=== PATIENT | female | born 1985 | race American Indian/Alaskan Native ===

== ENCOUNTER 2024-03-18 08:36 | Emergency (ER) | payer MEDICAID, SELFPAY ==
[2024-03-18 08:48] VITALS: BP 131/89; PULSE 81; RESP 16; TEMP 36.5; O2SAT 99; BMI 31.1
[2024-03-18 08:57] LABS: Appearance Urine Slightly Cloudy (Clear); Bilirubin Urine Negative (Negative); Blood Urine 1+ (Negative); Color Urine Yellow (Yellow); Glucose Urine Negative (Negative); Ketones Urine Negative (Negative); Leukocyte Esterase Urine Trace (Negative); Nitrite Urine Negative (Negative); Protein Urine Negative (Negative); Specific Gravity Urine 1.015 (1.000-1.030); Urobilinogen Urine 0.2 (0.2-1.0)
[2024-03-18 09:06] LABS: Bacteria Urine Few; RBC Urine 0-2 (0-2); Squamous Epithelial Cell Urine Few (None-Few); WBC Urine 0-2 (0-5)
--- NOTE | 2024-03-18 09:21 | ED.GENADULT ---
HPI - General Adult General Chief complaint: Urogenital Problems, Female Stated complaint: UTI symptoms, chills, abdominal and back pain Time Seen by Provider: 03/18/24 08:48 History of Present Illness HPI narrative: Patient is a 38-year-old female that has had dysuria and frequency the last few days. She has been drinking a lot a water. She has had urinary frequency inability to completely void, mild dysuria. No blood in her urine. She has had a history UTIs remotely but nothing recently. She feels she does have UTIs this seems similar in the past. She had a rash from amoxicillin during mono when she was 14, has not had any other penicillin at allergy symptoms. No shortness of breath, no fever, no rigors. Does feel occasionally chilled. She does not have a temp does not have a temperature now Related Data Home Medications ?Medication ?Instructions ?Recorded ?Confirmed clonazepam 0.5 mg tablet 0.5 mg PO HS PRN 03/18/24 03/18/24 dexmethylphenidate 15 mg 15 mg PO DAILY 03/18/24 03/18/24 capsule,extended release [id number] (Focalin XR) fluoxetine 20 mg capsule 60 mg PO DAILY 03/18/24 03/18/24 lorazepam 0.5 mg tablet (Ativan) 0.5 mg PO BID-TID PRN 03/18/24 03/18/24 Previous Rx's ?Medication ?Instructions ?Recorded phenazopyridine 200 mg tablet 200 mg PO Q8H PRN pain 6 doses #7 03/18/24 (Pyridium) tabs sulfamethoxazole 800 1 tab PO BID #14 tabs 03/18/24 mg-trimethoprim 160 mg tablet (Bactrim DS) Allergies Allergy/AdvReac Type Severity Reaction Status Date / Time Penicillins Allergy Severe Hives Verified 03/18/24 08:48 Review of Systems Status of ROS: Reports: 6 or more systems reviewed and unremarkable except as noted in History and below PFSH PFSH Social History Smoking Status: Never smoker Do you use any of these nicotine containing products: None Second hand tobacco smoke exposure: No How often do you have a drink containing alcohol: never AUDIT-C Alcohol total score: 0 Non-prescribed substance use: denies use Non-prescribed substance use details: 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 Exam Narrative: Exam Narrative: Objective: Patient's vital signs are within normal limits She is alert orient x3 no distress She has mild left-sided greater than right CVA tenderness, mild suprapubic tenderness to palpation. Neurologic nonfocal Alert orient x3, no cyanosis, good peripheral perfusion noted Const: Vital Signs, click to edit/add: Vital Signs - 24 hr 03/18/24 08:48 Temperature 97.7 F Pulse Rate [Pulse Oximeter] 81 Respiratory Rate 16 Blood Pressure [Ri t Upper Arm] 131/89 Pulse Oximetry 99 Oxygen Delivery Me thod Room Air Course Vital Signs Vital signs: Initial Vital Signs Temperature 97.7 F 03/18/24 08:48 Temperature Source Temporal Artery Scan 03/18/24 08:48 Pulse Rate 81 03/18/24 08:48 Pulse Rhythm Regular 03/18/24 08:48 Respiratory Rate 16 03/18/24 08:48 Blood Pressure 131/89 03/18/24 08:48 Blood Pressure Mean 103 03/18/24 08:48 Blood Pressure Position Sitting 03/18/24 08:48 Pulse Oximetry 99 03/18/24 08:48 Oxygen Delivery Method Room Air 03/18/24 08:48 Vital Signs Temperature 97.7 F 03/18/24 08:48 Pulse Rate 81 03/18/24 08:48 Respiratory Rate 16 03/18/24 08:48 Blood Pressure 131/89 03/18/24 08:48 Pulse Oximetry 99 03/18/24 08:48 Oxygen Delivery Method Room Air 03/18/24 08:48 Temperature 97.7 F 03/18/24 08:48 Pulse Rate 81 03/18/24 08:48 Respiratory Rate 16 03/18/24 08:48 Blood Pressure 131/89 03/18/24 08:48 Pulse Oximetry 99 03/18/24 08:48 Oxygen Delivery Method Room Air 03/18/24 08:48 Medications Administered Medications: Discontinued Medications Generic Name Dose Route Start Last Admin Trade Name Freq PRN Reason Stop Dose Admin Ceftriaxone Sodium 500 mg 03/18/24 09:14 03/18/24 09:26 Ceftriaxone 500 Mg Vial IM 03/18/24 09:15 500 mg ONCE ONE Administration Lidocaine HCl 1 ml 03/18/24 09:14 03/18/24 09:27 Lidocaine 1% 5 Ml (Pf) 5 Ml Vial IM 1 ml DIRECTED PRN Administration Pain Phenazopyridine HCl 200 mg 03/18/24 09:17 03/18/24 09:27 Phenazopyridine Hcl 200 Mg Tablet PO 03/18/24 09:18 200 mg ONCE ONE Administration Medical Decision Making MDM Narrative Medical decision making narrative: 38-year-old female with dysuria for inability for completely void frequency. Likely UTI. She has had a history UTI in the past. She has been drinking a large amount of water. She has a slightly cloudy urine, 1+ blood trace leukocyte esterase, not much for cells in the back urine but she does have bacteria. Culture will be obtained. I think at this point given the patient's symptoms of urinary frequency dysuria mild left greater than right flank discomfort , as well as suprapubic discomfort. Would make sense to do treatment for a UTI. Await urine culture. Will give her Rocephin 500 mg IM, give her Bactrim DS 1 p.o. b.i.d. x7 days, Pyridium for home use t.i.d. p.r.n. skin structure this will turn your urine orange. Return if not improving over the next 12-24 hours, sooner problems concerns worsening. Would recommend she recheck with regular doctor next 3-4 days, she was comfortable this plan will follow up as directed Lab Data Labs: Lab Results 03/18/24 Range/Units 08:45 Urine Color Yellow (Yellow) Urine Appearance Slightly Cloudy A (Clear) Urine pH 7.0 (5.0-8.5) Ur Specific [place] 1.015 (1.000-1.030) Urine Protein Negative (Negative) Urine Glucose (UA) Negative (Negative) Urine Ketones Negative (Negative) Urine Blood 1+ A (Negative) Urine Nitrite Negative (Negative) Urine Bilirubin Negative (Negative) Urine Urobilinogen 0.2 (0.2-1.0) Ur Leukocyte Esterase Trace A (Negative) Urine RBC 0-2 (0-2) Urine WBC 0-2 (0-5) Ur Squamous Epith Cells Few (None-Few) Urine Bacteria Few A (None) Discharge Plan Discharge Clinical Impression: Urinary tract infection, Dysuria Patient Disposition: Home, Self-Care Condition: Stable Additional Instructions: Antibiotics and pyridium at home as prescribed, light activity, adequate fluid intake. Recheck with regular doctor in 2-3 days, return to ED sooner problems concerns worsening. Activity Level: Light activity Discharge Diet: Regular Prescriptions: New sulfamethoxazole-trimethoprim [Bactrim DS] 800-160 mg tablet 1 tab PO BID Qty: 14 0RF phenazopyridine [Pyridium] 200 mg tablet 200 mg PO Q8H PRN (Reason: pain) Qty: 7 0RF No Action dexmethylphenidate [Focalin XR] 15 mg capsule,ER biphasic 50-50 15 mg PO DAILY fluoxetine 20 mg capsule 60 mg PO DAILY lorazepam [Ativan] 0.5 mg tablet 0.5 mg PO BID-TID PRN clonazepam 0.5 mg tablet 0.5 mg PO HS PRN Follow Up/Referrals: Provider,Not a Local [Primary Care Provider] - Stand Alone Forms: [employer] Info Instructions
[2024-03-18] MEDS: cefTRIAXone 500 MG VIAL IM (09:26)
[2024-03-18] MEDS: PHENAZOPYRIDINE HCL 200 MG TABLET PO (09:27)
[2024-03-18] MEDS: LIDOCAINE 1% 5 ml (pf) 5 ML VIAL 1 ML IM (09:27)
== END 2024-03-18 09:35 | disposition home or self-care (01) ==
PROVIDERS: Emergency Provider Family Medicine
DX: N39.0 Urinary tract infection, site not specified (principal)
CPT/HCPCS: 81001; 87086; 96372; 99283; 99284; A9270; J0696

== ENCOUNTER 2024-04-04 17:47 | Day surgery (SDC) | payer MEDICAID, SELFPAY ==
[2024-04-04 18:10] VITALS: BP 158/65; PULSE 99; RESP 24; TEMP 36.8; O2SAT 100; BMI 30.2
--- NOTE | 2024-04-04 18:25 | CRLHL7_ITS ---
For Patients: As a result of the Century Cures Act, medical imaging exams and procedure reports are released immediately into your electronic medical record. You may view this report before your referring provider. If you have questions, please contact your health care provider. INDICATION: RUQ pain COMPARISON: None. TECHNIQUE: Ultrasound abdomen limited. Real time yu scale imaging and color Doppler analysis was performed of the abdomen. FINDINGS: Liver: The liver is normal in size and echogenicity. No focal liver lesions identified. Gallbladder: Nonmobile gallstone in the gallbladder neck measuring approximately 1.5 centimeters in greatest dimension. Trace pericholecystic fluid and some regions of gallbladder wall thickening measuring up to 0.6 centimeters. Sonographic Ledesma`s sign is positive. Bile ducts: The common bile duct measures 4 mm in diameter. Pancreas: Not well visualized. Right kidney: The right kidney measures 10.1 cm in length. No hydronephrosis, calculus, or mass. Vascular: Normal caliber abdominal aorta. The IVC appears patent. IMPRESSION: Cholelithiasis with sonographic findings concerning for acute cholecystitis. Recommend consultation with surgery. Dictated by Mango Freed MD @ 04/04/2024 8:44:25 PM (Electronically Signed)
--- NOTE | 2024-04-04 18:30 | ED.GENADULT ---
HPI - General Adult General Date Seen: 04/04/24 Chief complaint: Abdominal Pain Stated complaint: Right lower abd pain, shaky, light headed Time Seen by Provider: 04/04/24 18:04 Source: patient, RN notes reviewed and old records reviewed Mode of arrival: ambulatory Limitations: no limitations History of Present Illness HPI narrative: Patient is a 38-year-old woman here for evaluation of right upper quadrant pain which started about 4 hours ago. It radiates to her back particularly when she lays down. She notes she has had this kind of pain before but it has always resolved within 1/2 hours so and has not been this severe. She feels shaky and nauseated. She has not had any vomiting. Denies constipation or diarrhea, black or bloody stools. No fevers. She was seen here a few weeks ago for some urinary symptoms, possible UTI although her UA and culture were negative. She completed her antibiotics, says that symptoms improved a little bit but she still feels like she has had some aching in her kidneys. She has not had dysuria or hematuria, denies history of kidney stones. She has a history of appendectomy denies other abdominal surgeries. She has been sober from alcohol for 2 years, does not drink or use any substances. She does vape. She is allergic to penicillin. Related Data Home Medications ?Medication ?Instructions ?Recorded ?Confirmed clonazepam 0.5 mg tablet 0.5 mg PO HS PRN 03/18/24 04/04/24 dexmethylphenidate 15 mg 15 mg PO DAILY 03/18/24 04/04/24 capsule,extended release [id number] (Focalin XR) fluoxetine 20 mg capsule 60 mg PO DAILY 03/18/24 04/04/24 lorazepam 0.5 mg tablet (Ativan) 0.5 mg PO BID-TID PRN 03/18/24 03/18/24 Previous Rx's ?Medication ?Instructions ?Recorded phenazopyridine 200 mg tablet 200 mg PO Q8H PRN pain 6 doses #7 03/18/24 (Pyridium) tabs sulfamethoxazole 800 1 tab PO BID #14 tabs 03/18/24 mg-trimethoprim 160 mg tablet (Bactrim DS) Allergies Allergy/AdvReac Type Severity Reaction Status Date / Time Penicillins Allergy Severe Hives Verified 04/04/24 18:09 Review of Systems Status of ROS: Reports: 10 or more systems reviewed and unremarkable except as noted in History and below [facility] Social History Smoking Status: Never smoker Do you use any of these nicotine containing products: None Second hand tobacco smoke exposure: No How often do you have a drink containing alcohol: never AUDIT-C Alcohol total score: 0 Non-prescribed substance use: denies use Non-prescribed substance use details: 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 Exam Narrative: Exam Narrative: Vital signs as noted above. In general, an alert, nontoxic woman, she standing in the room holding her right upper quadrant. Head: Normocephalic, atraumatic. Eyes: Pupils are equal reactive. Extraocular movements are full. Conjunctivae are normal. ENT: Mucous membranes are moist. Throat is normal. Neck: Supple without lymphadenopathy. Heart: Regular rate and rhythm. No murmur or rub. Lungs: Clear bilaterally. No increased work of breathing, crackles or wheezes. Abdomen: Soft and nondistended. She has diffuse tenderness but definitely greatest in the right upper quadrant with a positive Ledesma sign. Extremities: Well perfused. No edema. No calf tenderness. Pulses intact. Neurologic: Patient is alert and oriented to person and place. Speech is fluent. Face is symmetric. Moves all extremities equally. Affect: Normal. Skin: Warm and dry. Well perfused. Const: Vital Signs, click to edit/add: Vital Signs - 24 hr 04/04/24 18:10 04/04/24 19:30 04/04/24 20:10 Temperature 98.3 F Pulse Rate 97 Pulse Rate [Pulse Oximeter] 99 93 Respiratory Rate 24 12 16 Blood Pressure [Ri ght Upper Arm] 158/65 H 139/95 H Pulse Oximetry 100 100 100 Oxygen Delivery Me thod Room Air Room Air Documenting provider has reviewed patient's vital signs: yes Course Course ED Course: I did look with a bedside ultrasound, looks as if she may have a small stone in the neck of the gallbladder to me with some associated pericholecystic fluid. Kidney on that side look normal without hydronephrosis. I think therefore her reasonable starting point is to do a formal right upper quadrant ultrasound to evaluate for biliary colic, cholecystitis, choledocholithiasis. Labs including CBC, metabolic panel, liver function tests, lipase are pending at this time. Will give her 4 mg of morphine, 15 mg Toradol and 4 mg of Zofran IV for symptomatic relief here. Labs are all reassuring, CBC, metabolic panel, LFTs, lipase CRP are all normal, UA is negative, test is also negative. She did require a couple doses of morphine to get her pain reasonably controlled, is feeling fairly anxious and requested something for that so I just gave her a mg of Ativan. Preliminary report on her ultrasound is of a stone in the gallbladder neck which is immobile, pericholecystic fluid and positive sonographic Ledesma's. Final radiology read link below. Case discussed with Dr. Tripathi, general surgery. Plan will be for cholecystectomy tomorrow morning. She is penicillin allergic, recommended antibiotic by Dr. Tripathi was Levaquin so this is been given IV. Note that no hospital beds were available, so patient will stay in the ER overnight for pain control and general surgery consultation in the morning. Vital Signs Vital signs: Initial Vital Signs Temperature 98.3 F 04/04/24 18:10 Temperature Source Temporal Artery Scan 04/04/24 18:10 Pulse Rate 99 04/04/24 18:10 Respiratory Rate 24 04/04/24 18:10 Blood Pressure 158/65 H 04/04/24 18:10 Blood Pressure Mean 96 04/04/24 18:10 Blood Pressure Position Sitting 04/04/24 18:10 Pulse Oximetry 100 04/04/24 18:10 Oxygen Delivery Method Room Air 04/04/24 18:10 Vital Signs Temperature 98.3 F 04/04/24 18:10 Pulse Rate 99 04/04/24 18:10 Respiratory Rate 24 04/04/24 18:10 Blood Pressure 158/65 H 04/04/24 18:10 Pulse Oximetry 100 04/04/24 18:10 Oxygen Delivery Method Room Air 04/04/24 18:10 Temperature 98.3 F 04/04/24 18:10 Pulse Rate 93 04/04/24 20:10 Respiratory Rate 16 04/04/24 20:10 Blood Pressure 139/95 H 04/04/24 20:10 Pulse Oximetry 100 04/04/24 20:10 Oxygen Delivery Method Room Air 04/04/24 20:10 Medications Administered Medications: Generic Name Dose Route Start Last Admin Trade Name Freq PRN Reason Stop Dose Admin Levofloxacin/Dextrose 500 mg in 100 mls @ 100 mls/hr 04/04/24 19:56 04/04/24 20:08 Levofloxacin 500 Mg/100 Ml D5w IVPB 04/04/24 20:55 100 mls/hr ONCE ONE Administration Lorazepam 1 mg 04/04/24 20:14 04/04/24 20:25 Lorazepam 1 Mg Tablet PO 04/04/24 20:15 1 mg ONCE ONE Administration Discontinued Medications Generic Name Dose Route Start Last Admin Trade Name Jovi PRN Reason Stop Dose Admin Ketorolac Tromethamine 15 mg 04/04/24 18:22 04/04/24 18:46 Ketorolac 15 Mg/Ml Inj IVP 04/04/24 18:23 15 mg ONCE ONE Administration Morphine Sulfate 4 mg 04/04/24 18:22 04/04/24 18:45 Morphine 4 Mg/Ml Inj IVP 04/04/24 18:23 4 mg ONCE ONE Administration Morphine Sulfate 4 mg 04/04/24 19:06 04/04/24 19:32 Morphine 4 Mg/Ml Inj IVP 04/04/24 19:07 4 mg ONCE ONE Administration Ondansetron HCl 4 mg 04/04/24 18:22 04/04/24 18:45 Ondansetron 2 Mg/Ml Inj IVP 04/04/24 18:23 4 mg ONCE ONE Administration Medical Decision Making Lab Data Labs: Lab Results 04/04/24 04/04/24 Range/Units 18:42 20:00 WBC 7.88 (4.50-11.00) K/uL RBC 4.42 (4.00-5.20) m/uL Hgb 12.8 (12.0-16.0) gm/dL Hct 38.7 (33.0-51.0) % MCV 88 (80-100) fL MCH 29 (26-34) pg MCHC 33 (32-36) gm/dL RDW Coeff of Vahe 12.0 (11.5-15.5) % Plt Count 360 (140-440) K/uL Neut % (Auto) 56.2 (42.0-72.0) % Lymph % (Auto) 35.7 (20-44) % [place] % (Auto) 5.8 (0.0-11.0) % Eos % (Auto) 1.6 (0.0-7.0) % Baso % (Auto) 0.3 (0.0-3.0) % Neut # (Auto) 4.43 (1.7-7.0) K/uL Lymph # (Auto) 2.81 (0.90-2.90) K/uL [place] # (Auto) 0.50 (0.00-0.90) K/UL Eos # (Auto) 0.13 (0.00-0.50) K/uL Baso # (Auto) 0.02 (0.00-0.30) K/uL Abs Immat Gran (auto) 0.03 (0.00-0.30) K/uL Imm/Tot Granulo (auto) 0.4 % Sodium 138 (135-149) mmol/L Potassium 3.8 (3.6-5.1) mmol/L Chloride 104 (96-114) mmol/L Carbon Dioxide 25 (20-32) mmol/L Anion Gap 9 (7-15) mEq/L BUN 17 (5-24) mg/dL Creatinine 0.6 (0.5-1.5) mg/dL Estimated Creat Clear 101.53 Estimated GFR 118 ml/min Glucose 99 (60-115) mg/dL Lactate 1.2 (0.5-1.9) mmol/L Calcium 9.6 (8.4-10.6) mg/dL Total Bilirubin 0.2 (0.1-1.5) mg/dL Direct Bilirubin 0.1 (0.0-0.5) mg/dL AST 22 (12-35) U/L ALT 21 (4-35) U/L Alkaline Phosphatase 83 (40-150) U/L C-Reactive Protein < 0.5 L (0.5-1.0) mg/dL Total Protein 7.9 (6.0-8.3) g/dL Albumin 4.8 (3.3-5.0) g/dL Lipase 103 (23-300) U/L Urine Color Yellow (Yellow) Urine Appearance Slightly Cloudy A (Clear) Urine pH 7.0 (5.0-8.5) Ur Specific [place] 1.020 (1.000-1.030) Urine Protein Negative (Negative) Urine Glucose (UA) Negative (Negative) Urine Ketones Negative (Negative) Urine Blood Negative (Negative) Urine Nitrite Negative (Negative) Urine Bilirubin Negative (Negative) Urine Urobilinogen 0.2 (0.2-1.0) Ur Leukocyte Esterase Negative (Negative) Urine RBC 0-2 (0-2) Urine WBC 0-2 (0-5) Ur Squamous Epith Cells Moderate A (None-Few) Urine Bacteria Few A (None) Urine HCG, Qual Negative (Negative) Imaging Data US - abdomen: Radiologist's impression: Patient: BARB AKERS Facility: [facility] . Site : 1985 Study: US-Abdomen/Pelvis LIMITED RUQ-04/04/2024 7:55:39 PM Ordering Physician: Zack Gilbert Final Report: INDICATION: RUQ pain COMPARISON: None. TECHNIQUE: Ultrasound abdomen limited. Real time yu scale imaging and color Doppler analysis was performed of the abdomen. FINDINGS: Liver: The liver is normal in size and echogenicity. No focal liver lesions identified. Gallbladder: Nonmobile gallstone in the gallbladder neck measuring approximately 1.5 centimeters in greatest dimension. Trace pericholecystic fluid and some regions of gallbladder wall thickening measuring up to 0.6 centimeters. Sonographic Ledesma`s sign is positive. Bile ducts: The common bile duct measures 4 mm in diameter. Pancreas: Not well visualized. Right kidney: The right kidney measures 10.1 cm in length. No hydronephrosis, calculus, or mass. Vascular: Normal caliber abdominal aorta. The IVC appears patent. IMPRESSION: Cholelithiasis with sonographic findings concerning for acute cholecystitis. Recommend consultation with surgery. Discharge Plan Discharge Clinical Impression: Acute cholecystitis Patient Disposition: XFER to OR Condition: Stable Follow Up/Referrals: Provider,Not a Local [Primary Care Provider] -
--- OUTSIDE RECORDS SUMMARY | 2024-04-04 18:42 | XMS_ITS | Encounter Summary ---
Author Organization [place] Address [facility] [place] [address] Care Team Providers Care Plant Attendant Name Role Phone Shannan Malcolm CNP Unavailable [phone] Shannan Malcolm CNP Primary Care Provider [phone] Mattie Tellez APRN RIVER TESTER Unavailable [phone] Encounter Details Date Type Department Care Team (Late st Contact Info) Description 03/25/2024 [facility] [place] [facility] [address] [address] [place] [address] Mattie Tellez APRN RIVER TESTER [address] [facility] [address] [place], [place] [id number] Social History Tobacco Use Types Packs/Day Years Used Date Smoking Tobacco: Former Cigarettes 0 12/2018 - 12/2022 Smokeless Tobacco: Never Comments: 12/10/2022 patient using nicotine patch and lozenges and on the path to quitting smoking. 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 Clonazepam script sent today: clonazePAM (KLONOPIN) 0.5 MG tablet 15 tablet 0 03/25/2024 -- No Sig - Route: Take 0.5 tablets (0.25 mg) by mouth 2 times daily as needed for anxiety. 15 tablets for 30 days. No early refills. - Oral Per 03/14/2024 encounter, patient is changing from lorazepam to clonazepam and this appears to be the first fill of clonazepam. Patient may have been at a different dose of clonazepam in the past. RN acknowledged patients message and asked clarifying questions regarding dosing . Routing to provider to review. Mariann Maloney RN on 03/25/2024 at 1:18 PM documented in this encounter Plan of Treatment Upcoming Encounters Date Type Department Care Team (Late st Contact Info) Description 04/06/2024 7:30 AM CDT Virtual Visit [facility] [address] [place] [address] [address] [place] [address] Lexi Farnsworth, ATHLETICS TEACHER [address] [place], [place] [id number] 04/06/2024 8:00 AM CDT Virtual Visit [facility] [address] [place] [id number] Mattie Tellez APRN RIVER TESTER [address] [place], [place] [phone] documented as of this encounter Visit Diagnoses Not on filedocumented in this encounter Additional Health Concerns Assessment Noted Time PHQ-9 Depression Total Score: 9 03/02/20 24 8:53 AM CDT documented as of this encounter Care Teams Plant Attendant Relationship Specialty Start Date End Date Shannan Malcolm, [place] [address] [place], [place] [id number] PCP - General Nurse Practitioner - Family 07/09/22 Shannan Malcolm CNP [address] [place] [id number] Assigned PCP 04/07/22 Mattie Tellez APRN CNP [address] [place] [id number] Assigned Behavioral Health Provider 09/22/22 documented as of this encounter
--- OUTSIDE RECORDS SUMMARY | 2024-04-04 18:42 | XMS_ITS | Encounter Summary ---
Author Organization [facility] Address [address] [place] [address]. [place] [address] Care Team Providers Care Pot Washer Name Role Phone Shannan Malcolm WINE SPECIALIST Unavailable [phone] Shannan Malcolm CNP Primary Care Provider [phone] Mattie Tellez APRN WINE SPECIALIST Unavailable [phone] Encounter Details Date Type Department Care Team ([facility] Contact Info) Description 02/26/2024 [facility] [place] [id number] [address] [address] Angie Hernández Social History Tobacco Use Types Packs/Day Years Used Date Smoking Tobacco: Former Cigarettes 0 12/2018 - 12/2022 Smokeless Tobacco: Never Comments: 12/10/2022 patient using nicotine patch and lozenges and on the path to quitting smoking. 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 Gender Identity Female 02/08/2022 7:17 AM CDT Sexual Orientation Choose not to disclose 2021 7:17 AM CDT documented as of this encounter Plan of Treatment Upcoming Encounters Date Type Department Care Team (Late st Contact Info) Description 04/06/2024 7:30 AM CDT Virtual Visit [facility] [address] [place] [address] Lexi Farnsworth, [facility] [address] [place] [address] 04/06/2024 8:00 AM CDT Virtual Visit [facility] [address] [place] [phone] Mattie Tellez APRN WINE SPECIALIST [address] [place], [place] [address] documented as of this encounter Visit Diagnoses Not on filedocumented in this encounter Additional Health Concerns Assessment Noted Time PHQ-9 Depression Total Score: 6 01/01/20 24 10:48 AM CDT documented as of this encounter Care Teams Pot Washer Relationship Specialty Start Date End Date Shannan Malcolm CNP [address] [place] [address] PCP - General Nurse Practitioner - Family 07/09/22 Shannan Malcolm CNP [address] [place] [address] Assigned PCP 04/07/22 Mattie Tellez APRN WINE SPECIALIST [address] [place] [address] Assigned Behavioral Health Provider 09/22/22 documented as of this encounter
--- OUTSIDE RECORDS SUMMARY | 2024-04-04 18:42 | XMS_ITS | Encounter Summary ---
Author Organization [facility] Address [address] [place] [address] Care Team Providers Care Registered Land Surveyor Name Role Phone Shannan Malcolm CNP Unavailable [phone] Shannan Malcolm CNP Primary Care Provider [phone] Mattie Tellez APRN SLAB LIFTING ENGINEER Unavailable [phone] Reason for Visit * Reason Onset Date Comments Refill Request 03/29/2024 Encounter Details Date Type Department Care Team (Late st Contact Info) Description 03/29/2024 MyC Refill [address] [address] Shannan Malcolm, SLAB LIFTING ENGINEER [address] [place], [place] [id number] Refill Request Social History Tobacco Use Types Packs/Day Years [...] on file 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 Confirm patient is taking this medication. Document findings and route refill encounter to provider for approval or denial. Heidy Salas RN, BSN PHN documented in this encounter Plan of Treatment Upcoming Encounters Date Type Department Care Team (Late st Contact Info) Description 04/06/2024 7:30 AM CDT Virtual Visit [facility] [address] [place] [address] [address] [place] [address] Lexi Farnsworth, [facility] [address] [facility] [address] [place], [place] [id number] 04/06/2024 8:00 AM CDT Virtual Visit [facility] [address] [place] [address] [address] [place] [phone] Mattie Tellez APRN SLAB LIFTING ENGINEER [address] [place], [place] [address] documented as of this encounter Visit Diagnoses Diagnosis Generalized anxiety disorder with panic attacks documented in this encounter Additional Health Concerns Assessment Noted Time PHQ-9 Depression Total Score: 9 03/02/20 24 8:53 AM CDT documented as of this encounter Care Teams Registered Land Surveyor Relationship Specialty Start Date End Date Shannan Malcolm CNP [address] [place] [id number] PCP - General Nurse Practitioner - Family 07/09/22 Shannan Malcolm CNP [address] [place], [place] [id number] Assigned PCP 04/07/22 Mattie Tellez APRN SLAB LIFTING ENGINEER [address] [place] [address] Assigned Behavioral Health Provider 09/22/22 documented as of this encounter
--- OUTSIDE RECORDS SUMMARY | 2024-04-04 18:42 | XMS_ITS | Encounter Summary ---
Author Organization [facility] Address [address] [place] [address] Care Team Providers Care Glass Selector Name Role Phone Shannan Malcolm CNP Unavailable [phone] Shannan Malcolm CNP Primary Care Provider [phone] Mattie Tellez APRN DIRECT RESPONSE CONSULTANT Unavailable Reason for Visit * Reason Onset Date Comments Refill Request 03/16/2024 Encounter Details Date Type Department Care Team (Late st Contact Info) Description 03/16/2024 MyC Refill [facility] [address] [place] [address] Mattie Tellez, [place] DIRECT RESPONSE CONSULTANT [address] [place] [address] Refill Request Social History Tobacco Use Types [...] on file 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 Date of Last Office Visit: 02/23/24 Date of Next Office Visit: 04/06/24 No shows since last visit: No More than one patient-initiated cancellation (with reschedule) since last seen in clinic? No []Medication refilled per ???Medication Refill in Automatic Vulcanizing Lead Operator?? policy. [x]Medication unable to be refilled by RN due to criteria not met as indicated below: []Eligibility: has not had a provider visit within last 6 months []Supervision: no future appointment; < 7 days before next appointment []Compliance: no shows; cancellations; lapse in therapy []Verification: order discrepancy; may need modification... [] > 30-day supply request []Advanced refill request: > 7 days before refill date [x]Controlled medication []Medication not included in policy []Review: new med; med adjusted <= 30 days; safety alert; requires lab monitoring... []Scope of Practice: refill request processed by TERRY/LEVI []Other: Medication(s) requested: - dexmethylphenidate (FOCALIN XR) 10 MG 24 hr capsule Date last ordered: 02/17/24 Qty: 30 Refills: 0 Appropriate for refill? Provider to review. - dexmethylphenidate (FOCALIN XR) 5 MG 24 hr capsule Date last ordered: 02/17/24 Qty: 30 Refills: 0 Appropriate for refill? Provider to review. (Note fyi Focalin 5 mg afternoon dose was refilled on 03/09/24) Any Controlled Substance(s)? YES Requested medication(s) verified as identical to current order? Yes Any lapse in adherence to medication(s) greater than 5 days? Unknown Additional action taken? none. Last visit treatment plan: Treatment Plan: START hydroxyzine 10 mg (1/2-1 tablet) up to twice a day for insomnia, anxiety. Script sent for #30. CONTINUE clonidine 0.1 mg at bedtime, with 0.1 mg during day as needed for anxiety. Monitor blood pressure. CONTINUE lorazepam 0.5 mg up to twice a day as needed for severe anxiety. Script sent for #60 for 30 days to be filled after 02/25/24. No early refills. CONTINUE fluoxetine 60 mg (40 mg + 20 mg) every day. Scripts sent for #90. CONTINUE Focalin XR 15 mg (10 mg + 5 mg) every day. No script needed. CONTINUE focalin 5 mg every day in the afternoon. No script needed. Continue all other medications per primary care provider. Referral placed for DBT. [facility] will call you to coordinate your care as prescribed by your provider. If you don't hear from a customer account representative within 2 business days, please call [phone]. Safety plan reviewed. To the Emergency Department as needed or call after hours crisis line at [phone] or [phone]. [place] Crisis Text Line. Text [place] to 297507 or Suicide LifeLine Chat: suicidepreventionlifeline.org/chat Schedule an appointment with la and Behavioral Health Stem Teacher in 4 weeks or sooner as needed. Call [facility] at [phone] to schedule. Follow up with primary care provider as planned or for acute medical concerns. Call the psychiatric nurse line with medication questions or concerns at [phone]. MyChart may be used to communicate with your provider, but this is not intended to be used for emergencies. Any medication(s) require lab monitoring? No unless UDS needed documented in this encounter Plan of Treatment Upcoming Encounters Date Type Department Care Team (Late st Contact Info) Description 04/06/2024 7:30 AM CDT Virtual Visit [facility] [address] [place] [address] [address] [place] [phone] Lexi Farnsworth, WAREHOUSER [address] [place] [address] 04/06/2024 8:00 AM CDT Virtual Visit [facility] [address] [place] [address] [address] [place] [address] Mattie Tellez APRN DIRECT RESPONSE CONSULTANT [address] [place] [address] documented as of this encounter Visit Diagnoses Diagnosis Attention deficit hyperactivity disorder (ADHD), unspecified ADHD type documented in this encounter Additional Health Concerns Assessment Noted Time PHQ-9 Depression Total Score: 9 03/02/20 24 8:53 AM CDT documented as of this encounter Care Teams Glass Selector Relationship Specialty Start Date End Date Shannna Malcolm CNP [address] [place] [id number] PCP - General Nurse Practitioner - Family 07/09/22 Shannan Malcoml CNP [address] [place] [id number] Assigned PCP 04/07/22 Mattie Tellez APRN DIRECT RESPONSE CONSULTANT [address] [place] [address] Assigned Behavioral Health Provider 09/22/22 documented as of this encounter
--- OUTSIDE RECORDS SUMMARY | 2024-04-04 18:42 | XMS_ITS | Referral Summary ---
Author Organization [facility] Address [address] [place] [address] Care Team Providers Care Tiedown Operator Name Role Phone Shannan Malcolm CNP Unavailable [phone] Shannan Malcolm CNP Primary Care Provider [phone] Mattie Tellez APRN, CNP Unavailable [phone] Encounters Date Type Department Care Team Description 03/29/2024 MyC Refill [facility] & Addiction [facility] [address] [phone] Mattie Tellez APRN CNP Refill Request 03/29/2024 MyC Refill [address] [phone] Shannan Malcolm CNP Refill Request 03/25/2024 MyC Medical Advice [facility] Mental Health & Addiction [facility] [address] [phone] Mattie Tellez APRN CNP 03/17/2024 Orders Only [facility] Mental [facility] & Addiction [facility] [address] [phone] Mattie Tellez APRN CNP Generalized anxiety disorder with panic attacks (Primary Dx) 03/16/2024 MyC Refill [facility] Mental [facility] & Addiction [facility] [address] [phone] Mattie Tellez APRN CNP Refill Request 03/14/2024 MyC Medical Advice [facility] & Addiction [facility] [address] [place] [phone] Mattie Tellez APRN CNP Medication Request (Change anti-anxiety me... 03/09/2024 MyC Refill [facility] & [facility] [address] [place] [address] [address] [place] [phone] Mattie Tellez APRN CNP Refill Request (Focalin 5 mg) 03/02/2024 1:00 PM CDT Virtual Visit [address] [place] [phone] Shannan Malcolm CNP Infection due to 2019 novel coronavirus (Primary Dx); Mild intermittent asthma without complication 03/02/[address] [place] [phone] Shannan Malcolm CNP 02/26/2024 MyC Medical Advice [facility] & Addiction [place] [phone] [phone] Betty [facility] 02/24/[address] [phone] Shannan Malcolm CNP Refill Request (Prozac 40) 02/24/2024 MyC Refill [facility] [address] [place] [phone] Mattie Tellez APRN CNP Refill Request 02/24/2024 10:30 AM CDT Virtual Visit [facility] [address] [place] [address] [address] [place] [phone] Mattie Tellez APRN CNP Generalized anxiety disorder with panic attacks (Primary Dx); PTSD (post-traumatic stress disorder); Attention deficit hyperactivity disorder (ADHD), predominantly inattentive type; Alcohol use disorder in remission; MDD (major depressive disorder), recurrent episode, mild (H) 02/17/2024 MyC Refill [facility] [address] [place] [address] [address] [place] [phone] Mattie Tellez APRN CNP Refill Request (dexmethylphenidate (FOCALI... 02/17/2024 MyC Refill [facility] [address] [place] [address] [address] [place] [phone] Mattie Tellez APRN CNP Refill Request (dexmethylphenidate (FOCALI... 01/27/2024 8:00 AM CDT Virtual Visit [facility] [address] [place] [address] [address] [place] [phone] Mattie Tellez APRN CNP Generalized anxiety disorder with panic attacks (Primary Dx); PTSD (post-traumatic stress disorder); Alcohol use disorder in remission; MDD (major depressive disorder), recurrent episode, mild (H); Attention deficit hyperactivity disorder (ADHD), predominantly inattentive type 01/23/2024 MyC Refill [facility] [address] [place] [address] [address] [place] [phone] Mattie Tellez APRN CNP Refill Request (lorazepam (ATIVAN) 0.5 MG ... 01/17/2024 MyC Medical Advice [facility] [address] [place] [address] [address] [place] [phone] Mattie Tellez APRN CNP 01/10/2024 Orders Only [facility] [address] [place] [address] [address] [place] [phone] Mattie Tellez APRN CNP CATHY (generalized anxiety disorder) 01/10/2024 MyC Medical Advice [facility] [address] [place] [address] [address] [place] [address] Mattie Tellez, BIOMEDICAL EQUIPMENT SPECIALIST MOVER Medication not working (Diazepam ) from Last 3 Months Allergies Active Allergy Reactions Criticality Noted Date Comments Penicillins 09/04/2005 Rash Medications * This document contains information received from the source organization and may not represent a complete record from that organization. levonorgestrel (MIRENA) 20 MCG/24HR IUDIndications:pl aced 2010 1 each by Intrauterine route once Active cloNIDine (CATAPRES) 0.1 MG tabletIndications :PTSD (post-traumatic stress disorder) Take 1 tablet (0.1 mg) by mouth at bedtime. May also take 1 tablet (0.1 mg) daily as needed (anxiety). 60 tablet 02/24/20 24 Active FLUoxetine (PROZAC) 20 MG capsuleIndication s:Generalized anxiety disorder with panic attacks,PTSD (post-traumatic stress disorder) Take 1 capsule (20 mg) by mouth daily. With fluoxetine 40 mg for total daily dose of 60 mg. 90 capsule 02/24/20 24 Active FLUoxetine (PROZAC) 40 MG capsuleIndication s:Generalized anxiety disorder with panic attacks Take 1 capsule (40 mg) by mouth daily. With fluoxetine 20 mg for total daily dose of 60 mg. 90 capsule 02/24/20 24 Active LORazepam (ATIVAN) 0.5 MG tabletIndications :Generalized anxiety disorder with panic attacks Take 1 tablet (0.5 mg) by mouth 2 times daily as needed (panic). to last 30 days. 60 tablet 02/25/20 24 Active mirtazapine (REMERON) 7.5 MG tabletIndications :Generalized anxiety disorder with panic attacks Take 1 tablet (7.5 mg) by mouth at bedtime. 03/02/20 24 Active albuterol (PROVENTIL) (2.5 MG/3ML) 0.083% neb solutionIndicatio ns:Mild intermittent asthma without complication Take 1 vial (2.5 mg) by nebulization every 6 hours as needed for shortness of breath, wheezing or cough. 90 mL 03/02/20 24 Active dexmethylphenidat e (FOCALIN) 5 MG tabletIndications :Attention deficit hyperactivity disorder (ADHD), predominantly inattentive type Take 1 tablet (5 mg) by mouth daily. as needed in the afternoon for ADHD. 30 tablet 03/09/20 24 Active dexmethylphenidat e (FOCALIN XR) 10 MG 24 hr capsuleIndication s:Attention deficit hyperactivity disorder (ADHD), unspecified ADHD type Take 1 capsule (10 mg) by mouth every morning. With Focalin XR 5 mg for total dose of 15 mg. 30 capsule 03/17/20 24 Active dexmethylphenidat e (FOCALIN XR) 5 MG 24 hr capsuleIndication s:Attention deficit hyperactivity disorder (ADHD), unspecified ADHD type Take 1 capsule (5 mg) by mouth every morning. With Focalin XR 10 mg for total dose of 15 mg. 30 capsule 03/17/20 24 Active clonazePAM (KLONOPIN) 0.5 MG tabletIndications :Generalized anxiety disorder with panic attacks Take 0.5 tablets (0.25 mg) by mouth 2 times daily as needed for anxiety. 15 tablets for 30 days. No early refills. 15 tablet 03/25/20 24 Active hydrOXYzine HCl (ATARAX) 10 MG tabletIndications :Generalized anxiety disorder with panic attacks Take 1/2 - 1 tablet (5-10 mg) by mouth up to 2 times daily as needed for anxiety or other (insomnia). Monitor for drowsiness. 30 tablet 03/30/20 24 Active dexmethylphenidat e (FOCALIN) 5 MG tabletIndications :Attention deficit hyperactivity disorder (ADHD), predominantly inattentive type Take 1 tablet (5 mg) by mouth daily as needed in the afternoon for ADHD. 30 tablet 02/07/20 24 024 Discontin ued(Reord er (No AVS)) dexmethylphenidat e (FOCALIN XR) 10 MG 24 hr capsuleIndication s:Attention deficit hyperactivity disorder (ADHD), unspecified ADHD type Take 1 capsule (10 mg) by mouth every morning. With Focalin XR 5 mg for total dose of 15 mg. 30 capsule 02/17/20 24 024 Discontin ued(Reord er (No AVS)) dexmethylphenidat e (FOCALIN XR) 5 MG 24 hr capsuleIndication s:Attention deficit hyperactivity disorder (ADHD), unspecified ADHD type Take 1 capsule (5 mg) by mouth every morning. With Focalin XR 10 mg for total dose of 15 mg. 30 capsule 02/17/20 24 024 Discontin ued(Reord er (No AVS)) hydrOXYzine HCl (ATARAX) 10 MG tabletIndications :Generalized anxiety disorder with panic attacks Take 1/2 - 1 tablet (5-10 mg) by mouth up to 2 times daily as needed for anxiety or other (insomnia). Monitor for drowsiness. 30 tablet 02/24/20 24 024 Discontin ued(Reord er (No AVS)) Active Problems Problem Noted Date Diagnosed Date MDD (major depressive disorder), recurrent episo de, mild 01/27/2024 PTSD (post-traumatic stress disorder) 09/27/2022 Attention deficit hyperactiv ity disorder (ADHD), predominantly inattentive type 09/27/2022 Generalized anxiety disorder with panic attacks 05/28/2022 Alcohol use disorder in remission 11/13/2021 Alcohol withdrawal seizure with complication 11/2021 Elevated blood pressure read ing without diagnosis of hypertension 09/03/2017 Controlled substance agreement signed 01/20/2014 Overview (01/20/2014): Patient is followed by Azra Shine NP, PEDIATRIC PSYCHIATRIST for ongoing prescription of a controlled medicine. Medicine: Klonopin 0.5mg Maximum use per month: 3o tablets/month. Expected duration: undetermined. Medication agreement on file: YES - signed: 11/2013. Clinic visit recommended: every 4 months IUD (intrauterine device) in place 03/20/2012 Overview (03/20/2012): Placed 12/2011 ASCUS with positive high risk HPV cervical 02/26 Overview (10/28/2017): 02/26/11: ASCUS, + HPV 59. Plan colp. 05/02/11: Lost to pap tracking. 06/29/11: Pap - NIL PLAN: repap six months, in reminders 03/21: NIL pap. Plan pap in 1 yr. 06/02/13: Lost to pap tracking 10/09/16: NIL pap, Neg HR HPV result. Plan cotest in 1 year per provider. 10/14/17: NIL pap, Neg HR HPV result. Plan cotest in 3 years per provider. Normal delivery 01/05/2011 CARDIOVASCULAR SCREENING; LDL GOAL LESS THAN 160 04/09/2010 Seizure disorder 10/26/2009 POD (perioral dermatitis) 12/17/2008 Mild intermittent asthma 09/04/2005 Overview (09/04/2005): exercise related Allergic state Overview (03/10/2015): Problem list name updated by automated process. Provider to review Resolved Problems Problem Noted Date Diagnosed Date Resolved Date MDD (major depressive disord er), recurrent episode, moderate 05/28/2022 01/27/2024 Inattention 05/28/2022 10/18/2023 Mixed anxiety depressive disorder 11/23/2021 09/27/2023 Hypertension 05/26/2015 10/09/2016 Major Depressive Disorder, S marcia Episode, Moderate - Neena Deactivated 12/17/2008 Anxiety 10/18/2023 Immunizations Name Administration Dates Next Due Flu, Unspecified 08/01/2023 Influenza (IIV3) PF 03/20/2012,04/09/2011,2009 Influenza Vaccine >6 months,quad, PF 07/22/2023 MMR 02/01/1999 Pneumococcal 23 valent 07/16/2009 TD,PF 7+ (Tenivac) 01/08/1998 TDAP Vaccine (Adacel) 05/31/2017 TDAP Vaccine (Boostrix) 06/29/2011 Social History Tobacco Use Types Packs/Day Years Used Date Smoking Tobacco: Former Cigarettes 0 12/2018 - 12/2022 Smokeless Tobacco: Never Tobacco Cessation:Counseling Given: Not Answered Comments: 12/10/2022 patient using nicotine patch and [...] on file 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 Gender Identity Female 02/08/2022 7:17 AM CDT Sexual Orientation Choose not to disclose 2021 7:17 AM CDT Last Filed Vital Signs Vital Sign Reading Time Taken Comments Blood Pressure 102/68 11/17/2021 7:53 AM CDT Pulse 73 11/17/2021 7:53 AM CDT Temperature 36.3 ??C (97.3 ??F) 11/17/2021 7:53 AM CD T Respiratory Rate 15 11/17/2021 7:53 AM CDT Oxygen Saturation 98% 11/17/2021 7:53 AM CDT Inhaled Oxygen Concentration - - Weight 77.6 kg (171 lb) 02/24/2024 10:16 AM CDT None taken Height 157.5 cm (5' 2) 01/27/2024 7:56 AM CDT Body Mass Index 31.28 01/27/2024 7:56 AM CDT Plan of Treatment Upcoming Encounters Date Type Department Care Team (Late st Contact Info) Description 04/06/2024 7:30 AM CDT Virtual Visit [facility] [address] [place] [address] [address] [place] [address] Lexi Farnsworth, INSURANCE AGENCY MANAGER [address] [place], [place] [phone] 04/06/2024 8:00 AM CDT Virtual Visit [facility] [address] [address] [place] [phone] Mattie Tellez, BIOMEDICAL EQUIPMENT SPECIALIST MOVER [address] [place], [place] [phone] Procedures Procedure Name Priority Date/Time Associated Diagnosis Comments COMPREHENSIVE METABOLIC PANEL Routine 02/16/2022 10:35 AM CDT Alcohol dependence in remission (H) HIV ANTIGEN ANTIBODY COMBO Routine 10/14/2017 10:05 AM CDT Screening for human immunodeficiency virus ALBUMIN RANDOM URINE QUANTITATIVE Routine 10/14/2017 10:04 AM CDT Elevated blood pressure reading without diagnosis of hypertension HPV HIGH RISK TYPES DNA CERVICAL Routine 10/14/2017 9:54 AM CDT Screening for malignant neoplasm of cervix ASCUS with positive high risk HPV cervical PAP IMAGED THIN LAYER SCREEN Routine 10/14/2017 9:40 AM CDT Screening for malignant neoplasm of cervix ASCUS with positive high risk HPV cervical ASTHMA ACTION PLAN Routine 10/09/2016 10 :01 AM CDT from Last 3 Months or Most Recently Relevant to Health Maintenance Results * (ABNORMAL) Comprehensive metabolic panel (BMP + Alb, Alk Phos, ALT, AST, Total. Bili, TP) (02/16/2022 10:35 AM CDT) Sodium 140 133 - 144 mmol/L 02/17/2022 10:51 AM CDT [facility] Potassium 4.0 3.4 - 5.3 mmol/L 02/17/2022 10:51 AM CDT [facility] Chloride 110(H) 94 - 109 mmol/L 02/17/2022 10:51 AM CDT [facility] Carbon Dioxide (CO2) 22 20 - 32 mmol/L 02/17/2022 10:51 AM CDT [facility] Anion Gap 8 3 - 14 mmol/L 02/17/2022 10:51 AM CDT [facility] Urea Nitrogen 14 7 - 30 mg/dL 02/17/2022 10:51 AM CDT [facility] Creatinine 0.69 0.52 - 1.04 mg/dL 02/17/2022 10:51 AM CDT [facility] Calcium 9.4 8.5 - 10.1 mg/dL 02/17/2022 10:51 AM CDT [facility] Glucose 79 70 - 99 mg/dL 02/17/2022 10:51 AM CDT [facility] Alkaline Phosphatase 77 40 - 150 U/L 02/17/2022 10:51 AM CDT [facility] AST 21 0 - 45 U/L 02/17/2022 10:51 AM CDT [facility] ALT 34 0 - 50 U/L 02/17/2022 10:51 AM CDT [facility] Protein Total 7.7 6.8 - 8.8 g/dL 02/17/2022 10:51 AM CDT [facility] Albumin 4.1 3.4 - 5.0 g/dL 02/17/2022 10:51 AM CDT [facility] Bilirubin Total 0.2 0.2 - 1.3 mg/dL 02/17/2022 10:51 AM CDT [facility] GFR Estimate >90 >60 mL/min/1.7 3m2 02/17/2022 10:51 AM CDT [facility] Comment:Effective May 112020 eGFRcr in adults is calculated using the 2020 CKD-EPI creatinine equation which includes age and gender (Octavio et al., [place], DOI: 10.1056/ZUKKgw3722581) Blood BLOOD SPECIMEN / Unknown Venipuncture / Unknown 02/16/2022 10:35 AM CDT 02/16/2022 10:35 AM CDT us Shannan Malcolm CNP LAB - BLOOD ORDERABLES Fi nal Result [facility] [address] Lab (no room number, 1st floor of clinic) [place] [address] [phone] * HIV Antigen Antibody Combo (10/14/2017 10:05 AM CDT) HIV Antigen Antibody Combo Nonreactive NR^Nonrea ctive 10/15/2017 11:16 AM CDT [facility] Comment:HIV-1 p24 Ag & HIV-1 /HIV-2 Ab Not Detected Blood specimen (specimen) 10/14/2017 10:05 AM CDT 10/14/2017 10:06 AM CDT us Noreen Buitrago PA-C LAB - BLOOD ORDERABLES Fi nal Result [facility] [address] [place] [address] * Albumin Random Urine Quantitative with Creat Ratio (10/14/2017 10:04 AM CDT) Creatinine Urine 34 mg/dL 10/14/2017 6:08 PM CDT [facility] Albumin Urine mg/L <5 mg/L 10/14/2017 6:13 PM CDT [facility] Albumin Urine mg/g Cr Unable to calculate due to low value 0 - 25 mg/g Cr 10/14/2017 6:13 PM CDT [facility] Urine specimen (specimen) 10/14/2017 10:04 AM CDT 10/14/2017 10:05 AM CDT us Noreen Buitrago PA-C LAB - URINE ORDERABLES Fi nal Result [facility] [address] [place] [address], [facility] [phone] * HPV High Risk Types DNA Cervical (10/14/2017 9:54 AM CDT) HPV Source SurePath 10/14/2017 9:41 AM CDT [facility] HPV 16 DNA Negative NEG^Nega tive 10/18/2017 10:59 AM CDT [facility] HPV 18 DNA Negative NEG^Nega tive 10/18/2017 10:59 AM CDT [facility] Other HR HPV Negative NEG^Nega tive 10/18/2017 10:59 AM CDT [facility] Final Diagnosis This patient's sample is negative for HPV DNA. 10/18/2017 10:59 AM CDT [facility] Comment: This test was developed and its performance characteristics determined by the [facility], Molecular Diagnostics Laboratory. It has not been cleared or approved by the FDA. The laboratory is regulated under CLIA as qualified to perform high-complexity testing. This test is used for clinical purposes. It should not be regarded as investigational or for research. (Note) METHODOLOGY: ??The Gregory sandra 4800 system uses automated extraction, simultaneous amplification of HPV (L1 region) and beta-globin, ?? followed by ??real time detection of fluorescent labeled HPV and beta globin using specific oligonucleotide probes . The test specifically identifies types HPV 16 DNA and HPV 18 DNA while concurrently detecting the rest of the high risk types (31, 33, 35, 39, 45, 51, 52, 56, 58, 59, 66 or 68). COMMENTS: ??This test is not intended for use as a screening device for women under age 30 with normal cervical cytology. ??Results should be correlated with cytologic and histologic findings. Close clinical followup is recommended. Specimen Description Cervical Cells 10/17/2017 9:12 AM CDT [facility] Comment:[id number] Cervical Cells 10/14/2017 9: 54 AM CDT 10/14/2017 10:07 AM CDT us Noreen Buitrago PA-C LAB - BLOOD ORDERABLES Fi nal Result [facility] [address] [place] [address] [address] * Pap imaged thin layer screen with HPV - recommended age 30 - 65 years (select HPV order below) (10/14/2017 9:40 AM CDT) PAP SAL Doherty Report Patient Name: SKYLAR AKERS MR#: [id number] Specimen #: [id number] Collected: 10/14/2017 Received: 10/14/2017 Reported: 10/16/2017 10:22 Ordering Phy(s): NOREEN BUITRAGO For improved result formatting, select 'View Enhanced Report Format' under Linked Documents section. SPECIMEN/STAIN PROCESS: Pap imaged thin layer prep screening (Surepath, FocalPoint with guided screening) ? Pap-Cyto x 1, HPV ordered x 1 SOURCE: Cervical, endocervical Pap imaged thin layer prep screening (Surepath, FocalPoint with guided screening) SPECIMEN ADEQUACY: Satisfactory for evaluation. -Transformation zone component present. CYTOLOGIC INTERPRETATION: Negative for intraepithelial lesion or malignancy Electronically signed out by: RONAK Garcia (ASCP) Processed and screened at [facility], [facility] CLINICAL HISTORY: Currently not having periods, Intra-Uterine Device, Previous normal pap Date of Last Pap: 10/09/2016, Papanicolaou Test Limitations: ??Cervical cytology is a screening test with limited sensitivity; regular screening is critical for cancer prevention; Pap tests are primarily effective for the diagnosis/preventi on of squamous cell carcinoma, not adenocarcinomas or other cancers. TESTING LAB LOCATION: [facility] [address] [place], [place] ??[address] COLLECTION SITE: Client: ??[facility] Location: [facility] (R) [facility] Cytologic material (specimen) 10/14/2017 9:40 AM CDT 10/14/2017 3:39 PM CDT Noreen Buitrago PA-C LAB - OPTIME CLINICAL SPE CIMEN Final Result [facility] from Last 3 Months or Most Recently Relevant to Health Maintenance [facility] [employer] Advance Directives For more information, please contact: [phone] * Full Code (Latest Code Status on File) Date Activated Date Inactivated Comments 11/14/2021 3:00 AM 11/17/2021 3:53 PM All basic and advanced life-sustaining interventions are performed as appropriate Question Answer Comments Code status determined by: Discussion with patie nt/ legal decision maker Care Teams Tiedown Operator Relationship Specialty Start Date End Date Shannan Malcolm CNP [address] [place] [address] PCP - General Nurse Practitioner - Family 07/09/22 Shannan Malcolm CNP [address] [place] [address] Assigned PCP 04/07/22 Mattie Tellez APRN CNP [address] [place] [address] Assigned Behavioral Health Provider 09/22/22
--- OUTSIDE RECORDS SUMMARY | 2024-04-04 18:42 | XMS_ITS | Encounter Summary ---
Author Organization Divide Address [facility] [place] [address] Care Team Providers Care Freight Unloader Name Role Phone Shannan Malcolm CNP Unavailable [phone] Shannan Malcolm CNP Primary Care Provider [phone] Mattie Tellez APRN OIL FIELD EQUIPMENT MECHANIC Unavailable [phone] Encounter Details Date Type Department Care Team (Late st Contact Info) Description 03/17/2024 Orders Only [facility] [address] [place] [address] Mattie Tellez APRN OIL FIELD EQUIPMENT MECHANIC [address] [facility] [place], [place] [address] Generalized anxiety disorder with panic attacks (Primary Dx) Social History Tobacco Use Types Packs/Day Years [...] on file 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 Gender Identity Female 02/08/2022 7:17 AM CDT Sexual Orientation Choose not to disclose 2021 7:17 AM CDT documented as of this encounter Plan of Treatment Upcoming Encounters Date Type Department Care Team (Late st Contact Info) Description 04/06/2024 7:30 AM CDT Virtual Visit [facility] [address] [place] [address] Javad Lexi, [facility] [address] [place], [place] [phone] 04/06/2024 8:00 AM CDT Virtual Visit [facility] [address] [place] [phone] Mattie Tellez APRN OIL FIELD EQUIPMENT MECHANIC [address] [place], [place] [phone] documented as of this encounter Visit Diagnoses Diagnosis Generalized anxiety disorder with panic attacks- Primary documented in this encounter Additional Health Concerns Assessment Noted Time PHQ-9 Depression Total Score: 9 03/02/20 24 8:53 AM CDT documented as of this encounter Care Teams Freight Unloader Relationship Specialty Start Date End Date Shannan Malcolm CNP [address] [place] [address] PCP - General Nurse Practitioner - Family 07/09/22 Shannan Malcolm CNP [address] [place] [address] Assigned PCP 04/07/22 Mattie Tellez APRN OIL FIELD EQUIPMENT MECHANIC [address] [place], [place] [phone] Assigned Behavioral Health Provider 09/22/22 documented as of this encounter
--- OUTSIDE RECORDS SUMMARY | 2024-04-04 18:42 | XMS_ITS | Encounter Summary ---
Author Organization [facility] Address [address] [place] [address] Care Team Providers Care Supervisor Post Wave Name Role Phone Shannan Malcolm CNP Unavailable [phone] Shannan Malcolm CNP Primary Care Provider [phone] Mattie Tellez APRN [employer] MEMBER Unavailable [phone] Reason for Visit * Reason Onset Date Comments Refill Request 02/24/2024 Encounter Details Date Type Department Care Team (Late st Contact Info) Description 02/24/2024 MyC Refill [facility] [address] [place] [address] Mattie Tellez, [place] [employer]AC[employer] MEMBER [address] [place] [address] Refill Request Social History Tobacco [...] on file 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 Yolanda Ahn RN on 02/24/2024 at 11:18 AM documented in this encounter Plan of Treatment Upcoming Encounters Date Type Department Care Team (Late st Contact Info) Description 04/06/2024 7:30 AM CDT Virtual Visit [facility] [address] [place] [address] [address] [place] [address] Lexi Farnsworth, COMPUTER APPLICATIONS INSTRUCTOR [address] [place], [place] [id number] 04/06/2024 8:00 AM CDT Virtual Visit [facility] [address] [place] [id number] Mattie Tellez APRN [employer]BER [address] [place], [place] [address] documented as of this encounter Visit Diagnoses Diagnosis PTSD (post-traumatic stress disorder) Posttraumatic stress disorder Generalized anxiety disorder with panic attacks MDD (major depressive disorder), recurrent episode, moderate (H) Major depressive disorder, recurrent episode, moderate documented in this encounter Additional Health Concerns Assessment Noted Time PHQ-9 Depression Total Score: 6 01/01/20 24 10:48 AM CDT documented as of this encounter Care Teams Supervisor Post Wave Relationship Specialty Start Date End Date Shannan Malcolm CNP [address] [place] [address] PCP - General Nurse Practitioner - Family 07/09/22 Shannan Malcolm CNP [address] [place], [place] [id number] Assigned PCP 04/07/22 Mattie Tellez APRN CNP [address] [place], [place] [phone] Assigned Behavioral Health Provider 09/22/22 documented as of this encounter
--- OUTSIDE RECORDS SUMMARY | 2024-04-04 18:42 | XMS_ITS | Encounter Summary ---
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 interview. Not formally assessed. No amnesia. Attention Span and Concentration: grossly intact to interview. Required mild redirection , repeatedquestions Fund of Knowledge: appropriate Gait and Station: unremarkable via video Suicide Risk Assessment: Today Skylar Santillan reports no suicidal ideation. There are notable risk factors for self-harm, including anxiety and family history. However, risk is mitigated by commitment to family, sobriety, absence of past attempts, history of seeking help when needed, future oriented, no access to firearms or weapons, and denies suicidal intent or plan. Therefore, based on all available evidence including the factors cited above, Skylar Santillan does not appear to be at imminent risk for self-harm, does not meet criteria for a 72-hr hold, and therefore remains appropriate for ongoing outpatient level of care. A thorough assessment of risk factors related to suicide and self-harm have been reviewed and are noted above. The patient convincingly denies suicidality on several occasions. Localcommunity safety resources printed and reviewed for patient to use if needed. There was no deceit detected, and the patient presented in a manner that was believable. Recommended that patient call 911 or go to the local ED should there be a change in any of these risk factors. 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 Major Depressive Disorder, Recurrent Episode, Mild 300.02 (F41.1) Generalized Anxiety Disorder with panic attacks F10.91 Alcohol use disorder in remission F43.10 PTSD Medical comorbidities include: Patient Active Problem List Diagnosis Date Noted CARDIOVASCULAR SCREENING; LDL GOAL LESS THAN 160 04/09/2010 Priority: High Mild intermittent asthma 09/04/2005 Priority: High exercise related MDD (major depressive disorder), recurrent episode, mild (H24) 01/27/2024 Priority: Medium PTSD (post-traumatic stress disorder) 09/27/2022 Priority: Medium Attention deficit hyperactivity disorder (ADHD), predominantly inattentive type 09/27/2022 Priority: Medium Generalized anxiety disorder with panic attacks 05/28/2022 Priority: Medium Alcohol use disorder in remission 11/13/2021 Priority: Medium Alcohol withdrawal seizure with complication (H) 11/13/2021 Priority: Medium Elevated blood pressure reading without diagnosis of hypertension 09/03/2017 Priority: Medium Controlled substance agreement signed 01/20/2014 Priority: Medium Patient is followed by Azra Shine NP, ADULT CARE PROVIDER for ongoing prescription of a controlled medicine. Medicine: Klonopin 0.5mg Maximum use per month: 3o tablets/month. Expected duration: undetermined. Medication agreement on file: YES - signed: 11/2013. Clinic visit recommended: every 4 months IUD (intrauterine device) in place 03/20/2012 Priority: Medium Placed 12/2011 ASCUS with positive high risk HPV cervical 02/26/2011 Priority: Medium 02/26/11: ASCUS, + HPV 59. Plan colp. [...] 3 years per provider. Normal delivery 01/05/2011 Priority: Medium Seizure disorder (H) 10/26/2009 Priority: Medium POD (perioral dermatitis) 12/17/2008 Priority: Medium Allergic state Priority: Medium Problem list name updated by automated process. Provider to review Psychosocial & Contextual Factors: Parent/Child Relationship Difficulties and Legal Difficulties DIFFERENTIAL DIAGNOSIS: R/O bipolar affect disorder, personality disorder Medical comorbidities impacting or contributing to clinical picture: ?seizure disorder Known issue that I take into account for their medical decisions, no current exacerbations or new concerns Impression: Skylar Santillan is a 38 year old or White, female who presents for return visit with Collaborative Care Psychiatry Service ([facility]) for medication management. At last appointment 1 month ago , discontinued mirtazapine due to side effects, and started clonidine 0.1 mg at bedtime, with 0.1 during day for anxiety, and continued lorazepam 0.5 mg up to twice a day, fluoxetine 60 mg, focalin XR 15 mg / IR 5 mg in afternoon . Patient reports mild improvement in anxiety, some sleep with clonidine. Is struggling with some side effects , including drowsiness. Overall thinks improvement is worth continuing at this time. Her anxiety does remain high and she does again admit to using more lorazepam at least a few days a week as she has beenout since 02/23/24 (3 days early). She is aware of controlled substance policy and need to take medication as prescribed. She does note higher anxiety over the last 2 days, denies other symptoms of withdrawal. She feels the benzodiazapine is a double edged sword as it is very helpful for her anxiety, but when she is out of it her anxiety is very high and does not like having to rely on a substance. She maintains sobriety from alcohol. Depression is low and stable. Denies any SI/SIB/HI, psychosis, seamus. Has not been able to find therapist, is also considering DBT. We will plan to continue clonidine for now and monitor for side effects before any increase (could go up at bedtime for sleep support, transition to ER if better tolerated). Will send small amount of hydroxyzine to retrial for additional insomnia (versus current mirtazapine as needed). Continue all other medications. Follow-up with this provider + Behavioral Health Embosser Apprentice in 1 month. Additionally sending referral for DBT. Patient agreeable to plan. Medication side effects and alternatives were reviewed. Health promotion activities recommended andreviewed today. All questions addressed. Education and counseling completed regarding risks and benefits of medications and psychotherapy options. Recommend therapy for additional support. Treatment Plan: START hydroxyzine 10 mg (1/2-1 [...] primary care provider. Referral placed for DBT. [facility] will call you to coordinate your care as prescribed by your provider. If you don't hear from a pharmaceutical specialty representative within 2 business days, please call [phone]. Safety plan reviewed. To the Emergency Department as needed or call after hours crisis line at [phone] or [phone]. [place] Crisis Text Line. Text [place] to 235802 or Suicide LifeLine Chat: suicidepreventionSpaceCurveline.org/chat Schedule an appointment with co and Behavioral Health Embosser Apprentice in 4 weeks or sooner as needed. Call [facility] at [phone] to schedule. Follow up with primary care provider as planned or for acute medical concerns. Call the psychiatric nurse line with medication questions or concerns at [phone]. BelieversFundhart may be used to communicate with your provider, but this is not intended to be used for emergencies. Patient Education: Medication side effects and alternatives reviewed. Health promotion activities recommended and reviewed today. All questions addressed. Education and counseling completed regarding risks and benefitsof medications and psychotherapy options. Consent provided by patient/guardian Call the psychiatric nurse line with medication questions or concerns at [phone]. BelieversFundhart may be used to communicate with your provider, but this is not intended to be used for emergencies. STIMULANT THERAPY: Side effects discussed including but not limited to cardiac (including HTN, tachycardia, sudden ), motor/tic, appetite/growth, mood lability and sleep disruption. This is a controlled substance with risk for abuse, need to keep in a safe keep place and cannot replace lost scripts BENZODIAZEPINE: discussion on how benzos work and the need to use them short term due to potential of anxiety getting. This is a controlled substance with risk for abuse, need to keep in a safe keep place and cannot replace lost scripts. Medlineilluminate Solutions.gov is information for patients. It is run by the National Library of Medicine and it contains information about all disorders, diseases and all medications. I have reviewed the class of benzodiazepine. Discussed importance of treating generalized anxiety as part of treatment plan as well as the risk of long-term benzodiazepine treatment. Recommendation for only occasional intermittent use when symptoms surge and sudden relief is needed. I have cautioned on risk for overuse and/or addiction, change in alertness, or ability to perform usual task. I have cautioned on use with other controlled substances / and/or alcohol. The patient is advised that I will not prescribe residential/high dose benzodiazepine due to risk in addition to any UDS positive for alcohol, illegal drugs or other substances that are not prescribed by me. Patient has been educated that benzodiazepines causes both psychological and physiologic tolerance, which can lead to issuesof abuse and addiction. I have cautioned patient that benzodiazepines have significant side effectssuch as sedation, amnesia, memory and/or psychomotor impairment, and cognition dulling; which can interfere with the patient's daily functioning. Patient consents and verbalized understanding. Common side effects of stimulant were discussed, including insomnia, stomach upset, jitters and other activation issues, appetite loss, weight loss, psychosis especially from abuse, worsening of anxiety, precipitation of seamus, irreversible tics. Discussed the risk of abuse and dependence, and BBW for cardiovascular risks, increased blood pressure. Community Resources: National Suicide Prevention Lifeline: 775.161.9425 (TTY: 986.204.5036). Call anytime for help. (www.suicidepreventionlifeline.org) National [place] on Mental Illness (www.jason.org): 186.266.2272 or 152-603-9915. Mental Health Association (www.mentalhealth.org): 672.844.1808 or 392-708-8920. [place] Crisis Text Line: Text [place] to 801569 Suicide LifeLine Chat: suicidepreAlimera Sciencesline.org/chat Administrative Billing: Level of Medical Decision Making: - At least 1 chronic problem that is not stable - Engaged in prescription drug management during visit (discussed any medication benefits, side effects, alternatives, etc.) Patient Status: [facility] MD/DO/ADULT CARE PROVIDER/PA providers offer care a specialty service for Primary Care Providers in the [facility] that seek to optimize psychotropic medications for unstable patients. Once medications havebeen optimized, our providers discharge the patient back to the referring Primary Care Provider forongoing medication management. This type of system allows our providers to serve a high volume of patients. Patient will continue to be seen for ongoing consultation and stabilization. Signed: Mattie Tellez, MSN, STATE ATTORNEY, PMHNP- Collaborative Care Psychiatry Service ([facility]) [facility] Chart documentation done in part with Echolocation Voice Recognition software. Although reviewed after completion, some word and grammatical errors may remain. documented in this encounter Nursing Notes * ALBANRICARDOGLORIA - 02/24/2024 10:30 AM CDT Is the patient currently in the state of [place]? YES Current patient location: [address] [place] [address] Visit mode:VIDEO If the visit is dropped, the patient can be reconnected by: VIDEO VISIT: Text to cell phone: Telephone Information: Will anyone else be joining the visit? No (If patient encounters technical issues they should call [phone]) How would you like to obtain your AVS? MyChart Are changes needed to the allergy or medication list? No Are refills needed on medications prescribed by this physician? YES Rooming Documentation: Questionnaire(s) completed. Reason for visit: RECHECK JARROD Setward documented in this encounter Plan of Treatment Upcoming Encounters Date Type Department Care Team (Late st Contact Info) Description 04/06/2024 7:30 AM CDT Virtual Visit [facility] [address] [place] [address] [address] [place] [address] Lexi Farnsworth, [facility] [address] [facility] [address] [place] [address] 04/06/2024 8:00 AM CDT Virtual Visit [facility] & [facility] [address] [facility] [address] [place] [phone] Mattie Tellez APRN EQUIPMENT VALIDATION SPECIALIST [address] [place], [place] [address] Scheduled Referrals Name Type Priority Associated Diagnoses Orde r Schedule Adult Mental Health Data Analyst Referral Referral Routine: Next available opening Generalized anxiety disorder with panic attacks PTSD (post-traumatic stress disorder) Attention deficit hyperactivity disorder (ADHD), predominantly inattentive type Alcohol use disorder in remission Expected: 02/24/2024 (Approximate), Expires: 02/23/2025 documented as of this encounter Visit Diagnoses Diagnosis Generalized anxiety disorder with panic attacks- Primary PTSD (post-traumatic stress disorder) Posttraumatic stress disorder Attention deficit hyperactivity disorder (ADHD), predominantly inattentive type Alcohol use disorder in remission MDD (major depressive disorder), recurrent episode, mild (H) Major depressive disorder, recurrent episode, mild documented in this encounter Additional Health Concerns Assessment Noted Time PHQ-9 Depression Total Score: 6 01/01/20 24 10:48 AM CDT documented as of this encounter Care Teams Press Tender Star Signal Relationship Specialty Start Date End Date Shannan Malcolm CNP [address] [place] [id number] PCP - General Nurse Practitioner - Family 07/09/22 Shannan Malcolm CNP [address] [place] [address] [id number] Assigned PCP 04/07/22 Mattie Tellez APRN CNP [address] [place] [id number] Assigned Behavioral Health Provider 09/22/22 documented as of this encounter
--- OUTSIDE RECORDS SUMMARY | 2024-04-04 18:42 | XMS_ITS | Encounter Summary ---
Author Organization [facility] Address [address] [place] [address] Care Team Providers Care Mailroom Associate Name Role Phone Shannan Malcolm CNP Unavailable [phone] Shannan Malcolm CNP Primary Care Provider [phone] Mattie Tellez APRN SHIPPING COORDINATOR Unavailable [phone] Reason for Visit * Reason Onset Date Comments Refill Request 03/09/2024 Focalin 5 mg Encounter Details Date Type Department Care Team (Late st Contact Info) Description 03/09/2024 MyC Refill [facility] [address] [place] [address] [address] [place] [address] Mattie Tellez APRN SHIPPING COORDINATOR [address] [place] [address] Refill Request (Focalin 5 mg) Social History Tobacco Use Types Packs/Day Years [...] on file Legal Sex Female 3:13 AM EVENT SERVICES MANAGER Gender Identity Female 02/08/2022 7:17 AM CDT Sexual Orientation Choose not to disclose 2021 7:17 AM CDT documented as of this encounter Miscellaneous Notes * Telephone Encounter - Yolanda Ahn RN - 03/09/2024 11:36 AM CDT Date of Last Office Visit: 02/24/24 Date of Next Office Visit: 04/06/24 No shows since last visit: No More than one patient-initiated cancellation (with reschedule) since last seen in clinic? No []Medication refilled per ???Medication Refill in Hand Wrapper Operator?? policy. [x]Medication unable to be refilled [...] by TERRY/LEVI []Other: Medication(s) requested: - dexmethylphenidate (FOCALIN) 5 MG tablet Date last ordered: 02/07/24 Qty: 30 Refills: 0 Appropriate for refill? Yes Any Controlled Substance(s)? Yes [place] E[employer]ICIAN checked? Yes was last sold on 02/07/24 for quantity of 30. Other controlled substance on [place] AIR[place] ELECTRICIAN?: Yes If yes, are any new medications? No Requested medication(s) verified as identical to current order? Yes Any lapse in adherence to medication(s) greater than 5 days? No Additional action taken? cued up medication/order(s). Last visit treatment plan: START hydroxyzine 10 mg (1/2-1 tablet) up [...] day in the afternoon. No script needed. Follow-up with this provider + Behavioral Health Medication Reconciliation Technician in 1 month. Additionally sending referral for DBT. Patient agreeable to plan. Any medication(s) require lab monitoring? No documented in this encounter Plan of Treatment Upcoming Encounters Date Type Department Care Team (Late st Contact Info) Description 04/06/2024 7:30 AM CDT Virtual Visit [facility] [address] [place] [address] [address] [place] [address] Lexi Farnsworth, [facility] [address] [facility] [address] [place], [place] [phone] 04/06/2024 8:00 AM CDT Virtual Visit [facility] [address] [place] [phone] Mattie Tellez APRN [facility] [address] [place], [place] [phone] documented as of this encounter Visit Diagnoses Diagnosis Attention deficit hyperactivity disorder (ADHD), predominantly inattentive type documented in this encounter Additional Health Concerns Assessment Noted Time PHQ-9 Depression Total Score: 9 03/02/20 24 8:53 AM CDT documented as of this encounter Care Teams Mailroom Associate Relationship Specialty Start Date End Date Shannan Malcolm CNP [address] [place] [id number] PCP - General Nurse Practitioner - Family 07/09/22 Shannan Malcolm CNP [address] [place] [address] Assigned PCP 04/07/22 Mattie Tellez APRN SHIPPING COORDINATOR [address] [place] [address] Assigned Behavioral Health Provider 09/22/22 documented as of this encounter
--- OUTSIDE RECORDS SUMMARY | 2024-04-04 18:42 | XMS_ITS | Clinical Summary ---
Author Organization [facility] Address [address] [place] [address] Care Team Providers Care Solder Technician Name Role Phone Shannan Malcolm CNP Unavailable [phone] Shannan Malcolm CNP Primary Care Provider [phone] Mattie Tellez APRN VETERINARY TECHNOLOGIST Unavailable [phone] Allergies Active Allergy Reactions Criticality Noted Date Comments Penicillins 09/04/2005 Rash Medications * This document contains information received from the source organization and may not represent a complete record from that organization. levonorgestrel (MIRENA) 20 MCG/24HR IUDIndications:pl aced 2011 1 each by Intrauterine route once Active [...] Overview (01/20/2014): Patient is followed by Azra Shine, REYNALDO, ENGRAVER JEWELRY for ongoing prescription of a controlled medicine. [...] Moderate - Neena Deactivated 12/17/2008 Anxiety 10/18/2023 Encounters Date Type Department Care Team Description 03/29/2024 Ghada Aggarwal [facility] Health & [facility] [address] [place] [phone] Mattie Tellez APRN VETERINARY TECHNOLOGIST Refill Request 03/29/2024 Ghada Aggarwal [address] [place] [phone] Shannan Malcolm CNP Refill Request 03/25/2024 MyC Medical Advice [facility] [address] [place] [phone] Mattie Tellez APRN CNP 03/17/[address] [facility] [address] [place] [phone] Mattie Tellez APRN CNP Generalized anxiety disorder with panic attacks (Primary Dx) 03/16/[address] [facility] [address] [place] [phone] Mattie Tellez APRN VETERINARY TECHNOLOGIST Refill Request 03/14/[address] [facility] [address] [place] [phone] Mattie Tellez, ROSEMARIE VETERINARY TECHNOLOGIST Medication Request (Change anti-anxiety me... 03/09/2024 MyC Refill [facility] [address] [place] [phone] Mattie Tellez APRN VETERINARY TECHNOLOGIST Refill Request (Focalin 5 mg) 03/02/2024 1:00 PM CDT Virtual Visit [address] [place] [phone] Shannan Malcolm, GROVER Infection due to 2019 novel coronavirus (Primary Dx); Mild intermittent asthma without complication 03/02/[address] [place] [phone] Shannan Malcolm CNP 02/26/2024 MyC Medical Advice [facility] [address] [phone] Angie Hernández 02/24/2024 10:30 AM CDT Virtual Visit [facility] [address] [place] [address] [address] [place] [phone] Mattie Tellez APRN CNP Generalized anxiety disorder with panic attacks (Primary Dx); PTSD (post-traumatic stress disorder); Attention deficit hyperactivity disorder (ADHD), predominantly inattentive type; Alcohol use disorder in remission; MDD (major depressive disorder), recurrent episode, mild (H) 02/24/[address] [phone] Shannan Malcolm, VETERINARY TECHNOLOGIST Refill Request (Prozac 40) 02/24/2024 MyC Refill [facility] [address] [phone] Mattie Tellez APRN VETERINARY TECHNOLOGIST Refill Request 02/17/2024 MyC Refill [facility] [address] [place] [phone] Mattie Tellez APRN VETERINARY TECHNOLOGIST Refill Request (dexmethylphenidate (FOCALI... 02/17/2024 MyC Refill [facility] [address] [phone] Mattie Tellez APRN VETERINARY TECHNOLOGIST Refill Request (dexmethylphenidate (FOCALI... 01/27/2024 8:00 AM CDT Virtual Visit [facility] [address] [place] [phone] Mattie Tellez APRN CNP Generalized anxiety disorder with panic attacks (Primary Dx); PTSD (post-traumatic stress disorder); Alcohol use disorder in remission; MDD (major depressive disorder), recurrent episode, mild (H); Attention deficit hyperactivity disorder (ADHD), predominantly inattentive type 01/23/2024 MyC Refill [facility] [address] [phone] Mattie Tellez APRN CNP Refill Request (lorazepam (ATIVAN) 0.5 MG ... 01/17/2024 MyC Medical Advice [facility] [address] [place] [phone] Mattie Tellez APRN CNP 01/10/[address] [facility] [address] [place] [phone] Mattie Tellez APRN CNP CATHY (generalized anxiety disorder) 01/10/2024 MyC Medical Advice [facility] [address] [place] [phone] Mattie Tellez APRN CNP Medication not working (Diazepam ) from Last 3 Months Immunizations Name Administration Dates Next Due Flu, Unspecified 08/01/2023 Influenza (IIV3) PF 03/20/2012,04/09/2011,2009 Influenza Vaccine >6 months,quad, PF 07/22/2023 MMR 02/01/1999 Pneumococcal 23 valent 07/16/2009 TD,PF 7+ (Tenivac) 01/08/1998 TDAP Vaccine (Adacel) 05/31/2017 TDAP Vaccine (Boostrix) 06/29/2011 Family History Medical History Relation Comments Obesity Brother Heart Disease Father heart attack - p assed from Unknown/Adopted Father Depression Mother controlled with meds Obesity Mother Gastric Bypass a t 46 Prostate Cancer Paternal Grandfather has moved t o bones Depression Sister controlled with meds Family History Negative No family hx of Relation Status Comments Brother Alive Daughter Alive Father Maternal Grandfather Alive Maternal Grandmother Alive Mother Alive Paternal Grandfather Alive Paternal Grandmother Alive Sister Alive Social History Tobacco Use Types Packs/Day Years [...] on file Legal Sex Female 3:13 AM EDITOR MAP Gender Identity Female 02/08/2022 7:17 AM CDT [...] Description 04/06/2024 7:30 AM CDT Virtual Visit [facility] Mental Health & Addiction [facility] [address] [address] [place] [address] Lexi Farnsworth, [facility] [address] [place], [place] [phone] 04/06/2024 8:00 AM CDT Virtual Visit [facility] Mental Health & Addiction [facility] [address] [address] [place] [phone] Mattie Tellez, MANAGER OF REGULATORY AFFAIRS VETERINARY TECHNOLOGIST [address] [place], [place] [phone] Health Maintenance Due Date Last Done Comments ADVANCE CARE PLANNING 1986 HEPATITIS C SCREENING 2004 HEPATITIS B IMMUNIZATION (1 of 3 - 19+ 3-dose series) 2005 Pneumococcal Vaccine: Pediatrics (0 to 5 Years) and At-Risk Patients (6 to 64 Years) (2 of 2 - PCV) 07/16/2010 07/16/2009 ASTHMA ACTION PLAN 10/09/2017 10/09/2016, 0 10/09/2016, 10/09/2016, Additional history exists MICROALBUMIN 10/14/2018 10/14/2017 BMP 02/16/2023 02/16/2022, 06/0 02/2022, 11/15/2021, Additional history exists ANNUAL REVIEW OF HM ORDERS 06/12/2023 06/12/2022 COVID-19 Vaccine ( season) 2024 07/22/2023, 09/25/2021, 09/04/2021 INFLUENZA VACCINE (#1) 2024 , 07/22/2023, 10/01/2017 (Declined), Additional history exists ASTHMA CONTROL TEST 07/03/2024 01/01/2024, 09/21/2022, 07/16/2022, Additional history exists YEARLY PREVENTIVE VISIT 07/22/2024 07/22/19, 10/14/2017, 10/09/2016, Additional history exists PHQ-9 08/30/2024 03/02/2024, 07/2 09/2023, 12/10/2022, Additional history exists GLUCOSE 02/16/2025 02/16/2022, 06/0 02/2022, 11/15/2021, Additional history exists HPV TEST 07/22/2026 07/22/2023, 05/0 12/2017, 10/09/2016 PAP 07/22/2026 07/22/2023, 05/0 12/2017, 10/09/2016, Additional history exists DTAP/TDAP/TD IMMUNIZATION (4 - Td or Tdap) 05/31/2027 05/31/2017, 06/29/2011, 01/08/1998 RSV VACCINE (1 - 1-dose 75+ series) 2061 DEPRESSION ACTION PLAN Completed 7, 10/09/2016, 11/29/2014, Additional history exists HIV SCREENING Completed 10/14/2017 HPV IMMUNIZATION Aged Out No longer e ligible based on patient's age to complete this topic MENINGITIS IMMUNIZATION Aged Out No l onger eligible based on patient's age to complete this topic RSV MONOCLONAL ANTIBODY Aged Out No l onger eligible based on patient's age to complete this topic Procedures Procedure Name Priority Date/Time Associated Diagnosis [...] includes age and gender (Octavio et al., NEJ, DOI: 10.1056/[id number]) Blood BLOOD SPECIMEN / Unknown Venipuncture / Unknown 02/16/2022 10:35 AM CDT 02/16/2022 10:35 AM CDT us Shannan Malcolm CNP LAB - BLOOD ORDERABLES Fi nal Result OX LABORATORY [facility] [address] Lab (no room number, 1st floor of clinic) [place] [address], [facility] [phone] * HIV Antigen Antibody Combo (10/14/2017 10:05 AM CDT) HIV Antigen Antibody Combo Nonreactive NR^Nonrea ctive 10/15/2017 11:16 AM CDT [facility] Comment:HIV-1 p24 Ag & HIV-1 /HIV-2 Ab Not Detected Blood specimen (specimen) 10/14/2017 10:05 AM CDT 10/14/2017 10:06 AM CDT us Noreen Buitrago PA-C LAB - BLOOD ORDERABLES Fi nal Result Performing Organization Address City/[facility]/ZIP Co de Phone Number [facility] [address] [place] [address] * Albumin Random Urine Quantitative with Creat Ratio (10/14/2017 10:04 AM CDT) Creatinine Urine 34 mg/dL 10/14/2017 6:08 PM CDT [facility] Albumin Urine mg/L <5 mg/L 10/14/2017 6:13 PM CDT [facility] Albumin Urine mg/g Cr Unable to calculate due to low value 0 - 25 mg/g Cr 10/14/2017 6:13 PM CDT [facility] Urine specimen (specimen) 10/14/2017 10:04 AM CDT 10/14/2017 10:05 AM CDT us Noreen Buitrago PA-C LAB - URINE ORDERABLES Fi nal Result Performing Organization Address City/[facility]/ZIP Co de Phone Number [facility] [address] [phone] * HPV High Risk Types DNA Cervical (10/14/2017 9:54 AM CDT) HPV Source [facility] 10/14/2017 9:41 AM CDT [facility] HPV 16 DNA Negative NEG^Nega tive 10/18/2017 10:59 AM CDT [facility] HPV 18 DNA Negative NEG^Nega tive 10/18/2017 10:59 AM CDT [facility] Other HR HPV Negative NEG^Nega tive 10/18/2017 10:59 AM CDT [facility] Final Diagnosis This patient's sample is negative for HPV DNA. 10/18/2017 10:59 AM CDT [facility] Comment: This test was developed and its performance characteristics determined by the [facility], Molecular Diagnostics Laboratory. It has not been [...] Description Cervical Cells 10/17/2017 9:12 AM CDT [facility] Comment:[id number] Cervical Cells 10/14/2017 9: 54 AM CDT 10/14/2017 10:07 AM CDT Noreen Buitrago PA-C LAB - BLOOD ORDERABLES Fi nal Result [id number] [place] [address] * Pap imaged thin layer screen with HPV - recommended age 30 - 65 years (select HPV order below) (10/14/2017 9:40 AM CDT) PAP SAL Doherty Report Patient Name: SKYLAR AKERS MR#: [id number] Specimen #: [id number] Collected: 10/14/2017 Received: 10/14/2017 Reported: 10/16/2017 10:22 [...] RONAK Garcia (ASCP) Processed and screened at [facility], [facility] CLINICAL HISTORY: Currently not having periods, Intra-Uterine Device, Previous normal pap Date of Last Pap: 10/09/2016, Papanicolaou Test Limitations: ??Cervical cytology is a screening test with limited sensitivity; regular screening is critical for cancer prevention; Pap tests are primarily effective for the diagnosis/preventi on of squamous cell carcinoma, not adenocarcinomas or other cancers. TESTING LAB LOCATION: [address] ??[phone] COLLECTION SITE: Client: ??[facility] Location: [facility] (R) COPATH Cytologic material (specimen) 10/14/2017 9:40 AM CDT 10/14/2017 3:39 PM CDT Noreen Buitrago PA-C LAB - OPTIME CLINICAL SPE GENO Final Result COPATH from Last 3 Months or Most Recently Relevant to Health Maintenance Insurance [employer] Advance Directives For more information, please contact: [phone] * Full Code (Latest Code Status on File) Date Activated Date Inactivated Comments 11/14/2021 3:00 AM 11/17/2021 3:53 PM All basic and advanced life-sustaining interventions are performed as appropriate Question Answer Comments Code status determined by: Discussion with patie nt/ legal decision maker Care Teams Solder Technician Relationship Specialty Start Date End Date Shannan Malcolm CNP [address] [place] [address] PCP - General Nurse Practitioner - Family 07/09/22 Shannan Malcolm CNP [address] [place] [address] Assigned PCP 04/07/22 Mattie Tellez APRN VETERINARY TECHNOLOGIST [address] [place] [address] Assigned Behavioral Health Provider 09/22/22
--- OUTSIDE RECORDS SUMMARY | 2024-04-04 18:42 | XMS_ITS | Encounter Summary ---
Author Organization [facility] Address [address] [place] [address] Care Team Providers Care Underground Truck Operator Name Role Phone Shannan Malcolm BREAKFAST MANAGER Unavailable [phone] Shannan Malcolm CNP Primary Care Provider Mattie Tellez APRN BREAKFAST MANAGER Unavailable [phone] Reason for Visit * Reason Comments Covid Concern Encounter Details Date Type Department Care Team (Late st Contact Info) Description 03/02/2024 1:00 PM CDT Virtual Visit [address] [phone] Shannan Malcolm, BREAKFAST MANAGER [address] [place] [id number] Infection due to 2019 novel coronavirus (Primary Dx); Mild intermittent asthma without complication Social History Tobacco Use Types Packs/Day Years [...] on file Legal Sex Female 3:13 AM MARINE SERVICE MANAGER Gender Identity Female 02/08/2022 7:17 AM CDT Sexual Orientation Choose not to disclose 2021 7:17 AM CDT documented as of this encounter Progress Notes * Shannan Malcolm, BREAKFAST MANAGER - 03/02/2024 1:00 PM CDT Melisa is a 38 year old who is being evaluated via a billable video visit. How would you like to obtain your AVS? MyChart If the video visit is dropped, the invitation should be resent by: Text to cell phone: [phone] Will anyone else be joining your video visit? No Mom and daughter would like to do together with a link texted to mom's phone. Assessment & Plan Infection due to 2019 novel coronavirus Mild intermittent asthma without complication - albuterol (PROVENTIL) (2.5 MG/3ML) 0.083% neb solution Dispense: 90 mL; Refill: 0 BMI Estimated body mass index is 31.28 kg/m?? as calculated from the following: Height as of 01/27/24: 1.575 m (5' 2). Weight as of 02/24/24: 77.6 kg (171 lb). Subjective Melisa is a 38 year old, presenting for the following health issues: Covid Concern 03/02/2024 10:24 AM Additional Questions Roomed by Lorraine Video Start Time: 11 am History of Present Illness Reason for visit: Covid Symptom onset: 1-3 days ago Symptoms include: Running nose servere headache extreme triedness sore throat Symptom intensity: Severe Symptom progression: Worsening Had these symptoms before: Yes Has tried/received treatment for these symptoms: No What makes it worse: Standing What makes it better: No She is taking medications regularly. Since talking with nurse she has taken O2 and it was 99% today. She is doing pretty good but is having random chest pain on left side. It lasts about 30-60 seconds when it happens. She has had these pains before with her asthma. She is wheezing as well. She also admitted to vaping. Triage note Has the patient been seen by a primary care provider at an [facility] or [facility] within the past two years? Yes. Have you been in close proximity to/do you have a known exposure to a person with a confirmed case of influenza? No. General treatment eligibility: Date of positive COVID test (PCR or at home)? 02/28/2024 Are you or have you been hospitalized for this COVID-19 infection? No. Have you received monoclonal antibodies or antiviral treatment for COVID-19 since this positive test? No. Do you have any of the following conditions that place you at risk of being very sick from COVID-19? - Chronic lung diseases such as asthma, bronchiectasis, COPD, interstitial lung disease, pulmonary embolism, pulmonary hypertension - Mental health disorders including mood disorders, depression, schizophrenia spectrum disorders - Current or former smoker - Substance use disorder including alcohol abuse, alcohol dependency, chemical dependency Yes, patient has at least one high risk condition as noted above. Current COVID symptoms: - fever or chills - cough - shortness of breath or difficulty breathing - fatigue - muscle or body aches - headache - sore throat - nausea or vomiting - diarrhea Yes. Patient has at least one symptom as selected. Declined paxlovid at this time. Minor asthma symptoms otherwise just fatigue, flu like symptoms. Constitutional, HEENT, cardiovascular, pulmonary, GI, , musculoskeletal, neuro, skin, endocrine and psych systems are negative, except as otherwise noted. Objective Vitals - Patient Reported SpO2 (Patient Reported): 99 Pulse (Patient Reported): 97 Vitals: No vitals were obtained today due to virtual visit. Physical Exam GENERAL: alert and no distress EYES: Eyes grossly normal to inspection. No discharge or erythema, or obvious scleral/conjunctival abnormalities. RESP: No audible wheeze, cough, or visible cyanosis. SKIN: Visible skin clear. No significant rash, abnormal pigmentation or lesions. NEURO: Cranial nerves grossly intact. Mentation and speech appropriate for age. PSYCH: Appropriate affect, tone, and pace of words Video-Visit Details Type of service: Video Visit Video End Time: 1110 Originating Location (pt. Location): Home Distant Location (provider location): On-site Platform used for Video Visit: Akua Signed Electronically by: Shannan Malcolm CNP documented in this encounter Plan of Treatment Upcoming Encounters Date Type Department Care Team (Late st Contact Info) Description 04/06/2024 7:30 AM CDT Virtual Visit [facility] [address] [place] [phone] Lexi Farnsworth, [facility] [address] [place] [address] 04/06/2024 8:00 AM CDT Virtual Visit [facility] [address] [place] [phone] Mattie Tellez APRN BREAKFAST MANAGER [address] [place], [place] [address] documented as of this encounter Visit Diagnoses Diagnosis Infection due to 2019 novel coronavirus- Primary Mild intermittent asthma without complication Unspecified asthma documented in this encounter Additional Health Concerns Assessment Noted Time PHQ-9 Depression Total Score: 9 03/02/20 24 8:53 AM CDT documented as of this encounter Care Teams Underground Truck Operator Relationship Specialty Start Date End Date Shannan Malcolm CNP [address] [place] [address] PCP - General Nurse Practitioner - Family 07/09/22 Shannan Malcolm CNP [address] [place] [address] Assigned PCP 04/07/22 Mattie Tellez APRN BREAKFAST MANAGER [address] [place] [address] Assigned Behavioral Health Provider 09/22/22 documented as of this encounter
--- OUTSIDE RECORDS SUMMARY | 2024-04-04 18:42 | XMS_ITS | Encounter Summary ---
Author Organization [facility] Address [address] [place] [address] Care Team Providers Care Signal Tower Operator Name Role Phone Shannan Malcolm CNP Unavailable [phone] Shannan Malcolm CNP Primary Care Provider [phone] Mattie Tellez APRN WEBBING SUPERVISOR Unavailable Reason for Visit * Reason Onset Date Comments Refill Request 03/29/2024 Encounter Details Date Type Department Care Team (Late st Contact Info) Description 03/29/2024 MyC Refill [facility] Mental Health & [facility] [address] [place] [address] Mattie Tellez, ROSEMARIE WEBBING SUPERVISOR [address] [place] [address] Refill Request Social History Tobacco [...] on file Legal Sex Female 3:13 AM ENTRY TECH Gender Identity Female 02/08/2022 7:17 AM CDT Sexual Orientation Choose not to disclose 2021 7:17 AM CDT documented as of this encounter Miscellaneous Notes * Telephone Encounter - Nadira Ramos RN - 03/30/2024 10:20 AM CDT Date of Last Office Visit: 02/24/24 Date of Next Office Visit: 04/06/24 No shows since last visit: No More than one patient-initiated cancellation (with reschedule) since last seen in clinic? No [x]Medication refilled per ???Medication Refill in [facility] [facility]?? policy. []Medication unable to be refilled by RN due to criteria not met as indicated below: []Eligibility: has not had a provider visit within last 6 months []Supervision: no future appointment; < 7 days before next appointment []Compliance: no shows; cancellations; lapse in therapy []Verification: order discrepancy; may need modification... [] > 30-day supply request []Advanced refill request: > 7 days before refill date []Controlled medication []Medication not included in policy []Review: new med; med adjusted <= 30 days; safety alert; requires lab monitoring... []Scope of Practice: refill request processed by TERRY/LEVI []Other: Medication(s) requested: - hydrOXYzine HCl (ATARAX) 10 MG tablet Date last ordered: 02/24/24 Qty: 30 Refills: 0 Any Controlled Substance(s)? No Requested medication(s) verified as identical to current order? Yes Any lapse in adherence to medication(s) greater than 5 days? N/A Additional action taken? none. Last visit treatment [...] primary care provider. Referral placed for DBT. [facility] will call you to coordinate your care as prescribed by your provider. If you don't hear from a title insurance sales representative within 2 business days, please call [phone]. Safety plan reviewed. To the Emergency Department as needed or call after hours crisis line at [phone] or [phone]. [place] Crisis Text Line. Text [place] to 933432 or Suicide LifeLine Chat: suicidepreventionOmiseline.org/chat Schedule an appointment with me and Behavioral Health Textile Finisher in 4 weeks Any medication(s) require lab monitoring? No documented in this encounter Plan of Treatment Upcoming Encounters Date Type Department Care Team (Late st Contact Info) Description 04/06/2024 7:30 AM CDT Virtual Visit [facility] [address] [place] [address] [address] [place] [address] Lexi Farnsworth, TOOL LIAISON [address] [place], [place] [address] 04/06/2024 8:00 AM CDT Virtual Visit [facility] & [facility] [address] [place] [phone] Mattie Tellez APRN WEBBING SUPERVISOR [address] [place] [address] documented as of this encounter Visit Diagnoses Diagnosis Generalized anxiety disorder with panic attacks documented in this encounter Additional Health Concerns Assessment Noted Time PHQ-9 Depression Total Score: 9 03/02/20 24 8:53 AM CDT documented as of this encounter Care Teams Signal Tower Operator Relationship Specialty Start Date End Date Shannan Malcolm CNP [address] [place] [address] PCP - General Nurse Practitioner - Family 07/09/22 Shannan Malcolm CNP [address] [place] [address] Assigned PCP 04/07/22 Mattie Tellez APRN CNP [address] [place] [id number] Assigned Behavioral Health Provider 09/22/22 documented as of this encounter
--- OUTSIDE RECORDS SUMMARY | 2024-04-04 18:42 | XMS_ITS | Encounter Summary ---
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 Skylar Santillan 38 year old Current weight? Wt Readings from Last 2 Encounters: 02/24/24 77.6 kg (171 lb) 01/27/24 82.1 kg (181 lb) Has the patient been seen by a primary care provider at an [facility] or [facility] within the past two [...] has at least one symptom as selected. How many days since symptoms started? 5 days or less. Established patient, 12 years or older weighing at least 88.2 lbs, who has symptoms that started in the past 5 days, has not been hospitalized nor received treatment already, and is at risk for being very sick from COVID-19. Treatment eligibility by RN: Are you currently or nursing? No Do you have a clinically significant hypersensitivity to nirmatrelvir or ritonavir, or toxic epidermal necrolysis (TEN) or Webb-Finesse Syndrome? No Do you have a history of hepatitis, any hepatic impairment on the Problem List (such as Child-Ko Class C, cirrhosis, fatty liver disease, alcoholic liver disease), or was the last liver lab (hepatic panel, ALT, AST, ALK Phos, bilirubin) elevated in the past 6 months? No Do you have any history of severe renal impairment (eGFR < 30mL/min)? No Is patient eligible to continue? Yes, patient meets all eligibility requirements for the RN COVID treatment (as denoted by all no responses above). Current Outpatient Medications Medication Sig Dispense Refill cloNIDine (CATAPRES) 0.1 MG tablet Take 1 tablet (0.1 mg) by mouth at bedtime. May also take 1 tablet (0.1 mg) daily as needed (anxiety). 60 tablet 0 dexmethylphenidate (FOCALIN XR) 10 MG [...] dose of 60 mg. 90 capsule 0 hydrOXYzine HCl (ATARAX) 10 MG tablet Take 1/2 - 1 tablet (5-10 mg) by mouth up to 2 times daily asneeded for anxiety or other (insomnia). Monitor for drowsiness. 30 tablet 0 levonorgestrel (MIRENA) 20 MCG/24HR IUD 1 each by Intrauterine route once LORazepam (ATIVAN) 0.5 MG tablet Take 1 tablet (0.5 mg) by mouth 2 times daily as needed (panic). to last 30 days. 60 tablet 0 Medications from List 1 of the standing order (on medications that exclude the use of Paxlovid) that patient is taking: NONE. Is patient taking Freistatt's Wort? No Is patient taking Freistatt's Wort or any meds from List 1? No. Medications from List 2 of the standing order (on meds that provider needs to adjust) that patient is taking: NONE. Is patient on any of the meds from List 2? No. Medications from List 3 of standing order (on meds that a RN needs to adjust) that patient is taking: ativan Is patient on any meds from List 3? Yes. Patient is on at least one med that needs a provider visit and will be scheduled or transferred to a medical office worker at the end of this call. Maria Antonia Vázquez RN documented in this encounter Plan of Treatment Upcoming Encounters Date Type Department Care Team (Late st Contact Info) Description 04/06/2024 7:30 AM CDT Virtual Visit [facility] Mental Health & Addiction [facility] [address] [place] [address] [address] [place] [address] Lexi Farnsworth, ROLLER STAINER [address] [facility] [address] [place], [place] [address] 04/06/2024 8:00 AM CDT Virtual Visit [facility] & Addiction [facility] [address] [place] [address] 400 [place] [phone] Mattie Tellez APRN LARD RENDERER [address] [place], [place] [address]685 documented as of this encounter Visit Diagnoses Diagnosis Generalized anxiety disorder with panic attacks documented in this encounter Additional Health Concerns Assessment Noted Time PHQ-9 Depression Total Score: 9 03/02/20 24 8:53 AM CDT documented as of this encounter Care Teams Counseling Aide Relationship Specialty Start Date End Date Shannan Malcolm CNP [address] [place] [address] PCP - General Nurse Practitioner - Family 07/09/22 Shannan Malcolm CNP [address] [place] [address] [id number] Assigned PCP 04/07/22 Mattie Tellez APRN CNP [address] [place], [place] [address]805 Assigned Behavioral Health Provider 09/22/22 documented as of this encounter
--- OUTSIDE RECORDS SUMMARY | 2024-04-04 18:42 | XMS_ITS | Encounter Summary ---
Author Organization [place] Address [address] [place] [address] Care Team Providers Care Hand Icer Name Role Phone Shannan Malcolm CNP Unavailable [phone] Shannan Malcolm CNP Primary Care Provider [phone] Mattie Tellez APRN [employer] Unavailable [phone] Reason for Visit * Reason Onset Date Comments Refill Request 02/24/2024 Prozac 40 Encounter Details Date Type Department Care Team (Late st Contact Info) Description 02/24/[address] [address] Shannan Malcolm, [employer] [address] [place] [address] Refill Request (Prozac 40) Social History Tobacco Use Types Packs/Day Years [...] on file 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 Gender Identity Female 02/08/2022 7:17 AM CDT Sexual Orientation Choose not to disclose 2021 7:17 AM CDT documented as of this encounter Plan of Treatment Upcoming Encounters Date Type Department Care Team (Late st Contact Info) Description 04/06/2024 7:30 AM CDT Virtual Visit [facility] Mental Health & Addiction [facility] [address] [place] [address] Lexi Farnsworth, [facility] [address] [place] [address] [place] [address] 04/06/2024 8:00 AM CDT Virtual Visit [facility] Health & Addiction [facility] [address] [place] [address] Mattie Tellez APRN [employer] [address] [place], [place] [address] documented as of this encounter Visit Diagnoses Diagnosis Generalized anxiety disorder with panic attacks MDD (major depressive disorder), recurrent episode, moderate (H) Major depressive disorder, recurrent episode, moderate documented in this encounter Additional Health Concerns Assessment Noted Time PHQ-9 Depression Total Score: 6 01/01/20 24 10:48 AM CDT documented as of this encounter Care Teams Hand Icer Relationship Specialty Start Date End Date Shannan Malcolm CNP [address] [place] [address] PCP - General Nurse Practitioner - Family 07/09/22 Shannan Malcolm CNP [address] [place] [address] Assigned PCP 04/07/22 Mattie Tellez APRN [employer] [address] [place] [address] Assigned Behavioral Health Provider 09/22/22 documented as of this encounter
--- OUTSIDE RECORDS SUMMARY | 2024-04-04 18:42 | XMS_ITS | Encounter Summary ---
Author Organization [place] Address [address] [place] [address] Care Team Providers Care Dietary Internship Name Role Phone Shannan Malcolm CNP Unavailable [phone] Shannan Malcolm CNP Primary Care Provider [phone] Mattie Tellez APRN CYBER INTEL PLANNER Unavailable Reason for Visit * Reason Onset Date Comments Medication Request 03/14/2024 Change anti-a nxiety medication Encounter Details Date Type Department Care Team (Late st Contact Info) Description 03/14/2024 [facility] Medical Advice [facility] Mental Health & Addiction [facility] [address] [place] [address] [address] [place] [address] Mattie Tellez APRN CYBER INTEL PLANNER [address] [place] [address] Medication Request (Change anti-anxiety me... 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 Per [place] INVENTORY SPECIALIST, LORazepam (ATIVAN) 0.5 MG tablet was last purchased on 02/25/24. Lauren Esparza RN on 03/16/2024 at 12:11 PM documented in this encounter Plan of Treatment Upcoming Encounters Date Type Department Care Team (Late st Contact Info) Description 04/06/2024 7:30 AM CDT Virtual Visit [facility] Mental Health & Addiction [facility] [address] [place] [address] [address] [place] [address] Lexi Farnsworth, STARS SPECIALIST [address] [place] [place], [place] [address] 04/06/2024 8:00 AM CDT Virtual Visit [facility] Health & Addiction [facility] [address] [address] [place] [address] Mattie Tellez APRN CYBER INTEL PLANNER [address] [place], [place] [address] documented as of this encounter Visit Diagnoses Not on filedocumented in this encounter Additional Health Concerns Assessment Noted Time PHQ-9 Depression Total Score: 9 03/02/20 8:53 AM CDT documented as of this encounter Care Teams Dietary Internship Relationship Specialty Start Date End Date Shannan Malcolm CNP [address] [place] [address] PCP - General Nurse Practitioner - Family 07/09/22 Shannan Malcolm CNP [address] [place], [place] 9503[address] Assigned PCP 04/07/22 Mattie Tellez APRN CNP [address] [place] [address] Assigned Behavioral Health Provider 09/22/22 documented as of this encounter
--- OUTSIDE RECORDS SUMMARY | 2024-04-04 18:43 | XMS_ITS | Encounter Summary ---
Author Organization [place] Address [address] [place] [address] Care Team Providers Care Manager Safe Name Role Phone Shannan Malcolm CNP Unavailable [phone] Shannan Malcolm CNP Primary Care Provider [phone] Mattie Tellez APRN OTR DRIVER Unavailable [phone] Reason for Visit * Reason Onset Date Comments Medication Question 12/26/2023 Encounter Details Date Type Department Care Team (Late st Contact Info) Description 12/26/2023 [facility] Medical Advice [facility] Mental Health & Addiction [facility] [address] [place] [address] Mattie Tellez APRN OTR DRIVER [address] [place] [address] Medication Question Social History Tobacco Use Types Packs/Day Years Used Date Smoking Tobacco: Former Cigarettes 0 12/2018 - 12/2022 Smokeless Tobacco: Never Comments: 12/10/2022 patient using nicotine patch and lozenges and on the path to quitting smoking. 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 Gender Identity Female 02/08/2022 7:17 AM CDT Sexual Orientation Choose not to disclose 2021 7:17 AM CDT documented as of this encounter Plan of Treatment Upcoming Encounters Date Type Department Care Team (Late st Contact Info) Description 04/06/2024 7:30 AM CDT Virtual Visit [facility] Mental Health & Addiction [facility] [address] [place] [address] Lexi Farnsworth, [facility] [address] [place], [place] [address] 04/06/2024 8:00 AM CDT Virtual Visit [facility] Mental Health & Addiction [facility] [address] [place] [phone] Mattie Tellez APRN OTR DRIVER [address] [place], [place] [address] documented as of this encounter Visit Diagnoses Not on filedocumented in this encounter Additional Health Concerns Assessment Noted Time PHQ-9 Depression Total Score: 4 12/11/19 23 7:53 AM CDT documented as of this encounter Care Teams Manager Safe Relationship Specialty Start Date End Date Shannan Malcolm CNP [address] [place] [address] PCP - General Nurse Practitioner - Family 07/09/22 Shannan Malcolm CNP [address] [place] [address] Assigned PCP 04/07/22 Mattie Tellez APRN OTR DRIVER [address] [place] [address] Assigned Behavioral Health Provider 09/22/22 documented as of this encounter
--- OUTSIDE RECORDS SUMMARY | 2024-04-04 18:43 | XMS_ITS | Encounter Summary ---
Author Organization [place] Address [facility] [place] [address] Care Team Providers Care Web Development Director Name Role Phone Shannan Malcolm CNP Unavailable [phone] Shannan Malcolm CNP Primary Care Provider [phone] Mattie Tellez APRN NIGHT ASSISTANT Unavailable [phone] Encounter Details Date Type Department Care Team (Late st Contact Info) Description 10/10/2023 [facility] Medical Advice [facility] Mental Health & Addiction [facility] [address] [address] [place] [address] Mattie Tellez APRN NIGHT ASSISTANT [address] [facility] [place], [place] [address] Social History Tobacco Use Types Packs/Day Years Used Date Smoking Tobacco: Former Cigarettes 0 12/2018 - 12/2022 Smokeless Tobacco: Never Comments: 12/10/2022 patient using nicotine patch and lozenges and on the path to quitting smoking. 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 Gender Identity Female 02/08/2022 7:17 AM CDT Sexual Orientation Choose not to disclose 2021 7:17 AM CDT documented as of this encounter Plan of Treatment Upcoming Encounters Date Type Department Care Team (Late st Contact Info) Description 04/06/2024 7:30 AM CDT Virtual Visit [facility] Mental Health & Addiction [facility] [address] [place] [address] Lexi Farnsworth, SENIOR ENGINEERING ASSOCIATE [address] [place] [address] 04/06/2024 8:00 AM CDT Virtual Visit [facility] Mental Health & Addiction [facility] [address] [place] [address] Mattie Tellez APRN NIGHT ASSISTANT [address] [place] [address] documented as of this encounter Visit Diagnoses Not on filedocumented in this encounter Additional Health Concerns Assessment Noted Time PHQ-9 Depression Total Score: 4 12/11/19 23 7:53 AM CDT documented as of this encounter Care Teams Web Development Director Relationship Specialty Start Date End Date Shannan Malcolm CNP [address] [place] [address] PCP - General Nurse Practitioner - Family 07/09/22 Shannan Malcolm CNP [address] [place] [address] Assigned PCP 04/07/22 Mattie Tellez APRN NIGHT ASSISTANT [address] [place], [place] [address] Assigned Behavioral Health Provider 09/22/22 documented as of this encounter
--- OUTSIDE RECORDS SUMMARY | 2024-04-04 18:43 | XMS_ITS | Encounter Summary ---
Author Organization [place] Address [facility] [place] [address] Care Team Providers Care Agency Appointments Supervisor Name Role Phone Shannan Malcolm CNP Unavailable [phone] Shannan Malcolm CNP Primary Care Provider [phone] Mattie Tellez APRN TEACHER VOCAL Unavailable [phone] Encounter Details Date Type Department Care Team (Late st Contact Info) Description 09/27/2023 [facility] Medical Advice [facility] Mental Health & Addiction [facility] [address] [address] [place] [address] Mattie Tellez APRN TEACHER VOCAL [address] [facility] [place], [place] [address] Social History Tobacco Use Types Packs/Day Years [...] on file 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 Visit today: STOP guanfacine. STOP lorazepam. CHANGE TO Focalin XR 10 mg every day. Script sent for #30. CONTINUE clonazepam 0.5 mg QAM and 1/2 - 1 tablet as needed in afternoon only for severe anxiety. Script sent for #60 to be filled after 10/08/2023. CONTINUE fluoxetine 40 mg every day. No script needed. CONTINUE mirtazapine 7.5 mg at bedtime. No script needed. Yolanda Ahn RN on 09/27/2023 at 11:20 AM documented in this encounter Plan of Treatment Upcoming Encounters Date Type Department Care Team (Late st Contact Info) Description 04/06/2024 7:30 AM CDT Virtual Visit [facility] Mental Health & Addiction [facility] [address] [place] [address] Lexi Farnsworth, ANDREI [address] [place] [address] 04/06/2024 8:00 AM CDT Virtual Visit [facility] Mental Health & Addiction [facility] [address] [place] [address] 400 [place] [address] Mattie Tellez APRN TEACHER VOCAL [address] [place], [place] [address] documented as of this encounter Visit Diagnoses Not on filedocumented in this encounter Additional Health Concerns Assessment Noted Time PHQ-9 Depression Total Score: 4 12/11/19 23 7:53 AM CDT documented as of this encounter Care Teams Agency Appointments Supervisor Relationship Specialty Start Date End Date Shannan Malcolm CNP [address] [place] [address] 965822 PCP - General Nurse Practitioner - Family 07/09/22 Shannan Malcolm CNP [address] [place] [address] 366572 Assigned PCP 04/07/22 Mattie Tellez APRN TEACHER VOCAL [address] [place] [address] Assigned Behavioral Health Provider 09/22/22 documented as of this encounter
--- OUTSIDE RECORDS SUMMARY | 2024-04-04 18:43 | XMS_ITS | Encounter Summary ---
Author Organization [place] Address [address] [place] [address] Care Team Providers Care Administrative Services Assistant Name Role Phone Shannan Malcolm CNP Unavailable [phone] Shannan Malcolm CNP Primary Care Provider [phone] Mattie Tellez APRN AUTO GLASS INSTALLER Unavailable [phone] Encounter Details Date Type Department Care Team (Late st Contact Info) Description 12/31/[address] [facility] Mental Health & Addiction [facility] [address] [address] [place] [address] Mattie Tellez APRN AUTO GLASS INSTALLER [address] [facility] [address] [place], [place] [address] Social History Tobacco Use Types Packs/Day Years Used Date Smoking Tobacco: Every Day Cigarettes Started: 09/22/2013; Last attempted to quit: 09/22/2017 Smokeless Tobacco: Never Comments:2 cigs socially occ asionally 12/10/2022 patient using nicotine patch and lozenges and on the path to quitting smoking. 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 She is clarifying that it was updated and re-faxed. From note from 12/21/22: Updated and re-faxed as directed. Thank you Mattie Tellez APRN, PMHNP- [facility] Yolanda Ahn RN on 12/31/2022 at 2:55 PM documented in this encounter Plan of Treatment Upcoming Encounters Date Type Department Care Team (Late st Contact Info) Description 04/06/2024 7:30 AM CDT Virtual Visit [facility] Mental Health & Addiction [facility] [address] [place] [address] 400 [place] [address] Lexi Farnsworth, [facility] [address] [place], [place] [address] 04/06/2024 8:00 AM CDT Virtual Visit [facility] & Addiction [facility] [address] [address] [place] [address] Mattie Tellez APRN [facility] [address] [place], [place] [address] documented as of this encounter Visit Diagnoses Not on filedocumented in this encounter Additional Health Concerns Assessment Noted Time PHQ-9 Depression Total Score: 4 12/11/19 7:53 AM CDT documented as of this encounter Care Teams Administrative Services Assistant Relationship Specialty Start Date End Date Shannan Malcolm CNP [address] [place] [address] PCP - General Nurse Practitioner - Family 07/09/22 Shannan Malcolm CNP [address] [place] [address] 238482 Assigned PCP 04/07/22 Mattie Tellez APRN AUTO GLASS INSTALLER [address] [place], [place] [address] Assigned Behavioral Health Provider 09/22/22 documented as of this encounter
--- OUTSIDE RECORDS SUMMARY | 2024-04-04 18:43 | XMS_ITS | Encounter Summary ---
Author Organization [facility] Address Formerly [facility] [place] [address] Care Team Providers Care Stock Hanger Name Role Phone Shannan Malcolm CNP Unavailable [phone] Shannan Malcolm CNP Primary Care Provider [phone] Mattie Tellez APRN CHILDREN'S INSTITUTION ATTENDANT Unavailable [phone] Encounter Details Date Type Department Care Team (Late st Contact Info) Description 01/17/2024 [facility] Medical Advice [facility] Mental Health & Addiction [facility] [address] [address] [place] [address] Mattie Tellez APRN CHILDREN'S INSTITUTION ATTENDANT [address] [facility] [address] [place], [place] [address] Social History Tobacco Use Types Packs/Day Years Used Date Smoking Tobacco: Former Cigarettes 0 12/2018 - 12/2022 Smokeless Tobacco: Never Comments: 12/10/2022 patient using nicotine patch and lozenges and on the path to quitting smoking. 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 She would like to pickle cutter her Focalin XR 5 mg and 10 mg today. It is dated on 01/19/24 so pharmacy won't dispense it. She only has 2 days left. [place] DETECTIVE AND INTELLIGENCE ANALYST last sold 12/20/23 for both. She would like it dated for today if possible. Yolanda Ahn RN on 01/17/2024 at 11:35 AM * Telephone Encounter - Chantel Kilpatrick - 01/17/2024 11:07 AM CDTSummary: rx request needs earlier date for pickle cutter Reason for call: Medication If this is a refill request, has the caller requested the refill from the pharmacy already? Yes Will the patient be using a [facility]? Yes [facility] the [phone] Name of the medication requested: focalin xr 5 and focalyn xr 10 Other request: has two left, today is day 28. Rx refill is dated for the when they are not open. Pt would like to pickle cutter today. Phone number to reach patient: Cell number on file: Telephone Information: Best Time: any Can we leave a detailed message on this number? YES Travel screening: Negative documented in this encounter Plan of Treatment Upcoming Encounters Date Type Department Care Team (Late st Contact Info) Description 04/06/2024 7:30 AM CDT Virtual Visit [facility] Mental Health & Addiction [facility] [address] [place] [address] Lexi Farnsworth, BIOLOGY LABORATORY ASSISTANT [address] [place] [address] 04/06/2024 8:00 AM CDT Virtual Visit [facility] Mental Health & Addiction [facility] [address] [place] [phone] Mattie Tellez APRN CHILDREN'S INSTITUTION ATTENDANT [address] [place] [address] documented as of this encounter Visit Diagnoses Not on filedocumented in this encounter Additional Health Concerns Assessment Noted Time PHQ-9 Depression Total Score: 6 01/01/20 24 10:48 AM CDT documented as of this encounter Care Teams Stock Hanger Relationship Specialty Start Date End Date Shannan Malcolm CNP [address] [place] [address] PCP - General Nurse Practitioner - Family 07/09/22 Shannan Malcolm CNP [address] [place] [address] Assigned PCP 04/07/22 Mattie Tellez APRN CHILDREN'S INSTITUTION ATTENDANT [address] [place] [address] Assigned Behavioral Health Provider 09/22/22 documented as of this encounter
--- OUTSIDE RECORDS SUMMARY | 2024-04-04 18:43 | XMS_ITS | Encounter Summary ---
Author Organization [facility] Address [address] [place] [address] Care Team Providers Care Fixture Repairer Fabricator Name Role Phone Shannan Malcolm CNP Unavailable [phone] Shannan Malcolm CNP Primary Care Provider [phone] Mattie Tellez APRN SPEECH THERAPY ASSISTANT Unavailable [phone] Reason for Visit * Reason Onset Date Comments Refill Request 01/23/2024 lorazepam (ATIVA N) 0.5 MG tablet Encounter Details Date Type Department Care Team (Late st Contact Info) Description 01/23/2024 My[facility] Refill [facility] Mental Health & Addiction [facility] [address] [address] [place] [address] Mattie Tellez, ROSEMARIE SPEECH THERAPY ASSISTANT [address] [place] [address] Refill Request (lorazepam (ATIVAN) 0.5 MG ... Social History Tobacco Use Types Packs/Day Years Used Date Smoking Tobacco: Former Cigarettes 0 12/2018 - 12/2022 Smokeless Tobacco: Never Comments: 12/10/2022 patient using nicotine patch and lozenges and on the path to quitting smoking. 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 Per Oscar the patient picked up #30 on 01/13/2024, the date of 01/10/2024 on the patient's bottle is the order date. Carlene Zavaleta RN on 01/24/2024 at 1:06 PM * Telephone Encounter - Carlene Zavaleta RN - 01/24/2024 8:55 AM CDT Images from the original note were not included. -MyC refill message received - Refills have been requested for the following medications: LORazepam (ATIVAN) 0.5 MG tablet [Mattie Tellez] Patient Comment: Pharmacy is not open on the weekends. Wanted to fill them tomorrow Saturday the Preferred pharmacy: [facility] [place] - [id number] -RN called the patient and she said she only has 3 tablets left of her lorazepam. She said she picked it up on 01/10/2024, but the APPEALS NURSE says sold on 01/13/2024. 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 Date of Last Office Visit: 12/26/2023 Date of Next Office Visit: 01/27/2024 No shows since last visit: No More than one patient-initiated cancellation (with reschedule) since last seen in clinic? No []Medication refilled per ???Medication Refill in Sports Analyst?? policy. [x]Medication unable to be refilled by [...] processed by TERRY/LEVI []Other: Medication(s) requested: - lorazepam (ATIVAN) 0.5 MG tablet Date last ordered: 01/13/2024 Qty: 30 Refills: 0 Take 1 tablet (0.5 mg) by mouth 2 times daily as needed (panic) Appropriate for refill? Provider to review. Any Controlled Substance(s)? Yes [place] APPEALS NURSE checked? Yes Lorazepam 0.5 mg tablet was last sold on 01/13/2024 for quantity of 30. Other controlled substance on [place] APPEALS NURSE?: Yes If yes, are any new medications? No Requested medication(s) verified as identical to current order? Yes Any lapse in adherence to medication(s) greater than 5 days? No Additional action taken? routed encounter to provider for review. Last visit treatment plan: Impression: Skylar Santillan is a 38 year old female who presents for return visit with [facility] for medication management. At last appointment 6 weeks ago, we continued fluoxetine 60 mg, focalin XR 15 mg / IR 5 mg in afternoon, mirtazapine 7.5 mg at bedtime, and clonazepam 0.5 mg QAM and 0.25-0.5 mg as needed in afternoon. Patient again reports taking clonazepam over what was prescribed (TID versus BID) given ongoing high anxiety with ongoing stressors. She adamantlydenies the stimulant worsening anxiety, feels it has been only helpful but maybe increases some when medication is out of her system. She does struggle some with the timing of taking medications and sleep due to changing work schedule. She does note that her mood and depression have been doing verywell, wake up happy. Denies any SI/SIB/HI, psychosis, seamus. She was unable to continue with mostrecent therapist as missed too many appts. [facility] sent some options she is looking into. Consider restart of naltrexone or disulfirim if cravings continue in the future. Benzodiazepines risks reviewed again today, as well as significant issue with patient taking medication not as prescribed.Overall our goal remains to taper off and discontinue the benzodiazepine entirely. Today, patient is open to move to diazepam that may allow for a better taper. She will update in 2 weeks how it is going, follow-up in 4 weeks with this provider. Continue all other medications. Patient agreeable to plan. Medication side effects and alternatives were reviewed. Health promotion activities recommended claudiod today. All questions addressed. Education and counseling completed regarding risks and benefits of medications and psychotherapy options. Recommend therapy for additional support. Treatment Plan: STOP clonazepam 0.5 mg. START diazepam 5 mg in AM and 2.5-5 mg (1/2 -1 tablet) in afternoon as needed for anxiety. Script sent for #28. Contact provider via phone or [facility] in 2 weeks for diazepam refill (or return to clonazepam). CONTINUE fluoxetine 60 mg (40 mg + 20 mg) every day. No script needed. CONTINUE Focalin XR 15 mg (10 mg + 5 mg) every day. Script sent to be filled after 01/19/24. CONTINUE focalin 5 mg every day in the afternoon. Script sent to be filled after 01/07/24. STOP clonazepam 0.5 mg. CONTINUE mirtazapine 7.5 mg at bedtime. No script needed. Continue all other medications per primary care provider. Recommend continuing therapy with new provider as planned. Safety plan reviewed. To the Emergency Department as needed or call after hours crisis line at [phone] or [phone]. [place] Crisis Text Line. Text [place] to [address]6 or Suicide LifeLine Chat: suicidepreventionlifeline.org/chat Schedule an appointment with me in 4 weeks or sooner as needed. Call [facility] [phone] to schedule. Follow up with primary care provider as planned or for acute medical concerns. Call the psychiatric nurse line with medication questions or concerns at [phone]. Cheggin may be used to communicate with your provider, but this is not intended to be used for emergencies. Any medication(s) require lab monitoring? No documented in this encounter Plan of Treatment Upcoming Encounters Date Type Department Care Team (Late st Contact Info) Description 04/06/2024 7:30 AM CDT Virtual Visit [facility] Mental Health & Addiction [facility] [address] [place] [address] Lexi Farnsworth, [facility] [address] [place] [address] 04/06/2024 8:00 AM CDT Virtual Visit [facility] Health & Addiction [facility] [address] [place] [phone] Mattie Tellez APRN SPEECH THERAPY ASSISTANT [address] [place], [place] [address] documented as of this encounter Visit Diagnoses Diagnosis CATHY (generalized anxiety disorder) Generalized anxiety disorder documented in this encounter Additional Health Concerns Assessment Noted Time PHQ-9 Depression Total Score: 6 01/01/20 24 10:48 AM CDT documented as of this encounter Care Teams Fixture Repairer Fabricator Relationship Specialty Start Date End Date Shannan Malcolm CNP [address] [place] [address] PCP - General Nurse Practitioner - Family 07/09/22 Shannan Malcolm CNP [address] [place] [address] Assigned PCP 04/07/22 Mattie Tellez APRN SPEECH THERAPY ASSISTANT [address] [place] [address] Assigned Behavioral Health Provider 09/22/22 documented as of this encounter
--- OUTSIDE RECORDS SUMMARY | 2024-04-04 18:43 | XMS_ITS | Encounter Summary ---
Author Organization [facility] Address [address] [place] [address]. [place] [address] Care Team Providers Care Fresh Foods Technician Name Role Phone Shannan Malcolm CNP Unavailable [phone] Shannan Malcolm CNP Primary Care Provider [phone] Mattie Tellez APRN VAMP CREASER Unavailable [phone] Encounter Details Date Type Department Care Team (Late st Contact Info) Description 02/23/2023 [facility] Medical Advice [facility] Mental Health & Addiction [facility] [address] [address] [place] [address] Mattie Tellez APRN VAMP CREASER [address] [facility] [address] [place] [place], [place] [id number] Social History Tobacco Use Types Packs/Day Years [...] on file 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 Routing to provider for review and recommendation. RN acknowledged receipt of MyC message. Mariann Maloney RN on 02/25/2023 at 9:22 AM documented in this encounter Plan of Treatment Upcoming Encounters Date Type Department Care Team (Late st Contact Info) Description 04/06/2024 7:30 AM CDT Virtual Visit [facility] Mental Health & Addiction [facility] [address] [place] [address] [address] [place] [address] Lexi Farnsworth, [facility] [address] [place], [place] [address] 04/06/2024 8:00 AM CDT Virtual Visit [facility] Mental Health & Addiction [facility] [address] [address] [place] [phone] Mattie Tellez APRN VAMP CREASER [address] [place], [place] [address] documented as of this encounter Visit Diagnoses Not on filedocumented in this encounter Additional Health Concerns Assessment Noted Time PHQ-9 Depression Total Score: 4 12/11/19 23 7:53 AM CDT documented as of this encounter Care Teams Fresh Foods Technician Relationship Specialty Start Date End Date Shannan Malcolm CNP [address] [place] [address] PCP - General Nurse Practitioner - Family 07/09/22 Shannan Malcolm CNP [address] [place] [address] Assigned PCP 04/07/22 Mattie Tellez APRN CNP [address] [place] [address] Assigned Behavioral Health Provider 09/22/22 documented as of this encounter
--- OUTSIDE RECORDS SUMMARY | 2024-04-04 18:43 | XMS_ITS | Encounter Summary ---
Author Organization [facility] Address [address] [place] [address] Care Team Providers Care 8Th Grade Mathematics Teacher Name Role Phone Shannan Malcolm CNP Unavailable [phone] Shannan Malcolm CNP Primary Care Provider [phone] Mattie Tellez APRN STEWARD/STEWARDESS BANQUET Unavailable [phone] Reason for Visit * Reason Onset Date Comments Panel Management 01/01/2024 Encounter Details Date Type Department Care Team (Late st Contact Info) Description 01/01/[address] [address] Shannan Malcolm, STEWARD/STEWARDESS BANQUET [address] [place] [address] Panel Management Social History Tobacco Use Types Packs/Day Years [...] on file 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 [address] [place] [address] Lexi Farnsworth, [facility] [address] [place], [place] [address] 04/06/2024 8:00 AM CDT Virtual Visit [facility] Mental Health & Addiction [facility] [address] [place] [phone] Mattie Tellez APRN STEWARD/STEWARDESS BANQUET [address] [place], [place] [address] documented as of this encounter Visit Diagnoses Not on filedocumented in this encounter Additional Health Concerns Assessment Noted Time PHQ-9 Depression Total Score: 6 01/01/20 24 10:48 AM CDT documented as of this encounter Care Teams 8Th Grade Mathematics Teacher Relationship Specialty Start Date End Date Shannan Malcolm CNP [address] [place] [address] PCP - General Nurse Practitioner - Family 07/09/22 Shannan Malcolm CNP [address] [place] [address] Assigned PCP 04/07/22 Mattie Tellez APRN STEWARD/STEWARDESS BANQUET [address] [place] [address] Assigned Behavioral Health Provider 09/22/22 documented as of this encounter
--- OUTSIDE RECORDS SUMMARY | 2024-04-04 18:43 | XMS_ITS | Encounter Summary ---
Author Organization [facility] Address [address] [place] [address] Care Team Providers Care Internet Marketing Analyst Name Role Phone Shannan Malcolm CNP Unavailable [phone] Shannan Malcolm CNP Primary Care Provider [phone] Mattie Tellez APRN BATCHMAKER Unavailable [phone] Reason for Visit * Reason Onset Date Comments Refill Request 12/31/2022 Encounter Details Date Type Department Care Team (Late st Contact Info) Description 12/31/2022 MyC Refill [facility] Mental Health & Addiction [facility] [address] [place] [address] Mattie Tellez, ROSEMARIE BATCHMAKER [address] [place] [address] Refill Request Social History Tobacco [...] on file 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 Gender Identity Female 02/08/2022 7:17 AM CDT Sexual Orientation Choose not to disclose 2021 7:17 AM CDT documented as of this encounter Plan of Treatment Upcoming Encounters Date Type Department Care Team (Late st Contact Info) Description 04/06/2024 7:30 AM CDT Virtual Visit [facility] Mental Health & Addiction [facility] [address] [place] [address] Lexi Farnsworth, [facility] [address] [place], [place] [address] 04/06/2024 8:00 AM CDT Virtual Visit [facility] Mental Health & Addiction [facility] [address] [place] [phone] Mattie Tellez APRN BATCHMAKER [address] [place], [place] [address] documented as of this encounter Visit Diagnoses Diagnosis CATHY (generalized anxiety disorder) Generalized anxiety disorder documented in this encounter Additional Health Concerns Assessment Noted Time PHQ-9 Depression Total Score: 4 12/11/19 7:53 AM CDT documented as of this encounter Care Teams Internet Marketing Analyst Relationship Specialty Start Date End Date Shannan Malcolm CNP [address] [place] [address] PCP - General Nurse Practitioner - Family 07/09/22 Shannan Malcolm CNP [address] [place] [address] Assigned PCP 04/07/22 Mattie Tellez APRN BATCHMAKER [address] [place] [address] Assigned Behavioral Health Provider 09/22/22 documented as of this encounter
--- OUTSIDE RECORDS SUMMARY | 2024-04-04 18:43 | XMS_ITS | Encounter Summary ---
Author Organization [facility] Address [address] [place] [id number] Care Team Providers Care It Systems Analyst Consultant Name Role Phone Shannan Malcolm CNP Unavailable [phone] Shannan Malcolm CNP Primary Care Provider [phone] Mattie Tellez APRN FEATHER DRYING MACHINE OPERATOR Unavailable [phone] Reason for Visit * Reason Onset Date Comments Refill Request 02/17/2024 dexmethylphenida te (FOCALIN XR) 5 MG 24 hr capsule Encounter Details Date Type Department Care Team (Late st Contact Info) Description 02/17/2024 MyC Refill [facility] [address] [place] [address] Mattie Tellez APRN FEATHER DRYING MACHINE OPERATOR [address] [place] [address] Refill Request (dexmethylphenidate (FOCALI... 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 Date of Last Office Visit: 01/27/2024 Date of Next Office Visit: 02/24/2024 No shows since last visit: No More than one patient-initiated cancellation (with reschedule) since last seen in clinic? No []Medication refilled per ???Medication Refill in Custodial Laborer?? policy. [x]Medication unable to be refilled by [...] []Scope of Practice: refill request processed by [facility] []Other: Medication(s) requested: - dexmethylphenidate (FOCALIN XR) 5 MG 24 hr capsule Date last ordered: 01/19/2024 Qty: 30 Refills: 0 Take 1 capsule (5 mg) by mouth every morning With Focalin XR 10 mg for total dose of 15 mg. - Appropriate for refill? Provider to review. Controlled Substance Any Controlled Substance(s)? Yes [place] SOLAR ENERGY SYSTEMS ENGINEER checked? Yes Dexmethylphenidate ER 5 mg cap was last sold on 01/23/2024 for quantity of 30. Other controlled substance on [place] SOLAR ENERGY SYSTEMS ENGINEER?: Yes Requested medication(s) verified as identical to current order? Yes Any lapse in adherence to medication(s) greater than 5 days? N/A Additional action taken? routed encounter to provider for review. Last visit treatment plan: Impression: Skylar Santillan is a 38 year old or White, female who presents for return visit with [facility] for medication management. At last appointment one month ago, we trialed move to diazepam from clonazepam, and continued fluoxetine 60 mg, focalin XR 15 mg / IR 5 mg in afternoon, mirtazapine 7.5 mg at bedtime. Patient reported not tolerating benzodiazepine change, felt it was significantly worse for heranxiety and requested return to lorazepam which we did. Discussing today, patient is reporting increased tolerance to benzodiazepine medication and has self-increased to lorazepam 1 mg (2x tablets). Again reviewed controlled substance policy that does not allow early refill and need to take medication only as prescribed. She does report ongoing sobriety from alcohol, even with higher stressors recently. She denies significant depression, no SI/SIB/HI, psychosis, seamus. Her sleep is well managedwith mirtazapine but she has had significant increase [...] in 4 weeks or sooner as needed. Medication side effects and alternatives were reviewed. Health promotion activities recommended andreviewed today. All questions addressed. Education and counseling completed regarding risks and benefits of medications and psychotherapy options. Recommend therapy for additional support. Treatment Plan: DISCONTINUE mirtazapine. START clonidine 0.1 mg at bedtime. After 1 week, add 0.1 mg during day as needed for anxiety. Monitor blood pressure. CONTINUE lorazepam 0.5 mg up to twice a day as needed for severe anxiety. Script sent for #60 for 30 days. No early refills. CONTINUE fluoxetine 60 mg (40 mg + 20 mg) every day. No script needed. CONTINUE Focalin XR 15 mg (10 mg + 5 mg) every day. No script needed (filled 01/19 and 01/22 due to shortage) CONTINUE focalin 5 mg every day in the afternoon. Script sent to be filled after 02/07/24. Continue all other medications per primary care provider. Recommend continuing therapy with new provider as planned. Safety plan reviewed. To the Emergency Department as needed or call after hours crisis line at [phone] or [phone]. [place] Crisis Text Line. Text [place] to 009702 or Suicide LifeLine Chat: suicidepreventionC[facility]dz[facility].org/chat Schedule an appointment with me in 4 weeks or sooner as needed. Call [facility] [phone] to schedule. Follow up with primary care provider as planned or for acute medical concerns. Call the psychiatric nurse line with medication questions or concerns at [phone]. MyChart may be used to communicate with your provider, but this is not intended to be used for emergencies. Any medication(s) require lab monitoring? No documented in this encounter Plan of Treatment Upcoming Encounters Date Type Department Care Team (Late st Contact Info) Description 04/06/2024 7:30 AM CDT Virtual Visit [facility] [address] [place] [address] [address] [place] [address] Lexi Farnsworth, MANAGER SHIPPING [address] [place], [place] [id number] 04/06/2024 8:00 AM CDT Virtual Visit [facility] [address] [place] [address] [address] [place] [phone] Mattie Tellez APRN FEATHER DRYING MACHINE OPERATOR [address] [place] [address] documented as of this encounter Visit Diagnoses Diagnosis Attention deficit hyperactivity disorder (ADHD), unspecified ADHD type documented in this encounter Additional Health Concerns Assessment Noted Time PHQ-9 Depression Total Score: 6 0724/20 24 10:48 AM CDT documented as of this encounter Care Teams It Systems Analyst Consultant Relationship Specialty Start Date End Date Shannan Malcolm CNP [address] [place] [id number] PCP - General Nurse Practitioner - Family 07/09/22 Shannan Malcolm CNP [address] [place] [address] Assigned PCP 04/07/22 Mattie Tellez APRN FEATHER DRYING MACHINE OPERATOR [address] [place] [address] Assigned Behavioral Health Provider 09/22/22 documented as of this encounter
--- OUTSIDE RECORDS SUMMARY | 2024-04-04 18:43 | XMS_ITS | Encounter Summary ---
Author Organization [facility] Address [address] [place] [address] Care Team Providers Care Commissary Assistant Name Role Phone Shannan Malcolm CNP Unavailable [phone] Shannan Malcolm CNP Primary Care Provider [phone] Mattie Tellez APRN HAND EDGE BANDER Unavailable [phone] Reason for Visit * Reason Comments RECHECK Encounter Details Date Type Department Care Team (Latest Contact Info) Description 12/26/2023 11:30 AM CDT Virtual Visit [facility] [address] [place] [address] [address] [place] [address] Mattie Tellez, ROSEMARIE HAND EDGE BANDER [address] [place], [place] [id number] Generalized anxiety disorder with panic attacks (Primary Dx); Attention deficit hyperactivity disorder (ADHD), unspecified ADHD type Social History Tobacco Use Types Packs/Day Years [...] on file 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 TREATMENT PLAN: Medications: STOP clonazepam 0.5 mg. START diazepam 5 mg in AM and 2.5-5 mg (1/2 -1 tablet) in afternoon as needed for anxiety. Script sent for #28. Contact provider via phone or Beartooth [employer], INChart in 2 weeks for diazepam refill (or [...] per primary care provider. Consults / Referrals: Recommend continuing therapy with new provider as planned. Follow-up: Schedule an appointment with me in 4 weeks or sooner as needed. Call [facility] [phone] to schedule. Follow up with primary care provider as planned or for acute medical concerns. Call the psychiatric nurse line with medication questions or concerns at [phone]. BTC Trip may be used to communicate with your [...] patientis advised that I will not prescribe supervisor intermediates/high dose benzodiazepine due to risk in addition [...] cardiovascular risks, increased blood pressure. Financial Assistance [phone] [employer] Billing [phone] Central Billing Office, [facility]: [phone] [facility]illing [phone] Medical Records [phone] [facility] Patient Bill of Rights [email or web address] MENTAL HEALTH CRISIS RESOURCES: For a emergency help, please call 911 or go to the nearest Emergency Department. Emergency Walk-In Options: EmPATH Unit @ [facility] ([place]): [phone] - Specialized mental health emergency area designed to be calming [facility] [place] ([place]): [phone] [facility] ([place]): [phone] [place]): [phone] [facility] Crisis Information: [place]: [phone] [place]: [phone] Rich[place] ([place]) - Adult: [phone] Child: [phone] Jeff - Adult: [phone] Child: [phone] [place]: [phone] List of all [facility] resources: https://ca.gov/dhs/mcgpvz-xk-lnayk/adults/health-care/mental-health/resources/cr therese-contacts.jsp National Crisis Information: National Suicide & Crisis Lifeline: Call 988 For online chat options, visit https://suicidepreventionlifeline.org/chat/ Poison Control Center: Poison Control Center: Trans Lifeline: - Hotline for transgender people of all ages The Juan Project: - Hotline for LGBT youth For Non-Emergency Support: Fast Tracker: Mental Health & Substance Use Disorder Resources - https://www.[employer].org/ Again thank you for choosing [facility] and please let us know how [...] someone else's life is in danger. Call 988 anytime to reach the national Suicide and Crisis hotline. Medicine refills To refill your medicine, call your pharmacy. You can also call [facility]'s Behavioral Access at , Saturday to [...] your health care provider. Copyright ?? 2021 [employer]. All rights reserved. Face.com [id number] - 05/31. documented in this encounter Progress Notes * Mattie Tellez APRN CNP - 12/26/2023 11:30 AM CDT Images from the original note [...] Shannan Malcolm CNP Therapist: none currently The [facility] psychiatry providers act as a specialty service for Primary Care Providers in the [facility] who seek to optimize medications for unstable patients. Once medications have been optimized, [facility] providers discharge the patient back to the referring Primary Care Provider for ongoing medication management. This type of system allows [facility] to serve a high volume of patients. Patient Identification: Patient is a 38 year old, in a relationship or White or female who presents for return visit with me. Patient prefers to be called: Melisa. 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 RECORDS AVAILABLE FOR REVIEW: EHR records through [email or web address] . Interim History: I last saw Skylar Santillan for outpatient psychiatry Return Visit six weeks ago on 11/14/23. During that appointment, we continued fluoxetine 60 mg, focalin XR 10 mg / IR 5 mg in afternoon, mirtazapine 7.5 mg at bedtime, and clonazepam 0.5 mg QAM and 0.25-0.5 mg as needed in afternoon. In interim, patient requested increase to focalin XR 15 mg which was granted, no other medication changes made without appointment. Patient reports ADHERING to prescribed medications, however does admit to taking clonazepam 0.5 mg up to TID some days due to high anxiety which she attributes to significant stressors at home due to spouse drinking ETOH again and her efforts to remain sober (white chidiuckling not drinking). Reports the clonazepam calms that need. She feels confident she will continue to abstain, did reach out to [facility] to check back in. Anxiety very high daily, associated with feeling elephant sitting on my chest, can't move and worse when idle, not busy. She adamantly denies the stimulant worsening anxiety, feels it has been only helpful but maybe increases some when medication is out of her system. She does struggle some with the schedule of taking, as she works 2-10PMusually, at times doubles 2PM -6AM, and then has to work that evening. She is sleeping well with mirtazapine still, but schedule is all over. She does note that her mood and depression have been doing very well, wake up happy. Denies any SI/SIB/HI, psychosis, seamus. She was unable to continue with most recent therapist as missed too many appts. [facility] sent some options she is looking into. Initial Impression / MREs: 11/14/23: At last appointment, we increased to fluoxetine 60 mg, continued focalin XR 10 mg, mirtazapine 7.5 mg at bedtime, and clonazepam 0.25-0.5 mg up to twice a day for severe anxiety. In interim, patient requested to restart afternoon focalin IR with return to work and sent focalin 2.5-5 mg to use PRN. She also again requested early fill on clonazepam which was denied after several early refill requests and discussions that medication needs to be taken as prescribed. She does report mild symptoms of benzodiazepine withdrawal over last few days without medication and commits to making medication last for prescription today, and agrees with overall desire to taper and discontinue in the future. Anxiety is elevated recently due to multiple stressors, denies worsening with medication changes. Does think her mood has been better with the fluoxetine increase, denies any SI/SIB/HI, no psychosis, seamus, and ongoing sobriety from alcohol per patient. We will plan to continue current medications. Follow-up in 8 weeks. 10/18/23: At last appointment, we stopped guanfacine (patient taking inconsistently), stopped lorazepam (for only 1 benzodiazepine), and changed to Focalin XR 10 mg, continued fluoxetine 40 mg, mirtazapine 7.5 mg, and clonazepam 0.5 mg up to twice a day as needed for severe anxiety. In interim, patient reported self-increasing to clonazepam 2-3x a day and needed an early refill which has been requested multiple times. Clarified with patient no more early refills will be provided and medication needs to be taken as prescribed, and overall goal to taper off daily use of benzodiazepine which she is in agreement with. She does report a high level of anxiety remains, but has improved mildly overall with fluoxetine as well as Focalin XR (vs IR). Mild increase in depression given high stressors. No SI/SIB/HI, psychosis, seamus. She just celebrated 18 months sober from alcohol. We will initially plan increase to fluoxetine for additional anxiety and depressive symptoms. Could consider addition / change to buspirone for additional anxiety support if not tolerated. Continue all other medications. Continue in therapy. Follow-up with this provider in one month. Patient agreeable to plan. 05/28/23: Skylar Santillan [...] isunsure. She reports concern for ADHD symptoms, anibal r/t her work of difficulty sustaining attention,forgetfulness, [...] Current Outpatient Medications Medication Sig Dispense Refill clonazePAM (KLONOPIN) 0.5 MG tablet Take 1 tablet (0.5 mg) by mouth every morning. May also take 0.5-1 tablets (0.25-0.5 mg) daily as needed for anxiety (high anxiety in afternoon). Total daily dose:1 mg. 60 tablets to last 30 days. 60 tablet 1 dexmethylphenidate (FOCALIN XR) 10 MG 24 hr capsule Take 1 capsule (10 mg) by mouth every morning With Focalin XR 5 mg for total dose of 15 mg. 30 capsule 0 dexmethylphenidate (FOCALIN XR) 10 MG 24 hr capsule Take 1 capsule (10 mg) by mouth daily 30 capsule 0 dexmethylphenidate (FOCALIN XR) 5 [...] IUD 1 each by Intrauterine route once mirtazapine (REMERON) 7.5 MG tablet Take 1 tablet (7.5 mg) by mouth at bedtime 90 tablet 0 No current facility-administered medications for this visit. Side effects: Yes: fluoxetine: sexual desire a little on the low side, can tell it's a little effected but not worth changing The [place] Prescription Monitoring Program has been reviewed and there are no concerns about diversionary activity for controlled substances at this time. 12/20/2023 12/20/2023 3 Dexmethylphenidate Er 5 Mg Cap 30.00 30 Cl Hil [id number] [place] ([id number]) 0/0 Medicaid [place] 12/20/2023 12/20/2023 3 Dexmethylphenidate Er 10 Mg Cp 30.00 30 Cl Hil [id number] [place] ([id number]) 00 Medicaid [place] 12/13/2023 11/14/2023 3 Clonazepam 0.5 Mg Tablet 60.00 30 Cl Hil [id number] [place] ([id number]) 06/10 2.00 LME Medicaid [place] 12/09/2023 12/09/2023 3 Dexmethylphenidate 2.5 Mg Tab 60.00 30 Cl Hil [id number] [place] ([id number]) 00 Medicaid [place] Psychiatric ROS: Skylar Santillan reports mood has been: Feel like mood is better, feel happy. But anxiety hasn't gotten better. Depression has been: appetite change or significant weight loss / gain, sleep changes (insomnia or hypersomnia), worthlessness or excessive guilt, and difficulty concentrating or indecisiveness SI/SIB/HI: denies all Anxiety has been: excessive worry, difficult to control, restlessness / feeling keyed up, difficulty concentrating or mind going blank, irritability, muscle tension, and sleep disturbances (difficulty falling / staying asleep, or restless / unsatisfying) Sleep has been: good with mirtazapine, but schedule is all over due to work Energy has been: no significant issue Appetite has been: ok, during the day not really that hungry, uses protein shakes and then eatingat night after work. Mirtazapine definitely increase my want to eat at night. Seamus sxs: none Psychosis sxs: denies ADHD/ADD sxs: best improvement with Focalin XR and afternoon augment PTSD sxs: exaggerated negative beliefs about self, others, world and negative emotional state, problems concentrating and sleep disturbances, nightmares. GAD2 scores were reviewed today: 2 PHQ-9 scores: 07/25/2022 11:31 AM 09/04/2022 12:29 PM 12/10/2022 7:53 AM PHQ-9 SCORE PHQ-9 Total Score Jeremit 16 (Moderately severe depression) 25 (Severe depression) 4 (Minimal depression) PHQ-9 Total Score 25 4 CATHY-7 scores: 04/04/2023 10:22 AM 05/30/2023 1:39 PM 08/28/2023 9:41 AM CATHY-7 SCORE Total Score 9 (mild anxiety) 9 (mild anxiety) 11 (moderate anxiety) Total Score 9 9 11 Promis-10 ?? [id number] [facility] [employer] Version 1.1 Question 12/26/2023 10:20 AM CDT - Filed by Patient In general, would you say your health is: Good In general, would you say your quality of life is: Very good In general, how would you rate your physical health? Fair In general, how would you rate your mental health, including your mood and your ability to think? Very good In general, how would you rate your satisfaction with your social activities and relationships? Fair In general, please rate how well you carry out your usual social activities and roles. (This includes activities at home, at work and in your community, and responsibilities as a parent, child, spouse, employee, friend, etc.) Very good To what extent are you able to carry out your everyday physical activities such as walking, climbing stairs, carrying groceries, or moving a chair? Completely In the past 7 days How often have you been bothered by emotional problems such as feeling anxious, depressed or irritable? Sometimes How would you rate your fatigue on average? Moderate How would you rate your pain on average? 0 = No Pain to 10 = Worst Imaginable Pain 4 Current stressors include: Parenting Stress, Symptoms and Occupational Difficulties, relationship difficulties, new job Coping mechanisms and supports include: Family, [facility], AA, therapy Vital Signs: There were no vitals taken for this visit. Review of Systems: 10 systems (general, cardiovascular, [...] abnormal muscle mvmts; novisible skin changes / rashes . The remaining systems are all unremarkable. [...] allergies: Allergies Allergen Reactions Pcn [Penicillins] Rash Social History: place: [place], [place] Childhood: No: Parents and Reported as raised by single mother. Father at 58 y/o Siblings: 2 siblings (brother and sister) Highest education level was unknown. Employment Status: employed ful time in [employer] Relationship status: partnered Current Living situation: with partner, daughter. Feels safe at home. Children: one - 11 y/o daughter. Firearms/Weapons Access: No: Patient denies Service: No Support: mother Current Use of Drugs/Alcohol: denies all substance use. Past Use of Drugs/Alcohol: alcohol use disorder, last drink 2 months ago. Reports infrequent other substances while she was intoxicated. Tobacco use: infrequently - a few cigarettes Mental Status Exam: Alertness: alert and oriented Appearance: adequately groomed Behavior/Demeanor: cooperative and pleasant, with good eye contact Speech: normal and regular rate and rhythm Language: intact and no problems Psychomotor: fidgety Mood: anxious and worried Affect: full [...] assessed. No amnesia. Attention Span and Concentration: intact to interview Fund of Knowledge: appropriate Gait and Station: unremarkable Suicide Risk Assessment: Today Skylar Santillan reports [...] patient convincingly denies suicidality on several occasions. [employer]ongo[employer] safety resources printed and reviewed for patient to use if needed. There was no deceit detected, and the patient presented in a manner that was believable. Recommended that patient call 911 or go to the local ED should there be a change in any of these risk factors. 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, predominantly inattentive type 296.32 (F33.1) Major Depressive Disorder, Recurrent Episode, Moderate _ 300.02 (F41.1) Generalized Anxiety Disorder with panic attacks F10.91 Alcohol use disorder in remission Medical comorbidities include: Patient Active Problem List Diagnosis Date Noted CARDIOVASCULAR SCREENING; LDL GOAL LESS THAN 160 04/09/2010 Priority: High Mild intermittent asthma 09/04/2005 Priority: High exercise related PTSD (post-traumatic stress disorder) 09/27/2022 Priority: Medium Attention deficit hyperactivity disorder (ADHD), predominantly inattentive type 09/27/2022 Priority: Medium MDD (major depressive disorder), recurrent episode, moderate (H) 05/28/2022 Priority: Medium Generalized anxiety disorder with panic attacks 05/28/2022 Priority: Medium Alcohol use disorder in remission 11/13/2021 Priority: Medium Alcohol withdrawal seizure with complication (H) 11/13/2021 Priority: Medium Elevated blood pressure reading without diagnosis of hypertension 09/03/2017 Priority: Medium Controlled substance agreement signed 01/20/2014 Priority: Medium Patient is followed by Azra Shine NP, MACHINERY CLEANER for ongoing prescription of a controlled medicine. [...] for #28. Contact provider via phone or [employer], INChart in 2 weeks for diazepam refill (or [...] or call after hours crisis line at [phone] or [phone]. [place] Crisis Text Line. Text [place] to [address]214 or Suicide LifeLine Chat: suicidepreventionlifeline.org/chat Schedule an appointment with me in 4 weeks or sooner as needed. Call [facility] [phone] to schedule. Follow up with primary care provider as planned or for acute medical concerns. Call the psychiatric nurse line with medication questions or concerns at [phone]. BTC Trip may be used to communicate with your provider, but this is not intended to be used for emergencies. Patient Education: Medication side effects and alternatives reviewed. Health promotion activities recommended and reviewed today. All questions addressed. Education and counseling completed regarding risks and benefitsof medications and psychotherapy options. Consent provided by patient/guardian Call the psychiatric nurse line with medication questions or concerns at [phone]. MyChart may be used to communicate with [...] keep place and cannot replace lost scripts. Medlineplus.gov is information for patients. It is run [...] is advised that I will not prescribe supervisor intermediates/high dose benzodiazepine due to risk in addition [...] pressure. Community Resources: National Suicide Prevention Lifeline: 259.425.1151 (TTY: 327.364.5263). Call anytime for help. (www.suicidepreventionlifeline.org) National [place] on Mental Illness (www.jason.org): 270.150.3570 or 469-777-1607. Mental Health Association (www.mentalhealth.org): 189.118.7088 or 377-869-8534. [place] Crisis Text Line: Text [place] to 901398 Suicide LifeLine Chat: suicidepreventionlifeline.org/chat Administrative Billing: Level of Medical Decision Making: - At least 1 chronic problem that is not stable - Engaged in prescription drug management during visit (discussed any medication benefits, side effects, alternatives, etc.) Patient Status: [facility]PS MD/DO/MACHINERY CLEANER/PA providers offer care a specialty service for Primary Care Providers in the [facility] that seek to optimize psychotropic medications for unstable patients. Once medications havebeen optimized, our providers discharge the patient back to the referring Primary Care Provider forongoing medication management. This type of system allows our providers to serve a high volume of patients. Patient will continue to be seen for ongoing consultation and stabilization. Signed: OBED Nguyen, WEB PROJECT MANAGER, PMHNP- Collaborative Care Psychiatry Service ([facility]) [facility] Chart documentation done in part with [employer] Voice Recognition software. Although reviewed after completion, some word and grammatical errors may remain. * Mattie Tellez APRN CNP - 12/26/2023 11:30 AM CDT Virtual Visit Details Type of service: Video Visit Video Start Time: 11:33 AM Video End Time:12:03 PM Originating Location (pt. Location): Home Distant Location (provider location): Off-site Platform used for Video Visit: [facility] documented in this encounter Nursing Notes * Dami Kelley - 12/26/2023 11:30 AM CDT Current patient location: [address] [place] [id number] Is the patient currently in the state of [place]? YES Visit mode:VIDEO If the visit is dropped, the patient can be reconnected by: VIDEO VISIT: Text to cell phone: Telephone Information: Will anyone else be joining the visit? NO (If patient encounters technical issues they should call [phone] :[phone]) How would you like to obtain your AVS? MyChart Are changes needed to the allergy or medication list? No Are refills needed on medications prescribed by this physician? NO Reason for visit: RECHECK Dami Kelley VVMatthew documented in this encounter Plan of Treatment Upcoming Encounters Date Type Department Care Team (Late st Contact Info) Description 04/06/2024 7:30 AM CDT Virtual Visit [facility] [address] [place] [address] [address] [place] [address] Lexi Farnsworth, GYMNASTICS INSTRUCTOR [address] [place], [place] [address] 04/06/2024 8:00 AM CDT Virtual Visit [facility] [address] [place] [address] [address] [place] [phone] Mattie Tellez APRN HAND EDGE BANDER [address] [place], [place] [address] documented as of this encounter Visit Diagnoses Diagnosis Generalized anxiety disorder with panic attacks- Primary Attention deficit hyperactivity disorder (ADHD), unspecified ADHD type documented in this encounter Additional Health Concerns Assessment Noted Time PHQ-9 Depression Total Score: 4 12/11/19 23 7:53 AM CDT documented as of this encounter Care Teams Commissary Assistant Relationship Specialty Start Date End Date Shannan Malcolm CNP [address] [place] [address] [id number] PCP - General Nurse Practitioner - Family 07/09/22 Shannan Malcolm CNP [address] [place] [address] Assigned PCP 04/07/22 Mattie Tellez APRN HAND EDGE BANDER [address] [place], [place] 2[address] Assigned Behavioral Health Provider 09/22/22 documented as of this encounter
--- OUTSIDE RECORDS SUMMARY | 2024-04-04 18:43 | XMS_ITS | Encounter Summary ---
Author Organization [place] Address [facility] [place] [address] Care Team Providers Care Post Tensioning Ironworker Helper Name Role Phone Shannan Malcolm CNP Unavailable [phone] Shannan Malcolm CNP Primary Care Provider [phone] Mattie Tellez APRN YOGA INSTRUCTOR Unavailable [phone] Reason for Visit * Reason Comments RECHECK Encounter Details Date Type Department Care Team (Latest Contact Info) Description 01/27/2024 8:00 AM CDT Virtual Visit [facility] Mental Health & Addiction [facility] [address] [place] [address] [address] [place] [address] Mattie Tellez, ROSEMARIE YOGA INSTRUCTOR [address] [place], [place] [address] Generalized anxiety disorder with panic attacks (Primary Dx); PTSD (post-traumatic stress disorder); Alcohol use disorder in remission; MDD (major depressive disorder), recurrent episode, mild (H); Attention deficit hyperactivity disorder (ADHD), predominantly inattentive type Social History Tobacco Use Types Packs/Day [...] on file 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 Gender Identity Female 02/08/2022 7:17 AM CDT Sexual Orientation Choose not to disclose 2021 7:17 AM CDT documented as of this encounter Last Filed Vital Signs Vital Sign Reading Time Taken Comments Blood Pressure - - Pulse - - Temperature - - Respiratory Rate - - Oxygen Saturation - - Inhaled Oxygen Concentration - - Weight 82.1 kg (181 lb) 01/27/2024 7:56 AM CDT Height 157.5 cm (5' 2) 01/27/2024 7:56 AM CDT Body Mass Index 33.11 01/27/2024 7:56 AM CDT documented in this encounter Patient Instructions * Patient Instructions* Mattie Tellez APRN YOGA INSTRUCTOR - 01/27/2024 8:00 AM CDT For crisis resources, please see the information at the end of this document Thank you for coming to the [facility]. TREATMENT PLAN: Medications: DISCONTINUE mirtazapine. START clonidine 0.1 mg at [...] 4 weeks or sooner as needed. Call [facility] [phone] to schedule. Follow up with primary care provider as planned or for acute medical concerns. Call the psychiatric nurse line with medication questions or concerns at [phone]. MyChart may be used to communicate with [...] patientis advised that I will not prescribe ferry terminal agent/high dose benzodiazepine due to risk in addition [...] cardiovascular risks, increased blood pressure. Financial Assistance [phone] WORKING OUT WORKS Billing [phone] Central Billing Office, ealth: [phone] [place] [facility] [id number] Medical Records [phone] [place] Patient Bill of Rights [email or web address] MENTAL HEALTH CRISIS RESOURCES: For a emergency help, please call 911 or go to the nearest Emergency Department. Emergency Walk-In Options: [facility] [place] [facility] ([place]): [phone] - Specialized mental health emergency area designed to be [facility] ([place]): [phone] [facility] Acute Psychiatry Services ([place]): [phone] [facility]): [phone] [facility] Crisis Information: Karen: [phone] Endy: [phone] Richy HEAD) - Adult: [phone] Child: [phone] Jeff - Adult: [phone] Child: [phone] Miller: [phone] List of all [facility] resources: https://ma.[facility]/dhs/gcgvto-sr-zemhk/adults/health-care/mental-health/resources/cr therese-contacts.jsp National Crisis Information: National Suicide & Crisis Lifeline: Call 588 For online chat options, visit https://suicidepreventionPlaylogicline.org/chat/ Poison Control Center: Poison Control Center: Trans Lifeline: - Hotline for transgender people of all ages The Juan Project: - Hotline for LGBT youth For Non-Emergency Support: Fast Tracker: Mental Health & Substance Use Disorder Resources - https://www.fasttrackermn.org/ Again thank you for choosing [facility] and please let us know how [...] call your pharmacy. You can also call [facility]'s Behavioral Access at , Saturday to Saturday, [...] your health care provider. Copyright ?? 2021 [place] [facility]. All rights reserved. HealthyTweet [id number] - 05/31. documented in this encounter Progress Notes * Mattie Tellez APRN CNP - 01/27/2024 8:00 AM CDT Images from the original note [...] Shannan Malcolm CNP Therapist: none currently The [facility] psychiatry providers act as a specialty service for Primary Care Providers in the [facility] who seek to optimize medications for unstable patients. Once medications have been optimized, [facility] providers discharge the patient back to the referring Primary Care Provider for ongoing medication management. This type of system allows [facility] to serve a high volume of patients. Patient Identification: Patient is a 38 year old, in a relationship or White or female who presents for return visit with wy. Patient prefers to be called: Melisa. 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 RECORDS AVAILABLE FOR REVIEW: EHR records through [employer] . Interim History: I last saw Skylar Santillan for outpatient psychiatry Return Visit 4 weeks ago on 12/26/23. During that appointment, we trialed move to diazepam from clonazepam, and continued fluoxetine 60 mg, focalin XR 15 mg / IR 5 mg in afternoon, mirtazapine 7.5 mg at bedtime. In interim, patient reported issue with diazepam after 2 week trial as felt Is not working out. It???s not helping with the anxiety. I almost feel like it???s making me more anxious. Sent past rx for lorazepam. Patient reported refill needed and again reviewed controlled substance policy that does not allow early refill. She reports today taking 2x lorazepam (for 1 mg dose) at a time to feel effective so was out early (Just n ot doing what it normally does) . Reports 1 day without medication and has had some increase in anxiety but overall feels tolerating ok. She does note improvement in anxiety with her ADHD medication. Anxiety remains high, attributes a lot to high workload and ongoing family stressors with daughter's behavior and partner's ongoing alcohol use. Patient reports ongoing sobriety - today is 657 days without ETOH which she is rightfully proud of. She does at times feel like wanting to stop all the medications together, questions her sobriety if needing benzodiazepine, especially as tolerance has built up. She denies significant depression, no SI/SIB/HI, psychosis, seamus. Her sleep is well managed with mirtazapine but she has had significant increase in appetite and ongoing weight gain which isno longer tolerable. Initial Impression: 12/26/23: At last appointment 6 weeks ago, [...] all other medications. Patient agreeable to plan. 11/14/23: At last appointment, we increased to [...] Current Outpatient Medications Medication Sig Dispense Refill dexmethylphenidate (FOCALIN XR) 10 MG 24 hr [...] mouth 2 times daily as needed (panic) 30tablet 0 mirtazapine (REMERON) 7.5 MG tablet Take 1 tablet (7.5 mg) by mouth at bedtime 90 tablet 0 No current facility-administered medications for this visit. Side effects: Yes: increased appetite and weight gain from clonidine The [place] Prescription Monitoring Program has been reviewed and there are no concerns about diversionary activity for controlled substances at this time. Focalin ER 5 mg (#30 filled 01/23/24) Focalin ER 10 mg (#30 filled 01/20/2024) Lorazepam 0.5 mg #30 filled 01/13/24, per patient filled 01/10/24 ([place] also notes 01/10/24, PDMP and call to pharmacy reported 01/13/24) Focalin 2.5 mg (#60) filled 01/08/24 Psychiatric ROS: Skylar Santillan reports mood has been: Ok, working a lot' Depression has been: appetite change or significant weight loss / gain, sleep changes (insomnia or hypersomnia), fatigue of loss of energy, worthlessness or excessive guilt, and difficulty concentrating or indecisiveness self rates as still good, have life stressors - don't think having a lot of depression/ 10, where 0 is none at all and 10 being severe depression. SI/SIB/HI:denies all Anxiety has been: excessive worry, difficult to control, restlessness / feeling keyed up, easily fatigued, difficulty concentrating or mind going blank, irritability, and sleep disturbances (difficulty falling / staying asleep, or restless / unsatisfying) Sleep has been: good, out out. Energy has been: really groggy when waking up, but is very tired from work as well. Appetite has been: low during day but after mirtazapine does feel very hungry and notes weight gainsince being on med. Seamus sxs: none Psychosis sxs: denies ADHD/ADD sxs: best improvement with Focalin XR and afternoon augment PTSD sxs: exaggerated negative beliefs about self, others, world and negative emotional state, problems concentrating and sleep disturbances, nightmares. PHQ2 (0) and GAD2 (2) scores were reviewed today. PHQ-9 scores: 09/04/2022 12:29 PM 12/10/2022 7:53 AM 01/01/2024 10:47 AM PHQ-9 SCORE PHQ-9 Total Score MyChart 25 (Severe depression) 4 (Minimal depression) PHQ-9 Total Score 25 4 6 CATHY-7 scores: 05/30/2023 1:39 PM 08/28/2023 9:41 AM 01/01/2024 10:47 AM CATHY-7 SCORE Total Score 9 (mild anxiety) 11 (moderate anxiety) Total Score 9 11 13 Current stressors include: Parenting Stress, Symptoms and Occupational Difficulties, relationship difficulties, new job Coping mechanisms and supports include: Family, Club Recovery, AA, therapy Vital Signs: Ht 1.575 m (5' 2) Wt 82.1 kg (181 lb) BMI 33.11 kg/m?? Review of Systems: 10 systems (general, [...] Status Exam: Alertness: alert and oriented Appearance: casually groomed Behavior/Demeanor: cooperative and pleasant, with good [...] Denies auditory hallucinations and visual hallucinations Insight: adequate Judgment: intact Cognition: does appear grossly intact; formal cognitive testing was not done Recent and Remote Memory: Intact to interview. Not formally assessed. No amnesia. Attention Span and Concentration: Intact to interview. Fund of Knowledge: appropriate Gait and Station: [...] Patient is followed by Azra Shine NP, SILK SCREEN FRAME ASSEMBLER for ongoing prescription of a controlled medicine. [...] or call after hours crisis line at [phone] or [phone]. [place] Crisis Text Line. Text [place] to [address] or Suicide LifeLine Chat: suicidepreventionPlaylogicline.org/chat Schedule an appointment with me in 4 weeks or sooner as needed. Call [facility] [phone] to schedule. Follow up with primary care provider as planned or for acute medical concerns. Call the psychiatric nurse line with medication questions or concerns at [phone]. Sift Sciencehart may be used to communicate with your provider, but this is not intended to be used for emergencies. Patient Education: Medication side effects and alternatives reviewed. Health promotion activities recommended and reviewed today. All questions addressed. Education and counseling completed regarding risks and benefitsof medications and psychotherapy options. Consent provided by patient/guardian Call the psychiatric nurse line with medication questions or concerns at [phone]. MyChart may be used to communicate with your provider, but this is not intended to be used for emergencies. SEROTONIN SYNDROME: Discussed risks of Serotonin syndrome (ie, serotonin toxicity) which is a potentially life-threatening condition associated with increased serotonergic activity in the central nervous system (MATERIAL MOVERS). It is seen with therapeutic medication use, inadvertent interactions between drugs, and intentional self-poisoning. Serotonin syndrome may involve a spectrum of clinical findings, which often include mental status changes, autonomic hyperactivity, and neuromuscular abnormalities. STIMULANT THERAPY: Side effects discussed including but [...] keep place and cannot replace lost scripts. Adylitica.gov is information for patients. It is run [...] is advised that I will not prescribe fpc/high dose benzodiazepine due to risk in addition [...] pressure. Community Resources: National Suicide Prevention Lifeline: 290.697.5295 (TTY: 920.450.4462). Call anytime for help. (www.suicidepreventionlifeline.org) National [place] on Mental Illness (www.jason.org): 551.269.4981 or 121-522-8566. Mental Health Association (www.mentalhealth.org): 881.374.9238 or 371-673-5864. [place] Crisis Text Line: Text [place] to [address]72 Suicide LifeLine Chat: suicidepreFootballScoutline.org/chat Administrative Billing: Level of Medical Decision Making: - At least 1 chronic problem that is not stable - Engaged in prescription drug management during visit (discussed any medication benefits, side effects, alternatives, etc.) Patient Status: CCPS MD/DO/SILK SCREEN FRAME ASSEMBLER/PA providers offer care a specialty service for Primary Care Providers in the [facility] that seek to optimize psychotropic medications for unstable patients. Once medications havebeen optimized, our providers discharge the patient back to the referring Primary Care Provider forongoing medication management. This type of system allows our providers to serve a high volume of patients. Patient will continue to be seen for ongoing consultation and stabilization. Signed: Mattie Tellez, MSN, TAIL BOARD MAN, PMHNP- Collaborative Care Psychiatry Service (CCPS) [facility] Chart documentation done in part with [employer] Voice Recognition software. Although reviewed after completion, some word and grammatical errors may remain. * Mattie Tellez APRN CNP - 01/27/2024 8:00 AM CDT Virtual Visit Details Type of service: Video Visit Video Start Time: 8:05 AM Video End Time:8:30 AM Originating Location (pt. Location): Home Distant Location (provider location): On-site Platform used for Video Visit: Akua documented in this encounter Nursing Notes * Leonardo Villegas - 01/27/2024 8:00 AM CDT Current patient location: [address] [place] [address] Is the patient currently in the state of [place]? YES Visit mode:VIDEO If the visit is dropped, the patient can be reconnected by: VIDEO VISIT: Text to cell phone: Telephone Information: Will anyone else be joining the visit? NO (If patient encounters technical issues they should call [phone] :[phone]) How would you like to obtain your AVS? MyChart Are changes needed to the allergy or medication list? No Are refills needed on medications prescribed by this physician? NO Rooming Documentation: Questionnaire(s) completed Reason for visit: DREW Villegas VVF documented in this encounter Plan of Treatment Upcoming Encounters Date Type Department Care Team (Late st Contact Info) Description 04/06/2024 7:30 AM CDT Virtual Visit [facility] Mental Health & Addiction [facility] [address] [place] [address] Lexi Farnsworth, [facility] [address] [place] [id number] 04/06/2024 8:00 AM CDT Virtual Visit [facility] Mental Health & Addiction [facility] [address] [place] [phone] Mattie Tellez APRN YOGA INSTRUCTOR [address] [place] [address] documented as of this encounter Visit Diagnoses Diagnosis Generalized anxiety disorder with panic attacks- Primary PTSD (post-traumatic stress disorder) Posttraumatic stress disorder Alcohol use disorder in remission MDD (major depressive disorder), recurrent episode, mild (H) Major depressive disorder, recurrent episode, mild Attention deficit hyperactivity disorder (ADHD), predominantly inattentive type documented in this encounter Additional Health Concerns Assessment Noted Time PHQ-9 Depression Total Score: 6 01/01/20 24 10:48 AM CDT documented as of this encounter Care Teams Post Tensioning Ironworker Helper Relationship Specialty Start Date End Date Shannan Malcolm CNP [address] [place] [address] PCP - General Nurse Practitioner - Family 07/09/22 Shannan Malcolm CNP [address] [place] [address] Assigned PCP 04/07/22 Mattie Tellez APRN YOGA INSTRUCTOR [address] [place] [address] Assigned Behavioral Health Provider 09/22/22 documented as of this encounter
--- OUTSIDE RECORDS SUMMARY | 2024-04-04 18:43 | XMS_ITS | Encounter Summary ---
Author Organization [place] Address [facility], [id number] [place] [address] Care Team Providers Care Sql Programmer Analyst Name Role Phone Shannan Malcolm CNP Unavailable [phone] Shannan Malcolm CNP Primary Care Provider [phone] Mattie Tellez APRN AIRPORT REPRESENTATIVE Unavailable [phone] Encounter Details Date Type Department Care Team (Late st Contact Info) Description 01/10/2024 Orders Only [facility] Mental Health & Addiction [facility] [address] [place] [address] Mattie Tellez APRN AIRPORT REPRESENTATIVE [address] [facility] [address] [place], [place] [address] CATHY (generalized anxiety disorder) Social History Tobacco Use Types Packs/Day Years [...] on file 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 Gender Identity Female 02/08/2022 7:17 AM CDT Sexual Orientation Choose not to disclose 2021 7:17 AM CDT documented as of this encounter Plan of Treatment Upcoming Encounters Date Type Department Care Team (Late st Contact Info) Description 04/06/2024 7:30 AM CDT Virtual Visit [facility] Mental Health & Addiction [facility] [address] [place] [address] Lexi Farnsworth, [facility] [address] [place], [place] [address] 04/06/2024 8:00 AM CDT Virtual Visit [facility] Mental Health & Addiction [facility] [address] [place] [phone] Mattie Tellez APRN AIRPORT REPRESENTATIVE [address] [place], [place] [address] documented as of this encounter Visit Diagnoses Diagnosis CATHY (generalized anxiety disorder) Generalized anxiety disorder documented in this encounter Additional Health Concerns Assessment Noted Time PHQ-9 Depression Total Score: 6 01/01/20 24 10:48 AM CDT documented as of this encounter Care Teams Sql Programmer Analyst Relationship Specialty Start Date End Date Shannan Malcolm CNP [address] [place] [address] PCP - General Nurse Practitioner - Family 07/09/22 Shannan Malcolm CNP [address] [place] [address] Assigned PCP 04/07/22 Mattie Tellez APRN AIRPORT REPRESENTATIVE [address] [place], [place] [address] Assigned Behavioral Health Provider 09/22/22 documented as of this encounter
--- OUTSIDE RECORDS SUMMARY | 2024-04-04 18:43 | XMS_ITS | Encounter Summary ---
Author Organization [place] Address [address] [place] [address] Care Team Providers Care Glove Sewer Name Role Phone Shannan Malcolm CNP Unavailable [phone] Shannan Malcolm CNP Primary Care Provider [phone] Mattie Tellez APRN MACHINE CLERICAL VERIFIER Unavailable [phone] Reason for Visit * Reason Onset Date Comments SIDE EFFECTS 01/21/2023 Grinding and isaiah nching jaw Encounter Details Date Type Department Care Team (Late st Contact Info) Description 01/21/2023 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 Added to her pharmacy list. Yolanda Ahn RN on 01/23/2023 at 8:50 AM documented in this encounter Plan of Treatment Upcoming Encounters Date Type Department Care Team (Late st Contact Info) Description 04/06/2024 7:30 AM CDT Virtual Visit [facility] Mental Health & Addiction [facility] [address] [place] [address] [address] [place] [address] Lexi Farnsworth, EMERGENCY DEPARTMENT DIRECTOR [address] [place], [place] [address] 04/06/2024 8:00 AM CDT Virtual Visit [facility] Mental Health & Addiction [facility] [address] [address] [place] [phone] Mattie Tellez APRN [facility] [address] [place], [place] [address] documented as of this encounter Visit Diagnoses Not on filedocumented in this encounter Additional Health Concerns Assessment Noted Time PHQ-9 Depression Total Score: 4 12/11/19 23 7:53 AM CDT documented as of this encounter Care Teams Glove Sewer Relationship Specialty Start Date End Date Shannan Malcolm CNP [address] [place] [id number] PCP - General Nurse Practitioner - Family 07/09/22 Shannan Malcolm CNP [address] [place] [id number] Assigned PCP 04/07/22 Mattie Tellez APRN MACHINE CLERICAL VERIFIER [address] [place] [address] Assigned Behavioral Health Provider 09/22/22 documented as of this encounter
--- OUTSIDE RECORDS SUMMARY | 2024-04-04 18:43 | XMS_ITS | Encounter Summary ---
Author Organization [place] Address [address] [place] [address] Care Team Providers Care Test And Research Reactor Operator Name Role Phone Shannan Malcolm CNP Unavailable [phone] Shannan Malcolm CNP Primary Care Provider [phone] Mattie Tellez APRN DIGITAL PHOTOGRAPHER Unavailable [phone] Reason for Visit * Reason Onset Date Comments Refill Request 04/10/2023 Encounter Details Date Type Department Care Team (Late st Contact Info) Description 04/10/2023 MyC Refill [facility] [address] [place] [address] Mattie Tellez, ROSEMARIE DIGITAL PHOTOGRAPHER [address] [place] [address] Refill Request Social History Tobacco [...] Answer Date Recorded PHQ-2 Score 0 12/10/2022 Adolescent Education Answer Date Record ed Getting School Help Needed Not on file 03/01 Comments No Sex and Gender Information Value Date Recorded Sex Assigned at Not on file Legal Sex Female 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 Have a great day! Shannon Aggarwal RN. documented in this encounter Plan of Treatment Upcoming Encounters Date Type Department Care Team (Late st Contact Info) Description 04/06/2024 7:30 AM CDT Virtual Visit [facility] & Addiction [facility] [address] [place] [address] [address] [place] [address] Lexi Farnsworth, DEPARTMENT COORDINATOR [address] [place], [place] [address] 04/06/2024 8:00 AM CDT Virtual Visit [facility] [address] [place] [address] Mattie Tellez APRN [facility] [address] [place], [place] [address] documented as of this encounter Visit Diagnoses Diagnosis CATHY (generalized anxiety disorder) Generalized anxiety disorder documented in this encounter Additional Health Concerns Assessment Noted Time PHQ-9 Depression Total Score: 4 12/11/19 23 7:53 AM CDT documented as of this encounter Care Teams Test And Research Reactor Operator Relationship Specialty Start Date End Date Shannan Malcolm CNP [address] [place] [address] [id number] PCP - General Nurse Practitioner - Family 07/09/22 Shannan Malcolm CNP [address] [place] [address] [id number] Assigned PCP 04/07/22 Mattie Tellez APRN DIGITAL PHOTOGRAPHER [address] [place] [address] Assigned Behavioral Health Provider 09/22/22 documented as of this encounter
--- OUTSIDE RECORDS SUMMARY | 2024-04-04 18:43 | XMS_ITS | Encounter Summary ---
Author Organization [facility] [place] Address [facility] [place] [address] Care Team Providers Care Clinical Research Spec Name Role Phone Shannan Malcolm SMALL BUSINESS CONSULTANT Unavailable [phone] Shannan Malcolm CNP Primary Care Provider [phone] Mattie Tellez APRN SMALL BUSINESS CONSULTANT Unavailable [phone] Encounter Details Date Type Department Care Team ([facility] Contact Info) Description 04/11/2023 Telephone [facility]ake [address] [place] [phone] Generic, Behavioral Intake, Social History Tobacco Use Types Packs/Day Years [...] on file 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 Reviewed documentation from [facility] coordinator. Pharmacy won't cover 2, 10mg capsules of prozac and isrequesting 1, 20mg capsule. Routing to provider to advise. Treatment Plan: START fluoxetine 10 mg every day for 1 week. Week 2: INCREASE to fluoxetine 20 mg (2x 10 mg capsules) every day. Script sent for #60. CONTINUE methylphenidate (Concerta) 36 mg every day. Script sent for #30. START methylphenidate IR 5-10 mg (1/2-1 tablet) as needed in the afternoon for ADHD. Script sent for #30. CONTINUE lorazepam 0.5 mg as needed only for severe anxiety. Script sent for #15. Not to be refilled before 05/03. Continue all other medications per primary care provider. Continue therapy with new provider as planned. Safety plan reviewed. To the Emergency Department as needed or call after hours crisis line at [phone] or [phone]. [place] Crisis Text Line. Text [place] to 533378 or Suicide LifeLine Chat: suicidepreventionlifeline.org/chat Schedule an appointment with me in 3 weeks or sooner as needed. Call [facility] [phone] to schedule. Follow up with primary care provider as planned or for acute medical concerns. Call the psychiatric nurse line with medication questions or concerns at [phone]. StarSightingshart may be used to communicate with your provider, but this is not intended to be used for emergencies. * Telephone Encounter - Marcos Velasco - 04/11/2023 3:15 PM CDT Reason for call: Other Patient called regarding (reason for call): prescription Additional comments: [facility] called regarding an issue with a prescription they received today. The fluoxetine won't be covered for 2 10 MG capsules a day and they ask that a prescription be sent for 1 20 mg capsule. Phone number to reach pharmacy: Other phone number: [phone] Best Time: MARIO Can we leave a detailed message on this number? Not Applicable Travel screening: Not Applicable documented in this encounter Plan of Treatment Upcoming Encounters Date Type Department Care Team (Late st Contact Info) Description 04/06/2024 7:30 AM CDT Virtual Visit [facility] [address] [place] [address] Lexi Farnsworth, [facility] [address] [place] [address] 04/06/2024 8:00 AM CDT Virtual Visit [facility] [address] [place] [phone] Mattie Tellez APRN SMALL BUSINESS CONSULTANT [address] [place], [place] [address] documented as of this encounter Visit Diagnoses Not on filedocumented in this encounter Additional Health Concerns Assessment Noted Time PHQ-9 Depression Total Score: 4 12/11/19 7:53 AM CDT documented as of this encounter Care Teams Clinical Research Spec Relationship Specialty Start Date End Date Shannan Malcolm CNP [address] [place] [address] PCP - General Nurse Practitioner - Family 07/09/22 Shannan Malcolm CNP [address] [place] [address] Assigned PCP 04/07/22 Mattie Tellez APRN SMALL BUSINESS CONSULTANT [address] [place], [place] 4086[address] Assigned Behavioral Health Provider 09/22/22 documented as of this encounter
--- OUTSIDE RECORDS SUMMARY | 2024-04-04 18:43 | XMS_ITS | Encounter Summary ---
Author Organization [place] Address [address] [place] [address] Care Team Providers Care Engine Installer Name Role Phone Shannan Malcolm CNP Unavailable [phone] Shannan Malcolm CNP Primary Care Provider [phone] Mattie Tellez APRN CLUB ROOM ATTENDANT Unavailable [phone] Reason for Visit * Reason Onset Date Comments Medication Request 12/01/2023 Increase dexm ethylphenidate (FOCALIN XR) Encounter Details Date Type Department Care Team (Late st Contact Info) Description 12/01/2023 MyC Medical Advice [facility] Mental Health & [facility] [address] [place] [address] [address] [place] [address] Mattie Tellez APRN CLUB ROOM ATTENDANT [address] [place] [address] Medication Request (Increase dexmethylphen... 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 She is wondering about getting an increase? Last visit: CONTINUE fluoxetine 60 mg (40 mg + 20 mg) every day. Scripts sent for #90. CONTINUE Focalin XR 10 mg every day. Script sent + 1 refill when due. CONTINUE focalin 5 mg every day in the afternoon. Script sent + 1 refill when due. CONTINUE clonazepam 0.5 mg QAM and 1/2 - 1 tablet as needed in afternoon only for severe anxiety. Script sent for #60 + 1 refill. No early refills. Continue to use sparingly. CONTINUE mirtazapine 7.5 mg at bedtime. Script sent for #90. Yolanda Ahn RN on 12/02/2023 at 8:56 AM documented in this encounter Plan of Treatment Upcoming Encounters Date Type Department Care Team (Late st Contact Info) Description 04/06/2024 7:30 AM CDT Virtual Visit [facility] Mental Health & Addiction [facility] [address] [place] [address] [address] [place] [address] Lexi Farnsworth, DIRECTOR TEEN POST [address] [place] [address] 04/06/2024 8:00 AM CDT Virtual Visit [facility] Mental Health & Addiction [facility] [address] [address] [place] [phone] Mattie Tellez APRN CLUB ROOM ATTENDANT [address] [place] [address] documented as of this encounter Visit Diagnoses Not on filedocumented in this encounter Additional Health Concerns Assessment Noted Time PHQ-9 Depression Total Score: 4 12/11/19 23 7:53 AM CDT documented as of this encounter Care Teams Engine Installer Relationship Specialty Start Date End Date Shannan Malcolm CNP [facility] [place] [address] PCP - General Nurse Practitioner - Family 07/09/22 Shannan Malcolm CNP [address] [place] [address] Assigned PCP 04/07/22 Mattie Tellez APRN CNP [address] [place] [address] Assigned Behavioral Health Provider 09/22/22 documented as of this encounter
--- OUTSIDE RECORDS SUMMARY | 2024-04-04 18:43 | XMS_ITS | Encounter Summary ---
Author Organization [facility] Address [address] [place] [address]. [place] [address] Care Team Providers Care Campaign Marketing Specialist Name Role Phone Shannan Malcolm CNP Unavailable [phone] Shannan Malcolm CNP Primary Care Provider [phone] Mattie Tellez APRN ICT SUPPORT AND TEST ENGINEERS Unavailable [phone] Reason for Visit * Reason Onset Date Comments Early refill request 10/10/2023 clonazePAM (KLONOPIN) 0.5 MG tablet Encounter Details Date Type Department Care Team (Late st Contact Info) Description 10/10/2023 [facility] [address] [place] [address] [address] [place] [address] Mattie Tellez, ROSEMARIE ICT SUPPORT AND TEST ENGINEERS [address] [place] [address] Early refill request (clonazePAM (KLONOPIN... 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 Will message patient. 2) Phoned [facility] in [place]. Gave verbal order Ok for early fill per Mattie Tellez CNPPharmacy geological technician verbalized understanding and stated that the prescription could be filled today(10/10/23). ED CASTRO RN on 10/10/2023 at 11:14 AM. * Telephone Encounter - Ed Castro RN - 10/10/2023 9:59 AM CDT The patient has a refill for Clonazepam on file, she would need approval from provider to fill early if pharmacy and insurance also approve early refill. ED CASTRO RN on 10/10/2023 at 10:00 AM * Telephone Encounter - Ed Castro RN - 10/10/2023 9:20 AM CDT Images from the original note were not included. Reviewed patient's LX Enterprisest message. She is requesting an early refill of Clonazepam. ED CASTRO RN on 10/10/2023 at 9:28 AM documented in this encounter Plan of Treatment Upcoming Encounters Date Type Department Care Team (Late st Contact Info) Description 04/06/2024 7:30 AM CDT Virtual Visit [facility] [address] [place] [address] Lexi Farnsworth, [facility] [address] [place] [address] 04/06/2024 8:00 AM CDT Virtual Visit [facility] & [facility] [address] [place] [phone] Mattie Tellez APRN ICT SUPPORT AND TEST ENGINEERS [address] [place] [address] documented as of this encounter Visit Diagnoses Not on filedocumented in this encounter Additional Health Concerns Assessment Noted Time PHQ-9 Depression Total Score: 4 12/11/19 23 7:53 AM CDT documented as of this encounter Care Teams Campaign Marketing Specialist Relationship Specialty Start Date End Date Shannan Malcolm CNP [address] [place] [address] PCP - General Nurse Practitioner - Family 07/09/22 Shannan Malcolm CNP [address] [place] [address] Assigned PCP 04/07/22 Mattie Tellez APRN ICT SUPPORT AND TEST ENGINEERS [address] [place] [address] Assigned Behavioral Health Provider 09/22/22 documented as of this encounter
--- OUTSIDE RECORDS SUMMARY | 2024-04-04 18:43 | XMS_ITS | Encounter Summary ---
Author Organization [facility] Address [address] [place] [address] Care Team Providers Care Communications Maintainer Name Role Phone Shannan Malcolm CNP Unavailable [phone] Shannan Malcolm CNP Primary Care Provider [phone] Mattie Tellez APRN MANAGEMENT LEAD Unavailable [phone] Reason for Visit * Reason Onset Date Comments Medication not working 01/10/2024 Diazepam Encounter Details Date Type Department Care Team (Late st Contact Info) Description 01/10/2024 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 Yes Name of the pharmacy and phone number for the current request: N/A Name of the medication requested: Ativan Other request: Pt is requesting to be switch back to previous medication Can we leave a detailed message on this number? YES Phone number patient can be reached at: Home number on file [phone] (home) Best Time: Anytime Call taken on 01/10/2024 at 2:34 PM by Josafat Rose * Telephone Encounter - Nadira Ramos RN - 01/10/2024 2:33 PM CDT 1) Reviewed patient's [employer] message. She reports that diazepam is not working and wants to go back to Ativan or Clonazepam. Impression: Skylar Santillan is a 38 year [...] for #28. Contact provider via phone or MyChart in 2 weeks for diazepam refill (or [...] 7.5 mg at bedtime. No script needed. documented in this encounter Plan of Treatment Upcoming Encounters Date Type Department Care Team (Late st Contact Info) Description 04/06/2024 7:30 AM CDT Virtual Visit [facility] Mental Health & Addiction [facility] [address] [place] [address] [address] [place] [address] Lexi Farnsworth, VETERINARY SURGERY TECHNOLOGIST [address] [place] [address] 04/06/2024 8:00 AM CDT Virtual Visit [facility] Mental Health & Addiction [facility] [address] [address] [place] [phone] Mattie Tellez, ROSEMARIE MANAGEMENT LEAD [address] [place] [address] documented as of this encounter Visit Diagnoses Not on filedocumented in this encounter Additional Health Concerns Assessment Noted Time PHQ-9 Depression Total Score: 6 01/01/20 24 10:48 AM CDT documented as of this encounter Care Teams Communications Maintainer Relationship Specialty Start Date End Date Shannan Malcolm CNP [address] [place] [address] PCP - General Nurse Practitioner - Family 07/09/22 Shannan Malcolm CNP [address] [place] [address] Assigned PCP 04/07/22 Mattie Tellez APRN CNP [address] [place] [address] Assigned Behavioral Health Provider 09/22/22 documented as of this encounter
--- OUTSIDE RECORDS SUMMARY | 2024-04-04 18:43 | XMS_ITS | Encounter Summary ---
Author Organization [facility] Address [address] [place] [address] Care Team Providers Care Secondary Special Education Teacher Name Role Phone Shannan Malcolm CNP Unavailable [phone] Shannan Malcolm CNP Primary Care Provider [phone] Mattie Tellez APRN WALL WASHER Unavailable [phone] Reason for Visit * Reason Onset Date Comments Medication Request 10/26/2023 an afternoon ADHD medication Encounter Details Date Type Department Care Team (Late st Contact Info) Description 10/26/2023 [facility] Advice [facility] Mental Health & Addiction [facility] [address] [address] [place] [address] Mattie Tellez APRN WALL WASHER [address] [place] [address] Medication Request (an afternoon ADHD medi... 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 Please make sure to keep an eye on anxiety and sleep while restarting medication. Thank you! Mattie Tellez APRN, PMHNP- [facility] RN reviewed order history - Outpatient Medication Detail Disp Refills Start End LORENZO dexmethylphenidate (FOCALIN) 2.5 MG tablet 30 tablet 0 10/28/2023 -- No Sig - Route: Take 1-2 tablets (2.5-5 mg) by mouth daily as needed in the afternoon for ADHD. - Oral Sent to pharmacy as: Dexmethylphenidate HCl 2.5 MG Oral Tablet (FOCALIN) Class: E-Prescribe Earliest Fill Date: 10/28/2023 Order: [id number] E-Prescribing Status: Receipt confirmed by pharmacy (10/28/2023 10:32 AM CDT) Medication Administration Instructions as needed in the afternoon for ADHD. Pharmacy [facility] [place], [place] - [address] [address] RN sent a MyC message to the patient with the above information. Carlene Zavaleta RN on 10/28/2023 at 10:43 AM documented in this encounter Plan of Treatment Upcoming Encounters Date Type Department Care Team (Late st Contact Info) Description 04/06/2024 7:30 AM CDT Virtual Visit [facility] Mental Health & Addiction [facility] [address] [place] [address] Lexi Farnsworth, MEDICAL CENTER MANAGER [address] [place] [address] 04/06/2024 8:00 AM CDT Virtual Visit [facility] Mental Health & Addiction [facility] [address] [place] [phone] Mattie Tellez APRN WALL WASHER [address] [place] [address] documented as of this encounter Visit Diagnoses Not on filedocumented in this encounter Additional Health Concerns Assessment Noted Time PHQ-9 Depression Total Score: 4 12/11/19 23 7:53 AM CDT documented as of this encounter Care Teams Secondary Special Education Teacher Relationship Specialty Start Date End Date Shannan Malcolm CNP [address] [place] [id number] PCP - General Nurse Practitioner - Family 07/09/22 Shannan Malcolm CNP [address] [place] [address] Assigned PCP 04/07/22 Mattie Tellez APRN WALL WASHER [address] [place] [address] Assigned Behavioral Health Provider 09/22/22 documented as of this encounter
--- OUTSIDE RECORDS SUMMARY | 2024-04-04 18:43 | XMS_ITS | Encounter Summary ---
Author Organization [facility] Address [address] [place] [address] Care Team Providers Care Rehabilitation Services Aide Name Role Phone Shannan Malcolm CNP Unavailable [phone] Shannan Malcolm CNP Primary Care Provider [phone] Mattie Tellez APRN INTENSIVE CARE NURSE Unavailable [phone] Reason for Visit * Reason Onset Date Comments Refill Request 03/13/2023 Encounter Details Date Type Department Care Team (Late st Contact Info) Description 03/13/2023 MyC Refill [facility] Mental Health & Addiction [facility] [address] [place] [address] Mattie Tellez, [place] INTENSIVE CARE NURSE [address] [place] [address] Refill Request Social History Tobacco [...] on file 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 Gender Identity Female 02/08/2022 7:17 AM CDT Sexual Orientation Choose not to disclose 2021 7:17 AM CDT documented as of this encounter Miscellaneous Notes * Telephone Encounter - Marcos Grijalva RN - 03/14/2023 8:50 AM CDT Date of Last Office Visit: 03/07/23 Date of Next Office Visit: 04/11/23 No shows since last visit: no Cancellations since last visit: no Medication requested: LORazepam (ATIVAN) 0.5 MG tablet Date last ordered: 03/08/23 Qty: 5 Refills: 0 [place] of [place] SCREEN PRINTER HELPER?: LORazepam (ATIVAN) 0.5 MG tablet Medication last sold date: 03/09/23 Qty filled: 5 Other controlled substance on [place] SCREEN PRINTER HELPER?: yes If yes, is this a new medication?: no If yes, name of medication: na and date filled: na Lapse in medication adherence greater than 5 days?: no If yes, call patient and gather details: na Medication refill request verified as identical to current order?: yes Result of Last DAM, VPA, Li+ Level, CBC, or Carbamazepine Level (at or since last visit): N/A Last visit treatment plan: Treatment Plan: INCREASE TO methylphenidate (Concerta) 36 mg every day. Script sent for #30. CONTINUE venlafaxine 75 mg every day. Script sent for #30. HOLD lorazepam 0.5 mg as needed only for severe anxiety. No script needed. Continue all other medications per primary care provider. Continue therapy with new provider as planned. Safety plan reviewed. To the Emergency Department as needed or call after hours crisis line at [phone] or [phone]. [place] Crisis Text Line. Text [place] to 054357 or Suicide LifeLine Chat: suicidepreventionlifeline.org/chat Schedule an appointment with me in 5 weeks or sooner as needed. Call [facility] [phone] to schedule. Follow up with primary care provider as planned or for acute medical concerns. Call the psychiatric nurse line with medication questions or concerns at [phone]. MyChart may be used to communicate with your provider, but this is not intended to be used for emergencies. []Medication refilled per ???Medication Refill in Sole Tacker?? policy. [x]Medication unable to be refilled by RN due to criteria not met as indicated below: []Eligibility - not seen in the last year []Supervision - no future appointment []Compliance - no shows, cancellations or lapse in therapy []Verification - order discrepancy [x]Controlled medication []Medication not included in policy []90-day supply request []Other documented in this encounter Plan of Treatment Upcoming Encounters Date Type Department Care Team (Late st Contact Info) Description 04/06/2024 7:30 AM CDT Virtual Visit [facility] Mental Health & Addiction [facility] [address] [place] [address] [address] [place] [address] Lexi Farnsworth, [facility] [address] [place], [place] [address] 04/06/2024 8:00 AM CDT Virtual Visit [facility] Mental [facility] & Addiction [facility] [address] [place] [address] [address] [place] [address] Mattie Tellez APRN [facility] [address] [place], [place] [address] documented as of this encounter Visit Diagnoses Diagnosis CATHY (generalized anxiety disorder) Generalized anxiety disorder documented in this encounter Additional Health Concerns Assessment Noted Time PHQ-9 Depression Total Score: 4 12/11/19 23 7:53 AM CDT documented as of this encounter Care Teams Rehabilitation Services Aide Relationship Specialty Start Date End Date Shannan Malcolm CNP [address] [place] [address] [id number] PCP - General Nurse Practitioner - Family 07/09/22 Shannan Malcolm CNP [address] [place] [address] Assigned PCP 04/07/22 Mattie Tellez APRN INTENSIVE CARE NURSE [address] [place] [address] Assigned Behavioral Health Provider 09/22/22 documented as of this encounter
--- OUTSIDE RECORDS SUMMARY | 2024-04-04 18:43 | XMS_ITS | Encounter Summary ---
Author Organization [facility] Address [address] [place] [address] Care Team Providers Care Metal Wire Coating Operator Name Role Phone Shannan Malcolm CNP Unavailable [phone] Shannan Malcolm CNP Primary Care Provider [phone] Mattie Tellez APRN PUMPER HAND Unavailable [phone] Reason for Visit * Reason Onset Date Comments Prior Auth - Medication 02/07/2023 methylph enidate HCL ER, OSM, (CONCERTA) 27 MG CR tablet- [place] APPROVED Encounter Details Date Type Department Care Team (Late st Contact Info) Description 02/07/2023 Telephone [facility] Mental Health & Addiction [facility] [address] [place] [address] Mattie Tellez APRN PUMPER HAND [address] [place] [address] Prior Auth - Medication (methylphenidate HCL ER, OSM, (CONCERTA) 27 MG CR tablet- [place] APPROVED) Social History Tobacco Use Types Packs/Day Years [...] on file 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 Central Prior Authorization Team - Prior Authorization Approval Medication: METHYLPHENIDATE HCL ER 27 MG PO TB24 Authorization Effective Date: 01/13/2023 Authorization Expiration Date: 02/12/2024 Approved Dose/Quantity: 30 Reference #: Insurance Company: [employer] Non-Specialty PA's - Expected CoPay: CoPay Card Available: Financial Assistance Needed: Which Pharmacy is filling the prescription: [facility] [place], [place] - [address] Pharmacy Notified: Yes Patient Notified: Yes pharmacy will notify when ready * Telephone Encounter - Latesha Lopze - 02/12/2023 2:58 PM CDT Images from the original note were not included. Central Prior Authorization Team - PA Initiation Medication: METHYLPHENIDATE HCL ER 27 MG PO TB24 Insurance Company: [employer] Non-Specialty PA's - Pharmacy Filling the Rx: [id number] [place], [place] - [address] Filling Pharmacy Filling Pharmacy Fax: Start Date: 02/12/2023 * Telephone Encounter - Mariann Maloney RN - 02/12/2023 12:31 PM CDT RN checked with pharmacy and the patient used [facility] to flower picker a 30-day supply for $36.09. Will continue with PA for next refill. Mariann Maloney RN on 02/12/2023 at 12:32 PM * Telephone Encounter - Carlene Zavaleta RN - 02/12/2023 12:16 PM CDT Images from the original note were not included. Prior Authorization Retail Medication Request Medication/Dose: methylphenidate HCL ER, OSM, (CONCERTA) 27 MG CR tablet ICD code (if different than what is on RX): Attention deficit hyperactivity disorder (ADHD), unspecified ADHD type [F90.9] Previously Tried and Failed: Rationale: Insurance Name: Insurance ID: Pharmacy Information (if different than what is on RX) Name: Phone: Medication/Dose: methylphenidate HCL ER, OSM, (CONCERTA) 27 MG CR tablet * Telephone Encounter - Natalia Gonzalez MA - 02/07/2023 3:42 PM CDT Images from the original note were not included. Prior Authorization Retail Medication Request Medication/Dose: methylphenidate HCL ER, OSM, (CONCERTA) 27 MG CR tablet documented in this encounter Plan of Treatment Upcoming Encounters Date Type Department Care Team (Late st Contact Info) Description 04/06/2024 7:30 AM CDT Virtual Visit [facility] Mental Health & Addiction [facility] [address] [place] [address] [address] [place] [address] Lexi Farnsworth, [facility] [address] [facility] [address] [place] [address] 04/06/2024 8:00 AM CDT Virtual Visit [facility] Mental Health & Addiction [facility] [address] [facility] [address] [place] [address] Mattie Tellez APRN PUMPER HAND [address] [place] [address] documented as of this encounter Visit Diagnoses Not on filedocumented in this encounter Additional Health Concerns Assessment Noted Time PHQ-9 Depression Total Score: 4 12/11/19 23 7:53 AM CDT documented as of this encounter Care Teams Metal Wire Coating Operator Relationship Specialty Start Date End Date Shannan Malcolm CNP [address] [place] [address] PCP - General Nurse Practitioner - Family 07/09/22 Shannan Malcolm CNP [address] [place] [address] Assigned PCP 04/07/22 Mattie Tellez APRN PUMPER HAND [address] [place] [address] Assigned Behavioral Health Provider 09/22/22 documented as of this encounter
--- OUTSIDE RECORDS SUMMARY | 2024-04-04 18:43 | XMS_ITS | Encounter Summary ---
Author Organization [facility] Address [address] [place] [address]. [place] [address] Care Team Providers Care Planer Chain Offbearer Name Role Phone Shannan Malcolm CNP Unavailable [phone] Shannan Malcolm CNP Primary Care Provider [phone] Mattie Tellez APRN COGNOS ANALYST Unavailable [phone] Reason for Visit * Reason Onset Date Comments See 05/17/23 MyChart Med Advice encounter 023 Encounter Details Date Type Department Care Team (Late st Contact Info) Description 05/22/[address] 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 [address] [place] [address] [address] [place] [address] Lexi Farnsworth, ABNORMAL PSYCHOLOGY TEACHER [address] [place], [place] [address] 04/06/2024 8:00 AM CDT Virtual Visit [facility] Mental Health & Addiction [facility] [address] [place] [address] Mattie Tellez APRN [facility] [address] [place], [place] [address] documented as of this encounter Visit Diagnoses Diagnosis Attention deficit hyperactivity disorder (ADHD), predominantly inattentive type documented in this encounter Additional Health Concerns Assessment Noted Time PHQ-9 Depression Total Score: 4 12/11/19 7:53 AM CDT documented as of this encounter Care Teams Planer Chain Offbearer Relationship Specialty Start Date End Date Shannan Malcolm CNP [address] [place] [address] 685442 PCP - General Nurse Practitioner - Family 07/09/22 Shannan Malcolm CNP [address] [place] [address] 607152 Assigned PCP 04/07/22 Mattie Tellez APRN COGNOS ANALYST [address] [place], [place] [address] Assigned Behavioral Health Provider 09/22/22 documented as of this encounter
--- OUTSIDE RECORDS SUMMARY | 2024-04-04 18:43 | XMS_ITS | Encounter Summary ---
Author Organization [facility] Address [address] [place] [address] Care Team Providers Care Testing Analyst Name Role Phone Shannan Malcolm CNP Unavailable [phone] Shannan Malcolm CNP Primary Care Provider [phone] Mattie Tellez APRN TAKER OFF Unavailable [phone] Reason for Visit * Reason Onset Date Comments Telephone 03/08/2023 Jason Rosales Encounter Details Date Type Department Care Team (Late st Contact Info) Description 03/08/2023 [facility] Medical Advice [facility] Mental Health & Addiction [facility] [address] [place] [address] [address] [place] [address] Mattie Tellez APRN TAKER OFF [address] [place] [address] Telephone (Jason Rosales) Social History Tobacco Use Types Packs/Day Years [...] on file 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 One has patients signature included. RN acknowledged receipt of patients MyC message and let patient know clarification request would besent to the provider for her review up return to the office. Routing to provider high priority. Mariann Maloney RN on 03/11/2023 at 12:53 PM documented in this encounter Plan of Treatment Upcoming Encounters Date Type Department Care Team (Late st Contact Info) Description 04/06/2024 7:30 AM CDT Virtual Visit [facility] Mental Health & Addiction [facility] [address] [place] [address] Lexi Farnsworth, TECHNICAL FELLOW [address] [place], [place] [address] 04/06/2024 8:00 AM CDT Virtual Visit [facility] Mental Health & Addiction [facility] [address] [place] [address] 400 [place] [address] Mattie Tellez APRN TAKER OFF [address] [place] [address] documented as of this encounter Visit Diagnoses Not on filedocumented in this encounter Additional Health Concerns Assessment Noted Time PHQ-9 Depression Total Score: 4 12/11/19 23 7:53 AM CDT documented as of this encounter Care Teams Testing Analyst Relationship Specialty Start Date End Date Shannan Malcolm CNP [address] [place] [address] PCP - General Nurse Practitioner - Family 07/09/22 Shannan Malcolm CNP [address] [place] [address] Assigned PCP 04/07/22 Mattie Tellez APRN CNP [address] [place] [address] [id number] Assigned Behavioral Health Provider 09/22/22 documented as of this encounter
--- OUTSIDE RECORDS SUMMARY | 2024-04-04 18:43 | XMS_ITS | Encounter Summary ---
Author Organization [facility] Address [address] [place] [address] Care Team Providers Care Supervisor Cook Room Name Role Phone Shannan Malcolm CNP Unavailable [phone] Shannan Malcolm CNP Primary Care Provider [phone] Mattie Tellez APRN DATA ENTRY COORDINATOR Unavailable [phone] Reason for Visit * Reason Onset Date Comments Refill Request 02/17/2024 dexmethylphenida te (FOCALIN XR) 10 MG 24 hr capsule Encounter Details Date Type Department Care Team (Late st Contact Info) Description 02/17/2024 MyC Refill [facility] Mental Health & Addiction [facility] [address] [place] [address] Mattie Tellez APRN DATA ENTRY COORDINATOR [address] [place] [address] Refill Request (dexmethylphenidate (FOCALI... 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 Date of Last Office Visit: 01/27/2024 Date of Next Office Visit: 02/24/2024 No shows since last visit: No More than one patient-initiated cancellation (with reschedule) since last seen in clinic? No []Medication refilled per ???Medication Refill in Youth Officer?? policy. [x]Medication unable to be refilled by [...] []Scope of Practice: refill request processed by FLAP CURER/MA []Other: Medication(s) requested: - dexmethylphenidate (FOCALIN XR) 10 MG 24 hr capsule Date last ordered: 01/19/2024 Qty: 30 Refills:0 Take 1 capsule (10 mg) by mouth every morning With Focalin XR 5 mg for total dose of 15 mg. - Appropriate for refill? Provider to review. Controlled Substance Any Controlled Substance(s)? Yes [place] PHYSICAL INTEGRATION PRACTITIONER checked? Yes Dexmethylphenidate ER 10 mg cp was last sold on for quantity of 30. Other controlled substance on [place] PHYSICAL INTEGRATION PRACTITIONER?: Yes Requested medication(s) verified as identical to [...] or call after hours crisis line at [phone] or [phone]. [place] Crisis Text Line. Text [place] to 22[address]99 or Suicide LifeLine Chat: suicidepreventionlifeline.org/chat Schedule an appointment with me in 4 weeks or sooner as needed. Call [facility] [phone] to schedule. Follow up with primary care provider as planned or for acute medical concerns. Call the psychiatric nurse line with medication questions or concerns at [phone]. MyChart may be used to communicate with your provider, but this is not intended to be used for emergencies. Any medication(s) require lab monitoring? No documented in this encounter Plan of Treatment Upcoming Encounters Date Type Department Care Team (Late st Contact Info) Description 04/06/2024 7:30 AM CDT Virtual Visit [facility] Mental Health & Addiction [facility] [address] [place] [address] 400 [place] [address] Lexi Farnsworth, ASSISTANT BUYER [address] [place], [place] [address] 04/06/2024 8:00 AM CDT Virtual Visit [facility] Mental Health & Addiction [facility] [address] [place] [address] Mattie Tellez APRN DATA ENTRY COORDINATOR [address] [place] [address] documented as of this encounter Visit Diagnoses Diagnosis Attention deficit hyperactivity disorder (ADHD), unspecified ADHD type documented in this encounter Additional Health Concerns Assessment Noted Time PHQ-9 Depression Total Score: 6 24/20 24 10:48 AM CDT documented as of this encounter Care Teams Supervisor Cook Room Relationship Specialty Start Date End Date Shannan Malcolm CNP [address] [place] [address] 723462 PCP - General Nurse Practitioner - Family 07/09/22 Shannan Malcolm CNP [address] [place] [address] Assigned PCP 04/07/22 Mattie Tellez APRN CNP [address] [place] [address] Assigned Behavioral Health Provider 09/22/22 documented as of this encounter
--- OUTSIDE RECORDS SUMMARY | 2024-04-04 18:43 | XMS_ITS | Encounter Summary ---
Author Organization [facility] Address [address] [place] [address] Care Team Providers Care Brand Communications Manager Name Role Phone Shannan Malcolm CNP Unavailable [phone] Shannan Malcolm CNP Primary Care Provider [phone] Mattie Tellez APRN DOWEL SETTING MACHINE OPERATOR Unavailable [phone] Encounter Details Date Type Department Care Team (Latest Contact Info) Description 03/14/2023 [facility] [place] Medical Advice [facility] Mental Health & Addiction [facility] [address] [place] [address] Mattie Tellez APRN DOWEL SETTING MACHINE OPERATOR [address] [place], [place] [address] Attention deficit hyperactivity disorder (ADHD), predominantly inattentive [...] on file 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 She would like it sent to the [facility] in [place]. [place] ARMORER TECHNICIAN sold date was 02/12/23. methylphenidate HCL ER, OSM, (CONCERTA) 36 MG CR tablet 30 tablet 0 03/07/2023 No Sig - Route: Take 1 tablet (36 mg) by mouth every morning - Doreen Ahn RN on 03/14/2023 at 11:01 AM * Telephone Encounter - Al Deng - 03/14/2023 10:30 AM CDT Reason for call: Medication If this is a refill request, has the caller requested the refill from the pharmacy already? Yes Will the patient be using a [facility]? [place] of the pharmacy and phone number for the current request: [facility] pharmacy [address] [facility]. [phone]. Name of the medication requested: ADHD medication generic Concerta 36mg. Other request: Pt was able to find a pharmacy that has this medication in stock. Pt also interestedin having all medications go to this pharmacy. Phone number to reach patient: Cell number on file: Telephone Information: Best Time: any Can we leave a detailed message on this number? YES Travel screening: Not Applicable documented in this encounter Plan of Treatment Upcoming Encounters Date Type Department Care Team (Late st Contact Info) Description 04/06/2024 7:30 AM CDT Virtual Visit [facility] Mental Health & Addiction [facility] [address] [place] [address] Lexi Farnsworth, CARD STRIPPER [address] [place] [address] 04/06/2024 8:00 AM CDT Virtual Visit [facility] Mental Health & Addiction [facility] [address] [place] [address] Mattie Tellez APRN DOWEL SETTING MACHINE OPERATOR [address] [place] [address] documented as of this encounter Visit Diagnoses Diagnosis Attention deficit hyperactivity disorder (ADHD), predominantly inattentive type documented in this encounter Additional Health Concerns Assessment Noted Time PHQ-9 Depression Total Score: 4 12/11/19 23 7:53 AM CDT documented as of this encounter Care Teams Brand Communications Manager Relationship Specialty Start Date End Date Shannan Malcolm CNP [address] [place] [address] PCP - General Nurse Practitioner - Family 07/09/22 Shannan Malcolm CNP [address] [place] [address] Assigned PCP 04/07/22 Mattie Tellez APRN DOWEL SETTING MACHINE OPERATOR [address] [place] [address] Assigned Behavioral Health Provider 09/22/22 documented as of this encounter
--- OUTSIDE RECORDS SUMMARY | 2024-04-04 18:43 | XMS_ITS | Encounter Summary ---
Author Organization [facility] Address [address] [place] [address] Care Team Providers Care Chief Guard Name Role Phone Shannan Malcolm CNP Unavailable [phone] Shannan Malcolm CNP Primary Care Provider [phone] Mattie Tellez APRN RUNNER ON Unavailable [phone] Encounter Details Date Type Department Care Team ([facility] st Contact Info) Description 05/27/[address] 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 Patient does have an appt scheduled on 05/31/23 and let her know that she could discuss it with provider at the visit. Otherwise she could try a different pharmacy and let us know and we can send it in. Yolanda Ahn RN on 05/27/2023 at 2:15 PM RUBBER * Telephone Encounter - Jane Jordan DO - 05/27/2023 1:01 PM CST Could RN please inform pt that there is a shortage of all stimulant medication used to treat ADHD. I am not comfortable switching her to something different but I am happy to send the Rx to a different pharmacy if pt would like. RUBBER * Telephone Encounter - Yolanda Ahn RN - 05/27/2023 12:30 PM BED RUBBER Patient has been out of Concerta 36 mg for 2 and 1/2 weeks due to the shortage. She said the pharmacy told her they won't have it until June. She is asking to be switched to a different medication due to the shortage. She would like something similar to the Concerta 36 mg. Last visit by Mattie: CONTINUE fluoxetine 20 mg every day. Script sent for #90. CONTINUE methylphenidate (Concerta) 36 mg every day. Script sent for #30 to be filled after 05/10/23. CONTINUE methylphenidate IR 5-10 mg (1/2-1 tablet) as needed in the afternoon for ADHD. No script needed. CONTINUE lorazepam 0.5 mg as needed only for severe anxiety. Script sent for #30. Discussed possibility of increasing to fluoxetine in future, or additionally may consider reinitiating guanfacine or trial of clonidine at follow-up. Yolanda Ahn RN on 05/27/2023 at 12:32 PM RUBBER * Telephone Encounter - Chantel Kilpatrick - 05/27/2023 11:46 AM CST Reason for call: Medication If this is a refill request, has the caller requested the refill from the pharmacy already? Yes Will the patient be using a [facility]? [place] of the pharmacy and phone number for the current request: [facility] [phone] Name of the medication requested: Concerta Other request: Concerta will not be manufactured until June and wants to see about switching to something similar so it can be filled. Patient has been out for 2.5 weeks. Wants to picket labor union in [place] is possible. Patient has requested a refill from their pharmacies listed and the pharmacies have nothing in their supply to refill it with. Pt understanded there is a national shortage Phone number to reach patient: Home number on file [phone] (home) Best Time: Any Can we leave a detailed message on this number? YES Travel screening: Not Applicable RUBBER documented in this encounter Plan of Treatment Upcoming Encounters Date Type Department Care Team (Late st Contact Info) Description 04/06/2024 7:30 AM CDT Virtual Visit [facility] [address] [place] [address] [address] [place] [address] Lexi Farnsworth, SUPERVISOR GLUING [address] [place] [address] 04/06/2024 8:00 AM CDT Virtual Visit [facility] [address] [address] [place] [phone] Mattie Tellez APRN RUNNER ON [address] [place], [place] [address] documented as of this encounter Visit Diagnoses Not on filedocumented in this encounter Additional Health Concerns Assessment Noted Time PHQ-9 Depression Total Score: 4 12/11/19 23 7:53 AM CDT documented as of this encounter Care Teams Chief Guard Relationship Specialty Start Date End Date Shannan Malcolm CNP [facility] [place] [address] PCP - General Nurse Practitioner - Family 07/09/22 Shannan Malcolm CNP [address] [place] [address] Assigned PCP 04/07/22 Mattie Tellez APRN CNP [address] [place] [address] Assigned Behavioral Health Provider 09/22/22 documented as of this encounter
--- OUTSIDE RECORDS SUMMARY | 2024-04-04 18:43 | XMS_ITS | Encounter Summary ---
Author Organization [place] Address [facility] [place] [address] Care Team Providers Care Television Production Clerk Name Role Phone Shannan Malcolm CNP Unavailable [phone] Shannan Malcolm CNP Primary Care Provider [phone] Mattie Tellez APRN AUTOMATION QA LEAD Unavailable [phone] Encounter Details Date Type Department Care Team (Late st Contact Info) Description 11/13/2023 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 Gender Identity Female 02/08/2022 7:17 AM CDT Sexual Orientation Choose not to disclose 2021 7:17 AM CDT documented as of this encounter Plan of Treatment Upcoming Encounters Date Type Department Care Team (Late st Contact Info) Description 04/06/2024 7:30 AM CDT Virtual Visit [facility] Mental Health & Addiction [facility] [address] [place] [address] Lexi Farnsworth, CUSTOM DESIGNER [address] [place] [phone] 04/06/2024 8:00 AM CDT Virtual Visit [facility] [address] [place] [phone] Mattie Tellez APRN AUTOMATION QA LEAD 500 [place] [address] documented as of this encounter Visit Diagnoses Not on filedocumented in this encounter Additional Health Concerns Assessment Noted Time PHQ-9 Depression Total Score: 4 12/11/19 23 7:53 AM CDT documented as of this encounter Care Teams Television Production Clerk Relationship Specialty Start Date End Date Shannan Malcolm CNP [address] [place] [address] PCP - General Nurse Practitioner - Family 07/09/22 Shannan Malcolm CNP [address] [place] [address] Assigned PCP 04/07/22 Mattie Tellez APRN AUTOMATION QA LEAD 500 [place], [place] [address] Assigned Behavioral Health Provider 09/22/22 documented as of this encounter
--- OUTSIDE RECORDS SUMMARY | 2024-04-04 18:43 | XMS_ITS | Encounter Summary ---
Author Organization [place] Address [facility]0 [place] [address] Care Team Providers Care Ict Systems Test Engineer Name Role Phone Shannan Malcolm CNP Unavailable [phone] Shannan Malcolm CNP Primary Care Provider [phone] Mattie Tellez APRN ASE MASTER MECHANIC Unavailable [phone] Encounter Details Date Type Department Care Team (Late st Contact Info) Description 12/26/2023 Orders Only [facility] Mental Health & Addiction [facility] [address] [place] [address] Mattie Tellez APRN ASE MASTER MECHANIC 500 [place], [place] [address] Social History Tobacco Use Types Packs/Day Years [...] on file Legal Sex Female 3:13 AM RATTLING MACHINE TENDER Gender Identity Female 02/08/2022 7:17 AM CDT Sexual Orientation Choose not to disclose 2021 7:17 AM CDT documented as of this encounter Plan of Treatment Upcoming Encounters Date Type Department Care Team (Late st Contact Info) Description 04/06/2024 7:30 AM CDT Virtual Visit [facility] Mental Health & Addiction [facility] [address] [place] [address] Lexi Farnsworth, MALT SPECIFICATIONS CONTROL ASSISTANT [address] [place] [phone] 04/06/2024 8:00 AM CDT Virtual Visit [facility] Mental Health & Addiction [facility] [address] [place] [phone] Mattie Tellez APRN ASE MASTER MECHANIC 500 [place] [address] documented as of this encounter Visit Diagnoses Not on filedocumented in this encounter Additional Health Concerns Assessment Noted Time PHQ-9 Depression Total Score: 4 12/11/19 7:53 AM CDT documented as of this encounter Care Teams Ict Systems Test Engineer Relationship Specialty Start Date End Date Shannan Malcolm CNP [address] [place] [address] PCP - General Nurse Practitioner - Family 07/09/22 Shannan Malcolm CNP [address] [place] [address] Assigned PCP 04/07/22 Mattie Tellez APRN ASE MASTER MECHANIC 500 [place] [address] Assigned Behavioral Health Provider 09/22/22 documented as of this encounter
--- OUTSIDE RECORDS SUMMARY | 2024-04-04 18:44 | XMS_ITS | Encounter Summary ---
Author Organization [facility] Address [address] [place] [address] Care Team Providers Care Customer Advocate Name Role Phone Anni Nair PA-C Primary Care Provider [phone] Shannan Malcolm GRADALL OPERATOR Unavailable [phone] Nabeel Nolan MD Unavailable [phone] Shannan Malcolm GRADALL OPERATOR Primary Care Provider [phone] Mattie Tellez APRN GRADALL OPERATOR Unavailable [phone] Reason for Visit * Reason Onset Date Comments MyChart Communication 04/23/2022 Encounter Details Date Type Department Care Team (Late st Contact Info) Description 04/23/2022 MyC Medical Advice [address] [phone] Shannan Malcolm, GRADALL OPERATOR [address] [place] [address] MyChart Communication Social History Tobacco Use Types Packs/Day Years Used Date Smoking Tobacco: Former Cigarettes 0 09/22/2013 - 09/22/2017 Smokeless Tobacco: Never Comments:2 cigs socially occ asionally Alcohol Use Standard Drinks/Week Comments Yes 0 (1 standard drink = 0.6 oz pur e alcohol) 0-5 drinks per month PHQ-2 Answer Date Recorded PHQ-2 Total Score (Adult) - Positive if 3 or more points; Administer PHQ-9 if positive 5 04/26/2022 Comments No Sex and Gender Information Value Date Recorded Sex Assigned at Not on file Legal Sex Female 3:13 AM MANAGER E LEARNING Gender Identity Female 02/08/2022 7:17 AM CDT Sexual Orientation Choose not to disclose 2021 7:17 AM CDT COVID-19 Exposure Response Date Recorded In the last 10 days, have yo u been in contact with someone who was confirmed or suspected to have Coronavirus/COVID-19? No / Unsure 03/29/2022 8:13 AM CDT documented as of this encounter Miscellaneous Notes * Telephone Encounter - Maria Antonia Vázquez RN - 04/26/2022 2:32 PM MANAGER E LEARNING Please see my chart message below Please review and advise Thank you Maria Antonia Vázquez RN, BSN [facility] GER E LEARNING documented in this encounter Plan of Treatment Upcoming Encounters Date Type Department Care Team (Late st Contact Info) Description 04/06/2024 7:30 AM CDT Virtual Visit [facility] Mental Health & Addiction [facility] [address] [place] [address] [address] [place] [address] Lexi Farnsworth, ELECTRICAL SYSTEMS DESIGNER [address] [place], [place] [address] 04/06/2024 8:00 AM CDT Virtual Visit [facility] Health & Addiction [facility] [address] [address] [place] [phone] Mattie Tellez, [place] GRADALL OPERATOR [address] [place], [place] [address] documented as of this encounter Visit Diagnoses Not on filedocumented in this encounter Additional Health Concerns Assessment Noted Time PHQ-9 Depression Total Score: 25 022 7:08 AM MANAGER E LEARNING documented as of this encounter Care Teams Customer Advocate Relationship Specialty Start Date End Date Anni Nair PA-C PCP - General Physician Fire Fighting Equipment Specialist 10/01/17 07/08/22 Shannan Malcolm CNP [address] [place] [address] [id number] PCP - General Nurse Practitioner - Family 07/09/22 Shannan Malcolm CNP [address] [place] [address] [id number] Assigned PCP 04/07/22 Nabeel Nolan MD [address] [place] [address] [phone] Assigned Behavioral Health Provider 06/02/22 09/21/22 Mattie Tellez APRN GRADALL OPERATOR [address] [place] [address] [phone] Assigned Behavioral Health Provider 09/22/22 documented as of this encounter
--- OUTSIDE RECORDS SUMMARY | 2024-04-04 18:44 | XMS_ITS | Encounter Summary ---
Author Organization [facility] Address [address] [place] [address] Care Team Providers Care Mud Boss Name Role Phone Shannan Malcolm HARD ROCK MINER BLASTING Unavailable [phone] Nabeel Nolan MD Unavailable [phone] Shannan Malcolm HARD ROCK MINER BLASTING Primary Care Provider Mattie Tellez APRN HARD ROCK MINER BLASTING Unavailable [phone] Reason for Visit * Reason Onset Date Comments Refill Request 09/20/2022 Encounter Details Date Type Department Care Team (Late st Contact Info) Description 09/20/2022 MyC Refill [address] [phone] Shannan Malcolm, HARD ROCK MINER BLASTING [address] [place] [phone] Refill Request Social History Tobacco Use Types Packs/Day Years Used Date Smoking Tobacco: Every Day Cigarettes Started: 09/22/2013; Last attempted to quit: 09/22/2017 Smokeless Tobacco: Never Comments:2 cigs socially occ asionally Alcohol Use Standard Drinks/Week Comments Yes 0 (1 standard drink = 0.6 oz pur e alcohol) 0-5 drinks per month PHQ-2 Answer Date Recorded PHQ-2 Score 2 09/21/2022 Comments No Sex and Gender Information Value Date Recorded Sex Assigned at Not on file Legal Sex Female 3:13 AM ASSOCIATE TECHNICIAN Gender Identity Female 02/08/2022 7:17 AM CDT Sexual Orientation Choose not to disclose 2021 7:17 AM CDT COVID-19 Exposure Response Date Recorded In the last 10 days, have alexx u been in contact with someone who was confirmed or suspected to have Coronavirus/COVID-19? No / Unsure 09/10/2022 3:17 PM CDT documented as of this encounter Plan of Treatment Upcoming Encounters Date Type Department Care Team (Late st Contact Info) Description 04/06/2024 7:30 AM CDT Virtual Visit [facility] Mental Health & Addiction [facility] [address] [address] [place] [address] Lexi Farnsworth, OYSTER UNLOADER [address] [place], [place] [address] 04/06/2024 8:00 AM CDT Virtual Visit [facility] [address] 400 [place] [phone] Mattie Tellez APRN HARD ROCK MINER BLASTING 500 [place], [place] [address] documented as of this encounter Visit Diagnoses Diagnosis Anxiety Anxiety state, unspecified Panic attack Panic disorder without agoraphobia documented in this encounter Additional Health Concerns Assessment Noted Time PHQ-9 Depression Total Score: 25 023 7:10 AM CDT documented as of this encounter Care Teams Mud Boss Relationship Specialty Start Date End Date Shannan Malcolm CNP [address] [place] [address] PCP - General Nurse Practitioner - Family 07/09/22 Shannan Malcolm CNP [address] [place] [address] Assigned PCP 04/07/22 Nabeel Nolan MD [address] [place] [address] 250 [place] [address] Assigned Behavioral Health Provider 06/02/22 09/21/22 Mattie Tellez APRN HARD ROCK MINER BLASTING 500 [place] [address] Assigned Behavioral Health Provider 09/22/22 documented as of this encounter
--- OUTSIDE RECORDS SUMMARY | 2024-04-04 18:44 | XMS_ITS | Encounter Summary ---
Author Organization [facility] Address [address] [place] [address] Care Team Providers Care Environmental Protection Economist Name Role Phone Shannan Malcolm CNP Unavailable [phone] Nabeel Nolan MD Unavailable [phone] Shannan Malcolm POT LINER Primary Care Provider [phone] Mattie Tellez APRN POT LINER Unavailable [phone] Reason for Visit * Reason Comments Medication Refill Encounter Details Date Type Department Care Team (Late st Contact Info) Description 09/15/[address] [phone] Shannan Malcolm, POT LINER [address] [place] [phone] Medication Refill Social History Tobacco Use Types Packs/Day Years Used Date Smoking Tobacco: Every Day Cigarettes Started: 09/22/2013; Last attempted to quit: 09/22/2017 Smokeless Tobacco: Never Comments:2 cigs socially occ asionally Alcohol Use Standard Drinks/Week Comments Yes 0 (1 standard drink = 0.6 oz pur e alcohol) 0-5 drinks per month PHQ-2 Answer Date Recorded PHQ-2 Score 2 09/13/2022 Comments No Sex and Gender Information Value Date Recorded Sex Assigned at Not on file Legal Sex Female 3:13 AM TIMBER MANAGEMENT SPECIALIST Gender Identity Female 02/08/2022 7:17 AM CDT Sexual Orientation Choose not to disclose 2021 7:17 AM CDT COVID-19 Exposure Response Date Recorded In the last 10 days, have yo u been in contact with someone who was confirmed or suspected to have Coronavirus/COVID-19? No / Unsure 09/10/2022 3:17 PM CDT documented as of this encounter Miscellaneous Notes * Telephone Encounter - Shannan Malcolm CNP - 09/17/2022 9:40 AM CDT Already addressed in another encounter-should be getting from psychiatry if continuing. documented in this encounter Plan of Treatment Upcoming Encounters Date Type Department Care Team (Late st Contact Info) Description 04/06/2024 7:30 AM CDT Virtual Visit [facility] Mental Health & Addiction [facility] [address] [place] [address] Lexi Farnsworth, [facility] [address] [place] [address] 04/06/2024 8:00 AM CDT Virtual Visit [facility] Health & Addiction [facility] [address] [place] [phone] Mattie Tellez APRN [facility] [address] [place], [place] [address] documented as of this encounter Visit Diagnoses Diagnosis Anxiety Anxiety state, unspecified Panic attack Panic disorder without agoraphobia documented in this encounter Additional Health Concerns Assessment Noted Time PHQ-9 Depression Total Score: 25 023 7:10 AM CDT documented as of this encounter Care Teams Environmental Protection Economist Relationship Specialty Start Date End Date Shannan Malcolm CNP [address] [place] [address] PCP - General Nurse Practitioner - Family 07/09/22 Shannan Malcolm CNP [address] [place] [address] Assigned PCP 04/07/22 Nabeel Nolan MD [address] [address] Assigned Behavioral Health Provider 06/02/22 09/21/22 Mattie Tellze APRN POT LINER [address] [place] [address] Assigned Behavioral Health Provider 09/22/22 documented as of this encounter
--- OUTSIDE RECORDS SUMMARY | 2024-04-04 18:44 | XMS_ITS | Encounter Summary ---
Author Organization [place] Address [address] [place] [address] Care Team Providers Care Automobile Tester Name Role Phone Shannan Malcolm CNP Unavailable [phone] Nabeel Nolan MD Unavailable [phone] Shannan Malcolm CNP Primary Care Provider [phone] Mattie Tellez APRN RUBBER TUBING BACKER Unavailable [phone] Encounter Details Date Type Department Care Team (Late st Contact Info) Description 08/06/2022 MyC Medical Advice [address] [place] [address] Shannan Malcolm, RUBBER TUBING BACKER [address] [place] [address] Social History Tobacco Use Types Packs/Day Years [...] or more points; Administer PHQ-9 if positive 3 07/16/2022 Comments No Sex and Gender Information Value Date Recorded Sex Assigned at Not on file Legal Sex Female 3:13 AM MAINTENANCE TECH Gender Identity Female 02/08/2022 7:17 AM CDT Sexual Orientation Choose not to disclose 2021 7:17 AM CDT COVID-19 Exposure Response Date Recorded In the last 10 days, have yo u been in contact with someone who was confirmed or suspected to have Coronavirus/COVID-19? Yes 07/16/2022 4:46 PM MAINTENANCE TECH documented as of this encounter Plan of Treatment Upcoming Encounters Date Type Department Care Team (Late st Contact Info) Description 04/06/2024 7:30 AM CDT Virtual Visit [facility] Mental Health & Addiction [facility] [address] [place] [address] [address] [place] [address] Lexi Farnsworth, OPENER TENDER [address] [place], [place] [address] 04/06/2024 8:00 AM CDT Virtual Visit [facility] Mental Health & Addiction [facility] [address] [place] [address] 400 [place] [phone] Mattie Tellez APRN [facility] 500 [place] [address] documented as of this encounter Visit Diagnoses Not on filedocumented in this encounter Additional Health Concerns Assessment Noted Time PHQ-9 Depression Total Score: 16 023 7:10 AM CDT documented as of this encounter Care Teams Automobile Tester Relationship Specialty Start Date End Date Shannan Malcolm CNP [address] [place] [address] PCP - General Nurse Practitioner - Family 07/09/22 Shannan Malcolm CNP [address] [place] [address] Assigned PCP 04/07/22 Nabeel Nolan MD [facility] [address] [place] [address] Assigned Behavioral Health Provider 06/02/22 09/21/22 Mattie Tellez APRN RUBBER TUBING BACKER [address] [place] [address] Assigned Behavioral Health Provider 09/22/22 documented as of this encounter
--- OUTSIDE RECORDS SUMMARY | 2024-04-04 18:44 | XMS_ITS | Encounter Summary ---
Author Organization [place] Address [address] [place] [address] Care Team Providers Care Certified Juvenile Probation Officer Name Role Phone Nabeel Maik MD Primary Care Provider [phone] Noemi Vidal MD Primary Care Provider [phone] Azra Samano APRN AUTO TOP MECHANIC Primary Care Provider Unavailable [facility] Primary Care Provider Anni Nair-C Primary Care Provider [phone] Anni Nair-C Unavailable [phone] Anni Nair-C Unavailable [phone] Lesli Ham PA-C Unavailable + [phone] Arellano DO Unavailable [phone] Anni Nair-C Unavailable [phone] Shannan Malcolm CNP Unavailable [phone] Shannan Malcolm CNP Unavailable [phone] Nabeel Nolan MD Unavailable [phone] Shannan Malcolm CNP Primary Care Provider [phone] Mattie Tellez APRN AUTO TOP MECHANIC Unavailable [phone] Encounter Details Date Type Department Care Team (Late st Contact Info) Description 10/25/[address] [facility] [address] Noemi Vidal MD [facility] [address] [id number] [facility] D/C Social History Tobacco Use Types Packs/Day Years Used Date Smoking Tobacco: Former Cigarettes 0 12/2018 - 12/2022 Smokeless Tobacco: Never Comments: 12/10/2022 patient using nicotine patch and lozenges and on the path to quitting smoking. Alcohol Use Standard Drinks/Week Comments Yes 0 (1 standard drink = 0.6 oz pur e alcohol) 0-5 drinks per month Comments No Sex and Gender Information Value Date Recorded Sex Assigned at Not on file Legal Sex Female 3:13 AM COMPUTING MACHINE OPERATOR Gender Identity Female 02/08/2022 7:17 AM CDT Sexual Orientation Choose not to disclose 2021 7:17 AM CDT documented as of this encounter Plan of Treatment Upcoming Encounters Date Type Department Care Team (Late st Contact Info) Description 04/06/2024 7:30 AM CDT Virtual Visit [facility] [address] [place] [address] 400 [place] [address] Lexi Farnsworth LICSW [address] [facility] 200 [place], [place] [phone] 04/06/2024 8:00 AM CDT Virtual Visit [facility] [address] [address] [place] [phone] Mattie Tellez APRN [facility] [address] [place], [place] [address] documented as of this encounter Visit Diagnoses Not on filedocumented in this encounter Additional Health Concerns Infection Onset Date Last Indicated Resolved Time Rule Out COVID-19 03/09/2022 03/09/2022 03/30/2022 11:39 PM CDT documented as of this encounter Care Teams Certified Juvenile Probation Officer Relationship Specialty Start Date End Date Nabeel Maki MD [address] [place] [address] PCP - General 07/25/01 10/25/09 Noemi Vidal MD [address] [place] [address] PCP - General Family Practice 10/26/09 01/19/14 Azra Samano APRN AUTO TOP MECHANIC [address] [place] [address] PCP - General Nurse Practitioner 01/20/14 11/08/[address] [address] PCP - General 11/09/15 09/30/17 Anni Nair PA-C [address] [place] [address] PCP - General Physician Site Worker 10/01/17 07/08/22 Anni Nair PA-C [address] [place] [place] [address] [id number] PCP - Assigned PCP 12/09/16 08/12/18 Shannan Malcolm, GROVER [address] [place] [address] 118[address] PCP - General Nurse Practitioner - Family 07/09/22 Anni Nair PA-C [address] [place] [place] [address] Assigned PCP 12/09/16 11/29/18 Lesli Ham PA-C [address] [place] [address] Assigned PCP 11/30/18 12/06/18 Rd Arellano DO [address] [place] [address] Assigned PCP 12/07/18 04/23/20 Anni Nair PA-C [address] [place] [address] Assigned PCP 04/24/20 10/15/20 Shannan Malcolm, GROVER [address] [place] [address] Assigned PCP 02/24/22 03/16/22 Shannan Malcolm, GROVER [address] [place] [address] Assigned PCP 04/07/22 Nabeel Nolan MD [facility] [address] Assigned Behavioral Health Provider 06/02/22 09/21/22 Mattie Tellez APRN AUTO TOP MECHANIC [address] [place] [address] Assigned Behavioral Health Provider 09/22/22 documented as of this encounter
--- OUTSIDE RECORDS SUMMARY | 2024-04-04 18:44 | XMS_ITS | Encounter Summary ---
Author Organization [place] Address [address] [place] [address] Care Team Providers Care Hooking Machine Operator Name Role Phone Shannan Malcolm CERTIFIED DRIVER EXAMINER Unavailable [phone] Nabeel Nolan MD Unavailable [phone] Shannan Malcolm CERTIFIED DRIVER EXAMINER Primary Care Provider Mattie Tellez APRN CERTIFIED DRIVER EXAMINER Unavailable [phone] Reason for Visit * Reason Onset Date Comments Refill Request 09/15/2022 Encounter Details Date Type Department Care Team (Late st Contact Info) Description 09/15/2022 MyC Refill [address] [phone] Shannan Malcolm, CERTIFIED DRIVER EXAMINER [address] [place] [address] [phone] Refill Request Social History Tobacco Use Types [...] on file Legal Sex Female 3:13 AM SERVICE DISMANTLER Gender Identity Female 02/08/2022 7:17 AM CDT [...] Encounter - Shannan Malcolm CNP - 09/17/2022 9:41 AM CDT addressed in another encounter. Refused due to seeing psychiatry. If they deem appropriate can continue. Shannan Malcolm CNP * Telephone Encounter - Maria Antonia Vázquez RN - 09/17/2022 9:32 AM CDT Last office visit: No previous visit found Future Office Visit: CSA -- Patient Level: CSA: None found at the patient level. Routing refill request to provider for review/approval because: Drug not on the [facility] refill protocol Maria Antonia Vázquez RN, BSN [facility] Triage documented in this encounter Plan of Treatment Upcoming Encounters Date Type Department Care Team (Late st Contact Info) Description 04/06/2024 7:30 AM CDT Virtual Visit [facility] & Addiction [facility] [address] [place] [address] 400 [place] [address] Lexi Farnsworth, PAINTER APPRENTICE [address] [place] [address] 04/06/2024 8:00 AM CDT Virtual Visit [facility] [address] [place] [phone] Mattie Tellez APRN CERTIFIED DRIVER EXAMINER 500 [place], [place] [address] documented as of this encounter Visit Diagnoses Diagnosis Anxiety Anxiety state, unspecified Panic attack Panic disorder without agoraphobia documented in this encounter Additional Health Concerns Assessment Noted Time PHQ-9 Depression Total Score: 25 023 7:10 AM CDT documented as of this encounter Care Teams Hooking Machine Operator Relationship Specialty Start Date End Date Shannan Malcolm CNP [address] [place], [place] [address]24[address] PCP - General Nurse Practitioner - Family 07/09/22 Shannan Malcolm CNP [address] [place] [address] [id number] Assigned PCP 04/07/22 Nabeel Nolan MD [address] [place] [address] Assigned Behavioral Health Provider 06/02/22 09/21/22 Mattie Tellez APRN CERTIFIED DRIVER EXAMINER 500 [place] [address] Assigned Behavioral Health Provider 09/22/22 documented as of this encounter
--- OUTSIDE RECORDS SUMMARY | 2024-04-04 18:44 | XMS_ITS | Encounter Summary ---
Author Organization [place] Address [address] [place] [address] Care Team Providers Care Senior Contracts Manager Name Role Phone Shannan Malcolm MOVIE PROJECTIONIST Unavailable [phone] Nabeel Nolan MD Unavailable [phone] Shannan Malcolm MOVIE PROJECTIONIST Primary Care Provider Mattie Tellez APRN MOVIE PROJECTIONIST Unavailable [phone] Reason for Visit * Reason Onset Date Comments Refill Request 09/15/2022 Encounter Details Date Type Department Care Team (Late st Contact Info) Description 09/15/2022 MyC Medical Advice [address] [phone] Shannan Malcolm, MOVIE PROJECTIONIST [address] [place] [address] Refill Request Social History Tobacco Use Types [...] on file Legal Sex Female 3:13 AM LACQUER DIPPING MACHINE OPERATOR Gender Identity Female 02/08/2022 7:17 [...] Description 04/06/2024 7:30 AM CDT Virtual Visit [facility] & Addiction [facility] [address] [place] [address] Lexi Farnsworth, HARDWOOD FINISHER [address] [place], [place] [address] 04/06/2024 8:00 AM CDT Virtual Visit [facility] [address] [address] [place] [phone] Mattie Tellez APRN MOVIE PROJECTIONIST 500 [place], [place] [address] documented as of this encounter Visit Diagnoses Not on filedocumented in this encounter Additional Health Concerns Assessment Noted Time PHQ-9 Depression Total Score: 25 023 7:10 AM CDT documented as of this encounter Care Teams Senior Contracts Manager Relationship Specialty Start Date End Date Shannan Malcolm CNP [address] [place] [address] PCP - General Nurse Practitioner - Family 07/09/22 Shannan Malcolm CNP [address] [place] [address] Assigned PCP 04/07/22 Nabeel Nolan MD [address] [facility] [address] [place] [address] Assigned Behavioral Health Provider 06/02/22 09/21/22 Mattie Tellez APRN MOVIE PROJECTIONIST 500 [place], [place] [address] Assigned Behavioral Health Provider 09/22/22 documented as of this encounter
--- OUTSIDE RECORDS SUMMARY | 2024-04-04 18:44 | XMS_ITS | Encounter Summary ---
Author Organization [place] Address [address] [place] [address] Care Team Providers Care Synchro Assembler Name Role Phone Shannan Malcolm CNP Unavailable [phone] Shannan Malcolm CNP Primary Care Provider [phone] Mattie Tellez APRN GLOBAL CLIMATE CHANGE RESEARCHER Unavailable [phone] Reason for Visit * Reason Onset Date Comments Forms 12/21/2022 Encounter Details Date Type Department Care Team (Late st Contact Info) Description 12/21/[address] [facility] & [facility] [address] [place] [address] Mattie Tellez, [place] GLOBAL CLIMATE CHANGE RESEARCHER [address] [place], [place] [address] Forms Social History Tobacco Use Types Packs/Day Years [...] on file Legal Sex Female 3:13 AM READING RECOVERY TEACHER Gender Identity Female 02/08/2022 7:17 AM CDT Sexual Orientation Choose not to disclose 2021 7:17 AM CDT documented as of this encounter Miscellaneous Notes * Telephone Encounter - Keily Yeboah - 12/21/2022 2:08 PM CDT Reason for call: Other Patient called regarding (reason for call): call back and Form Additional comments: [employer] calling to request changes to a form for patient: Question 12: first day of certification needs to be changed to 11/30/2022 from 12/19/2022. Please intial and date next to that question and fax back. Fax is listed at the top of the form. Phone number to reach patient: Other phone number: [employer]#: [phone]* Best Time: andrew Can we leave a detailed message on this number? YES Travel screening: Not Applicable documented in this encounter Plan of Treatment Upcoming Encounters Date Type Department Care Team (Late st Contact Info) Description 04/06/2024 7:30 AM CDT Virtual Visit [facility] [address] [place] [address] 400 [place] [address] Lexi Farnsworth LICSW [address] [facility] 200 [place], [place] [phone] 04/06/2024 8:00 AM CDT Virtual Visit [facility] [address] [address] [place] [address] Mattie Tellez APRN GLOBAL CLIMATE CHANGE RESEARCHER 500 [place], [place] [phone] documented as of this encounter Visit Diagnoses Not on filedocumented in this encounter Additional Health Concerns Assessment Noted Time PHQ-9 Depression Total Score: 4 12/11/19 23 7:53 AM CDT documented as of this encounter Care Teams Synchro Assembler Relationship Specialty Start Date End Date Shannan Malcolm, GROVER [address] [place] [address] PCP - General Nurse Practitioner - Family 07/09/22 Shannan Malcolm CNP [address] [place] [address] [id number] Assigned PCP 04/07/22 Mattie Tellez APRN CNP [address] [place] [address] Assigned Behavioral Health Provider 09/22/22 documented as of this encounter
--- OUTSIDE RECORDS SUMMARY | 2024-04-04 18:44 | XMS_ITS | Clinical Summary ---
Author Organization [facility] Address [place], [place] [address] Care Team Providers Care Double Backer Name Role Phone Brionna Giang MD Primary Care Provider Allergies Active Allergy Reactions Criticality Noted Date Comments Penicillins Hives 07/13/2009 Medications Medication Sig Dispensed Refills Start Date End Date Status methylphenidate HCl (RITALIN) 10 mg tablet Take 10 mg by mouth once daily in the afternoon. 07/01/2023 Active FLUoxetine (PROZAC) 20 mg capsule Take 20 mg by mouth once daily. 07/02/2023 Active guanFACINE (INTUNIV) 1 mg Extended-Release tablet Take 1 mg by mouth at bedtime. 07/02/2023 Active clonazePAM (KLONOPIN) 0.5 mg tablet Take 0.5 mg by mouth once daily if needed for Anxiety. 07/02/2023 Active levonorgestrel (MIRENA) 20 mcg/24 hours (8 yrs) 52 mg intrauterine device (IUD) Inject 1 Each intrauterine. Active albuterol HFA (PRO-AIR; VENTOLIN; PROVENTIL) 90 mcg/actuation inhalerIndications: Mild persistent asthma without complication Inhale 2 Puffs by mouth every 4 hours if needed for Shortness Of Breath or Wheezing. 18 g 1 07/22/2023 Active NebulizerIndication s:Mild persistent asthma without complication Nebulizer, disposable neb kit x 4, reuseable neb kit x 1, mask x 1, filters x 1. Frequency of use: daily; Medication: 99 Length of need: 99 months 1 Each 07/22/2023 07/22/2024 Active benzonatate (TESSALON) 100 mg capsuleIndications: Viral URI with cough Take 1 Capsule (100 mg) by mouth 3 times daily if needed for Cough. 12 Capsule 11/24/2023 Active Symbicort 160-4.5 mcg/actuation (160-4.5 mcg each actuation) inhalerIndications: Mild persistent asthma without complication Inhale 2 Puffs by mouth two times daily. 10.2 g 12 12/02/2023 Active Active Problems Problem Noted Date Diagnosed Date Mild persistent asthma without complication 07/11 Anxiety 07/18/2023 ASCUS with positive high risk HPV cervical 07/11 Overview (07/29/2023): 02/2011 ASCUS/HPV+ 06/2011 NIL 03/2012 NIL 10/2016 NIL/HPV negative 10/2017 NIL/HPV negative 07/2023 NIL/HPV negative. Plan: Pap/HPV due 07/2028. Attention deficit hyperactiv ity disorder (ADHD), predominantly inattentive type 09/27/2022 PTSD (post-traumatic stress disorder) 09/27/2022 Alcohol use disorder in remission 11/13/2021 Major depressive disorder, single episode, moder ate 12/17/2008 Resolved Problems Problem Noted Date Diagnosed Date Resolved Date Allergy 07/18/2023 07/22/2023 Overview (07/18/2023): Problem list name updated by automated process. Provider to review Inattention 05/28/2022 07/22/2023 MDD (major depressive disord er), recurrent episode, moderate 05/28/2022 07/22/2023 CATHY (generalized anxiety disorder) 05/28/2022 07/22/2023 Mixed anxiety depressive disorder 11/23/2021 07/22/2023 Alcohol withdrawal seizure with complication 07/22/2023 Elevated blood pressure read ing without diagnosis of hypertension 09/03/2017 07/22/2023 Controlled substance agreement signed 01/20/2014 07/22/2023 Overview (07/18/2023): Patient is followed by Azra Shine, PEST CONTROL OPERATOR, PEST CONTROL OPERATOR for ongoing prescription of a controlled medicine. Medicine: Klonopin 0.5mg Maximum use per month: 3o tablets/month. Expected duration: undetermined. Medication agreement on file: YES - signed: 11/2013. Clinic visit recommended: every 4 months IUD (intrauterine device) in place 03/20/2012 07/22/2023 Overview (07/18/2023): Placed 12/2011 Post - dates 01/05/2011 07/22/2023 Supervision of normal first 01/05/2011 07/22/2023 Mild intermittent asthma 01/05/201105/2024 Normal delivery 01/05/2011 07/22/2023 Encounter for screening for cardiovascular disorders 04/09/2010 07/22/2023 Seizure disorder 10/26/2009 07/22/2023 Seizure 10/23/2009 07/22/2023 Overview (10/23/2009): Apparently only gets them when she is intoxicated 10/23/2009 she is intoxicated and has had multiple seizures. Major depressive disorder, s marcia episode, moderate 12/17/2008 07/22/2023 POD (perioral dermatitis) 12/17/2008 Mild intermittent asthma 09/04/200505/2024 Overview (07/18/2023): exercise related Immunizations Name Administration Dates Next Due COVID-19 VACCINE SPIKEVAX (M ODERNA 50MCG/0.5ML) 12YO+ PFS 07/22/2023 Influenza Virus, Unspecified 03/20/2012,04/09/20 11,03/17/2010 Influenza, IIV3 (Age 6-35 mos) 04/09/2011 Influenza, IIV3 (Age >=3 years) 03/20/2012,03/17 Influenza, IIV4 07/22/2023,04/09/2011 MMR 02/01/1999 Pneumococcal Poly,23-Valent (Pneumovax) 07/16/19 10 Pneumococcal conj 13-Valent (Prevnar 13) 010 Td (Age >=7 Years) 02/01/1999 Td, Preservative Free (age >= 7 Years) 199 8 Tdap 05/31/2017,06/29/2011,02/01/1999 Family History Medical History Relation Name Comments Addiction problem Brother Anxiety disorder Brother Depression Brother Anxiety disorder Daughter Alcoholism Father Heart Disease Father Hypertension Father Cancer Maternal Grandfather Anxiety disorder Mother Crohn's disease Mother Depression Mother Hypertension Mother Heart Disease Paternal Grandfather Cancer-breast Paternal Grandmother Heart Disease Paternal Grandmother Anxiety disorder Sister Depression Sister Relation Name Status Comments Brother Alive Daughter Alive Father Maternal Grandfather Maternal Grandmother Alive Mother Alive Paternal Grandfather Paternal Grandmother Sister Alive Social History Tobacco Use Types Packs/Day Years Used Date Smoking Tobacco: Former Cigarettes 0.3 19.1 1 06/17/2002 - 2022 Comments:quit may 25, 2009 Alcohol Use Standard Drinks/Week Comments Not Currently 8.3 (1 standard drink = 0.6 oz p ure alcohol) Sober since 04/09/2022 PHQ-2 Answer Date Recorded PHQ-2 TOTAL SCORE 1 07/22/2023 Social Connections Answer Date Recorded Frequency of Communication with Friends and Fami ly Not on file 07/18/2023 Sex and Gender Information Value Date Recorded Sex Assigned at Not on file Gender Identity Not on file Sexual Orientation Not on file Obstetrics History Para Term AB IAB SAB Ectopic Multiple Livin g Live Births 2 1 1 0 1 0 1 0 0 1 2 Date Outcome GA Total Labor Labor/2nd/3rd Weight Sex Type Anes PTL Michaela A1 A5 Name Clin 2008 SAB SPONTA NEOUS Decea sed 2010 Term 41w 0d F Vag Epidur al N Livin g 8 16 November Delivery Location:[facility] Last Filed Vital Signs Vital Sign Reading Time Taken Comments Blood Pressure 113/63 11/24/2023 8:01 AM CDT Pulse 102 11/24/2023 8:01 AM CDT Temperature 36.8 ??C (98.3 ??F) 11/24/2023 6:56 AM CD T Respiratory Rate 18 11/24/2023 6:56 AM CDT Oxygen Saturation 99% 11/24/2023 8:01 AM CDT Inhaled Oxygen Concentration - - Weight 77.1 kg (170 lb) 11/24/2023 6:56 AM CDT Height 157.5 cm (5' 2) 11/24/2023 6:56 AM CDT Body Mass Index 31.09 11/24/2023 6:56 AM CDT Plan of Treatment Health Maintenance Due Date Last Done Comments COVID-19 vaccine series ( season) 2024 07/22/2023, 09/25/2021, 09/04/2021 Influenza for age 9-49 02/09/2024 , 03/20/2012, 03/20/2012, Additional history exists BMI (ht and wt on same day) for age 18+ 07/22/2024 07/22/2023 Depression screening for age 12+ 07/23/2024 07/23/2023, 07/22/2023, 07/22/2023 Tetanus booster 05/31/2027 05/31/2017, 06/11, 02/01/1999, Additional history exists Pap test for age 21-65 07/22/2028 07/22/2023, 2023 Pneumococcal series for age 6-64 Aged Out 07/16/2009, 07/16/2009 No longer eligibl e based on patient's age to complete this topic Tdap Completed 05/31/2017, 06/11, 02/01/1999 HIV for age 15-65 Completed 07/22/2023, (Verified in Care Everywhere or Patient Record) Hepatitis C screening for age 18-79 Completed 07/22/2023 Procedures Procedure Name Priority Date/Time Associated Diagnosis Comments ANTI HIV 1/2 Routine 07/22/2023 11:43 AM FISH FILLETER Screen for STD (sexually transmitted disease) ANTI HCV Routine 07/22/2023 11:43 AM FISH FILLETER Screen for STD (sexually transmitted disease) HPV HIGH RISK Routine 07/22/2023 11:15 AM FISH FILLETER Pap smear for cervical cancer screening from Last 3 Months or Most Recently Relevant to Health Maintenance Results * ANTI HCV (07/22/2023 11:43 AM FISH FILLETER) HEPATITIS C ANTIBODY Non-Reacti ve Non-React ira 07/22/2023 4:39 PM FISH FILLETER [facility] Comment:Please note, per www .CDC.gov: If a patient is known to be at high risk of HCV infection, or is symptomatic, and the physician's suspicion of HCV infection is high, HCV RNA testing is often employed and is of diagnostic value, even after an initial negative anti-HCV test result. Blood BLOOD SPECIMEN / Unknown Venipuncture / Unknown 07/22/2023 11:43 AM FISH FILLETER 07/22/2023 11:43 AM FISH FILLETER Brionna Giang MD SEND OUTS [facility] [address] [place] [address] * ANTI HIV 1/2 (07/22/2023 11:43 AM FISH FILLETER) HIV-1/HIV-2 SCREEN Non-Reacti ve Non-Reacti ve 07/22/2023 4:48 PM FISH FILLETER [facility] Comment:HIV-1 p24 and HIV-1/ HIV-2 Ab Not Detected. Blood BLOOD SPECIMEN / Unknown Venipuncture / Unknown 07/22/2023 11:43 AM FISH FILLETER 07/22/2023 11:43 AM FISH FILLETER Brionna Giang MD SEND OUTS [facility] [address] [place] [address], * HPV HIGH RISK (07/22/2023 11:15 AM FISH FILLETER) TYPE 16 Negative Negative 07/24/2023 5:14 PM FISH FILLETER [facility] TYPE 18 Negative Negative 07/24/2023 5:14 PM FISH FILLETER [facility] OTHER HIGH RISK TYPES Negative Negative 07/24/2023 5:14 PM FISH FILLETER [facility] Other (Cervical) Non-Blood / Unknown 07/22/2023 11:15 AM FISH FILLETER 07/23/2023 9:42 AM FISH FILLETER Narrative [facility] - 07/24/2023 5:14 PM FISH FILLETER HPV types 16, 18, 31, 33, 35, 39, 45, 51, 52, 56, 58, 59, 66 and 68 DNA were undetectable or below the pre-set threshold. Methodology: Gregory Dudley 4800 HPV Test Brionna Giang MD MICROBIOLOGY [facility] [address] [place] [address], from Last 3 Months or Most Recently Relevant to Health Maintenance Advance Directives * Full Code (Latest Code Status on File) Date Activated Date Inactivated Comments 04/17/2013 3:12 AM 04/17/2013 3:22 PM * Full Code Date Activated Date Inactivated Comments 01/05/2011 11:28 PM 01/07/2011 1:31 PM * Full Code Date Activated Date Inactivated Comments 01/05/2011 8:11 AM 01/05/2011 11:28 PM * Full Code Date Activated Date Inactivated Comments 12/21/2010 9:00 PM 12/21/2010 11:20 PM * Full Code Date Activated Date Inactivated Comments 08/21/2010 10:08 PM 08/22/2010 1:01 AM Care Teams Double Backer Relationship Specialty Start [place] [id number] [place] [address] PCP - General Family Practice 07/22/23
--- OUTSIDE RECORDS SUMMARY | 2024-04-04 18:44 | XMS_ITS | Encounter Summary ---
Author Organization [place] Address [address] [place] [address] Care Team Providers Care Printer'S Devil Name Role Phone Anni Nair PA-C Primary Care Provider [phone] Shannan Malcolm UTILITIES EQUIPMENT REPAIRER Unavailable [phone] Nabeel Nolan MD Unavailable [phone] Shannan Malcolm CNP Primary Care Provider [phone] Mattie Tellez APRN UTILITIES EQUIPMENT REPAIRER Unavailable [phone] Encounter Details Date Type Department Care Team (Late st Contact Info) Description 07/05/2022 MyC Medical Advice [facility] [address] [place] [address] Anni Nair PA-C [address] [place] [address] Social History Tobacco Use Types Packs/Day Years Used Date Smoking Tobacco: Former Cigarettes 0 09/22/2013 - 09/22/2017 Smokeless Tobacco: Never Comments:2 cigs socially occ asionally Alcohol Use Standard Drinks/Week Comments Yes 0 (1 standard drink = 0.6 oz pur e alcohol) 0-5 drinks per month PHQ-2 Answer Date Recorded PHQ-2 Score 2 05/31/2022 Comments No Sex and Gender Information Value Date Recorded Sex Assigned at Not on file Legal Sex Female 3:13 AM ANALYSIS MANAGER Gender Identity Female 02/08/2022 7:17 AM CDT Sexual Orientation Choose not to disclose 2021 7:17 AM CDT documented as of this encounter Plan of Treatment Upcoming Encounters Date Type Department Care Team (Late st Contact Info) Description 04/06/2024 7:30 AM CDT Virtual Visit [facility] Mental Health & Addiction [facility] [address] [place] [address] Lexi Farnsworth, REPRODUCTION ARTIST [address] [place], [place] [address] 04/06/2024 8:00 AM CDT Virtual Visit [facility] Mental Health & Addiction [facility] [address] [place] [phone] Mattie Tellez APRN [facility] [address] [place], [place] [address] documented as of this encounter Visit Diagnoses Not on filedocumented in this encounter Additional Health Concerns Assessment Noted Time PHQ-9 Depression Total Score: 16 022 9:07 AM ANALYSIS MANAGER documented as of this encounter Care Teams Printer'S Devil Relationship Specialty Start Date End Date Anni Nair PA-C PCP - General Physician Mental Health Advanced Practice Nurse 10/01/17 07/08/22 Shannan Malcolm CNP [address] [place] [address] 516872 PCP - General Nurse Practitioner - Family 07/09/22 Shannan Malcolm CNP [address] [place] [address] [phone] Assigned PCP 04/07/22 Nabeel Nolan MD [address] [place] [address] 250 [place] [address] Assigned Behavioral Health Provider 06/02/22 09/21/22 Mattie Tellez APRN UTILITIES EQUIPMENT REPAIRER [address] [place] [address] Assigned Behavioral Health Provider 09/22/22 documented as of this encounter
--- OUTSIDE RECORDS SUMMARY | 2024-04-04 18:44 | XMS_ITS | Encounter Summary ---
Author Organization [place] Address [address] [place] [address] Care Team Providers Care Microgrinder Operator Name Role Phone Anni Nair PA-C Primary Care Provider [phone] Shannan Malcolm SHELLFISH MANAGER Unavailable [phone] Nabeel Nolan MD Unavailable [phone] Shannan Malcolm SHELLFISH MANAGER Primary Care Provider [phone] Mattie Tellez APRN SHELLFISH MANAGER Unavailable [phone] Encounter Details Date Type Department Care Team (Late st Contact Info) Description 03/29/2022 MyC Medical Advice [address] [place] [address] Zeynep Del Castillo RN Social History Tobacco Use Types Packs/Day Years [...] or more points; Administer PHQ-9 if positive 1 03/30/2022 Comments No Sex and Gender Information Value Date Recorded Sex Assigned at Not on file Legal Sex Female 3:13 AM TRUCKLOAD CHECKER Gender Identity Female 02/08/2022 7:17 AM CDT Sexual Orientation Choose not to disclose 2021 7:17 AM CDT COVID-19 Exposure Response Date Recorded In the last 10 days, have alexx u been in contact with someone who was confirmed or suspected to have Coronavirus/COVID-19? No / Unsure 03/29/2022 8:13 AM CDT documented as of this encounter Miscellaneous Notes * Telephone Encounter - Maria Antonia Vázquez, RN - 04/02/2022 11:23 AM CDT [place] 03/09/2022 Please see my chart message below Please review and advise Thank you Maria Antonia Vázquez RN, BSN [place] Triage documented in this encounter Plan of Treatment Upcoming Encounters Date Type Department Care Team (Late st Contact Info) Description 04/06/2024 7:30 AM CDT Virtual Visit [facility] Health & Addiction [facility] [address] [place] [address] [address] [place] [address] Lexi Farnsworth, [facility] [address] [facility] [address] [place] [address] 04/06/2024 8:00 AM CDT Virtual Visit [facility] [address] [place] [address] [address] [place] [address] Mattie Tellez, AUTOMOTIVE CUSTOMER EXPERIENCE ADVISOR SHELLFISH MANAGER 500 [place], [place] [address] documented as of this encounter Visit Diagnoses Not on filedocumented in this encounter Additional Health Concerns Infection Onset Date Last Indicated Resolved Time Rule Out COVID-19 03/09/2022 03/09/2022 03/30/2022 11:39 PM CDT Assessment Noted Time PHQ-9 Depression Total Score: 15 022 8:50 AM CDT documented as of this encounter Care Teams Microgrinder Operator Relationship Specialty Start Date End Date Anni Nair PA-C PCP - General Physician Unit Aide Tech 10/01/17 07/08/22 Shannan Malcolm CNP [address] [place] [address] PCP - General Nurse Practitioner - Family 07/09/22 Shannan Malcolm CNP [address] [place] [address] Assigned PCP 04/07/22 Nabeel Nolan MD [address] [place] [address] [phone] Assigned Behavioral Health Provider 06/02/22 09/21/22 Mattie Tellez APRN SHELLFISH MANAGER [address] [place] [address] Assigned Behavioral Health Provider 09/22/22 documented as of this encounter
--- OUTSIDE RECORDS SUMMARY | 2024-04-04 18:44 | XMS_ITS | Encounter Summary ---
Author Organization [place] Address [address] [place] [address] Care Team Providers Care Instructor Tap Dancing Name Role Phone Nabeel Maki MD Primary Care Provider [phone] Noeim Vidal MD Primary Care Provider [phone] Azra Samano APRN EDUCATIONAL FUNDRAISING DIRECTOR Primary Care Provider Unavailable [facility] Primary Care Provider Anni Nair-C Primary Care Provider Anni Nair-C Unavailable [phone] Anni Nair-C Unavailable [phone] Lesli Ham PA-C Unavailable + [phone] Arellano DO Unavailable [phone] Anni Nair-C Unavailable [phone] Shannan Malcolm CNP Unavailable [phone] Shannan Malcolm CNP Unavailable [phone] Nabeel Nolan MD Unavailable [phone] Shannan Malcolm CNP Primary Care Provider [phone] Mattie Tellez APRN EDUCATIONAL FUNDRAISING DIRECTOR Unavailable [phone] Encounter Details Date Type Department Care Team (Late st Contact Info) Description 10/23/[address] [place] [address] Noemi Vidal MD [place] [address] [place] ED/H&P/CONSULT Social History Tobacco Use Types Packs/Day Years [...] on file Legal Sex Female 3:13 AM SKI TOP TRIMMER Gender Identity Female 02/08/2022 7:17 AM CDT Sexual Orientation Choose not to disclose 2021 7:17 AM CDT documented as of this encounter Plan of Treatment Upcoming Encounters Date Type Department Care Team (Late st Contact Info) Description 04/06/2024 7:30 AM CDT Virtual Visit [facility] Mental Health & Addiction [facility] [address] [place] [address] 400 [place] [address] Lexi Farnsworth LICSW [address] [facility] [address] [place], [place] [address] 04/06/2024 8:00 AM CDT Virtual Visit [facility] Mental Health & Addiction [facility] [address] [facility] [address] [place] [address] Mattie Tellez APRN [facility] 500 [place], [place] [address] documented as of this encounter Visit Diagnoses Not on filedocumented in this encounter Additional Health Concerns Infection Onset Date Last Indicated Resolved Time Rule Out COVID-19 03/09/2022 03/09/2022 03/30/2022 11:39 PM CDT documented as of this encounter Care Teams Instructor Tap Dancing Relationship Specialty Start Date End Date Nabeel Maki MD [address] [place] [address] PCP - General 07/25/01 10/25/09 Noemi Vidal MD [address] [place] [address] PCP - General Family Practice 10/26/09 01/19/14 Azra Samano APRN EDUCATIONAL FUNDRAISING DIRECTOR [address] [place] [address] PCP - General Nurse Practitioner 01/20/14 11/08/[address] [address] PCP - General 11/09/15 09/30/17 Anni Nair PA-C [address] [place] [address] PCP - General Physician Access Lead 10/01/17 07/08/22 Anni Nair PA-C [address] [place] [address] [phone] PCP - Assigned PCP 12/09/16 08/12/18 Shannan Malcolm, GROVER [address] [place] [address] PCP - General Nurse Practitioner - Family 07/09/22 Anni Nair PA-C [address] [place] [address] Assigned PCP 12/09/16 11/29/18 Lesli Ham PA-C [address] [place] [address] Assigned PCP 11/30/18 12/06/18 Rd Arellano DO [address] [place] [address] Assigned PCP 12/07/18 04/23/20 Anni Nair PA-C [address] [place] [address] Assigned PCP 04/24/20 10/15/20 Shannan Malcolm, GROVER [address] [place] [address] Assigned PCP 02/24/22 03/16/22 Shannan Malcolm, GROVER [address] [place] [address] Assigned PCP 04/07/[address] [facility] [address] [address] Assigned Behavioral Health Provider 06/02/22 09/21/22 Mattie Tellez APRN EDUCATIONAL FUNDRAISING DIRECTOR [address] [place] [address] Assigned Behavioral Health Provider 09/22/22 documented as of this encounter
--- OUTSIDE RECORDS SUMMARY | 2024-04-04 18:44 | XMS_ITS | Encounter Summary ---
Author Organization [place] Address [address] [place] [address] Care Team Providers Care Community Health Coordinator Name Role Phone Anni Nair PA-C Primary Care Provider [phone] Shannan Malcolm EXECUTIVE SERVICES ADMINISTRATOR Unavailable [phone] Nabeel Nolan MD Unavailable [phone] Shannan Malcolm CNP Primary Care Provider Mattie Tellez APRN EXECUTIVE SERVICES ADMINISTRATOR Unavailable [phone] Encounter Details Date Type Department Care Team (Late st Contact Info) Description 03/30/2022 MyC Medical Advice [address] [place] [address] Shannan Malcolm, EXECUTIVE SERVICES ADMINISTRATOR [address] [place] [address] Social History Tobacco Use Types Packs/Day [...] on file Legal Sex Female 3:13 AM CONCHE LOADER AND UNLOADER Gender Identity Female 02/08/2022 7:17 AM CDT [...] [facility] Mental Health & Addiction [facility] [address] [place] [address] [address] [place] [address] Lexi Farnsworth LICSW [address] [place], [place] [address] 04/06/2024 8:00 AM CDT Virtual Visit [facility] [address] [place] [address] [address] [place] [address] Mattie Tellez, MAIL PROCESSING ASSOCIATE EXECUTIVE SERVICES ADMINISTRATOR 500 [place], [place] [address] documented as of this encounter Visit Diagnoses Not on filedocumented in this encounter Additional Health Concerns Infection Onset Date Last Indicated Resolved Time Rule Out COVID-19 03/09/2022 03/09/2022 03/30/2022 11:39 PM CDT Assessment Noted Time PHQ-9 Depression Total Score: 14 022 10:11 AM CDT documented as of this encounter Care Teams Community Health Coordinator Relationship Specialty Start Date End Date Anni Nair PA-C PCP - General Physician Crisis Worker 10/01/17 07/08/22 Shannan Malcolm, GROVER [address] [place] [address] PCP - General Nurse Practitioner - Family 07/09/22 Shannan Malcolm CNP [address] [place] [address] Assigned PCP 04/07/22 Nabeel Nolan MD [address] [place] [address] [phone] Assigned Behavioral Health Provider 06/02/22 09/21/22 Mattie Tellez APRN EXECUTIVE SERVICES ADMINISTRATOR 500 [place], [place] 46[address] Assigned Behavioral Health Provider 09/22/22 documented as of this encounter
--- OUTSIDE RECORDS SUMMARY | 2024-04-04 18:44 | XMS_ITS | Encounter Summary ---
Author Organization [place] Address [address] [place] [address] Care Team Providers Care Conveyor Belt Installer Name Role Phone Anni Nair PA-C Primary Care Provider [phone] Shannan Malcolm ONION TOPPER Unavailable [phone] Nabeel Nolan MD Unavailable [phone] Shannan Malcolm CNP Primary Care Provider Mattie Tellez APRN ONION TOPPER Unavailable [phone] Encounter Details Date Type Department Care Team (Late st Contact Info) Description 06/12/2022 MyC Medical Advice [address] [place] [address] Shannan Malcolm, ONION TOPPER [address] [place] [address] Social History Tobacco Use Types Packs/Day [...] on file Legal Sex Female 3:13 AM INTERNATIONAL RELATIONS PROFESSOR Gender Identity Female 02/08/2022 7:17 AM CDT Sexual Orientation Choose not to disclose 2021 7:17 AM CDT documented as of this encounter Miscellaneous Notes * Telephone Encounter - Xiomara Jones RN - 06/13/2022 12:44 PM CST FYI to provider. Pt did have a follow up visit Xiomara Siddiqi RN, BSN RNATIONAL RELATIONS PROFESSOR documented in this encounter Plan of Treatment Upcoming Encounters Date Type Department Care Team (Late st Contact Info) Description 04/06/2024 7:30 AM CDT [facility] [address] [place] [address] 400 [place] [address] Lexi Farnsworth LICSW [address] [place], [place] [address] 04/06/2024 8:00 AM CDT Virtual Visit [facility] [address] [place] [address] [address] [place] [address] Mattie Tellez APRN [facility] [address] [place], [place] [phone] documented as of this encounter Visit Diagnoses Not on filedocumented in this encounter Additional Health Concerns Assessment Noted Time PHQ-9 Depression Total Score: 16 05/28/ 022 9:07 AM INTERNATIONAL RELATIONS PROFESSOR documented as of this encounter Care Teams Conveyor Belt Installer Relationship Specialty Start Date End Date Anni Nair PA-C PCP - General Physician Legal Support Analyst 10/01/17 07/08/22 Shannan Malcolm CNP [address] [place] [address] PCP - General Nurse Practitioner - Family 07/09/22 Shannan Malcolm CNP [address] [place] [address] Assigned PCP 04/07/22 Nabeel Nolan MD [facility] [address] [address] Assigned Behavioral Health Provider 06/02/22 09/21/22 Mattie Tellez APRN ONION TOPPER [address] [place] [address] Assigned Behavioral Health Provider 09/22/22 documented as of this encounter
--- OUTSIDE RECORDS SUMMARY | 2024-04-04 18:44 | XMS_ITS | Encounter Summary ---
Author Organization [place] Address [address] [place] [address] Care Team Providers Care Pool Servicer Name Role Phone Anni Nair PA-C Primary Care Provider [phone] Shannan Malcolm BLOOD BANK CREDIT CLERK Unavailable [phone] Nabeel Nolan MD Unavailable [phone] Shannan Malcolm CNP Primary Care Provider Mattie Tellez APRN BLOOD BANK CREDIT CLERK Unavailable [phone] Encounter Details Date Type Department Care Team (Late st Contact Info) Description 03/19/2022 MyC Medical Advice [address] [place] [address] Shannan Malcolm, BLOOD BANK CREDIT CLERK [address] [place] [address] Social History Tobacco Use Types Packs/Day [...] more points; Administer PHQ-9 if positive 1 02/08/2022 Comments No Sex and Gender Information Value Date Recorded Sex Assigned at Not on file Legal Sex Female 3:13 AM SALON SUPERVISOR Gender Identity Female 02/08/2022 7:17 AM CDT Sexual Orientation Choose not to disclose 2021 7:17 AM CDT documented as of this encounter Plan of Treatment Upcoming Encounters Date Type Department Care Team (Late st Contact Info) Description 04/06/2024 7:30 AM CDT Virtual Visit [facility] Mental Health & Addiction [facility] [address] [place] [address] Lexi Farnsworth, [facility] [address] [place] [phone] 04/06/2024 8:00 AM CDT Virtual Visit [facility] Mental Health & Addiction [facility] [address] [place] [address] Mattie Tellez APRN BLOOD BANK CREDIT CLERK 500 [place], [place] [address] documented as of this encounter Visit Diagnoses Not on filedocumented in this encounter Additional Health Concerns Infection Onset Date Last Indicated Resolved Time Rule Out COVID-19 03/09/2022 03/09/2022 03/30/2022 11:39 PM CDT Assessment Noted Time PHQ-9 Depression Total Score: 15 022 8:50 AM CDT documented as of this encounter Care Teams Pool Servicer Relationship Specialty Start Date End Date Anni Nair PA-C PCP - General Physician Motor Vehicle Assembly Supervisor 10/01/17 07/08/22 Shannan Malcolm CNP [address] [place] [address] [id number] PCP - General Nurse Practitioner - Family 07/09/22 Shannan Malcolm CNP [address] [place] [address] [phone] Assigned PCP 04/07/22 Nabeel Nolan MD [address] [place] [address] [phone] Assigned Behavioral Health Provider 06/02/22 09/21/22 Mattie Tellez APRN [facility] 500 [place] [address] Assigned Behavioral Health Provider 09/22/22 documented as of this encounter
--- OUTSIDE RECORDS SUMMARY | 2024-04-04 18:44 | XMS_ITS | Encounter Summary ---
Author Organization [place] Address [address] [place] [address] Care Team Providers Care Transition Manager Name Role Phone Shannan Malcolm CNP Unavailable [phone] Nabeel Nolan MD Unavailable Shannan Malcolm BRANCH EMPLOYMENT COORDINATOR Primary Care Provider [phone] Mattie Tellez APRN BRANCH EMPLOYMENT COORDINATOR Unavailable Reason for Visit * Reason Onset Date Comments MyChart Communication 09/19/2022 Encounter Details Date Type Department Care Team (Late st Contact Info) Description 09/19/2022 MyC Medical Advice [address] [address] Shannan Malcolm, BRANCH EMPLOYMENT COORDINATOR [address] [place] [address] MyChart Communication Social History Tobacco Use [...] on file Legal Sex Female 3:13 AM HELICOPTER SPECIALIST Gender Identity Female 02/08/2022 7:17 AM [...] Encounter - Maria Antonia Vázquez RN - 09/20/2022 10:09 PM CDT Please see my chart message below Please review and advise Thank you Maria Antonia Vázquez RN, BSN Foreman Triage documented in this encounter Plan of Treatment Upcoming Encounters Date Type Department Care Team ([facility] st Contact Info) Description 04/06/2024 7:30 AM CDT Virtual Visit [facility] Mental Health & Addiction [facility] [address] [place] [address] Lexi Farnsworth, [facility] [address] [place], [place] [address] 04/06/2024 8:00 AM CDT Virtual Visit [facility] Mental Health & Addiction [facility] [address] [place] [address] Mattie Tellez APRN BRANCH EMPLOYMENT COORDINATOR 500 [place], [place] [address] documented as of this encounter Visit Diagnoses Not on filedocumented in this encounter Additional Health Concerns Assessment Noted Time PHQ-9 Depression Total Score: 25 023 7:10 AM CDT documented as of this encounter Care Teams Transition Manager Relationship Specialty Start Date End Date Shannan Malcolm CNP [address] [place] [address] PCP - General Nurse Practitioner - Family 07/09/22 Shannan Malcolm, GROVER [address] [place], [place] [address] Assigned PCP 04/07/22 Nabeel Nolan MD [address] [phone] Assigned Behavioral Health Provider 06/02/22 09/21/22 Mattie Tellez APRN BRANCH EMPLOYMENT COORDINATOR 500 [place], [place] [address] Assigned Behavioral Health Provider 09/22/22 documented as of this encounter
--- OUTSIDE RECORDS SUMMARY | 2024-04-04 18:44 | XMS_ITS | Encounter Summary ---
Author Organization [facility] Address [address] [place] [address]. [place] [address] Care Team Providers Care Hydrogen Plant Operations Manager Name Role Phone Shannan Malcolm CNP Unavailable [phone] Shannan Malcolm CNP Primary Care Provider [phone] Mattie Tellez APRN PHARMACY TECHNICIAN INSTRUCTOR Unavailable [phone] Encounter Details Date Type Department Care Team (Late st Contact Info) Description 12/14/2022 MyC Medical Advice [facility] Mental Health & Addiction [facility] [address] [address] [place] [address] Mattie Tellez APRN PHARMACY TECHNICIAN INSTRUCTOR [address] [facility] [place], [place] [address] CATHY (generalized anxiety disorder) Social History Tobacco [...] on file Legal Sex Female 3:13 AM ENDOCRINOLOGY SPECIALIST Gender Identity Female 02/08/2022 7:17 AM CDT Sexual Orientation Choose not to disclose 2021 7:17 AM CDT documented as of this encounter Miscellaneous Notes * Telephone Encounter - Marcos Grijalva RN - 12/14/2022 3:11 PM CDT RN received a Fan TVt message from this patient indicating she has had increased anxiety and had only 2 Ativan left. RN phoned the patient who expressed the followin. Melisa reports that she has been working with Mattie Tellez CNP to manage her mental health symptoms. She has had a increase in anxiety lately. She stated, My anxiety has been really bad lately. Mattie is aware of my issues. My main stressors are that I am going through a job change and continue to try to cope with a history of trauma. 2. The patient reports she has been using coping skills of meditation, pacing, and other holistic exercises. She continues to attend her AA meetings and [facility] 3. The patient reports that Mattie Tellez CNP has been been slowly decreasing her Ativan due to risk for dependence. She has a history of alcohol abuse. Her last prescription was for LORazepam (ATIVAN)0.5 MG tablet Take 1 tablet (0.5 mg) by mouth daily as needed for anxiety # 5 tabs filled 12/10/22. Melisa reports being down to her last 2 tablets. She is hoping to speak to Mattie Tellez CNP about incr easing her prescription amount back to 10 tablets. 4. RN instructed her that Mattie Tellez CNP is out of the office today and will return early next week. The patient is requesting a short bridge of LORazepam (ATIVAN) 0.5 MG tablet through the weekend until she can communicate about this with Mattie Tellez CNP next week. She asked that this note be reviewed by the Provider Pool. The patient is requesting a bridge prescription of 5 tablets. RN instructed the patient that he would forward her request to the Provider Pool as requested and to please wait for their reply. 5. Mattie Orantes last treatment note from 12/10/22 TREATMENT PLAN: Medications: ??? DISCONTINUE propranolol 10 mg. ??? START guanfacine ER 1 mg at bedtime. Script sent for #30. ??? CONTINUE methlyphenidate??27??mg??every day. Script sent??for 1 month. ??? CONTINUE??desvenlafaxine (Pristiq) 50 mg every day. Script sent for #30.? CONTINUE lorazepam 0.5 mg as needed only for severe anxiety. To be used sparingly. Script sent for #5. Continue all other medications per primary care provider.?? documented in this encounter Plan of Treatment Upcoming Encounters Date Type Department Care Team (Late st Contact Info) Description 04/06/2024 7:30 AM CDT Virtual Visit [facility] & [facility] [address] [place] [address] 400 [place] [address] Lexi Farnsworth, [facility] [address] [place], [place] [address] 04/06/2024 8:00 AM CDT Virtual Visit [facility] Health & Addiction [facility] [address] [place] [address] [address] [place] [address] Mattie Tellez APRN PHARMACY TECHNICIAN INSTRUCTOR 500 [place], [place] [address] documented as of this encounter Visit Diagnoses Diagnosis CATHY (generalized anxiety disorder) Generalized anxiety disorder documented in this encounter Additional Health Concerns Assessment Noted Time PHQ-9 Depression Total Score: 4 12/11/19 23 7:53 AM CDT documented as of this encounter Care Teams Hydrogen Plant Operations Manager Relationship Specialty Start Date End Date Shannan aMlcolm CNP [address] [place] [address] PCP - General Nurse Practitioner - Family 07/09/22 Shannan Malcolm CNP [address] [place] [address] Assigned PCP 04/07/22 Mattie Tellez APRN PHARMACY TECHNICIAN INSTRUCTOR 500 [place] [address] Assigned Behavioral Health Provider 09/22/22 documented as of this encounter
--- OUTSIDE RECORDS SUMMARY | 2024-04-04 18:44 | XMS_ITS | Encounter Summary ---
Author Organization [facility] Address [address] [place] [address] Care Team Providers Care Quill Fixer Name Role Phone Anni Nair PA-C Primary Care Provider + [phone] Shannan Malcolm INWEAVER Unavailable [phone] Shannan Malcolm CNP Unavailable [phone] Nabeel Nolan MD Unavailable [phone] Shannan Malcolm CNP Primary Care Provider [phone] Mattie Tellez APRN INWEAVER Unavailable [phone] Reason for Visit * Reason Onset Date Comments MyChart Communication 03/05/2022 Encounter Details Date Type Department Care Team (Late st Contact Info) Description 03/05/2022 MyC Medical Advice [address] [address] Shannan Malcolm, INWEAVER [address] [place] [address] MyChart Communication Social History Tobacco Use [...] on file Legal Sex Female 3:13 AM NUCLEAR OPERATOR Gender Identity Female 02/08/2022 7:17 AM CDT Sexual Orientation Choose not to disclose 2021 7:17 AM CDT COVID-19 Exposure Response Date Recorded In the last 10 days, have yo u been in contact with someone who was confirmed or suspected to have Coronavirus/COVID-19? No / Unsure 02/16/2022 10:29 AM CDT documented as of this encounter Miscellaneous Notes * Telephone Encounter - Shannan Malcolm CNP - 03/12/2022 12:48 PM CDT Form is completed * Telephone Encounter - Maria Antonia Vázquez RN - 03/06/2022 2:37 PM CDT Please see my chart message below Please review and advise Thank you Maria Antonia Vázquez RN, BSN [place] Triage documented in this encounter Plan of Treatment Upcoming Encounters Date Type Department Care Team (Late st Contact Info) Description 04/06/2024 7:30 AM CDT Virtual Visit [facility] Mental Health & Addiction [facility] [address] [place] [address] [address] [place] [address] Lexi Farnsworth, [facility] [address] [place], [place] [address] 04/06/2024 8:00 AM CDT Virtual Visit [facility] Mental Health & Addiction [facility] [address] [place] [address] Mattie Tellez APRN INWEAVER 500 [place], [place] [address] documented as of this encounter Visit Diagnoses Not on filedocumented in this encounter Additional Health Concerns Infection Onset Date Last Indicated Resolved Time Rule Out COVID-19 03/09/2022 03/09/2022 03/30/2022 11:39 PM CDT Assessment Noted Time PHQ-9 Depression Total Score: 15 022 8:50 AM CDT documented as of this encounter Care Teams Quill Fixer Relationship Specialty Start Date End Date Anni Nair PA-C PCP - General Physician Religion Teacher 10/01/17 07/08/22 Shannan Malcolm CNP [address] [place] [address] PCP - General Nurse Practitioner - Family 07/09/22 Shannan Malcolm CNP [address] [place] [address] Assigned PCP 02/24/22 03/16/22 Shannan Malcolm CNP [address] [place] [address] 069632 Assigned PCP 04/07/22 Nabeel Nolan MD [address] [place] [address] [id number] Assigned Behavioral Health Provider 06/02/22 09/21/22 Mattie Tellez APRN INWEAVER [address] [place] [address] 163125 Assigned Behavioral Health Provider 09/22/22 documented as of this encounter
--- OUTSIDE RECORDS SUMMARY | 2024-04-04 18:44 | XMS_ITS | Encounter Summary ---
Author Organization [facility] Address [address] [place] [address] Care Team Providers Care Health Care Sanitary Technician Name Role Phone Anni Nair PA-C Primary Care Provider [phone] Shannan Malcolm METER RECORD CLERK Unavailable [phone] Nabeel Nolan MD Unavailable [phone] Shannan Malcolm CNP Primary Care Provider Mattie Tellez APRN METER RECORD CLERK Unavailable [phone] Encounter Details Date Type Department Care Team (Late st Contact Info) Description 06/14/2022 MyC Medical Advice [address] [place] [address] Shannan Malcolm, METER RECORD CLERK [address] [place] [address] Social History Tobacco Use Types Packs/Day [...] on file Legal Sex Female 3:13 AM FUNCTIONAL TESTER Gender Identity Female 02/08/2022 7:17 AM CDT Sexual Orientation Choose not to disclose 2021 7:17 AM CDT documented as of this encounter Plan of Treatment Upcoming Encounters Date Type Department Care Team (Late st Contact Info) Description 04/06/2024 7:30 AM CDT [facility] [address] [place] [address] Lexi Farnsworth, [facility] [address] [place], [place] [address] 04/06/2024 8:00 AM CDT Virtual Visit [facility] & [facility] [address] [place] [address] Mattie Tellez APRN METER RECORD CLERK 500 [place], [place] [address] documented as of this encounter Visit Diagnoses Not on filedocumented in this encounter Additional Health Concerns Assessment Noted Time PHQ-9 Depression Total Score: 16 022 9:07 AM FUNCTIONAL TESTER documented as of this encounter Care Teams Health Care Sanitary Technician Relationship Specialty Start Date End Date Anni Nair PA-C PCP - General Physician Canal Lock Tender Chief Operator 10/01/17 07/08/22 Shannan Malcolm CNP [address] [place] [address] 806302 PCP - General Nurse Practitioner - Family 07/09/22 Shannan Malcolm CNP [address] [place] [address] 080892 Assigned PCP 04/07/22 Nabeel Nolan MD [facility]5 [facility] 250 [place] [address] Assigned Behavioral Health Provider 06/02/22 09/21/22 Mattie Tellez APRN METER RECORD CLERK 500 [place], [place] [address] Assigned Behavioral Health Provider 09/22/22 documented as of this encounter
--- OUTSIDE RECORDS SUMMARY | 2024-04-04 18:44 | XMS_ITS | Encounter Summary ---
Author Organization [facility] Address [address] [place] [address] Care Team Providers Care Saloonkeeper Name Role Phone Shannan Malcolm CNP Unavailable [phone] Shannan Malcolm CNP Primary Care Provider + [phone] Mattie Tellez APRN BAKING ASSISTANT Unavailable [phone] Reason for Visit * Reason Onset Date Comments Refill Request 10/07/2022 Encounter Details Date Type Department Care Team (Late st Contact Info) Description 10/07/2022 MyC Refill [facility] Mental Health & Addiction [facility] [address] [address] [place] [address] Mattie Tellez, [place]ARIE BAKING ASSISTANT 500 [place] [address] Refill Request Social History Tobacco [...] on file Legal Sex Female 3:13 AM MILK WAGON DRIVER Gender Identity Female 02/08/2022 7:17 AM CDT Sexual Orientation Choose not to disclose 2021 7:17 AM CDT COVID-19 Exposure Response Date Recorded In the last 10 days, have yo u been in contact with someone who was confirmed or suspected to have Coronavirus/COVID-19? No / Unsure 09/10/2022 3:17 PM CDT documented as of this encounter Miscellaneous Notes * Telephone Encounter - Marcos Grijalva, RN - 10/09/2022 2:36 PM CDT Refill request for Ativan 0.5 mg submitted in other encounter. documented in this encounter Plan of Treatment Upcoming Encounters Date Type Department Care Team (Late st Contact Info) Description 04/06/2024 7:30 AM CDT Virtual Visit [facility] & Addiction [facility] [address] [place] [address] 400 [place] [address] Lexi Farnsworth, [facility] [address] [facility] 200 [place], [place] [address] 04/06/2024 8:00 AM CDT Virtual Visit [facility] & Addiction [facility] [address] [place] [address] 400 [place] [address] Mattie Tellez APRN BAKING ASSISTANT 500 [place], [place] [address] documented as of this encounter Visit Diagnoses Diagnosis Anxiety Anxiety state, unspecified Panic attack Panic disorder without agoraphobia documented in this encounter Additional Health Concerns Assessment Noted Time PHQ-9 Depression Total Score: 25 023 7:10 AM CDT documented as of this encounter Care Teams Saloonkeeper Relationship Specialty Start Date End Date Shannan Malcolm CNP [address] [place] [address] PCP - General Nurse Practitioner - Family 07/09/22 Shannan Malcolm CNP [address] [place] [address] Assigned PCP 04/07/22 Mattie Tellez APRN BAKING ASSISTANT 500 [place] [address] Assigned Behavioral Health Provider 09/22/22 documented as of this encounter
--- OUTSIDE RECORDS SUMMARY | 2024-04-04 18:44 | XMS_ITS | Encounter Summary ---
Author Organization [facility] Address [address] [place] [address] Care Team Providers Care Policy And Planning Manager Name Role Phone Shannan Malcolm CNP Unavailable [phone] Nabeel Nolan MD Unavailable Shannan Malcolm STEVEDORING SUPERINTENDENT Primary Care Provider [phone] Mattie Tellez APRN STEVEDORING SUPERINTENDENT Unavailable [phone] Reason for Visit * Reason Onset Date Comments Prior Auth - Medication 09/21/2022 Methylph enidate HCI ER (OSM) 18MG ER Tablets Encounter Details Date Type Department Care Team (Late st Contact Info) Description 09/21/[address] [address] Shannan Malcolm, STEVEDORING SUPERINTENDENT [address] [place] [address] Prior Auth - Medication (Methylphenidate HCI ER (OSM) 18MG ER Tablets) Social History Tobacco Use Types Packs/Day Years [...] on file Legal Sex Female 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 No / Unsure 09/10/2022 3:17 PM CDT documented as of this encounter Miscellaneous Notes * Telephone Encounter - Cindy Kilpatrick RN - 09/27/2022 11:41 AM CDT Routing to provider FYI: Patient states Strattera also not covered and is more expensive than the Methylphenidate so she will stick with the Methylphenidate instead. Billposter advised good RX, patient said she will look and will let us know if she changes her mind re: Strattera but for now is paying OOP for generic Concerta. * Telephone Encounter - Shannan Malcolm CNP - 09/27/2022 10:51 AM CDT Alternative sent. Please notify patient. Can look at Good Rx cost if expense is high. Other medication not covered. Shannan Malcolm CNP * Telephone Encounter - Deysi Martel CMA - 09/27/2022 10:31 AM CDT PA denied do you want to do an appeal. Please advise. Deysi Martel CMA * Telephone Encounter - Noemi Cortes - 09/26/2022 6:32 PM CDT Images from the original note were not included. PRIOR AUTHORIZATION DENIED Medication: Methylphenidate HCI ER (OSM) 18MG ER Tablets Denial Date: 09/26/2022 Denial Rational: Appeal Information: * Telephone Encounter - Neomi Cortes - 09/26/2022 11:52 AM CDT Images from the original note were not included. Central Prior Authorization Team PA Initiation Medication: Methylphenidate HCI ER (OSM) 18MG ER Tablets Insurance Company: [employer] - Pharmacy Filling the Rx: [facility] - [place], [place] - [address] Filling Pharmacy Filling Pharmacy Fax: Start Date: 09/26/2022 * Telephone Encounter - Eldon Frost - 09/24/2022 2:41 PM CDT Prior Authorization Retail Medication Request Medication/Dose: [facility] PA for Methylphenidate HCI ER (OSM) 18MG ER Tablets ICD code (if different than what is on RX): Previously Tried and Failed: Rationale: Insurance Name: Insurance ID: Pharmacy Information (if different than what is on RX) Name: [facility] Phone: [phone] * Telephone Encounter - Abrahan Velez - 09/21/2022 2:22 PM CDT Forms/Letter Request Type of form/letter: [facility] PA for Methylphenidate HCI ER (OSM) 18MG ER Tablets Have you been seen for this request: N/A Do we have the form/letter: Yes: Placed in TC bin (yellow folder) Who is the form from? [facility] PA for Methylphenidate HCI ER (OSM) 18MG ER Tablets (if otherplease explain) Where did/will the form come from? form was faxed in documented in this encounter Plan of Treatment Upcoming Encounters Date Type Department Care Team (Late st Contact Info) Description 04/06/2024 7:30 AM CDT Virtual Visit [facility] Mental Health & Addiction [facility] [address] [place] [address] Javad, Lexi, [facility] [address] [place], [place] [address] 04/06/2024 8:00 AM CDT Virtual Visit [facility] Mental Health & Addiction [facility] [address] [place] [address] Mattie Tellez APRN STEVEDORING SUPERINTENDENT 500 [place], [place] [address] documented as of this encounter Visit Diagnoses Diagnosis Attention deficit hyperactivity disorder (ADHD), predominantly inattentive type- Primary documented in this encounter Additional Health Concerns Assessment Noted Time PHQ-9 Depression Total Score: 25 023 7:10 AM CDT documented as of this encounter Care Teams Policy And Planning Manager Relationship Specialty Start Date End Date Shannan Malcolm CNP [address] [place] [address] PCP - General Nurse Practitioner - Family 07/09/22 Shannan Malcolm CNP [address] [place] [address] Assigned PCP 04/07/22 Nabeel Nolan MD [address] [place] [address] 250 [place], [place] [address] Assigned Behavioral Health Provider 06/02/22 09/21/22 Mattie Tellez APRN STEVEDORING SUPERINTENDENT [address] [place] [address] Assigned Behavioral Health Provider 09/22/22 documented as of this encounter
--- OUTSIDE RECORDS SUMMARY | 2024-04-04 18:44 | XMS_ITS | Encounter Summary ---
Author Organization [facility] Address [address] [place] [address] Care Team Providers Care Sap Basis Administrator Name Role Phone Anni Nair PA-C Primary Care Provider [phone] Shannan Malcolm MANAGER USER EXPERIENCE Unavailable [phone] Nabeel Nolan MD Unavailable [phone] Shannan Malcolm CNP Primary Care Provider [phone] Mattie Tellez APRN MANAGER USER EXPERIENCE Unavailable [phone] Encounter Details Date Type Department Care Team (Late st Contact Info) Description 07/08/2022 MyC Medical Advice [facility] [address] [place] [phone] [place] [address] [place], [place] [phone] Social History Tobacco Use Types Packs/Day Years [...] on file Legal Sex Female 3:13 AM 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 Gender Identity Female 02/08/2022 7:17 AM CDT Sexual Orientation Choose not to disclose 2021 7:17 AM CDT documented as of this encounter Plan of Treatment Upcoming Encounters Date Type Department Care Team (Late st Contact Info) Description 04/06/2024 7:30 AM CDT Virtual Visit [facility] Mental Health & Addiction [facility] [address] [place] [address] Lexi Farnsworth, PROGRAMMING DIRECTOR [address] [place], [place] [id number] 04/06/2024 8:00 AM CDT Virtual Visit [facility] Health & Addiction [facility] [address] [place] [address] Mattie Tellez APRN [facility] 500 [place], [place] [address] documented as of this encounter Visit Diagnoses Not on filedocumented in this encounter Additional Health Concerns Assessment Noted Time PHQ-9 Depression Total Score: 16 022 9:07 AM 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 POSTER documented as of this encounter Care Teams Sap Basis Administrator Relationship Specialty Start Date End Date Anni Nair PA-C PCP - General Physician Drive Shaft And Steering Post Repairer 10/01/17 07/08/22 Shannan Malcolm CNP [address] [place] [address]642 PCP - General Nurse Practitioner - Family 07/09/22 Shannan Malcolm CNP [address] [place] [address] Assigned PCP 04/07/22 Nabeel Nolan MD [facility] [address] [place] [address] Assigned Behavioral Health Provider 06/02/22 09/21/22 Mattie Tellez APRN MANAGER USER EXPERIENCE 500 [place] [address] Assigned Behavioral Health Provider 09/22/22 documented as of this encounter
--- OUTSIDE RECORDS SUMMARY | 2024-04-04 18:44 | XMS_ITS | Encounter Summary ---
Author Organization [facility] Address [address] [place] [address] Care Team Providers Care Sales Route Driver Helper Name Role Phone Shannan Malcolm CNP Unavailable [phone] Nabeel Nolan MD Unavailable [phone] Shannan Malcolm CNP Primary Care Provider + [phone] Mattie Tellez APRN SAMPLE MAKER ORIGINAL Unavailable [phone] Encounter Details Date Type Department Care Team (Late st Contact Info) Description 08/11/2022 Telephone [facility] [address], [address] [place] [address] Fadumo Doe Social History Tobacco Use Types Packs/Day Years [...] on file 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 Yes 07/16/2022 4:46 PM IT PROJECT LEAD documented as of this encounter Miscellaneous Notes * Telephone Encounter - Leo Franco - 08/11/2022 12:34 PM CST Reached out to patient to schedule New Seizure, phone number in chart no longer valid. Unable to leave message. PROJECT LEAD documented in this encounter Plan of Treatment Upcoming Encounters Date Type Department Care Team (Late st Contact Info) Description 04/06/2024 7:30 AM CDT Virtual Visit [facility] Health [facility] [address] [place] [address] 400 [place] [address] Lexi Farnsworth, PUNCH OUT CREW MEMBER [address] [place], [place] [address] 04/06/2024 8:00 AM CDT Virtual Visit [facility] [address] [address] [place] [address] Mattie Tellez APRN SAMPLE MAKER ORIGINAL 500 [place], [place] [address] documented as of this encounter Visit Diagnoses Not on filedocumented in this encounter Additional Health Concerns Assessment Noted Time PHQ-9 Depression Total Score: 16 023 7:10 AM CDT documented as of this encounter Care Teams Sales Route Driver Helper Relationship Specialty Start Date End Date Shannan Malcolm CNP [address] [place] [address] PCP - General Nurse Practitioner - Family 07/09/22 Shannan Malcolm CNP [address] [place] [address] Assigned PCP 04/07/22 Nabeel Nolan MD [facility] [address] Assigned Behavioral Health Provider 06/02/22 09/21/22 Mattie Tellez APRN [facility] 500 [place] [address] Assigned Behavioral Health Provider 09/22/22 documented as of this encounter
--- OUTSIDE RECORDS SUMMARY | 2024-04-04 18:44 | XMS_ITS | Encounter Summary ---
Author Organization [facility] Address [address] [place] [address] Care Team Providers Care Knot Picker Cloth Name Role Phone Azra Samano APRN, CNP Primary Care Provider Unavailable [facility] Primary Care Provider Anni Nair-C Primary Care Provider Anni Nair-C Unavailable [phone] Anni Nair-C Unavailable [phone] Lesli Ham-C Unavailable Rd Arellano DO Unavailable Anni Nair-C Unavailable [phone] Shannan Malcolm CNP Unavailable [phone] Shannan Malcolm CNP Unavailable [phone] Nabeel Nolan MD Unavailable [phone] Shannan Malcolm CNP Primary Care Provider Mattie Tellez APRN PHYSICIAN ASSISTANT SURGERY Unavailable [phone] Reason for Visit * Reason Onset Date Comments Outreach 07/27/2015 [facility] att 1 Encounter Details Date Type Department Care Team (Late st Contact Info) Description 07/27/[address] [address] Azra Samano APRN PHYSICIAN ASSISTANT SURGERY NO INFO AVAILABLE 08/06/2022 Outreach ([facility] att 1) Social History Tobacco Use Types Packs/Day Years Used Date Smoking Tobacco: Every Day Cigarettes Smokeless Tobacco: Never Comments:2 cigs socially occ asionally Alcohol Use Standard Drinks/Week Comments Yes 0 (1 standard drink = 0.6 oz pur e alcohol) rarely Comments No Sex and Gender Information Value Date Recorded Sex Assigned at Not on file Legal Sex Female 3:13 AM SOCK LINER Gender Identity Female 02/08/2022 7:17 AM CDT Sexual Orientation Choose not to disclose 2021 7:17 AM CDT documented as of this encounter Miscellaneous Notes * Telephone Encounter - Michael Benoit - 07/27/2015 5:54 PM CST 07/27/15 Call Regarding Preventive Health Screening Cervical/PAP Attempt 1 Message on male Comments: Outreach Pharmacy Assistant cnt LINER documented in this encounter Plan of Treatment Upcoming Encounters Date Type Department Care Team (Late st Contact Info) Description 04/06/2024 7:30 AM CDT Virtual Visit [facility] Mental Health & Addiction [facility] [address] [place] [address] [address] [place] [address] Lexi Farnsworth, BEER STILL RUNNER COMPOUNDER [address] [facility] [address] [place], [place] [address] 04/06/2024 8:00 AM CDT Virtual Visit [facility] [address] [address] [place] [address] Mattie Tellez APRN PHYSICIAN ASSISTANT SURGERY 500 [place], [place] 24[address]85 documented as of this encounter Visit Diagnoses Not on filedocumented in this encounter Additional Health Concerns Infection Onset Date Last Indicated Resolved Time Rule Out COVID-19 03/09/2022 03/09/2022 03/30/2022 11:39 PM CDT Assessment Noted Time PHQ-9 Depression Total Score: 14 01/12/2 016 8:04 AM SOCK LINER documented as of this encounter Care Teams Knot Picker Cloth Relationship Specialty Start Date End Date Azra Samano APRN PHYSICIAN ASSISTANT SURGERY PCP - General Nurse Practitioner 01/20/14 11/08/[address] [address] PCP - General 11/09/15 09/30/17 Anni Nair PA-C [address] [place] [address] PCP - General Physician Glass Processing Worker 10/01/17 07/08/22 Anni Nair PA-C [address] [place] [address] PCP - Assigned PCP 12/09/16 08/12/18 Shannan Malcolm CNP [address] [place] [address] PCP - General Nurse Practitioner - Family 07/09/22 Anni Nair PA-C [address] [place] [address] Assigned PCP 12/09/16 11/29/18 Lesli Ham PA-C [address] [place] [address] Assigned PCP 11/30/18 12/06/18 Rd Arellano DO [address] [place] [address] Assigned PCP 12/07/18 04/23/20 Anni Nair PA-C [address] [facility] [place] [address] Assigned PCP 04/24/20 10/15/20 Shannan Malcolm, GROVER [address] [place] [address] 805472 Assigned PCP 02/24/22 03/16/22 Shannan Malcolm, GROVER [address] [place] [address] 415142 Assigned PCP 04/07/22 Nabeel Nolan MD [address] [place] [address] [id number] Assigned Behavioral Health Provider 06/02/22 09/21/22 Mattie Tellez APRN PHYSICIAN ASSISTANT SURGERY [address] [place] [address] Assigned Behavioral Health Provider 09/22/22 documented as of this encounter
[2024-04-04] MEDS: ONDANSETRON 2 MG/ML inj 4 MG IVP ×2 (18:45→22:19)
[2024-04-04] MEDS: MORPHINE 4 MG/ML INJ IVP ×2 (18:45→19:32)
[2024-04-04] MEDS: KETOROLAC 15 MG/ML inj IVP (18:46)
[2024-04-04 18:51] LABS: Lactate Sepsis w/Reflex* 1.2 mmol/L (0.5-1.9)
[2024-04-04 18:53] LABS: Basophils Absolute Auto 0.02 K/uL (0.00-0.30); Basophils Percent Auto 0.3 % (0.0-3.0); Eosinophils Absolute Auto 0.13 K/uL (0.00-0.50); Eosinophils Percent Auto 1.6 % (0.0-7.0); Hematocrit 38.7 % (33.0-51.0); Hemoglobin* 12.8 gm/dL (12.0-16.0); Immature Granulocytes Abs Auto 0.03 K/uL (0.00-0.30); Immature Granulocytes Pct Auto 0.4 %; Lymphocytes Absolute Auto 2.81 K/uL (0.90-2.90); Lymphocytes Percent Auto 35.7 % (20-44); Mean Corpuscular HGB Conc 33 gm/dL (32-36); Mean Corpuscular Hemoglobin 29 pg (26-34); Mean Corpuscular Volume 88 fL (80-100); Monocytes Percent Auto 5.8 % (0.0-11.0); Neutrophils Absolute Auto 4.43 K/uL (1.7-7.0); Neutrophils Percent Auto 56.2 % (42.0-72.0); Platelet Count* 360 K/uL (140-440); Red Blood Count 4.42 m/uL (4.00-5.20); Slide Review Reflex No; White Blood Count* 7.88 K/uL (4.50-11.00)
[2024-04-04 19:06] LABS: Albumin* 4.8 g/dL (3.3-5.0); Chloride* 104 mmol/L (96-114); Sodium* 138 mmol/L (135-149)
[2024-04-04 19:07] LABS: Potassium* 3.8 mmol/L (3.6-5.1)
[2024-04-04 19:10] LABS: Alanine Aminotransferase* 21 U/L (4-35); Alkaline Phosphatase* 83 U/L (40-150); Anion Gap 9 mEq/L (7-15); Aspartate Amino Transferase* 22 U/L (12-35); Bilirubin Direct* 0.1 mg/dL (0.0-0.5); Bilirubin Total* 0.2 mg/dL (0.1-1.5); Blood Urea Nitrogen* 17 mg/dL (5-24); Calcium* 9.6 mg/dL (8.4-10.6); Carbon Dioxide* 25 mmol/L (20-32); Creatinine* 0.6 mg/dL (0.5-1.5); Est. Creatinine Clearance* 101.53; Estimated Glomerular Filt Rate 118 ml/min; Glucose* 99 mg/dL (60-115); Lipase* 103 U/L (23-300); Total Protein* 7.9 g/dL (6.0-8.3)
[2024-04-04 19:13] LABS: C Reactive Protein* < 0.5 mg/dL (0.5-1.0)
[2024-04-04 19:30] VITALS: PULSE 97; RESP 12; O2SAT 100
[2024-04-04 20:06] LABS: Appearance Urine Slightly Cloudy (Clear); Bilirubin Urine Negative (Negative); Blood Urine Negative (Negative); Color Urine Yellow (Yellow); Glucose Urine Negative (Negative); Ketones Urine Negative (Negative); Leukocyte Esterase Urine Negative (Negative); Nitrite Urine Negative (Negative); Protein Urine Negative (Negative); Urobilinogen Urine 0.2 (0.2-1.0)
[2024-04-04] MEDS: levoFLOXacin 500 MG/100 ML D5W 500 MG/100 ML PIGGYBACK 100 MG IVPB (20:08)
[2024-04-04 20:09] LABS: Ur HCG Qualitative* Negative (Negative)
[2024-04-04 20:10] VITALS: BP 139/95; PULSE 93; RESP 16; O2SAT 100
[2024-04-04 20:13] LABS: RBC Urine 0-2 (0-2); WBC Urine 0-2 (0-5)
[2024-04-04 20:14] LABS: Bacteria Urine Few; Squamous Epithelial Cell Urine Moderate (None-Few)
[2024-04-04] MEDS: LORazepam 1 MG TABLET PO (20:25)
[2024-04-04] MEDS: HYDROmorphone 0.5 mg/0.5 ml inj 0.2 MG IVP (22:22)
[2024-04-04 22:23] VITALS: BP 132/88; PULSE 82; RESP 15; O2SAT 99
[2024-04-04 23:00] VITALS: BP 132/88; PULSE 82; RESP 14; O2SAT 98
[2024-04-05] VITALS (17 sets, daily range): BP systolic 121–139; BP diastolic 76–113; PULSE 66–97; RESP 12–19; TEMP 36.6–36.7; O2SAT 69–100
[2024-04-05] MEDS: HYDROmorphone 0.5 mg/0.5 ml inj 0.2 MG IVP ×2 (00:34→04:30)
[2024-04-05] MEDS: ONDANSETRON 2 MG/ML inj 4 MG IVP (04:30)
[2024-04-05] MEDS: LORazepam 2 MG/ML inj 0.5 MG IVP ×2 (04:57→13:20)
--- OUTSIDE RECORDS SUMMARY | 2024-04-05 07:30 | XMS_ITS | Referral Summary ---
Author Organization [place] Address [address] [place] [address] Care Team Providers Care Manager Education Name Role Phone Shannan Malcolm CNP Unavailable [phone] Shannan Malcolm CNP Primary Care Provider [phone] Mattie Tellez APRN, CNP Unavailable [phone] Encounters Date Type Department Care Team Description 03/29/2024 MyC Refill [facility] Mental Health & Addiction [facility] [address] [phone] Mattie Tellez APRN CNP Refill Request 03/29/2024 MyC Refill [address] [address] Shannan Malcolm CNP Refill Request 03/25/2024 MyC Medical Advice [facility] Mental Health & Addiction [facility] [address] [phone] Mattie Tellez APRN CNP 03/17/2024 Orders Only [facility] [address] [phone] Mattie Tellez APRN CNP Generalized anxiety disorder with panic attacks (Primary Dx) 03/16/2024 MyC Refill [facility] [address] [phone] Mattie Tellez APRN CNP Refill Request 03/14/2024 MyC Medical Advice [facility] [address] [place] [phone] Mattie Tellez APRN CNP Medication Request (Change anti-anxiety me... 03/09/2024 MyC Refill [facility] [address] [place] [address] [address] [place] [phone] Mattie Tellez APRN CNP Refill Request (Focalin 5 mg) 03/02/2024 1:00 PM CDT Virtual Visit [address] [place] [phone] Shannan Malcolm CNP Infection due to 2019 novel coronavirus (Primary Dx); Mild intermittent asthma without complication 03/02/[address] [place] [address] Shannan Malcolm CNP 02/26/2024 MyC Medical Advice [facility] [place] [phone] [phone] Betty [place] 02/24/[address] [facility] [place] [phone] Shannan Malcolm CNP Refill Request (Prozac 40) 02/24/2024 MyC Refill [facility] [address] [place] [phone] Mattie Tellez APRN CNP Refill Request 02/24/2024 10:30 AM CDT Virtual Visit [facility] [address] [place] [address] [address] [place] [phone] Mattie Tellez APRN CNP Generalized anxiety disorder with panic attacks (Primary Dx); PTSD (post-traumatic stress disorder); Attention deficit hyperactivity disorder (ADHD), predominantly inattentive type; Alcohol use disorder in remission; MDD (major depressive disorder), recurrent episode, mild (H) 02/17/2024 MyC Refill [facility] [address] [place] [address] [address] [place] [phone] Mattie Tellez APRN CNP Refill Request (dexmethylphenidate (FOCALI... 02/17/2024 MyC Refill [facility] [address] [place] [address] [address] [place] [phone] Mattie Tellez APRN CNP Refill Request (dexmethylphenidate (FOCALI... 01/27/2024 8:00 AM CDT Virtual Visit [facility] [address] [place] [address] [address] [place] [phone] Mattie Tellez APRN CNP Generalized anxiety disorder with panic attacks (Primary Dx); PTSD (post-traumatic stress disorder); Alcohol use disorder in remission; MDD (major depressive disorder), recurrent episode, mild (H); Attention deficit hyperactivity disorder (ADHD), predominantly inattentive type 01/23/2024 MyC Refill [facility] [address] [place] [address] [address] [place] [phone] Mattie Tellez APRN CNP Refill Request (lorazepam (ATIVAN) 0.5 MG ... 01/17/2024 MyC Medical Advice [facility] [address] [place] [address] [address] [place] [phone] Mtatie Tellez APRN CNP 01/10/2024 Orders Only [facility] [address] [place] [address] [address] [place] [phone] Mattie Tellez APRN CNP CATHY (generalized anxiety disorder) 01/10/2024 MyC Medical Advice [facility] [address] [place] [address] [address] [place] [address] Mattie Tellez, MUSIC DEPARTMENT CHAIR CIGAR MAKING MACHINE SUPERVISOR Medication not working (Diazepam ) from Last [...] Patient is followed by Azra Shine NP, REMOTE ENCODING CENTER MANAGER for ongoing prescription of a controlled medicine. [...] on file Legal Sex Female 3:13 AM RESEARCH ASSOCIATE MOLECULAR BIOLOGY Gender Identity Female 02/08/2022 7:17 AM CDT [...] Description 04/06/2024 7:30 AM CDT Virtual Visit [facility] [address] [place] [address] [address] [place] [address] Lexi Farnsworth, BUTTONHOLE TACKER [address] [place], [place] [address] 04/06/2024 8:00 AM CDT Virtual Visit [facility] [address] [address] [place] [phone] Mattie Tellez, MUSIC DEPARTMENT CHAIR CIGAR MAKING MACHINE SUPERVISOR [address] [place], [place] [phone] Procedures Procedure Name Priority Date/Time Associated Diagnosis [...] and gender (Octavio et al., [place], DOI: 10.1056/[id number]) Blood BLOOD SPECIMEN / Unknown Venipuncture / Unknown 02/16/2022 10:35 AM CDT 02/16/2022 10:35 AM CDT us Shannan Malcolm CNP LAB - BLOOD ORDERABLES Fi nal Result [facility] [address] Lab (no room number, 1st floor of clinic) [place] [address] [phone] * HIV Antigen Antibody Combo (10/14/2017 10:05 AM CDT) HIV Antigen Antibody Combo Nonreactive NR^Nonrea ctive 10/15/2017 11:[address] [facility] Comment:HIV-1 p24 Ag & HIV-1 /HIV-2 Ab Not Detected Blood specimen (specimen) 10/14/2017 10:05 AM CDT 10/14/2017 10:06 AM CDT us Noreen Buitrago PA-C LAB - BLOOD ORDERABLES Fi nal Result [facility] [address] [place] [address] * Albumin Random Urine Quantitative with Creat Ratio (10/14/2017 10:04 AM CDT) Creatinine Urine 34 mg/dL 10/14/2017 6:08 PM CDT [facility] Albumin Urine mg/L <5 mg/L 10/14/2017 6:13 PM CDT [facility] Albumin Urine mg/g Cr Unable to calculate due to low value 0 - 25 mg/g Cr 10/14/2017 6:13 PM CDT [facility] Urine specimen (specimen) 10/14/2017 10:04 AM CDT 10/14/2017 10:05 AM CDT us Noreen Buitrago PA-C LAB - URINE ORDERABLES Fi nal Result [facility] [address] [place] [address], [facility] [phone] * HPV High Risk Types DNA Cervical (10/14/2017 9:54 AM CDT) HPV Source [facility] 10/14/2017 9:41 AM CDT [facility] HPV 16 DNA Negative NEG^Nega tive 10/18/2017 10:[address] [facility] HPV 18 DNA Negative NEG^Nega tive 10/18/2017 10:[address] [facility] Other HR HPV Negative NEG^Nega tive 10/18/2017 10:[address] [facility] Final Diagnosis This patient's sample is negative for HPV DNA. 10/18/2017 10:[address] [facility] Comment: This test was developed and its performance characteristics determined by the [facility], Molecular Diagnostics Laboratory. It has not been [...] Description Cervical Cells 10/17/2017 9:[address] [facility] Comment:[id number] Cervical Cells 10/14/2017 9: 54 AM CDT 10/14/2017 10:07 AM CDT us Noreen Buitrago PA-C LAB - BLOOD ORDERABLES Fi nal Result [facility] [address] [place] [address] [address] * Pap imaged thin layer screen with HPV - recommended age 30 - 65 years (select HPV order below) (10/14/2017 9:40 AM CDT) PAP SAL oDherty Report Patient Name: SKYLAR AKERS MR#: [id number] Specimen #: [id number] Collected: 10/14/2017 Received: 10/14/2017 Reported: 10/16/2017 10:22 [...] RONAK Garcia (ASCP) Processed and screened at [facility], [facility] CLINICAL HISTORY: Currently not having periods, Intra-Uterine Device, Previous normal pap Date of Last Pap: 10/09/2016, Papanicolaou Test Limitations: ??Cervical cytology is a screening test with limited sensitivity; regular screening is critical for cancer prevention; Pap tests are primarily effective for the diagnosis/preventi on of squamous cell carcinoma, not adenocarcinomas or other cancers. TESTING LAB LOCATION: [facility] [address] [place], [place] ??[address] COLLECTION SITE: Client: ??[facility] Location: RVFP (R) COPATH Cytologic material (specimen) 10/14/2017 9:40 AM CDT 10/14/2017 3:39 PM CDT Noreen Buitrago PA-C LAB - OPTIME CLINICAL SPE CIMEN Final Result COPATH from Last 3 Months or Most Recently Relevant to Health Maintenance Insurance [facility] [employer] Advance Directives For more information, please contact: [phone] * Full Code (Latest Code Status on File) Date Activated Date Inactivated Comments 11/14/2021 3:00 AM 11/17/2021 3:53 PM All basic and advanced life-sustaining interventions are performed as appropriate Question Answer Comments Code status determined by: Discussion with patie nt/ legal decision maker Care Teams Manager Education Relationship Specialty Start Date End Date Shannan Malcolm CNP [address] [place] [address] PCP - General Nurse Practitioner - Family 07/09/22 Shannan Malcolm CNP [address] [place] [address] Assigned PCP 04/07/22 Mattie Tellez APRN CNP [address] [place] [address] Assigned Behavioral Health Provider 09/22/22
--- OUTSIDE RECORDS SUMMARY | 2024-04-05 07:30 | XMS_ITS | Encounter Summary ---
Author Organization [facility] Address [facility] [place] [address] Care Team Providers Care [facility] Clergy Name Role Phone Shannan Malcolm CNP Unavailable [phone] Shannan Malcolm CNP Primary Care Provider [phone] Mattie Tellez APRN INDUSTRIAL X RAY OPERATOR Unavailable [phone] Reason for Visit * Reason Comments RECHECK Encounter Details Date Type Department Care Team (Latest Contact Info) Description 01/27/2024 8:00 AM CDT Virtual Visit [facility] Mental Health & Addiction [facility] [address] [place] [address] [address] [place] [address] Mattie Tellez, [place]AR[place] INDUSTRIAL X RAY OPERATOR [address] [place], [place] [address] Generalized anxiety disorder with panic attacks (Primary [...] on file Legal Sex Female 3:13 AM LIVE OUT NANNY Gender Identity Female 02/08/2022 7:17 AM CDT [...] Instructions * Patient Instructions* Mattie Tellez APRN INDUSTRIAL X RAY OPERATOR - 01/27/2024 8:00 AM CDT For crisis resources, please see the information at the end of this document Thank you for coming to the [facility] MENTAL HEALTH [facility]. TREATMENT PLAN: Medications: DISCONTINUE mirtazapine. START [...] 4 weeks or sooner as needed. Call [facility] [phone] to schedule. Follow up with primary care provider as planned or for acute medical concerns. Call the psychiatric nurse line with medication questions or concerns at [phone]. MyChart may be used to communicate with [...] patientis advised that I will not prescribe intermodal truck driver/high dose benzodiazepine due to risk in addition [...] cardiovascular risks, increased blood pressure. Financial Assistance [phone] [employer] Billing [phone] Central Billing Office, ealth: [phone] [facility] [phone] Medical Records [phone] [facility] Patient Bill of Rights [email or web address] MENTAL HEALTH CRISIS RESOURCES: For a emergency help, please call 911 or go to the nearest Emergency Department. Emergency Walk-In Options: Oz Unit @ [facility] ([place]): [phone] - Specialized mental health emergency area designed to be [facility] ([place]): [phone] [facility] [place] Acute Psychiatry Services ([place]): [phone] [facility]): [phone] [facility] Crisis Information: Karen: [phone] Endy: [phone] Richy HEAD) - Adult: [phone] Child: [phone] Jeff - Adult: [phone] Child: [phone] Miller: [phone] List of all [facility] resources: [email or web address]://hi.[facility]/dhs/haodkj-ig-fivlu/adults/health-care/mental-health/resources/cr therese-contacts.jsp National Crisis Information: National Suicide & Crisis Lifeline: Call 998 For online chat options, visit https://suicidepreventionCallsFreeCallsline.org/chat/ Poison Control Center: Poison Control Center: Trans Lifeline: - Hotline for transgender people of all ages The Juan Project: - Hotline for LGBT youth For Non-Emergency Support: Fast Tracker: Mental Health & Substance Use Disorder Resources - https://www.fasttrackermn.org/ Again thank you for choosing [facility] M[facility]AL [facility] and please let us know how [...] call your pharmacy. You can also call [facility]'s Behavioral Access at , Saturday to [...] your health care provider. Copyright ?? [address] [facility]. All rights reserved. Pickup Services [id number] - 05/31. documented in this encounter Progress [...] Shannan Malcolm CNP Therapist: none currently The [facility] psychiatry providers act as a specialty service for Primary Care Providers in the [facility] who seek to optimize medications for unstable patients. Once medications have been optimized, [facility] providers discharge the patient back to the referring Primary Care Provider for ongoing medication management. This type of system allows [facility] to serve a high volume of patients. Patient Identification: Patient is a 38 year old, in a relationship or White or female who presents for return visit with in. Patient prefers to be called: Melisa. 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 RECORDS AVAILABLE FOR REVIEW: EHR records through [employer] . Interim History: I last saw Skylar [...] appetite and weight gain from clonidine The [place] Prescription Monitoring Program has been reviewed and [...] Patient is followed by Azra Shine NP, DIGITAL EDITOR for ongoing prescription of a controlled medicine. [...] or call after hours crisis line at [phone] or [phone]. [place] Crisis Text Line. Text [place] to 193757 or Suicide LifeLine Chat: suicidepreventionCallsFreeCallsline.org/chat Schedule an appointment with me in 4 weeks or sooner as needed. Call [facility] [phone] to schedule. Follow up with primary care provider as planned or for acute medical concerns. Call the psychiatric nurse line with medication questions or concerns at [phone]. [place] Grouphart may be used to communicate with your provider, but this is not intended to be used for emergencies. Patient Education: Medication side effects and alternatives reviewed. Health promotion activities recommended and reviewed today. All questions addressed. Education and counseling completed regarding risks and benefitsof medications and psychotherapy options. Consent provided by patient/guardian Call the psychiatric nurse line with medication questions or concerns at [phone]. MyChart may be used to communicate with your provider, but this is not intended to be used for emergencies. SEROTONIN SYNDROME: Discussed risks of Serotonin syndrome (ie, serotonin toxicity) which is a potentially life-threatening condition associated with increased serotonergic activity in the central nervous system (MANAGER MATH). It is seen with therapeutic medication use, [...] keep place and cannot replace lost scripts. blogfoster.gov is information for patients. It is run [...] is advised that I will not prescribe mcfp/high dose benzodiazepine due to risk in addition [...] pressure. Community Resources: National Suicide Prevention Lifeline: 960.366.7454 (TTY: 955.229.6172). Call anytime for help. (www.suicidepreventionlifeline.org) National [place] on Mental Illness (www.jason.org): 678.141.2080 or 026-782-3901. Mental Health Association (www.mentalhealth.org): 927.781.3351 or 026-787-0825. [place] Crisis Text Line: Text [place] to 353429 Suicide LifeLine Chat: suicidepreSenior Momentsline.org/chat Administrative Billing: Level of Medical Decision Making: - At least 1 chronic problem that is not stable - Engaged in prescription drug management during visit (discussed any medication benefits, side effects, alternatives, etc.) Patient Status: [facility]PS MD/DO/DIGITAL EDITOR/PA providers offer care a specialty service for Primary Care Providers in the [facility] that seek to optimize psychotropic medications for unstable patients. Once medications havebeen optimized, our providers discharge the patient back to the referring Primary Care Provider forongoing medication management. This type of system allows our providers to serve a high volume of patients. Patient will continue to be seen for ongoing consultation and stabilization. Signed: Mattie Tellez, MSN, PACKAGING MACHINE OPERATOR, PMHNP- Collaborative Care Psychiatry Service ([facility]) [facility] Chart documentation done in part with Matternet Voice Recognition software. Although reviewed after completion, [...] 01/27/2024 8:00 AM CDT Current patient location: [address] [place] [address] Is the patient currently in the state of [place]? YES Visit mode:VIDEO If the visit is dropped, the patient can be reconnected by: VIDEO VISIT: Text to cell phone: Telephone Information: Will anyone else be joining the visit? NO (If patient encounters technical issues they should call [phone] :[id number]) How would you like to obtain your [...] [facility] Mental Health & Addiction [facility] [address] [place] [address] Lexi Farnsworth, [facility] [address] [place] [address] 04/06/2024 8:00 AM CDT Virtual Visit [facility] Mental Health & Addiction [facility] [address] [place] [phone] Mattie Tellez APRN INDUSTRIAL X RAY OPERATOR [address] [place] [address] documented as of this encounter Visit Diagnoses [...] documented as of this encounter Care Teams [facility] Relationship Specialty Start Date End Date Shannan Malcolm CNP [address] [place] [address] PCP - General Nurse Practitioner - Family 07/09/22 Shannan Malcolm CNP [address] [place] [address] Assigned PCP 04/07/22 Mattie Tellez APRN INDUSTRIAL X RAY OPERATOR [address] [place] [address] Assigned Behavioral Health Provider 09/22/22 documented as of this encounter
--- OUTSIDE RECORDS SUMMARY | 2024-04-05 07:30 | XMS_ITS | Encounter Summary ---
Author Organization [facility] Address [address] [place] [address] Care Team Providers Care Scourer Name Role Phone Shannan Malcolm CNP Unavailable [phone] Shannan Malcolm CNP Primary Care Provider [phone] Mattie Tellez APRN CALCULATOR OPERATOR Unavailable [phone] Encounter Details Date Type Department Care Team ([facility] st Contact Info) Description 03/02/[address] [address] Shannan Malcolm, CALCULATOR OPERATOR [address] [place] [address] [id number] Social History Tobacco Use Types Packs/Day Years [...] on file Legal Sex Female 3:13 AM EXHIBITOR SALES Gender Identity Female 02/08/2022 7:17 AM CDT [...] by a primary care provider at an [facility] or [facility] within the past two [...] patient is taking: NONE. Is patient taking [place]'s Wort? No Is patient taking [place]'s Wort or any meds from List 1? [...] will be scheduled or transferred to a transistor tester at the end of this call. Maria Antonia Vázquez RN documented in this encounter Plan of Treatment Upcoming Encounters Date Type Department Care Team (Late st Contact Info) Description 04/06/2024 7:30 AM CDT Virtual Visit [facility] Mental Health & Addiction [facility] [address] [place] [address] 400 [place] [address] Lexi Farnsworth, BED TEACHER [address] [place], [place] [address] 04/06/2024 8:00 AM CDT Virtual Visit [facility] & Addiction [facility] [address] [place] [address] 400 [place] [phone] Mattie Tellez APRN CALCULATOR OPERATOR [address] [place], [place] 59[address] documented as of this encounter Visit Diagnoses Diagnosis Generalized anxiety disorder with panic attacks documented in this encounter Additional Health Concerns Assessment Noted Time PHQ-9 Depression Total Score: 9 03/02/20 24 8:53 AM CDT documented as of this encounter Care Teams Scourer Relationship Specialty Start Date End Date Shannan Malcolm CNP [address] [place] [address] PCP - General Nurse Practitioner - Family 07/09/22 Shannan Malcolm CNP [address] [place] [address] [id number] Assigned PCP 04/07/22 Mattie Tellez APRN CNP [address] [place], [place] [address]8845 Assigned Behavioral Health Provider 09/22/22 documented as of this encounter
--- OUTSIDE RECORDS SUMMARY | 2024-04-05 07:30 | XMS_ITS | Encounter Summary ---
Author Organization [facility] Address [address] [place] [address]. [place] [address] Care Team Providers Care Surgical Supplies Sterilizer Name Role Phone Shannan Malcolm BARREL RIFLER Unavailable [phone] Shannan Malcolm CNP Primary Care Provider [phone] Mattie Tellez APRN BARREL RIFLER Unavailable [phone] Encounter Details Date Type Department Care Team ([facility] Contact Info) Description 02/26/2024 [facility] Mental Health & Addiction [place] [id number] [address] [address] Angie Hernández Social History Tobacco [...] on file Legal Sex Female 3:13 AM CELL STRIPPER FINAL Gender Identity Female 02/08/2022 7:17 AM CDT Sexual Orientation Choose not to disclose 2021 7:17 AM CDT documented as of this encounter Plan of Treatment Upcoming Encounters Date Type Department Care Team (Late st Contact Info) Description 04/06/2024 7:30 AM CDT Virtual Visit [facility] Mental Health & Addiction [facility] [address] [place] [address] Lexi Farnsworth, [facility] [address] [place] [address] 04/06/2024 8:00 AM CDT Virtual Visit [facility] Mental Health & Addiction [facility] [address] [place] [phone] Mattie Tellez APRN BARREL RIFLER [address] [place], [place] [address] documented as of this encounter Visit Diagnoses Not on filedocumented in this encounter Additional Health Concerns Assessment Noted Time PHQ-9 Depression Total Score: 6 01/01/20 24 10:48 AM CDT documented as of this encounter Care Teams Surgical Supplies Sterilizer Relationship Specialty Start Date End Date Shannan Malcolm CNP [address] [place] [address] PCP - General Nurse Practitioner - Family 07/09/22 Shannan Malcolm CNP [address] [place] [address] Assigned PCP 04/07/22 Mattie Tellez APRN BARREL RIFLER [address] [place] [address] Assigned Behavioral Health Provider 09/22/22 documented as of this encounter
--- OUTSIDE RECORDS SUMMARY | 2024-04-05 07:30 | XMS_ITS | Encounter Summary ---
Author Organization [facility] Address [address] [place] [address] Care Team Providers Care Head Of Integrated Media Name Role Phone Shannan Malcolm CNP Unavailable [phone] Shannan Malcolm CNP Primary Care Provider [phone] Mattie Tellez APRN HEDIS SPECIALIST Unavailable Reason for Visit * Reason Onset Date Comments Refill Request 01/23/2024 lorazepam (ATIVA N) 0.5 MG tablet Encounter Details Date Type Department Care Team (Late st Contact Info) Description 01/23/2024 MyC Refill [facility] Mental Health & Addiction [facility] [address] [address] [place] [address] Mattie Tellez, [place] HEDIS SPECIALIST [address] [place] [address] Refill Request (lorazepam (ATIVAN) 0.5 [...] on file Legal Sex Female 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 She said she picked it up on 01/10/2024, but the LOFTSMAN/WOMAN says sold on 01/13/2024. The patient said [...] No []Medication refilled per ???Medication Refill in Care Management Associate?? policy. [x]Medication unable to be refilled by [...] to review. Any Controlled Substance(s)? Yes [place] LOFTSMAN/WOMAN [place]? Yes Lorazepam 0.5 mg tablet was last sold on 01/13/2024 for quantity of 30. Other [place] substance on [place] LOFTSMAN/WOMAN?: Yes If yes, are any new medications? [...] for #28. Contact provider via phone or DataParentingt in 2 weeks for diazepam refill (or [...] or call after hours crisis line at [phone] or [phone]. [place] Crisis Text Line. Text [place] to 405667 or Suicide LifeLine Chat: suicidepreventionlifeline.org/chat Schedule an appointment with me in 4 weeks or sooner as needed. Call [facility] [phone] to schedule. Follow up with primary care provider as planned or for acute medical concerns. Call the psychiatric nurse line with medication questions or concerns at [phone]. [employer] may be used to communicate with your provider, but this is not intended to be used for emergencies. Any medication(s) require lab monitoring? No documented in this encounter Plan of Treatment Upcoming Encounters Date Type Department Care Team (Late st Contact Info) Description 04/06/2024 7:30 AM CDT Virtual Visit [facility] Mental Health & Addiction [facility] [address] [place] [address] Lexi Farnsworth, [facility] [address] [place] [address] 04/06/2024 8:00 AM CDT Virtual Visit [facility] Health & Addiction [facility] [address] [place] [phone] Mattie Tellez APRN HEDIS SPECIALIST [address] [place], [place] [address] documented as of this encounter Visit Diagnoses Diagnosis CATHY (generalized anxiety disorder) Generalized anxiety disorder documented in this encounter Additional Health Concerns Assessment Noted Time PHQ-9 Depression Total Score: 6 01/01/20 24 10:48 AM CDT documented as of this encounter Care Teams Head Of Integrated Media Relationship Specialty Start Date End Date Shannan Malcolm CNP [address] [place] [address] PCP - General Nurse Practitioner - Family 07/09/22 Shannan Malcolm CNP [address] [place] [address] Assigned PCP 04/07/22 Mattie Tellez APRN HEDIS SPECIALIST [address] [place] [address] Assigned Behavioral Health Provider 09/22/22 documented as of this encounter
--- OUTSIDE RECORDS SUMMARY | 2024-04-05 07:30 | XMS_ITS | Encounter Summary ---
Author Organization [facility] Address [address] [place] [address] Care Team Providers Care Water Treatment Plant Mechanic Name Role Phone Shannan Malcolm CNP Unavailable [phone] Shannan Malcolm CNP Primary Care Provider [phone] Mattie Tellez APRN APPOINTMENT SETTER Unavailable [phone] Reason for Visit * Reason Onset Date Comments Refill Request 02/24/2024 Prozac 40 Encounter Details Date Type Department Care Team (Late st Contact Info) Description 02/24/[address] [address] Shannan Malcolm, APPOINTMENT SETTER [address] [place] [address] Refill Request (Prozac 40) 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 OPERATING 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 TECHNICIAN Gender Identity Female 02/08/2022 7:17 AM CDT Sexual Orientation Choose not to disclose 2021 7:17 AM CDT documented as of this encounter Plan of Treatment Upcoming Encounters Date Type Department Care Team (Late st Contact Info) Description 04/06/2024 7:30 AM CDT Virtual Visit [facility] Mental Health & Addiction [facility] [address] [place] [address] Lexi Farnsworth, [facility] [address] [place] [address] 04/06/2024 8:00 AM CDT Virtual Visit [facility] Health & Addiction [facility] [address] [place] [phone] Mattie Tellez APRN APPOINTMENT SETTER [address] [place], [place] [address] documented as of this encounter Visit Diagnoses Diagnosis Generalized anxiety disorder with panic attacks MDD (major depressive disorder), recurrent episode, moderate (H) Major depressive disorder, recurrent episode, moderate documented in this encounter Additional Health Concerns Assessment Noted Time PHQ-9 Depression Total Score: 6 01/01/20 24 10:48 AM CDT documented as of this encounter Care Teams Water Treatment Plant Mechanic Relationship Specialty Start Date End Date Shannan Malcolm CNP [address] [place] [address] PCP - General Nurse Practitioner - Family 07/09/22 Shannan Malcolm CNP [address] [place] [address] Assigned PCP 04/07/22 Mattie Tellez APRN APPOINTMENT SETTER [address] [place] [address] Assigned Behavioral Health Provider 09/22/22 documented as of this encounter
--- OUTSIDE RECORDS SUMMARY | 2024-04-05 07:30 | XMS_ITS | Encounter Summary ---
Author Organization [facility] Address [address] [place] [address] Care Team Providers Care Intermodal Owner Operator Truck Driver Name Role Phone Shannan Malcolm CNP Unavailable [phone] Shannan Malcolm CNP Primary Care Provider [phone] Mattie Tellez APRN INSURANCE LAW SPECIALIST Unavailable [phone] Reason for Visit * Reason Onset Date Comments Refill Request 03/09/2024 Focalin 5 mg Encounter Details Date Type Department Care Team (Late st Contact Info) Description 03/09/2024 MyC Refill [facility] Mental Health & Addiction [facility] [address] [place] [address] [address] [place] [address] Mattie Tellez APRN INSURANCE LAW SPECIALIST [address] [place] [address] Refill Request (Focalin 5 mg) [...] on file Legal Sex Female 3: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 policy. [x]Medication unable to be refilled by [...] refill? Yes Any Controlled Substance(s)? Yes [place] BOWLING BALL WEIGHER AND PACKER checked? Yes was last sold on 02/07/24 for quantity of 30. Other [place] BOWLING BALL WEIGHER AND PACKER?: Yes If yes, are any new medications? [...] Follow-up with this provider + Behavioral Health Modular Home Crew Member in 1 month. Additionally sending referral for DBT. Patient agreeable to plan. Any medication(s) require lab monitoring? No documented in this encounter Plan of Treatment Upcoming Encounters Date Type Department Care Team (Late st Contact Info) Description 04/06/2024 7:30 AM CDT Virtual Visit [facility] Mental Health & Addiction [facility] [address] [place] [address] 400 [place] [address] Lexi Farnsworth, [facility] [address] [facility] [address] [place], [place] [address] 04/06/2024 8:00 AM CDT Virtual Visit [facility] & [facility] [address] [place] [phone] Mattie Tellez APRN [facility] [address] [place], [place] [address] documented as of this encounter Visit Diagnoses Diagnosis Attention deficit hyperactivity disorder (ADHD), predominantly inattentive type documented in this encounter Additional Health Concerns Assessment Noted Time PHQ-9 Depression Total Score: 9 03/02/20 24 8:53 AM CDT documented as of this encounter Care Teams Intermodal Owner Operator Truck Driver Relationship Specialty Start Date End Date Shannan Malcolm CNP [address] [place] [address] PCP - General Nurse Practitioner - Family 07/09/22 Shannan Malcolm CNP [address] [place] [address] Assigned PCP 04/07/22 Mattie Tellez APRN INSURANCE LAW SPECIALIST [address] [place] [address] Assigned Behavioral Health Provider 09/22/22 documented as of this encounter
--- OUTSIDE RECORDS SUMMARY | 2024-04-05 07:30 | XMS_ITS | Encounter Summary ---
Author Organization [facility] Address [address] [place] [address] Care Team Providers Care Railroad Wheels And Axle Inspector Name Role Phone Shannan Malcolm CNP Unavailable [phone] Shannan Malcolm CNP Primary Care Provider [phone] Mattie Tellez APRN CAMP COUNSELOR Unavailable [phone] Reason for Visit * Reason Onset Date Comments Medication Request 03/14/2024 Change anti-a nxiety medication Encounter Details Date Type Department Care Team (Late st Contact Info) Description 03/14/2024 [facility] Medical Advice [facility] Mental Health & Addiction [facility] [address] [place] [address] [address] [place] [address] Mattie Tellez APRN CAMP COUNSELOR [address] [place] [address] Medication Request (Change anti-anxiety me... [...] on file Legal Sex Female 3:13 AM OTR OWNER OPERATOR Gender Identity Female 02/08/2022 7:17 AM CDT Sexual Orientation Choose not to disclose 2021 7:17 AM CDT documented as of this encounter Miscellaneous Notes * Telephone Encounter - Lauren Esparza, RN - 03/16/2024 12:08 PM CDT Images from the original note were not included. Per [place] DANCE INSTRUCTOR, LORazepam (ATIVAN) 0.5 MG tablet was last purchased on 02/25/24. Lauren Esparza RN on 03/16/2024 at 12:11 PM documented in this encounter Plan of Treatment Upcoming Encounters Date Type Department Care Team (Late st Contact Info) Description 04/06/2024 7:30 AM CDT Virtual Visit [facility] Mental Health & Addiction [facility] [address] [place] [address] 400 [place] [address] Lexi Farnsworth, MOBILE EQUIPMENT OPERATOR [address] [place], [place] [address] 04/06/2024 8:00 AM CDT Virtual Visit [facility] Health & Addiction [facility] [address] [address] [place] [address] Mattie Tellez APRN CAMP COUNSELOR [address] [place], [place] [address] documented as of this encounter Visit Diagnoses Not on filedocumented in this encounter Additional Health Concerns Assessment Noted Time PHQ-9 Depression Total Score: 9 03/02/20 8:53 AM CDT documented as of this encounter Care Teams Railroad Wheels And Axle Inspector Relationship Specialty Start Date End Date Shannan Malcolm CNP [address] [place] [address] PCP - General Nurse Practitioner - Family 07/09/22 Shannan Malcolm CNP [address] [place], [place] [address] Assigned PCP 04/07/22 Mattie Tellez APRN CNP [address] [place] [address] Assigned Behavioral Health Provider 09/22/22 documented as of this encounter
--- OUTSIDE RECORDS SUMMARY | 2024-04-05 07:30 | XMS_ITS | Encounter Summary ---
Author Organization [facility] Address [facility] [place] [address] Care Team Providers Care Universal Grinder Set Up Operator Name Role Phone Shannan Malcolm CNP Unavailable [phone] Shannan Malcolm CNP Primary Care Provider [phone] Mattie Tellez APRN, CNP Unavailable [phone] Reason for Referral * Mental Health Outpatient (Routine: Next available opening) - Pending Review Specialty Diagnoses / Procedures Referred By Contac t Referred To Contact Diagnoses Generalized anxiety disorder with panic attacks PTSD (post-traumatic stress disorder) MDD (major depressive disorder), recurrent episode, moderate (H) Attention deficit hyperactivity disorder (ADHD), predominantly inattentive type Alcohol use disorder in remission Mattie Tellez, ROSEMARIE CASE HARDENER [address] [place] [address] Phone: tel: fax: Referral ID Status Reason Start Date Expiration Date V isits Requested Visits Authorized [id number] Pending Review 02/24/2024 02/23/2025 1 1 Question Answer Services: Intensive Programmatic Care Program: DBT Scheduling Instructions: [facility] will call you to coordinate your care as prescribed by your provider. If you don't hear from a insurance healthcare representative within 2 business days, please call [phone]. Only select yes if the patient has [...] plan with any benefit or coverage questions. [facility] will call you to coordinate your care as prescribed by your provider. If you don't hear from a insurance healthcare representative within 2 business days, please call [phone]. 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 TREATMENT [...] Consults / Referrals: Referral placed for DBT. [facility] will call you to coordinate your care as prescribed by your provider. If you don't hear from a insurance healthcare representative within 2 business days, please call [phone]. Follow-up: Schedule an appointment with me and Behavioral Health Strip Mine Supervisor in 4 weeks or sooner as needed. Call [facility] at [phone] to schedule. Follow up with primary care provider as planned or for acute medical concerns. Call the psychiatric nurse line with medication questions or concerns at [phone]. Azimahart may be used to communicate with your [...] patientis advised that I will not prescribe snf/high dose benzodiazepine due to risk in addition [...] cardiovascular risks, increased blood pressure. Financial Assistance [phone] [facility] [phone] Central Billing Office, [facility]: [phone] [facility] [phone] Medical Records [phone] [facility] Patient Bill of Rights [email or web address] MENTAL HEALTH CRISIS RESOURCES: For a emergency help, please call 911 or go to the nearest Emergency Department. Emergency Walk-In Options: EmPATH Unit @ [facility] ([place]): [phone] - Specialized mental health emergency area designed to be calming [facility] ([place]): [phone] [facility] Acute Psychiatry Services ([place]): [phone] [facility]): [phone] County Crisis Information: [place]: [phone] [place]: [phone] Richy ([place]) - Adult: [phone] Child: [phone] Jeff - Adult: [phone] Child: [phone] [place]: [phone] List of all [facility] resources: https://wy.gov/dhs/abkylo-zh-dzpui/adults/health-care/mental-health/resources/cr therese-contacts.jsp National Crisis Information: National Suicide & Crisis Lifeline: Call 988 For online chat options, visit https://suicidepreventionlifeline.org/chat/ Poison Control Center: Poison Control Center: Trans Lifeline: - Hotline for transgender people of all ages The Juan Project: - Hotline for LGBT youth For Non-Emergency Support: Fast Tracker: Mental Health & Substance Use Disorder Resources - https://www.AltheaDxckShopnationn.org/ Again thank you for choosing [facility] and please let us know how [...] someone else's life is in danger. Call 678 anytime to reach the national Suicide and Crisis hotline. Medicine refills To refill your medicine, call your pharmacy. You can also call [facility]'s Behavioral Access at , Saturday [...] your health care provider. Copyright ?? 2021 [facility]. All rights reserved. MYFX [id number] - 05/31. documented in this encounter Progress [...] Shannan Malcolm CNP Therapist: none currently The [facility] psychiatry providers act as a specialty service for Primary Care Providers in the [facility] who seek to optimize medications for unstable patients. Once medications have been optimized, [facility] providers discharge the patient back to the referring Primary Care Provider for ongoing medication management. This type of system allows [facility] to serve a high volume of patients. Patient Identification: Patient is a 38 year old, in a relationship or White or female who presents for return visit with me. Patient prefers to be called: Melisa. 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 RECORDS AVAILABLE FOR REVIEW: EHR records through [employer] . Interim History: I last saw Skylar [...] clonidine: drowsiness, slowed, monitoring for dizziness The [place] Prescription Monitoring Program has been reviewed and there are no concerns about diversionary activity for controlled substances at this time. 02/17/2024 02/17/2024 3 Dexmethylphenidate Er 10 Mg Cp 30.00 30 Cl Hil [id number] [place] ([id number]) 0/0 Medicaid [place] 02/07/2024 01/27/2024 3 Dexmethylphenidate 5 Mg Tab 30.00 30 Cl Hil [id number] [place] ([id number]) [place]/0 [place] 01/27/2024 01/27/2024 3 Lorazepam 0.5 Mg Tablet 60.00 30 Cl Hil [id number] [place] ([id number]) 0/0 1.00 LME Medicaid [place] Psychiatric ROS: [...] Patient is followed by Azra Shine NP, HEALTHCARE ADMINISTRATOR for ongoing prescription of a controlled medicine. [...] Follow-up with this provider + Behavioral Health Strip Mine Supervisor in 1 month. Additionally sending referral for [...] primary care provider. Referral placed for DBT. [facility] will call you to coordinate your care as prescribed by your provider. If you don't hear from a insurance healthcare representative within 2 business days, please call [phone]. Safety plan reviewed. To the Emergency Department as needed or call after hours crisis line at [phone] or [phone]. [place] Crisis Text Line. Text [place] to 834485 or Suicide LifeLine Chat: suicidepreventionTicketmasterline.org/chat Schedule an appointment with wi and Behavioral Health Strip Mine Supervisor in 4 weeks or sooner as needed. Call [facility] at [phone] to schedule. Follow up with primary care provider as planned or for acute medical concerns. Call the psychiatric nurse line with medication questions or concerns at [phone]. Azimahart may be used to communicate with your provider, but this is not intended to be used for emergencies. Patient Education: Medication side effects and alternatives reviewed. Health promotion activities recommended and reviewed today. All questions addressed. Education and counseling completed regarding risks and benefitsof medications and psychotherapy options. Consent provided by patient/guardian Call the psychiatric nurse line with medication questions or concerns at [phone]. Azimahart may be used to communicate with your [...] keep place and cannot replace lost scripts. MedlineNEMO Equipment.gov is information for patients. It is run [...] is advised that I will not prescribe snf/high dose benzodiazepine due to risk in addition [...] pressure. Community Resources: National Suicide Prevention Lifeline: 479.850.4269 (TTY: 510.345.5382). Call anytime for help. (www.suicidepreventionlifeline.org) National [place] on Mental Illness (www.jason.org): 621.186.3981 or 757-264-8572. Mental Health Association (www.mentalhealth.org): 701.446.9919 or 284-560-6208. [place] Crisis Text Line: Text [place] to 376435 Suicide LifeLine Chat: suicidepreThe Key Revolutionline.org/chat Administrative Billing: Level of Medical Decision Making: - At least 1 chronic problem that is not stable - Engaged in prescription drug management during visit (discussed any medication benefits, side effects, alternatives, etc.) Patient Status: CCPS MD/DO/HEALTHCARE ADMINISTRATOR/PA providers offer care a specialty service for Primary Care Providers in the [facility] that seek to optimize psychotropic medications for unstable patients. Once medications havebeen optimized, our providers discharge the patient back to the referring Primary Care Provider forongoing medication management. This type of system allows our providers to serve a high volume of patients. Patient will continue to be seen for ongoing consultation and stabilization. Signed: Mattie Tellez, MSN, TYING MACHINE OPERATOR, PMHNP- Collaborative Care Psychiatry Service (CCPS) [facility] Chart documentation done in part with Carnet [employer] Mode Voice Recognition software. Although reviewed after completion, some word and grammatical errors may remain. documented in this encounter Nursing Notes * ALBANRICARDOGLORIA - 02/24/2024 10:30 AM CDT Is the patient currently in the state of [place]? YES Current patient location: [address] [place] [address] Visit mode:VIDEO If the visit is dropped, the patient can be reconnected by: VIDEO VISIT: Text to cell phone: Telephone Information: Will anyone else be joining the visit? No (If patient encounters technical issues they should call [phone]) How would you like to obtain your AVS? MyChart Are changes needed to the allergy or medication list? No Are refills needed on medications prescribed by this physician? YES Rooming Documentation: Questionnaire(s) completed. Reason for visit: RECHECK JRAROD Steward documented in this encounter Plan of Treatment Upcoming Encounters Date Type Department Care Team (Late st Contact Info) Description 04/06/2024 7:30 AM CDT Virtual Visit [facility] Mental Health & Addiction [facility] [address] [place] [address] [address] [place] [address] Lexi Farnsworth, [facility] [address] [facility] [address] [place] [address] 04/06/2024 8:00 AM CDT Virtual Visit [facility] Health & Addiction [facility] [address] [address] [place] [address] Mattie Tellez APRN CASE HARDENER [address] [place], [place] [address] Scheduled Referrals Name Type Priority Associated Diagnoses Orde r Schedule Adult Mental Health Commercial Credit Head Referral Referral Routine: Next available opening Generalized [...] documented as of this encounter Care Teams Universal Grinder Set Up Operator Relationship Specialty Start Date End Date Shannan Malcolm CNP [address] [place] [address] PCP - General Nurse Practitioner - Family 07/09/22 Shannan Malcolm CNP [address] [place] [address] [id number] Assigned PCP 04/07/22 Mattie Tellez APRN CNP [address] [place] [address] Assigned Behavioral Health Provider 09/22/22 documented as of this encounter
--- OUTSIDE RECORDS SUMMARY | 2024-04-05 07:30 | XMS_ITS | Encounter Summary ---
Author Organization [place] Address [address] [place] [address] Care Team Providers Care Tool Repair Technician Name Role Phone Shannan Malcolm ENDOCRINOLOGY SPECIALIST Unavailable [phone] Shannan Malcolm CNP Primary Care Provider Mattie Tellez APRN ENDOCRINOLOGY SPECIALIST Unavailable [phone] Reason for Visit * Reason Comments Covid Concern Encounter Details Date Type Department Care Team (Late st Contact Info) Description 03/02/2024 1:00 PM CDT Virtual Visit [address] [address] Shannan Malcolm, ENDOCRINOLOGY SPECIALIST [address] [place] [address] [id number] Infection due to 2019 novel coronavirus (Primary [...] on file Legal 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 How would you like to obtain your AVS? MyChart If the video visit is dropped, the invitation should be resent by: Text to cell phone: [phone] Will anyone else be joining your video [...] by a primary care provider at an [facility] or [facility] Primary Care [...] [facility] Mental Health & Addiction [facility] [address] [place] [address] Lexi Farnsworth, [facility] [address] [place] [address] 04/06/2024 8:00 AM CDT Virtual Visit [facility] Mental Health & Addiction [facility] [address] [place] [phone] Mattie Tellez APRN ENDOCRINOLOGY SPECIALIST [address] [place], [place] 57[address] documented as of this encounter Visit Diagnoses Diagnosis Infection due to 2019 novel coronavirus- Primary Mild intermittent asthma without complication Unspecified asthma documented in this encounter Additional Health Concerns Assessment Noted Time PHQ-9 Depression Total Score: 9 03/02/20 24 8:53 AM CDT documented as of this encounter Care Teams Tool Repair Technician Relationship Specialty Start Date End Date Shannan Malcolm CNP [address] [place] [address] PCP - General Nurse Practitioner - Family 07/09/22 Shannan Malcolm CNP [address] [place] [address] Assigned PCP 04/07/22 Mattie Tellez APRN ENDOCRINOLOGY SPECIALIST [address] [place] [address] Assigned Behavioral Health Provider 09/22/22 documented as of this encounter
--- OUTSIDE RECORDS SUMMARY | 2024-04-05 07:30 | XMS_ITS | Encounter Summary ---
Author Organization [facility] Address [address] [place] [address] Care Team Providers Care Core Blower Name Role Phone Shannan Malcolm CNP Unavailable [phone] Shannan Malcolm CNP Primary Care Provider [phone] Mattie Tellez APRN WASHROOM ATTENDANT Unavailable [phone] Reason for Visit * Reason Onset Date Comments Refill Request 03/29/2024 Encounter Details Date Type Department Care Team (Late st Contact Info) Description 03/29/2024 MyC Refill [facility] Mental Health & Addiction [facility] [address] [place] [address] Mattie Tellez, ROSEMARIE WASHROOM ATTENDANT [address] [place] [address] Refill Request Social History Tobacco [...] on file Legal Sex Female 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 policy. []Medication unable to be refilled by [...] primary care provider. Referral placed for DBT. [facility] will call you to coordinate your care as prescribed by your provider. If you don't hear from a desk representative within 2 business days, please call [phone]. Safety plan reviewed. To the Emergency Department as needed or call after hours crisis line at [phone] or [phone]. [place] Crisis Text Line. Text [place] to 631962 or Suicide LifeLine Chat: suicidepreventionKnock Knockline.org/chat Schedule an appointment with me and Behavioral Health Pointing Machine Operator in 4 weeks Any medication(s) require lab monitoring? No documented in this encounter Plan of Treatment Upcoming Encounters Date Type Department Care Team (Late st Contact Info) Description 04/06/2024 7:30 AM CDT Virtual Visit [facility] Mental Health & Addiction [facility] [address] [place] [address] [address] [place] [address] Lexi Farnsworth, GEOLOGY FACULTY MEMBER [address] [place], [place] [address] 04/06/2024 8:00 AM CDT Virtual Visit [facility] Health & Addiction [facility] [address] [place] [address] Mattie Tellez APRN WASHROOM ATTENDANT [address] [place] [address] documented as of this encounter Visit Diagnoses Diagnosis Generalized anxiety disorder with panic attacks documented in this encounter Additional Health Concerns Assessment Noted Time PHQ-9 Depression Total Score: 9 03/02/20 24 8:53 AM CDT documented as of this encounter Care Teams Core Blower Relationship Specialty Start Date End Date Shannan Malcolm CNP [address] [place] [phone] PCP - General Nurse Practitioner - Family 07/09/22 Shannan Malcolm CNP [address] [place] [address] Assigned PCP 04/07/22 Mattie Tellez APRN CNP [address] [place] [address] 386125 Assigned Behavioral Health Provider 09/22/22 documented as of this encounter
--- OUTSIDE RECORDS SUMMARY | 2024-04-05 07:30 | XMS_ITS | Encounter Summary ---
Author Organization [place] Address [address] [place] [address] Care Team Providers Care Credit Union Teller Name Role Phone Shannan Malcolm CNP Unavailable [phone] Shannan Malcolm CNP Primary Care Provider + [phone] Mattie Tellez APRN FINANCIAL SALES MANAGER Unavailable [phone] Reason for Visit * Reason Onset Date Comments Refill Request 02/24/2024 Encounter Details Date Type Department Care Team (Late st Contact Info) Description 02/24/[address] 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 Mental Health & Addiction [facility] [address] [place] [address] [address] [place] [address] Lexi Farnsworth, RN TELEPHONIC [address] [place], [place] [address] 04/06/2024 8:00 AM CDT Virtual Visit [facility] Mental Health & Addiction [facility] [address] [place] [address] Mattie Tellez APRN FINANCIAL SALES MANAGER [address] [place], [place] [address] documented as of this encounter Visit Diagnoses Diagnosis PTSD (post-traumatic stress disorder) Posttraumatic stress disorder Generalized anxiety disorder with panic attacks MDD (major depressive disorder), recurrent episode, moderate (H) Major depressive disorder, recurrent episode, moderate documented in this encounter Additional Health Concerns Assessment Noted Time PHQ-9 Depression Total Score: 6 01/01/20 24 10:48 AM CDT documented as of this encounter Care Teams Credit Union Teller Relationship Specialty Start Date End Date Shannan Malcolm CNP [address] [place] [address] PCP - General Nurse Practitioner - Family 07/09/22 Shannan Malcolm CNP [address] [place], [place] 1499[address] Assigned PCP 04/07/22 Mattie Tellez APRN CNP [address] [place], [place] 6422[address] Assigned Behavioral Health Provider 09/22/22 documented as of this encounter
--- OUTSIDE RECORDS SUMMARY | 2024-04-05 07:30 | XMS_ITS | Encounter Summary ---
Author Organization [place] Address [address] [place] [address] Care Team Providers Care Diesel Automotive Technician Name Role Phone Shannan Malcolm CNP Unavailable [phone] Shannan Malcolm CNP Primary Care Provider [phone] Mattie Tellez APRN PRODUCT OPERATIONS ASSOCIATE Unavailable [phone] Reason for Visit * Reason Onset Date Comments Refill Request 02/17/2024 dexmethylphenida te (FOCALIN XR) 5 MG 24 hr capsule Encounter Details Date Type Department Care Team (Late st Contact Info) Description 02/17/2024 MyC Refill [facility] Mental Health & Addiction [facility] [address] [place] [address] Mattie Tellez APRN PRODUCT OPERATIONS ASSOCIATE [address] [place] [address] Refill Request (dexmethylphenidate (FOCALI... 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 policy. [x]Medication unable to be refilled by [...] []Scope of Practice: refill request processed by HVAC INSTALLER/MA []Other: Medication(s) requested: - dexmethylphenidate (FOCALIN XR) 5 MG 24 hr capsule Date last ordered: 01/19/2024 Qty: 30 Refills: 0 Take 1 capsule (5 mg) by mouth every morning With Focalin XR 10 mg for total dose of 15 mg. - Appropriate for refill? Provider to review. Controlled Substance Any Controlled Substance(s)? Yes [place] GROUNDS MAINTENANCE WORKER checked? Yes Dexmethylphenidate ER 5 mg cap was last sold on 01/23/2024 for quantity of 30. Other controlled substance on [place] GROUNDS MAINTENANCE WORKER?: Yes Requested medication(s) verified as identical to [...] or call after hours crisis line at [phone] or [phone]. [place] Crisis Text Line. Text [place] to 932102 or Suicide LifeLine Chat: suicidepreventionShip & Duckline.org/chat Schedule an appointment with me in 4 weeks or sooner as needed. Call [facility] [phone] to schedule. Follow up with primary care provider as planned or for acute medical concerns. Call the psychiatric nurse line with medication questions or concerns at [phone]. MyChart may be used to communicate with your provider, but this is not intended to be used for emergencies. Any medication(s) require lab monitoring? No documented in this encounter Plan of Treatment Upcoming Encounters Date Type Department Care Team (Late st Contact Info) Description 04/06/2024 7:30 AM CDT Virtual Visit [facility] Mental Health & Addiction [facility] [address] [place] [address] [address] [place] [address] Lexi Farnsworth, PROFESSIONAL ATHLETES COACH [address] [place], [place] [phone] 04/06/2024 8:00 AM CDT Virtual Visit [facility] Mental Health & Addiction [facility] [address] [place] [address] [address] [place] [address] Mattie Tellez APRN PRODUCT OPERATIONS ASSOCIATE [address] [place] [address] documented as of this encounter Visit Diagnoses Diagnosis Attention deficit hyperactivity disorder (ADHD), unspecified ADHD type documented in this encounter Additional Health Concerns Assessment Noted Time PHQ-9 Depression Total Score: 6 0724/20 24 10:48 AM CDT documented as of this encounter Care Teams Diesel Automotive Technician Relationship Specialty Start Date End Date Shannan Malcolm CNP [address] [place] [address]48[address] PCP - General Nurse Practitioner - Family 07/09/22 Shannan Malcolm CNP [address] [place] [address] Assigned PCP 04/07/22 Mattie Tellez APRN PRODUCT OPERATIONS ASSOCIATE [address] [place] [address] Assigned Behavioral Health Provider 09/22/22 documented as of this encounter
--- OUTSIDE RECORDS SUMMARY | 2024-04-05 07:30 | XMS_ITS | Clinical Summary ---
Author Organization [employer] Address [address] [place] [address] Care Team Providers Care Hazmat Technician Name Role Phone Shannan Malcolm CNP Unavailable [phone] Shannan Malcolm CNP Primary Care Provider [phone] Mattie Tellez APRN OPERATIONS TECHNICIAN Unavailable [phone] Allergies Active Allergy Reactions Criticality Noted Date [...] Patient is followed by Azra Shine, REYNALDO, CORN SHREDDER for ongoing prescription of a controlled medicine. [...] Department Care Team Description 03/29/2024 Ghada Aggarwal [facility] Mental Health & Addiction [facility] [address] [place] [address] Mattie Tellez APRN OPERATIONS TECHNICIAN Refill Request 03/29/2024 Ghada Aggarwal [address] [place] [address] Shannan Malcolm CNP Refill Request 03/25/2024 MyC Medical Advice [facility] [address] [place] [phone] Mattie Tellez APRN CNP 03/17/2024 Orders Only [facility] [address] [place] [phone] Mattie Tellez APRN CNP Generalized anxiety disorder with panic attacks (Primary Dx) 03/16/2024 MyC Refill [facility] [address] [place] [phone] Mattie Tellez APRN OPERATIONS TECHNICIAN Refill Request 03/14/2024 MyC Medical Advice [facility] [address] [place] [phone] Mattie Tellez, ROSEMARIE OPERATIONS TECHNICIAN Medication Request (Change anti-anxiety me... 03/09/2024 MyC Refill [facility] [address] [place] [phone] Mattie Tellez APRN OPERATIONS TECHNICIAN Refill Request (Focalin 5 mg) 03/02/2024 1:00 PM CDT Virtual Visit [address] [place] [address] Shannan Malcolm, GROVER Infection due to 2019 novel coronavirus (Primary Dx); Mild intermittent asthma without complication 03/02/[address] [place] [address] Shannan Malcolm CNP 02/26/2024 MyC Medical Advice [facility] [address] [phone] Angie Hernández 02/24/2024 10:30 AM CDT Virtual Visit [facility] [address] [place] [address] [address] [place] [phone] Mattie Tellez APRN CNP Generalized anxiety disorder with panic attacks (Primary Dx); PTSD (post-traumatic stress disorder); Attention deficit hyperactivity disorder (ADHD), predominantly inattentive type; Alcohol use disorder in remission; MDD (major depressive disorder), recurrent episode, mild (H) 02/24/[address] [address] Shannan Malcolm, OPERATIONS TECHNICIAN Refill Request (Prozac 40) 02/24/2024 MyC Refill [facility] [address] [phone] Mattie Tellez APRN OPERATIONS TECHNICIAN Refill Request 02/17/2024 MyC Refill [facility] [address] [place] [phone] Mattie Tellez APRN OPERATIONS TECHNICIAN Refill Request (dexmethylphenidate (FOCALI... 02/17/2024 MyC Refill [facility] [address] [phone] Mattie Tellez APRN OPERATIONS TECHNICIAN Refill Request (dexmethylphenidate (FOCALI... 01/27/2024 8:00 AM CDT Virtual Visit [facility] [address] [place] [phone] Mattie Tellez APRN CNP Generalized anxiety disorder with panic attacks (Primary Dx); PTSD (post-traumatic stress disorder); Alcohol use disorder in remission; MDD (major depressive disorder), recurrent episode, mild (H); Attention deficit hyperactivity disorder (ADHD), predominantly inattentive type 01/23/2024 MyC Refill [facility] [address] [phone] Mattie Tellez APRN CNP Refill Request (lorazepam (ATIVAN) 0.5 MG ... 01/17/2024 MyC Medical Advice [facility] [address] [place] [phone] Mattie Tellez APRN CNP 01/10/2024 Orders Only [facility] [address] [place] [phone] Mattie Tellez APRN CNP CATHY (generalized anxiety disorder) 01/10/2024 MyC Medical Advice [facility] [address] [place] [phone] Mattie Tellez APRN CNP Medication not working [...] on file Legal Sex Female 3:13 AM NUTRITION INTERN Gender Identity Female 02/08/2022 7:17 AM CDT [...] [facility] Mental Health & Addiction [facility] [address] [address] [place] [address] Lexi Farnsworth, [facility] [address] [place], [place] [address] 04/06/2024 8:00 AM CDT Virtual Visit [facility] Mental Health & Addiction [facility] [address] [address] [place] [phone] Mattie Tellez, SUPERVISOR SILVERING DEPARTMENT OPERATIONS TECHNICIAN [address] [place], [place] [address] Health Maintenance Due Date Last Done Comments [...] and gender (Octavio et al., NEJ, DOI: 10.1056/[id number]) Blood BLOOD SPECIMEN / Unknown Venipuncture / Unknown 02/16/2022 10:35 AM CDT 02/16/2022 10:35 AM CDT us Shannan Malcolm CNP LAB - BLOOD ORDERABLES Fi nal Result [facility] [address] Lab (no room number, 1st floor of clinic) [place] [address], [facility] [phone] * HIV Antigen Antibody Combo (10/14/2017 10:05 AM CDT) HIV Antigen Antibody Combo Nonreactive NR^Nonrea ctive 10/15/2017 11:16 AM CDT [facility] Comment:HIV-1 p24 Ag & HIV-1 /HIV-2 Ab Not Detected Blood specimen (specimen) 10/14/2017 10:05 AM CDT 10/14/2017 10:06 AM CDT us Noreen Buitrago PA-C LAB - BLOOD ORDERABLES Fi nal Result Performing Organization Address City/[facility]/ZIP Co de Phone Number [facility] [address] [place] [address] * Albumin Random Urine Quantitative with Creat Ratio (10/14/2017 10:04 AM CDT) Creatinine Urine 34 mg/dL 10/14/2017 6:08 PM CDT [facility] Albumin Urine mg/L <5 mg/L 10/14/2017 6:13 PM CDT [facility] Albumin Urine mg/g Cr Unable to calculate due to low value 0 - 25 mg/g Cr 10/14/2017 6:13 PM CDT [facility] Urine specimen (specimen) 10/14/2017 10:04 AM CDT 10/14/2017 10:05 AM CDT us Noreen Buitrago PA-C LAB - URINE ORDERABLES Fi nal Result Performing Organization Address City/[facility]/ZIP Co de Phone Number [facility] [address] [phone] * HPV High Risk Types DNA Cervical (10/14/2017 9:54 AM CDT) HPV Source [facility] 10/14/2017 9:41 AM CDT [facility] HPV 16 DNA Negative NEG^Nega tive 10/18/2017 10:59 AM CDT [facility] HPV 18 DNA Negative NEG^Nega tive 10/18/2017 10:59 AM CDT [facility] Other HR HPV Negative NEG^Nega tive 10/18/2017 10:59 AM CDT [facility] Final Diagnosis This patient's sample is negative for HPV DNA. 10/18/2017 10:59 AM CDT [facility] Comment: This test was developed and its performance characteristics determined by the [facility], Molecular Diagnostics Laboratory. It has not [...] Description Cervical Cells 10/17/2017 9:12 AM CDT [facility] Comment:[id number] Cervical Cells 10/14/2017 9: 54 AM CDT 10/14/2017 10:07 AM CDT Noreen Buitrago PA-C LAB - BLOOD ORDERABLES Fi nal Result [id number] [place] [address] * Pap imaged thin layer screen with HPV - recommended age 30 - 65 years (select HPV order below) (10/14/2017 9:40 AM CDT) PAP SAL Doherty Report Patient Name: SKYLAR AKERS MR#: [id number] Specimen #: [id number] Collected: 10/14/2017 Received: 10/14/2017 Reported: 10/16/2017 10:22 [...] RONAK Garcia (ASCP) Processed and screened at [facility], [facility] CLINICAL HISTORY: Currently not having periods, Intra-Uterine Device, Previous normal pap Date of Last Pap: 10/09/2016, Papanicolaou Test Limitations: ??Cervical cytology is a screening test with limited sensitivity; regular screening is critical for cancer prevention; Pap tests are primarily effective for the diagnosis/preventi on of squamous cell carcinoma, not adenocarcinomas or other cancers. TESTING LAB LOCATION: [address] ??[id number] COLLECTION SITE: Client: ??[facility] Location: RVFP (R) COPATH Cytologic material (specimen) 10/14/2017 9:40 AM CDT 10/14/2017 3:39 PM CDT Noreen Buitrago PA-C LAB - OPTIME CLINICAL SPE GENO Final Result COPATH from Last 3 Months or Most Recently Relevant to Health Maintenance Insurance [employer] Advance Directives For more information, please contact: [phone] * Full Code (Latest Code Status on File) Date Activated Date Inactivated Comments 11/14/2021 3:00 AM 11/17/2021 3:53 PM All basic and advanced life-sustaining interventions are performed as appropriate Question Answer Comments Code status determined by: Discussion with patie nt/ legal decision maker Care Teams Hazmat Technician Relationship Specialty Start Date End Date Shannan Malcolm CNP [address] [place] [address] PCP - General Nurse Practitioner - Family 07/09/22 Shannan Malcolm CNP [address] [place] [address] Assigned PCP 04/07/22 Mattie Tellez APRN OPERATIONS TECHNICIAN [address] [place] [address] Assigned Behavioral Health Provider 09/22/22
--- OUTSIDE RECORDS SUMMARY | 2024-04-05 07:30 | XMS_ITS | Encounter Summary ---
Author Organization [facility] Address [address] [place] [address] Care Team Providers Care Gas Truck Driver Name Role Phone Shannan Malcolm CNP Unavailable [phone] Shannan Malcolm CNP Primary Care Provider [phone] Mattie Tellez APRN MOLDING TECHNICIAN Unavailable [phone] Reason for Visit * Reason Onset Date Comments Refill Request 02/17/2024 dexmethylphenida te (FOCALIN XR) 10 MG 24 hr capsule Encounter Details Date Type Department Care Team (Late st Contact Info) Description 02/17/[address] [facility] Mental Health & Addiction [facility] [address] [place] [address] Mattie Tellez APRN MOLDING TECHNICIAN [address] [place] [address] Refill Request (dexmethylphenidate (FOCALI... 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 CURB SETTER Gender Identity Female 02/08/2022 7:17 AM CDT [...] No []Medication refilled per ???Medication Refill in Fringe Weaver?? policy. [x]Medication unable to be refilled by [...] []Scope of Practice: refill request processed by FIELD REIMBURSEMENT MANAGER/MA []Other: Medication(s) requested: - dexmethylphenidate (FOCALIN XR) 10 MG 24 hr capsule Date last ordered: 01/19/2024 Qty: 30 Refills:0 Take 1 capsule (10 mg) by mouth every morning With Focalin XR 5 mg for total dose of 15 mg. - Appropriate for refill? Provider to review. Controlled Substance Any Controlled Substance(s)? Yes [place] MANUSCRIPTS CURATOR checked? Yes Dexmethylphenidate ER 10 mg cp was last sold on for quantity of 30. Other controlled substance on [place] MANUSCRIPTS CURATOR?: Yes Requested medication(s) verified as identical to [...] or call after hours crisis line at [phone] or [phone]. [place] Crisis Text Line. Text [place] to 519925 or Suicide LifeLine Chat: suicidepreventionlifeline.org/chat Schedule an appointment with me in 4 weeks or sooner as needed. Call [facility] [phone] to schedule. Follow up with primary care provider as planned or for acute medical concerns. Call the psychiatric nurse line with medication questions or concerns at [phone]. MyChart may be used to communicate with your provider, but this is not intended to be used for emergencies. Any medication(s) require lab monitoring? No documented in this encounter Plan of Treatment Upcoming Encounters Date Type Department Care Team (Late st Contact Info) Description 04/06/2024 7:30 AM CDT Virtual Visit [facility] Mental Health & Addiction [facility] [address] [place] [address] [address] [place] [address] Lexi Farnsworth, POWER PLANT SUPERINTENDENT [address] [place], [place] [address] 04/06/2024 8:00 AM CDT Virtual Visit [facility] Mental Health & Addiction [facility] [address] [place] [address] Mattie Tellez APRN MOLDING TECHNICIAN [address] [place] [address] documented as of this encounter Visit Diagnoses Diagnosis Attention deficit hyperactivity disorder (ADHD), unspecified ADHD type documented in this encounter Additional Health Concerns Assessment Noted Time PHQ-9 Depression Total Score: 6 24/20 24 10:48 AM CDT documented as of this encounter Care Teams Gas Truck Driver Relationship Specialty Start Date End Date Shannan Malcolm CNP [address] [place] [address] PCP - General Nurse Practitioner - Family 07/09/22 Shannan Malcolm CNP [address] [place] [address] Assigned PCP 04/07/22 Mattie Tellez APRN CNP [address] [place] [address] Assigned Behavioral Health Provider 09/22/22 documented as of this encounter
--- OUTSIDE RECORDS SUMMARY | 2024-04-05 07:30 | XMS_ITS | Encounter Summary ---
Author Organization [facility] Address [address] [place] [address] Care Team Providers Care Principal Librarian Name Role Phone Shannan Malcolm CNP Unavailable [phone] Shannan Malcolm CNP Primary Care Provider [phone] Mattie Tellez APRN JIGMAN Unavailable [phone] Reason for Visit * Reason Onset Date Comments Refill Request 03/29/2024 Encounter Details Date Type Department Care Team (Late st Contact Info) Description 03/29/2024 MyC Refill [address] [address] Shannan Malcolm, JIGMAN [address] [place], [place] [id number] Refill Request Social History Tobacco Use Types [...] on file Legal Sex Female 3:13 AM EVENING SITTER Gender Identity Female 02/08/2022 7:17 AM CDT [...] Description 04/06/2024 7:30 AM CDT Virtual Visit [facility] Mental Health & Addiction [facility] [address] [place] [address] 400 [place] [address] Lexi Farnsworth, [facility] [address] [facility] [address] [place], [place] [address] 04/06/2024 8:00 AM CDT Virtual Visit [facility] Mental Health & Addiction [facility] [address] [place] [address] 400 [place] [phone] Mattie Tellez APRN JIGMAN [address] [place], [place] [address] documented as of this encounter Visit Diagnoses Diagnosis Generalized anxiety disorder with panic attacks documented in this encounter Additional Health Concerns Assessment Noted Time PHQ-9 Depression Total Score: 9 03/02/20 24 8:53 AM CDT documented as of this encounter Care Teams Principal Librarian Relationship Specialty Start Date End Date Shannan Malcolm CNP [address] [place] [address] 657382 PCP - General Nurse Practitioner - Family 07/09/22 Shannan Malcolm CNP [address] [place], [place] [address] Assigned PCP 04/07/22 Mattie Tellez APRN JIGMAN [address] [place] [address] Assigned Behavioral Health Provider 09/22/22 documented as of this encounter
--- OUTSIDE RECORDS SUMMARY | 2024-04-05 07:30 | XMS_ITS | Encounter Summary ---
Author Organization [place] Address [facility] [place] [address] Care Team Providers Care Broaching Machine Repairer Name Role Phone Shannan Malcolm CNP Unavailable [phone] Shannan Malcolm CNP Primary Care Provider [phone] Mattie Tellez APRN OUTSIDE COLLECTOR Unavailable [phone] Encounter Details Date Type Department Care Team (Late st Contact Info) Description 03/17/2024 Orders Only [facility] Mental Health & Addiction [facility] [address] [place] [address] Mattie Tellez APRN OUTSIDE COLLECTOR [address] [facility] [place], [place] [address] Generalized anxiety disorder with panic attacks (Primary [...] on file Legal Sex Female 3:13 AM DRY ROLLER Gender Identity Female 02/08/2022 7:17 AM CDT Sexual Orientation Choose not to disclose 2021 7:17 AM CDT documented as of this encounter Plan of Treatment Upcoming Encounters Date Type Department Care Team (Late st Contact Info) Description 04/06/2024 7:30 AM CDT Virtual Visit [facility] Mental Health & Addiction [facility] [address] [place] [address] Javad Lexi, [facility] [address] [place], [place] [address] 04/06/2024 8:00 AM CDT Virtual Visit [facility] Mental Health & Addiction [facility] [address] [place] [address] Mattie Tellez APRN OUTSIDE COLLECTOR [address] [place], [place] [address] documented as of this encounter Visit Diagnoses Diagnosis Generalized anxiety disorder with panic attacks- Primary documented in this encounter Additional Health Concerns Assessment Noted Time PHQ-9 Depression Total Score: 9 03/02/20 24 8:53 AM CDT documented as of this encounter Care Teams Broaching Machine Repairer Relationship Specialty Start Date End Date Shannan Malcolm CNP [address] [place] [address] PCP - General Nurse Practitioner - Family 07/09/22 Shannan Malcolm CNP [address] [place] [address] Assigned PCP 04/07/22 Mattie Tellez APRN OUTSIDE COLLECTOR [address] [place], [place] [address] Assigned Behavioral Health Provider 09/22/22 documented as of this encounter
--- OUTSIDE RECORDS SUMMARY | 2024-04-05 07:30 | XMS_ITS | Encounter Summary ---
Author Organization [place] Address [facility] [place] [address] Care Team Providers Care Dough Catcher Name Role Phone Shannan Malcolm CNP Unavailable [phone] Shannan Malcolm CNP Primary Care Provider [phone] Mattie Tellez APRN BODY REPAIRER Unavailable [phone] Encounter Details Date Type Department Care Team ([facility] st Contact Info) Description 03/25/2024 [facility] Medical Advice [facility] Mental Health & Addiction [facility] [address] [address] [place] [address] Mattie Tellez APRN BODY REPAIRER [address] [facility] [address] [place], [place] [address] Social History Tobacco Use Types Packs/Day Years [...] on file Legal Sex Female 3:13 AM PARCEL POST DELIVERY Gender Identity Female 02/08/2022 7:17 AM CDT [...] 7:30 AM CDT Virtual Visit [facility] Mental Health & Addiction [facility] [address] [place] [address] 400 [place] [address] Lexi Farnsworth, PACKAGING ASSOCIATE [address] [place], [place] [address] 04/06/2024 8:00 AM CDT Virtual Visit [facility] Mental Health & Addiction [facility] [address] [place] [address] Mattie Tellez APRN BODY REPAIRER [address] [place], [place] [address] documented as of this encounter Visit Diagnoses Not on filedocumented in this encounter Additional Health Concerns Assessment Noted Time PHQ-9 Depression Total Score: 9 03/02/20 24 8:53 AM CDT documented as of this encounter Care Teams Dough Catcher Relationship Specialty Start Date End Date Shannan Malcolm, GROVER [address] [place], [place] [address] PCP - General Nurse Practitioner - Family 07/09/22 Shannan Malcolm CNP [address] [place] [address] 835362 Assigned PCP 04/07/22 Mattie Tellez APRN CNP [address] [place] [address] Assigned Behavioral Health Provider 09/22/22 documented as of this encounter
--- OUTSIDE RECORDS SUMMARY | 2024-04-05 07:30 | XMS_ITS | Encounter Summary ---
Author Organization [facility] Address [address] [place] [address] Care Team Providers Care Director Game Name Role Phone Shannan Malcolm CNP Unavailable [phone] Shannan Malcolm CNP Primary Care Provider [phone] Mattie Tellez APRN CRIMPER ASSEMBLER Unavailable [phone] Reason for Visit * Reason Onset Date Comments Refill Request 03/16/2024 Encounter Details Date Type Department Care Team (Late st Contact Info) Description 03/16/2024 MyC Refill [facility] Mental Health & Addiction [facility] [address] [place] [address] Mattie Tellez, ROSEMARIE CRIMPER ASSEMBLER [address] [place] [address] Refill Request Social History Tobacco [...] on file Legal Sex Female 3:13 AM ENDS DOWN CHECKER Gender Identity Female 02/08/2022 7:17 AM [...] No []Medication refilled per ???Medication Refill in Process Laboratory Specialist?? policy. [x]Medication unable to be refilled by [...] primary care provider. Referral placed for DBT. [facility] will call you to coordinate your care as prescribed by your provider. If you don't hear from a industrial sales representative within 2 business days, please call [phone]. Safety plan reviewed. To the Emergency Department as needed or call after hours crisis line at [phone] or [phone]. [place] Crisis Text Line. Text [place] to 837701 or Suicide LifeLine Chat: suicidepreventionlifeline.org/chat Schedule an appointment with sc and Behavioral Health District Court Administrator in 4 weeks or sooner as needed. Call [facility] at [phone] to schedule. Follow up with primary care provider as planned or for acute medical concerns. Call the psychiatric nurse line with medication questions or concerns at [phone]. MyChart may be used to communicate with your provider, but this is not intended to be used for emergencies. Any medication(s) require lab monitoring? No unless UDS needed documented in this encounter Plan of Treatment Upcoming Encounters Date Type Department Care Team (Late st Contact Info) Description 04/06/2024 7:30 AM CDT Virtual Visit [facility] Mental Health & Addiction [facility] [address] [place] [address] [address] [place] [address] Lexi Farnsworth, DRAY TRUCK DRIVER [address] [place] [address] 04/06/2024 8:00 AM CDT Virtual Visit [facility] Mental Health & Addiction [facility] [address] [place] [address] [address] [place] [address] Mattie Tellez APRN CRIMPER ASSEMBLER [address] [place] [address] documented as of this encounter Visit Diagnoses Diagnosis Attention deficit hyperactivity disorder (ADHD), unspecified ADHD type documented in this encounter Additional Health Concerns Assessment Noted Time PHQ-9 Depression Total Score: 9 03/02/20 24 8:53 AM CDT documented as of this encounter Care Teams Director Game Relationship Specialty Start Date End Date Shannan Malcolm CNP [address] [place] [address]8352 PCP - General Nurse Practitioner - Family 07/09/22 Shannan Malcolm CNP [address] [place] [address]682 Assigned PCP 04/07/22 Mattie Tellez APRN CRIMPER ASSEMBLER [address] [place] [address] Assigned Behavioral Health Provider 09/22/22 documented as of this encounter
--- OUTSIDE RECORDS SUMMARY | 2024-04-05 07:31 | XMS_ITS | Encounter Summary ---
Author Organization [facility] Address [address] [place] [address] Care Team Providers Care Real Estate Recruiter Name Role Phone Shannan Malcolm CNP Unavailable [phone] Shannan Malcolm CNP Primary Care Provider [phone] Mattie Tellez APRN MALTED MILK MASHER Unavailable [phone] Encounter Details Date Type Department Care Team (Latest Contact Info) Description 03/14/2023 [facility] Medical Advice [facility] [address] [place] [address] Mattie Tellez APRN MALTED MILK MASHER 500 [place], [place] [address] Attention deficit hyperactivity disorder (ADHD), predominantly inattentive [...] on file Legal Sex Female 3:13 AM COIN MACHINE COLLECTOR Gender Identity Female 02/08/2022 7:17 AM CDT Sexual Orientation Choose not to disclose 2021 7:17 AM CDT documented as of this encounter Miscellaneous Notes * Telephone Encounter - Yolanda Ahn RN - 03/14/2023 11:00 AM CDT Patient's pharmacy is out of stock on her Concerta 36 mg. She would like it sent to the [facility] in [place]. [place] ADMINISTRATIVE NURSING SUPERVISOR sold date was 02/12/23. methylphenidate HCL ER, [...] Yes Will the patient be using a [facility]? [place] of the pharmacy and phone number for the current request: [facility] pharmacy [address] [facility]. [phone]. Name of the medication requested: ADHD medication [...] Description 04/06/2024 7:30 AM CDT Virtual Visit [facility] & Addiction [facility] [address] [place] [address] Lexi Farnsworth, DIGITAL LIBRARIAN [address] [place] [address] 04/06/2024 8:00 AM CDT Virtual Visit [facility] [address] [place] [address] Mattie Tellez APRN MALTED MILK MASHER 500 [place] [address] documented as of this encounter Visit Diagnoses Diagnosis Attention deficit hyperactivity disorder (ADHD), predominantly inattentive type documented in this encounter Additional Health Concerns Assessment Noted Time PHQ-9 Depression Total Score: 4 12/11/19 23 7:53 AM CDT documented as of this encounter Care Teams Real Estate Recruiter Relationship Specialty Start Date End Date Shannan Malcolm CNP [address] [place] [address] PCP - General Nurse Practitioner - Family 07/09/22 Shannan Malcolm CNP [address] [place] [address] Assigned PCP 04/07/22 Mattie Tellez APRN MALTED MILK MASHER 500 [place] [address] Assigned Behavioral Health Provider 09/22/22 documented as of this encounter
--- OUTSIDE RECORDS SUMMARY | 2024-04-05 07:31 | XMS_ITS | Encounter Summary ---
Author Organization [facility] [place] [facility] Address [address] [place] [address]. [place] [address] Care Team Providers Care Community Service Officer Coordinator Name Role Phone Shannan Malcolm CNP Unavailable [phone] Shannan Malcolm CNP Primary Care Provider [phone] Mattie Tellez APRN BLACK LEATHER TRIMMER Unavailable [phone] Encounter Details Date Type Department Care Team (Late st Contact Info) Description 12/14/2022 [facility] Medical Advice [facility] [address] [address] [place] [address] Mattie Tellez APRN BLACK LEATHER TRIMMER 500 [facility] [place], [place] [address] CATHY (generalized anxiety disorder) Social History Tobacco [...] on file Legal Sex Female 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 The patient reports that Mattie Tellez [...] AM CDT Virtual Visit [facility] & [facility] [address] [place] [address] 400 [place] [address] Lexi Farnsworth, [facility] [address] [place], [place] [address] 04/06/2024 8:00 AM CDT Virtual Visit [facility] [address] [place] [address] [address] [place] [address] Mattie Tellez APRN BLACK LEATHER TRIMMER 500 [place], [place] [address] documented as of this encounter Visit Diagnoses Diagnosis CATHY (generalized anxiety disorder) Generalized anxiety disorder documented in this encounter Additional Health Concerns Assessment Noted Time PHQ-9 Depression Total Score: 4 12/11/19 23 7:53 AM CDT documented as of this encounter Care Teams Community Service Officer Coordinator Relationship Specialty Start Date End Date Shannan Malcolm CNP [address] [place] [address] PCP - General Nurse Practitioner - Family 07/09/22 Shannan Malcolm CNP [address] [place] [address] Assigned PCP 04/07/22 Mattie Tellez APRN BLACK LEATHER TRIMMER 500 [place] [address] Assigned Behavioral Health Provider 09/22/22 documented as of this encounter
--- OUTSIDE RECORDS SUMMARY | 2024-04-05 07:31 | XMS_ITS | Encounter Summary ---
Author Organization [facility] Address [address] [place] [address] Care Team Providers Care Forest Ranger Technician Name Role Phone Shannan Malcolm CNP Unavailable [phone] Nabeel Nolan MD Unavailable [phone] Shannan Malcolm YARD SUPERVISOR Primary Care Provider [phone] Mattie Tellez APRN YARD SUPERVISOR Unavailable [phone] Reason for Visit * Reason Onset Date Comments Prior Auth - Medication 09/21/2022 Methylph enidate HCI ER (OSM) 18MG ER Tablets Encounter Details Date Type Department Care Team (Late st Contact Info) Description 09/21/[address] [address] Shannan Malcolm, YARD SUPERVISOR [address] [place] [address] Prior Auth - Medication (Methylphenidate HCI [...] on file 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 Social Worker Psychiatric advised good RX, patient said she will [...] Rational: Appeal Information: * Telephone Encounter - Noemi Cortes - 09/26/2022 11:52 AM CDT Images from the original note were not included. Central Prior Authorization Team PA Initiation Medication: Methylphenidate HCI ER (OSM) 18MG ER Tablets Insurance Company: [employer] - Pharmacy Filling the Rx: [facility] [place], [place] - [address] Filling Pharmacy Filling Pharmacy Fax: Start Date: 09/26/2022 * Telephone Encounter - Eldon Frost - 09/24/2022 2:41 PM CDT Prior Authorization Retail Medication Request Medication/Dose: [facility] for Methylphenidate HCI ER (OSM) 18MG ER Tablets ICD code (if different than what is on RX): Previously Tried and Failed: Rationale: Insurance Name: Insurance ID: Pharmacy Information (if different than what is on RX) Name: [facility] Phone: [phone] [id number] * Telephone Encounter - Abraahn Velez - 09/21/2022 2:22 PM CDT Forms/Letter Request Type of form/letter: [facility] PA for Methylphenidate HCI ER (OSM) 18MG ER Tablets Have you been seen for this request: N/A Do we have the form/letter: Yes: Placed in TC bin (yellow folder) Who is the form from? [facility] PA for Methylphenidate HCI ER (OSM) 18MG ER Tablets (if otherplease explain) Where did/will the form come from? form was faxed in documented in this encounter Plan of Treatment Upcoming Encounters Date Type Department Care Team (Late st Contact Info) Description 04/06/2024 7:30 AM CDT Virtual Visit [facility] Health & Addiction [facility] [address] [place] [address] Javad, Lexi, [facility] [address] [place], [place] [address] 04/06/2024 8:00 AM CDT Virtual Visit [facility] & Addiction [facility] [address] [place] [phone] Mattie Tellez APRN YARD SUPERVISOR 500 [place], [place] [address] documented as of this encounter Visit Diagnoses Diagnosis Attention deficit hyperactivity disorder (ADHD), predominantly inattentive type- Primary documented in this encounter Additional Health Concerns Assessment Noted Time PHQ-9 Depression Total Score: 25 023 7:10 AM CDT documented as of this encounter Care Teams Forest Ranger Technician Relationship Specialty Start Date End Date Shannan Malcolm CNP [address] [place] [address] PCP - General Nurse Practitioner - Family 07/09/22 Shannan Malcolm CNP [address] [place] [address] Assigned PCP 04/07/22 Nabeel Nolan MD [address] [place] [address] 250 [place], [place] [phone] Assigned Behavioral Health Provider 06/02/22 09/21/22 Mattie Tellez APRN YARD SUPERVISOR [address] [place] [address] 272455 Assigned Behavioral Health Provider 09/22/22 documented as of this encounter
--- OUTSIDE RECORDS SUMMARY | 2024-04-05 07:31 | XMS_ITS | Encounter Summary ---
Author Organization [facility] Address [address] [place] [address] Care Team Providers Care Bookseamer Blindstitch Name Role Phone Shannan Malcolm CNP Unavailable [phone] Shannan Malcolm CNP Primary Care Provider [phone] Mattie Tellez APRN MINERAL INDUSTRY TEACHER Unavailable [phone] Encounter Details Date Type Department Care Team (Late st Contact Info) Description 12/31/2022 MyC Medical Advice [facility] Mental Health & [facility] [address] [address] [place] [address] Mattie Tellez APRN MINERAL INDUSTRY TEACHER 500 [facility] [place], [place] [address] Social History Tobacco Use Types Packs/Day Years [...] on file 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 Gender Identity Female 02/08/2022 7:17 AM CDT [...] APRN, PMHNP- [facility] ([facility]) [facility] Yolanda Ahn RN on 12/31/2022 at 2:55 PM documented in this encounter Plan of Treatment Upcoming Encounters Date Type Department Care Team (Late st Contact Info) Description 04/06/2024 7:30 AM CDT Virtual Visit [facility] Mental Health & [facility] [address] [place] [address] 400 [place] [address] Lexi Farnsworth, [facility] [address] [place], [place] [address] 04/06/2024 8:00 AM CDT Virtual Visit [facility] & [facility] [address] 400 [place] [address] Mattie Tellez APRN [facility] 500 [place], [place] [address] documented as of this encounter Visit Diagnoses Not on filedocumented in this encounter Additional Health Concerns Assessment Noted Time PHQ-9 Depression Total Score: 4 12/11/19 7:53 AM CDT documented as of this encounter Care Teams Bookseamer Blindstitch Relationship Specialty Start Date End Date Shannan Malcolm CNP [address] [place] [address] PCP - General Nurse Practitioner - Family 07/09/22 Shannan Malcolm CNP [address] [place] [address]84392 Assigned PCP 04/07/22 Mattie Tellez APRN MINERAL INDUSTRY TEACHER 500 [place], [place] [address] Assigned Behavioral Health Provider 09/22/22 documented as of this encounter
--- OUTSIDE RECORDS SUMMARY | 2024-04-05 07:31 | XMS_ITS | Encounter Summary ---
Author Organization [facility] Address [address] [place] [address] Care Team Providers Care Business Assistant Name Role Phone Shannan Malcolm CNP Unavailable [phone] Shannan Malcolm CNP Primary Care Provider [phone] Mattie Tellez APRN [facility] Unavailable [phone] Reason for Visit * Reason Onset Date Comments Panel Management 01/01/2024 Encounter Details Date Type Department Care Team (Late st Contact Info) Description 01/01/[address] [address] Shannan Malcolm, [facility] [address] [place] [address] Panel Management Social History Tobacco Use [...] on file Legal Sex Female 3:13 AM 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 Gender Identity Female 02/08/2022 7:17 AM CDT Sexual Orientation Choose not to disclose 2021 7:17 AM CDT documented as of this encounter Plan of Treatment Upcoming Encounters Date Type Department Care Team (Late st Contact Info) Description 04/06/2024 7:30 AM CDT Virtual Visit [facility] Mental Health & Addiction [facility] [address] [place] [address] Lexi Farnsworth, [facility] [address] [place], [place] [address] 04/06/2024 8:00 AM CDT Virtual Visit [facility] Mental Health & Addiction [facility] [address] [place] [address] Mattie Tellez APRN [facility] [address] [place], [place] [address] documented as of this encounter Visit Diagnoses Not on filedocumented in this encounter Additional Health Concerns Assessment Noted Time PHQ-9 Depression Total Score: 6 01/01/20 24 10:48 AM CDT documented as of this encounter Care Teams Business Assistant Relationship Specialty Start Date End Date Shannan Malcolm CNP [address] [place] [address] PCP - General Nurse Practitioner - Family 07/09/22 Shannan Malcolm CNP [address] [place] [address] Assigned PCP 04/07/22 Mattie Tellez APRN [facility] 500 [place] [address] Assigned Behavioral Health Provider 09/22/22 documented as of this encounter
--- OUTSIDE RECORDS SUMMARY | 2024-04-05 07:31 | XMS_ITS | Encounter Summary ---
Author Organization [facility] Address [address] [place] [address] Care Team Providers Care Forecast Analyst Name Role Phone Shannan Malcolm CNP Unavailable [phone] Shannan Malcolm CNP Primary Care Provider [phone] Mattie Tellez APRN CONFERENCE ORGANIZER Unavailable [phone] Reason for Visit * Reason Onset Date Comments Refill Request 03/13/2023 Encounter Details Date Type Department Care Team (Late st Contact Info) Description 03/13/2023 MyC Refill [facility] Mental Health & Addiction [facility] [address] [place] [address] Mattie Tellez, [place] CONFERENCE ORGANIZER 500 [place] [address] Refill Request Social History Tobacco [...] on file 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 [place] Crisis Text Line. Text [place] to 938554 or Suicide LifeLine Chat: suicidepreventionlifeline.org/chat Schedule an appointment with me in 5 weeks or sooner as needed. Call [facility] [phone] to schedule. Follow up with primary care provider as planned or for acute medical concerns. Call the psychiatric nurse line with medication questions or concerns at [phone]. MyChart may be used to communicate with your provider, but this is not intended to be used for emergencies. []Medication refilled per ???Medication Refill in Physical Therapist Aide?? policy. [x]Medication unable to be refilled by [...] Description 04/06/2024 7:30 AM CDT Virtual Visit [facility] Mental Health & Addiction [facility] [address] [place] [address] 400 [place] [address] Lexi Farnsworth, [facility] [address] [place], [place] [address] 04/06/2024 8:00 AM CDT Virtual Visit [facility] Mental [facility] & Addiction [facility] [address] [place] [address] 400 [place] [address] Mattie Tellez APRN [facility] 500 [place], [place] [address] documented as of this encounter Visit Diagnoses Diagnosis CATHY (generalized anxiety disorder) Generalized anxiety disorder documented in this encounter Additional Health Concerns Assessment Noted Time PHQ-9 Depression Total Score: 4 12/11/19 23 7:53 AM CDT documented as of this encounter Care Teams Forecast Analyst Relationship Specialty Start Date End Date Shannan Malcolm CNP [address] [place] [address] [phone] PCP - General Nurse Practitioner - Family 07/09/22 Shannan Malcolm CNP [address] [place] [address] Assigned PCP 04/07/22 Mattie Tellez APRN CONFERENCE ORGANIZER 500 [place] [address] Assigned Behavioral Health Provider 09/22/22 documented as of this encounter
--- OUTSIDE RECORDS SUMMARY | 2024-04-05 07:31 | XMS_ITS | Encounter Summary ---
Author Organization [facility] Address [address] [place] [address] Care Team Providers Care Municipal Engineer Name Role Phone Shannan Malcolm TRADER FIXED INCOME Unavailable [phone] Nabeel Nolan MD Unavailable [phone] Shannan Malcolm TRADER FIXED INCOME Primary Care Provider Mattie Tellez APRN TRADER FIXED INCOME Unavailable [phone] Reason for Visit * Reason Onset Date Comments Refill Request 09/20/2022 Encounter Details Date Type Department Care Team (Late st Contact Info) Description 09/20/2022 MyC Refill [address] [phone] Shannan Malcolm, TRADER FIXED INCOME [address] [place] [phone] Refill Request Social History Tobacco Use Types [...] on file Legal Sex 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 [address] [address] [place] [address] Lexi Farnsworth, JET OPERATOR [address] [place], [place] [address] 04/06/2024 8:00 AM CDT Virtual Visit [facility] [address] 400 [place] [phone] Mattie Tellez APRN TRADER FIXED INCOME 500 [place], [place] [address] documented as of this encounter Visit Diagnoses Diagnosis Anxiety Anxiety state, unspecified Panic attack Panic disorder without agoraphobia documented in this encounter Additional Health Concerns Assessment Noted Time PHQ-9 Depression Total Score: 25 023 7:10 AM CDT documented as of this encounter Care Teams Municipal Engineer Relationship Specialty Start Date End Date Shannan Malcolm CNP [address] [place] [address] PCP - General Nurse Practitioner - Family 07/09/22 Shannan Malcolm CNP [address] [place] [address] Assigned PCP 04/07/22 Nabeel Nolan MD [address] [place] [address] 250 [place] [address] Assigned Behavioral Health Provider 06/02/22 09/21/22 Mattie Tellez APRN TRADER FIXED INCOME 500 [place] [address] Assigned Behavioral Health Provider 09/22/22 documented as of this encounter
--- OUTSIDE RECORDS SUMMARY | 2024-04-05 07:31 | XMS_ITS | Encounter Summary ---
Author Organization [facility] Address [address] [place] [address]. [place] [address] Care Team Providers Care Liner Roll Changer Name Role Phone Shannan Malcolm CNP Unavailable [phone] Shannan Malcolm CNP Primary Care Provider [phone] Mattie Tellez APRN MATERIAL HANDLER FLOORPERSON Unavailable [phone] Reason for Visit * Reason Onset Date Comments Early refill request 10/10/2023 clonazePAM (KLONOPIN) 0.5 MG tablet Encounter Details Date Type Department Care Team (Late st Contact Info) Description 10/10/2023 [facility] Medical Advice [facility] Mental Health & Addiction [facility] [address] [place] [address] [address] [place] [address] Mattie Tellez, [place] MATERIAL HANDLER FLOORPERSON [address] [place] [address] Early refill request (clonazePAM (KLONOPIN... 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 Will message patient. 2) Phoned [facility] in [place]. Gave verbal order Ok for early fill per Mattie Tellez CNPPharmacy cctv technician verbalized understanding and stated that the [...] original note were not included. Reviewed patient's SiCortext message. She is requesting an early refill of Clonazepam. ED CASTRO RN on 10/10/2023 at 9:28 AM documented in this encounter Plan of Treatment Upcoming Encounters Date Type Department Care Team (Late st Contact Info) Description 04/06/2024 7:30 AM CDT Virtual Visit [facility] Mental Health & Addiction [facility] [address] [place] [address] Lexi Farnsworth, [facility] [address] [place] [address] 04/06/2024 8:00 AM CDT Virtual Visit [facility] Mental Health & Addiction [facility] [address] [place] [phone] Mattie Tellez APRN MATERIAL HANDLER FLOORPERSON 500 [place] [address] documented as of this encounter Visit Diagnoses Not on filedocumented in this encounter Additional Health Concerns Assessment Noted Time PHQ-9 Depression Total Score: 4 12/11/19 23 7:53 AM CDT documented as of this encounter Care Teams Liner Roll Changer Relationship Specialty Start Date End Date Shannan Malcolm CNP [address] [place] [address] PCP - General Nurse Practitioner - Family 07/09/22 Shannan Malcolm CNP [address] [place] [address] Assigned PCP 04/07/22 Mattie Tellez APRN MATERIAL HANDLER FLOORPERSON [address] [place] [address] Assigned Behavioral Health Provider 09/22/22 documented as of this encounter
--- OUTSIDE RECORDS SUMMARY | 2024-04-05 07:31 | XMS_ITS | Encounter Summary ---
Author Organization [facility] Address [address] [place] [address] Care Team Providers Care Software Configuration Engineer Name Role Phone Shannan Malcolm CNP Unavailable [phone] Shannan Malcolm CNP Primary Care Provider + [phone] Mattie Tellez APRN DIRECTOR OF THE BIOPHYSICS FACILITY Unavailable [phone] Reason for Visit * Reason Onset Date Comments Medication Question 12/26/2023 Encounter Details Date Type Department Care Team (Late st Contact Info) Description 12/26/2023 MyC Medical Advice [facility] [address] [place] [address] Mattie Tellez APRN DIRECTOR OF THE BIOPHYSICS FACILITY [address] [place] [address] Medication Question Social History Tobacco [...] on file Legal Sex Female 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 AM REEL WINDER Gender Identity Female 02/08/2022 7:17 AM CDT Sexual Orientation Choose not to disclose 2021 7:17 AM CDT documented as of this encounter Plan of Treatment Upcoming Encounters Date Type Department Care Team (Late st Contact Info) Description 04/06/2024 7:30 AM CDT Virtual Visit [facility] [address] [place] [address] Lexi Farnsworth, [facility] [address] [place], [place] [address] 04/06/2024 8:00 AM CDT Virtual Visit [facility] [address] [place] [phone] Mattie Tellez APRN DIRECTOR OF THE BIOPHYSICS FACILITY [address] [place], [place] 868[address] documented as of this encounter Visit Diagnoses Not on filedocumented in this encounter Additional Health Concerns Assessment Noted Time PHQ-9 Depression Total Score: 4 12/11/19 23 7:53 AM CDT documented as of this encounter Care Teams Software Configuration Engineer Relationship Specialty Start Date End Date Shannan Malcolm CNP [address] [place] [address] PCP - General Nurse Practitioner - Family 07/09/22 Shannan Malcolm CNP [address] [place] [address] Assigned PCP 04/07/22 Mattie Tellez APRN DIRECTOR OF THE BIOPHYSICS FACILITY [address] [place] [address] Assigned Behavioral Health Provider 09/22/22 documented as of this encounter
--- OUTSIDE RECORDS SUMMARY | 2024-04-05 07:31 | XMS_ITS | Encounter Summary ---
Author Organization [facility] Address [facility] [place] [place] [address] Care Team Providers Care Supervisor Grove Name Role Phone Shannan Malcolm ENT SURGEON Unavailable [phone] Shannan Malcolm CNP Primary Care Provider + [phone] Mattie Tellez APRN ENT SURGEON Unavailable [phone] Encounter Details Date Type Department Care Team ([facility] Contact Info) Description 04/11/2023 Telephone [facility] Behavioral Health Intake [address] [place] [phone] Generic, Behavioral Intake, Social History Tobacco Use [...] on file Legal Sex Female 3:13 AM TERMITE EXTERMINATOR Gender Identity Female 02/08/2022 7:17 AM CDT Sexual Orientation Choose not to disclose 2021 7:17 AM CDT documented as of this encounter Miscellaneous Notes * Telephone Encounter - Nadira Ramos RN - 04/12/2023 8:42 AM CDT Images from the original note were not included. Reviewed documentation from [facility] coordinator. Pharmacy won't cover 2, 10mg capsules [...] or call after hours crisis line at [phone] or [phone]. [place] Crisis Text Line. Text [place] to 858602 or Suicide LifeLine Chat: suicidepreventionlifeline.org/chat Schedule an appointment with me in 3 weeks or sooner as needed. Call [facility] [phone] to schedule. Follow up with primary care provider as planned or for acute medical concerns. Call the psychiatric nurse line with medication questions or concerns at [phone]. Signicathart may be used to communicate with your [...] number to reach pharmacy: Other phone number: [phone] Best Time: MARIO Can we leave a detailed message on this number? Not Applicable Travel screening: Not Applicable documented in this encounter Plan of Treatment Upcoming Encounters Date Type Department Care Team (Late st Contact Info) Description 04/06/2024 7:30 AM CDT Virtual Visit [facility] Mental Health & Addiction [facility] [address] [place] [address] Lexi Farnsworth, [facility] [address] [place] [address] 04/06/2024 8:00 AM CDT Virtual Visit [facility] Mental Health & Addiction [facility] [address] [place] [phone] Mattie Tellez APRN ENT SURGEON [address] [place], [place] 3[address] documented as of this encounter Visit Diagnoses Not on filedocumented in this encounter Additional Health Concerns Assessment Noted Time PHQ-9 Depression Total Score: 4 12/11/19 7:53 AM CDT documented as of this encounter Care Teams Supervisor Grove Relationship Specialty Start Date End Date Shannan Malcolm CNP [address] [place] [address] PCP - General Nurse Practitioner - Family 07/09/22 Shannan Malcolm CNP [address] [place] [address] Assigned PCP 04/07/22 Mattie Tellez APRN ENT SURGEON 500 [place], [place] 9870[address] Assigned Behavioral Health Provider 09/22/22 documented as of this encounter
--- OUTSIDE RECORDS SUMMARY | 2024-04-05 07:31 | XMS_ITS | Encounter Summary ---
Author Organization [facility] Address [facility] [place] [address] Care Team Providers Care Biology Faculty Member Name Role Phone Shannan Malcolm CNP Unavailable [phone] Shannan Malcolm CNP Primary Care Provider + [phone] Mattie Tellez APRN BUSINESS AFFAIRS MANAGER Unavailable [phone] Encounter Details Date Type Department Care Team (Late st Contact Info) Description 01/17/2024 [facility] Medical Advice [facility] Mental Health & Addiction [facility] [address] [address] [place] [address] Mattie Tellez APRN BUSINESS AFFAIRS MANAGER 500 [facility] [place], [place] 37[address] Social History Tobacco Use Types Packs/Day Years [...] on file Legal Sex Female 3:13 AM ICT QUALITY ASSURANCE ENGINEER Gender Identity Female 02/08/2022 7:17 AM CDT Sexual Orientation Choose not to disclose 2021 7:17 AM CDT documented as of this encounter Miscellaneous Notes * Telephone Encounter - Yolanda Ahn, RN - 01/17/2024 11:33 AM CDT Patient's pharmacy is closed on Saturday. She would like to warehouse order picker her Focalin XR 5 mg and 10 mg today. It is dated on 01/19/24 so pharmacy won't dispense it. She only has 2 days left. [place] [employer] last sold 12/20/23 for both. She would like it dated for today if possible. Yolanda Ahn RN on 01/17/2024 at 11:35 AM * Telephone Encounter - Chantel Kilpatrick - 01/17/2024 11:07 AM CDTSummary: rx request needs earlier date for warehouse order picker Reason for call: Medication If this is a refill request, has the caller requested the refill from the pharmacy already? Yes Will the patient be using a [facility]? Yes Name of the [facility] and [facility] the [facility] [place] [phone] Name of the medication requested: focalin xr 5 and focalyn xr 10 Other request: has two left, today is day 28. Rx refill is dated for the when they are not open. Pt would like to warehouse order picker today. Phone number to reach patient: Cell number on file: Telephone Information: Best Time: any Can we leave a detailed message on this number? YES Travel screening: Negative documented in this encounter Plan of Treatment Upcoming Encounters Date Type Department Care Team (Late st Contact Info) Description 04/06/2024 7:30 AM CDT Virtual Visit [facility] Mental Health & Addiction [facility] [address] [place] [address] Lexi Farnsworth, LENS CEMENTER [address] [place] [address] 04/06/2024 8:00 AM CDT Virtual Visit [facility] Mental Health & Addiction [facility] [address] [place] [address] Mattie Tellez APRN BUSINESS AFFAIRS MANAGER [address] [place] [address] documented as of this encounter Visit Diagnoses Not on filedocumented in this encounter Additional Health Concerns Assessment Noted Time PHQ-9 Depression Total Score: 6 01/01/20 24 10:48 AM CDT documented as of this encounter Care Teams Biology Faculty Member Relationship Specialty Start Date End Date Shannan Malcolm CNP [address] [place] [address] PCP - General Nurse Practitioner - Family 07/09/22 Shannan Malcolm CNP [address] [place] [address] Assigned PCP 04/07/22 Mattie Tellez APRN BUSINESS AFFAIRS MANAGER 500 [place] [address] Assigned Behavioral Health Provider 09/22/22 documented as of this encounter
--- OUTSIDE RECORDS SUMMARY | 2024-04-05 07:31 | XMS_ITS | Encounter Summary ---
Author Organization [facility] Address [address] [place] [address]. [place] [address] Care Team Providers Care Manager Audit Name Role Phone Shannan Malcolm CNP Unavailable [phone] Shannan Malcolm CNP Primary Care Provider [phone] Mattie Tellez APRN REINFORCING STEEL WORKER WIRE MESH Unavailable [phone] Reason for Visit * Reason Onset Date Comments See 05/17/23 MyChart Med Advice encounter 023 Encounter Details Date Type Department Care Team (Late st Contact Info) Description 05/22/[address] [facility] Mental Health [facility] [address] [place] [address] Mattie Tellez APRN REINFORCING STEEL WORKER WIRE MESH [address] [place] [address] See 05/17/23 MyChart Med Advice [...] on file Legal Sex Female 3:13 AM DRAPERY HANGER Gender Identity Female 02/08/2022 7:17 AM CDT Sexual Orientation Choose not to disclose 2021 7:17 AM CDT documented as of this encounter Miscellaneous Notes * Telephone Encounter - Edilia Costello, RN - 05/22/2023 1:41 PM CST This being addressed in 05/17/23/ [facility] Med Advice encounter ERY HANGER documented in this encounter Plan of Treatment Upcoming Encounters Date Type Department Care Team (Late st Contact Info) Description 04/06/2024 7:30 AM CDT Virtual Visit [facility] Mental Health & Addiction [facility] [address] [place] [address] [address] [place] [address] Lexi Farnswotrh, COLLISION REPAIRER [address] [place], [place] [address] 04/06/2024 8:00 AM CDT Virtual Visit [facility] Mental Health & Addiction [facility] [address] [place] [address] Mattie Tellez APRN [facility] 500 [place], [place] [address] documented as of this encounter Visit Diagnoses Diagnosis Attention deficit hyperactivity disorder (ADHD), predominantly inattentive type documented in this encounter Additional Health Concerns Assessment Noted Time PHQ-9 Depression Total Score: 4 12/11/19 7:53 AM CDT documented as of this encounter Care Teams Manager Audit Relationship Specialty Start Date End Date Shannan Malcolm CNP [address] [place] [id number] PCP - General Nurse Practitioner - Family 07/09/22 Shannan Malcolm CNP [address] [place] [address] 868202 Assigned PCP 04/07/22 Mattie Tellez APRN REINFORCING STEEL WORKER WIRE MESH [address] [place], [place] [address] Assigned Behavioral Health Provider 09/22/22 documented as of this encounter
--- OUTSIDE RECORDS SUMMARY | 2024-04-05 07:31 | XMS_ITS | Encounter Summary ---
Author Organization [facility] Address [address] [place] [address] Care Team Providers Care Environmental Construction Engineer Name Role Phone Shannan Malcolm CNP Unavailable [phone] Shannan Malcolm CNP Primary Care Provider + [phone] Mattie Tellez APRN LOST AND FOUND CLERK Unavailable [phone] Reason for Visit * Reason Onset Date Comments Refill Request 10/07/2022 Encounter Details Date Type Department Care Team (Late st Contact Info) Description 10/07/2022 MyC Refill [facility] Mental Health & Addiction [facility] [address] [address] [place] [address] Mattie Tellez, [place] LOST AND FOUND CLERK 500 [place] [address] Refill Request Social History Tobacco [...] on file Legal Sex Female 3:13 AM GUIDE RAIL CLEANER Gender Identity Female 02/08/2022 7:17 AM CDT [...] [facility] [address] [place] [address] 400 [place] [address] Lexi Farnsworth, [facility] [address] [facility] [address] [place], [place] [address] 04/06/2024 8:00 AM CDT Virtual Visit [facility] Health & Addiction [facility] [address] [place] [address] 400 [place] [address] Mattie Tellez APRN LOST AND FOUND CLERK 500 [place], [place] [address] documented as of this encounter Visit Diagnoses Diagnosis Anxiety Anxiety state, unspecified Panic attack Panic disorder without agoraphobia documented in this encounter Additional Health Concerns Assessment Noted Time PHQ-9 Depression Total Score: 25 023 7:10 AM CDT documented as of this encounter Care Teams Environmental Construction Engineer Relationship Specialty Start Date End Date Shannan Malcolm CNP [address] [place] [address] PCP - General Nurse Practitioner - Family 07/09/22 Shannan Malcolm CNP [address] [place] [address] Assigned PCP 04/07/22 Mattie Tellez APRN LOST AND FOUND CLERK 500 [place] [address] Assigned Behavioral Health Provider 09/22/22 documented as of this encounter
--- OUTSIDE RECORDS SUMMARY | 2024-04-05 07:31 | XMS_ITS | Encounter Summary ---
Author Organization [facility] Address [address] [place] [address] Care Team Providers Care Records And Tape Recordings Engineer Name Role Phone Shannan Malcolm CNP Unavailable [phone] Shannan Malcolm CNP Primary Care Provider + [phone] Mattie Tellez APRN MACHINE CLERICAL VERIFIER Unavailable [phone] Reason for Visit * Reason Onset Date Comments Medication Request 10/26/2023 an afternoon ADHD medication Encounter Details Date Type Department Care Team (Late st Contact Info) Description 10/26/2023 [facility] Medical Advice [facility] Mental Health & Addiction [facility] [address] [address] [place] [address] Mattie Tellez APRN MACHINE CLERICAL VERIFIER [address] [place] [address] Medication Request (an afternoon ADHD [...] on file Legal Sex Female 3:13 AM ARCADE ATTENDANT Gender Identity Female 02/08/2022 7:17 AM CDT [...] APRN, PMHNP- [facility] ([facility]) [facility] RN reviewed order history - Outpatient Medication Detail Disp Refills Start End LORENZO dexmethylphenidate (FOCALIN) 2.5 MG tablet 30 tablet 0 10/28/2023 -- No Sig - Route: Take 1-2 tablets (2.5-5 mg) by mouth daily as needed in the afternoon for ADHD. - Oral Sent to pharmacy as: Dexmethylphenidate HCl 2.5 MG Oral Tablet (FOCALIN) Class: E-Prescribe Earliest Fill Date: 10/28/2023 Order: [id number] E-Prescribing Status: Receipt confirmed by pharmacy (10/28/2023 10:32 AM CDT) Medication Administration Instructions as needed in the afternoon for ADHD. Pharmacy [facility] [place], [place] - [address] HERI MONTGOMERY RN sent a MyC message to the patient with the above information. Carlene Zavaleta RN on 10/28/2023 at 10:43 AM documented in this encounter Plan of Treatment Upcoming Encounters Date Type Department Care Team (Late st Contact Info) Description 04/06/2024 7:30 AM CDT Virtual Visit [facility] Mental Health & Addiction [facility] [address] [place] [address] Lexi Farnsworth, WINDOWS SERVER ADMINISTRATOR [address] [place] [address] 04/06/2024 8:00 AM CDT Virtual Visit [facility] Mental Health & Addiction [facility] [address] [place] [address] Mattie Tellez APRN MACHINE CLERICAL VERIFIER [address] [place] [address] documented as of this encounter Visit Diagnoses Not on filedocumented in this encounter Additional Health Concerns Assessment Noted Time PHQ-9 Depression Total Score: 4 12/11/19 23 7:53 AM CDT documented as of this encounter Care Teams Records And Tape Recordings Engineer Relationship Specialty Start Date End Date Shannan Malcolm CNP [address] [place] [address] [id number] PCP - General Nurse Practitioner - Family 07/09/22 Shannan Malcolm CNP [address] [place] [address] Assigned PCP 04/07/22 Mattie Tellez APRN MACHINE CLERICAL VERIFIER [address] [place] [address] Assigned Behavioral Health Provider 09/22/22 documented as of this encounter
--- OUTSIDE RECORDS SUMMARY | 2024-04-05 07:31 | XMS_ITS | Encounter Summary ---
Author Organization [place] Address [address] [place] [address] Care Team Providers Care Roof Bolting Coal Miner Name Role Phone Shannan Malcolm CNP Unavailable [phone] Nabeel Nolan MD Unavailable [phone] Shannan Malcolm PEOPLESOFT FINANCIAL DEVELOPER Primary Care Provider [phone] Mattie Tellez APRN PEOPLESOFT FINANCIAL DEVELOPER Unavailable [phone] Reason for Visit * Reason Comments Medication Refill Encounter Details Date Type Department Care Team (Late st Contact Info) Description 09/15/[address] [phone] Shannan Malcolm, PEOPLESOFT FINANCIAL DEVELOPER [address] [place] [phone] Medication Refill Social History Tobacco Use Types [...] on file Legal Sex Female 3:13 AM LARYNGOLOGIST Gender Identity Female 02/08/2022 7:17 AM CDT [...] [facility] [address] [place] [address] Lexi Farnsworth, [facility] [address] [place] [address] 04/06/2024 8:00 AM CDT Virtual Visit [facility] Health & Addiction [facility] [address] [place] [phone] Mattie Tellez APRN [facility] 500 [place], [place] [address] documented as of this encounter Visit Diagnoses Diagnosis Anxiety Anxiety state, unspecified Panic attack Panic disorder without agoraphobia documented in this encounter Additional Health Concerns Assessment Noted Time PHQ-9 Depression Total Score: 25 023 7:10 AM CDT documented as of this encounter Care Teams Roof Bolting Coal Miner Relationship Specialty Start Date End Date Shannan Malcolm CNP [address] [place] [address] PCP - General Nurse Practitioner - Family 07/09/22 Shannan Malcolm CNP [address] [place] [address] Assigned PCP 04/07/22 Nabeel Nolan MD [address] [address] Assigned Behavioral Health Provider 06/02/22 09/21/22 Mattie Tellez APRN PEOPLESOFT FINANCIAL DEVELOPER [address] [place] [address] Assigned Behavioral Health Provider 09/22/22 documented as of this encounter
--- OUTSIDE RECORDS SUMMARY | 2024-04-05 07:31 | XMS_ITS | Encounter Summary ---
Author Organization [facility] Address [address] [place] [address] Care Team Providers Care Assistant Brand Manager Name Role Phone Shannan Malcolm CNP Unavailable [phone] Shannan Malcolm CNP Primary Care Provider [phone] Mattie Tellez APRN QUALITY MEASUREMENT SPECIALIST Unavailable [phone] Reason for Visit * Reason Onset Date Comments Prior Auth - Medication 02/07/2023 methylph enidate HCL ER, [facility], (CONCERTA) 27 MG CR tablet- [place] APPROVED Encounter Details Date Type Department Care Team (Late st Contact Info) Description 02/07/2023 Telephone [facility] Mental Health & Addiction [facility] [address] [place] [address] Mattie Tellez APRN QUALITY MEASUREMENT SPECIALIST [address] [place] [address] Prior Auth - Medication (methylphenidate [...] on file Legal Sex Female 3:13 AM SOAP SLABBER Gender Identity Female 02/08/2022 7:17 AM CDT [...] Approved Dose/Quantity: 30 Reference #: Insurance Company: fflick Non-Specialty PA's - Expected CoPay: CoPay Card Available: Financial Assistance Needed: Which Pharmacy is filling the prescription: [facility] #[facility] [place] - [address] NATURAL RESOURCES EXTENSION EDUC[address] Pharmacy Notified: Yes Patient Notified: Yes pharmacy will notify when ready * Telephone Encounter - Latesha Lopez - 02/12/2023 2:58 PM CDT Images from the original note were not included. Central Prior Authorization Team - PA Initiation Medication: METHYLPHENIDATE HCL ER 27 MG PO TB24 Insurance Company: fflick Non-Specialty PA's - Pharmacy Filling the Rx: [id number] [place] - [address] NATURAL RESOURCES EXTENSION EDUC[address] Filling Pharmacy Filling Pharmacy Fax: Start Date: 02/12/2023 * Telephone Encounter - Mariann Maloney RN - 02/12/2023 12:31 PM CDT RN checked with pharmacy and the patient used [facility] to nut picker a 30-day supply for $36.09. Will [...] [facility] Mental [facility] & Addiction [facility] [address] [place] [address] [address] [place] [address] Lexi Farnsworth, [facility] [address] [facility] [address] [place] [address] 04/06/2024 8:00 AM CDT Virtual Visit [facility] Mental Health & Addiction [facility] [address] [address] [place] [address] Mattie Tellez APRN QUALITY MEASUREMENT SPECIALIST [address] [place] [address] documented as of this encounter Visit Diagnoses Not on filedocumented in this encounter Additional Health Concerns Assessment Noted Time PHQ-9 Depression Total Score: 4 12/11/19 23 7:53 AM CDT documented as of this encounter Care Teams Assistant Brand Manager Relationship Specialty Start Date End Date Shannan Malcolm CNP [address] [place] [address] PCP - General Nurse Practitioner - Family 07/09/22 Shannan Malcolm CNP [address] [place] [address] Assigned PCP 04/07/22 Mattie Tellez APRN QUALITY MEASUREMENT SPECIALIST [address] [place] [address] Assigned Behavioral Health Provider 09/22/22 documented as of this encounter
--- OUTSIDE RECORDS SUMMARY | 2024-04-05 07:31 | XMS_ITS | Encounter Summary ---
Author Organization [place] Address [address] [place] [address] Care Team Providers Care Offender Employment Specialist Name Role Phone Shannan Malcolm CNP Unavailable [phone] Shannan Malcolm CNP Primary Care Provider + [phone] Mattie Tellez APRN WIRE COILER Unavailable [phone] Reason for Visit * Reason Onset Date Comments Refill Request 04/10/2023 Encounter Details Date Type Department Care Team (Late st Contact Info) Description 04/10/2023 MyC Refill [facility] [address] [place] [address] Mattie Tellez, ROSEMARIE WIRE COILER [address] [place] [address] Refill Request Social History Tobacco [...] on file Legal Sex Female 3:13 AM LANGUAGES AND LITERATURE INSTRUCTOR Gender Identity Female 02/08/2022 7:17 AM CDT Sexual Orientation Choose not to disclose 2021 7:17 AM CDT documented as of this encounter Miscellaneous Notes * Telephone Encounter - Shannon Boyer RN - 04/11/2023 12:18 PM CDT Dane Vincent, As requested, a prescription for lorazepam was sent to [facility] pharmacy in [place] this morning. Have a great day! Shannon Aggarwal RN. documented in this encounter Plan of Treatment Upcoming Encounters Date Type Department Care Team (Late st Contact Info) Description 04/06/2024 7:30 AM CDT Virtual Visit [facility] [address] [place] [address] 400 [place] [address] Lexi Farnsworth, LITHARGE MILL OPERATOR [address] [place], [place] [address] 04/06/2024 8:00 AM CDT [facility] [address] [place] [address] Mattie Tellez APRN [facility] [address] [place], [place] [address] documented as of this encounter Visit Diagnoses Diagnosis CATHY (generalized anxiety disorder) Generalized anxiety disorder documented in this encounter Additional Health Concerns Assessment Noted Time PHQ-9 Depression Total Score: 4 12/11/19 23 7:53 AM CDT documented as of this encounter Care Teams Offender Employment Specialist Relationship Specialty Start Date End Date Shannan Malcolm CNP [address] [place] [address] [id number] PCP - General Nurse Practitioner - Family 07/09/22 Shannan Malcolm CNP [address] [place] [address] 917352 Assigned PCP 04/07/22 Mattie Tellez APRN WIRE COILER [address] [place] [address] Assigned Behavioral Health Provider 09/22/22 documented as of this encounter
--- OUTSIDE RECORDS SUMMARY | 2024-04-05 07:31 | XMS_ITS | Encounter Summary ---
Author Organization [place] Address [facility] [place] [address] Care Team Providers Care Well Driller Name Role Phone Shannan Malcolm CNP Unavailable [phone] Shannan Malcolm CNP Primary Care Provider + [phone] Mattie Tellez APRN WILDLIFE BIOLOGIST Unavailable [phone] Encounter Details Date Type Department Care Team (Late st Contact Info) Description 11/13/2023 [facility] [address] [address] [place] [address] Mattie Tellez APRN WILDLIFE BIOLOGIST 500 [facility] [place], [place] [address] Social History Tobacco Use Types Packs/Day Years [...] file Legal Sex Female 3:13 AM DIRECTOR SEMICONDUCTOR Gender Identity Female 02/08/2022 7:17 AM CDT Sexual Orientation Choose not to disclose 2021 7:17 AM CDT documented as of this encounter Plan of Treatment Upcoming Encounters Date Type Department Care Team (Late st Contact Info) Description 04/06/2024 7:30 AM CDT Virtual Visit [facility] [address] [place] [address] Lexi Farnsworth, MANGLE OPERATOR GARMENTS [address] [place] [address] 04/06/2024 8:00 AM CDT Virtual Visit [facility] [address] [place] [address] Mattei Tellez APRN WILDLIFE BIOLOGIST 500 [place] [address] documented as of this encounter Visit Diagnoses Not on filedocumented in this encounter Additional Health Concerns Assessment Noted Time PHQ-9 Depression Total Score: 4 12/11/19 23 7:53 AM CDT documented as of this encounter Care Teams Well Driller Relationship Specialty Start Date End Date Shannan Malcolm CNP [address] [place] [address] PCP - General Nurse Practitioner - Family 07/09/22 Shannan Malcolm CNP [address] [place] [address] Assigned PCP 04/07/22 Mattie Tellez APRN WILDLIFE BIOLOGIST [address] [place], [place] [address] Assigned Behavioral Health Provider 09/22/22 documented as of this encounter
--- OUTSIDE RECORDS SUMMARY | 2024-04-05 07:31 | XMS_ITS | Encounter Summary ---
Author Organization [place] Address [address] [place] [address] Care Team Providers Care Hotel Maintenance Worker Name Role Phone Shannan Malcolm CNP Unavailable [phone] Shannan Malcolm CNP Primary Care Provider + [phone] Mattie Tellez APRN CELL STRIPPER Unavailable [phone] Reason for Visit * Reason Onset Date Comments Telephone 03/08/2023 Jason Rosales Encounter Details Date Type Department Care Team (Late st Contact Info) Description 03/08/2023 [facility] [address] [place] [address] [address] [place] [address] Mattie Tellez APRN CELL STRIPPER 500 [place] [address] Telephone (Jason Rosales) Social History [...] on file Legal Sex Female 3:13 AM CREDIT CONTROL CLERK Gender Identity Female 02/08/2022 7:17 AM CDT Sexual Orientation Choose not to disclose 2021 7:17 AM CDT documented as of this encounter Miscellaneous Notes * Telephone Encounter - Mariann Maloney RN - 03/11/2023 12:41 PM CDT RN reviewed that there are incomplete forms located in [employer] from [employer] with a date of 02/23/23. One has [...] 04/06/2024 7:30 AM CDT Virtual Visit [facility] Mental Health & Addiction [facility] [address] [place] [address] Lexi Farnsworth, TORCH OPERATOR [address] [place], [place] [address] 04/06/2024 8:00 AM CDT Virtual Visit [facility] Mental Health & [facility] [address] [place] [address] 400 [place] [address] Mattie Tellez APRN CELL STRIPPER [address] [place] [address] documented as of this encounter Visit Diagnoses Not on filedocumented in this encounter Additional Health Concerns Assessment Noted Time PHQ-9 Depression Total Score: 4 12/11/19 23 7:53 AM CDT documented as of this encounter Care Teams Hotel Maintenance Worker Relationship Specialty Start Date End Date Shannan Malcolm CNP [address] [place] [address] PCP - General Nurse Practitioner - Family 07/09/22 Shannan Malcolm CNP [address] [place] [address] Assigned PCP 04/07/22 Mattie Tellez APRN CNP [address] [place] [address] [id number] Assigned Behavioral Health Provider 09/22/22 documented as of this encounter
--- OUTSIDE RECORDS SUMMARY | 2024-04-05 07:31 | XMS_ITS | Encounter Summary ---
Author Organization [place] Address [address] [place] [address] Care Team Providers Care Dealmaker Name Role Phone Shannan Malcolm CNP Unavailable [phone] Shannan Malcolm CNP Primary Care Provider + [phone] Mattie Tellez APRN CAP LINING MACHINE OPERATOR Unavailable [phone] Reason for Visit * Reason Onset Date Comments SIDE EFFECTS 01/21/2023 Grinding and isaiah nching jaw Encounter Details Date Type Department Care Team (Late st Contact Info) Description 01/21/2023 [facility] [address] [address] [place] [address] Mattie Tellez APRN CAP LINING MACHINE OPERATOR 500 [place] [address] SIDE EFFECTS (Grinding and clenching [...] on file Legal Sex Female 3:13 AM DYNAMIC ETCHING PROCESSOR Gender Identity Female 02/08/2022 7:17 AM CDT [...] Description 04/06/2024 7:30 AM CDT [facility] [address] [place] [address] [address] [place] [address] Lexi Farnsworth, UMBRELLA MENDER [address] [place], [place] [address] 04/06/2024 8:00 AM CDT Virtual Visit [facility] [address] 400 [place] [address] Mattie Tellez APRN [facility] 500 [place], [place] [address] documented as of this encounter Visit Diagnoses Not on filedocumented in this encounter Additional Health Concerns Assessment Noted Time PHQ-9 Depression Total Score: 4 12/11/19 23 7:53 AM CDT documented as of this encounter Care Teams Dealmaker Relationship Specialty Start Date End Date Shannan Malcolm CNP [address] [place] [address] PCP - General Nurse Practitioner - Family 07/09/22 Shannan Malcolm CNP [address] [place] [address] 967012 Assigned PCP 04/07/22 Mattie Tellez APRN CAP LINING MACHINE OPERATOR [address] [place] [address] Assigned Behavioral Health Provider 09/22/22 documented as of this encounter
--- OUTSIDE RECORDS SUMMARY | 2024-04-05 07:31 | XMS_ITS | Encounter Summary ---
Author Organization [place] Address [address] [place] [address] Care Team Providers Care Armored Cable Machine Operator Name Role Phone Shannan Malcolm CNP Unavailable [phone] Shannan Malcolm CNP Primary Care Provider + [phone] Mattie Tellez APRN LINEN CONTROLLER Unavailable [phone] Reason for Visit * Reason Onset Date Comments Forms 12/21/2022 Encounter Details Date Type Department Care Team (Late st Contact Info) Description 12/21/2022 Telephone [facility] Mental Health & [facility] [address] [place] [address] Mattie Tellez, ROSEMARIE LINEN CONTROLLER [address] [place], [place] [address] Forms Social History Tobacco Use Types Packs/Day [...] on file 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 Please intial and date next to that question and fax back. Fax is listed at the top of the form. Phone number to reach patient: Other phone number: [employer]#: [phone]* Best Time: andrew Can we leave a detailed message on this number? YES Travel screening: Not Applicable documented in this encounter Plan of Treatment Upcoming Encounters Date Type Department Care Team (Late st Contact Info) Description 04/06/2024 7:30 AM CDT Virtual Visit [facility] [address] [place] [address] 400 [place] [address] Lexi Farnsworth LICSW [address] [facility] 200 [place], [place] [address] 04/06/2024 8:00 AM CDT Virtual Visit [facility] [address] [address] [place] [address] Mattie Tellez APRN LINEN CONTROLLER [address] [place], [place] [address] documented as of this encounter Visit Diagnoses Not on filedocumented in this encounter Additional Health Concerns Assessment Noted Time PHQ-9 Depression Total Score: 4 12/11/19 23 7:53 AM CDT documented as of this encounter Care Teams Armored Cable Machine Operator Relationship Specialty Start Date End Date Shannan Malcolm, [place] [address] [place] [address] PCP - General Nurse Practitioner - Family 07/09/22 Shannan Malcolm CNP [address] [place] [address] 622252 Assigned PCP 04/07/22 Mattie Tellez APRN CNP [address] [place] [address] Assigned Behavioral Health Provider 09/22/22 documented as of this encounter
--- OUTSIDE RECORDS SUMMARY | 2024-04-05 07:31 | XMS_ITS | Encounter Summary ---
Author Organization [place] Address [address] [place] [address] Care Team Providers Care Literacy Coach Name Role Phone Shannan Malcolm CNP Unavailable [phone] Shannan Malcolm CNP Primary Care Provider + [phone] Mattie Tellez APRN PATIENT ACCOUNTS SPECIALIST Unavailable [phone] Reason for Visit * Reason Onset Date Comments Refill Request 12/31/2022 Encounter Details Date Type Department Care Team (Late st Contact Info) Description 12/31/2022 MyC Refill [facility] Mental Health & [facility] [address] [place] [address] Mattie Tellez, ROSEMARIE PATIENT ACCOUNTS SPECIALIST 500 [place] [address] Refill Request Social History Tobacco [...] on file Legal Sex Female 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 PHONE COUNSELOR Gender Identity Female 02/08/2022 7:17 AM CDT Sexual Orientation Choose not to disclose 2021 7:17 AM CDT documented as of this encounter Plan of Treatment Upcoming Encounters Date Type Department Care Team (Late st Contact Info) Description 04/06/2024 7:30 AM CDT Virtual Visit [facility] Mental Health & Addiction [facility] [address] [place] [address] Lexi Farnswotrh, [facility] [address] [place], [place] [address] 04/06/2024 8:00 AM CDT Virtual Visit [facility] Mental Health & Addiction [facility] [address] [place] [address] Mattie Tellez APRN PATIENT ACCOUNTS SPECIALIST 500 [place], [place] [address] documented as of this encounter Visit Diagnoses Diagnosis CATHY (generalized anxiety disorder) Generalized anxiety disorder documented in this encounter Additional Health Concerns Assessment Noted Time PHQ-9 Depression Total Score: 4 12/11/19 7:53 AM CDT documented as of this encounter Care Teams Literacy Coach Relationship Specialty Start Date End Date Shannan Malcolm CNP [address] [place] [address] PCP - General Nurse Practitioner - Family 07/09/22 Shannan Malcolm CNP [address] [place] [address] Assigned PCP 04/07/22 Mattie Tellez APRN PATIENT ACCOUNTS SPECIALIST [address] [place] [address] Assigned Behavioral Health Provider 09/22/22 documented as of this encounter
--- OUTSIDE RECORDS SUMMARY | 2024-04-05 07:31 | XMS_ITS | Encounter Summary ---
Author Organization [place] Address [facility] [place] [address] Care Team Providers Care Medical Office Professional Instructor Name Role Phone Shannan Malcolm CNP Unavailable [phone] Shannan Malcolm CNP Primary Care Provider + [phone] Mattie Tellez APRN ASSISTANT CUSTOMER SERVICE MANAGER Unavailable [phone] Encounter Details Date Type Department Care Team (Late st Contact Info) Description 01/10/2024 Orders Only [facility] Health & [facility] [address] [place] [address] Mattie Tellez APRN ASSISTANT CUSTOMER SERVICE MANAGER 500 [facility] [place], [place] [address] CATHY (generalized anxiety disorder) Social History Tobacco [...] on file Legal 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 Female 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 Gender Identity Female 02/08/2022 7:17 AM CDT Sexual Orientation Choose not to disclose 2021 7:17 AM CDT documented as of this encounter Plan of Treatment Upcoming Encounters Date Type Department Care Team (Late st Contact Info) Description 04/06/2024 7:30 AM CDT Virtual Visit [facility] [address] [place] [address] Lexi Farnsworth, [facility] [address] [place], [place] [address] 04/06/2024 8:00 AM CDT Virtual Visit [facility] [address] [place] [address] Mattie Tellez APRN ASSISTANT CUSTOMER SERVICE MANAGER 500 [place], [place] [address] documented as of this encounter Visit Diagnoses Diagnosis CATHY (generalized anxiety disorder) Generalized anxiety disorder documented in this encounter Additional Health Concerns Assessment Noted Time PHQ-9 Depression Total Score: 6 01/01/20 24 10:48 AM CDT documented as of this encounter Care Teams Medical Office Professional Instructor Relationship Specialty Start Date End Date Shannan Malcolm CNP [address] [place] [address] PCP - General Nurse Practitioner - Family 07/09/22 Shannan Malcolm CNP [address] [place] [address] Assigned PCP 04/07/22 Mattie Tellez APRN ASSISTANT CUSTOMER SERVICE MANAGER 500 [place], [place] [address] Assigned Behavioral Health Provider 09/22/22 documented as of this encounter
--- OUTSIDE RECORDS SUMMARY | 2024-04-05 07:31 | XMS_ITS | Encounter Summary ---
Author Organization [place] Address [facility] [place] [address] Care Team Providers Care Satellite Specialist Name Role Phone Shannan Malcolm CNP Unavailable [phone] Shannan Malcolm CNP Primary Care Provider + [phone] Mattie Tellez APRN LEAD CASE MANAGER Unavailable [phone] Encounter Details Date Type Department Care Team (Late st Contact Info) Description 09/27/2023 [facility] Medical Advice [facility] Mental Health & Addiction [facility] [address] [address] [place] [address] Mattie Tellez APRN LEAD CASE MANAGER 500 [facility] [address] [place], [place] [address] Social History Tobacco Use Types Packs/Day Years [...] on file Legal 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 [address] [place] [address] Lexi Farnsworth, ANDREI [address] [place] [address] 04/06/2024 8:00 AM CDT Virtual Visit [facility] Mental Health & Addiction [facility] [address] [place] [address] 400 [place] [address] Mattie Tellez APRN LEAD CASE MANAGER 500 [place], [place] [address] documented as of this encounter Visit Diagnoses Not on filedocumented in this encounter Additional Health Concerns Assessment Noted Time PHQ-9 Depression Total Score: 4 12/11/19 23 7:53 AM CDT documented as of this encounter Care Teams Satellite Specialist Relationship Specialty Start Date End Date Shannan Malcolm CNP [address] [place] [address] [phone] PCP - General Nurse Practitioner - Family 07/09/22 Shannan Malcolm CNP [address] [place] [address]352 Assigned PCP 04/07/22 Mattie Tellez APRN LEAD CASE MANAGER 500 [place] [address] Assigned Behavioral Health Provider 09/22/22 documented as of this encounter
--- OUTSIDE RECORDS SUMMARY | 2024-04-05 07:31 | XMS_ITS | Encounter Summary ---
Author Organization [place] Address [address] [place] [address] Care Team Providers Care Brake Drum Lathe Operator Name Role Phone Shannan Malcolm CNP Unavailable [phone] Shannan Malcolm CNP Primary Care Provider + [phone] Mattie Tellez APRN BIOFUELS MANAGER Unavailable [phone] Reason for Visit * Reason Onset Date Comments Medication Request 12/01/2023 Increase dexm ethylphenidate (FOCALIN XR) Encounter Details Date Type Department Care Team (Late st Contact Info) Description 12/01/2023 MyC Medical Advice [facility] Mental Health & [facility] [address] [place] [address] [address] [place] [address] Mattie Tellez APRN BIOFUELS MANAGER 500 [place] [address] Medication Request (Increase dexmethylphen... 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 WEB DEVELOPER Gender Identity Female 02/08/2022 7:17 AM CDT [...] Description 04/06/2024 7:30 AM CDT Virtual Visit [facility] Mental Health & Addiction [facility] [address] [place] [address] [address] [place] [address] Lexi Farnsworth, PATIENT ADMITTING REPRESENTATIVE [address] [place] [address] 04/06/2024 8:00 AM CDT Virtual Visit [facility] Mental Health & Addiction [facility] [address] [address] [place] [address] Mattie Tellez APRN BIOFUELS MANAGER 500 [place] [address] documented as of this encounter Visit Diagnoses Not on filedocumented in this encounter Additional Health Concerns Assessment Noted Time PHQ-9 Depression Total Score: 4 12/11/19 23 7:53 AM CDT documented as of this encounter Care Teams Brake Drum Lathe Operator Relationship Specialty Start Date End Date Shannan Malcolm CNP [facility] [place] [address] PCP - General Nurse Practitioner - Family 07/09/22 Shannan Malcolm CNP [address] [place] [address] Assigned PCP 04/07/22 Mattie Tellez APRN CNP [address] [place] [address] Assigned Behavioral Health Provider 09/22/22 documented as of this encounter
--- OUTSIDE RECORDS SUMMARY | 2024-04-05 07:31 | XMS_ITS | Encounter Summary ---
Author Organization [facility] Address [address] [place] [address] Care Team Providers Care Silk Screen Cutter Name Role Phone Shannan Malcolm CNP Unavailable [phone] Shannan Malcolm CNP Primary Care Provider + [phone] Mattie Tellez APRN GUIDANCE CONSULTANT Unavailable [phone] Encounter Details Date Type Department Care Team ([facility] st Contact Info) Description 05/27/[address] [facility] Health & [facility] [address] [place] [address] Mattie Tellez APRN GUIDANCE CONSULTANT [address] [place], [place] [address] Social History Tobacco Use Types Packs/Day Years [...] on file Legal Sex Female 3:13 AM MELTING FURNACE SKIMMER Gender Identity Female 02/08/2022 7:17 AM CDT Sexual Orientation Choose not to disclose 2021 7:17 AM CDT documented as of this encounter Miscellaneous Notes * Telephone Encounter - Yolanda Ahn RN - 05/27/2023 2:14 PM MELTING FURNACE SKIMMER Called and explained to the patient that [...] Ahn RN on 05/27/2023 at 2:15 PM ING FURNACE SKIMMER * Telephone Encounter - Jane Jordan DO - 05/27/2023 1:01 PM CST Could RN please inform pt that there is a shortage of all stimulant medication used to treat ADHD. I am not comfortable switching her to something different but I am happy to send the Rx to a different pharmacy if pt would like. ING FURNACE SKIMMER * Telephone Encounter - Yolanda Ahn RN - 05/27/2023 12:30 PM MELTING FURNACE SKIMMER Patient has been out of Concerta 36 [...] Ahn RN on 05/27/2023 at 12:32 PM ING FURNACE SKIMMER * Telephone Encounter - Chantel Kilpatrick - 05/27/2023 11:46 AM CST Reason for call: Medication If this is a refill request, has the caller requested the refill from the pharmacy already? Yes Will the patient be using a [facility]? Doctor Phillips of the pharmacy and phone number for the current request: [facility] [phone] Name of the medication requested: Concerta Other request: Concerta will not be manufactured until June and wants to see about switching to something similar so it can be filled. Patient has been out for 2.5 weeks. Wants to slat pickler in [place] is possible. Patient has requested a refill from their pharmacies listed and the pharmacies have nothing in their supply to refill it with. Pt understanded there is a national shortage Phone number to reach patient: Home number on file [phone] (home) Best Time: Any Can we leave a detailed message on this number? YES Travel screening: Not Applicable ING FURNACE SKIMMER documented in this encounter Plan of Treatment Upcoming Encounters Date Type Department Care Team (Late st Contact Info) Description 04/06/2024 7:30 AM CDT Virtual Visit [facility] Mental Health & Addiction [facility] [address] [place] [address] [address] [place] [address] Lexi Farnsworth, UNDER CUTTING MACHINE OPERATOR [address] [place] [address] 04/06/2024 8:00 AM CDT Virtual Visit [facility] Mental Health & [facility] [address] [address] [place] [phone] Mattie Tellez APRN GUIDANCE CONSULTANT [address] [place], [place] [address] documented as of this encounter Visit Diagnoses Not on filedocumented in this encounter Additional Health Concerns Assessment Noted Time PHQ-9 Depression Total Score: 4 12/11/19 23 7:53 AM CDT documented as of this encounter Care Teams Silk Screen Cutter Relationship Specialty Start Date End Date Shannan Malcolm CNP [facility] [place] [address] PCP - General Nurse Practitioner - Family 07/09/22 Shannan Malcolm CNP [address] [place] [address] Assigned PCP 04/07/22 Mattie Tellez APRN CNP [address] [place] [address] Assigned Behavioral Health Provider 09/22/22 documented as of this encounter
--- OUTSIDE RECORDS SUMMARY | 2024-04-05 07:31 | XMS_ITS | Encounter Summary ---
Author Organization [facility] Address [facility] [place] [address] Care Team Providers Care Mail Carrier And Clerk Name Role Phone Shannan Malcolm CNP Unavailable [phone] Shannan Malcolm CNP Primary Care Provider + [phone] Mattie Tellez APRN WELDER PRODUCTION LINE GAS Unavailable [phone] Encounter Details Date Type Department Care Team (Late st Contact Info) Description 10/10/2023 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 Mental Health & Addiction [facility] [address] [place] [address] Lexi Farnsworth, CUTTER OPERATOR HELPER [address] [place] [address] 04/06/2024 8:00 AM CDT Virtual Visit [facility] Mental Health & Addiction [facility] [address] [place] [address] Mattie Tellez APRN WELDER PRODUCTION LINE GAS [address] [place] [address] documented as of this encounter Visit Diagnoses Not on filedocumented in this encounter Additional Health Concerns Assessment Noted Time PHQ-9 Depression Total Score: 4 12/11/19 23 7:53 AM CDT documented as of this encounter Care Teams Mail Carrier And Clerk Relationship Specialty Start Date End Date Shannan Malcolm CNP [address] [place] [address] PCP - General Nurse Practitioner - Family 07/09/22 Shannan Malcolm CNP [address] [place] [address] Assigned PCP 04/07/22 Mattie Tellez APRN WELDER PRODUCTION LINE GAS [address] [place], [place] [address] Assigned Behavioral Health Provider 09/22/22 documented as of this encounter
--- OUTSIDE RECORDS SUMMARY | 2024-04-05 07:31 | XMS_ITS | Encounter Summary ---
Author Organization [facility] Address [address] [place] [address] Care Team Providers Care Tipple Worker Name Role Phone Shannan Malcolm CNP Unavailable [phone] Shannan Malcolm CNP Primary Care Provider + [phone] Mattie Tellez APRN JUNIOR DATA ANALYST Unavailable [phone] Reason for Visit * Reason Onset Date Comments Medication not working 01/10/2024 Diazepam Encounter Details Date Type Department Care Team (Late st Contact Info) Description 01/10/2024 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 Yes Name of the pharmacy and phone number for the current request: N/A Name of the medication requested: Ativan Other request: Pt is requesting to be switch back to previous medication Can we leave a detailed message on this number? YES Phone number patient can be reached at: Home number on file [phone] (home) Best Time: Anytime Call taken on 01/10/2024 at 2:34 PM by Josafat Rose * Telephone Encounter - Nadira Ramos RN - 01/10/2024 2:33 PM CDT 1) Reviewed patient's YASSSU message. She reports that diazepam is not working and wants to go back to Ativan or Clonazepam. Impression: Skylar Snatillan is a 38 year old female who [...] [facility] [address] [place] [address] [address] [place] [address] Lexi Farnsworth, GLASS EDGER [address] [place] [address] 04/06/2024 8:00 AM CDT Virtual Visit [facility] Mental Health & Addiction [facility] [address] [address] [place] [phone] Mattie Tellez, [place]AR[place] JUNIOR DATA ANALYST [address] [place] [address] documented as of this encounter Visit Diagnoses Not on filedocumented in this encounter Additional Health Concerns Assessment Noted Time PHQ-9 Depression Total Score: 6 01/01/20 24 10:48 AM CDT documented as of this encounter Care Teams Tipple Worker Relationship Specialty Start Date End Date Shannan Malcolm CNP [address] [place] [address] PCP - General Nurse Practitioner - Family 07/09/22 Shannan Malcolm CNP [address] [place] [address] [id number] Assigned PCP 04/07/22 Mattie Tellez APRN CNP 500 [place] [address] Assigned Behavioral Health Provider 09/22/22 documented as of this encounter
--- OUTSIDE RECORDS SUMMARY | 2024-04-05 07:31 | XMS_ITS | Encounter Summary ---
Author Organization [facility] Address [address] [place] [address] Care Team Providers Care Therapy Teacher Name Role Phone Shannan Malcolm CNP Unavailable [phone] Nabeel Nolan MD Unavailable Shannan Malcolm LAMP CLEANER STRE[address] LIGHT Primary Care Provider [phone] Mattie Tellez APRN LAMP CLEAN[address] LIGHT Unavailable Reason for Visit * Reason Onset Date Comments MyChart Communication 09/19/2022 Encounter Details Date Type Department Care Team (Late st Contact Info) Description 09/19/2022 [facility] Medical Advice [address] [address] Shannan Malcolm, LAMP CLEANER STRE[address] LIGHT [address] [place] [address] MyChart Communication Social History Tobacco Use [...] on file Legal Sex Female 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 ARCHITECTURAL DESIGNER Gender Identity Female 02/08/2022 7:17 AM [...] Thank you Maria Antonia Vázquez RN, BSN [place] Triage documented in this encounter Plan of Treatment Upcoming Encounters Date Type Department Care Team ([facility] st Contact Info) Description 04/06/2024 7:30 AM CDT Virtual Visit [facility] Mental Health & Addiction [facility] [address] [place] [address] Lexi Farnsworth, [facility] [address] [place], [place] [address] 04/06/2024 8:00 AM CDT Virtual Visit [facility] Mental Health & Addiction [facility] [address] [place] [address] Mattie Tellez APRN [address]AMP CLE[address] LIGHT 500 [place], [place] [address] documented as of this encounter Visit Diagnoses Not on filedocumented in this encounter Additional Health Concerns Assessment Noted Time PHQ-9 Depression Total Score: 25 023 7:10 AM CDT documented as of this encounter Care Teams Therapy Teacher Relationship Specialty Start Date End Date Shannan Malcolm CNP [address] [place] [address] PCP - General Nurse Practitioner - Family 07/09/22 Shannan Malcolm, GROVER [address] [place], [place] [address] Assigned PCP 04/07/22 Nabeel Nolan MD [address] [phone] Assigned Behavioral Health Provider 06/02/22 09/21/22 Mattie Tellez APRN [address] LIGHT [address] [place], [place] [address] Assigned Behavioral Health Provider 09/22/22 documented as of this encounter
--- OUTSIDE RECORDS SUMMARY | 2024-04-05 07:31 | XMS_ITS | Encounter Summary ---
Author Organization [facility] Address [address] [place] [address]. [place] [address] Care Team Providers Care Bottom Loader Name Role Phone Shannan Malcolm CNP Unavailable [phone] Shannan Malcolm CNP Primary Care Provider [phone] Mattie Tellez APRN DENTURES LAB TECHNICIAN Unavailable [phone] Encounter Details Date Type Department Care Team (Late st Contact Info) Description 02/23/2023 [facility] [place] [facility] Mental Health & [facility] [address] [address] [place] [address] Mattie Tellez APRN DENTURES LAB TECHNICIAN 500 [facility] [address] [place], [place] [address] Social History Tobacco Use Types Packs/Day Years [...] on file Legal Sex Female 3:13 AM HOG COUNTER Gender Identity Female 02/08/2022 7:17 AM CDT [...] [facility] Mental Health & Addiction [facility] [address] [place] [address] 400 [place] [address] Lexi Farnsworth, [facility] [address] [place], [place] [address] 04/06/2024 8:00 AM CDT Virtual Visit [facility] Mental Health & Addiction [facility] [address] [address] [place] [address] Mattie Tellez APRN DENTURES LAB TECHNICIAN 500 [place], [place] [address] documented as of this encounter Visit Diagnoses Not on filedocumented in this encounter Additional Health Concerns Assessment Noted Time PHQ-9 Depression Total Score: 4 12/11/19 23 7:53 AM CDT documented as of this encounter Care Teams Bottom Loader Relationship Specialty Start Date End Date Shannan Malcolm CNP [address] [place] [id number] PCP - General Nurse Practitioner - Family 07/09/22 Shannan Malcolm CNP [address] [place] [address] Assigned PCP 04/07/22 Mattie Tellez APRN CNP 500 [place] [address] Assigned Behavioral Health Provider 09/22/22 documented as of this encounter
--- OUTSIDE RECORDS SUMMARY | 2024-04-05 07:32 | XMS_ITS | Encounter Summary ---
Author Organization [facility] Address [address] [place] [address] Care Team Providers Care Field Sales Agent Name Role Phone Shannan Malcolm CNP Unavailable [phone] Nabeel Nolan MD Unavailable [phone] Shannan Malcolm CNP Primary Care Provider + [phone] Mattie Tellez APRN LEAD INSTRUCTOR/FLIGHT ATTENDANT Unavailable [phone] Encounter Details Date Type Department Care Team (Late st Contact Info) Description 08/11/[address] [facility] [address], [address] [place] [address] Fadumo Doe Social History Tobacco [...] on file Legal Sex Female 3:13 AM COMMERCIAL FRONT LOAD OPERATOR Gender Identity Female 02/08/2022 7:17 AM CDT Sexual Orientation Choose not to disclose 2021 7:17 AM CDT COVID-19 Exposure Response Date Recorded In the last 10 days, have yo u been in contact with someone who was confirmed or suspected to have Coronavirus/COVID-19? Yes 07/16/2022 4:46 PM COMMERCIAL FRONT LOAD OPERATOR documented as of this encounter Miscellaneous Notes * Telephone Encounter - Leo Franco - 08/11/2022 12:34 PM CST Reached out to patient to schedule New Seizure, phone number in chart no longer valid. Unable to leave message. ERCIAL FRONT LOAD OPERATOR documented in this encounter Plan of Treatment Upcoming Encounters Date Type Department Care Team (Late st Contact Info) Description 04/06/2024 7:30 AM CDT Virtual Visit [facility] Mental Health & Addiction [facility] [address] [place] [address] 400 [place] [address] Lexi Farnsworth, APPLICATION HELPER [address] [place], [place] [address] 04/06/2024 8:00 AM CDT Virtual Visit [facility] Mental Health & Addiction [facility] [address] [address] [place] [address] Mattie Tellez APRN LEAD INSTRUCTOR/FLIGHT ATTENDANT 500 [place], [place] [address] documented as of this encounter Visit Diagnoses Not on filedocumented in this encounter Additional Health Concerns Assessment Noted Time PHQ-9 Depression Total Score: 16 023 7:10 AM CDT documented as of this encounter Care Teams Field Sales Agent Relationship Specialty Start Date End Date Sahnnan Malcolm CNP [address] [place] [address] PCP - General Nurse Practitioner - Family 07/09/22 Shannan Malcolm CNP [address] [place] [address] Assigned PCP 04/07/22 Nabeel Nolan MD [facility] [address] [address] Assigned Behavioral Health Provider 06/02/22 09/21/22 Mattie Tellez APRN [facility] 500 [place] [address] Assigned Behavioral Health Provider 09/22/22 documented as of this encounter
--- OUTSIDE RECORDS SUMMARY | 2024-04-05 07:32 | XMS_ITS | Encounter Summary ---
Author Organization [facility] Address [address] [place] [address] Care Team Providers Care Acute Dialysis Nurse Name Role Phone Anni Nair PA-C Primary Care Provider [phone] Shannan Malcolm GRINDING AND POLISHING LABORER Unavailable [phone] Nabeel Nolan MD Unavailable [phone] Shannan Malcolm CNP Primary Care Provider Mattie Tellez APRN GRINDING AND POLISHING LABORER Unavailable [phone] Encounter Details Date Type Department Care Team (Late st Contact Info) Description 03/30/2022 [facility] Medical Advice [address] [place] [address] Shannan Malcolm, GRINDING AND POLISHING LABORER [address] [place] [address] Social History Tobacco Use Types Packs/Day [...] on file Legal Sex Female 3:13 AM CASING WORKER Gender Identity Female 02/08/2022 7:17 AM [...] Visit [facility] [address] [place] [address] [address] [place] [address] Lexi Farnsworth LICSW [address] [place], [place] [address] 04/06/2024 8:00 AM CDT Virtual Visit [facility] [address] [place] [address] [address] [place] [address] Mattie Tellez, CURRICULUM AND ASSESSMENT COORDINATOR GRINDING AND POLISHING LABORER 500 [place], [place] [address] documented as of this encounter Visit Diagnoses Not on filedocumented in this encounter Additional Health Concerns Infection Onset Date Last Indicated Resolved Time Rule Out COVID-19 03/09/2022 03/09/2022 03/30/2022 11:39 PM CDT Assessment Noted Time PHQ-9 Depression Total Score: 14 022 10:11 AM CDT documented as of this encounter Care Teams Acute Dialysis Nurse Relationship Specialty Start Date End Date Anni Nair PA-C PCP - General Physician Green Meat Packer 10/01/17 07/08/22 Shannan Malcolm, GROVER [address] [place] [address] PCP - General Nurse Practitioner - Family 07/09/22 Shannan Malcolm CNP [address] [place] [address] Assigned PCP 04/07/22 Nabeel Nolan MD [address] [place] [address] [id number] Assigned Behavioral Health Provider 06/02/22 09/21/22 Mattie Tellez APRN GRINDING AND POLISHING LABORER 500 [place], [place] [address] Assigned Behavioral Health Provider 09/22/22 documented as of this encounter
--- OUTSIDE RECORDS SUMMARY | 2024-04-05 07:32 | XMS_ITS | Encounter Summary ---
Author Organization [facility] Address [address] [place] [address] Care Team Providers Care Branch Administrator Name Role Phone Azra Samano APRN, CNP Primary Care Provider Unavailable [facility] Primary Care Provider Anni Nair-C Primary Care Provider Anni Nair-C Unavailable [phone] Anni Nair-C Unavailable [phone] Lesli Ham-C Unavailable Rd Arellano DO Unavailable Anni Nair-C Unavailable [phone] Shannan Malcolm CNP Unavailable [phone] Shannan Malcolm CNP Unavailable [phone] Nabeel Nolan MD Unavailable [phone] Shannan Malcolm CNP Primary Care Provider Mattie Tellez APRN REAL ESTATE ADMINISTRATOR Unavailable [phone] Reason for Visit * Reason Onset Date Comments Outreach 07/27/2015 [facility] att 1 Encounter Details Date Type Department Care Team (Late st Contact Info) Description 07/27/[address] [address] Azra Samano APRN REAL ESTATE ADMINISTRATOR NO INFO AVAILABLE 08/06/2022 Outreach ([facility] att [...] on file Legal Sex Female 3:13 AM PAEDIATRIC THORACIC PHYSICIAN Gender Identity Female 02/08/2022 7:17 AM CDT Sexual Orientation Choose not to disclose 2021 7:17 AM CDT documented as of this encounter Miscellaneous Notes * Telephone Encounter - Michael Benoit - 07/27/2015 5:54 PM CST 07/27/15 Call Regarding Preventive Health Screening Cervical/PAP Attempt 1 Message on male Comments: Outreach Pipeliner cnt IATRIC THORACIC PHYSICIAN documented in this encounter Plan of Treatment Upcoming Encounters Date Type Department Care Team (Late st Contact Info) Description 04/06/2024 7:30 AM CDT Virtual Visit [facility] Mental Health & Addiction [facility] [address] [place] [address] [address] [place] [address] Lexi Farnsworth, SUPERVISOR LOGGING [address] [facility] [address] [place], [place] [address] 04/06/2024 8:00 AM CDT Virtual Visit [facility] Mental Health & Addiction [facility] [address] [address] [place] [address] Mattie Tellez APRN REAL ESTATE ADMINISTRATOR 500 [place], [place] [address] documented as of this encounter Visit Diagnoses Not on filedocumented in this encounter Additional Health Concerns Infection Onset Date Last Indicated Resolved Time Rule Out COVID-19 03/09/2022 03/09/2022 03/30/2022 11:39 PM CDT Assessment Noted Time PHQ-9 Depression Total Score: 14 01/12/2 016 8:04 AM PAEDIATRIC THORACIC PHYSICIAN documented as of this encounter Care Teams Branch Administrator Relationship Specialty Start Date End Date Azra Samano APRN REAL ESTATE ADMINISTRATOR PCP - General Nurse Practitioner 01/20/14 11/08/[address] [address] PCP - General 11/09/15 09/30/17 Anni Nair PA-C [address] [place] [address] PCP - General Physician Electronics Mechanic 10/01/17 07/08/22 Anni Nair PA-C [address] [place] [address] PCP - Assigned PCP 12/09/16 08/12/18 Shannan Malcolm CNP [address] [place] [address] PCP - General Nurse Practitioner - Family 07/09/22 Anni Nair PA-C [address] [place] [address] Assigned PCP 12/09/16 11/29/18 Lesli Ham PA-C [address] [place] [address] Assigned PCP 11/30/18 12/06/18 Rd Arellano DO [address] [place] [address] Assigned PCP 12/07/18 04/23/20 Anni Nair PA-C [address] [facility] [place] [address] Assigned PCP 04/24/20 10/15/20 Shannan Malcolm, GROVER [address] [place] [address] [id number] Assigned PCP 02/24/22 03/16/22 Shannan Malcolm, GROVER [address] [place] [address] [id number] Assigned PCP 04/07/22 Nabeel Nolan MD [address] [place] [address] [phone] Assigned Behavioral Health Provider 06/02/22 09/21/22 Mattie Tellez APRN REAL ESTATE ADMINISTRATOR 500 [place] [address] Assigned Behavioral Health Provider 09/22/22 documented as of this encounter
--- OUTSIDE RECORDS SUMMARY | 2024-04-05 07:32 | XMS_ITS | Encounter Summary ---
Author Organization [place] Address [address] [place] [address] Care Team Providers Care Balloon Seller Name Role Phone Anni Nair PA-C Primary Care Provider [phone] Shannan Malcolm MILL RECORDER Unavailable [phone] Nabeel Nolan MD Unavailable [phone] Shannan Malcolm CNP Primary Care Provider [phone] Mattie Tellez APRN MILL RECORDER Unavailable [phone] Encounter Details Date Type Department Care Team (Late st Contact Info) Description 07/05/2022 MyC Medical Advice [facility] [address] [place] [address] Anni Nair PA-C [address] [facility] [place] [address] Social History Tobacco Use Types Packs/Day [...] on file Legal Sex Female 3:13 AM BAKERY TEAM MEMBER Gender Identity Female 02/08/2022 7:17 AM CDT Sexual Orientation Choose not to disclose 2021 7:17 AM CDT documented as of this encounter Plan of Treatment Upcoming Encounters Date Type Department Care Team (Late st Contact Info) Description 04/06/2024 7:30 AM CDT Virtual Visit [facility] [address] [place] [address] Lexi Farnsworth, WAITER/WAITRESS TOURIST CLASS [address] [place], [place] [address] 04/06/2024 8:00 AM CDT Virtual Visit [facility] [address] [place] [address] Mattie Tellez APRN [facility] 500 [place], [place] [address] documented as of this encounter Visit Diagnoses Not on filedocumented in this encounter Additional Health Concerns Assessment Noted Time PHQ-9 Depression Total Score: 16 022 9:07 AM BAKERY TEAM MEMBER documented as of this encounter Care Teams Balloon Seller Relationship Specialty Start Date End Date Anni Nair PA-C PCP - General Physician Photography Editor 10/01/17 07/08/22 Shannan Malcolm CNP [address] [place] [address] 414442 PCP - General Nurse Practitioner - Family 07/09/22 Shannan Malcolm CNP [address] [place] [address] 138102 Assigned PCP 04/07/22 Nabeel Nolan MD [address] [place] [address] 250 [place] [address] Assigned Behavioral Health Provider 06/02/22 09/21/22 Mattie Tellez APRN MILL RECORDER 500 [place] [address] Assigned Behavioral Health Provider 09/22/22 documented as of this encounter
--- OUTSIDE RECORDS SUMMARY | 2024-04-05 07:32 | XMS_ITS | Encounter Summary ---
Author Organization [place] Address [address] [place] [address] Care Team Providers Care Agronomy Teacher Name Role Phone Shannan Malcolm CNP Unavailable [phone] Nabeel Nolan MD Unavailable [phone] Shannan Malcolm CNP Primary Care Provider [phone] Mattie Tellez APRN FLASH RANGING CREWMEMBER Unavailable [phone] Encounter Details Date Type Department Care Team (Late st Contact Info) Description 08/06/2022 MyC Medical Advice [address] [place] [address] Shannan Malcolm, FLASH RANGING CREWMEMBER [address] [place] [address] Social History Tobacco Use Types Packs/Day [...] on file Legal Sex Female 3:13 AM COMMODITIES CLERK Gender Identity Female 02/08/2022 7:17 AM CDT Sexual Orientation Choose not to disclose 2021 7:17 AM CDT COVID-19 Exposure Response Date Recorded In the last 10 days, have yo u been in contact with someone who was confirmed or suspected to have Coronavirus/COVID-19? Yes 07/16/2022 4:46 PM COMMODITIES CLERK documented as of this encounter Plan of Treatment Upcoming Encounters Date Type Department Care Team (Late st Contact Info) Description 04/06/2024 7:30 AM CDT Virtual Visit [facility] Health & Addiction [facility] [address] [place] [address] [address] [place] [address] Lexi Farnsworth, INSTRUCTOR NURSE [address] [facility] 200 [place], [place] [address] 04/06/2024 8:00 AM CDT Virtual Visit [facility] [address] [place] [address] 400 [place] [address] Mattie Tellez APRN [facility] 500 [place] [address] documented as of this encounter Visit Diagnoses Not on filedocumented in this encounter Additional Health Concerns Assessment Noted Time PHQ-9 Depression Total Score: 16 023 7:10 AM CDT documented as of this encounter Care Teams Agronomy Teacher Relationship Specialty Start Date End Date Shannan Malcolm CNP [address] [place] [address] PCP - General Nurse Practitioner - Family 07/09/22 Shannan Malcolm CNP [address] [place] [address] Assigned PCP 04/07/22 Nabeel Nolan MD [facility]5 [facility] 250 [place] [address] Assigned Behavioral Health Provider 06/02/22 09/21/22 Mattie Tellez APRN FLASH RANGING CREWMEMBER 500 [place] [address] Assigned Behavioral Health Provider 09/22/22 documented as of this encounter
--- OUTSIDE RECORDS SUMMARY | 2024-04-05 07:32 | XMS_ITS | Encounter Summary ---
Author Organization [place] Address [address] [place] [address] Care Team Providers Care Tie Loader Name Role Phone Anni Nair PA-C Primary Care Provider [phone] Shannan Malcolm CHAR DUST CLEANER AND SALVAGER Unavailable [phone] Nabeel Nolan MD Unavailable [phone] Shannan Malcolm CNP Primary Care Provider + [phone] Mattie Tellez APRN CHAR DUST CLEANER AND SALVAGER Unavailable [phone] Encounter Details Date Type Department Care Team (Late st Contact Info) Description 07/08/2022 MyC Medical Advice [facility] [address] [place] [address] [place] [address] [place], [place] [id number] Social History Tobacco Use Types Packs/Day Years [...] on file Legal Sex Female 3:13 AM PHYSICIAN IN PRIVATE PRACTICE Gender Identity Female 02/08/2022 7:17 AM CDT Sexual Orientation Choose not to disclose 2021 7:17 AM CDT documented as of this encounter Plan of Treatment Upcoming Encounters Date Type Department Care Team (Late st Contact Info) Description 04/06/2024 7:30 AM CDT Virtual Visit [facility] Mental Health & Addiction [facility] [address] [place] [address] Lexi Farnsworth, CLINICAL DATA MANAGEMENT DIRECTOR [address] [place], [place] [address] 04/06/2024 8:00 AM CDT Virtual Visit [facility] Mental Health & Addiction [facility] [address] [place] [address] Mattie Tellez APRN [facility] 500 [place], [place] [address] documented as of this encounter Visit Diagnoses Not on filedocumented in this encounter Additional Health Concerns Assessment Noted Time PHQ-9 Depression Total Score: 16 022 9:07 AM PHYSICIAN IN PRIVATE PRACTICE documented as of this encounter Care Teams Tie Loader Relationship Specialty Start Date End Date Anni Nair PA-C PCP - General Physician Pharmaceutical Service Representative 10/01/17 07/08/22 Shannan Malcolm CNP [address] [place] [address] 191472 PCP - General Nurse Practitioner - Family 07/09/22 Shannan Malcolm CNP [address] [place] [address] Assigned PCP 04/07/22 Nabeel Nolan MD [facility] 250 [place] [address] Assigned Behavioral Health Provider 06/02/22 09/21/22 Mattie Tellez APRN CHAR DUST CLEANER AND SALVAGER 500 [place] [address] Assigned Behavioral Health Provider 09/22/22 documented as of this encounter
--- OUTSIDE RECORDS SUMMARY | 2024-04-05 07:32 | XMS_ITS | Encounter Summary ---
Author Organization [place] Address [address] [place] [address] Care Team Providers Care Intake Counselor Name Role Phone Shannan Malcolm HUMAN RESOURCES CONSULTANT Unavailable [phone] Nabeel Nolan MD Unavailable [phone] Shannan Malcolm HUMAN RESOURCES CONSULTANT Primary Care Provider Mattie Tellez APRN HUMAN RESOURCES CONSULTANT Unavailable [phone] Reason for Visit * Reason Onset Date Comments Refill Request 09/15/2022 Encounter Details Date Type Department Care Team (Late st Contact Info) Description 09/15/2022 MyC Medical Advice [address] [place] [phone] Shannan Malcolm, HUMAN RESOURCES CONSULTANT [address] [place] [address] Refill Request Social History Tobacco Use [...] on file Legal Sex Female 3:13 AM SURVEILLANCE INSPECTOR Gender Identity Female 02/08/2022 7:17 AM [...] [facility] Mental Health & Addiction [facility] [address] [place] [address] Lexi Farnsworth, MAORI PHYSIOTHERAPIST [address] 200 [place], [place] [address] 04/06/2024 8:00 AM CDT Virtual Visit [facility] [address] [address] [place] [address] Mattie Tellez APRN HUMAN RESOURCES CONSULTANT 500 [place], [place] [address] documented as of this encounter Visit Diagnoses Not on filedocumented in this encounter Additional Health Concerns Assessment Noted Time PHQ-9 Depression Total Score: 25 023 7:10 AM CDT documented as of this encounter Care Teams Intake Counselor Relationship Specialty Start Date End Date Shannan Malcolm CNP [address] [place] [address] PCP - General Nurse Practitioner - Family 07/09/22 Shannan Malcolm CNP [address] [place] [address] Assigned PCP 04/07/22 Nabeel Nolan MD [address] [facility] [address] 250 [place] [address] Assigned Behavioral Health Provider 06/02/22 09/21/22 Mattie Tellez APRN HUMAN RESOURCES CONSULTANT 500 [place], [place] [address] Assigned Behavioral Health Provider 09/22/22 documented as of this encounter
--- OUTSIDE RECORDS SUMMARY | 2024-04-05 07:32 | XMS_ITS | Encounter Summary ---
Author Organization [place] Address [address] [place] [address] Care Team Providers Care Cabinet Assembler Name Role Phone Anni Nair PA-C Primary Care Provider [phone] Shannan Malcolm CERAMIC TILE INSTALLER Unavailable [phone] Nabeel Nolan MD Unavailable [phone] Shannan Malcolm CERAMIC TILE INSTALLER Primary Care Provider [phone] Mattie Tellez APRN CERAMIC TILE INSTALLER Unavailable [phone] Encounter Details Date Type Department Care Team (Late st Contact Info) Description 03/29/2022 MyC Medical Advice [address] [place] [address] Zeynep Del Castillo RN 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 ROUGHER OPERATOR Gender Identity Female 02/08/2022 7:17 AM [...] Please review and advise Thank you Maria Antonai Vázquez RN, BSN [place] Triage documented in this encounter Plan of Treatment Upcoming Encounters Date Type Department Care Team (Late st Contact Info) Description 04/06/2024 7:30 AM CDT Virtual Visit [facility] Mental Health & Addiction [facility] [address] [place] [address] [address] [place] [address] Lexi Farnsworth, [facility] [address] [facility] 200 [place] [address] 04/06/2024 8:00 AM CDT Virtual Visit [facility] Addiction [facility] [address] [place] [address] [address] [place] [address] Mattie Tellez, COATING MACHINE OPERATOR HELPER CERAMIC TILE INSTALLER 500 [place], [place] [address] documented as of this encounter Visit Diagnoses Not on filedocumented in this encounter Additional Health Concerns Infection Onset Date Last Indicated Resolved Time Rule Out COVID-19 03/09/2022 03/09/2022 03/30/2022 11:39 PM CDT Assessment Noted Time PHQ-9 Depression Total Score: 15 022 8:50 AM CDT documented as of this encounter Care Teams Cabinet Assembler Relationship Specialty Start Date End Date Anni Nair PA-C PCP - General Physician Aviation Ordnance Officer 10/01/17 07/08/22 Shannan Malcolm CNP [address] [place] [address] PCP - General Nurse Practitioner - Family 07/09/22 Shannan Malcolm CNP [address] [place] [address] Assigned PCP 04/07/22 Nabeel Nolan MD [address] [place] [address] [id number] Assigned Behavioral Health Provider 06/02/22 09/21/22 Mattie Tellez APRN CERAMIC TILE INSTALLER [address] [place] [address] Assigned Behavioral Health Provider 09/22/22 documented as of this encounter
--- OUTSIDE RECORDS SUMMARY | 2024-04-05 07:32 | XMS_ITS | Encounter Summary ---
Author Organization [place] Address [address] [place] [address] Care Team Providers Care Coding And Reimbursement Specialist Name Role Phone Anni Nair PA-C Primary Care Provider [phone] Shannan Malcolm SILICA MIXER OPERATOR Unavailable [phone] Nabeel Nolan MD Unavailable [phone] Shannan Malcolm CNP Primary Care Provider Mattie Tellez APRN SILICA MIXER OPERATOR Unavailable [phone] Encounter Details Date Type Department Care Team (Late st Contact Info) Description 06/14/2022 MyC Medical Advice [address] [place] [address] Shannan Malcolm, SILICA MIXER OPERATOR [address] [place] [place] [address] Social History Tobacco Use Types Packs/Day [...] on file Legal Sex Female 3:13 AM OFFICE PROFESSIONAL Gender Identity Female 02/08/2022 7:17 AM CDT Sexual Orientation Choose not to disclose 2021 7:17 AM CDT documented as of this encounter Plan of Treatment Upcoming Encounters Date Type Department Care Team (Late st Contact Info) Description 04/06/2024 7:30 AM CDT Virtual Visit [facility] Mental Health & Addiction [facility] [address] [place] [address] Lexi Farnsworth, [facility] [address] [place], [place] [address] 04/06/2024 8:00 AM CDT Virtual Visit [facility] Mental Health & Addiction [facility] [address] [place] [address] Mattie Tellez APRN SILICA MIXER OPERATOR 500 [place], [place] [address] documented as of this encounter Visit Diagnoses Not on filedocumented in this encounter Additional Health Concerns Assessment Noted Time PHQ-9 Depression Total Score: 16 022 9:07 AM OFFICE PROFESSIONAL documented as of this encounter Care Teams Coding And Reimbursement Specialist Relationship Specialty Start Date End Date Anni Nair PA-C PCP - General Physician Manager Discovery 10/01/17 07/08/22 Shannan Malcolm CNP [address] [place] [place] [address] 969262 PCP - General Nurse Practitioner - Family 07/09/22 Shannan Malcolm CNP [address] [place] [place] [address] 464012 Assigned PCP 04/07/22 Nabeel Nolan MD [facility]5 [facility] 250 [place] [address] Assigned Behavioral Health Provider 06/02/22 09/21/22 Mattie Tellez APRN SILICA MIXER OPERATOR 500 [place], [place] [address] Assigned Behavioral Health Provider 09/22/22 documented as of this encounter
--- OUTSIDE RECORDS SUMMARY | 2024-04-05 07:32 | XMS_ITS | Encounter Summary ---
Author Organization [place] Address [address] [place] [address] Care Team Providers Care Healthcare Customer Service Name Role Phone Anni Nair PA-C Primary Care Provider [phone] Shannan Malcolm MILLWRIGHT INSTRUCTOR Unavailable [phone] Shannan Malcolm CNP Unavailable [phone] Nabeel Nolan MD Unavailable [phone] Shannan Malcolm CNP Primary Care Provider [phone] Mattie Tellez APRN MILLWRIGHT INSTRUCTOR Unavailable [phone] Reason for Visit * Reason Onset Date Comments MyChart Communication 03/05/2022 Encounter Details Date Type Department Care Team (Late st Contact Info) Description 03/05/2022 MyC Medical Advice [address] [address] Shannan Malcolm, MILLWRIGHT INSTRUCTOR [address] [place] [address] MyChart Communication Social History Tobacco Use [...] on file Legal Sex Female 3:13 AM OFFICER LIEUTENANT Gender Identity Female 02/08/2022 7:17 AM CDT [...] Thank you Maria Antonia Vázquez RN, BSN [place] Triage documented in this encounter Plan of Treatment Upcoming Encounters Date Type Department Care Team (Late st Contact Info) Description 04/06/2024 7:30 AM CDT Virtual Visit [facility] Mental Health & Addiction [facility] [address] [place] [address] [address] [place] [address] Lexi Farnsworth, [facility] [address] [place], [place] [address] 04/06/2024 8:00 AM CDT Virtual Visit [facility] Mental Health & Addiction [facility] [address] [place] [address] Mattie Tellez APRN MILLWRIGHT INSTRUCTOR 500 [place], [place] [address] documented as of this encounter Visit Diagnoses Not on filedocumented in this encounter Additional Health Concerns Infection Onset Date Last Indicated Resolved Time Rule Out COVID-19 03/09/2022 03/09/2022 03/30/2022 11:39 PM CDT Assessment Noted Time PHQ-9 Depression Total Score: 15 022 8:50 AM CDT documented as of this encounter Care Teams Healthcare Customer Service Relationship Specialty Start Date End Date Anni Nair PA-C PCP - General Physician Neurobiologist 10/01/17 07/08/22 Shannan Malcolm CNP [address] [place] [address] PCP - General Nurse Practitioner - Family 07/09/22 Shannan Malcolm CNP [address] [place] [address] Assigned PCP 02/24/22 03/16/22 Shannan Malcolm CNP [address] [place] [address] 967542 Assigned PCP 04/07/22 Nabeel Nolan MD [address] [place] [address] [id number] Assigned Behavioral Health Provider 06/02/22 09/21/22 Mattie Tellez APRN MILLWRIGHT INSTRUCTOR [address] [place] [address] 437765 Assigned Behavioral Health Provider 09/22/22 documented as of this encounter
--- OUTSIDE RECORDS SUMMARY | 2024-04-05 07:32 | XMS_ITS | Encounter Summary ---
Author Organization [place] Address [address] [place] [address] Care Team Providers Care Ben Day Artist Name Role Phone Anni Nair PA-C Primary Care Provider [phone] Shannan Malcolm BSS SOLUTION ARCHITECT Unavailable [phone] Nabeel Nolan MD Unavailable [phone] Shannan Malcolm BSS SOLUTION ARCHITECT Primary Care Provider [phone] Mattie Tellez APRN BSS SOLUTION ARCHITECT Unavailable [phone] Reason for Visit * Reason Onset Date Comments MyChart Communication 04/23/2022 Encounter Details Date Type Department Care Team (Late st Contact Info) Description 04/23/2022 MyC Medical Advice [address] [phone] Shannan Malcolm, BSS SOLUTION ARCHITECT [address] [place] [address] MyChart Communication Social History Tobacco Use [...] file Legal Sex Female 3:13 AM SAMPLE HAND Gender Identity Female 02/08/2022 7:17 AM CDT [...] Antonia Vázquez RN - 04/26/2022 2:32 PM SAMPLE HAND Please see my chart message below Please review and advise Thank you Maria Antonia Vázquez RN, BSN [place] Triage LE HAND documented in this encounter Plan of Treatment Upcoming Encounters Date Type Department Care Team (Late st Contact Info) Description 04/06/2024 7:30 AM CDT Virtual Visit [facility] Mental Health & Addiction [facility] [address] [place] [address] [address] [place] [address] Lexi Farnsworth, WELL TESTER [address] [place], [place] [address] 04/06/2024 8:00 AM CDT Virtual Visit [facility] Mental Health & Addiction [facility] [address] [address] [place] [address] Mattie Tellez, [place] BSS SOLUTION ARCHITECT 500 [place], [place] [address] documented as of this encounter Visit Diagnoses Not on filedocumented in this encounter Additional Health Concerns Assessment Noted Time PHQ-9 Depression Total Score: 25 022 7:08 AM SAMPLE HAND documented as of this encounter Care Teams Ben Day Artist Relationship Specialty Start Date End Date Anni Nair PA-C PCP - General Physician Moshgiach 10/01/17 07/08/22 Shannan Malcolm CNP [address] [place] [address] 232022 PCP - General Nurse Practitioner - Family 07/09/22 Shannan Malcolm CNP [address] [place] [address] [phone] Assigned PCP 04/07/22 Nabeel Nolan MD [address] [place] [address] [phone] Assigned Behavioral Health Provider 06/02/22 09/21/22 Mattie Tellez APRN BSS SOLUTION ARCHITECT [address] [place] [address] 037265 Assigned Behavioral Health Provider 09/22/22 documented as of this encounter
--- OUTSIDE RECORDS SUMMARY | 2024-04-05 07:32 | XMS_ITS | Encounter Summary ---
Author Organization [place] Address [address] [place] [address] Care Team Providers Care Delivery Room Supervisor Name Role Phone Anni Nair PA-C Primary Care Provider [phone] Shannan Malcolm MUNICIPAL MAINTENANCE WORKER Unavailable [phone] Nabeel Nolan MD Unavailable [phone] Shannan Malcolm CNP Primary Care Provider Mattie Tellez APRN MUNICIPAL MAINTENANCE WORKER Unavailable [phone] Encounter Details Date Type Department Care Team (Late st Contact Info) Description 06/12/2022 MyC Medical Advice [address] [place] [address] Shannan Malcolm, MUNICIPAL MAINTENANCE WORKER [address] [place] [address] Social History Tobacco Use Types Packs/Day [...] on file Legal Sex Female 3:13 AM PLASTER DIE MAKER Gender Identity Female 02/08/2022 7:17 AM CDT Sexual Orientation Choose not to disclose 2021 7:17 AM CDT documented as of this encounter Miscellaneous Notes * Telephone Encounter - Xiomara Jones RN - 06/13/2022 12:44 PM CST FYI to provider. Pt did have a follow up visit Xiomara Siddiqi RN, BSN TER DIE MAKER documented in this encounter Plan of Treatment Upcoming Encounters Date Type Department Care Team (Late st Contact Info) Description 04/06/2024 7:30 AM CDT Virtual Visit [facility] Mental Health & Addiction [facility] [address] [place] [address] 400 [place] [address] Lexi Farnsworth LICSW [address] [place], [place] [address] 04/06/2024 8:00 AM CDT Virtual Visit [facility] Mental Health & Addiction [facility] [address] [place] [address] [address] [place] [address] Mattie Tellez APRN [facility] 500 [place], [place] [address] documented as of this encounter Visit Diagnoses Not on filedocumented in this encounter Additional Health Concerns Assessment Noted Time PHQ-9 Depression Total Score: 16 05/28/ 022 9:07 AM PLASTER DIE MAKER documented as of this encounter Care Teams Delivery Room Supervisor Relationship Specialty Start Date End Date Anni Nair PA-C PCP - General Physician Warper Creeler 10/01/17 07/08/22 Shannan Malcolm CNP [address] [place] [address] PCP - General Nurse Practitioner - Family 07/09/22 Shannan Malcolm CNP [address] [place] [address] Assigned PCP 04/07/22 Nabeel Nolan MD [facility] [address] Assigned Behavioral Health Provider 06/02/22 09/21/22 Mattie Tellez APRN MUNICIPAL MAINTENANCE WORKER 500 [place] [address] Assigned Behavioral Health Provider 09/22/22 documented as of this encounter
--- OUTSIDE RECORDS SUMMARY | 2024-04-05 07:32 | XMS_ITS | Clinical Summary ---
Author Organization [employer] [facility] Address [place], [place] [address] Care Team Providers Care Database Development Project Manager Name Role Phone Brionna Giang MD Primary [...] (07/18/2023): Patient is followed by Azra Shine, SERVER CASHIER, SERVER CASHIER for ongoing prescription of a controlled medicine. [...] N Livin g 8 16 November Delivery Location:[facility] Last Filed Vital Signs Vital Sign Reading [...] ANTI HIV 1/2 Routine 07/22/2023 11:43 AM FUEL CELL BATTERY TECHNICIAN Screen for STD (sexually transmitted disease) ANTI HCV Routine 07/22/2023 11:43 AM FUEL CELL BATTERY TECHNICIAN Screen for STD (sexually transmitted disease) HPV HIGH RISK Routine 07/22/2023 11:15 AM FUEL CELL BATTERY TECHNICIAN Pap smear for cervical cancer screening from Last 3 Months or Most Recently Relevant to Health Maintenance Results * ANTI HCV (07/22/2023 11:43 AM FUEL CELL BATTERY TECHNICIAN) HEPATITIS C ANTIBODY Non-Reacti ve Non-React ira 07/22/2023 4:39 PM FUEL CELL BATTERY TECHNICIAN [facility] Comment:Please note, per www .CDC.gov: If a patient is known to be at high risk of HCV infection, or is symptomatic, and the physician's suspicion of HCV infection is high, HCV RNA testing is often employed and is of diagnostic value, even after an initial negative anti-HCV test result. Blood BLOOD SPECIMEN / Unknown Venipuncture / Unknown 07/22/2023 11:43 AM FUEL CELL BATTERY TECHNICIAN 07/22/2023 11:43 AM FUEL CELL BATTERY TECHNICIAN Brionna Giang MD SEND OUTS [facility] [address] [place] [address] * ANTI HIV 1/2 (07/22/2023 11:43 AM FUEL CELL BATTERY TECHNICIAN) HIV-1/HIV-2 SCREEN Non-Reacti ve Non-Reacti ve 07/22/2023 4:48 PM FUEL CELL BATTERY TECHNICIAN [facility] Comment:HIV-1 p24 and HIV-1/ HIV-2 Ab Not Detected. Blood BLOOD SPECIMEN / Unknown Venipuncture / Unknown 07/22/2023 11:43 AM FUEL CELL BATTERY TECHNICIAN 07/22/2023 11:43 AM FUEL CELL BATTERY TECHNICIAN Brionna Giang MD SEND OUTS [facility] [address] [place] [address], * HPV HIGH RISK (07/22/2023 11:15 AM FUEL CELL BATTERY TECHNICIAN) TYPE 16 Negative Negative 07/24/2023 5:14 PM FUEL CELL BATTERY TECHNICIAN [facility] TYPE 18 Negative Negative 07/24/2023 5:14 PM FUEL CELL BATTERY TECHNICIAN [facility] OTHER HIGH RISK TYPES Negative Negative 07/24/2023 5:14 PM FUEL CELL BATTERY TECHNICIAN [facility] Other (Cervical) Non-Blood / Unknown 07/22/2023 11:15 AM FUEL CELL BATTERY TECHNICIAN 07/23/2023 9:42 AM FUEL CELL BATTERY TECHNICIAN Narrative [facility] - 07/24/2023 5:14 PM FUEL CELL BATTERY TECHNICIAN HPV types 16, 18, 31, 33, 35, 39, 45, 51, 52, 56, 58, 59, 66 and 68 DNA were undetectable or below the pre-set threshold. Methodology: Gregory Dudley 4800 HPV Test Brionna Giang MD MICROBIOLOGY [facility] [address] [place] [address], from Last 3 Months or Most Recently [...] 10:08 PM 08/22/2010 1:01 AM Care Teams Database Development Project Manager Relationship Specialty [place] [address] [place] [address] PCP - General Family Practice 07/22/23
--- OUTSIDE RECORDS SUMMARY | 2024-04-05 07:32 | XMS_ITS | Encounter Summary ---
Author Organization [facility] Address [address] [place] [address] Care Team Providers Care Liquid Loader Name Role Phone Nabeel Maki MD Primary Care Provider [phone] Noemi Vidal MD Primary Care Provider [phone] Azra Samano APRN MANAGER LOGISTIC Primary Care Provider Unavailable [facility] Primary Care Provider Anni Nair-C Primary Care Provider [phone] Anni Nair-C Unavailable [phone] Anni Nair-C Unavailable [phone] Lesli Ham PA-C Unavailable + [phone] Arellano DO Unavailable [phone] Anni Nair-C Unavailable [phone] Shannan Malcolm CNP Unavailable [phone] Shannan Malcolm CNP Unavailable [phone] Nabeel Nolan MD Unavailable [phone] Shannan Malcolm CNP Primary Care Provider [phone] Mattie Tellez APRN MANAGER LOGISTIC Unavailable [phone] Encounter Details Date Type Department Care Team (Late st Contact Info) Description 10/23/[address] [place] [address] Noemi Vidal MD [place] [address] [place] ED/H&P/CONSULT Social History Tobacco Use Types [...] on file Legal Sex Female 3:13 AM TELEVISION MAINTENANCE WORKER Gender Identity Female 02/08/2022 7:17 AM CDT Sexual Orientation Choose not to disclose 2021 7:17 AM CDT documented as of this encounter Plan of Treatment Upcoming Encounters Date Type Department Care Team (Late st Contact Info) Description 04/06/2024 7:30 AM CDT Virtual Visit [facility] [address] [place] [address] 400 [place] [address] Lexi Farnsworth LICSW [address] [facility] 200 [place], [place] [phone] 04/06/2024 8:00 AM CDT Virtual Visit [facility] [address] [address] [place] [phone] Mattie Tellez APRN [facility] 500 [place], [place] [phone] documented as of this encounter Visit Diagnoses Not on filedocumented in this encounter Additional Health Concerns Infection Onset Date Last Indicated Resolved Time Rule Out COVID-19 03/09/2022 03/09/2022 03/30/2022 11:39 PM CDT documented as of this encounter Care Teams Liquid Loader Relationship Specialty Start Date End Date Nabeel Maki MD [address] [place] [address] PCP - General 07/25/01 10/25/09 Noemi Vidal MD [address] [place] [address] PCP - General Family Practice 10/26/09 01/19/14 Azra Samano APRN MANAGER LOGISTIC [address] [place] [address] PCP - General Nurse Practitioner 01/20/14 11/08/[address] [address] PCP - General 11/09/15 09/30/17 Anni Nair PA-C [address] [place] [address] PCP - General Physician Gaming Dealer 10/01/17 07/08/22 Anni Nair PA-C [address] [place] [address] [phone] PCP - Assigned PCP 12/09/16 08/12/18 Shannan Malcolm, GROVER [address] [place] [address] PCP - General Nurse Practitioner - Family 07/09/22 Anni Nair PA-C [address] [place] [address] Assigned PCP 12/09/16 11/29/18 Lesli Ham PA-C [address] [place] [address] Assigned PCP 11/30/18 12/06/18 Rd Arellano DO [address] [place] [address] Assigned PCP 12/07/18 04/23/20 Anni Nair PA-C [address] [place] [address] Assigned PCP 04/24/20 10/15/20 Shannan Malcolm, GROVER [address] [place] [address] Assigned PCP 02/24/22 03/16/22 Shannan Malcolm, GROVER [address] [place] [address] Assigned PCP 04/07/22 Nabeel Nolan MD [facility] [address] Assigned Behavioral Health Provider 06/02/22 09/21/22 Mattie Tellez APRN MANAGER LOGISTIC [address] [place] [address] Assigned Behavioral Health Provider 09/22/22 documented as of this encounter
--- OUTSIDE RECORDS SUMMARY | 2024-04-05 07:32 | XMS_ITS | Encounter Summary ---
Author Organization [facility] Address [address] [place] [address] Care Team Providers Care Business Process Coordinator Name Role Phone Shannan Malcolm SOFTWARE QUALITY AUTOMATION ENGINEER Unavailable [phone] Nabeel Nolan MD Unavailable [phone] Shannan Malcolm SOFTWARE QUALITY AUTOMATION ENGINEER Primary Care Provider Mattie Tellez APRN SOFTWARE QUALITY AUTOMATION ENGINEER Unavailable [phone] Reason for Visit * Reason Onset Date Comments Refill Request 09/15/2022 Encounter Details Date Type Department Care Team (Late st Contact Info) Description 09/15/2022 MyC Refill [address] [phone] Shannan Malcolm, SOFTWARE QUALITY AUTOMATION ENGINEER [address] [place] [address] [phone] Refill Request Social History Tobacco Use Types [...] on file Legal Sex Female 3:13 AM VISCOSITY TESTER Gender Identity Female 02/08/2022 7:17 AM [...] refill protocol Maria Antonia Vázquez RN, BSN [facility] Triage documented in this encounter Plan of Treatment Upcoming Encounters Date Type Department Care Team (Late st Contact Info) Description 04/06/2024 7:30 AM CDT Virtual Visit [facility] [address] [place] [place] [address] 400 [place] [address] Lexi Farnsworth, IMMERSION METAL CLEANER [address] [place] [address] [place] [address] 04/06/2024 8:00 AM CDT Virtual Visit [facility] [address] [place] [phone] Mattie Tellez APRN SOFTWARE QUALITY AUTOMATION ENGINEER 500 [place], [place] [address] documented as of this encounter Visit Diagnoses Diagnosis Anxiety Anxiety state, unspecified Panic attack Panic disorder without agoraphobia documented in this encounter Additional Health Concerns Assessment Noted Time PHQ-9 Depression Total Score: 25 023 7:10 AM CDT documented as of this encounter Care Teams Business Process Coordinator Relationship Specialty Start Date End Date Shannan Malcolm CNP [address] [place], [place] [address] PCP - General Nurse Practitioner - Family 07/09/22 Shannan Malcolm CNP [address] [place] [address] 197662 Assigned PCP 04/07/22 Nabeel Nolan MD [address] [place] [address] Assigned Behavioral Health Provider 06/02/22 09/21/22 Mattie Tellez APRN SOFTWARE QUALITY AUTOMATION ENGINEER 500 [place] [address] Assigned Behavioral Health Provider 09/22/22 documented as of this encounter
--- OUTSIDE RECORDS SUMMARY | 2024-04-05 07:32 | XMS_ITS | Encounter Summary ---
Author Organization [facility] Address [address] [place] [address] Care Team Providers Care Production Engine Repairer Name Role Phone Nabeel Maki MD Primary Care Provider [phone] Noemi Vidla MD Primary Care Provider [phone] Azra Samano APRN ADVERTISING OPERATIONS MANAGER Primary Care Provider Unavailable [facility] Primary Care Provider Anni Nair-C Primary Care Provider [phone] Anni Nair-C Unavailable +[phone] Anni Nair-C Unavailable +[phone] Lesli Ham PA-C Unavailable + [phone] Arell[address] DO Unavailable [phone] Anni Nair-C Unavailable +[phone] Shannan Malcolm CNP Unavailable +2-2 [phone] Shannan Malcolm CNP Unavailable [phone] Nabeel Nolan MD Unavailable [phone] Shannan Malcolm CNP Primary Care Provider [phone] Mattie Tellez APRN ADVERTISING OPERATIONS MANAGER Unavailable [phone] Encounter Details Date Type Department Care Team (Late st Contact Info) Description 10/25/[address] [place] [place] [address] Noemi Vidal MD [address] [place] [phone] [facility] D/C Social History Tobacco Use Types Packs/Day [...] on file Legal Sex Female 3:13 AM ORGAN PIPE VOICER Gender Identity Female 02/08/2022 7:17 AM CDT Sexual Orientation Choose not to disclose 2021 7:17 AM CDT documented as of this encounter Plan of Treatment Upcoming Encounters Date Type Department Care Team (Late st Contact Info) Description 04/06/2024 7:30 AM CDT Virtual Visit [facility] Mental Health & Addiction [facility] [address] [place] [address] 400 [place] [address] Lexi Farnsworth LICSW [address] [place] [facility] 200 [place], [place] [address] 04/06/2024 8:00 AM CDT Virtual Visit [facility] & Addiction [facility] [address] [address] [place] [phone] Mattie Tellez APRN [facility] 500 [place], [place] [address] documented as of this encounter Visit Diagnoses Not on filedocumented in this encounter Additional Health Concerns Infection Onset Date Last Indicated Resolved Time Rule Out COVID-19 03/09/2022 03/09/2022 03/30/2022 11:39 PM CDT documented as of this encounter Care Teams Production Engine Repairer Relationship Specialty Start Date End Date Nabeel Maki MD [address] [place] [address] PCP - General 07/25/01 10/25/09 Noemi Vidal MD [address] [place] [address] PCP - General Family Practice 10/26/09 01/19/14 Azra Samano APRN ADVERTISING OPERATIONS MANAGER [address] [place] [address] PCP - General Nurse Practitioner 01/20/14 11/08/[address] [address] PCP - General 11/09/15 09/30/17 Anni Nair PA-C [address] [place] [address] PCP - General Physician Felt Pad Cutter 10/01/17 07/08/22 Anni Nair PA-C [address] [place] [address] [phone] PCP - Assigned PCP 12/09/16 08/12/18 Shannan Malcolm, GROVER [address] [place] [address] PCP - General Nurse Practitioner - Family 07/09/22 Anni Nair PA-C [address] [place] [address] Assigned PCP 12/09/16 11/29/18 Lesli Ham PA-C [address] [place] [address] Assigned PCP 11/30/18 12/06/18 Rd Arellano DO [address] [place] [address] Assigned PCP 12/07/18 04/23/20 Anni Nair PA-C [address] [place] [address] Assigned PCP 04/24/20 10/15/20 Shannan Malcolm, GROVER [address] [place] [address] Assigned PCP 02/24/22 03/16/22 Shannan Malcolm, GROVER [address] [place] [address] Assigned PCP 04/07/22 Nabeel Nolan MD [facility] [address] Assigned Behavioral Health Provider 06/02/22 09/21/22 Mattie Tellez APRN ADVERTISING OPERATIONS MANAGER [address] [place] [address] Assigned Behavioral Health Provider 09/22/22 documented as of this encounter
--- OUTSIDE RECORDS SUMMARY | 2024-04-05 07:32 | XMS_ITS | Encounter Summary ---
Author Organization [facility] Address [address] [place] [address] Care Team Providers Care Media Marketing Coordinator Name Role Phone Anni Nair PA-C Primary Care Provider [phone] Shannan Malcolm HOSPITAL ORDERLY Unavailable [phone] Nabeel Nolan MD Unavailable [phone] Shannan Malcolm CNP Primary Care Provider Mattie Tellez APRN HOSPITAL ORDER[facility] Unavailable [phone] Encounter Details Date Type Department Care Team (Late st Contact Info) Description 03/19/2022 MyC Medical Advice [address] [place] [address] Shannan Malcolm, HOSPITAL ORDERLY [address] [place] [address] Social History Tobacco Use Types Packs/Day [...] on file Legal Sex Female 3:13 AM STERILE PROC TECH Gender Identity Female 02/08/2022 7:17 AM CDT Sexual Orientation Choose not to disclose 2021 7:17 AM CDT documented as of this encounter Plan of Treatment Upcoming Encounters Date Type Department Care Team (Late st Contact Info) Description 04/06/2024 7:30 AM CDT Virtual Visit [facility] Addiction [facility] [address] [place] [address] Lexi Farnsworth, [facility] [address] [place] [address] [place] [address] 04/06/2024 8:00 AM CDT Virtual Visit [facility] Addiction [facility] [address] [place] [phone] Mattie Tellez APRN HOSPITAL ORDERLY [address] [place], [place] [address] documented as of this encounter Visit Diagnoses Not on filedocumented in this encounter Additional Health Concerns Infection Onset Date Last Indicated Resolved Time Rule Out COVID-19 03/09/2022 03/09/2022 03/30/2022 11:39 PM CDT Assessment Noted Time PHQ-9 Depression Total Score: 15 022 8:50 AM CDT documented as of this encounter Care Teams Media Marketing Coordinator Relationship Specialty Start Date End Date Anni Nair PA-C PCP - General Physician Packer Dried Beef 10/01/17 07/08/22 Shannan Malcolm CNP [address] [place] [address] [phone] PCP - General Nurse Practitioner - Family 07/09/22 Shannan Malcolm CNP [address] [place] [address] [phone] Assigned PCP 04/07/22 Nabeel Nolan MD [address] [place] [address] [phone] Assigned Behavioral Health Provider 06/02/22 09/21/22 Mattie Tellez APRN [facility] [address] [place] [address] Assigned Behavioral Health Provider 09/22/22 documented as of this encounter
--- NOTE | 2024-04-05 07:53 | P.GSCN_ITS ---
History of Present Illness Consult details Date Seen: 04/05/24 Consult date: 04/05/24 Narrative: 38-year-old female presented to emergency room with right upper quadrant abdominal pain that started yesterday mid day. Patient states the pain was initially dull and escalated to ?severe?. The pain was described as crampy and was not resolving. She also developed nausea and decided to come to the emergency room. Patient had similar milder episodes in the past that would last 10-15 minutes and spontaneously resolve. Nothing was making the pain better and patient could not get comfortable throughout the day. I personally reviewed patient's workup in the emergency room. She was found to have normal WBC. Liver function tests were normal. A gallbladder ultrasound was obtained that showed a large stone in the gallbladder with mildly thickened gallbladder wall with pericholecystic fluid. The common bile duct was 4 mm in size. Review of Systems Narrative: General: no fevers HENT: no problems swallowing CV: no shortness of breath Resp: no cough GI: No nausea, vomiting, abdominal pain : no dysuria, no increased urinary frequency, no hematuria Skin: no new rashes Musculoskeletal: no back pain Neuro: no muscle weakness Psyche: no depression, no anxiety PFSH PFSH Surgical History (Updated 04/05/24 @ 07:56 by Jb Vila MD) History of appendectomy ?Z90.49 - Acquired absence of other specified parts of digestive tract (ICD- 10) Social History Smoking Status: Never smoker Do you use any of these nicotine containing products: None Second hand tobacco smoke exposure: No How often do you have a drink containing alcohol: never AUDIT-C Alcohol total score: 0 Non-prescribed substance use: denies use Non-prescribed substance use details: 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 Meds Home Medications and Allergies Home Medications ?Medication ?Instructions ?Recorded ?Confirmed ?Type clonazepam 0.5 mg tablet 0.5 mg PO HS PRN 03/18/24 04/04/24 History dexmethylphenidate 15 mg 15 mg PO DAILY 03/18/24 04/04/24 History capsule,extended release [id number] (Focalin XR) fluoxetine 20 mg capsule 60 mg PO DAILY 03/18/24 04/04/24 History lorazepam 0.5 mg tablet (Ativan) 0.5 mg PO BID-TID PRN 03/18/24 03/18/24 History Allergies Allergy/AdvReac Type Severity Reaction Status Date / Time Penicillins Allergy Severe Hives Verified 04/04/24 18:09 Exam Narrative: Exam Narrative: General appearance: Alert, cooperative, and in no distress Pulmonary: Chest symmetric, lungs clear bilaterally Cardiovascular Heart: Regular rate and rhythm, S1, S2, no murmurs/rubs/gallops Gastrointestinal Abdominal: soft, not distended, mildly tender to palpation in right lower quadrant and significantly tender to palpation in epigastrium and right upper quadrant with positive Ledesma sign. Skin: Normal skin color, texture, and turgor. No rashes or lesions. Psychiatric: Alert, cooperative, normal affect. Const: Vital Signs, click to edit/add: Vital Signs - 24 hr 04/04/24 18:10 04/04/24 19:30 04/04/24 20:10 Temperature 98.3 F Pulse Rate 97 Pulse Rate [Pulse Oximeter] 99 93 Respiratory Rate 24 12 16 Blood Pressure [Ri ght Upper Arm] 158/65 H 139/95 H Pulse Oximetry 100 100 100 Oxygen Delivery Me thod Room Air Room Air 04/04/24 22:23 04/04/24 23:00 04/05/24 02:00 Temperature Pulse Rate Pulse Rate [Pulse Oximeter] 82 82 80 Respiratory Rate 15 14 16 Blood Pressure [Ri ght Upper Arm] 132/88 132/88 121/76 Pulse Oximetry 99 98 98 Oxygen Delivery Me thod Room Air Room Air Room Air 04/05/24 04:24 Temperature 98 F Pulse Rate Pulse Rate [Pulse Oximeter] 66 Respiratory Rate 16 Blood Pressure [Ri ght Upper Arm] 122/97 H Pulse Oximetry 98 Oxygen Delivery Me thod Room Air Results Labs Labs: Abnormal lab results 04/04/24 04/04/24 Range/Units 18:42 20:00 C-Reactive Protein < 0.5 L (0.5-1.0) mg/dL Urine Appearance Slightly Cloudy A (Clear) Ur Squamous Epith Cells Moderate A (None-Few) Urine Bacteria Few A (None) Diabetes panel 04/04/24 Range/Units 18:42 Sodium 138 (135-149) mmol/L Potassium 3.8 (3.6-5.1) mmol/L Chloride 104 (96-114) mmol/L Carbon Dioxide 25 (20-32) mmol/L BUN 17 (5-24) mg/dL Creatinine 0.6 (0.5-1.5) mg/dL Glucose 99 (60-115) mg/dL Calcium 9.6 (8.4-10.6) mg/dL AST 22 (12-35) U/L ALT 21 (4-35) U/L Alkaline Phosphatase 83 (40-150) U/L Total Protein 7.9 (6.0-8.3) g/dL Albumin 4.8 (3.3-5.0) g/dL Calcium panel 04/04/24 Range/Units 18:42 Calcium 9.6 (8.4-10.6) mg/dL Albumin 4.8 (3.3-5.0) g/dL Pituitary panel 04/04/24 Range/Units 18:42 Sodium 138 (135-149) mmol/L Potassium 3.8 (3.6-5.1) mmol/L Chloride 104 (96-114) mmol/L Carbon Dioxide 25 (20-32) mmol/L BUN 17 (5-24) mg/dL Creatinine 0.6 (0.5-1.5) mg/dL Glucose 99 (60-115) mg/dL Calcium 9.6 (8.4-10.6) mg/dL Adrenal panel 04/04/24 Range/Units 18:42 Sodium 138 (135-149) mmol/L Potassium 3.8 (3.6-5.1) mmol/L Chloride 104 (96-114) mmol/L Carbon Dioxide 25 (20-32) mmol/L BUN 17 (5-24) mg/dL Creatinine 0.6 (0.5-1.5) mg/dL Glucose 99 (60-115) mg/dL Calcium 9.6 (8.4-10.6) mg/dL Total Bilirubin 0.2 (0.1-1.5) mg/dL AST 22 (12-35) U/L ALT 21 (4-35) U/L Alkaline Phosphatase 83 (40-150) U/L Total Protein 7.9 (6.0-8.3) g/dL Albumin 4.8 (3.3-5.0) g/dL All other labs normal. Progress Note:A&P Assessment and plan (1) Acute cholecystitis: Status: Acute Assessment and Plan: 38-year-old female presented to emergency room with right upper quadrant abdominal pain that is most likely due to acute cholecystitis. I discussed with the patient my clinical findings. I discussed her workup and my clinical exam. I suspect that this patient has acute cholecystitis. I recommended to proceed with laparoscopic cholecystectomy. The procedure was discussed in detail. The risks associated procedure including infection, bleeding, injury to intra-abdominal organs, and injury to the common bile duct were all discussed with the patient, and she agreed to proceed.
--- NOTE | 2024-04-05 07:59 | P.GSOP_ITS ---
Operative Note Date of procedure: 04/05/24 Pre-op diagnosis: 1. Acute cholecystitis. 2. Cholelithiasis. Post-op diagnosis: Same Type of Procedure: 1. Laparoscopic cholecystectomy. Indications: 38-year-old female presented to emergency room with right upper quadrant pain of several hours duration. The pain was getting severe and not resolving. Patient also developed nausea. In the emergency room she was found to have normal WBC. Her liver function tests were normal. A gallbladder ultrasound was obtained that showed a large stone in the gallbladder neck with pericholecystic fluid. The common bile duct was normal in size. On clinical exam patient had tenderness to palpation in the right lower quadrant and more severe in the right upper quadrant with positive Ledesma sign. Given patient's clinical history and her physical exam, acute cholecystitis was suspected, and laparoscopic cholecystectomy was recommended. The procedure was discussed in detail. The risks associated procedure including infection, bleeding, injury to intra- abdominal organs, and injury to the common bile duct were all discussed with the patient, and she agreed to proceed. Procedure Description: After discussing the risks and benefits of the procedure, the patient signed informed consent.? The operative site was marked and the patient was brought to the operating room and placed on the operating table in supine position.? Care was taken to pad the patient's pressure points.?? The patient was then intubated by anesthesia.?? The operative site was then prepped and draped in the usual sterile fashion.? A time-out was then performed. A 5-mm laparoscopy port was placed in the left upper quadrant guided by a 5-mm laparoscope placed into a translucent trochar.~ Passage through the layers of the abdominal wall was visualized with the laparoscope.~ A pneumoperitoneum was established. A 0-degree 5-mm laparoscope was advanced into the abdomen. The abdomen was briefly surveyed, and no adhesions were noted. A 10-mm port were placed infraumbilically and two more 5 mm ports were placed on the right under direct visualization by laparoscope. The camera was then changed to 10 mm 30- degree scope and placed into the abdomen through the 10 mm port. The left upper quadrant port entrance was examined and no injury to intra-abdominal organs was identified. The gallbladder was identified, the fundus grasped and retracted cephalad. Omentum was adherent to the gallbladder wall, those adhesions were taken down with hook cautery. The infundibulum was grasped and retracted laterally, exposing the peritoneum overlying the triangle of Calot. This was then divided and exposed in a blunt fashion and with hook cautery. Common bile duct was not identified but care was taken not to injure it. The cystic duct was clearly identified and bluntly dissected circumferentially. Cystic artery was identified and tissues around it were dissected off. The cystic artery was just posterior and medial to the cystic duct. The cystic artery and the cystic duct were clearly going into the gallbladder. The cystic duct was then doubly ligated with surgical clips on the patient's side and singly clipped on the gallbladder side and divided. This allowed better visualization of the cystic artery. The cystic artery was then similarly ligated with clips and divided as well. The gallbladder was dissected from the liver bed in retrograde fashion using hookcautery. Edema was noted in the gallbladder wall. When the gallbladder was dissected of the liver, it was placed into an Endo-Catch bag and removed through the infraumbilical incision. Surgical site was examined for bleeding. No bleeding was seen in the surgical field. The fascia of the infraumbilical incision was then closed with 0-0 vicryl using Tee Nickolas needle under direct visualization. Pneumoperitoneum was completely reduced after viewing removal of the trocars under direct vision. The skin was then closed with 4-0 monocryl and steristrips were applied. Instrument, sponge, and needle counts were correct at closure and at the conclusion of the case. The patient was transferred to PACU in stable condition. Findings: Acute cholecystitis Anesthesia: GETA Surgeon: Jb Vila MD Estimated blood loss (mL): 5 Specimen: Gallbladder Condition: stable Disposition: PACU
--- NOTE | 2024-04-05 08:03 | ED.NURSE ---
Patient to SDS via cot. Belongings with patient on cot on belongings bag.
[2024-04-05] MEDS: CEFAZOLIN 2 GM INJ IVP (08:16)
[2024-04-05] MEDS: BUPIVACAINE 0.25% 30 ML INJECTION (09:00)
[2024-04-05] MEDS: LIDOCAINE 1%-EPI 1:100,000 20 ML INFILTRATI (09:00)
--- NOTE | 2024-04-05 09:32 | W.ANESCHARGE ---
Anesthesia Charges Start Date/Time Anesthesia Start Date: 04/05/24 Anesthesia Start Time: 08:03 Stop Date/Time Anesthesia Stop Date: 04/05/24 Anesthesia Stop Time: 09:19
[2024-04-05] MEDS: HYDROmorphone 0.5 mg/0.5 ml inj IVP ×2 (10:07→11:11)
--- NOTE | 2024-04-05 11:50 | PC.NURSE ---
Patient's mother Kirit called for update. Verified with patient that this ok. Patient verbalizes to myself and Unique MARKS that she is ok with giving mom update.
[2024-04-05] MEDS: HYDROCODONE-ACETAMIN 5-325 MG 1 TAB PO (12:08)
--- NOTE | 2024-04-05 14:00 | PC.NURSE ---
Patient's pharmacy is closed on Saturday. Spoke with Dr. Vila via telephone and prescription will be filled via [facility]. New prescription from Dr. Vila: [place] 5mg/325mg tablet. Take 1 orally every 6 hours as needed as pain. Patient reports concerns of having pain at this time, Dr. Vila aware and reaffirmed patient will have some pain and [place] will be used to treat this.
--- NOTE | 2024-04-05 15:00 | PC.NURSE ---
Shift Summary: Patient pleasant and cooperative. Vitals stable and WNL. C/O pain when arrived from pacu, given PRN dilaudid with some relief, given again one hour later, pain improved. Patient able to eat regular diet and void, seen walking in halls with family. Still complaining of pain and anxiety, Surgeon updated and given one time order for PRN ativan, given with some relief. 2 tab of PRN norco given with relief. Informed patient that some pain is expected, patient agreeable to discharge plan. Discussed discharge with patient, discussed need to track acetaminophen usage since it is in both her [place] and over the counter tylenol. Discussed use of ice and positioning for pain management as well as splinting abdomen with pillow when sitting up. IV removed. Patient discharged home with family. Medications picked up through [facility].
== END 2024-04-05 14:48 | disposition home or self-care (01) ==
LOC: ED 04-05 07:21 → SS 04-05 07:28 → MEDSURG 04-05 10:19
PROVIDERS: Emergency Provider Emergency Medicine; Visit Provider Surgery
PROC: 0FT44ZZ Resection of Gallbladder, Percutaneous Endoscopic Approach (ICD-10-PCS; CPT 47562; principal; 2024-04-05 08:00)
DX: K80.00 Calculus of gallbladder with acute cholecystitis without obstruction (principal); R10.11 Right upper quadrant pain; R42 Dizziness and giddiness
CPT/HCPCS: 47562; 00790; 36415; 76705; 80048; 80076; 81001; 81025; 83605; 83690; 85025; 86140; 87086; 88304; 99284; 99285; A9270; J0330; J0665; J0690; J1100; J1171; J1885; J1956; J2060; J2250; J2270; J2371; J2405; J2704; J2710; J3010; J3490

== ENCOUNTER 2024-04-11 17:20 | Emergency (ER) | payer MEDICAID, SELFPAY ==
[2024-04-11 17:25] VITALS: BP 134/87; PULSE 90; RESP 16; TEMP 37; O2SAT 97; BMI 30.2
--- OUTSIDE RECORDS SUMMARY | 2024-04-11 17:56 | XMS_ITS | Encounter Summary ---
Author Organization [facility] Address [address] [place] [address] Care Team Providers Care Sew On Operator Name Role Phone Shannan Malcolm CNP Unavailable [phone] Shannan Malcolm CNP Primary Care Provider [phone] Mattie Tellez APRN FORENSIC SCIENTIST Unavailable [phone] Reason for Visit * Reason Onset Date Comments Refill Request 03/09/2024 Focalin 5 mg Encounter Details Date Type Department Care Team (Late st Contact Info) Description 03/09/2024 MyC Refill [facility] [address] [place] [address] [address] [place] [address] Mattie Tellez APRN FORENSIC SCIENTIST [address] [place] [address] Refill Request (Focalin 5 mg) [...] on file 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 policy. [x]Medication unable to be refilled by [...] refill? Yes Any Controlled Substance(s)? Yes [place] checked? Yes was last sold on 02/07/24 for quantity of 30. Other controlled substance on [place]?: Yes If yes, are any new medications? [...] Follow-up with this provider + Behavioral Health Stop Attacher in 1 month. Additionally sending referral for DBT. Patient agreeable to plan. Any medication(s) require lab monitoring? No documented in this encounter Plan of Treatment Not on file documented as of this encounter Visit Diagnoses Diagnosis Attention deficit hyperactivity disorder (ADHD), predominantly inattentive type documented in this encounter Additional Health Concerns Assessment Noted Time PHQ-9 Depression Total Score: 9 03/02/20 24 8:53 AM CDT documented as of this encounter Care Teams Sew On Operator Relationship Specialty Start Date End Date Shannan Malcolm CNP [address] [place] [address] PCP - General Nurse Practitioner - Family 07/09/22 Shannan Malcolm CNP [address] [place] [address] Assigned PCP 04/07/22 Mattie Tellez APRN FORENSIC SCIENTIST [address] [place] [address] Assigned Behavioral Health Provider 09/22/22 documented as of this encounter
--- OUTSIDE RECORDS SUMMARY | 2024-04-11 17:56 | XMS_ITS | Referral Summary ---
Author Organization [facility] Address [address] [place] [address] Care Team Providers Care Inspector Crystal Name Role Phone Shannan Malcolm CNP Unavailable [phone] Shannan Malcolm CNP Primary Care Provider [phone] Mattie Tellez APRN, CNP Unavailable [phone] Encounters Date Type Department Care Team Description 04/06/2024 7:30 AM CDT Virtual Visit [facility] [address] [place] [phone] Lexi Farnsworth LICSW Generalized anxiety disorder with panic attacks (Primary Dx); MDD (major depressive disorder), recurrent episode, mild (H); Attention deficit hyperactivity disorder (ADHD), predominantly inattentive type; PTSD (post-traumatic stress disorder) 04/06/2024 8:00 AM CDT Virtual Visit [facility] [address] [place] [phone] Mattie Tellez APRN SPLIT AND DRUM ROOM SUPERVISOR Generalized anxiety disorder with panic attacks (Primary Dx); Attention deficit hyperactivity disorder (ADHD), predominantly inattentive type; MDD (major depressive disorder), recurrent episode, moderate (H); PTSD (post-traumatic stress disorder) 03/29/2024 MyC Refill [facility] [address] [phone] Mattie Tellez APRN SPLIT AND DRUM ROOM SUPERVISOR Refill Request 03/29/2024 MyC Refill [address] [place] [phone] Shannan Malcolm CNP Refill Request 03/25/2024 MyC Medical Advice [facility] [address] [place] [phone] Mattie Tellez APRN CNP 03/17/2024 Orders Only [facility] [address] [place] [address] [address] [place] [phone] Mattie Tellez APRN CNP Generalized anxiety disorder with panic attacks (Primary Dx) 03/16/2024 MyC Refill [facility] [address] [place] [address] [address] [place] [phone] Mattie Tellez APRN CNP Refill Request 03/14/2024 MyC Medical Advice [facility] [address] [place] [address] [address] [place] [phone] Mattie Tellez, ROSEMARIE SPLIT AND DRUM ROOM SUPERVISOR Medication Request (Change anti-anxiety me... 03/09/2024 MyC Refill [facility] [address] [place] [phone] Mattie Tellez APRN SPLIT AND DRUM ROOM SUPERVISOR Refill Request (Focalin 5 mg) 03/02/2024 1:00 PM CDT Virtual Visit [address] [place] [phone] Shannan Malcolm, GROVER Infection due to 2019 novel coronavirus (Primary Dx); Mild intermittent asthma without complication 03/02/[address] [place] [phone] Shannan Malcolm CNP 02/26/2024 MyC Medical Advice [facility] [place] [phone] [phone] Naida Hernándezview 02/24/2024 Refill [facility] [address] [place] [phone] Shannan Malcolm, SPLIT AND DRUM ROOM SUPERVISOR Refill Request (Prozac 40) 02/24/2024 MyC Refill [facility] [address] [phone] Mattie Tellez APRN SPLIT AND DRUM ROOM SUPERVISOR Refill Request 02/24/2024 10:30 AM CDT Virtual Visit [facility] [address] [place] [phone] Mattie Tellez APRN CNP Generalized anxiety disorder with panic attacks (Primary Dx); PTSD (post-traumatic stress disorder); Attention deficit hyperactivity disorder (ADHD), predominantly inattentive type; Alcohol use disorder in remission; MDD (major depressive disorder), recurrent episode, mild (H) 02/17/2024 MyC Refill [place] [address] [phone] Mattie Tellez APRN SPLIT AND DRUM ROOM SUPERVISOR Refill Request (dexmethylphenidate (FOCALI... 02/17/2024 MyC Refill [address] [phone] Mattie Tellez APRN SPLIT AND DRUM ROOM SUPERVISOR Refill Request (dexmethylphenidate (FOCALI... 01/27/2024 8:00 AM CDT Virtual Visit [address] [phone] Mattie Tellez APRN CNP Generalized anxiety disorder with panic attacks (Primary Dx); PTSD (post-traumatic stress disorder); Alcohol use disorder in remission; MDD (major depressive disorder), recurrent episode, mild (H); Attention deficit hyperactivity disorder (ADHD), predominantly inattentive type 01/23/2024 MyC Refill [facility] [address] [place] [phone] Mattie Tellez APRN CNP Refill Request (lorazepam (ATIVAN) 0.5 MG ... 01/17/2024 MyC Medical Advice [facility] [address] [place] [phone] Mattie Tellez APRN CNP 01/10/2024 Orders Only [facility] [address] [place], [place] [phone] Mattie Tellez APRN CNP CATHY (generalized anxiety disorder) 01/10/2024 MyC Medical Advice [facility] [address] [place] [phone] Mattie Tellez APRN CNP Medication not working (Diazepam ) from Last 3 Months Allergies Active Allergy Reactions Criticality Noted Date Comments Penicillins 09/04/2005 Rash Medications * This document contains information received from the source organization and may not represent a complete record from that organization. levonorgestrel (MIRENA) 20 MCG/24HR IUDIndications:pl aced 2010 1 each by Intrauterine route once Active FLUoxetine (PROZAC) 20 MG capsuleIndication s:Generalized [...] 60 mg. 90 capsule 02/24/20 24 Active albuterol (PROVENTIL) (2.5 MG/3ML) 0.083% neb solutionIndicatio ns:Mild intermittent asthma without complication Take 1 vial (2.5 mg) by nebulization every 6 hours as needed for shortness of breath, wheezing or cough. 90 mL 03/02/20 24 Active hydrOXYzine HCl (ATARAX) 10 MG tabletIndications :Generalized anxiety disorder with panic attacks Take 1/2 - 1 tablet (5-10 mg) by mouth up to 2 times daily as needed for anxiety or other (insomnia). Monitor for drowsiness. 30 tablet 03/30/20 24 Active clonazePAM (KLONOPIN) 0.5 MG tabletIndications :Generalized anxiety disorder with panic attacks Take 1 tablet (0.5 mg) by mouth daily. May also take 0.5 tablets (0.25 mg) as needed for anxiety. 45 tablet 04/08/20 24 Active dexmethylphenidat e (FOCALIN XR) 10 MG 24 hr capsule Take 1 capsule (10 mg) by mouth every morning. With Focalin XR 5 mg for total dose of 15 mg. 30 capsule 04/17/20 24 Active dexmethylphenidat e (FOCALIN XR) 5 MG 24 hr capsule Take 1 capsule (5 mg) by mouth every morning. With Focalin XR 10 mg for total dose of 15 mg. 30 capsule 04/17/20 24 Active dexmethylphenidat e (FOCALIN) 5 MG tabletIndications :Attention deficit hyperactivity disorder (ADHD), predominantly inattentive type Take 1 tablet (5 mg) by mouth daily. as needed in the afternoon for ADHD. 30 tablet 04/06/20 24 Active traZODone (DESYREL) 50 MG tabletIndications :Generalized anxiety disorder with panic attacks,MDD (major depressive disorder), recurrent episode, moderate (H),PTSD (post-traumatic stress disorder) Take 0.5-1 tablets (25-50 mg) by mouth at bedtime. May increase to 2 tablets (100 mg) if needed and tolerated. 60 tablet 1 04/06/20 24 Active dexmethylphenidat e (FOCALIN XR) 10 [...] 24 024 Discontin ued(Reord er (No AVS)) cloNIDine (CATAPRES) 0.1 MG tabletIndications :PTSD (post-traumatic stress disorder) Take 1 tablet (0.1 mg) by mouth at bedtime. May also take 1 tablet (0.1 mg) daily as needed (anxiety). 60 tablet 02/24/20 24 024 Discontin ued(Side effects) LORazepam (ATIVAN) 0.5 MG tabletIndications :Generalized anxiety disorder with panic attacks Take 1 tablet (0.5 mg) by mouth 2 times daily as needed (panic). to last 30 days. 60 tablet 02/25/20 24 024 Discontin ued(Alter lele therapy) mirtazapine (REMERON) 7.5 MG tabletIndications :Generalized anxiety disorder with panic attacks Take 1 tablet (7.5 mg) by mouth at bedtime. 03/02/20 24 024 Discontin ued(Alter lele therapy) dexmethylphenidat e (FOCALIN) 5 MG tabletIndications :Attention deficit hyperactivity disorder (ADHD), predominantly inattentive type Take 1 tablet (5 mg) by mouth daily. as needed in the afternoon for ADHD. 30 tablet 03/09/20 24 024 Discontin ued(Reord er (No AVS)) dexmethylphenidat e (FOCALIN XR) 10 MG 24 hr capsuleIndication s:Attention deficit hyperactivity disorder (ADHD), unspecified ADHD type Take 1 capsule (10 mg) by mouth every morning. With Focalin XR 5 mg for total dose of 15 mg. 30 capsule 03/17/20 24 024 Discontin ued(Reord er (No AVS)) dexmethylphenidat e (FOCALIN XR) 5 MG 24 hr capsuleIndication s:Attention deficit hyperactivity disorder (ADHD), unspecified ADHD type Take 1 capsule (5 mg) by mouth every morning. With Focalin XR 10 mg for total dose of 15 mg. 30 capsule 03/17/20 24 024 Discontin ued(Reord er (No AVS)) clonazePAM (KLONOPIN) 0.5 MG tabletIndications :Generalized anxiety disorder with panic attacks Take 0.5 tablets (0.25 mg) by mouth 2 times daily as needed for anxiety. 15 tablets for 30 days. No early refills. 15 tablet 03/25/20 24 024 Discontin ued(Reord er (No AVS)) [...] Patient is followed by Azra Shine NP, BRIM MOLDER for ongoing prescription of a controlled medicine. 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 Gender Identity Female 02/08/2022 7:17 AM [...] 01/27/2024 7:56 AM CDT Plan of Treatment Not on file Procedures Procedure Name Priority Date/Time Associated Diagnosis [...] includes age and gender (Octavio et al., NEJM, DOI: 10.1056/UYCBjl8666197) Blood BLOOD SPECIMEN / Unknown Venipuncture / Unknown 02/16/2022 10:35 AM CDT 02/16/2022 10:35 AM CDT us Shannan Malcolm CNP LAB - BLOOD ORDERABLES Fi nal Result [facility] [address] Lab (no room number, 1st floor of clinic) [place] [address], [facility] [phone] * HIV Antigen Antibody Combo (10/14/2017 10:05 AM CDT) HIV Antigen Antibody Combo Nonreactive NR^Nonrea ctive 10/15/2017 11:16 AM CDT [facility] Comment:HIV-1 p24 Ag & HIV-1 /HIV-2 Ab Not Detected Blood specimen (specimen) 10/14/2017 10:05 AM CDT 10/14/2017 10:06 AM CDT us Noreen Buitrago PA-C LAB - BLOOD ORDERABLES Fi nal Result [facility] [address] [place] [address] * Albumin Random Urine Quantitative with Creat Ratio (10/14/2017 10:04 AM CDT) Creatinine Urine 34 mg/dL 10/14/2017 6:08 PM CDT [facility] Albumin Urine mg/L <5 mg/L 10/14/2017 6:13 PM CDT [facility] Albumin Urine mg/g Cr Unable to calculate due to low value 0 - 25 mg/g Cr 10/14/2017 6:13 PM T [facility] Urine specimen (specimen) 10/14/2017 10:04 AM CDT 10/14/2017 10:05 AM CDT us Noreen Buitrago PA-C LAB - URINE ORDERABLES Fi nal Result [facility] [address] [place] [address], [facility] [phone] * HPV High Risk Types DNA Cervical (10/14/2017 9:54 AM CDT) HPV Source [facility] 10/14/2017 9:41 AM CDT [facility] HPV 16 DNA Negative NEG^Nega tive [...] and its performance characteristics determined by the [facility], Molecular Diagnostics Laboratory. It has not [...] AM CDT [facility] Comment:[id number] Cervical Cells 10/14/2017 9: 54 AM CDT 10/14/2017 10:07 AM CDT Noreen Buitrago PA-C LAB - BLOOD ORDERABLES Fi nal Result [facility] [address] [place] [address] [address] * Pap imaged thin layer screen with HPV - recommended age 30 - 65 years (select HPV order below) (10/14/2017 9:40 AM CDT) PAP NIL COPATH Copath Report Patient Name: SKYLAR AKERS MR#: [id number] Specimen #: [id number] Collected: 10/14/2017 Received: 10/14/2017 Reported: 10/16/2017 10:22 [...] RONAK Garcia (ASCP) Processed and screened at [facility], [facility] CLINICAL HISTORY: Currently not having periods, Intra-Uterine Device, Previous normal pap Date of Last Pap: 10/09/2016, Papanicolaou Test Limitations: ??Cervical cytology is a screening test with limited sensitivity; regular screening is critical for cancer prevention; Pap tests are primarily effective for the diagnosis/preventi on of squamous cell carcinoma, not adenocarcinomas or other cancers. TESTING LAB LOCATION: [address] ??[phone] COLLECTION SITE: Client: ??[facility] Location: [facility] (R) COPATH Cytologic material (specimen) 10/14/2017 9:40 AM CDT 10/14/2017 3:39 PM CDT Noreen Buitrago PA-C LAB - OPTIME CLINICAL SPE GENO Final Result COPATH from Last 3 Months or Most Recently Relevant to Health Maintenance Insurance Crypt[employer] [email or web address] [employer] Advance Directives For more information, please contact: [phone] * Full Code (Latest Code Status on File) Date Activated Date Inactivated Comments 11/14/2021 3:00 AM 11/17/2021 3:53 PM All basic and advanced life-sustaining interventions are performed as appropriate Question Answer Comments Code status determined by: Discussion with patie nt/ legal decision maker Care Teams Inspector Crystal Relationship Specialty Start Date End Date Shannan Malcolm CNP [address] [place] [address] [phone] PCP - General Nurse Practitioner - Family 07/09/22 Shannan Malcolm CNP [address] [place] [address] [phone] Assigned PCP 04/07/22 Mattie Tellez APRN SPLIT AND DRUM ROOM SUPERVISOR [address] [place] [address] Assigned Behavioral Health Provider 09/22/22
--- OUTSIDE RECORDS SUMMARY | 2024-04-11 17:56 | XMS_ITS | Encounter Summary ---
Author Organization [facility] Address [address] [place] [address] Care Team Providers Care Network Architect Manager Name Role Phone Shannan Malcolm CNP Unavailable [phone] Shannan Malcolm CNP Primary Care Provider [phone] Mattie Tellez APRN ELEVATOR ERECTOR HELPER Unavailable [phone] Reason for Visit * Reason Onset Date Comments Refill Request 03/29/2024 Encounter Details Date Type Department Care Team (Late st Contact Info) Description 03/29/2024 MyC Refill [address] [phone] Shannan Malcolm, ELEVATOR ERECTOR HELPER [address] [place], [place] [phone] Refill Request Social History Tobacco Use Types [...] on file Legal Sex Female 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 Looks like it has been discontinued * Telephone Encounter - Heidy Robertson RN [...] documented as of this encounter Care Teams Network Architect Manager Relationship Specialty Start Date End Date Shannan Malcolm CNP [address] [place] [address] [phone] PCP - General Nurse Practitioner - Family 07/09/22 Shannan Malcolm CNP [address] [place] [address] [id number] Assigned PCP 04/07/22 Mattie Tellez APRN CNP [address] [place] [address] Assigned Behavioral Health Provider 09/22/22 documented as of this encounter
--- OUTSIDE RECORDS SUMMARY | 2024-04-11 17:56 | XMS_ITS | Encounter Summary ---
Author Organization [place] Address [facility] [place] [address] Care Team Providers Care Garage Mechanic Name Role Phone Shannan Malcolm CNP Unavailable [phone] Shannan Malcolm CNP Primary Care Provider [phone] Mattie Tellez APRN BOND WRITER Unavailable [phone] Encounter Details Date Type Department Care Team (Late st Contact Info) Description 03/17/2024 Orders Only [facility] Mental Health & [facility] [address] [place] [address] Mattie Tellez APRN BOND WRITER [address] [facility] [address] [place], [place] [id number] Generalized anxiety disorder with panic attacks (Primary [...] on file Legal Sex Female 3:13 AM FIBER PICKER Gender Identity Female 02/08/2022 7:17 AM CDT Sexual Orientation Choose not to disclose 2021 7:17 AM CDT documented as of this encounter Plan of Treatment Not on file documented as of this encounter Visit Diagnoses Diagnosis Generalized anxiety disorder with panic attacks- Primary documented in this encounter Additional Health Concerns Assessment Noted Time PHQ-9 Depression Total Score: 9 03/02/20 24 8:53 AM CDT documented as of this encounter Care Teams Garage Mechanic Relationship Specialty Start Date End Date Shannan Malcolm CNP [address] [place] [address] [id number] PCP - General Nurse Practitioner - Family 07/09/22 Shannan Malcolm CNP [address] [place] [address] [id number] Assigned PCP 04/07/22 Mattie Tellez APRN BOND WRITER [address] [place] [id number] Assigned Behavioral Health Provider 09/22/22 documented as of this encounter
--- OUTSIDE RECORDS SUMMARY | 2024-04-11 17:56 | XMS_ITS | Encounter Summary ---
Author Organization [place] Address [address] [place] [id number] Care Team Providers Care Network Field Engineer Name Role Phone Shannan Malcolm CNP Unavailable [phone] Shannan Malcolm CNP Primary Care Provider [phone] Mattie Tellez APRN PLASTICS PRODUCTION MACHINE OPERATOR Unavailable [phone] Reason for Visit * Reason Onset Date Comments Refill Request 03/29/2024 Encounter Details Date Type Department Care Team (Late st Contact Info) Description 03/29/2024 MyC Refill [facility] [address] [place] [address] Mattie Tellez, [place] PLASTICS PRODUCTION MACHINE OPERATOR [address] [place] [address] Refill Request Social History Tobacco [...] file Legal Sex Female 3:13 AM DIRECTOR OF VITAL STATISTICS Gender Identity Female 02/08/2022 7:17 AM CDT [...] No [x]Medication refilled per ???Medication Refill in [facility]?? policy. []Medication unable to be refilled by [...] primary care provider. Referral placed for DBT. [facility] will call you to coordinate your care as prescribed by your provider. If you don't hear from a traveling representative within 2 business days, please call [phone]. Safety plan reviewed. To the Emergency Department as needed or call after hours crisis line at [phone] or [phone]. [place] Crisis Text Line. Text [place] to [phone] or Suicide LifeLine Chat: [email or web address]/chat Schedule an appointment with me and Behavioral Health Sales Team Member in 4 weeks Any medication(s) require lab monitoring? No documented in this encounter Plan of Treatment Not on file documented as of this encounter Visit Diagnoses Diagnosis Generalized anxiety disorder with panic attacks documented in this encounter Additional Health Concerns Assessment Noted Time PHQ-9 Depression Total Score: 9 03/02/20 24 8:53 AM CDT documented as of this encounter Care Teams Network Field Engineer Relationship Specialty Start Date End Date Shannan Malcolm CNP [address] [place] [address] [phone] PCP - General Nurse Practitioner - Family 07/09/22 Shannan Malcolm CNP [address] [place] [address] [phone] Assigned PCP 04/07/22 Mattie Tellez APRN PLASTICS PRODUCTION MACHINE OPERATOR [address] [place] [id number] Assigned Behavioral Health Provider 09/22/22 documented as of this encounter
--- OUTSIDE RECORDS SUMMARY | 2024-04-11 17:56 | XMS_ITS | Encounter Summary ---
Author Organization [facility] Address [address] [place] [address] Care Team Providers Care Telephone Interceptor Operator Name Role Phone Shannan Malcolm CNP Unavailable [phone] Shannan Malcolm CNP Primary Care Provider [phone] Mattie Tellez APRN HOSPITAL INSURANCE REPRESENTATIVE Unavailable [phone] Reason for Visit * Reason Comments RECHECK Encounter Details Date Type Department Care Team (Latest Contact Info) Description 04/06/2024 7:30 AM CDT Virtual Visit [facility] [place] [address] [place] [address] Lexi Farnsworth, [facility] [address] [place], [place] [address] Generalized anxiety disorder with panic attacks (Primary Dx); MDD (major depressive disorder), recurrent episode, mild (H); Attention deficit hyperactivity disorder (ADHD), predominantly inattentive type; PTSD (post-traumatic stress disorder) Social History Tobacco Use Types Packs/Day [...] file Legal Sex Female 3:13 AM MEDICAL DEVICE SALES Gender Identity Female 02/08/2022 7:17 AM CDT Sexual Orientation Choose not to disclose 2021 7:17 AM CDT documented as of this encounter Progress Notes * Lexi Farnsworth, METEOROLOGY INSTRUCTOR - 04/06/2024 7:30 AM CDT Images from the original note were not included. [facility] [place] PATIENT'S NAME: Skylar Santillan PREFERRED NAME: Melisa PRONOUNS: : 1985 AD[address]ESS: [address] [place] [address]. NUMBER: [id number] DATE OF SERVICE: 04/06/24 START TIME: 7:37 am END TIME: 8:00 am PREFERRED PHONE: [phone] May we leave a program related message: Yes EMERGENCY CONTACT: was obtained . SERVICE MODALITY: Video Visit: Provider verified identity through the following two step process. Patient provided: Patient and Patient address Telemedicine Visit: The patient's condition can be safely assessed and treated via synchronous audio and visual telemedicine encounter. Reason for Telemedicine Visit: Patient has requested telehealth visit Originating Site (Patient Location): Patient's home Distant Site (Provider Location): [facility] Consent: The patient/guardian has verbally consented to: the potential risks and benefits of telemedicine (video visit) versus in person care; bill my insurance or make self-payment for services provided; and responsibility for payment of non-covered services. Patient would like the video invitation sent by: My Chart Mode of Communication: Video Conference via [facility] Distant Location (Provider): On-site As the provider I attest to compliance with applicable laws and regulations related to telemedicine. UNIVERSAL ADULT Mental Health DIAGNOSTIC ASSESSMENT Identifying Information: Patient is a 38 year old, (Patient-Rptd) ; ; individual. Patient was referred for an assessment by (Patient-Rptd) current Behavioral Health Provider. Patient attendedthe session alone. Chief Complaint: The reason for seeking services at this time is: (Patient-Rptd) anxiety depression ptsd. The problem(s) began (Patient-Rptd) 06/11/99. MH update: pt reports doing ok with continued anxiety. Anxiety causes her to isolate self. Does not like going to work, going to grocery store, or being socially. Hydroxyzine and Clonidine makes her very tired when she takes it, so she does not take during the day time. Continues to have panic attacks - feels very internal and feeling unsafe. Has been feeling more down and emotional as well. All has been very frustrating to her as she wants to live a normal life. Attributes much of this stemming back to childhood trauma. Stresses: general day to day things causes a lot of stress, dtr of 13yr (struggles with her own MH)- wanting to be able to do things with her, significant other continues to drink, work and finances. Appetite: unremarkable, binging more in the evening, wont eat with high anxiety, struggles with motivation to make meals for self Sleep: unremarkable, ok not sleeping through whole night - frequent waking. Hx with issues of sleep. Therapy: not in therapy right now, work getting in the way to be able to attend sessions. Has has positive experience with therapy in the past. Work requires a lot out of her. Pt will do butterfly tapping and mantras. EMERALD: 2 years of sobriety from etoh at the end of the month. Insight of self medicating, AA groups online and some occasional in person attendance. Preg: na Most important: continued high anxiety, feeling in a bit of a slump (low motivation) - feeling muchmore emotional, very lonely and sad. Goals: decrease anxiety, improve depressive sx Patient has attempted to resolve these concerns in the past through therapy and medications . Social/Family History: Patient reported they grew up in (Patient-Rptd) [facility] They were raised by (Patient-Rptd) biological mother . Parents (Patient-Rptd) one or both remarried. Patient reported that their childhood was difficult. Patient described their current relationships with family of origin as fair. The patient describes their cultural background as (Patient-Rptd) ; ; . Cultural influences and impact on patient's life structure, values, norms, and healthcare: (Patient-Rptd) grew up really poor. Contextual influences on patient's health include: Contextual Factors: Individual Factors management of MH . These factors will be addressed in the Preliminary Treatment plan. Patient identified their preferred language to be (Patient-Rptd) Burmese. Patient reported they does not need the assistance of an medical interpreter or other support involved in therapy. Patient reported had no significant delays in developmental tasks. Patient's highest education level was (Patient-Rptd) some college . Patient identified the following learning problems: none reported. Modifications will not be used to assist communication in therapy. Patient reports they are able to understand written materials. Patient's current relationship status is (Patient-Rptd) has a partner or significant other for since high school. Patient identified their sexual orientation as (Patient-Rptd) heterosexual. Patient reported having (Patient- Rptd) 1 child(nguyễn). Patient identified (Patient-Rptd) partner; siblings; pets as part of their support system. Patient identified the quality of these relationships as (Patient-Rptd) stable and meaningful, . Patient's current living/housing situation involves (Patient-Rptd) other. The immediate members of family and household include (Patient-Rptd) Randy, (Patient- Rptd) 39,(Patient-Rptd) spouse and they report that housing is stable. Patient is currently (Patient-Rptd) employed fulltime. Patient reports their finances are obtained through (Patient-Rptd) employment; spouse. Patient (Patient-Rptd) does identify finances as a current stressor. Patient reported that they (Patient-Rptd) have been involved with the legal system. (Patient-Rptd) CPS case is closed for almost 2 years now . Patient (Patient-Rptd) does report being under probation/ parole/ jurisdiction. They are not under any current court jurisdiction. . Patient's Strengths and Limitations: Patient identified the following strengths or resources that will help them succeed in treatment: commitment to health and well being, friends / good social support, family support, and sober supportgroup / recovery support . Things that may interfere with the patient's success in treatment include: MH . Assessments: The following assessments were completed by patient for this visit: PHQ2: 02/24/2024 10:17 AM 01/27/2024 7:57 AM 11/14/2023 9:46 AM 09/27/2023 10:03 AM 09/20/2022 6:10 AM 09/13/2022 1:19 PM 07/16/2022 4:49 PM PHQ-2 (??1999 [employer]) Q1: Little interest or pleasure in doing things 1 0 0 1 1 1 Q2: Feeling down, depressed or hopeless 0 0 0 0 1 1 PHQ-2 Score 1 0 0 1 2 2 Q1: Little interest or pleasure in doing things Several days Q2: Feeling down, depressed or hopeless Several days PHQ-2 Score 2 Incomplete Patient-reported PHQ9: 07/16/2022 4:46 PM 07/25/2022 11:31 AM 09/04/2022 12:29 PM 12/10/2022 7:53 AM 01/01/2024 10:47 AM 03/02/2024 8:53 AM 04/05/2024 5:12 PM PHQ-9 SCORE PHQ-9 Total Score MyChart 16 (Moderately severe depression) 16 (Moderately severe depression) 25 (Severe depression) 4 (Minimal depression) 9 (Mild depression) 14 (Moderate depression) PHQ-9 Total Score 16 25 4 6 9 14 Patient-reported GAD2: 06/25/2023 11:03 AM 08/28/2023 9:41 AM 10/18/2023 7:50 AM 12/26/2023 10:19 AM 01/22/2024 10:37 AM 02/24/2024 8:21 AM 04/01/2024 8:59 AM CATHY-2 Feeling nervous, anxious, or on edge 1 2 1 1 1 3 2 Not being able to stop or control worrying 1 1 1 1 1 3 3 CATHY-2 Total Score 2 3 2 2 2 6 5 Patient-reported GAD7: 03/07/2023 2:04 PM 04/04/2023 10:22 AM 05/30/2023 1:39 PM 08/28/2023 9:41 AM 01/01/2024 10:47 AM 02/24/2024 8:21 AM 04/01/2024 8:59 AM CATHY-7 SCORE Total Score 5 (mild anxiety) 9 (mild anxiety) 9 (mild anxiety) 11 (moderate anxiety) 13 (moderate anxiety) 14 (moderate anxiety) Total Score 5 9 9 11 13 13 14 Patient-reported CAGE-AID: No data to display PROMIS 10-Global Health (all questions and answers displayed): 09/13/2022 9:29 AM 01/08/2023 8:12 AM 04/04/2023 10:23 AM 08/28/2023 9:43 AM 12/26/2023 10:20 AM 02/24/2024 10:17 AM 04/05/2024 5:31 PM PROMIS 10 In general, would you say your health is: Fair Good Good Good Fair In general, would you say your quality of life is: Good Good Fair Very good Very good In general, how would you rate your physical health? Good Fair Fair Fair Poor In general, how would you rate your mental health, including your mood and your ability to think? Fair Fair Good Very good Fair In general, how would you rate your satisfaction with your social activities and relationships? Poor Very good Fair Fair Fair In general, please rate how well you carry out your usual social activities and roles Fair Fair Good Very good Fair To what extent are you able to carry out your everyday physical activities such as walking, climbing stairs, carrying groceries, or moving a chair? Moderately Completely Completely Completely Mostly In the past 7 days, how often have you been bothered by emotional problems such as feeling anxious,depressed, or irritable? Often Often Often Sometimes Always In the past 7 days, how would you rate your fatigue on average? Very severe Severe Very severe Moderate Moderate In the past 7 days, how would you rate your pain on average, where 0 means no pain, and 10 means worst imaginable pain? 6 3 5 4 4 In general, would you say your health is: 2 3 3 3 3 2 In general, would you say your quality of life is: 3 3 2 4 3 4 In general, how would you rate your physical health? 3 2 2 2 2 1 In general, how would you rate your mental health, including your mood and your ability to think? 22 3 4 1 2 In general, how would you rate your satisfaction with your social activities and relationships? 1 42 2 3 2 In general, please rate how well you carry out your usual social activities and roles. (This includes activities at home, at work and in your community, and responsibilities as a parent, child, spouse, employee, friend, etc.) 2 2 3 4 1 2 To what extent are you able to carry out your everyday physical activities such as walking, climbing stairs, carrying groceries, or moving a chair? 3 5 5 5 4 4 In the past 7 days, how often have you been bothered by emotional problems such as feeling anxious,depressed, or irritable? 4 4 4 3 4 5 In the past 7 days, how would you rate your fatigue on average? 5 4 5 3 5 3 In the past 7 days, how would you rate your pain on average, where 0 means no pain, and 10 means worst imaginable pain? 6 3 5 4 4 4 Global Mental Health Score 8 11 9 13 9 9 Global Physical Health Score 10 13 11 13 10 11 PROMIS TOTAL - SUBSCORES 18 24 20 26 19 20 Information is confidential and restricted. Go to Review Flowsheets to unlock data. Patient-reported PROMIS 10-Global Health (only subscores and total score): 09/13/2022 9:29 AM 01/08/2023 8:12 AM 04/04/2023 10:23 AM 08/28/2023 9:43 AM 12/26/2023 10:20 AM 02/24/2024 10:17 AM 04/05/2024 5:31 PM PROMIS-10 Scores Only Global Mental Health Score 8 11 9 13 9 9 Global Physical Health Score 10 13 11 13 10 11 PROMIS TOTAL - SUBSCORES 18 24 20 26 19 20 Information is confidential and restricted. Go to Review Flowsheets to unlock data. Patient-reported [place] Suicide Severity Rating Scale (Lifetime/Recent) 04/06/2024 7:55 AM [place] Suicide Severity Rating (Lifetime/Recent) Q1 Wish to be (Lifetime) N Q2 Non-Specific Active Suicidal Thoughts (Lifetime) N Actual Attempt (Lifetime) N Has subject engaged in non-suicidal self-injurious behavior? (Lifetime) N Interrupted Attempts (Lifetime) N Aborted or Self-Interrupted Attempt (Lifetime) N Preparatory Acts or Behavior (Lifetime) N Calculated C-SSRS Risk Score (Lifetime/Recent) No Risk Indicated Personal and Family Medical History: Patient (Patient-Rptd) does report a family history of mental health concerns. Patient reports family history includes Depression (age of onset: 14) in her sister; Depression (age of onset: 40) in her mother; Heart Disease (age of onset: 58) in her father; Obesity in her brother; Obesity (age of onset: 15) in her mother; Prostate Cancer (age of onset: 87) in her paternal grandfather; Unknown/Adopted in her father.. Patient does report Mental Health Diagnosis and/or Treatment. Patient reported the following previous diagnoses which include(s): (Patient-Rptd) ADHD; an anxiety disorder; depression; PTSD . Patient reported symptoms began unknown. Patient has received mental health services in the past: (Patient-Rptd) day treatment; psychiatry . Psychiatric Hospitalizations: (Patient-Rptd) [facility]; [facility] when (Patient-Rptd) many times over the years, (Patient-Rptd) twice between 2018 and 2019, , , , , , , , , . Patient denies a history of civil commitment. Currently, patient (Patient-Rptd) none is receiving other mental health services. These include none. Patient has had a physical exam to rule out medical causes for current symptoms. Date of last physical exam was within the past year. Symptoms have developed since last physical exam and client was encouraged to follow up with PCP. . The patient has a [facility] Primary Care Provider, who is named Shannan Malcolm.. Patient reports no current medical concerns. Patient denies any issues with pain.. There are not significant appetite / nutritional concerns / weight changes. Patient does not report a history of head injury / trauma / cognitive impairment. Current Outpatient Medications Medication Sig Dispense Refill albuterol (PROVENTIL) (2.5 MG/3ML) 0.083% neb solution Take 1 vial (2.5 mg) by nebulization every 6hours as needed for shortness of breath, wheezing or cough. 90 mL 0 [START ON 04/08/2024] clonazePAM (KLONOPIN) 0.5 MG tablet Take 1 tablet (0.5 mg) by mouth daily. May also take 0.5 tablets (0.25 mg) as needed for anxiety. 45 tablet 0 [START ON 04/17/2024] dexmethylphenidate (FOCALIN XR) 10 MG 24 hr capsule Take 1 capsule (10 mg) by mouth every morning. With Focalin XR 5 mg for total dose of 15 mg. 30 capsule 0 [START ON 04/17/2024] dexmethylphenidate (FOCALIN XR) 5 MG 24 hr [...] IUD 1 each by Intrauterine route once traZODone (DESYREL) 50 MG tablet Take 0.5-1 tablets (25-50 mg) by mouth at bedtime. May increase to2 tablets (100 mg) if needed and tolerated. 60 tablet 1 No current facility-administered medications for this visit. Medication Adherence: Patient reports (Patient-Rptd) taking. taking psychiatric medications as prescribed. Patient Allergies: Allergies Allergen Reactions Pcn [Penicillins] Rash Medical History: Past Medical History: Diagnosis Date Allergy, unspecified not elsewhere classified Anxiety ASCUS on Pap smear 02/2011 see problem list Asthma Mild intermittent asthma exercise related Current Mental Status Exam: Appearance: Appropriate Eye Contact: Good Psychomotor: Normal Gait / station: no problem Attitude / Demeanor: Cooperative Speech Rate / Production: Normal/ Responsive Volume: Normal volume Language: intact Mood: Anxious Depressed Affect: Appropriate Thought Content: Clear Thought Process: Coherent Logical Associations: No loosening of associations Insight: Fair Judgment: Intact Orientation: All Attention/concentration: Good Substance Use: Patient did report a family history of substance use concerns; see medical history section for details. Patient has received chemical dependency treatment in the past at 2 years ago - cannot recall .Patient has not ever been to detox. Patient is not currently receiving any chemical dependency treatment. Substance History of use Age of first use Date of last use Pattern and duration of use (include amounts and frequency) Alcohol (Patient-Rptd) used in the past (Patient-Rptd) 14 (Patient-Rptd) 04/09/22 REPORTS SUBSTANCE USE: N/A sober Cannabis (Patient-Rptd) currently use (Patient-Rptd) 13 (Patient-Rptd) 03/21/24 REPORTS SUBSTANCE USE: reports using substance 1 times per month and has 2.5/ 5 mg at a time. Patient reports heaviest use is current use. Amphetamines (Patient-Rptd) never used REPORTS SUBSTANCE USE: N/A Cocaine/crack (Patient-Rptd) used in the past (Patient-Rptd) 19 (Patient-Rptd) 06/21/99 REPORTS SUBSTANCE USE: N/A Hallucinogens (Patient-Rptd) never used REPORTS SUBSTANCE USE: N/A Inhalants (Patient-Rptd) never used REPORTS SUBSTANCE USE: N/A Heroin (Patient-Rptd) used in the past (Patient-Rptd) 24 (Patient-Rptd) 06/14/16 REPORTS SUBSTANCE USE: N/A Other Opiates (Patient-Rptd) never used REPORTS SUBSTANCE USE: N/A Benzodiazepine (Patient-Rptd) never used REPORTS SUBSTANCE USE: N/A Barbiturates (Patient-Rptd) never used REPORTS SUBSTANCE USE: N/A Over the counter meds (Patient-Rptd) currently use (Patient-Rptd) 7 (Patient- Rptd) 03/19/24 REPORTSSUBSTANCE USE: N/A Caffeine (Patient-Rptd) currently use (Patient-Rptd) 5 REPORTS SUBSTANCE USE: N/A very minimal use due to how it makes her feel Nicotine (Patient-Rptd) never used REPORTS SUBSTANCE USE: N/A Other substances not listed above: Identify: (Patient-Rptd) never used REPORTS SUBSTANCE USE: N/A Patient reported the following problems as a result of their substance use: (Patient-Rptd) academic; child custody; DUI; family problems; financial problems; legal issues; occupational/vocational problems; relationship problems; sexual issues. Substance Use: No symptoms Based on the CAGE score of 0 and clinical interview there are not indications of drug or alcohol abuse. Significant Losses / Trauma / Abuse / Neglect Issues: Patient (Patient-Rptd) did not serve in the . There are indications or report of significant loss, trauma, abuse or neglect issues related to: are indications or report of significant loss, trauma, abuse or neglect issues related to explore further on childhood trauma at pts discretion Concerns for possible neglect are not present. Safety Assessment: Patient denies current homicidal ideation and behaviors. Patient denies current self-injurious ideation and behaviors. Patient denied risk behaviors associated with substance use. Patient denies any high risk behaviors associated with mental health symptoms. Patient reports the following current concerns for their personal safety: None. Patient reports there (Patient-Rptd) are not firearms in the house. There are no firearms in the home.. History of Safety Concerns: Patient denied a history of homicidal ideation. Patient denied a history of personal safety concerns. Patient denied a history of assaultive behaviors. Patient denied a history of sexual assault behaviors. Patient denied a history of risk behaviors associated with substance use. Patient denies any history of high risk behaviors associated with mental health symptoms. Patient reports the following protective factors: (Patient-Rptd) forward or future oriented thinking; dedication to family or friends; regular physical activity; sense of belonging; secure attachment; abstinence from substances; adherence with prescribed medication; daily obligations; effective problem solving skills; commitment to well being; sense of meaning; positive social skills; access to [facility] clinical interventions and pets Review of Symptoms per patient report: Depression: little interest / pleasure, sleep changes (insomnia or hypersomnia), fatigue of loss ofenergy, and difficulty concentrating or indecisiveness Sonja: No Symptoms Psychosis: No Symptoms Anxiety: excessive worry, difficult to control, restlessness / feeling keyed up, easily fatigued, difficulty concentrating or mind going blank, irritability, muscle tension, and sleep disturbances (difficulty falling / staying asleep, or restless / unsatisfying) Panic: Hx of panic attacks Post Traumatic Stress Disorder: exaggerated negative beliefs about self, others, world and negativeemotional state, problems concentrating and sleep disturbances, nightmares. Eating Disorder: No Symptoms ADD / ADHD: Hx of ADHD Conduct Disorder: No symptoms Autism Spectrum Disorder: na Obsessive Compulsive Disorder: na Patient reports the following compulsive behaviors and treatment history: na . Diagnostic Criteria: Generalized Anxiety Disorder A. Excessive anxiety and worry about a number of events or activities (such as work or school performance). B. The person finds it difficult to control the worry. C. Select 3 or more symptoms (required for diagnosis). Only one item is required in children. - Restlessness or feeling keyed up or on edge. - Being easily fatigued. - Difficulty concentrating or mind going blank. - Irritability. - Muscle tension. - Sleep disturbance (difficulty falling or staying asleep, or restless unsatisfying sleep). D. The focus of the anxiety and worry is not confined to features of an [place] disorder. E. The anxiety, worry, or physical symptoms cause clinically significant distress or impairment in social, occupational, or other important areas of functioning. F. The disturbance is not due to the direct physiological effects of a substance (e.g., a drug of abuse, a medication) or a general medical condition (e.g., hyperthyroidism) and does not occur exclusively during a Mood Disorder, a Psychotic Disorder, or a Pervasive Developmental Disorder. Panic Disorder, A.Recurrent unexpected panic attacks. A panic attack is an abrupt surge of intense fear or intense discomfort that reaches a peak within minutes, and during which time four (or more) of the following symptoms occur: Chest pain , Feeling dizzy, unsteady, light-headed, or faint, Fear of dying, Fear of losing control or going crazy, Nausea or abdominal distress, and Increased heartrate/ Palpitations, B.At least one of the attacks has been followed by 1 month (or more) of Persistent concern or worry about additional panic attacks or their consequences, C.The disturbance is not attributable to the physiological effects of a substance (e.g., a drug of abuse, a medication) or another medical condition (e.g., hyperthyroidism, cardiopulmonary disorders)., and D.The disturbance is not better explained by another mental disorder Major Depressive Disorder A) Recurrent episode(s) - symptoms have been present during the same 2-week period and represent a change from previous functioning 5 or more symptoms (required for diagnosis) - Depressed mood. Note: In children and adolescents, can be irritable mood. - Diminished interest or pleasure in all, or almost all, activities. - Significant weight gaindecrease in appetite. - Decreased sleep. - Fatigue or loss of energy. - Feelings of worthlessness or inappropriate and excessive guilt. - Diminished ability to think or concentrate, or indecisiveness. B) The symptoms cause clinically significant distress or impairment in social, occupational, or other important areas of functioning C) The episode is not attributable to the physiological effects of a substance or to another medical condition D) The occurence of major depressive episode is not better explained by other thought / psychotic disorders Functional Status: Patient reports the following functional impairments: childcare / parenting, health maintenance, management of the household and or completion of tasks, organization, relationship(s), self-care, social interactions, and work / vocational responsibilities. Nonprogrammatic care: Patient is requesting basic services to address current mental health concerns. Clinical Summary: 1. Psychosocial, Cultural and Contextual Factors: exaggerated negative beliefs about self, others, world and negative emotional state, problems concentrating and sleep disturbances, nightmares. . 2. Principal DSM5 Diagnoses (Sustained by DSM5 Criteria Listed Above): 296.31 (F33.0) Major Depressive Disorder, Recurrent Episode, Mild _ 300.01 (F41.0) Panic Disorder 300.02 (F41.1) Generalized Anxiety Disorder. 3. 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 4. Provisional Diagnosis: . 5. Prognosis: Expect Improvement. 6. Likely consequences of symptoms if not treated: Continued or worsening of sx. 7. Client strengths include: open to learning, open to suggestions / feedback, responsible parent, support of family, friends and providers, wants to learn, willing to ask questions, willing to relate to others, and work history . Recommendations: 1. Plan for Safety and Risk Management: Safety and Risk: Recommended that patient call 911 or go to the local ED should there be a change in any of these risk factors. Report to child / adult protection services was NA. 2. Patient's identified mental health concerns with a cultural influence will be addressed by therapy and psychiatry . 3. Initial Treatment will focus on: Depressed Mood - see above Anxiety - see above . 4. Resources/Service Plan: Ruffler services are not indicated. Modifications to assist communication are not indicated. Additional disability accommodations are not indicated. 5. Collaboration: Collaboration / coordination of treatment will be initiated with the following support professionals: psychiatry. 6. Referrals: The following referral(s) will be initiated: will continue to assess . A Release of Information has been obtained for the following: na . Clinical Substantiation/medical necessity for the above recommendations: na. 7. EMERALD: EMERALD: Discussed the general effects of drugs and alcohol on health and well- being. Provider gave patient printed information about the effects of chemical use on their health and well being. Recommendations: maintain sobriety . 8. Records: These were not available for review at time of assessment. Information in this assessment was obtained from the medical record and provided by patient who is a good historian. Patient will have open access to their mental health medical record. 9. Interactive Complexity: No 10. Safety Plan: Provider Name/ Credentials: Lexi Farnsworth [facility] April 06, 2024 Answers submitted by the patient for this visit: Patient Health Questionnaire (G7) (Submitted on 04/01/2024) CATHY 7 TOTAL SCORE: 14 documented in this encounter Plan of Treatment Not on file documented as of this encounter Visit Diagnoses Diagnosis Generalized anxiety disorder with panic attacks- Primary MDD (major depressive disorder), recurrent episode, mild (H) Major depressive disorder, recurrent episode, mild Attention deficit hyperactivity disorder (ADHD), predominantly inattentive type PTSD (post-traumatic stress disorder) Posttraumatic stress disorder documented in this encounter Additional Health Concerns Assessment Noted Time PHQ-9 Depression Total Score: 14 024 5:12 PM CDT documented as of this encounter Care Teams Telephone Interceptor Operator Relationship Specialty Start Date End Date Shannan Malcolm CNP [address] [place] [address] [id number] PCP - General Nurse Practitioner - Family 07/09/22 Shannan Malcolm CNP [address] [place] [address] [id number] Assigned PCP 04/07/22 Mattie Tellez APRN HOSPITAL INSURANCE REPRESENTATIVE [address] [place] [id number] Assigned Behavioral Health Provider 09/22/22 documented as of this encounter
--- OUTSIDE RECORDS SUMMARY | 2024-04-11 17:56 | XMS_ITS | Encounter Summary ---
Author Organization [facility] Address [address] [place] [address] Care Team Providers Care Nurse Licensed Practical Name Role Phone Shannan Malcolm CNP Unavailable [phone] Shannan Malcolm CNP Primary Care Provider [phone] Mattie Tellez APRN DIRECTOR OF ENTERPRISE ARCHITECTURE Unavailable Reason for Visit * Reason Onset Date Comments Refill Request 02/17/2024 dexmethylphenida te (FOCALIN XR) 10 MG 24 hr capsule Encounter Details Date Type Department Care Team (Late st Contact Info) Description 02/17/2024 MyC Refill [facility] [address] [place] [address] Mattie Tellez APRN DIRECTOR OF ENTERPRISE ARCHITECTURE [address] [place] [address] Refill Request (dexmethylphenidate (FOCALI... 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 policy. [x]Medication unable to be refilled by [...] []Scope of Practice: refill request processed by MAINTENANCE OF WAY CLERK/MA []Other: Medication(s) requested: - dexmethylphenidate (FOCALIN XR) 10 MG 24 hr capsule Date last ordered: 01/19/2024 Qty: 30 Refills:0 Take 1 capsule (10 mg) by mouth every morning With Focalin XR 5 mg for total dose of 15 mg. - Appropriate for refill? Provider to review. Controlled Substance Any Controlled Substance(s)? Yes [place] CAR CONDITIONER checked? Yes Dexmethylphenidate ER 10 mg cp was last sold on for quantity of 30. Other controlled substance on [place] CAR CONDITIONER?: Yes Requested medication(s) verified as identical to [...] or call after hours crisis line at [phone] or [phone]. [place] Crisis Text Line. Text [place] to 905922 or Suicide LifeLine Chat: suicidepreventionlifeline.org/chat Schedule an appointment with me in 4 weeks or sooner as needed. Call [facility] [phone] to schedule. Follow up with primary care provider as planned or for acute medical concerns. Call the psychiatric nurse line with medication questions or concerns at [phone]. MyChart may be used to communicate with [...] documented as of this encounter Care Teams Nurse Licensed Practical Relationship Specialty Start Date End Date Shannan Malcolm CNP [address] [place] [id number] PCP - General Nurse Practitioner - Family 07/09/22 Shannan Malcolm CNP [address] [place] [address] Assigned PCP 04/07/22 Mattie Tellez APRN DIRECTOR OF ENTERPRISE ARCHITECTURE [address] [place] [address] 118[address] Assigned Behavioral Health Provider 09/22/22 documented as of this encounter
--- OUTSIDE RECORDS SUMMARY | 2024-04-11 17:56 | XMS_ITS | Encounter Summary ---
Author Organization [facility] Address [address] [place] [address] Care Team Providers Care Seed Mill Superintendent Name Role Phone Shannan Malcolm CNP Unavailable [phone] Shannan Malcolm CNP Primary Care Provider [phone] Mattie Tellez APRN GREENHOUSE GROWER Unavailable [phone] Reason for Visit * Reason Onset Date Comments Refill Request 03/16/2024 Encounter Details Date Type Department Care Team (Late st Contact Info) Description 03/16/2024 MyC Refill [facility] [address] [place] [address] Mattie Tellez, ROSEMARIE GREENHOUSE GROWER [address] [place] [address] Refill Request Social History Tobacco [...] file Legal Sex Female 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 policy. [x]Medication unable to be refilled by [...] care provider. Referral placed for DBT. [facility] will call you to coordinate your care as prescribed by your provider. If you don't hear from a employer relations representative within 2 business days, please call [phone]. Safety plan reviewed. To the Emergency Department as needed or call after hours crisis line at [phone] or [phone]. [place] Crisis Text Line. Text [place] to [address]893 or Suicide LifeLine Chat: suicidepreventionlifeline.org/chat Schedule an appointment with ky and Behavioral Health Doctor Of Naturopathic Medicine in 4 weeks or sooner as needed. Call [facility] at [phone] to schedule. Follow up with primary care provider as planned or for acute medical concerns. Call the psychiatric nurse line with medication questions or concerns at [phone]. MyChart may be used to communicate with [...] documented as of this encounter Care Teams Seed Mill Superintendent Relationship Specialty Start Date End Date Shannan Malcolm CNP [facility] [place] [address] PCP - General Nurse Practitioner - Family 07/09/22 Shannan Malcolm CNP [address] [place], [place] [address] Assigned PCP 04/07/22 Mattie Tellez APRN CNP [address] [place] [address] Assigned Behavioral Health Provider 09/22/22 documented as of this encounter
--- OUTSIDE RECORDS SUMMARY | 2024-04-11 17:56 | XMS_ITS | Encounter Summary ---
Author Organization [facility] Address [facility]ly [facility] [place] [address] Care Team Providers Care Bung Dropper Name Role Phone Shannan Malcolm CNP Unavailable [phone] Shannan Malcolm CNP Primary Care Provider [phone] Mattie Tellez APRN MACHINE WEDGER Unavailable [phone] Reason for Visit * Reason Comments RECHECK Encounter Details Date Type Department Care Team (Latest Contact Info) Description 04/06/2024 8:00 AM CDT Virtual Visit [facility] [address] [place] [address] [address] [place] [address] Mattie Tellez, ROSEMARIE MACHINE WEDGER [address] [place], [place] [id number] Generalized anxiety disorder with panic attacks (Primary Dx); Attention deficit hyperactivity disorder (ADHD), predominantly inattentive type; MDD (major depressive disorder), recurrent episode, moderate (H); PTSD (post-traumatic stress disorder) Social History Tobacco [...] on file Legal Sex 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 TREATMENT PLAN: Medications: STOP clonidine 0.1 mg at bedtime. START trazodone 25 - 50 mg at bedtime. May increase to 100 mg if needed. CONTINUE hydroxyzine 10 mg (1/2-1 tablet) up to twice a day for insomnia, anxiety. No script needed. INCREASE TO clonazepam 0.5 mg in AM with 0.25 mg (1/2 tablet) as needed in afternoon as needed for severe anxiety only. DO NOT TAKE WITH OPIOID PAIN MEDICATION. CONTINUE fluoxetine 60 mg (40 mg + 20 mg) every day. No script needed. CONTINUE Focalin XR 15 mg (10 mg + 5 mg) every day. Script to be filled after 04/17/24. CONTINUE focalin 5 mg every day in the afternoon. Script sent. Continue all other medications per primary care provider. Consults / Referrals: Referral placed for DBT. Viviane call [phone] to schedule. Follow-up: Schedule an appointment with pa and Behavioral Health Behavioral Pediatrician in 4 weeks or sooner as needed. Call [facility] at [phone] to schedule. Follow up with primary care provider as planned or for acute medical concerns. Call the psychiatric nurse line with medication questions or concerns at [phone]. MyChart may be used to communicate with [...] patientis advised that I will not prescribe long term care administrator/high dose benzodiazepine due to risk in addition [...] cardiovascular risks, increased blood pressure. Financial Assistance [phone] [employer] Billing [phone] Central Billing Office, [employer] [facility]: [phone] [facility] [phone] Medical Records [phone] [facility] Patient Bill of Rights [email or web address] MENTAL HEALTH CRISIS RESOURCES: For a emergency help, please call 911 or go to the nearest Emergency Department. Emergency Walk-In Options: EmPATH Unit @ [facility] ([place]): [phone] - Specialized mental health emergency area designed to be calming [facility] ([place]): [phone] [facility] Acute Psychiatry Services ([place]): [phone] [facility]): [phone] [facility] Crisis Information: [place]: [phone] Endy: [phone] Richy ([place]) - Adult: [phone] Child: [phone] Jeff - Adult: [phone] Child: [phone] Miller: [phone] List of all [facility] resources: https://sc.gov/dhs/mgocsr-ke-pbaxa/adults/health-care/mental-health/resources/cr therese-contacts.jsp National Crisis Information: National Suicide & Crisis Lifeline: Call 988 For online chat options, visit https://suicidepreventionlifeline.org/chat/ Poison Control Center: Poison Control Center: Trans Lifeline: - Hotline for transgender people of all ages The Juan Project: - Hotline for LGBT youth For Non-Emergency Support: Fast Tracker: Mental Health & Substance Use Disorder Resources - https://www.To8tockActionalityn.org/ Again thank you for choosing [facility] and please let us know how [...] show if: Your appointment starts with a [facility], and you're more than 15 minutes late [...] call your pharmacy. You can also call [facility]'s Behavioral Access at , Saturday [...] your health care provider. Copyright ?? 2021 [facility]. All rights reserved. [employer] [id number] - 05/31. documented in this encounter Progress Notes * Mattie Tellez APRN CNP - 04/06/2024 8:00 AM CDT Images from the original note were not included. Virtual Visit Details Type of service: Video Visit Video Start Time: 8:07 AM Video End Time: 8:35 AM Originating Location (pt. Location): Home Distant Location (provider location): On-site Platform used for Video Visit: GlassBox PSYCHIATRIC MEDICATION FOLLOW UP APPT Name: Skylar [...] Shannan Malcolm CNP Therapist: none currently The [facility] psychiatry providers act as a specialty service for Primary Care Providers in the [facility] who seek to optimize medications for unstable patients. Once medications have been optimized, [facility] providers discharge the patient back to the referring Primary Care Provider for ongoing medication management. This type of system allows [facility] to serve a high volume of patients. Patient Identification: Patient is a 38 year old, in a relationship or White or female who presents for return visit with pa. Patient prefers to be called: Melisa. 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 RECORDS AVAILABLE FOR REVIEW: EHR records through [facility] and I have reviewed the assessment completedby ANDREI Leal, dated today . Interim History: Per [facility], ANDREI Leal, during today's team-based visit: MH update: pt reports doing ok with [...] sad. Goals: decrease anxiety, improve depressive sx I last saw Skylar Santillan for outpatient psychiatry Return Visit on 02/24/24. During that appointment, we added hydroxyzine 10 mg, and continued fluoxetine 60 mg, clonidine 0.1 mg QHS 0.1 mg PRN for anxiety, focalin XR 15 mg / IR 5 mg in afternoon, and lorazepam 0.5 mg up to BID. In interim, patient requested return to clonazepam from the lorazepam and sent equivalent dose (0.25 mg clonazepamfrom lorazepam 0.5 mg). Patient reports ADHERING to prescribed medications. Of note, patient had emergency cholecystectomy yesterday, currently prescribed norco per PDMP / patient, and off work for next couple weeks to recover. She reports a high amount of pain overnight, plans to connect with provider. She is aware of warning for opioid pain medication and benzodiazepine and plans to use only for severe panic, otherwise hydroxyzine until done with pain medication. She did reach out as the clonazepam 1/2 tablet (0.25 mg) does not feel like enough to her in terms of anxiety. She has instead been using the full tablet (1 mg) in AM and 1/2 tablet later in day if needed, has #10/07 sent previously. She does find the hydroxyzine helpful for anxiety but because it makes her tired only using at bedtime mostly to help with sleep. Sleep worsened without mirtazapine, does not think the clonidine has been very helpful for insomnia or anxiety at this point. Does report lower mood due to ongoing str essors and high anxiety, but denies any SI/SIB/HI. No psychosis, no seamus, reports ongoing sobrietyfrom ETOH. Because of busy work schedule has not FU on DBT referral, but does plan to. Initial Impression / MREs: 02/24/24: At last appointment 1 month ago , discontinued mirtazapine due to side effects, and started clonidine 0.1 mg at bedtime, with 0.1 during day for anxiety, and continued lorazepam 0.5 mg up totwice a day, fluoxetine 60 mg, focalin XR 15 mg / IR 5 mg in afternoon . Patient reports mild improvement in anxiety, some sleep with clonidine. Is struggling with some side effects , including drowsiness. Overall thinks improvement is worth continuing at this time. Her anxiety does remain high andshe does again admit to using more lorazepam [...] is very helpful for her anxiety, but whenshe is out of it her anxiety is [...] Follow-up with this provider + Behavioral Health Behavioral Pediatrician in 1 month. Additionally sending referral for DBT. Patientagreeable to plan. 01/27/24: At last appointment one month ago, [...] in 4 weeks or sooner as needed. 05/28/23: Skylar Santillan is a 37 year [...] breath, wheezing or cough. 90 mL 0 clonazePAM (KLONOPIN) 0.5 MG tablet Take 0.5 tablets (0.25 mg) by mouth 2 times daily as needed foranxiety. 15 tablets for 30 days. No early refills. 15 tablet 0 cloNIDine (CATAPRES) 0.1 MG tablet Take 1 [...] to last 30 days. 60 tablet 0 mirtazapine (REMERON) 7.5 MG tablet Take 1 tablet (7.5 mg) by mouth at bedtime. No current facility-administered medications for this visit. Side effects: clonidine: drowsiness, slowed, monitoring for dizziness The [place] Prescription Monitoring Program has been reviewed and there are no concerns about diversionary activity for controlled substances at this time. 04/05/2024 04/05/2024 3 Hydrocodone-Acetamin 5-325 Mg 20.00 5 Ka Sofia [id number] Nor ([id number]) 0/0 20.00 MME Medicaid [place] 03/25/2024 03/17/2024 3 Clonazepam 0.5 Mg Tablet 15.00 30 Cl Hil [id number] [place] ([id number]) 0/0 0.50 LME Medicaid [place] 03/24/2024 03/17/2024 3 Dexmethylphenidate Er 5 Mg Cap 30.00 30 Cl Hil [place] ([id number]) 0/0 [place] 03/18/2024 03/17/2024 3 Dexmethylphenidate Er 10 Mg Cp 30.00 30 Cl Hil [id number] [place] ([id number]) 0/0 [place] 03/09/2024 03/09/2024 3 Dexmethylphenidate 5 Mg Tab 30.00 30 [facility] [id number] [place] ([id number]) 0/0 [place] Psychiatric [place]: Skylar Santillan reports mood has been: Just so anxious still. Depression has been: depressed mood, little interest / pleasure, appetite change or significant weight loss / [...] / staying asleep, or restless / unsatisfying) . Sleep has been: ok onset but unable to stay asleep overnight. Mirtazapine helpful previously, did not tolerate appetite increase Energy has been: fluctuates Appetite has been: unremarkable, binging more in the evening, wont eat with high anxiety, struggleswith motivation to make meals for self Seamus sxs: denies Psychosis sxs: denies ADHD/ADD sxs: best improvement with Focalin XR and afternoon augment . Does skip medications when not working (~3 days / week), and notes worsening anxiety on those days. PTSD sxs: exaggerated negative beliefs about self, others, world and negative emotional state, problems concentrating and sleep disturbances, nightmares. PHQ9 and GAD7 scores were reviewed today. PHQ-9 scores: 01/01/2024 10:47 AM 03/02/2024 8:53 AM 04/05/2024 5:12 PM PHQ-9 SCORE PHQ-9 Total Score MyChart 9 (Mild depression) 14 (Moderate depression) PHQ-9 Total Score 6 9 14 Patient-reported CATHY-7 scores: 01/01/2024 10:47 AM 02/24/2024 8:21 AM 04/01/2024 8:59 AM CATHY-7 SCORE Total Score 13 (moderate anxiety) 14 (moderate anxiety) Total Score 13 13 14 Patient-reported Current stressors include: Parenting Stress, Symptoms and Occupational Difficulties, relationship difficulties, new job Coping mechanisms and supports include: Family, Club Recovery, AA Vital Signs: There were no vitals taken for this visit. Review of Systems: 10 systems (general, cardiovascular, respiratory, eyes, ENT, endocrine, GI, , M/S, neurological) were reviewed. Most pertinent finding(s) is/are: + abdominal pain s/p cholecystectomy. No acute distress; no wheezing / short of breath / increased work of breathing; denies chest pain / tightness / palpitations; reduced appetite and recent weight loss; no nausea / vomiting; no tics / tremors / abnormal muscle mvmts; no visible skin changes / rashes. The remaining systems are all unremarkable. Labs: [...] Pcn [Penicillins] Rash Mental Status Exam: Alertness: oriented and sleepy Appearance: casually groomed Behavior/Demeanor: cooperative and pleasant, with good eye contact Speech: normal and regular rate and rhythm Language: intact and no problems Psychomotor: normal or unremarkable Mood: anxious and worried Affect: mildly flat but appropriate ; was congruent to mood; was congruent to [...] Knowledge: appropriate Gait and Station: unremarkable via seated video Suicide Risk Assessment: Today Skylar Santillan [...] a change in any of these risk factors 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, predominantly inattentive type [...] (major depressive disorder), recurrent episode, mild (H) 01/27/2024 Priority: Medium PTSD (post-traumatic stress disorder) [...] Patient is followed by Azra Shine NP, FUNERAL ASSISTANT for ongoing prescription of a controlled medicine. [...] NIL pap. Plan pap in 1 yr. 12/24/13: Lost to pap tracking 10/09/16: NIL pap, [...] (CCPS) for medication management. At last appointment six weeks ago, we added hydroxyzine 10 mg, and continued fluoxetine 60 mg, clonidine 0.1 mg QHS 0.1 mg PRN for anxiety, focalin XR 15 mg / IR 5 mg in afternoon, and lorazepam 0.5 mg up to BID. In interim, patient requested return to clonazepam from the lorazepam and sent equivalent dose (0.25 mg clonazepam from lorazepam 0.5 mg) which patient has found notfully covering anxiety symptoms and has used 0.5 mg QAM most days, with 0.25 (1/2 tablet) as needed. Of note, patient had emergency cholecystectomy yesterday, currently prescribed opioid medication per PDMP / patient. She reports a high amount of pain overnight, plans to connect with provider. She is aware of warning for opioid pain medication and benzodiazepine and plans to use only for severe panic, otherwise hydroxyzine until done with pain medication. We will increase morning clonazepam dose after pain medication is discontinued, with 1/2 tablet only as needed. She continues to report high anxiety, poor sleep maintenance, and some increasing depression over last few weeks. Denies any SI/SIB/HI. No psychosis, no seamus, reports ongoing sobriety from ETOH. Because of busy work schedule has not FU on DBT referral, but does plan to. Given minimal benefit from clonidine per patient, we will discontinue at this time and trial trazodone as alternative for insomnia. Continue all other medications. Follow-up with this provider and Behavioral Health Behavioral Pediatrician in 1 month. Patient agreeableto plan. Medication side effects and alternatives were reviewed. Health promotion activities recommended andreviewed today. All questions addressed. Education and counseling completed regarding risks and benefits of medications and psychotherapy options. Recommend therapy for additional support. Treatment Plan: STOP clonidine 0.1 mg at bedtime. START trazodone 25 - 50 mg at bedtime. May increase to 100 mg if needed. CONTINUE hydroxyzine 10 mg (1/2-1 tablet) up to twice a day for insomnia, anxiety. No script needed. INCREASE TO clonazepam 0.5 mg in AM with 0.25 mg (1/2 tablet) as needed in afternoon as needed for severe anxiety only. DO NOT TAKE WITH OPIOID PAIN MEDICATION. CONTINUE fluoxetine 60 mg (40 mg + 20 mg) every day. No script needed. CONTINUE Focalin XR 15 mg (10 mg + 5 mg) every day. Script to be filled after 04/17/24. CONTINUE focalin 5 mg every day in the afternoon. Script sent. Continue all other medications per primary care provider. Referral placed for DBT. Viviane call [phone] to schedule. Safety plan reviewed. To the Emergency Department as needed or call after hours crisis line at [phone] or [phone]. [place] Crisis Text Line. Text [place] to [address]72 or Suicide LifeLine Chat: suicidepreventionlifeline.org/chat Schedule an appointment with pa and Behavioral Health Behavioral Pediatrician in 4 weeks or sooner as needed. Call [facility] at [phone] to schedule. Follow up with primary care provider as planned or for acute medical concerns. Call the psychiatric nurse line with medication questions or concerns at [phone]. Ad Dynamohart may be used to communicate with your provider, but this is not intended to be used for emergencies. Patient Education: Medication side effects and alternatives reviewed. Health promotion activities recommended and reviewed today. All questions addressed. Education and counseling completed regarding risks and benefitsof medications and psychotherapy options. Consent provided by patient/guardian Call the psychiatric nurse line with medication questions or concerns at [phone]. MyChart may be used to communicate with your provider, but this is not intended to be used for emergencies. SEROTONIN SYNDROME: Discussed risks of Serotonin syndrome (ie, serotonin toxicity) which is a potentially life-threatening condition associated with increased serotonergic activity in the central nervous system (SUPERVISOR SHUTTLE FITTING). It is seen with therapeutic medication use, [...] keep place and cannot replace lost scripts. MedlineBrainient.gov is information for patients. It is run by the [employer] of Medicine and it contains information about all disorders, diseases and all medications. Patient to monitor for signs and symptoms of serotonin syndrome/serotonin toxicity (eg, hyperreflexia, clonus, hyperthermia, diaphoresis, tremor, autonomic instability, mental status changes) when these drugs are combined. Community Resources: National Suicide Prevention Lifeline: 212.848.6381 (TTY: 521.860.6342). Call anytime for help. (www.suicidepreventionlifeline.org) National Richardson on Mental Illness (www.jason.org): 689.558.7992 or 131-727-8574. Mental Health Association (www.mentalhealth.org): 599.549.4284 or 868-346-4032. [place] Crisis Text Line: Text [place] to 3[address]75 Suicide LifeLine Chat: suicidepreTheracosline.org/chat Administrative Billing: Level of Medical Decision Making: - At least 1 chronic problem that is not stable - Engaged in prescription drug management during visit (discussed any medication benefits, side effects, alternatives, etc.) Patient Status: CCPS MD/DO/FUNERAL ASSISTANT/PA providers offer care a specialty service for Primary Care Providers in the [facility] that seek to optimize psychotropic medications for unstable patients. Once medications havebeen optimized, our providers discharge the patient back to the referring Primary Care Provider forongoing medication management. This type of system allows our providers to serve a high volume of patients. Patient will continue to be seen for ongoing consultation and stabilization. Signed: Mattie Tellez, MSN, MANAGER CRITICAL CARE UNIT, PMHNP- Collaborative Care Psychiatry Service (CCPS) [facility] Chart documentation done in part with inContact Voice Recognition software. Although reviewed after completion, some word and grammatical errors may remain. documented in this encounter Nursing Notes * Nelda Montez - 04/06/2024 8:00 AM CDT Current patient location: [address] [place] [address] Is the patient currently in the state of [place]? YES Visit mode:VIDEO If the visit is dropped, the patient can be reconnected by: VIDEO VISIT: Text to cell phone: Telephone Information: Will anyone else be joining the visit? NO (If patient encounters technical issues they should call [phone] Are changes needed to the allergy or medication list? Pt stated no changes to allergies and Pt stated no med changes Are refills needed on medications prescribed by this physician? Discuss with provider Rooming Documentation: Questionnaire(s) completed Reason for visit: RECHECK Nelda Montez VVF documented in this encounter Plan of Treatment Not on file documented as of this encounter Visit Diagnoses Diagnosis Generalized anxiety disorder with panic attacks- Primary Attention deficit hyperactivity disorder (ADHD), predominantly inattentive type MDD (major depressive disorder), recurrent episode, moderate (H) Major depressive disorder, recurrent episode, moderate PTSD (post-traumatic stress disorder) Posttraumatic stress disorder documented in this encounter Additional Health Concerns Assessment Noted Time PHQ-9 Depression Total Score: 14 024 5:12 PM CDT documented as of this encounter Care Teams Bung Dropper Relationship Specialty Start Date End Date Shannan Malcolm CNP [address] [place] [address] PCP - General Nurse Practitioner - Family 07/09/22 Shannan Malcolm CNP [address] [place] [address] Assigned PCP 04/07/22 Mattie Tellez APRN MACHINE WEDGER [address] [place] [address] Assigned Behavioral Health Provider 09/22/22 documented as of this encounter
--- OUTSIDE RECORDS SUMMARY | 2024-04-11 17:56 | XMS_ITS | Encounter Summary ---
Author Organization [facility] Address [address] [place] [address] Care Team Providers Care Signal Integrity Engineer Name Role Phone Shannan Malcolm CNP Unavailable [phone] Shannan Malcolm CNP Primary Care Provider [phone] Mattie Tellez APRN OPTOMETRIST Unavailable [phone] Reason for Visit * Reason Onset Date Comments Refill Request 02/17/2024 dexmethylphenida te (FOCALIN XR) 5 MG 24 hr capsule Encounter Details Date Type Department Care Team (Late st Contact Info) Description 02/17/[address] [facility] Mental Health & [facility] [address] [place] [address] Mattie Tellez APRN OPTOMETRIST [address] [place] [address] Refill Request (dexmethylphenidate (FOCALI... 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 policy. [x]Medication unable to be refilled by [...] []Scope of Practice: refill request processed by CRIME PREVENTION POLICE OFFICER/MA []Other: Medication(s) requested: - dexmethylphenidate (FOCALIN XR) 5 MG 24 hr capsule Date last ordered: 01/19/2024 Qty: 30 Refills: 0 Take 1 capsule (5 mg) by mouth every morning With Focalin XR 10 mg for total dose of 15 mg. - Appropriate for refill? Provider to review. Controlled Substance Any Controlled Substance(s)? Yes [place] FLAT SORTER PROCESSOR checked? Yes Dexmethylphenidate ER 5 mg cap was last sold on 01/23/2024 for quantity of 30. Other controlled substance on [place] FLAT SORTER PROCESSOR?: Yes Requested medication(s) verified as identical to [...] or call after hours crisis line at [phone] or [phone]. [place] Crisis Text Line. Text [place] to 630907 or Suicide LifeLine Chat: suicidepreventionlifeline.org/chat Schedule an appointment with me in 4 weeks or sooner as needed. Call [facility] [phone] to schedule. Follow up with primary care provider as planned or for acute medical concerns. Call the psychiatric nurse line with medication questions or concerns at [phone]. MyChart may be used to communicate with [...] as of this encounter Care Teams Signal Integrity Engineer Relationship Specialty Start Date End Date Shannan Malcolm CNP [address] [place] [address] PCP - General Nurse Practitioner - Family 07/09/22 Shannan Malcolm CNP [address] [place] [address] Assigned PCP 04/07/22 Mattie Tellez APRN OPTOMETRIST [address] [place] [address] Assigned Behavioral Health Provider 09/22/22 documented as of this encounter
--- OUTSIDE RECORDS SUMMARY | 2024-04-11 17:56 | XMS_ITS | Encounter Summary ---
Author Organization [facility] Address [address] [place] [address] Care Team Providers Care Chemical Plant Operator Supervisor Name Role Phone Shannan Malcolm CNP Unavailable [phone] Shannan Malcolm CNP Primary Care Provider + [phone] Mattie Tellez APRN DRUM SEALER Unavailable [phone] Reason for Visit * Reason Onset Date Comments Medication Request 03/14/2024 Change anti-a nxiety medication Encounter Details Date Type Department Care Team (Late st Contact Info) Description 03/14/2024 [facility] Medical Advice [facility] [address] [place] [address] [address] [place] [address] Mattie Tellez APRN DRUM SEALER [address] [place] [address] Medication Request (Change anti-anxiety me... 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 Per [place] SCULPTURE CONSERVATOR, LORazepam (ATIVAN) 0.5 MG tablet was last purchased on 02/25/24. Lauren Esparza RN on 03/16/2024 at 12:11 PM documented in this encounter Plan of Treatment Not on file documented as of this encounter Visit Diagnoses Not on filedocumented in this encounter Additional Health Concerns Assessment Noted Time PHQ-9 Depression Total Score: 9 03/02/20 8:53 AM CDT documented as of this encounter Care Teams Chemical Plant Operator Supervisor Relationship Specialty Start Date End Date Shannan Malcolm CNP [address] [place] [address] PCP - General Nurse Practitioner - Family 07/09/22 Shannan Malcolm CNP [address] [place] [phone] Assigned PCP 04/07/22 Mattie Tellez APRN DRUM SEALER [address] [place] [address] Assigned Behavioral Health Provider 09/22/22 documented as of this encounter
--- OUTSIDE RECORDS SUMMARY | 2024-04-11 17:56 | XMS_ITS | Encounter Summary ---
Author Organization [facility] Address [address] [place] [address] Care Team Providers Care Multicultural Services Librarian Name Role Phone Shannan Malcolm CNP Unavailable [phone] Shannan Malcolm CNP Primary Care Provider [phone] Mattie Tellez APRN BRACE END MAINSPRING FORMER Unavailable [phone] Reason for Visit * Reason Onset Date Comments Refill Request 02/24/2024 Prozac 40 Encounter Details Date Type Department Care Team (Late st Contact Info) Description 02/24/[address] [address] Shannan Malcolm, BRACE END MAINSPRING FORMER [address] [place] [address] Refill Request (Prozac 40) 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 Gender Identity Female 02/08/2022 7:17 AM CDT [...] Time PHQ-9 Depression Total Score: 6 01/01/20 10:48 AM CDT documented as of this encounter Care Teams Multicultural Services Librarian Relationship Specialty Start Date End Date Shannan Malcolm CNP [facility] [place], [place] [address] PCP - General Nurse Practitioner - Family 07/09/22 Shannan Malcolm CNP [address] [place] [address] [phone] Assigned PCP 04/07/22 Mattie Tellez APRN [employer] MAINSPRING FORMER [address] [place] [address] Assigned Behavioral Health Provider 09/22/22 documented as of this encounter
--- OUTSIDE RECORDS SUMMARY | 2024-04-11 17:56 | XMS_ITS | Encounter Summary ---
Author Organization [facility] Address [facility] [place] [address] Care Team Providers Care Gas Load Dispatcher Name Role Phone Shannan Malcolm CNP Unavailable [phone] Shannan Malcolm CNP Primary Care Provider [phone] Mattie Tellez APRN TREE FRUIT AND NUT FARMING SUPERVISOR Unavailable [phone] Encounter Details Date Type Department Care Team (Late st Contact Info) Description 03/25/2024 [facility] Medical Advice [facility] [address] [address] [place] [address] Mattie Tellez APRN TREE FRUIT AND NUT FARMING SUPERVISOR [address] [facility] [place], [place] [phone] Social History Tobacco Use Types Packs/Day Years [...] on file 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
--- OUTSIDE RECORDS SUMMARY | 2024-04-11 17:56 | XMS_ITS | Encounter Summary ---
Author Organization [facility] Address [address] [place] [address] Care Team Providers Care Insole Toe Snipping Machine Operator Name Role Phone Shannan Malcolm CNP Unavailable [phone] Shannan Malcolm CNP Primary Care Provider + [phone] Mattie Tellez APRN PLUG SHAPER HAND Unavailable [phone] Reason for Visit * Reason Onset Date Comments Refill Request 02/24/2024 Encounter Details Date Type Department Care Team (Late st Contact Info) Description 02/24/2024 My[facility] Refill [facility] [address] [place] [address] Mattie Tellez, [place] PLUG SHAPER HAND [address] [place] [address] Refill Request Social History Tobacco [...] file 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
--- OUTSIDE RECORDS SUMMARY | 2024-04-11 17:56 | XMS_ITS | Clinical Summary ---
Author Organization [facility] Address [address] [place] [address] Care Team Providers Care Needle Loom Setter Name Role Phone Shannan Malcolm CNP Unavailable [phone] Shannan Malcolm CNP Primary Care Provider [phone] Mattie Tellez APRN QUILL STRIPPER Unavailable Allergies Active Allergy Reactions Criticality Noted Date [...] days. No early refills. 15 tablet 03/25/20 024 Discontin ued(Reord er (No AVS)) Active [...] Patient is followed by Azra Shine NP, RN OPERATING ROOM for ongoing prescription of a controlled medicine. [...] Date Type Department Care Team Description 04/06/2024 8:00 AM CDT Virtual Visit [facility] [address] [place] [phone] Mattie Tellez APRN QUILL STRIPPER Generalized anxiety disorder with panic attacks (Primary Dx); Attention deficit hyperactivity disorder (ADHD), predominantly inattentive type; MDD (major depressive disorder), recurrent episode, moderate (H); PTSD (post-traumatic stress disorder) 04/06/2024 7:30 AM CDT Virtual Visit [facility] [address] [place] [phone] Lexi Farnsworth LICSW Generalized anxiety disorder with panic attacks (Primary Dx); MDD (major depressive disorder), recurrent episode, mild (H); Attention deficit hyperactivity disorder (ADHD), predominantly inattentive type; PTSD (post-traumatic stress disorder) 03/29/2024 MyC Refill [facility] [address] [place] [phone] Mattie Tellez APRN CNP Refill Request 03/29/2024 MyC Refill [address] [facility] [place] [phone] Shannan Malcolm CNP Refill Request 03/25/2024 MyC Medical Advice [facility] [address] [place] [address] [address] [place] [phone] Mattie Tellez APRN CNP 03/17/2024 Orders Only [facility] [address] [facility] [address] [place] [phone] Mattie Tellez APRN CNP Generalized anxiety disorder with panic attacks (Primary Dx) 03/16/2024 MyC Refill [facility] [address] [place] [address] [address] [place] [phone] Mattie Tellez APRN CNP Refill Request 03/14/2024 MyC Medical Advice [facility] [address] [place] [phone] Mattie Tellez APRN CNP Medication Request (Change anti-anxiety me... 03/09/2024 MyC Refill [facility] [address] [place] [address] [address] [place] [phone] Mattie Tellez APRN CNP Refill Request (Focalin 5 mg) 03/02/2024 1:00 PM CDT Virtual Visit [address] [facility] [place] [phone] Shannan Malcolm CNP Infection due to 2019 novel coronavirus (Primary Dx); Mild intermittent asthma without complication 03/02/[address] [place] [phone] Shannan Malcolm CNP 02/26/2024 MyC Medical Advice [facility] [address] [address] [phone] [facility] 02/24/2024 10:30 AM CDT Virtual Visit [facility] [address] [phone] Mattie Tellez APRN CNP Generalized anxiety disorder with panic attacks (Primary Dx); PTSD (post-traumatic stress disorder); Attention deficit hyperactivity disorder (ADHD), predominantly inattentive type; Alcohol use disorder in remission; MDD (major depressive disorder), recurrent episode, mild (H) 02/24/[address] [phone] Shannan Malcolm, QUILL STRIPPER Refill Request (Prozac 40) 02/24/2024 MyC Refill [facility] [address] [phone] Mattie Tellez APRN QUILL STRIPPER Refill Request 02/17/2024 MyC Refill [facility] [address] [phone] Mattie Tellez APRN QUILL STRIPPER Refill Request (dexmethylphenidate (FOCALI... 02/17/2024 MyC Refill [facility] [address] [phone] Mattie Tellez APRN QUILL STRIPPER Refill Request (dexmethylphenidate (FOCALI... 01/27/2024 8:00 AM CDT Virtual Visit [facility] [address] [phone] Mattie Tellez APRN QUILL STRIPPER Generalized anxiety disorder with panic attacks (Primary Dx); PTSD (post-traumatic stress disorder); Alcohol use disorder in remission; MDD (major depressive disorder), recurrent episode, mild (H); Attention deficit hyperactivity disorder (ADHD), predominantly inattentive type 01/23/2024 MyC Refill [facility] [address] [place] [phone] Mattie Tellez APRN CNP Refill Request (lorazepam (ATIVAN) 0.5 MG ... 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 Gender Identity Female 02/08/2022 7:17 AM CDT [...] 01/27/2024 7:56 AM CDT Plan of Treatment Health Maintenance [...] 07/22/2023, 09/25/2021, 09/04/2021 INFLUENZA VACCINE (#1) 2024 4, 07/22/2023, 10/01/2017 (Declined), Additional history exists ASTHMA CONTROL TEST 07/03/2024 01/01/2024, 09/21/2022, 07/16/2022, Additional history exists YEARLY PREVENTIVE VISIT 07/22/2024 07/22/19, 10/14/2017, 10/09/2016, Additional history exists PHQ-9 10/05/2024 04/06/2024, 09/2 08/2023, 01/01/2024, Additional history exists GLUCOSE 02/16/2025 02/16/2022, 060 02/2022, 11/15/2021, Additional history exists HPV TEST 07/22/2026 07/22/2023, 050 12/2017, 10/09/2016 PAP 07/22/2026 07/22/2023, 050 12/2017, 10/09/2016, Additional history exists DTAP/TDAP/TD IMMUNIZATION [...] and gender (Octavio et al., NEJM, DOI: 10.1056/XNJVcr5052364) Blood BLOOD SPECIMEN / Unknown Venipuncture / Unknown 02/16/2022 10:35 AM CDT 02/16/2022 10:35 AM CDT us Shannan Malcolm CNP LAB - BLOOD ORDERABLES Fi nal Result [facility] [address] Lab (no room number, 1st floor of clinic) [place] [address], [facility] [phone] * HIV Antigen Antibody Combo (10/14/2017 10:05 AM CDT) Pathologist [facility] HIV Antigen Antibody Combo Nonreactive NR^Nonrea ctive 10/15/2017 11:[address] [facility] Comment:HIV-1 p24 Ag & HIV-1 /HIV-2 Ab Not Detected Blood specimen (specimen) 10/14/2017 10:05 AM CDT 10/14/2017 10:06 AM CDT us Noreen Buitrago PA-C LAB - BLOOD ORDERABLES Fi nal Result [facility] [address] [place] [address] * Albumin Random Urine Quantitative with Creat Ratio (10/14/2017 10:04 AM CDT) Creatinine Urine 34 mg/dL 10/14/2017 6:08 PM CDT [facility] Albumin Urine mg/L <5 mg/L 10/14/2017 6:13 PM CDT [facility] Albumin Urine mg/g Cr Unable to calculate due to low value 0 - 25 mg/g Cr 10/14/2017 6:13 PM CDT [facility] Urine specimen (specimen) 10/14/2017 10:04 AM CDT 10/14/2017 10:05 AM CDT us Noreen Buitrago PA-C LAB - URINE ORDERABLES Fi nal Result [facility] [address] [place] [address], [facility] [phone] * HPV High Risk Types DNA Cervical (10/14/2017 9:54 AM CDT) HPV Source [facility] 10/14/2017 9:41 AM CDT [facility] HPV 16 DNA Negative NEG^Nega tive 10/18/2017 10:[address] [facility] HPV 18 DNA Negative NEG^Nega tive 10/18/2017 10:[address] [facility] Other HR HPV Negative NEG^Nega tive 10/18/2017 10:[address] [facility] Final Diagnosis This patient's sample is negative for HPV DNA. 10/18/2017 10:[address] [facility] Comment: This test was developed and its performance characteristics determined by the [facility], Molecular Diagnostics Laboratory. It has not [...] Description Cervical Cells 10/17/2017 9:[address] [facility] Comment:[id number] Cervical Cells 10/14/2017 9: 54 AM CDT 10/14/2017 10:07 AM CDT us Noreen Buitrago PA-C LAB - BLOOD ORDERABLES [facility] Result [facility] [address] [place] [address] [place] [address] * Pap imaged thin layer screen with HPV - recommended age 30 - 65 years (select HPV order below) (10/14/2017 9:40 AM CDT) PAP SAL [facility] Report Patient Name: SKYLAR AKERS MR#: [id number] Specimen #: [id number] Collected: 10/14/2017 Received: 10/14/2017 Reported: 10/16/2017 10:22 [...] RONAK Garcia (ASCP) Processed and screened at [facility], [facility] CLINICAL HISTORY: Currently not having periods, Intra-Uterine Device, Previous normal pap Date of Last Pap: 10/09/2016, Papanicolaou Test Limitations: ??Cervical cytology is a screening test with limited sensitivity; regular screening is critical for cancer prevention; Pap tests are primarily effective for the diagnosis/preventi on of squamous cell carcinoma, not adenocarcinomas or other cancers. TESTING LAB LOCATION: [facility] [address] [address], [place] ??[phone] COLLECTION SITE: Client: ??[facility] Location: [facility] (R) [facility] Cytologic material (specimen) 10/14/2017 9:40 AM CDT 10/14/2017 3:39 PM CDT Noreen Buitrago PA-C LAB - OPTIME CLINICAL SPE GENO Final Result COP[facility] from Last 3 Months or Most Recently Relevant to Health Maintenance Insurance [employer] Advance Directives For more information, please contact: [phone] * Full Code (Latest Code Status on File) Date Activated Date Inactivated Comments 11/14/2021 3:00 AM 11/17/2021 3:53 PM All basic and advanced life-sustaining interventions are performed as appropriate Question Answer Comments Code status determined by: Discussion with conrad nt/ legal decision maker Care Teams Needle Loom Setter Relationship Specialty Start Date End Date Shannan Malcolm CNP [address] [place] [address] [phone] PCP - General Nurse Practitioner - Family 07/09/22 Shannan Malcolm CNP [address] [place] [address] [phone] Assigned PCP 04/07/22 Mattie Tellez APRN QUILL STRIPPER [address] [place] [address] [phone] Assigned Behavioral Health Provider 09/22/22
--- OUTSIDE RECORDS SUMMARY | 2024-04-11 17:56 | XMS_ITS | Encounter Summary ---
Author Organization [facility] Address Formerly [facility] [place] [address] Care Team Providers Care Computer Typesetter Name Role Phone Shannan Malcolm CNP Unavailable [phone] Shannan Malcolm CNP Primary Care Provider [phone] Mattie Tellez APRN, CNP Unavailable [phone] Reason for Referral * Mental Health Outpatient (Routine: Next available opening) - Pending Review Specialty Diagnoses / Procedures Referred By Contac t Referred To Contact Diagnoses Generalized anxiety disorder with panic attacks PTSD (post-traumatic stress disorder) MDD (major depressive disorder), recurrent episode, moderate (H) Attention deficit hyperactivity disorder (ADHD), predominantly inattentive type Alcohol use disorder in remission Mattie Tellez, ROSEMARIE BEAN DUMPER [address] [place] [address] Phone: tel: fax: Referral ID Status Reason Start Date Expiration Date V isits Requested Visits Authorized [id number] Pending Review 02/24/2024 02/23/2025 1 1 Question Answer Services: Intensive Programmatic Care Program: DBT Scheduling Instructions: [facility] will call you to coordinate your care as prescribed by your provider. If you don't hear from a ambulatory services representative within 2 business days, please call [phone]. Only select yes if the patient has [...] plan with any benefit or coverage questions. [facility] will call you to coordinate your care as prescribed by your provider. If you don't hear from a ambulatory services representative within 2 business days, please call [phone]. 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 [...] Consults / Referrals: Referral placed for DBT. [facility] will call you to coordinate your care as prescribed by your provider. If you don't hear from a ambulatory services representative within 2 business days, please call [phone]. Follow-up: Schedule an appointment with me and Behavioral Health Transcription in 4 weeks or sooner as needed. Call [facility] at [phone] to schedule. Follow up with primary care provider as planned or for acute medical concerns. Call the psychiatric nurse line with medication questions or concerns at [phone]. METRIXWAREhart may be used to communicate with your [...] cardiovascular risks, increased blood pressure. Financial Assistance [phone] [facility] Billing [phone] Central Billing Office, [facility]: [phone] [facility] [phone] Medical Records [phone] [facility] Patient Bill of Rights [email or web address] MENTAL HEALTH CRISIS RESOURCES: For a emergency help, please call 911 or go to the nearest Emergency Department. Emergency Walk-In Options: EmPATH Unit @ [facility] ([place]): [phone] - Specialized mental health emergency area designed to be calming Formerly [facility] ([place]): [phone] [facility] Acute Psychiatry Services ([place]): [phone] [facility]): [phone] County Crisis Information: [place]: [phone] [place]: [phone] Richy ([place]) - Adult: [phone] Child: [phone] Jeff - Adult: [phone] Child: [phone] [place]: [phone] [facility] resources: https://mt.gov/dhs/ubtsod-ub-aooul/adults/health-care/mental-health/resources/cr therese-contacts.jsp National Crisis Information: National Suicide & Crisis Lifeline: Call 988 For online chat options, visit https://suicidepreventionlifeline.org/chat/ Poison Control Center: Poison Control Center: Trans Lifeline: - Hotline for transgender people of all ages The Juan Project: - Hotline for LGBT youth For Non-Emergency Support: Fast Tracker: Mental Health & Substance Use Disorder Resources - https://www.TechtiumckSave On Medicaln.org/ Again thank you for choosing [facility] and please let us know how [...] someone else's life is in danger. Call 368 anytime to reach the national Suicide and Crisis hotline. Medicine refills To refill your medicine, call your pharmacy. You can also call [facility]'s Behavioral Access at , Saturday to Saturday, [...] your health care provider. Copyright ?? 2021 [employer]. All rights reserved. Daric [id number] - 05/31. documented in this encounter Progress [...] Shannan Malcolm CNP Therapist: none currently The [facility] psychiatry providers act as a specialty service for Primary Care Providers in the [facility] who seek to optimize medications for unstable patients. Once medications have been optimized, [facility] providers discharge the patient back to the referring Primary Care Provider for ongoing medication management. This type of system allows [facility] to serve a high volume of patients. Patient Identification: Patient is a 38 year old, in a relationship or White or female who presents for return visit with me. Patient prefers to be called: Melisa. 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 RECORDS AVAILABLE FOR REVIEW: EHR records through [facility] . Interim History: I last saw Skylar [...] 10 Mg Cp 30.00 30 Cl Hil [id number] [place] ([id number]) 0/0 Medicaid [place] 02/07/2024 01/27/2024 3 Dexmethylphenidate 5 Mg Tab 30.00 30 Cl Hil [id number] [place] ([id number]) [place] 01/27/2024 01/27/2024 3 Lorazepam 0.5 Mg Tablet 60.00 30 Cl Hil [id number] [place] ([id number]) 0/0 1.00 LME [place] Psychiatric ROS: [...] Patient is followed by Azra Shine NP, HYDRAULIC MECHANIC for ongoing prescription of a controlled medicine. [...] Follow-up with this provider + Behavioral Health Transcription in 1 month. Additionally sending referral for [...] primary care provider. Referral placed for DBT. [facility] will call you to coordinate your care as prescribed by your provider. If you don't hear from a ambulatory services representative within 2 business days, please call [phone]. Safety plan reviewed. To the Emergency Department as needed or call after hours crisis line at [phone] or [phone]. [place] Crisis Text Line. Text [place] to 134182 or Suicide LifeLine Chat: suicidepreventionGuiltlessbeauty.comline.org/chat Schedule an appointment with sc and Behavioral Health Transcription in 4 weeks or sooner as needed. Call [facility] at [phone] to schedule. Follow up with primary care provider as planned or for acute medical concerns. Call the psychiatric nurse line with medication questions or concerns at [phone]. METRIXWAREhart may be used to communicate with your provider, but this is not intended to be used for emergencies. Patient Education: Medication side effects and alternatives reviewed. Health promotion activities recommended and reviewed today. All questions addressed. Education and counseling completed regarding risks and benefitsof medications and psychotherapy options. Consent provided by patient/guardian Call the psychiatric nurse line with medication questions or concerns at [phone]. METRIXWAREhart may be used to communicate with your [...] keep place and cannot replace lost scripts. MedlineMisohoni.gov is information for patients. It is run [...] pressure. Community Resources: National Suicide Prevention Lifeline: 657.254.2147 (TTY: 735.570.9416). Call anytime for help. (www.suicidepreventionlifeline.org) National [place] on Mental Illness (www.jason.org): 820.799.1904 or 893-749-0506. Mental Health Association (www.mentalhealth.org): 291.894.1587 or 936-330-3941. [place] Crisis Text Line: Text [place] to 460805 Suicide LifeLine Chat: suicidepreFlatiron Healthline.org/chat Administrative Billing: Level of Medical Decision Making: - At least 1 chronic problem that is not stable - Engaged in prescription drug management during visit (discussed any medication benefits, side effects, alternatives, etc.) Patient Status: CCPS MD/DO/HYDRAULIC MECHANIC/PA providers offer care a specialty service for Primary Care Providers in the [facility] that seek to optimize psychotropic medications for unstable patients. Once medications havebeen optimized, our providers discharge the patient back to the referring Primary Care Provider forongoing medication management. This type of system allows our providers to serve a high volume of patients. Patient will continue to be seen for ongoing consultation and stabilization. Signed: Mattie Tellez, MSN, ADMINISTRATIVE OFFICE CLERK, PMHNP- Collaborative Care Psychiatry Service (CCPS) [facility] Chart documentation done in part with [employer] Voice Recognition software. Although reviewed after completion, some word and grammatical errors may remain. documented in this encounter Nursing Notes * GLORIA STEIN - 02/24/2024 10:30 AM CDT Is the patient currently in the state of [place]? YES Current patient location: [address] [place] [address] Visit mode:VIDEO If the visit is dropped, the patient can be reconnected by: VIDEO VISIT: Text to cell phone: Telephone Information: Will anyone else be joining the visit? No (If patient encounters technical issues they should call [phone]) How would you like to obtain your AVS? MyChart Are changes needed to the allergy or medication list? No Are refills needed on medications prescribed by this physician? YES Rooming Documentation: Questionnaire(s) completed. Reason for visit: RECHECK JARROD Steward documented in this encounter Plan of Treatment Scheduled Referrals Name Type Priority Associated Diagnoses Orde r Schedule Adult Mental Health [facility] Referral Referral Routine: Next available opening Generalized [...] documented as of this encounter Care Teams Computer Typesetter Relationship Specialty Start Date End Date Shannan Malcolm CNP [address] [place] [address] PCP - General Nurse Practitioner - Family 07/09/22 Shannan Malcolm CNP [address] [place] [address] [id number] Assigned PCP 04/07/22 Mattie Tellez APRN BEAN DUMPER [address] [place] [address] 528[address] Assigned Behavioral Health Provider 09/22/22 documented as of this encounter
--- OUTSIDE RECORDS SUMMARY | 2024-04-11 17:56 | XMS_ITS | Encounter Summary ---
Author Organization [facility] Address [address] [place] [address] Care Team Providers Care Atg Architect Name Role Phone Shannan Malcolm CNP Unavailable [phone] Shannan Malcolm CNP Primary Care Provider [phone] Mattie Tellez APRN MAINSPRING FORMER ARBOR END Unavailable [phone] Encounter Details Date Type Department Care Team ([facility] st Contact Info) Description 03/02/[address] [address] Shannan Malcolm, MAINSPRING FORMER ARBOR END [address] [place] [address] [phone] Social History Tobacco Use Types Packs/Day Years [...] on file Legal Sex Female 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 Is patient taking [place]'s Wort? No Is patient taking [place]'s Wort or any meds from List 1? [...] will be scheduled or transferred to a operating room scheduler at the end of this call. Maria Antonia Vázquez RN documented in this encounter Plan of Treatment Not on file documented as of this encounter Visit Diagnoses Diagnosis Generalized anxiety disorder with panic attacks documented in this encounter Additional Health Concerns Assessment Noted Time PHQ-9 Depression Total Score: 9 03/02/20 24 8:53 AM CDT documented as of this encounter Care Teams Atg Architect Relationship Specialty Start Date End Date Shannan Malcolm CNP [address] [place] [address] [phone] PCP - General Nurse Practitioner - Family 07/09/22 Shannan Malcolm CNP [address] [place] [address] Assigned PCP 04/07/22 Mattie Tellez APRN [employer] [address] [place] [address] Assigned Behavioral Health Provider 09/22/22 documented as of this encounter
--- OUTSIDE RECORDS SUMMARY | 2024-04-11 17:56 | XMS_ITS | Encounter Summary ---
Author Organization [facility] Address [facility] [place] [address] Care Team Providers Care Supervisor Slate Splitting Name Role Phone Shannan Malcolm WARP PREPARER Unavailable [phone] Shannan Malcolm CNP Primary Care Provider [phone] Mattie Tellez APRN WARP PREPARER Unavailable [phone] Encounter Details Date Type Department Care Team (Late st Contact Info) Description 02/26/2024 [facility] [place] Medical Advice [facility] & Addiction [place] [id number] [address] [address] Angie Hernández Social History Tobacco [...] on file Legal Sex Female 3:13 AM RN OUTPATIENT SURGERY Gender Identity Female 02/08/2022 7:17 AM [...] as of this encounter Care Teams Supervisor Slate Splitting Relationship Specialty Start Date End Date Shannan Malcolm CNP [facility] [place] [address] PCP - General Nurse Practitioner - Family 07/09/22 Shannan Malcolm CNP [address] [place] [address] Assigned PCP 04/07/22 Mattie Tellez APRN CNP [address] [place] [address] Assigned Behavioral Health Provider 09/22/22 documented as of this encounter
--- OUTSIDE RECORDS SUMMARY | 2024-04-11 17:56 | XMS_ITS | Encounter Summary ---
Author Organization [facility] Address [address] [place] [address] Care Team Providers Care Brake Mechanic Name Role Phone Shannan Malcolm PHYSICAL MEDICINE PHYSICIAN Unavailable [phone] Shannan Malcolm CNP Primary Care Provider Mattie Tellez APRN PHYSICAL MEDICINE PHYSICIAN Unavailable [phone] Reason for Visit * Reason Comments Covid Concern Encounter Details Date Type Department Care Team (Late st Contact Info) Description 03/02/2024 1:00 PM CDT Virtual Visit [address] [address] Shannan Malcolm, PHYSICAL MEDICINE PHYSICIAN [address] [place] [address] [phone] Infection due to 2019 novel coronavirus (Primary [...] Legal Sex Female 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 How would you like to obtain your AVS? MyChart If the video visit is dropped, the invitation should be resent by: Text to cell phone: [phone] Will anyone else be joining your video [...] by a primary care provider at an [facility] or [facility] within the past [...] as of this encounter Care Teams Brake Mechanic Relationship Specialty Start Date End Date Shannan Malcolm CNP [address] [place], [place] 727882 PCP - General Nurse Practitioner - Family 07/09/22 Shannan Malcolm CNP [address] [place] [address] 118172 Assigned PCP 04/07/22 Mattie Tellez APRN CNP [address] [place] [address] [id number] Assigned Behavioral Health Provider 09/22/22 documented as of this encounter
--- OUTSIDE RECORDS SUMMARY | 2024-04-11 17:57 | XMS_ITS | Encounter Summary ---
Author Organization [facility] Address [address] [place] [address] Care Team Providers Care Data Visualization Developer Name Role Phone Shannan Malcolm DERMATOLOGY PHYSICIAN ASSISTANT Unavailable [phone] Nabeel Nolan MD Unavailable [phone] Shannan Malcolm DERMATOLOGY PHYSICIAN ASSISTANT Primary Care Provider Mattie Tellez APRN DERMATOLOGY PHYSICIAN ASSISTANT Unavailable [phone] Reason for Visit * Reason Onset Date Comments Refill Request 09/15/2022 Encounter Details Date Type Department Care Team (Late st Contact Info) Description 09/15/2022 MyC Refill [address] [id number] Shannan Malcolm, DERMATOLOGY PHYSICIAN ASSISTANT [address] [place] [address] [phone] Refill Request Social History Tobacco Use Types [...] on file Legal 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 Gender Identity Female 02/08/2022 7:17 AM [...] for review/approval because: Drug not on the G refill protocol Maria Antonia Vázquez RN, BSN [facility] Triage documented in this encounter Plan of Treatment Not on file documented as of this encounter Visit Diagnoses Diagnosis Anxiety Anxiety state, unspecified Panic attack Panic disorder without agoraphobia documented in this encounter Additional Health Concerns Assessment Noted Time PHQ-9 Depression Total Score: 25 023 7:10 AM CDT documented as of this encounter Care Teams Data Visualization Developer Relationship Specialty Start Date End Date Shannan Malcolm CNP [address] [place] [address] [phone] PCP - General Nurse Practitioner - Family 07/09/22 Shannan Malcolm CNP [address] [place] [address] Assigned PCP 04/07/22 Nabeel Nolan MD [address] [place] [address] Assigned Behavioral Health Provider 06/02/22 09/21/22 Mattie Tellez APRN [facility] [address] [place] [address] Assigned Behavioral Health Provider 09/22/22 documented as of this encounter
--- OUTSIDE RECORDS SUMMARY | 2024-04-11 17:57 | XMS_ITS | Encounter Summary ---
Author Organization [facility] Address [address] [place] [address] Care Team Providers Care Manager Cardiac Cath Name Role Phone Shannan Malcolm CNP Unavailable [phone] Naebel Nolan MD Unavailable [phone] Shannan Malcolm CNP Primary Care Provider [phone] Mattie Tellez APRN MANAGER PRINT Unavailable [phone] Encounter Details Date Type Department Care Team (Late st Contact Info) Description 08/11/2022 Telephone [facility] Epilepsy Care [address], [address] [place] [address] Fadumo Doe Social History Tobacco [...] on file Legal Sex Female 3:13 AM COLORER Gender Identity Female 02/08/2022 7:17 AM CDT Sexual Orientation Choose not to disclose 2021 7:17 AM CDT COVID-19 Exposure Response Date Recorded In the last 10 days, have yo u been in contact with someone who was confirmed or suspected to have Coronavirus/COVID-19? Yes 07/16/2022 4:46 PM COLORER documented as of this encounter Miscellaneous Notes * Telephone Encounter - Franco Bailey - 08/11/2022 12:34 PM CST Reached out to patient to schedule New Seizure, phone number in chart no longer valid. Unable to leave message. RER documented in this encounter Plan of Treatment Not on file documented as of this encounter Visit Diagnoses Not on filedocumented in this encounter Additional Health Concerns Assessment Noted Time PHQ-9 Depression Total Score: 16 023 7:10 AM CDT documented as of this encounter Care Teams Manager Cardiac Cath Relationship Specialty Start Date End Date Shannan Malcolm CNP [address] [place] [address] PCP - General Nurse Practitioner - Family 07/09/22 Shannan Malcolm CNP [address] [place] [address] Assigned PCP 04/07/22 Nabeel Nolan MD [address] [place] [address] Assigned Behavioral Health Provider 06/02/22 09/21/22 Mattie Tellez APRN MANAGER PRINT [address] [place] [address] Assigned Behavioral Health Provider 09/22/22 documented as of this encounter
--- OUTSIDE RECORDS SUMMARY | 2024-04-11 17:57 | XMS_ITS | Encounter Summary ---
Author Organization [facility] Address [address] [place] [address] Care Team Providers Care Extractor Puller Name Role Phone Shannan Malcolm CNP Unavailable [phone] Nabeel Nolan MD Unavailable [phone] Shannan Malcolm CNP Primary Care Provider [phone] Mattie Tellez APRN SPRING MACHINE OPERATOR Unavailable [phone] Encounter Details Date Type Department Care Team (Late st Contact Info) Description 08/06/2022 MyC Medical Advice [address] [place] [address] Shannan Malcolm, SPRING MACHINE OPERATOR [address] [place] [address] Social History Tobacco Use Types Packs/Day [...] on file Legal Sex Female 3:13 AM INTERNAL REVIEW AND AUDIT COMPLIANCE Gender Identity Female 02/08/2022 7:17 AM CDT Sexual Orientation Choose not to disclose 2021 7:17 AM CDT COVID-19 Exposure Response Date Recorded In the last 10 days, have yo u been in contact with someone who was confirmed or suspected to have Coronavirus/COVID-19? Yes 07/16/2022 4:46 PM INTERNAL REVIEW AND AUDIT COMPLIANCE documented as of this encounter Plan of Treatment Not on file documented as of this encounter Visit Diagnoses Not on filedocumented in this encounter Additional Health Concerns Assessment Noted Time PHQ-9 Depression Total Score: 16 023 7:10 AM CDT documented as of this encounter Care Teams Extractor Puller Relationship Specialty Start Date End Date Shannan Malcolm CNP [address] [place], [place] 023842 PCP - General Nurse Practitioner - Family 07/09/22 Shannan Malcolm CNP [address] [place] [address] Assigned PCP 04/07/22 Nabeel Nolan MD [address] [place] [address] Assigned Behavioral Health Provider 06/02/22 09/21/22 Mattie Tellez APRN SPRING MACHINE OPERATOR [address] [place] [address] Assigned Behavioral Health Provider 09/22/22 documented as of this encounter
--- OUTSIDE RECORDS SUMMARY | 2024-04-11 17:57 | XMS_ITS | Encounter Summary ---
Author Organization [place] Address [address] [place] [address] Care Team Providers Care Overhead Irrigator Name Role Phone Shannan Malcolm CNP Unavailable [phone] Shannan Malcolm CNP Primary Care Provider + [phone] Mattie Tellez APRN AUDIO VIDEO TECH Unavailable Reason for Visit * Reason Onset Date Comments Medication Request 10/26/2023 an afternoon ADHD medication Encounter Details Date Type Department Care Team (Late st Contact Info) Description 10/26/2023 [facility] [place] [facility] [address] [place] [address] Mattie Tellez APRN AUDIO VIDEO TECH [address] [place] [address] Medication Request (an afternoon ADHD [...] on file Legal Sex Female 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 - Oral Sent to pharmacy as: Dexmethylphenidate HCl 2.5 MG Oral Tablet (FOCALIN) Class: E-Prescribe Earliest Fill Date: 10/28/2023 Order: [id number] E-Prescribing Status: Receipt confirmed by pharmacy (10/28/2023 10:32 AM CDT) Medication Administration Instructions as needed in the afternoon for ADHD. Pharmacy [facility] [id number] HERI MONTGOMERY RN sent a MyC message [...] documented as of this encounter Care Teams Overhead Irrigator Relationship Specialty Start Date End Date Shannan Malcolm CNP [address] [place] [address] PCP - General Nurse Practitioner - Family 1/30/23 Shannan Malcolm CNP [address] [place], [place] 996482 Assigned PCP 04/07/22 Mattie Tellez APRN CNP [address] [place], [place] 991885 Assigned Behavioral Health Provider 09/22/22 documented as of this encounter
--- OUTSIDE RECORDS SUMMARY | 2024-04-11 17:57 | XMS_ITS | Encounter Summary ---
Author Organization [place] Address [facility] [place] [address] Care Team Providers Care Septic Tank Servicer Name Role Phone Shannan Malcolm CNP Unavailable [phone] Shannan Malcolm CNP Primary Care Provider [phone] Mattie Tellez APRN LUGGAGE LINER Unavailable [phone] Encounter Details Date Type Department Care Team (Late st Contact Info) Description 01/17/2024 [facility] [place] [facility] [address] [place] [address] Mattie Tellez APRN LUGGAGE LINER [address] [facility] [address] [place], [place] [address] Social History Tobacco Use Types Packs/Day Years [...] on file Legal Sex Female 3:13 AM 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 She would like to brass pickler her Focalin XR 5 mg and 10 mg today. It is dated on 01/19/24 so pharmacy won't dispense it. She only has 2 days left. [place] [facility] last sold 12/20/23 for both. She would like it dated for today if possible. Yolanda Ahn RN on 01/17/2024 at 11:35 AM * Telephone Encounter - Chantel Kilpatrick - 01/17/2024 11:07 AM CDTSummary: rx request needs earlier date for brass pickler Reason for call: Medication If this is a refill request, has the caller requested the refill from the pharmacy already? Yes Will the patient be using a [facility]? Yes Name of the pharmacy and phone number for the current request: [facility] [phone] Name of the medication requested: focalin xr 5 and focalyn xr 10 Other request: has two left, today is day 28. Rx refill is dated for the when they are not open. Pt would like to brass pickler today. Phone number to reach patient: Cell [...] documented as of this encounter Care Teams Septic Tank Servicer Relationship Specialty Start Date End Date Shannan Malcolm CNP [address] [place] [address] PCP - General Nurse Practitioner - Family 07/09/22 Shannan Malcolm CNP [address] [place] [address] 803672 Assigned PCP 04/07/22 Mattie Tellez APRN LUGGAGE LINER [address] [place] [address] [id number] Assigned Behavioral Health Provider 09/22/22 documented as of this encounter
--- OUTSIDE RECORDS SUMMARY | 2024-04-11 17:57 | XMS_ITS | Encounter Summary ---
Author Organization [place] Address [address] [place] [address] Care Team Providers Care Salesperson Automobiles Name Role Phone Shannan Malcolm CNP Unavailable [phone] Shannan Malcolm CNP Primary Care Provider + [phone] Mattie Tellez APRN LABORER/GRADE CHECK Unavailable [phone] Reason for Visit * Reason Onset Date Comments Medication Question 12/26/2023 Encounter Details Date Type Department Care Team (Late st Contact Info) Description 12/26/2023 [facility] Medical Advice [facility] Mental Health & [facility] [address] [place] [address] Mattie Tellez APRN LABORER/GRADE CHECK [address] [place] [address] Medication Question Social History Tobacco [...] on file Legal 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
--- OUTSIDE RECORDS SUMMARY | 2024-04-11 17:57 | XMS_ITS | Encounter Summary ---
Author Organization [place] Address [address] [place] [address] Care Team Providers Care Farmworker Egg Producing Farm Name Role Phone Shannan Malcolm CNP Unavailable [phone] Shannan Malcolm CNP Primary Care Provider + [phone] Mattie Tellez APRN IMPROVEMENT SPEC Unavailable [phone] Reason for Visit * Reason Onset Date Comments Forms 12/21/2022 Encounter Details Date Type Department Care Team (Late st Contact Info) Description 12/21/2022 Telephone [facility] Mental Health & [facility] [address] [place] [address] Mattie Tellez, ROSEMARIE IMPROVEMENT SPEC [address] [place], [place] [address] Forms Social History Tobacco Use Types Packs/Day [...] on file Legal Sex Female 3:13 AM HOSPITAL CARRIER Gender Identity Female 02/08/2022 7:17 AM CDT Sexual Orientation Choose not to disclose 2021 7:17 AM CDT documented as of this encounter Miscellaneous Notes * Telephone Encounter - Keily Yeboah Armando - 12/21/2022 2:08 PM CDT Reason for call: Other Patient called regarding (reason for call): call back and Form Additional comments: [employer] calling to request changes to a form for patient: Question 12: first day of certification needs to be changed to 11/30/2022 from 12/19/2022. Please intial and date next to that question and fax back. Fax is listed at the top of the form. Phone number to reach patient: Other phone number: SETVI#: [phone]* Best Time: andrew Can we leave a detailed message on this number? YES Travel screening: Not Applicable documented in this encounter Plan of Treatment Not on file documented as of this encounter Visit Diagnoses Not on filedocumented in this encounter Additional Health Concerns Assessment Noted Time PHQ-9 Depression Total Score: 4 12/11/19 7:53 AM CDT documented as of this encounter Care Teams Farmworker Egg Producing Farm Relationship Specialty Start Date End Date Shannan Malcolm CNP [address] [place] [address] PCP - General Nurse Practitioner - Family 07/09/22 Shannan Malcolm CNP [address] [place] [address] Assigned PCP 04/07/22 Mattie Tellez APRN IMPROVEMENT SPEC [address] [place] [address] Assigned Behavioral Health Provider 09/22/22 documented as of this encounter
--- OUTSIDE RECORDS SUMMARY | 2024-04-11 17:57 | XMS_ITS | Encounter Summary ---
Author Organization [place] Address [address] [place] [address]. [place] [address] Care Team Providers Care Road Freight Firer Name Role Phone Shannan Malcolm CNP Unavailable [phone] Shannan Malcolm CNP Primary Care Provider [phone] Mattie Tellez APRN DISASTER RECOVERY COORDINATOR Unavailable [phone] Reason for Visit * Reason Onset Date Comments Early refill request 10/10/2023 clonazePAM (KLONOPIN) 0.5 MG tablet Encounter Details Date Type Department Care Team (Late st Contact Info) Description 10/10/2023 [facility] Mental Health & [facility] [address] [place] [address] [address] [place] [address] Mattie Tellez, ROSEMARIE DISASTER RECOVERY COORDINATOR [address] [place] [address] Early refill request (clonazePAM (KLONOPIN... [...] on file Legal Sex Female 3:13 AM AIR AND WATER FILLER Gender Identity Female 02/08/2022 7:17 AM CDT Sexual Orientation Choose not to disclose 2021 7:17 AM CDT documented as of this encounter Miscellaneous Notes * Telephone Encounter - Ed Castro RN - 10/10/2023 11:08 AM CDT 1) Per Mattie Tellez CNP: I will send short prescription with ok for early fill if approved by pharmacy/insurance. Will message patient. 2) Phoned [facility] in [place]. Gave verbal order Ok for early fill per Mattie Tellez CNPPharmacy medical coding technician verbalized understanding and stated that the [...] original note were not included. Reviewed patient's [facility] message. She is requesting an early refill of Clonazepam. ED CASTRO RN on 10/10/2023 at 9:28 AM documented in this encounter Plan of Treatment Not on file documented as of this encounter Visit Diagnoses Not on filedocumented in this encounter Additional Health Concerns Assessment Noted Time PHQ-9 Depression Total Score: 4 12/11/19 23 7:53 AM CDT documented as of this encounter Care Teams Road Freight Firer Relationship Specialty Start Date End Date Shannan Malcolm CNP [address] [place] [address] [id number] PCP - General Nurse Practitioner - Family 07/09/22 Shannan Malcolm CNP [address] [place] [address] 947482 Assigned PCP 04/07/22 Mattie Tellez APRN CNP [address] [place] [address] 112645 Assigned Behavioral Health Provider 09/22/22 documented as of this encounter
--- OUTSIDE RECORDS SUMMARY | 2024-04-11 17:57 | XMS_ITS | Encounter Summary ---
Author Organization [place] Address [address] [place] [address] Care Team Providers Care Duco Polisher Name Role Phone Shannan Malcolm CNP Unavailable [phone] Shannan Malcolm CNP Primary Care Provider [phone] Mattie Tellez APRN SENIOR MECHANICAL TECHNICIAN Unavailable [phone] Encounter Details Date Type Department Care Team (Latest Contact Info) Description 03/14/2023 [facility] [place] [facility] Mental [facility] [address] [place] [address] Mattie Tellez APRN SENIOR MECHANICAL TECHNICIAN [address] [place], [place] 5839[address] Attention deficit hyperactivity disorder (ADHD), predominantly inattentive [...] on file Legal Sex Female 3:13 AM COUNSELOR NURSES[employer] ASSOCIATION Gender Identity Female 02/08/2022 7:17 AM CDT Sexual Orientation Choose not to disclose 2021 7:17 AM CDT documented as of this encounter Miscellaneous Notes * Telephone Encounter - Yolanda Ahn RN - 03/14/2023 11:00 AM CDT Patient's pharmacy is out of stock on her Concerta 36 mg. She would like it sent to the [facility] in [place]. [place] FISHERIES TECHNICAL OFFICER sold date was 02/12/23. methylphenidate HCL ER, [...] Yes Will the patient be using a [facility]? [place] of the pharmacy and phone number for the current request: [facility] [address] [facility]. [phone]. Name of the medication requested: ADHD medication [...] documented as of this encounter Care Teams Duco Polisher Relationship Specialty Start Date End Date Shannan Malcolm CNP [address] [place] [address] PCP - General Nurse Practitioner - Family 07/09/22 Shannan Malcolm CNP [address] [place] [address] 328222 Assigned PCP 04/07/22 Mattie Tellez APRN SENIOR MECHANICAL TECHNICIAN [address] [place] [address] Assigned Behavioral Health Provider 09/22/22 documented as of this encounter
--- OUTSIDE RECORDS SUMMARY | 2024-04-11 17:57 | XMS_ITS | Encounter Summary ---
Author Organization [place] Address [facility] [address] Care Team Providers Care Terminal Worker Name Role Phone Shannan Malcolm CNP Unavailable [phone] Shannan Malcolm CNP Primary Care Provider [phone] Mattie Tellez APRN AIRLINE FLIGHT ATTENDANT Unavailable [phone] Encounter Details Date Type Department Care Team (Late st Contact Info) Description 11/13/2023 [facility] Medical Advice 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
--- OUTSIDE RECORDS SUMMARY | 2024-04-11 17:57 | XMS_ITS | Encounter Summary ---
Author Organization [place] Address [facility] [place] [address] Care Team Providers Care Hospital Educator Name Role Phone Shannan Malcolm CNP Unavailable [phone] Shannan Malcolm CNP Primary Care Provider + [phone] Mattie Tellez APRN NEEDLE FELT MAKING MACHINE OPERATOR Unavailable [phone] Reason for Visit * Reason Comments RECHECK Encounter Details Date Type Department Care Team (Latest Contact Info) Description 01/27/2024 8:00 AM CDT Virtual Visit [facility] Mental Health & [facility] [address] [place] [address] [address] [address] Mattie Tellez, ROSEMARIE NEEDLE FELT MAKING MACHINE OPERATOR [address] [place], [place] [address] Generalized anxiety disorder with panic attacks (Primary [...] on file Legal Sex Female 3:13 AM BULLET MAKER Gender Identity Female 02/08/2022 7:17 AM [...] Instructions * Patient Instructions* Mattie Tellez APRN NEEDLE FELT MAKING MACHINE OPERATOR - 01/27/2024 8:00 AM CDT For crisis resources, please see the information at the end of this document Thank you for coming to the [facility]. TREATMENT PLAN: Medications: DISCONTINUE mirtazapine. START [...] 4 weeks or sooner as needed. Call [facility] [phone] to schedule. Follow up with primary care provider as planned or for acute medical concerns. Call the psychiatric nurse line with medication questions or concerns at [phone]. MyChart may be used to communicate with [...] patientis advised that I will not prescribe vamp throater/high dose benzodiazepine due to risk in addition [...] cardiovascular risks, increased blood pressure. Financial Assistance [phone] [facility] [employer] Billing [phone] Central Billing Office, ealth: [phone] [facility] [phone] Medical Records [phone] [facility] Patient Bill of Rights [email or web address] MENTAL HEALTH CRISIS RESOURCES: For a emergency help, please call 911 or go to the nearest Emergency Department. Emergency Walk-In Options: Oz Unit @ [facility] ([place]): [phone] - Specialized mental health emergency area designed to be [facility] ([place]): [phone] [facility] Acute Psychiatry Services ([place]): [phone] [facility] [place]): [phone] [facility] Crisis Information: Karen: [phone] Endy: [phone] Richy HEAD) - Adult: [phone] Child: [phone] Jeff - Adult: [phone] Child: [phone] Miller: [phone] List of all [facility] resources: https://oh.[facility]/dhs/mmcgnp-uu-sqcah/adults/health-care/mental-health/resources/cr therese-contacts.jsp National Crisis Information: National Suicide & Crisis Lifeline: Call 768 For online chat options, visit https://suicidepreventionWashington University School Of Medicineline.org/chat/ Poison Control Center: Poison Control Center: Trans Lifeline: - Hotline for transgender people of all ages The Juan Project: - Hotline for LGBT youth For Non-Emergency Support: Fast Tracker: Mental Health & Substance Use Disorder Resources - https://www.fasttrackermn.org/ Again thank you for choosing [facility] and please let us know how [...] call your pharmacy. You can also call [facility]'s Behavioral Access at , Saturday to Saturday, [...] your health care provider. Copyright ?? 2021 [facility]. All rights reserved. [employer] [id number] - 05/31. documented in this encounter Progress [...] / Care Team: Primary Care Provider: Shannan Malcoml CNP Therapist: none currently The [facility] psychiatry providers act as a specialty service for Primary Care Providers in the [facility] who seek to optimize medications for unstable patients. Once medications have been optimized, [facility] providers discharge the patient back to the referring Primary Care Provider for ongoing medication management. This type of system allows [facility] to serve a high volume of patients. Patient Identification: Patient is a 38 year old, in a relationship or White or female who presents for return visit with hi. Patient prefers to be called: Melisa. 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 RECORDS AVAILABLE FOR REVIEW: EHR records through [employer] . Interim History: I last saw Skylar [...] appetite and weight gain from clonidine The [place] Prescription Monitoring Program has been reviewed and [...] Patient is followed by Azra Shine NP, STRATEGIC SOURCING CONSULTANT for ongoing prescription of a controlled medicine. [...] or call after hours crisis line at [phone] or [phone]. [place] Crisis Text Line. Text [place] to 659190 or Suicide LifeLine Chat: suicidepreventionWashington University School Of Medicineline.org/chat Schedule an appointment with me in 4 weeks or sooner as needed. Call [facility] [phone] to schedule. Follow up with primary care provider as planned or for acute medical concerns. Call the psychiatric nurse line with medication questions or concerns at [phone]. Acaciahart may be used to communicate with your provider, but this is not intended to be used for emergencies. Patient Education: Medication side effects and alternatives reviewed. Health promotion activities recommended and reviewed today. All questions addressed. Education and counseling completed regarding risks and benefitsof medications and psychotherapy options. Consent provided by patient/guardian Call the psychiatric nurse line with medication questions or concerns at [phone]. MyChart may be used to communicate with your provider, but this is not intended to be used for emergencies. SEROTONIN SYNDROME: Discussed risks of Serotonin syndrome (ie, serotonin toxicity) which is a potentially life-threatening condition associated with increased serotonergic activity in the central nervous system (SAND CUTTING MACHINE OPERATOR). It is seen with therapeutic medication use, [...] keep place and cannot replace lost scripts. Sent[place].gov is information for patients. It is run [...] is advised that I will not prescribe penitentiary/high dose benzodiazepine due to risk in addition [...] pressure. Community Resources: National Suicide Prevention Lifeline: 852.616.2506 (TTY: 738.914.5630). Call anytime for help. (www.suicidepreventionlifeline.org) National [place] on Mental Illness (www.jason.org): 516.232.5735 or 373-867-4826. Mental Health Association (www.mentalhealth.org): 207.624.5482 or 367-121-7633. [place] Crisis Text Line: Text [place] to 234678 Suicide LifeLine Chat: suicidepreZoomingoline.org/chat Administrative Billing: Level of Medical Decision Making: - At least 1 chronic problem that is not stable - Engaged in prescription drug management during visit (discussed any medication benefits, side effects, alternatives, etc.) Patient Status: CCPS MD/DO/STRATEGIC SOURCING CONSULTANT/PA providers offer care a specialty service for Primary Care Providers in the [facility] that seek to optimize psychotropic medications for unstable patients. Once medications havebeen optimized, our providers discharge the patient back to the referring Primary Care Provider forongoing medication management. This type of system allows our providers to serve a high volume of patients. Patient will continue to be seen for ongoing consultation and stabilization. Signed: Mattie Tellez, MSN, GRIEVANCE AND APPEALS SPECIALIST, PMHNP- Collaborative Care Psychiatry Service (CCPS) [facility] Chart documentation done in part with [employer] Voice Recognition software. Although reviewed after completion, [...] 01/27/2024 8:00 AM CDT Current patient location: [address] [place] [address] Is the patient currently in the state of [place]? YES Visit mode:VIDEO If the visit is dropped, the patient can be reconnected by: VIDEO VISIT: Text to cell phone: Telephone Information: Will anyone else be joining the visit? NO (If patient encounters technical issues they should call [phone] :[phone]) How would you like to obtain your AVS? MyChart Are changes needed to the allergy or medication list? No Are refills needed on medications prescribed by this physician? NO Rooming Documentation: Questionnaire(s) completed Reason for visit: DREW BONEF documented in this encounter Plan of Treatment [...] documented as of this encounter Care Teams Hospital Educator Relationship Specialty Start Date End Date Shannan Malcolm CNP [address] [place] [address] [phone] PCP - General Nurse Practitioner - Family 07/09/22 Shannan Malcolm CNP [address] [place] [address] [id number] Assigned PCP 04/07/22 Mattie Tellez APRN CNP [address] [place] [address] [id number] Assigned Behavioral Health Provider 09/22/22 documented as of this encounter
--- OUTSIDE RECORDS SUMMARY | 2024-04-11 17:57 | XMS_ITS | Encounter Summary ---
Author Organization [facility] Address [address] [place] [address] 46769 Care Team Providers Care Hand Presser Name Role Phone Shannan Malcolm CNP Unavailable [phone] Shannan Malcolm CNP Primary Care Provider [phone] Mattie Tellez APRN ADOBE LAYER Unavailable [phone] Reason for Visit * Reason Onset Date Comments Telephone 03/08/2023 Jason Rosales Encounter Details Date Type Department Care Team (Late st Contact Info) Description 03/08/2023 [facility] Medical Advice [facility] [address] [place] [address] [address] [place] [address] Mattie Tellez APRN ADOBE LAYER [address] [place] [address] Telephone (Jason Rosales) Social History [...] on file Legal Sex Female 3:13 AM LABOR RELATIONS DIRECTOR Gender Identity Female 02/08/2022 7:17 AM CDT Sexual Orientation Choose not to disclose 2021 7:17 AM CDT documented as of this encounter Miscellaneous Notes * Telephone Encounter - Mariann Maloney RN - 03/11/2023 12:41 PM CDT RN reviewed that there are incomplete forms located in [employer] from [place] with a date of 02/23/23. One has [...] as of this encounter Care Teams Hand Presser Relationship Specialty Start Date End Date Shannan Malcolm CNP [address] [place] [address] [id number] PCP - General Nurse Practitioner - Family 07/09/22 Shannan Malcolm CNP [address] [place] [address] 26139 Assigned PCP 04/07/22 Mattie Tellez APRN ADOBE LAYER [address] [place] [address] 22041 Assigned Behavioral Health Provider 09/22/22 documented as of this encounter
--- OUTSIDE RECORDS SUMMARY | 2024-04-11 17:57 | XMS_ITS | Encounter Summary ---
Author Organization [facility] Address [address] [place] [address] 08643 Care Team Providers Care Marriage Counselor Minister Name Role Phone Shannan Malcolm CNP Unavailable [phone] Shannan Malcolm CNP Primary Care Provider [phone] Mattie Tellez APRN CASE PLANNER Unavailable [phone] Reason for Visit * Reason Onset Date Comments Prior Auth - Medication 02/07/2023 methylph enidate HCL ER, OSM, (CONCERTA) 27 MG CR tablet- PA APPROVED Encounter Details Date Type Department Care Team (Late st Contact Info) Description 02/07/2023 Telephone [facility] [address] [place] [address] Mattie Tellez APRN CASE PLANNER [address] [place] [address] Prior Auth - Medication (methylphenidate [...] on file Legal Sex Female 3:13 AM HEALTHCARE ADVISORY SERVICES MANAGER Gender Identity Female 02/08/2022 7:17 [...] Approved Dose/Quantity: 30 Reference #: Insurance Company: [employer] Non-Specialty PA's - Expected CoPay: CoPay Card Available: Financial Assistance Needed: Which Pharmacy is filling the prescription: [facility] #[facility] [place], [place] - [address] EDUCATION AND TRAINING COORDINATOR [address] Pharmacy Notified: Yes Patient Notified: Yes pharmacy will notify when ready * Telephone Encounter - Latesha Lopez - 02/12/2023 2:58 PM CDT Images from the original note were not included. Central Prior Authorization Team - PA Initiation Medication: METHYLPHENIDATE HCL ER 27 MG PO TB24 Insurance Company: [employer] Non-Specialty PA's - Pharmacy Filling the Rx: [facility] [place] - [address] EDUCATION AND TRAINING COORDINATOR [address] Filling Pharmacy Filling Pharmacy Fax: Start Date: 02/12/2023 * Telephone Encounter - Mariann Maloney RN - 02/12/2023 12:31 PM CDT RN checked with pharmacy and the patient used [facility] to pickling solution maker a 30-day supply for $36.09. Will continue [...] documented as of this encounter Care Teams Marriage Counselor Minister Relationship Specialty Start Date End Date Shannan Malcolm CNP [address] [place] [address] 980[address] PCP - General Nurse Practitioner - Family 07/09/22 Shannan Malcolm CNP [address] [place] [address] [phone] Assigned PCP 04/07/22 Mattie Tellez APRN CASE PLANNER [address] [place] [address] Assigned Behavioral Health Provider 09/22/22 documented as of this encounter
--- OUTSIDE RECORDS SUMMARY | 2024-04-11 17:57 | XMS_ITS | Encounter Summary ---
Author Organization [facility] Address [facility] [place] [address] Care Team Providers Care Drywall Taper Name Role Phone Shannan Malcolm CNP Unavailable [phone] Shannan Malcolm CNP Primary Care Provider + [phone] Mattie Tellez APRN REPAIRER CYLINDER HEADS Unavailable [phone] Encounter Details Date Type Department Care Team (Late st Contact Info) Description 01/10/[address] [facility] Mental Health & [facility] [address] [place] [address] Mattie Tellez APRN REPAIRER CYLINDER HEADS [address] 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
--- OUTSIDE RECORDS SUMMARY | 2024-04-11 17:57 | XMS_ITS | Encounter Summary ---
Author Organization [place] Address [address] [place] [address] Care Team Providers Care Acid Treater Name Role Phone Shannan Malcolm CNP Unavailable [phone] Shannan Malcolm CNP Primary Care Provider + [phone] Mattie Tellez APRN CONSTRUCTION TECH Unavailable [phone] Encounter Details Date Type Department Care Team (Late st Contact Info) Description 12/31/2022 [facility] Medical Advice [facility] Mental Health & Addiction [facility] [address] [address] [place] [address] Mattie Tellez APRN CONSTRUCTION TECH [address] [facility] [address] [place], [place] 758[address] Social History Tobacco Use Types Packs/Day Years [...] on file Legal 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 She is clarifying that it was updated and re-faxed. From note from 12/21/22: Updated and re-faxed as directed. Thank you Mattie Tellez APRN, PMHNP- [facility] Yolanda Ahn RN on 12/31/2022 at 2:55 PM documented in this encounter Plan of Treatment Not on file documented as of this encounter Visit Diagnoses Not on filedocumented in this encounter Additional Health Concerns Assessment Noted Time PHQ-9 Depression Total Score: 4 12/11/19 7:53 AM CDT documented as of this encounter Care Teams Acid Treater Relationship Specialty Start Date End Date Shannan Malcolm CNP [address] [place] [address] [phone] PCP - General Nurse Practitioner - Family 07/09/22 Shannan Malcolm CNP [address] [place] [address] 28069 Assigned PCP 04/07/22 Mattie Tellez APRN CONSTRUCTION TECH [address] [place] [address] 99383 Assigned Behavioral Health Provider 09/22/22 documented as of this encounter
--- OUTSIDE RECORDS SUMMARY | 2024-04-11 17:57 | XMS_ITS | Encounter Summary ---
Author Organization [facility] Address [facility] [place] [address] Care Team Providers Care Data Entry Manager Name Role Phone Shannan Malcolm CNP Unavailable [phone] Shannan Malcolm CNP Primary Care Provider [phone] Mattie Tellez APRN RESEARCH MANUFACTURING OPERATOR Unavailable [phone] Encounter Details Date Type Department Care Team (Late st Contact Info) Description 09/27/2023 [facility] Medical Advice [facility] Mental Health & [facility] [address] [address] [place] [address] Mattie Tellez APRN RESEARCH MANUFACTURING OPERATOR 500 [facility] [place], [place] [address] Social History Tobacco Use Types Packs/Day Years [...] file Legal Sex Female 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
--- OUTSIDE RECORDS SUMMARY | 2024-04-11 17:57 | XMS_ITS | Encounter Summary ---
Author Organization [facility] Address [address] [place] [address] 29[address] Care Team Providers Care Analytical Manager Name Role Phone Shannan Malcolm CNP Unavailable [phone] Nabeel Nolan MD Unavailable [phone] Shannan Malcolm MOTOR PATROL OPERATOR Primary Care Provider [phone] Mattie Tellez APRN MOTOR PATROL OPERATOR Unavailable [phone] Reason for Visit * Reason Onset Date Comments Prior Auth - Medication 09/21/2022 Methylph enidate HCI ER (OSM) 18MG ER Tablets Encounter Details Date Type Department Care Team (Late st Contact Info) Description 09/21/[address] [address] Shannan Malcolm, MOTOR PATROL OPERATOR [address] [place] [address] Prior Auth - Medication (Methylphenidate HCI [...] file Legal Sex Female 3:13 AM REGISTERED NURSE FETAL Gender Identity Female 02/08/2022 7:17 AM CDT [...] she will stick with the Methylphenidate instead. Account Receivable Associate advised good RX, patient said she will [...] ER (OSM) 18MG ER Tablets Insurance Company: [employer] - Pharmacy Filling the Rx: [facility] [place], [place] - [address] Filling Pharmacy Filling Pharmacy Fax: Start Date: 09/26/2022 * Telephone Encounter - Eldon Frost - 09/24/2022 2:41 PM CDT Prior Authorization Retail Medication Request Medication/Dose: [facility] PA for Methylphenidate HCI ER (OSM) 18MG ER Tablets ICD code (if different than what is on RX): Previously Tried and Failed: Rationale: Insurance Name: Insurance ID: Pharmacy Information (if different than what is on RX) Name: [facility] Phone: [phone] [id number] * Telephone Encounter - Abrahan Velez - 09/21/2022 2:22 PM CDT Forms/Letter Request Type of form/letter: [facility] PA for Methylphenidate HCI ER (OSM) 18MG ER Tablets Have you been seen for this request: N/A Do we have the form/letter: Yes: Placed in TC bin (yellow folder) Who is the form from? [facility] PA for Methylphenidate HCI [...] documented as of this encounter Care Teams Analytical Manager Relationship Specialty Start Date End Date Shannan Malcolm CNP [address] [place] [address] 29640 PCP - General Nurse Practitioner - Family 07/09/22 Shannan Malcolm CNP [address] [place] [address] 20402 Assigned PCP 04/07/22 Nabeel Nolan MD [address] [place] [address] 77114 Assigned Behavioral Health Provider 06/02/22 09/21/22 Mattie Tellez APRN MOTOR PATROL OPERATOR [address] [place] [address] 83248 Assigned Behavioral Health Provider 09/22/22 documented as of this encounter
--- OUTSIDE RECORDS SUMMARY | 2024-04-11 17:57 | XMS_ITS | Encounter Summary ---
Author Organization [facility] Address [address] [place] [address] 68131 Care Team Providers Care Liquor Tester Name Role Phone Shannan Malcolm CNP Unavailable [phone] Nabeel Nolan MD Unavailable Shannan Malcolm RENEWAL SPECIALIST Primary Care Provider [phone] Mattie Tellez APRN RENEWAL SPECIALIST Unavailable [phone] Reason for Visit * Reason Onset Date Comments MyChart Communication 09/19/2022 Encounter Details Date Type Department Care Team (Late st Contact Info) Description 09/19/2022 My[facility] Medical Advice [address] [address] Shannan Malcolm, RENEWAL SPECIALIST [address] [place] [address] MyChart Communication Social History Tobacco Use [...] on file Legal 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 Gender Identity Female 02/08/2022 7:17 AM CDT [...] Thank you Maria Antonia Vázquez RN, BSN [place] Triage documented in this encounter Plan of Treatment Not on file documented as of this encounter Visit Diagnoses Not on filedocumented in this encounter Additional Health Concerns Assessment Noted Time PHQ-9 Depression Total Score: 25 023 7:10 AM CDT documented as of this encounter Care Teams Liquor Tester Relationship Specialty Start Date End Date Shannan Malcolm CNP [address] [place] [address] 420862 PCP - General Nurse Practitioner - Family 07/09/22 Shannan Malcolm CNP [address] [place] [address] 32153 Assigned PCP 04/07/22 Nabeel Nolan MD [address] [place] [address] 0[address] Assigned Behavioral Health Provider 06/02/22 09/21/22 Mattie Tellez APRN RENEWAL SPECIALIST [address] [place] [address] 20144 Assigned Behavioral Health Provider 09/22/22 documented as of this encounter
--- OUTSIDE RECORDS SUMMARY | 2024-04-11 17:57 | XMS_ITS | Encounter Summary ---
Author Organization [facility] Address [address] [place] [address] Care Team Providers Care Wage And Salary Administrator Name Role Phone Shannan Malcolm CNP Unavailable [phone] Shannan Malcolm CNP Primary Care Provider + [phone] Mattie Tellez APRN ACQUISITIONS ANALYST Unavailable [phone] Reason for Visit * Reason Onset Date Comments Refill Request 04/10/2023 Encounter Details Date Type Department Care Team (Late st Contact Info) Description 04/10/2023 My[facility] Refill [facility] Mental Health & [facility] [address] [place] [address] Mattie Tellez, ROSEMARIE ACQUISITIONS ANALYST [address] [place] [address] Refill Request Social History [...] on file Legal 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 Have a great day! Shannon Aggarwal RN. documented in this encounter Plan of Treatment Not on file documented as of this encounter Visit Diagnoses Diagnosis CATHY (generalized anxiety disorder) Generalized anxiety disorder documented in this encounter Additional Health Concerns Assessment Noted Time PHQ-9 Depression Total Score: 4 12/11/19 7:53 AM CDT documented as of this encounter Care Teams Wage And Salary Administrator Relationship Specialty Start Date End Date Shannan Malcolm CNP [address] [place] [address] 640902 PCP - General Nurse Practitioner - Family 07/09/22 Shannan Malcolm CNP [address] [place] [address] [phone] Assigned PCP 04/07/22 Mattie Tellez APRN ACQUISITIONS ANALYST [address] [place] [address] 73209 Assigned Behavioral Health Provider 09/22/22 documented as of this encounter
--- OUTSIDE RECORDS SUMMARY | 2024-04-11 17:57 | XMS_ITS | Encounter Summary ---
Author Organization [facility] Address [address] [place] [address] 20199 Care Team Providers Care Contracts Specialist Name Role Phone Shannan Malcolm SUPERVISOR TILE AND MOTTLE Unavailable [phone] Nabeel Nolan MD Unavailable [phone] Shannan Malcolm SUPERVISOR TILE AND MOTTLE Primary Care Provider Mattie Tellez APRN SUPERVISOR TILE AND MOTTLE Unavailable [phone] Reason for Visit * Reason Onset Date Comments Refill Request 09/15/2022 Encounter Details Date Type Department Care Team (Late st Contact Info) Description 09/15/2022 My[facility] Medical Advice [address] [id number] Shannan Malcolm, SUPERVISOR TILE AND MOTTLE [address] [place] [address] Refill Request Social History Tobacco Use [...] file Legal Sex Female 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 Gender Identity Female 02/08/2022 7:17 AM CDT [...] documented as of this encounter Care Teams Contracts Specialist Relationship Specialty Start Date End Date Shannan Malcolm CNP [address] [place] [address] 272152 PCP - General Nurse Practitioner - Family 07/09/22 Shannan Malcolm CNP [address] [place] [address] 55524 Assigned PCP 04/07/22 Nabeel Nolan MD [address] [place] [address] [id number] Assigned Behavioral Health Provider 06/02/22 09/21/22 Mattie Tellez APRN SUPERVISOR TILE AND MOTTLE [address] [place] [address] 34531 Assigned Behavioral Health Provider 09/22/22 documented as of this encounter
--- OUTSIDE RECORDS SUMMARY | 2024-04-11 17:57 | XMS_ITS | Encounter Summary ---
Author Organization [facility] Address [address] [place] [address] Care Team Providers Care District Fire Management Officer Name Role Phone Shannan Malcolm CNP Unavailable [phone] Shannan Malcolm CNP Primary Care Provider + [phone] Mattie Tellez APRN CRITICAL CARE REGISTERED NURSE Unavailable [phone] Reason for Visit * Reason Onset Date Comments Refill Request 12/31/2022 Encounter Details Date Type Department Care Team (Late st Contact Info) Description 12/31/2022 MyC Refill [facility] Mental Health & Addiction [place] [facility] [address] [place] [address] Mattie Tellez, ROSEMARIE CRITICAL CARE REGISTERED NURSE [address] [place] [address] Refill Request Social History Tobacco [...] on file Legal Sex Female 3:13 AM YOUTH LIAISON OFFICER Gender Identity Female 02/08/2022 7:17 AM CDT [...] documented as of this encounter Care Teams District Fire Management Officer Relationship Specialty Start Date End Date Shannan Malcolm CNP [address] [place] [address] 25831 PCP - General Nurse Practitioner - Family 07/09/22 Shannan Malcolm CNP [address] [place] [address] 33827 Assigned PCP 04/07/22 Mattie Tellez APRN CRITICAL CARE REGISTERED NURSE [address] [place] [address] 32881 Assigned Behavioral Health Provider 09/22/22 documented as of this encounter
--- OUTSIDE RECORDS SUMMARY | 2024-04-11 17:57 | XMS_ITS | Encounter Summary ---
Author Organization [facility] Address [address] [place] [address] 31377 Care Team Providers Care Gericare Aide Teacher Name Role Phone Shannan Malcolm CNP Unavailable [phone] Shannan Malcolm CNP Primary Care Provider + [phone] Mattie Tellez APRN INSPECTOR MACHINED PARTS Unavailable [phone] Reason for Visit * Reason Onset Date Comments Refill Request 10/07/2022 Encounter Details Date Type Department Care Team (Late st Contact Info) Description 10/07/2022 MyC Refill [facility] Mental Health & [facility] 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
--- OUTSIDE RECORDS SUMMARY | 2024-04-11 17:57 | XMS_ITS | Encounter Summary ---
Author Organization [facility] Address [address] [place] [address] 24658 Care Team Providers Care Area Loss Prevention Manager Name Role Phone Shannan Malcolm CNP Unavailable [phone] Shannan Malcolm CNP Primary Care Provider + [phone] Mattie Tellez APRN FLEXO PRESS OPERATOR Unavailable [phone] Reason for Visit * Reason Onset Date Comments Medication not working 01/10/2024 Diazepam Encounter Details Date Type Department Care Team (Late st Contact Info) Description 01/10/2024 [facility] Medical Advice [facility] Mental Health & [facility] [address] [place] [address] Mattie Tellez APRN FLEXO PRESS OPERATOR [address] [place] [address] Medication not working (Diazepam ) [...] on file Legal Sex Female 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 Yes Name of the pharmacy and phone number for the current request: N/A Name of the medication requested: Ativan Other request: Pt is requesting to be switch back to previous medication Can we leave a detailed message on this number? YES Phone number patient can be reached at: Home number on file [phone] (home) Best Time: Anytime Call taken on 01/10/2024 at 2:34 PM by Josafat Rose * Telephone Encounter - Nadira Ramos RN - 01/10/2024 2:33 PM CDT 1) Reviewed patient's whoactually message. She reports that diazepam is not [...] documented as of this encounter Care Teams Area Loss Prevention Manager Relationship Specialty Start Date End Date Shannan Malcolm CNP [address] [place] [address] 181002 PCP - General Nurse Practitioner - Family 07/09/22 Shannan Malcolm CNP [address] [place] [address] 94221 Assigned PCP 04/07/22 Mattie Tellez APRN FLEXO PRESS OPERATOR [address] [place] [address] Assigned Behavioral Health Provider 09/22/22 documented as of this encounter
--- OUTSIDE RECORDS SUMMARY | 2024-04-11 17:57 | XMS_ITS | Encounter Summary ---
Author Organization [place] Address [address] [place] [address]22 Care Team Providers Care Farmworker Fur Name Role Phone Shannan Malcolm CNP Unavailable [phone] Shannan Malcolm CNP Primary Care Provider + [phone] Mattie Tellez APRN PRINTER HELPER Unavailable [phone] Reason for Visit * Reason Onset Date Comments SIDE EFFECTS 01/21/2023 Grinding and isaiah nching jaw Encounter Details Date Type Department Care Team (Late st Contact Info) Description 01/21/2023 [facility] Medical Advice [facility] Mental Health & [facility] [address] [address] [place] [address] Mattie Tellez APRN PRINTER HELPER [address] [place] [address] SIDE EFFECTS (Grinding and clenching [...] on file Legal Sex Female 3:13 AM QA LEAD Gender Identity Female 02/08/2022 7:17 AM [...] as of this encounter Care Teams Farmworker Fur Relationship Specialty Start Date End Date Shannan Malcolm CNP [address] [place] [address] [phone] PCP - General Nurse Practitioner - Family 07/09/22 Shannan Malcolm CNP [address] [place] [address] 685872 Assigned PCP 04/07/22 Mattie Tellez APRN CNP [address] [place] [address] 31611 Assigned Behavioral Health Provider 09/22/22 documented as of this encounter
--- OUTSIDE RECORDS SUMMARY | 2024-04-11 17:57 | XMS_ITS | Encounter Summary ---
Author Organization [facility] Address [address] [place] [address]. [place] [address] Care Team Providers Care Roofing Subcontractor Name Role Phone Shannan Malcolm CNP Unavailable [phone] Shannan Malcolm CNP Primary Care Provider [phone] Mattie Tellez APRN PLANT MAINTENANCE WORKER Unavailable [phone] Encounter Details Date Type Department Care Team (Late st Contact Info) Description 02/23/2023 [facility] Medical Advice [facility] Mental Health & [facility] [address] [address] [place] [address] Mattie Tellez APRN PLANT MAINTENANCE WORKER [address] [facility] [address] [place], [place] [address] Social History Tobacco Use Types Packs/Day Years [...] on file Legal Sex Female 3:13 AM REGIONAL AIRLINE PILOT Gender Identity Female 02/08/2022 7:17 AM CDT [...] documented as of this encounter Care Teams Roofing Subcontractor Relationship Specialty Start Date End Date Shannan Malcolm CNP [address] [place] [address] 189482 PCP - General Nurse Practitioner - Family 07/09/22 Shannan Malcolm CNP [address] [place] [address] 397842 Assigned PCP 04/07/22 Mattie Tellez APRN CNP [address] [place] [address] Assigned Behavioral Health Provider 09/22/22 documented as of this encounter
--- OUTSIDE RECORDS SUMMARY | 2024-04-11 17:57 | XMS_ITS | Encounter Summary ---
Author Organization [facility] Address [address] [place] [address]. [place] [address] Care Team Providers Care Network Consultant Name Role Phone Shannan Malcolm CNP Unavailable [phone] Shannan Malcolm CNP Primary Care Provider [phone] Mattie Tellez APRN HABILITATION SPECIALIST Unavailable Reason for Visit * Reason Onset Date Comments See 05/17/23 MyChart Med Advice encounter 023 Encounter Details Date Type Department Care Team (Late st Contact Info) Description 05/22/2023 [facility] Mental Health & Addiction [facility] [address] [place] [address] Mattie Tellez APRN HABILITATION SPECIALIST [address] [place] [address] See 05/17/23 MyChart Med Advice [...] on file Legal Sex Female 3:13 AM HYDRATOR Gender Identity Female 02/08/2022 7:17 AM CDT Sexual Orientation Choose not to disclose 2021 7:17 AM CDT documented as of this encounter Miscellaneous Notes * Telephone Encounter - Edilia Costello RN - 05/22/2023 1:41 PM CST This being addressed in 05/17/23/ [facility] Med Advice encounter ATOR documented in this encounter Plan of Treatment Not on file documented as of this encounter Visit Diagnoses Diagnosis Attention deficit hyperactivity disorder (ADHD), predominantly inattentive type documented in this encounter Additional Health Concerns Assessment Noted Time PHQ-9 Depression Total Score: 4 12/11/19 7:53 AM CDT documented as of this encounter Care Teams Network Consultant Relationship Specialty Start Date End Date Shannan Malcolm CNP [address] [place] [address] PCP - General Nurse Practitioner - Family 07/09/22 Shannan Malcolm CNP [address] [place] [address] 69837 Assigned PCP 04/07/22 Mattie Tellez APRN HABILITATION SPECIALIST [address] [place] [address] Assigned Behavioral Health Provider 09/22/22 documented as of this encounter
--- OUTSIDE RECORDS SUMMARY | 2024-04-11 17:57 | XMS_ITS | Encounter Summary ---
Author Organization [facility] Address [address] [place] [address] Care Team Providers Care Pearl Fisherman Name Role Phone Shannan Malcolm MOLD SWABBER Unavailable [phone] Nabeel Nolan MD Unavailable [phone] Shannan Malcolm MOLD SWABBER Primary Care Provider Mattie Tellez APRN MOLD SWABBER Unavailable [phone] Reason for Visit * Reason Onset Date Comments Refill Request 09/20/2022 Encounter Details Date Type Department Care Team (Late st Contact Info) Description 09/20/2022 MyC Refill [address] [phone] Shannan Malcolm, MOLD SWABBER [address] [place] [address] [id number] Refill Request Social History Tobacco Use Types [...] on file Legal Sex Female 3:13 AM CASTING DIRECTOR Gender Identity Female 02/08/2022 7:17 AM [...] documented as of this encounter Care Teams Pearl Fisherman Relationship Specialty Start Date End Date Shannan Malcolm CNP [address] [place] [address] PCP - General Nurse Practitioner - Family 07/09/22 Shannan Malcolm CNP [address] [place] [address]803 Assigned PCP 04/07/22 Nabeel Nolan MD [address] [place] [address]21 Assigned Behavioral Health Provider 06/02/22 09/21/22 Mattie Tellez APRN MOLD SWABBER [address] [place] [address] Assigned Behavioral Health Provider 09/22/22 documented as of this encounter
--- OUTSIDE RECORDS SUMMARY | 2024-04-11 17:57 | XMS_ITS | Encounter Summary ---
Author Organization [facility] Address [address] [place] [address] Care Team Providers Care Assistant Speech Language Pathologist Name Role Phone Shannan Malcolm CNP Unavailable [phone] Nabeel Nolan MD Unavailable [phone] Shannan Malcolm PRODUCTION CONTROL SUPERVISOR Primary Care Provider [phone] Mattie Tellez APRN PRODUCTION CONTROL SUPERVISOR Unavailable [phone] Reason for Visit * Reason Comments Medication Refill Encounter Details Date Type Department Care Team (Late st Contact Info) Description 09/15/[address] [phone] Shannan Malcolm, PRODUCTION CONTROL SUPERVISOR [address] [place] [address] [phone] Medication Refill Social History Tobacco Use Types [...] on file Legal Sex Female 3:13 AM CLAM SHUCKER Gender Identity Female 02/08/2022 7:17 AM CDT [...] as of this encounter Care Teams Assistant Speech Language Pathologist Relationship Specialty Start Date End Date Shannan Malcolm CNP [address] [place] [address] PCP - General Nurse Practitioner - Family 07/09/22 Shannan Malcolm CNP [address] [place] [address] 42254 Assigned PCP 04/07/22 Nabeel Nolan MD [address] [place] [address] 38467 Assigned Behavioral Health Provider 06/02/22 09/21/22 Mattie Tellez APRN PRODUCTION CONTROL SUPERVISOR [address] [place] [address] 24319 Assigned Behavioral Health Provider 09/22/22 documented as of this encounter
--- OUTSIDE RECORDS SUMMARY | 2024-04-11 17:57 | XMS_ITS | Encounter Summary ---
Author Organization [facility] Address [address] [place] [address] Care Team Providers Care Acquisition Professional Name Role Phone Shannan Malcolm CNP Unavailable [phone] Shannan Malcolm CNP Primary Care Provider [phone] Mattie Tellez APRN MAJOR ASSEMBLY INSPECTOR Unavailable [phone] Reason for Visit * Reason Onset Date Comments Refill Request 03/13/2023 Encounter Details Date Type Department Care Team (Late st Contact Info) Description 03/13/2023 MyC Refill [facility] [address] [place] [address] Mattie Tellez, ROSEMARIE MAJOR ASSEMBLY INSPECTOR [address] [place] [address] Refill Request Social History Tobacco [...] on file Legal Sex Female 3:13 AM PLISSE MACHINE OPERATOR Gender Identity Female 02/08/2022 7:17 [...] Qty: 5 Refills: 0 Review of [place] CALL [facility]ENTER RN?: LORazepam (ATIVAN) 0.5 MG tablet Medication last sold date: 03/09/23 Qty filled: 5 Other controlled substance on [place] [facility] RN?: yes If yes, is this a new [...] or call after hours crisis line at [phone] or [phone]. [place] Crisis Text Line. Text [place] to 471248 or Suicide LifeLine Chat: suicidepreventionlifeline.org/chat Schedule an appointment with me in 5 weeks or sooner as needed. Call [facility] [phone] to schedule. Follow up with primary care provider as planned or for acute medical concerns. Call the psychiatric nurse line with medication questions or concerns at [phone]. MyChart may be used to communicate with your provider, but this is not intended to be used for emergencies. []Medication refilled per ???Medication Refill in Front Office Java Developer?? policy. [x]Medication unable to be refilled by [...] documented as of this encounter Care Teams Acquisition Professional Relationship Specialty Start Date End Date Shannan Malcolm CNP [address] [place] [address] 188952 PCP - General Nurse Practitioner - Family 07/09/22 Shannan Malcolm CNP [address] [place] [address] [id number] Assigned PCP 04/07/22 Mattie Tellez APRN CNP [address] [place] [address] 69[address] Assigned Behavioral Health Provider 09/22/22 documented as of this encounter
--- OUTSIDE RECORDS SUMMARY | 2024-04-11 17:57 | XMS_ITS | Encounter Summary ---
Author Organization [facility] Address [address] [place] [address]. [place] [address] Care Team Providers Care Faculty Member Name Role Phone Shannan Malcolm CNP Unavailable [phone] Shannan Malcolm CNP Primary Care Provider [phone] Mattie Tellez APRN PLASTIC BUBBLE PACKER Unavailable [phone] Encounter Details Date Type Department Care Team (Late st Contact Info) Description 12/14/2022 MyC Medical Advice [facility] Mental Health & [facility] [address] [address] [place] [address] Mattie Tellez APRN PLASTIC BUBBLE PACKER [address] [facility] [place], [place] [address] CATHY (generalized anxiety disorder) Social History Tobacco [...] on file Legal Sex Female 3:13 AM INTERTYPE OPERATOR Gender Identity Female 02/08/2022 7:17 AM CDT Sexual Orientation Choose not to disclose 2021 7:17 AM CDT documented as of this encounter Miscellaneous Notes * Telephone Encounter - Marcos Grijalva RN - 12/14/2022 3:11 PM CDT RN received a [employer] message from this patient indicating she has [...] [facility]. The patient reports that Mattie [...] documented as of this encounter Care Teams Faculty Member Relationship Specialty Start Date End Date Shannan Malcolm CNP [facility] [place] [address] PCP - General Nurse Practitioner - Family 07/09/22 Shannan Malcolm CNP [address] [place] [address] 35819 Assigned PCP 04/07/22 Mattie Tellez APRN CNP [address] [place] [address] Assigned Behavioral Health Provider 09/22/22 documented as of this encounter
--- OUTSIDE RECORDS SUMMARY | 2024-04-11 17:57 | XMS_ITS | Encounter Summary ---
Author Organization [facility] Address [facility] [place] [address] Care Team Providers Care Animal Health Technician Name Role Phone Shannan Malcolm CNP Unavailable [phone] Shannan Malcolm CNP Primary Care Provider [phone] Mattie Tellez APRN MANAGER MUSIC Unavailable [phone] Encounter Details Date Type Department Care Team (Late st Contact Info) Description 10/10/2023 [facility] Medical Advice [facility] Mental Health & [facility] [address] [address] [place] [address] Mattie Tellez APRN MANAGER MUSIC [address] [facility] [address] [place], [place] [address] Social History Tobacco Use Types Packs/Day Years [...] on file Legal Sex Female 3:13 AM R D INTERNSHIP Gender Identity Female 02/08/2022 7:17 AM [...] documented as of this encounter Care Teams Animal Health Technician Relationship Specialty Start Date End Date Shannan Malcolm CNP [address] [place], [place] 7699[address] PCP - General Nurse Practitioner - Family 07/09/22 Shannan Malcolm CNP [address] [place] [address] 548012 Assigned PCP 04/07/22 Mattie Tellez APRN CNP [address] [place] [address] 46177 Assigned Behavioral Health Provider 09/22/22 documented as of this encounter
--- OUTSIDE RECORDS SUMMARY | 2024-04-11 17:57 | XMS_ITS | Encounter Summary ---
Author Organization [facility] Address [address] [place] [address] Care Team Providers Care Ballistics Teacher Name Role Phone Shannan Malcolm CNP Unavailable [phone] Shannan Malcolm CNP Primary Care Provider [phone] Mattie Tellez APRN ASSEMBLER FITTER Unavailable [phone] Reason for Visit * Reason Onset Date Comments Refill Request 01/23/2024 lorazepam (ATIVA N) 0.5 MG tablet Encounter Details Date Type Department Care Team (Late st Contact Info) Description 01/23/2024 MyC Refill [facility] Mental Health & [facility] [address] [address] [place] [address] Mattie Tellez, ROSEMARIE ASSEMBLER FITTER [address] [place] [address] Refill Request (lorazepam (ATIVAN) 0.5 [...] file Legal Sex Female 3:13 AM GUIDE DELEGATE Gender Identity Female 02/08/2022 7:17 AM CDT Sexual Orientation Choose not to disclose 2021 7:17 AM CDT documented as of this encounter Miscellaneous Notes * Telephone Encounter - Carlene Zavaleta RN - 01/24/2024 12:59 PM CDT RN called [facility] [address] [address] at [phone] regarding when the patient picked up the [...] fill them tomorrow Saturday the Preferred pharmacy: [facility] - [id number] [address] -RN called the patient and she said she only has 3 tablets left of her lorazepam. She said she picked it up on 01/10/2024, but the EMBOSSING MACHINE OPERATOR says sold on 01/13/2024. The patient said [...] No []Medication refilled per ???Medication Refill in Wearing Apparel Assembler?? policy. [x]Medication unable to be refilled by [...] to review. Any Controlled Substance(s)? Yes [place] EMBOSSING MACHINE OPERATOR checked? Yes Lorazepam 0.5 mg tablet was last sold on 01/13/2024 for quantity of 30. Other controlled substance on [place] EMBOSSING MACHINE OPERATOR?: Yes If yes, are any new medications? [...] for #28. Contact provider via phone or Aquafadast in 2 weeks for diazepam refill (or [...] or call after hours crisis line at [phone] or [phone]. [place] Crisis Text Line. Text [place] to 241313 or Suicide LifeLine Chat: suicidepreventionlifeline.org/chat Schedule an appointment with me in 4 weeks or sooner as needed. Call [facility] [phone] to schedule. Follow up with primary care provider as planned or for acute medical concerns. Call the psychiatric nurse line with medication questions or concerns at [phone]. [employer] may be used to communicate with your [...] documented as of this encounter Care Teams Ballistics Teacher Relationship Specialty Start Date End Date Shannan Malcolm CNP [address] [place] [address] 011392 PCP - General Nurse Practitioner - Family 07/09/22 Shannan Malcolm CNP [address] [place] [address] 47066 Assigned PCP 04/07/22 Mattie Tellez APRN ASSEMBLER FITTER [address] [place], [place] 231775 Assigned Behavioral Health Provider 09/22/22 documented as of this encounter
--- OUTSIDE RECORDS SUMMARY | 2024-04-11 17:57 | XMS_ITS | Encounter Summary ---
Author Organization [facility] Address [address] [place] [address] Care Team Providers Care Airport Location Manager Name Role Phone Shannan Malcolm CNP Unavailable [phone] Shannan Malcolm CNP Primary Care Provider + [phone] Mattie Tellez APRN CLIPPER OPERATOR Unavailable [phone] Reason for Visit * Reason Onset Date Comments Medication Request 12/01/2023 Increase dexm ethylphenidate (FOCALIN XR) Encounter Details Date Type Department Care Team (Late st Contact Info) Description 12/01/2023 MyC Medical Advice [facility] Mental Health & Addiction [facility] [address] [place] [address] [address] [place] [address] Mattie Tellez APRN CLIPPER OPERATOR 500 [place] [address] Medication Request (Increase dexmethylphen... 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 INGREDIENT SCALER HELPER Gender Identity Female 02/08/2022 7:17 AM CDT Sexual Orientation Choose not to disclose 2021 7:17 AM CDT documented as of this encounter Miscellaneous Notes * Telephone Encounter - Yolanda Ahn RN - 12/02/2023 8:49 AM CDT Patient [...] documented as of this encounter Care Teams Airport Location Manager Relationship Specialty Start Date End Date Shannan Malcolm CNP [address] [place] [address] 727852 PCP - General Nurse Practitioner - Family 07/09/22 Shannan Malcolm CNP [address] [place] [address] 26643 Assigned PCP 04/07/22 Mattie Tellez APRN CLIPPER OPERATOR [address] [place] [address] 84852 Assigned Behavioral Health Provider 09/22/22 documented as of this encounter
--- OUTSIDE RECORDS SUMMARY | 2024-04-11 17:57 | XMS_ITS | Encounter Summary ---
Author Organization [facility] Address [facility] [place] [address] Care Team Providers Care Audit Spec Name Role Phone Shannan Malcolm RETAIL PLANNING MANAGER Unavailable [phone] Shannan Malcolm CNP Primary Care Provider [phone] Mattie Tellez APRN RETAIL PLANNING MANAGER Unavailable [phone] Encounter Details Date Type Department Care Team ([facility] Contact Info) Description 04/11/2023 Telephone [facility] Behavioral Health Intake [address] [place] [phone] Generic, Behavioral Intake, Social History Tobacco Use [...] on file Legal Sex Female 3:13 AM INDUSTRIAL AUTOMATION ENGINEER Gender Identity Female 02/08/2022 7:17 AM CDT Sexual Orientation Choose not to disclose 2021 7:17 AM CDT documented as of this encounter Miscellaneous Notes * Telephone Encounter - Nadira Ramos RN - 04/12/2023 8:42 AM CDT Images from the original note were not included. Reviewed documentation from [facility] coordinator. Pharmacy won't cover 2, [...] or call after hours crisis line at [phone] or [phone]. [place] Crisis Text Line. Text [place] to 128503 or Suicide LifeLine Chat: suicidepreventionlifeline.org/chat Schedule an appointment with me in 3 weeks or sooner as needed. Call [facility] [phone] to schedule. Follow up with primary care provider as planned or for acute medical concerns. Call the psychiatric nurse line with medication questions or concerns at [phone]. Maraquiahart may be used to communicate with your [...] number to reach pharmacy: Other phone number: [phone] Best Time: MARIO Can we leave a detailed message on this number? Not Applicable Travel screening: Not Applicable documented in this encounter Plan of Treatment Not on file documented as of this encounter Visit Diagnoses Not on filedocumented in this encounter Additional Health Concerns Assessment Noted Time PHQ-9 Depression Total Score: 4 12/11/19 7:53 AM CDT documented as of this encounter Care Teams Audit Spec Relationship Specialty Start Date End Date Shannan Malcolm CNP [address] [place] [address] [id number] PCP - General Nurse Practitioner - Family 07/09/22 Shannan Malcolm CNP [address] [place] [address] 628192 Assigned PCP 04/07/22 Mattie Tellez APRN CNP [address] [place] [address] 328405 Assigned Behavioral Health Provider 09/22/22 documented as of this encounter
--- OUTSIDE RECORDS SUMMARY | 2024-04-11 17:57 | XMS_ITS | Encounter Summary ---
Author Organization [facility] Address [address] [place] [address] Care Team Providers Care Supervisor Treating And Pumping Name Role Phone Shannan Malcolm CNP Unavailable [phone] Shannan Malcolm CNP Primary Care Provider [phone] Mattie Tellez APRN PATHOLOGY SUPERVISOR Unavailable [phone] Encounter Details Date Type Department Care Team ([facility] st Contact Info) Description 05/27/[address] [facility] Mental Health & Addiction [facility] [address] [place] [address] Mattie Tellez APRN PATHOLOGY SUPERVISOR [address] [place], [place] [address] Social History Tobacco Use Types Packs/Day Years [...] file Legal Sex Female 3:13 AM SENIOR ELECTRONICS ENGINEER Gender Identity Female 02/08/2022 7:17 AM CDT Sexual Orientation Choose not to disclose 2021 7:17 AM CDT documented as of this encounter Miscellaneous Notes * Telephone Encounter - Yolanda Ahn RN - 05/27/2023 2:14 PM SENIOR ELECTRONICS ENGINEER Called and explained to the patient that [...] Ahn RN on 05/27/2023 at 2:15 PM OR ELECTRONICS ENGINEER * Telephone Encounter - Jane Jordan DO - 05/27/2023 1:01 PM CST Could RN please inform pt that there is a shortage of all stimulant medication used to treat ADHD. I am not comfortable switching her to something different but I am happy to send the Rx to a different pharmacy if pt would like. OR ELECTRONICS ENGINEER * Telephone Encounter - Yolanda Ahn RN - 05/27/2023 12:30 PM SENIOR ELECTRONICS ENGINEER Patient has been out of Concerta 36 [...] Ahn RN on 05/27/2023 at 12:32 PM OR ELECTRONICS ENGINEER * Telephone Encounter - Chantel Kilpatrick - 05/27/2023 11:46 AM CST Reason for call: Medication If this is a refill request, has the caller requested the refill from the pharmacy already? Yes Will the patient be using a [facility]? Kief of the pharmacy and phone number for the current request: [facility] [phone] Name of the medication requested: Concerta Other request: Concerta will not be manufactured until June and wants to see about switching to something similar so it can be filled. Patient has been out for 2.5 weeks. Wants to picking machine operator in [place] is possible. Patient has requested a refill from their pharmacies listed and the pharmacies have nothing in their supply to refill it with. Pt understanded there is a national shortage Phone number to reach patient: Home number on file [phone] (home) Best Time: Any Can we leave a detailed message on this number? YES Travel screening: Not Applicable OR ELECTRONICS ENGINEER documented in this encounter Plan of Treatment Not on file documented as of this encounter Visit Diagnoses Not on filedocumented in this encounter Additional Health Concerns Assessment Noted Time PHQ-9 Depression Total Score: 4 12/11/19 23 7:53 AM CDT documented as of this encounter Care Teams Supervisor Treating And Pumping Relationship Specialty Start Date End Date Shannan Malcolm CNP [address] [place] [address] [id number] PCP - General Nurse Practitioner - Family 07/09/22 Shannan Malcolm CNP [address] [place] [address] 8[address] Assigned PCP 04/07/22 Mattie Tellez APRN CNP [address] [place] [address] 71540 Assigned Behavioral Health Provider 09/22/22 documented as of this encounter
--- OUTSIDE RECORDS SUMMARY | 2024-04-11 17:58 | XMS_ITS | Encounter Summary ---
Author Organization [place] Address [address] [place] [address] 66898 Care Team Providers Care Network Controller Name Role Phone Anni Nair PA-C Primary Care Provider [phone] Shannan Malcolm HOTBED OPERATOR Unavailable +[phone] Nabeel Nolan MD Unavailable [phone] Shannan Malcolm CNP Primary Care Provider Mattie Tellez APRN HOTBED OPERATOR Unavailable +[phone] Encounter Details Date Type Department Care Team (Late st Contact Info) Description 06/12/2022 MyC Medical Advice [address] [place] [address] Shannan Malcolm, HOTBED OPERATOR [address] [place] [address] 55[address] Social History Tobacco Use Types Packs/Day [...] on file Legal Sex Female 3:13 AM SHOP DIRECTOR Gender Identity Female 02/08/2022 7:17 AM CDT Sexual Orientation Choose not to disclose 2021 7:17 AM CDT documented as of this encounter Miscellaneous Notes * Telephone Encounter - Xiomara Jones RN - 06/13/2022 12:44 PM CST FYI to provider. Pt did have a follow up visit Xiomraa Siddiqi RN, BSN DIRECTOR documented in this encounter Plan of Treatment Not on file documented as of this encounter Visit Diagnoses Not on filedocumented in this encounter Additional Health Concerns Assessment Noted Time PHQ-9 Depression Total Score: 16 022 9:07 AM SHOP DIRECTOR documented as of this encounter Care Teams Network Controller Relationship Specialty Start Date End Date Anni Nair PA-C PCP - General Physician Filament Coil Winder 10/01/17 07/08/22 Shannan Malcolm CNP [address] [place] [address] 96079 PCP - General Nurse Practitioner - Family 07/09/22 Shannan Malcolm CNP [address] [place] [address] 23177 Assigned PCP 04/07/22 Nabeel Nolan MD [address] [place] [address] 82134 Assigned Behavioral Health Provider 06/02/22 09/21/22 Mattie Tellez APRN HOTBED OPERATOR [address] [place] [address] 66273 Assigned Behavioral Health Provider 09/22/22 documented as of this encounter
--- OUTSIDE RECORDS SUMMARY | 2024-04-11 17:58 | XMS_ITS | Encounter Summary ---
Author Organization [facility] Address [address] [place] [address] 29872 Care Team Providers Care Corporate Concierge Name Role Phone Anni Nair PA-C Primary Care Provider + [phone] Shannan Malcolm RESIDENTIAL TEAM LEADER Unavailable +[phone] Shannan Malcolm CNP Unavailable [phone] Nabeel Nolan MD Unavailable +[phone] Shannan Malcolm CNP Primary Care Provider [phone] Mattie Tellez APRN RESIDENTIAL TEAM LEADER Unavailable [phone] Reason for Visit * Reason Onset Date Comments MyChart Communication 03/05/2022 Encounter Details Date Type Department Care Team (Late st Contact Info) Description 03/05/2022 MyC Medical Advice [address] [address] Shannan Malcolm, RESIDENTIAL TEAM LEADER [address] [place] [address] MyChart Communication Social History Tobacco Use [...] on file Legal Sex Female 3:13 AM DUMPSTER DRIVER Gender Identity Female 02/08/2022 7:17 AM [...] Thank you Maria Antonia Vázquez RN, BSN [place] Triage documented in this encounter Plan of Treatment Not on file documented as of this encounter Visit Diagnoses Not on filedocumented in this encounter Additional Health Concerns Infection Onset Date Last Indicated Resolved Time Rule Out COVID-19 03/09/2022 03/09/2022 03/30/2022 11:39 PM CDT Assessment Noted Time PHQ-9 Depression Total Score: 15 022 8:50 AM CDT documented as of this encounter Care Teams Corporate Concierge Relationship Specialty Start Date End Date Anni Nair PA-C PCP - General Physician Stratigraphy Teacher 10/01/17 07/08/22 Shannan Malcolm CNP [address] [place] [address] 19389 PCP - General Nurse Practitioner - Family 07/09/22 Shannan Malcolm CNP [address] [place] [address] 413362 Assigned PCP 02/24/22 03/16/22 Shannan Malcolm CNP [address] [place] [address] 347882 Assigned PCP 04/07/22 Nabeel Nolan MD [address] [place] [address] [phone] Assigned Behavioral Health Provider 06/02/22 09/21/22 Mattie Tellez APRN RESIDENTIAL TEAM LEADER [address] [place] [address] [phone] Assigned Behavioral Health Provider 09/22/22 documented as of this encounter
--- OUTSIDE RECORDS SUMMARY | 2024-04-11 17:58 | XMS_ITS | Encounter Summary ---
Author Organization [facility] Address [address] [place] [address] 13531 Care Team Providers Care Tool Repair Technician Name Role Phone Anni Nair PA-C Primary Care Provider [phone] Shannan Malcolm REFINERY OPERATOR HELPER Unavailable +[phone] Nabeel Nolan MD Unavailable [phone] Shannan Malcolm REFINERY OPERATOR HELPER Primary Care Provider [phone] Mattie Tellez APRN REFINERY OPERATOR HELPER Unavailable [phone] Encounter Details Date Type Department Care Team (Late st Contact Info) Description 03/29/2022 MyC Medical Advice [address] [place] [address] Zeynep Del Castillo RN 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 SPEEDBOAT DRIVER Gender Identity Female 02/08/2022 7:17 AM [...] Encounter - Maria Antonia Vázquez RN - 04/02/2022 11:23 AM CDT [place] 03/09/2022 Please see my chart message below Please review and advise Thank you Maria Antonia Vázquez RN, BSN [place] Triage documented in this encounter Plan of [...] Anni Nair PA-C PCP - General Physician Funeral Service Licensee 10/01/17 07/08/22 Shannan Malcolm CNP [address] [place] [address] 94921 PCP - General Nurse Practitioner - Family 07/09/22 Shannan Malcolm CNP [address] [place] [address] 56048 Assigned PCP 04/07/22 Nabeel Nolan MD [address] [place] [address] 57160 Assigned Behavioral Health Provider 06/02/22 09/21/22 Mattie Tellez APRN REFINERY OPERATOR HELPER [address] [place], [place] [phone] Assigned Behavioral Health Provider 09/22/22 documented as of this encounter
--- OUTSIDE RECORDS SUMMARY | 2024-04-11 17:58 | XMS_ITS | Encounter Summary ---
Author Organization [facility] Address [address] [place] [address] 78460 Care Team Providers Care Caser In Name Role Phone Anni Nair PA-C Primary Care Provider [phone] Shannan Malcolm MAT MACHINE TENDER Unavailable +[phone] Nabeel Nolan MD Unavailable [phone] Shannan Malcolm CNP Primary Care Provider Mattie Tellez APRN MAT MACHINE TENDER Unavailable +[phone] Encounter Details Date Type Department Care Team (Late st Contact Info) Description 06/14/2022 MyC Medical Advice [address] [place] [address] Shannan Malcolm, MAT MACHINE TENDER [address] [place] [address] Social History Tobacco Use Types Packs/Day [...] file Legal Sex Female 3:13 AM MANAGER LAND Gender Identity Female 02/08/2022 7:17 AM CDT Sexual Orientation Choose not to disclose 2021 7:17 AM CDT documented as of this encounter Plan of Treatment Not on file documented as of this encounter Visit Diagnoses Not on filedocumented in this encounter Additional Health Concerns Assessment Noted Time PHQ-9 Depression Total Score: 16 022 9:07 AM MANAGER LAND documented as of this encounter Care Teams Caser In Relationship Specialty Start Date End Date Anni Nair PA-C PCP - General Physician Almond Blancher Hand 10/01/17 07/08/22 Shannan Malcolm CNP [address] [place] [address] [phone] PCP - General Nurse Practitioner - Family 07/09/22 Shannan Malcolm CNP [address] [place] [address] 036002 Assigned PCP 04/07/22 Nabeel Nolan MD [address] [place] [address] [phone] Assigned Behavioral Health Provider 06/02/22 09/21/22 Mattie Tellez APRN MAT MACHINE TENDER [address] [place] [address] 90196 Assigned Behavioral Health Provider 09/22/22 documented as of this encounter
--- OUTSIDE RECORDS SUMMARY | 2024-04-11 17:58 | XMS_ITS | Encounter Summary ---
Author Organization [facility] Address [address] [place] [address] 94772 Care Team Providers Care Eeg Technician Name Role Phone Nabeel Maki MD Primary Care Provider [phone] Noemi Vidal MD Primary Care Provider [phone] Azra Samano APRN STRINGER MACHINE TENDER Primary Care Provider Unavailable [facility] Primary Care Provider Anni Nair-C Primary Care Provider [phone] Anni Nair-C Unavailable [phone] Anni Nair-C Unavailable +[phone] Lesli Ham PA-C Unavailable + [phone] Arellano DO Unavailable [phone] Anni Nair-C Unavailable +[phone] Shannan Malcolm CNP Unavailable +[phone] Shannan Malcolm CNP Unavailable +[phone] Nabeel Nolan MD Unavailable [phone] Shannan Malcolm CNP Primary Care Provider [phone] Mattie Tellez APRN STRINGER MACHINE TENDER Unavailable [phone] Encounter Details Date Type Department Care Team (Late st Contact Info) Description 10/23/[address] [place] [address] Noemi Vidal MD [facility] [place] [address] [place] ED/H&P/CONSULT Social History Tobacco Use Types [...] on file Legal Sex Female 3:13 AM CROSSBOW MAKER Gender Identity Female 02/08/2022 7:17 AM [...] documented as of this encounter Care Teams Eeg Technician Relationship Specialty Start Date End Date Nabeel Maki MD [address] [place] [address] 51988 PCP - General 07/25/01 10/25/09 Noemi Vidal MD [address] [place] [address] 69395 PCP - General Family Practice 10/26/09 01/19/14 Azra Samano APRN STRINGER MACHINE TENDER [address] [place] [address] 31633 PCP - General Nurse Practitioner 01/20/14 11/08/[address] [address] PCP - General 11/09/15 09/30/17 Anni Nair PA-C [address] [place] [address] 93872 PCP - General Physician Sporting Goods Sales Manager 10/01/17 07/08/22 Anni Nair PA-C [address] [place] [address] 81645 PCP - Assigned PCP 12/09/16 08/12/18 Shannan Malcolm, GROVER [address] [place] [address] 62144 PCP - General Nurse Practitioner - Family 07/09/22 Anni Nair PA-C [address] [place] [address] 24091 Assigned PCP 12/09/16 11/29/18 Lesli Ham PA-C [address] [place] [address] 04218 Assigned PCP 11/30/18 12/06/18 Rd Arellano DO [address] [place] [address] 04079 Assigned PCP 12/07/18 04/23/20 Anni Nair PA-C [address] [place] [address] 19932 Assigned PCP 04/24/20 10/15/20 Shannan Malcolm CNP [address] [place] [address] Assigned PCP 02/24/22 03/16/22 Shannan Malcolm CNP [address] [place] [address] 55822 Assigned PCP 04/07/22 Nabeel Nolan MD [address] [place] [address] 83724 Assigned Behavioral Health Provider 06/02/22 09/21/22 Mattie Tellez APRN STRINGER MACHINE TENDER [address] [place] [address] 58734 Assigned Behavioral Health Provider 09/22/22 documented as of this encounter
--- OUTSIDE RECORDS SUMMARY | 2024-04-11 17:58 | XMS_ITS | Encounter Summary ---
Author Organization [facility] Address [address] [place] [address] 95766 Care Team Providers Care Auto Parts Professional Name Role Phone Anni Nair PA-C Primary Care Provider [phone] Shannan Malcolm EXECUTIVE ADMINISTRATIVE ASST Unavailable +[phone] Nabeel Nolan MD Unavailable [phone] Shannan Malcolm CNP Primary Care Provider [phone] Mattie Tellez APRN EXECUTIVE ADMINISTRATIVE ASST Unavailable +[phone] Encounter Details Date Type Department Care Team (Late st Contact Info) Description 07/05/[address] [facility] [address] [place] [address] Anni Nair PA-C [address] [facility] [place] [address] Social History Tobacco Use Types Packs/Day [...] on file Legal Sex Female 3:13 AM LEARNING AND DEVELOPMENT COORDINATOR Gender Identity Female 02/08/2022 7:17 AM CDT Sexual Orientation Choose not to disclose 2021 7:17 AM CDT documented as of this encounter Plan of Treatment Not on file documented as of this encounter Visit Diagnoses Not on filedocumented in this encounter Additional Health Concerns Assessment Noted Time PHQ-9 Depression Total Score: 16 022 9:07 AM LEARNING AND DEVELOPMENT COORDINATOR documented as of this encounter Care Teams Auto Parts Professional Relationship Specialty Start Date End Date Anni Nair PA-C PCP - General Physician Turner In 10/01/17 07/08/22 Shannan Malcolm CNP [address] [place] [address] [phone] PCP - General Nurse Practitioner - Family 07/09/22 Shannan Malcolm CNP [address] [place] [address] 979602 Assigned PCP 04/07/22 Nabeel Nolan MD [address] [place] [address] [phone] Assigned Behavioral Health Provider 06/02/22 09/21/22 Mattie Tellez APRN EXECUTIVE ADMINISTRATIVE ASST [address] [place] [address] 81181 Assigned Behavioral Health Provider 09/22/22 documented as of this encounter
--- OUTSIDE RECORDS SUMMARY | 2024-04-11 17:58 | XMS_ITS | Encounter Summary ---
Author Organization [facility] Address [address] [place] [address] 31933 Care Team Providers Care Senior Water/Wastewater Engineer Name Role Phone Anni Nair PA-C Primary Care Provider [phone] Shannan Malcolm CRIME ANALYST Unavailable [phone] Nabeel Nolan MD Unavailable [phone] Shannan Malcolm CNP Primary Care Provider [phone] Mattie Tellez APRN CRIME ANALYST Unavailable [phone] Encounter Details Date Type Department Care Team (Late st Contact Info) Description 03/30/2022 MyC Medical Advice [address] [place] [address] Shannan Malcolm, CRIME ANALYST [address] [place] [address]372 Social History Tobacco Use Types Packs/Day [...] on file Legal Sex Female 3:13 AM COMMUNICATION SPEC Gender Identity Female 02/08/2022 7:17 AM CDT [...] as of this encounter Care Teams Senior Water/Wastewater Engineer Relationship Specialty Start Date End Date Anni Nair PA-C PCP - General Physician Parts Counter Salesperson 10/01/17 07/08/22 Shannan Malcolm CNP [address] [place] [address] [phone] PCP - General Nurse Practitioner - Family 07/09/22 Shannan Malcolm CNP [address] [place] [address] 57249 Assigned PCP 04/07/22 Nabeel Nolan MD [address] [place] [address] 61202 Assigned Behavioral Health Provider 06/02/22 09/21/22 Mattie Tellez APRN CRIME ANALYST [address] [place] [address] 04326 Assigned Behavioral Health Provider 09/22/22 documented as of this encounter
--- OUTSIDE RECORDS SUMMARY | 2024-04-11 17:58 | XMS_ITS | Encounter Summary ---
Author Organization [place] Address [address] [place] [address] 38476 Care Team Providers Care Converting Technician Name Role Phone Anni Nair PA-C Primary Care Provider [phone] Shannan Malcolm SEGMENTAL WALL INSTALLER Unavailable [phone] Nabeel Nolan MD Unavailable [phone] Shannan Malcolm SEGMENTAL WALL INSTALLER Primary Care Provider [phone] Mattie Tellez APRN SEGMENTAL WALL INSTALLER Unavailable [phone] Reason for Visit * Reason Onset Date Comments MyChart Communication 04/23/2022 Encounter Details Date Type Department Care Team (Late st Contact Info) Description 04/23/2022 MyC Medical Advice [address] [phone] Shannan Malcolm, SEGMENTAL WALL INSTALLER [address] [place] [address]372 MyChart Communication Social History Tobacco Use [...] on file Legal Sex Female 3:13 AM CIGAR MAKER Gender Identity Female 02/08/2022 7:17 AM [...] Antonia Vázquez RN - 04/26/2022 2:32 PM CIGAR MAKER Please see my chart message below Please review and advise Thank you Maria Antonia Vázquez RN, BSN [place] Triage R MAKER documented in this encounter Plan of Treatment Not on file documented as of this encounter Visit Diagnoses Not on filedocumented in this encounter Additional Health Concerns Assessment Noted Time PHQ-9 Depression Total Score: 25 022 7:08 AM CIGAR MAKER documented as of this encounter Care Teams Converting Technician Relationship Specialty Start Date End Date Anni Nair PA-C PCP - General Physician Pug Machine Operator 10/01/17 07/08/22 Shannan Malcolm CNP [address] [place] [address] [phone] PCP - General Nurse Practitioner - Family 07/09/22 Shannan Malcolm CNP [address] [place] [address] [phone] Assigned PCP 04/07/22 Nabeel Nolan MD [address] [place] [address] 68208 Assigned Behavioral Health Provider 06/02/22 09/21/22 Mattie Tellez APRN SEGMENTAL WALL INSTALLER [address] [place] [address] Assigned Behavioral Health Provider 09/22/22 documented as of this encounter
--- OUTSIDE RECORDS SUMMARY | 2024-04-11 17:58 | XMS_ITS | Encounter Summary ---
Author Organization [facility] Address [address] [place] [address] 38148 Care Team Providers Care Tube Pusher Name Role Phone Anni Nair PA-C Primary Care Provider [phone] Shannan Malcolm POST DOC FELLOWSHIP Unavailable +[phone] Nabeel Nolan MD Unavailable [phone] Shannan Malcolm CNP Primary Care Provider + [phone] Mattie Tellez APRN POST DOC FELLOWSHIP Unavailable +[phone] Encounter Details Date Type Department Care Team (Late st Contact Info) Description 07/08/[address] [facility] [address] [place] [phone] [place] [address] [place], [place] [phone] Social History Tobacco Use Types Packs/Day Years [...] on file Legal Sex Female 3:13 AM BEHAVIORAL HEALTH SPECIALIST Gender Identity Female 02/08/2022 7:17 AM CDT Sexual Orientation Choose not to disclose 2021 7:17 AM CDT documented as of this encounter Plan of Treatment Not on file documented as of this encounter Visit Diagnoses Not on filedocumented in this encounter Additional Health Concerns Assessment Noted Time PHQ-9 Depression Total Score: 16 022 9:07 AM BEHAVIORAL HEALTH SPECIALIST documented as of this encounter Care Teams Tube Pusher Relationship Specialty Start Date End Date Anni Nair PA-C PCP - General Physician Snack Bar Attendant 10/01/17 07/08/22 Shannan Malcolm CNP [address] [place] [address] [phone] PCP - General Nurse Practitioner - Family 07/09/22 Shannan Malcolm CNP [address] [place] [address] 191322 Assigned PCP 04/07/22 Nabeel Nolan MD [address] [place] [address] [phone] Assigned Behavioral Health Provider 06/02/22 09/21/22 Mattie Tellez APRN POST DOC FELLOWSHIP [address] [place] [address] 86341 Assigned Behavioral Health Provider 09/22/22 documented as of this encounter
--- OUTSIDE RECORDS SUMMARY | 2024-04-11 17:58 | XMS_ITS | Encounter Summary ---
Author Organization [facility] Address [address] [place] [address]29 Care Team Providers Care Airplane Pilot Photogrammetry Name Role Phone Nabeel Maki MD Primary Care Provider [phone] Noemi Vidal MD Primary Care Provider [phone] Azra Samano APRN TALENT PARTNER Primary Care Provider Unavailable [facility] Primary Care Provider Anni Nair-C Primary Care Provider [phone] Anni Nair-C Unavailable +[phone] Anni Nair-C Unavailable +[phone] Lesli Ham PA-C Unavailable + [phone] Arellano DO Unavailable [phone] Anni Nair-C Unavailable +[phone] Shannan Malcolm CNP Unavailable +[phone] Shannan Malcolm CNP Unavailable +[phone] Nabeel Nolan MD Unavailable [phone] Shannan Malcolm CNP Primary Care Provider +[phone] Mattie Tellez APRN TALENT PARTNER Unavailable +[phone] Encounter Details Date Type Department Care Team (Late st Contact Info) Description 10/25/[address] [place] [address] Noemi Vidal MD [facility] [place] [place] [address] 522671 [facility] D/C Social History Tobacco Use Types [...] file Legal Sex Female 3:13 AM POTATO CHIP COOKER MACHINE Gender Identity Female 02/08/2022 7:17 AM CDT [...] documented as of this encounter Care Teams Airplane Pilot Photogrammetry Relationship Specialty Start Date End Date Nabeel Maki MD [address] [place] [address] 08560 PCP - General 07/25/01 10/25/09 Noemi Vidal MD [address] [place] [address] 41497 PCP - General Family Practice 10/26/09 01/19/14 Azra Samano APRN CNP [address] [place] [address] 36587 PCP - General Nurse Practitioner 01/20/14 11/08/[address] [address] PCP - General 11/09/15 09/30/17 Anni Nair PA-C [address] [place] [address] 12531 PCP - General Physician Lead Sharepoint Developer 10/01/17 07/08/22 Anni Nair PA-C [address] [place] [address] 47652 PCP - Assigned PCP 12/09/16 08/12/18 Shannan Malcolm, GROVER [address] [place] [address] 81570 PCP - General Nurse Practitioner - Family 07/09/22 Anni Nair PA-C [address] [place] [address] 20307 Assigned PCP 12/09/16 11/29/18 Lesli Ham PA-C [address] [place] [address] 45723 Assigned PCP 11/30/18 12/06/18 Rd Arellano DO [address] [place] [address] 33718 Assigned PCP 12/07/18 04/23/20 Anni Nair PA-C [address] [place] [address] 99552 Assigned PCP 04/24/20 10/15/20 Shannan Malcolm CNP [address] [place] [address] Assigned PCP 02/24/22 03/16/22 Shannan Malcolm CNP [address] [place] [address] 36191 Assigned PCP 04/07/22 Nabeel Nolan MD [address] [place] [address] 76189 Assigned Behavioral Health Provider 06/02/22 09/21/22 Mattie Tellez APRN TALENT PARTNER [address] [place] [address] 56500 Assigned Behavioral Health Provider 09/22/22 documented as of this encounter
--- OUTSIDE RECORDS SUMMARY | 2024-04-11 17:58 | XMS_ITS | Clinical Summary ---
Author Organization [employer] [facility] Address [place], [place] [address] Care Team Providers Care Senior Windows Administrator Name Role Phone Brionna Giang MD Primary [...] Overview (07/18/2023): Patient is followed by Azra Shine NP, FINAL APPLICATION REVIEWER for ongoing prescription of a controlled medicine. [...] intermittent asthma 09/04/200505/2024 Overview (07/18/2023): exercise related Encounters Date Type Department Care Team Description 04/06/2024 Lab Requisition [facility] [phone] Jb Vila MD from Last 3 Months Immunizations Name Administration Dates Next Due COVID-19 VACCINE SPIKEVAX (M ODERNA 50MCG/0.5ML) 12YO+ PFS 07/22/2023 Influenza Virus, Unspecified 03/20/2012,04/09/20 11,03/17/2010 Influenza, IIV3 (Age 6-35 mos) 04/09/2011 Influenza, IIV3 (Age >=3 years) 03/20/2012,03/17 Influenza, IIV4 07/22/2023,04/09/2011 MMR 02/01/1999 Pneumococcal Poly,23-Valent (Pneumovax) 07/16/19 10 Pneumococcal conj 13-Valent (Prevnar 13) 010 Td (Age >=7 Years) 02/01/1999 Td, Preservative Free (age >= 7 Years) 8 Tdap 05/31/2017,06/29/2011,02/01/1999 Family History Medical History [...] N Livin g 8 16 November Delivery Location:[facility] Last Filed Vital Signs Vital Sign Reading [...] Procedure Name Priority Date/Time Associated Diagnosis Comments LAB TRACKING EVENT Routine 04/05/2024 9: 07 AM CDT PATH TISSUE EXAM Routine 04/05/2024 8:44 AM CDT ANTI HIV 1/2 Routine 07/22/2023 11:43 AM FACING CUTTING MACHINE OPERATOR Screen for STD (sexually transmitted disease) ANTI HCV Routine 07/22/2023 11:43 AM FACING CUTTING MACHINE OPERATOR Screen for STD (sexually transmitted disease) HPV HIGH RISK Routine 07/22/2023 11:15 AM FACING CUTTING MACHINE OPERATOR Pap smear for cervical cancer screening from Last 3 Months or Most Recently Relevant to Health Maintenance Results * LAB TRACKING EVENT (04/05/2024 9:07 AM CDT) Other (Other) Client Collect / Unknown 04/05/2024 9:07 AM CDT 04/06/2024 1:52 PM CDT Jb Vila MD LAB BILL ONLY [facility] [address] [place] [id number], * PATH TISSUE EXAM (04/05/2024 8:44 AM CDT) Case Report Pathology Report ?Case: [id number] ? Authorizing Provider: ??Jb Vila MD ?Collected: ? 04/05/2024 0844 ? Ordering Location: ? [facility] ?Received: ?04/06/2024 1417 ? Pathologist: ? Erasto Ferrell ? MD YUDY ? Specimen: ?Gallbladder ? 04/07/2024 3:02 PM CDT [facility] Final Diagnosis A) GALLBLADDER, CHOLECYSTECTOMY: 1. Chronic cholecystitis 2. Negative for cholelithiasis 3. Negative for dysplasia and malignancy 04/07/2024 3:02 PM CDT [facility] Clinical Information Ms. Santillan is a 38 y.o. who undergoes cholecystectomy. 04/07/2024 3:02 PM CDT [facility] Gross Description A) Received in formalin, labeled with the patient's name and gallbladder, is a 7.0 x 3.4 x 3.0 cm intact gallbladder. ??No discrete gallstones are identified. There are no mucosal lesions identified. The average wall thickness is 0.2 cm. There is no abnormal wall thickening identified. No cystic duct lymph node is identified. Maintenance Chief sections are submitted in one cassette. EVM 04/06/2024 04/07/2024 3:02 PM CDT [facility] Microscopic Description The final diagnosis is based on microscopic examination of appropriate sections of all specimens. 04/07/2024 3:02 PM CDT [facility] Additional Information Interpreted at [facility], Central Laboratory - [address] [address] 04/07/2024 3:02 PM CDT [facility] Other SPECIMEN FROM GALLBLADDER / Unknown 04/05/2024 8:44 AM CDT 04/06/2024 2:17 PM CDT Jb Vila MD PATHOLOGY/CYTOLOGY Performing Organization Address City/[facility]/ZIP Co de Phone Number [facility] [address] [place] [address], * ANTI HCV (07/22/2023 11:43 AM FACING CUTTING MACHINE OPERATOR) Pathologist [facility] HEPATITIS C ANTIBODY Non-Reacti ve Non-React ira 07/22/2023 4:39 PM FACING CUTTING MACHINE OPERATOR [facility] Comment:Please note, per www .CDC.gov: If a patient is known to be at high risk of HCV infection, or is symptomatic, and the physician's suspicion of HCV infection is high, HCV RNA testing is often employed and is of diagnostic value, even after an initial negative anti-HCV test result. Blood BLOOD SPECIMEN / Unknown Venipuncture / Unknown 07/22/2023 11:43 AM FACING CUTTING MACHINE OPERATOR 07/22/2023 11:43 AM FACING CUTTING MACHINE OPERATOR Brionna Giang MD SEND OUTS Performing Organization Address [facility] Co de Phone Number [facility] [address] [place] [address], [place] * ANTI HIV 1/2 (07/22/2023 11:43 AM FACING CUTTING MACHINE OPERATOR) Pathologist [facility] HIV-1/HIV-2 SCREEN Non-Reacti ve Non-Reacti ve 07/22/2023 4:48 PM FACING CUTTING MACHINE OPERATOR [facility] Comment:HIV-1 p24 and HIV-1/ HIV-2 Ab Not Detected. Blood BLOOD SPECIMEN / Unknown Venipuncture / Unknown 07/22/2023 11:43 AM FACING CUTTING MACHINE OPERATOR 07/22/2023 11:43 AM FACING CUTTING MACHINE OPERATOR Brionna Giang MD SEND OUTS Performing Organization Address City/[facility] Co de Phone Number [facility] [address] [place] [address], * HPV HIGH RISK (07/22/2023 11:15 AM FACING CUTTING MACHINE OPERATOR) Pathologist [facility] TYPE 16 Negative Negative 07/24/2023 5:14 PM FACING CUTTING MACHINE OPERATOR [facility] TYPE 18 Negative Negative 07/24/2023 5:14 PM FACING CUTTING MACHINE OPERATOR [facility] OTHER HIGH RISK TYPES Negative Negative 07/24/2023 5:14 PM FACING CUTTING MACHINE OPERATOR [facility] Other (Cervical) Non-Blood / Unknown 07/22/2023 11:15 AM FACING CUTTING MACHINE OPERATOR 07/23/2023 9:42 AM FACING CUTTING MACHINE OPERATOR Narrative [facility] - 07/24/2023 5:14 PM FACING CUTTING MACHINE OPERATOR HPV types 16, 18, 31, 33, 35, 39, 45, 51, 52, 56, 58, 59, 66 and 68 DNA were undetectable or below the pre-set threshold. Methodology: Gregory Dudley 4800 HPV Test Brionna Giang MD MICROBIOLOGY [facility] [address] [place] [address], from Last 3 Months or Most Recently [...] 10:08 PM 08/22/2010 1:01 AM Care Teams Senior Windows Administrator Relationship Specialty [place] [id number] [place] [address] PCP - General Family Practice 07/22/23
--- OUTSIDE RECORDS SUMMARY | 2024-04-11 17:58 | XMS_ITS | Encounter Summary ---
Author Organization [place] Address [address] [place] [address] Care Team Providers Care Staffing Specialist Name Role Phone Anni Nair PA-C Primary Care Provider [phone] Shannan Malcolm ART OBJECTS SUPERVISOR Unavailable [phone] Nabeel Nolan MD Unavailable [phone] Shannan Malcolm CNP Primary Care Provider [phone] Mattie Tellez APRN ART OBJECTS SUPERVISOR Unavailable [phone] Encounter Details Date Type Department Care Team (Late st Contact Info) Description 03/19/2022 MyC Medical Advice [address] [place] [address] Shannan Malcolm, ART OBJECTS SUPERVISOR [address] [place] [address] Social History Tobacco Use Types Packs/Day [...] on file Legal Sex Female 3:13 AM SECURITY ASSOCIATE Gender Identity Female 02/08/2022 7:17 AM [...] documented as of this encounter Care Teams Staffing Specialist Relationship Specialty Start Date End Date Anni Nair PA-C PCP - General Physician Bulb Assembler 10/01/17 07/08/22 Shannan Malcolm CNP [address] [place] [id number] PCP - General Nurse Practitioner - Family 07/09/22 Shannan Malcolm CNP [address] [place] [id number] Assigned PCP 04/07/22 Nabeel Nolan MD [address] [place] [address] Assigned Behavioral Health Provider 06/02/22 09/21/22 Mattie Tellez APRN ART OBJECTS SUPERVISOR [address] [place] [address] Assigned Behavioral Health Provider 09/22/22 documented as of this encounter
--- OUTSIDE RECORDS SUMMARY | 2024-04-11 17:58 | XMS_ITS | Encounter Summary ---
Author Organization [place] Address [address] [place] [address] Care Team Providers Care Kiss Mixer Name Role Phone Azra Samano APRN, CNP Primary Care Provider Unavailable [facility] Primary Care Provider Anni Nair-C Primary Care Provider Anni Nair-C Unavailable [phone] Anni Nair-C Unavailable [phone] Lesli Ham PA-C Unavailable [phone] Rd Arellano DO Unavailable [phone] Anni Nair-C Unavailable [phone] Shannan Malcolm CNP Unavailable [phone] Shannan Malcolm CNP Unavailable [phone] Nabeel Nolan MD Unavailable [phone] Shannan Malcolm CNP Primary Care Provider Mattie Tellez APRN THIRD SHIFT LIEUTENANT Unavailable [phone] Reason for Visit * Reason Onset Date Comments Outreach 07/27/2015 [facility] att 1 Encounter Details Date Type Department Care Team (Late st Contact Info) Description 07/27/[address] [address] Azra Samano APRN CNP NO INFO AVAILABLE 08/06/2022 Outreach ([facility] att [...] file Legal Sex Female 3:13 AM MANAGER TRADE MARKETING Gender Identity Female 02/08/2022 7:17 AM CDT Sexual Orientation Choose not to disclose 2021 7:17 AM CDT documented as of this encounter Miscellaneous Notes * Telephone Encounter - Michael Benoit - 07/27/2015 5:54 PM CST 07/27/15 Call Regarding Preventive Health Screening Cervical/PAP Attempt 1 Message on male Comments: Outreach Weld Fitter cnt GER TRADE MARKETING documented in this encounter Plan of Treatment Not on file documented as of this encounter Visit Diagnoses Not on filedocumented in this encounter Additional Health Concerns Infection Onset Date Last Indicated Resolved Time Rule Out COVID-19 03/09/2022 03/09/2022 03/30/2022 11:39 PM CDT Assessment Noted Time PHQ-9 Depression Total Score: 14 016 8:04 AM MANAGER TRADE MARKETING documented as of this encounter Care Teams Kiss Mixer Relationship Specialty Start Date End Date Azra Samano APRN THIRD SHIFT LIEUTENANT PCP - General Nurse Practitioner 01/20/14 11/08/15 [facility] - [address] [address] PCP - General 11/09/15 09/30/17 Anni Nair PA-C [address] [place] [id number] PCP - General Physician Retail Account Specialist 10/01/17 07/08/22 Anni Nair PA-C [address] [facility] [place] [address] PCP - Assigned PCP 12/09/16 08/12/18 Shannan Malcolm, [place] [address] [place] [address], [place] [address] PCP - General Nurse Practitioner - Family 07/09/22 Anni Nair PA-C [address] [place] [address] [place] [address] Assigned PCP 12/09/16 11/29/18 Lesli Ham PA-C [address] [place] [address], [place] [address] Assigned PCP 11/30/18 12/06/18 Rd Arellano DO [address] [place] [address], [place] [address] Assigned PCP 12/07/18 04/23/20 Anni Nair PA-C [address] [place] [address] [place] [address] Assigned PCP 04/24/20 10/15/20 Shannan Malcolm, [place] [address] [place] [address], [place] [address] Assigned PCP 02/24/22 03/16/22 Shannan Malcolm, [place] [address] [place] [address], [place] [address] Assigned PCP 04/07/22 Nabeel Nolan MD [address] [place] [address] Assigned Behavioral Health Provider 06/02/22 09/21/22 Mattie eTllez APRN [facility] [address] [place] [address] Assigned Behavioral Health Provider 09/22/22 documented as of this encounter
--- NOTE | 2024-04-11 21:51 | ED_ITS ---
HPI - Abdominal Pain General Date Seen: 04/11/24 Chief Complaint: Abdominal Pain Stated Complaint: abdomen pain post surgery Time Seen by Provider: 04/11/24 17:32 Source: patient and family Mode of arrival: ambulatory Limitations: no limitations History of Present Illness HPI narrative: Pt had her gallbladder out at [facility] end of March. She states her incisions are pinching and pulling and burning. Pt also reports she is shaky and nauseous. The nausea is the worst Patient presents here with her daughter in room 1, she reports that she is using oxycodone for the discomfort, as prescribed by her surgeon, no fevers no chills she is eating and drinking a little bit, although not a lot, she is passing gas, denies any chest pain shortness of breath associated with this. Denies any leg swelling. History in the past of some alcohol issues MD elicited complaint: abdominal pain Related Data Home Medications ?Medication ?Instructions ?Recorded ?Confirmed clonazepam 0.5 mg tablet 0.5 mg PO HS PRN 03/18/24 04/04/24 dexmethylphenidate 15 mg 15 mg PO DAILY 03/18/24 04/04/24 capsule,extended release [id number] (Focalin XR) fluoxetine 20 mg capsule 60 mg PO DAILY 03/18/24 04/04/24 lorazepam 0.5 mg tablet (Ativan) 0.5 mg PO BID-TID PRN 03/18/24 03/18/24 Previous Rx's ?Medication ?Instructions ?Recorded hydrocodone 5 mg-acetaminophen 325 1 tab PO Q6H PRN pain #15 tabs 04/05/24 mg tablet oxycodone 5 mg tablet 5 mg PO Q8H PRN pain #15 tabs 04/06/24 oxycodone 5 mg tablet 5 mg PO Q8H PRN pain #10 tabs 04/08/24 sulfamethoxazole 400 1 tab PO BID #14 tabs 04/10/24 mg-trimethoprim 80 mg tablet (Bactrim) Allergies Allergy/AdvReac Type Severity Reaction Status Date / Time Penicillins Allergy Severe Hives Verified 04/11/24 17:28 Review of Systems Status of ROS Reports: 10 or more systems reviewed and unremarkable except as noted in History and below PFSH PFSH Surgical History History of appendectomy ?Z90.49 - Acquired absence of other specified parts of digestive tract (ICD- 10) Social History Smoking Status: Never smoker Do you use any of these nicotine containing products: None Second hand tobacco smoke exposure: No How often do you have a drink containing alcohol: never AUDIT-C Alcohol total score: 0 Non-prescribed substance use: denies use Non-prescribed substance use details: 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 Exam Narrative: Exam Narrative: On examination she is in no apparent distress her vital signs are listed in normal pupils equal round reactive to light there is no scleral icterus redness or TMs are normal oropharynx is normal her neck is supple full range of motion chest is clear bilaterally no wheezing crackles noted, her abdomen shows the portals of entry from her laparoscopic cholecystectomy with some tenderness noted. Bowel sounds are normal in all areas. No weeping from the laparoscopic portals of entry. There is no evidence of any CVA tenderness, no redness, and she has no swelling of her legs Const: Vital Signs, click to edit/add: Vital Signs - 24 hr 04/11/24 17:25 Temperature 98.6 F Pulse Rate [Right Pulse Oximeter] 90 Respiratory Rate 16 Blood Pressure [Ri ght Upper Arm] 134/87 Pulse Oximetry 97 Oxygen Delivery Me thod Room Air Documenting provider has reviewed patient's vital signs: yes Course Course ED Course: I discussed with the patient that we will use some a oxycodone, did prescribe her 10 tablets,[employer] did come back in tell me that she did just receive 45 tablets, I then was uncomfortable giving her more, so I just gave her the Zofran we are going to give her. She did call back and I did discuss with her, she is got 25 hydrocodones which she got rid of after she talked with her doctor as they made her only nauseous, she has received 15 tablets of oxycodone, Initially they did tell me that was 60 tablets she receives so this is not quite add up according to the POLE PEELER. I did discuss with her that I would be willing to give her 4 tablets overnight that she can talk to her surgeon, I did say that if her pain is getting worse she has come back we need to do blood test, and I will also suggested Toradol, she was grateful, for the 4 tablets, and told me she will call the surgeon on Saturday, return here if worsening Vital Signs Vital signs: Initial Vital Signs Temperature 98.6 F 04/11/24 17:25 Temperature Source Temporal Artery Scan 04/11/24 17:25 Pulse Rate 90 04/11/24 17:25 Pulse Rhythm Regular 04/11/24 17:25 Pulse Strength 3+ Normal 04/11/24 17:25 Respiratory Rate 16 04/11/24 17:25 Blood Pressure 134/87 04/11/24 17:25 Blood Pressure Mean 102 04/11/24 17:25 Blood Pressure Position Sitting 04/11/24 17:25 Pulse Oximetry 97 04/11/24 17:25 Oxygen Delivery Method Room Air 04/11/24 17:25 Vital Signs Temperature 98.6 F 04/11/24 17:25 Pulse Rate 90 04/11/24 17:25 Respiratory Rate 16 04/11/24 17:25 Blood Pressure 134/87 04/11/24 17:25 Pulse Oximetry 97 04/11/24 17:25 Oxygen Delivery Method Room Air 04/11/24 17:25 Temperature 98.6 F 04/11/24 17:25 Pulse Rate 90 04/11/24 17:25 Respiratory Rate 16 04/11/24 17:25 Blood Pressure 134/87 04/11/24 17:25 Pulse Oximetry 97 04/11/24 17:25 Oxygen Delivery Method Room Air 04/11/24 17:25 MDM - Abdominal Pain MDM Narrative Medical decision making narrative: During the evaluation of this patient I considered multiple differential diagnosis including life-threatening differentials which are appendicitis, aortic aneurysm, mesenteric ischemia, bowel perforation, ectopic , volvulus and bowel obstruction, other differential diagnosis include but are not limited to inflammatory bowel disease, cholecystitis, pancreatitis, hepatitis, gastritis, GERD, diverticulitis, peptic ulcer disease, pyelonephritis/UTI, renal colic/stone, pelvic inflammatory disease, cervicitis, endometritis, intrauterine , dysfunctional uterine bleeding, ovarian cyst/torsion, spontaneous as well as other etiologies Medical Records Attestation: I reviewed the patient's medical records. Discharge Plan Discharge Clinical Impression: Post-op pain, S/P laparoscopic cholecystectomy Instructions: Pain Management (ED), Opioid Safety (ED), Pain Management After Surgery (DC) Additional Instructions: Home, rest, continue with medications, continue with her MiraLax, mandatory call tomorrow to your surgeon, or at least her surgeons RN to discuss, back here if increasing abdominal pain fevers chills, inability to pass her stools, or vomiting. Prescriptions: No Action dexmethylphenidate [Focalin XR] 15 mg capsule,ER biphasic 50-50 15 mg PO DAILY fluoxetine 20 mg capsule 60 mg PO DAILY lorazepam [Ativan] 0.5 mg tablet 0.5 mg PO BID-TID PRN clonazepam 0.5 mg tablet 0.5 mg PO HS PRN hydrocodone-acetaminophen 5-325 mg tablet 1 tab PO Q6H PRN (Reason: pain) Qty: 15 0RF oxycodone 5 mg tablet 5 mg PO Q8H PRN (Reason: pain) Qty: 15 0RF oxycodone 5 mg tablet 5 mg PO Q8H PRN (Reason: pain) Qty: 10 0RF sulfamethoxazole-trimethoprim [Bactrim] 400-80 mg tablet 1 tab PO BID Qty: 14 0RF Follow Up/Referrals: Provider,Not a Local [Primary Care Provider] - Stand Alone Forms: [facility] Info Instructions
== END 2024-04-11 18:09 | disposition home or self-care (01) ==
PROVIDERS: Emergency Provider Family Medicine
DX: G89.18 Other acute postprocedural pain (principal)
CPT/HCPCS: 99282; 99283; 99284

== ENCOUNTER 2024-04-14 14:33 | Outpatient (CLI) | payer MEDICAID, SELFPAY ==
--- OUTSIDE RECORDS SUMMARY | 2024-04-14 14:39 | XMS_ITS | Referral Summary ---
Author Organization [facility] Address [address] [place] [address] Care Team Providers Care Casey Saw Operator Name Role Phone Shannan Malcolm CNP Unavailable [phone] Shannan Malcolm CNP Primary Care Provider [phone] Mattie Tellez APRN, CNP Unavailable [phone] Encounters Date Type Department Care Team Description 04/14/2024 MyC Medical Advice [facility] [address] [phone] Mattie Tellez APRN CNP 04/06/2024 7:30 AM CDT Virtual Visit [facility] [address] [phone] Lexi Farnsworth LICSW Generalized anxiety disorder with panic attacks (Primary Dx); MDD (major depressive disorder), recurrent episode, mild (H); Attention deficit hyperactivity disorder (ADHD), predominantly inattentive type; PTSD (post-traumatic stress disorder) 04/06/2024 8:00 AM CDT Virtual Visit [facility] [address] [phone] Mattie Tellez APRN CNP Generalized anxiety disorder with panic attacks (Primary Dx); Attention deficit hyperactivity disorder (ADHD), predominantly inattentive type; MDD (major depressive disorder), recurrent episode, moderate (H); PTSD (post-traumatic stress disorder) 03/29/2024 MyC Refill [facility] [address] [place] [address] [address] [place] [phone] Mattie Tellez APRN CROP PRODUCTION ADVISOR Refill Request 03/29/2024 MyC Refill [address] [place] [phone] Shannan Malcolm CNP Refill Request 03/25/2024 MyC Medical Advice [facility] [address] [place] [address] 400 [place] [phone] Mattie Tellez APRN CNP 03/17/2024 Orders Only [facility] [address] [place] [address] 400 [place] [phone] Mattie Tellez APRN CNP Generalized anxiety disorder with panic attacks (Primary Dx) 03/16/2024 MyC Refill [facility] [address] [place] [address] 400 [place] [phone] Mattie Tellez APRN CROP PRODUCTION ADVISOR Refill Request 03/14/2024 MyC Medical Advice [facility] [address] [place] [address] 400 [place] [phone] Mattie Tellez, ROSEMARIE CROP PRODUCTION ADVISOR Medication Request (Change anti-anxiety me... 03/09/2024 MyC Refill [facility] [address] 400 [place] [phone] Mattie Tellez APRN CROP PRODUCTION ADVISOR Refill Request (Focalin 5 mg) 03/02/2024 1:00 PM CDT Virtual Visit [address] [place] [phone] Shannan Malcolm, GROVER Infection due to 2019 novel coronavirus (Primary Dx); Mild intermittent asthma without complication 03/02/[address] [place] [phone] Shannan Malcolm CNP 02/26/2024 MyC Medical Advice [facility] [place] [phone] [phone] [facility] 02/24/[address] [place] [phone] Shannan Malcolm, CROP PRODUCTION ADVISOR Refill Request (Prozac 40) 02/24/2024 MyC Refill [facility] [address] [place] [address] [place] [phone] Mattie Tellez APRN CROP PRODUCTION ADVISOR Refill Request 02/24/2024 10:30 AM CDT Virtual Visit [facility] [address] [place] [phone] Mattie Tellez APRN CNP Generalized anxiety disorder with panic attacks (Primary Dx); PTSD (post-traumatic stress disorder); Attention deficit hyperactivity disorder (ADHD), predominantly inattentive type; Alcohol use disorder in remission; MDD (major depressive disorder), recurrent episode, mild (H) 02/17/2024 MyC Refill [facility] [address] [place] [address] [place] [phone] Mattie Tellez APRN CROP PRODUCTION ADVISOR Refill Request (dexmethylphenidate (FOCALI... 02/17/2024 MyC Refill [facility] [address] [place] [address] 400 [place] [phone] Mattie Tellez APRN CROP PRODUCTION ADVISOR Refill Request (dexmethylphenidate (FOCALI... 01/27/2024 8:00 AM CDT Virtual Visit [facility] [address] [place] [phone] Mattie Tellez APRN CNP Generalized anxiety disorder with panic attacks (Primary Dx); PTSD (post-traumatic stress disorder); Alcohol use disorder in remission; MDD (major depressive disorder), recurrent episode, mild (H); Attention deficit hyperactivity disorder (ADHD), predominantly inattentive type 01/23/2024 MyC Refill [facility] [address] [place] [phone] Mattie Tellez APRN CNP Refill Request (lorazepam (ATIVAN) 0.5 MG ... 01/17/2024 MyC Medical Advice [facility] [address] [place] [phone] Mattie Tellez APRN CNP from Last 3 Months Allergies Active Allergy [...] other (insomnia). Monitor for drowsiness. 30 tablet 10/21/20 24 Active clonazePAM (KLONOPIN) 0.5 MG tabletIndications [...] (01/20/2014): Patient is followed by Azra Shine PRINCIPAL BIOSTATISTICIAN, PRINCIPAL BIOSTATISTICIAN for ongoing prescription of a controlled medicine. [...] on file Legal Sex Female 3:13 AM ROLL CAPPER Gender Identity Female 02/08/2022 7:17 AM CDT [...] and gender (Octavio et al., NEJM, DOI: [id number]/[id number]) Blood BLOOD SPECIMEN / Unknown Venipuncture / Unknown 02/16/2022 10:35 AM CDT 02/16/2022 10:35 AM CDT Shannan Malcolm CROP PRODUCTION ADVISOR LAB - BLOOD ORDERABLES Fi nal Result [facility] LAB[facility]ATORY [facility] [address] Lab (no room number, 1st floor of clinic) [place] [address], [facility] [phone] * HIV Antigen Antibody Combo (10/14/2017 10:05 AM CDT) HIV Antigen Antibody Combo Nonreactive NR^Nonrea ctive 10/15/2017 11:16 AM CDT [facility] Comment:HIV-1 p24 Ag & HIV-1 /HIV-2 Ab Not Detected Blood specimen (specimen) 10/14/2017 10:05 AM CDT 10/14/2017 10:06 AM CDT us Noreen Buitrago PA-C LAB - BLOOD ORDERABLES Fi nal Result Performing Organization Address City/[facility]/ZIP Co de Phone Number [facility] [address] [place] [address] * Albumin Random Urine Quantitative with Creat Ratio (10/14/2017 10:04 AM CDT) Creatinine Urine 34 mg/dL 10/14/2017 6:08 PM CDT [facility] Albumin Urine mg/L <5 mg/L 10/14/2017 6:13 PM CDT [facility] Albumin Urine mg/g Cr Unable to calculate due to low value 0 - 25 mg/g Cr 10/14/2017 6:13 PM CDT [facility] Urine specimen (specimen) 10/14/2017 10:04 AM CDT 10/14/2017 10:05 AM CDT us Noreen Buitrago PA-C LAB - URINE ORDERABLES Fi nal Result [facility] [address] [place] [address], [facility] [phone] * HPV High Risk Types DNA Cervical (10/14/2017 9:54 AM CDT) HPV Source SurePath 10/14/2017 9:41 AM CDT [facility] HPV 16 DNA Negative NEG^Nega tive [...] and its performance characteristics determined by the [facility], Molecular Diagnostics Laboratory. It has not [...] 9:12 AM CDT [facility] Comment:[id number] Cervical Cells 10/14/2017 9: 54 AM CDT 10/14/2017 10:07 AM CDT us Noreen Buitrago PA-C LAB - BLOOD ORDERABLES Fi nal Result [facility] [address] [place] [address] [address] * Pap imaged thin layer screen with HPV - recommended age 30 - 65 years (select HPV order below) (10/14/2017 9:40 AM CDT) PAP SAL Vasquez Report Patient Name: SKYLAR AKERS MR#: [id number] Specimen #: [id number] Collected: 10/14/2017 Received: 10/14/2017 Reported: 10/16/2017 10:22 [...] RONAK Garcia (ASCP) Processed and screened at [facility], [facility] CLINICAL HISTORY: Currently not having periods, Intra-Uterine Device, Previous normal pap Date of Last Pap: 10/09/2016, Papanicolaou Test Limitations: ??Cervical cytology is a screening test with limited sensitivity; regular screening is critical for cancer prevention; Pap tests are primarily effective for the diagnosis/preventi on of squamous cell carcinoma, not adenocarcinomas or other cancers. TESTING LAB LOCATION: [address] ??[phone] COLLECTION SITE: Client: ??[facility] Location: NETTIE (RHunter VASQUEZ Cytologic material (specimen) 10/14/2017 9:40 AM CDT 10/14/2017 3:39 PM CDT Noreen Buitrago PA-C LAB - OPTIME CLINICAL SPE CIMEN Final Result COPATH from Last 3 Months or Most Recently Relevant to Health Maintenance Insurance [employer] Advance Directives For more information, please contact: [phone] * Full Code (Latest Code Status on File) Date Activated Date Inactivated Comments 11/14/2021 3:00 AM 11/17/2021 3:53 PM All basic and advanced life-sustaining interventions are performed as appropriate Question Answer Comments Code status determined by: Discussion with patie nt/ legal decision maker Care Teams Casey Saw Operator Relationship Specialty Start Date End Date Shannan Malcolm CNP [address] [place] [address] [phone] PCP - General Nurse Practitioner - Family 07/09/22 Shannan Malcolm CNP [address] [place] [address] [id number] Assigned PCP 04/07/22 Mattie Tellez APRN CROP PRODUCTION ADVISOR [address] [place] [address] [id number] Assigned Behavioral Health Provider 09/22/22
--- OUTSIDE RECORDS SUMMARY | 2024-04-14 14:39 | XMS_ITS | Clinical Summary ---
Author Organization [facility] Address [address] [place] [address] Care Team Providers Care Circle Saw Operator Name Role Phone Shannan Malcolm CNP Unavailable [phone] Shannan Malcolm CNP Primary Care Provider [phone] Mattie Tellez APRN CROSS ROLLER Unavailable [phone] Allergies Active Allergy Reactions Criticality Noted Date [...] Patient is followed by Azra Shine NP, MOTION PICTURE SET UP WORKER for ongoing prescription of a controlled medicine. [...] Care Team Description 04/14/2024 MyC Medical Advice [facility] [address] [place] [address] 400 [place] [address] Mattie Tellez APRN CROSS ROLLER 04/06/2024 8:00 AM CDT Virtual Visit [facility] [address] [place] [phone] Mattie Telelz APRN CROSS ROLLER Generalized anxiety disorder with panic attacks (Primary Dx); Attention deficit hyperactivity disorder (ADHD), predominantly inattentive type; MDD (major depressive disorder), recurrent episode, moderate (H); PTSD (post-traumatic stress disorder) 04/06/2024 7:30 AM CDT Virtual Visit [facility] [address] [place] [address] [address] [place] [address] Lexi Farnsworth, ANDREI Generalized anxiety disorder with panic attacks (Primary Dx); MDD (major depressive disorder), recurrent episode, mild (H); Attention deficit hyperactivity disorder (ADHD), predominantly inattentive type; PTSD (post-traumatic stress disorder) 03/29/2024 MyC Refill [facility] [address] [facility] [address] [place] [phone] Mattie Tellez APRN CNP Refill Request 03/29/2024 MyC Refill [address] [place] [phone] Shannan Malcolm CNP Refill Request 03/25/2024 MyC Medical Advice [facility] [address] [place] [phone] Mattie Tellez APRN CNP 03/17/2024 Orders Only [facility] [address] [place] [phone] Mattie Tellez APRN CNP Generalized anxiety disorder with panic attacks (Primary Dx) 03/16/2024 MyC Refill [facility] [address] [place] [phone] Mattie Tellez APRN CNP Refill Request 03/14/2024 MyC Medical Advice [facility] [address] [facility] [address] [place] [phone] Mattie Tellez APRN CNP Medication Request (Change anti-anxiety me... 03/09/2024 MyC Refill [facility] [address] [place] [address] [address] [place] [phone] Mattie Tellez APRN CNP Refill Request (Focalin 5 mg) 03/02/2024 1:00 PM CDT Virtual Visit [address] [place] [phone] Shannan Malcolm, GROVER Infection due to 2019 novel coronavirus (Primary Dx); Mild intermittent asthma without complication 03/02/[address] [place] [address] Shannan Malcolm CNP 02/26/2024 MyC Medical Advice [facility] [address] [address] [address] [phone] Betty [facility] 02/24/2024 10:30 AM CDT Virtual Visit [facility] [place] [address] [place] [address] [place] [phone] Mattie Tellez APRN CNP Generalized anxiety disorder with panic attacks (Primary Dx); PTSD (post-traumatic stress disorder); Attention deficit hyperactivity disorder (ADHD), predominantly inattentive type; Alcohol use disorder in remission; MDD (major depressive disorder), recurrent episode, mild (H) 02/24/[address] [place] [address] Shannan Malcolm, CROSS ROLLER Refill Request (Prozac 40) 02/24/2024 MyC Refill [facility] [place] [address] [place] [phone] Mattie Tellez APRN CROSS ROLLER Refill Request 02/17/2024 MyC Refill [facility] [address] [place] [phone] Mattie Tellez APRN CROSS ROLLER Refill Request (dexmethylphenidate (FOCALI... 02/17/2024 MyC Refill [facility] [address] [place] [address] [place] [phone] Mattie Tellez APRN CROSS ROLLER Refill Request (dexmethylphenidate (FOCALI... 01/27/2024 8:00 AM CDT Virtual Visit [facility] [address] [place] [address] [place] [phone] Mattie Tellez APRN CNP Generalized anxiety disorder with panic attacks (Primary Dx); PTSD (post-traumatic stress disorder); Alcohol use disorder in remission; MDD (major depressive disorder), recurrent episode, mild (H); Attention deficit hyperactivity disorder (ADHD), predominantly inattentive type 01/23/2024 MyC Refill [facility] [address] [place] [phone] Mattie Tellez APRN CNP Refill Request (lorazepam (ATIVAN) 0.5 MG ... 01/17/2024 MyC Medical Advice [facility] [address] [place] [phone] Mattie Tellez APRN CNP from Last 3 Months Immunizations Name Administration [...] on file Legal Sex Female 3:13 AM VISITOR SERVICES INFORMATION ASSISTANT Gender Identity Female 02/08/2022 7:17 AM [...] 01/01/2024, Additional history exists GLUCOSE 02/16/2025 02/16/2022, 06/0 [...] and gender (Octavio et al., NEJ, DOI: [id number]) Blood BLOOD SPECIMEN / Unknown Venipuncture / Unknown 02/16/2022 10:35 AM CDT 02/16/2022 10:35 AM CDT us Shannan Malcolm CNP LAB - BLOOD ORDERABLES Fi nal Result LABORATORY [facility] [address] Lab (no room number, 1st floor of clinic) [place] [address], [facility] [phone] * HIV Antigen Antibody Combo (10/14/2017 10:05 AM CDT) HIV Antigen Antibody Combo Nonreactive NR^Nonrea ctive 10/15/2017 11:16 AM CDT [facility] Comment:HIV-1 p24 Ag & HIV-1 /HIV-2 Ab Not Detected Blood specimen (specimen) 10/14/2017 10:05 AM CDT 10/14/2017 10:06 AM CDT us Noreen Buitrago PA-C LAB - BLOOD ORDERABLES Fi nal Result [facility] [address] [place] [address] * Albumin Random Urine Quantitative with Creat Ratio (10/14/2017 10:04 AM CDT) Creatinine Urine 34 mg/dL 10/14/2017 6:08 PM CDT [facility] Albumin Urine mg/L <5 mg/L 10/14/2017 6:13 PM CDT [facility] Albumin Urine mg/g Cr Unable to calculate due to low value 0 - 25 mg/g Cr 10/14/2017 6:13 PM CDT [facility] Urine specimen (specimen) 10/14/2017 10:04 AM CDT 10/14/2017 10:05 AM CDT us Noreen Buitrago PA-C LAB - URINE ORDERABLES Fi nal Result [facility] [address] [place] [address], [facility] [phone] * HPV High Risk Types DNA Cervical (10/14/2017 9:54 AM CDT) HPV Source SurePath 10/14/2017 9:41 AM CDT [facility] HPV 16 DNA Negative NEG^Nega tive 10/18/2017 10:59 AM CDT [facility] HPV 18 DNA Negative NEG^Nega tive 10/18/2017 10:59 AM CDT [facility] Other HR HPV Negative NEG^Nega tive 10/18/2017 10:59 AM CDT [facility] Final Diagnosis This patient's sample is negative for HPV DNA. 10/18/2017 10:59 AM CDT [facility] Comment: This test was developed and its performance characteristics determined by the [facility], Molecular Diagnostics Laboratory. It has not [...] Description Cervical Cells 10/17/2017 9:12 AM CDT [facility] Comment:[id number] Cervical Cells 10/14/2017 9: 54 AM CDT 10/14/2017 10:07 AM CDT us Noreen Buitrago PA-C LAB - BLOOD ORDERABLES nal Result [facility] [address] [place] [address] [address] * Pap imaged thin layer screen with HPV - recommended age 30 - 65 years (select HPV order below) (10/14/2017 9:40 AM CDT) PAP SAL Doherty Report Patient Name: SKYLAR AKERS MR#: [id number] Specimen #: [id number] Collected: 10/14/2017 Received: 10/14/2017 Reported: 10/16/2017 10:22 [...] RONAK Garcia (ASCP) Processed and screened at [facility], [facility] CLINICAL HISTORY: Currently not having periods, Intra-Uterine Device, Previous normal pap Date of Last Pap: 10/09/2016, Papanicolaou Test Limitations: ??Cervical cytology is a screening test with limited sensitivity; regular screening is critical for cancer prevention; Pap tests are primarily effective for the diagnosis/preventi on of squamous cell carcinoma, not adenocarcinomas or other cancers. TESTING LAB LOCATION: [facility] [address] [place], [place] ??[address] COLLECTION SITE: Client: ??[facility] Location: RVFP (R) COPATH Cytologic material (specimen) 10/14/2017 9:40 AM CDT 10/14/2017 3:39 PM CDT Noreen Buitrago PA-C LAB - OPTIME CLINICAL SPE GENO Final Result COPATH from Last 3 Months or Most Recently Relevant to Health Maintenance [place] [address] [employer] Advance Directives For more information, please contact: [phone] * Full Code (Latest Code Status on File) Date Activated Date Inactivated Comments 11/14/2021 3:00 AM 11/17/2021 3:53 PM All basic and advanced life-sustaining interventions are performed as appropriate Question Answer Comments Code status determined by: Discussion with patie nt/ legal decision maker Care Teams Circle Saw Operator Relationship Specialty Start Date End Date Shannan Malcolm CNP [address] [place], [place] [phone] PCP - General Nurse Practitioner - Family 07/09/22 Shannan Malcolm CNP [address] [place] [address] [id number] Assigned PCP 04/07/22 Mattie Tellez APRN CNP [address] [place] [address] [id number] Assigned Behavioral Health Provider 09/22/22
--- OUTSIDE RECORDS SUMMARY | 2024-04-14 14:40 | XMS_ITS | Encounter Summary ---
Author Organization [facility] Address [address] [place] [address] Care Team Providers Care Senior Administrative Services Officer Name Role Phone Shannan Malcolm CNP Unavailable [phone] Shannan Malcolm CNP Primary Care Provider [phone] Mattie Tellez APRN TOMBSTONE CARVER Unavailable [phone] Encounter Details Date Type Department Care Team ([facility] st Contact Info) Description 03/02/[address] [phone] Shannan Malcolm, TOMBSTONE CARVER [address] [place] [address] [phone] Social History Tobacco Use Types Packs/Day Years [...] on file Legal Sex Female 3:13 AM SOFTWARE INTERN Gender Identity Female 02/08/2022 7:17 AM [...] a primary care provider at an [facility] or [facility] within the past [...] patient is taking: NONE. Is patient taking [place]'s Wort? No Is patient taking [place]'s Wort or any meds from List 1? [...] will be scheduled or transferred to a citrus fruit colorer at the end of this call. Maria Antonia Vázquez RN documented in this encounter Plan of Treatment Not on file documented as of this encounter Visit Diagnoses Diagnosis Generalized anxiety disorder with panic attacks documented in this encounter Additional Health Concerns Assessment Noted Time PHQ-9 Depression Total Score: 9 03/02/20 24 8:53 AM CDT documented as of this encounter Care Teams Senior Administrative Services Officer Relationship Specialty Start Date End Date Shannan Malcolm CNP [address] [place] [address] [phone] PCP - General Nurse Practitioner - Family 07/09/22 Shannan Malcolm CNP [address] [place] [address] Assigned PCP 04/07/22 Mattie Tellez APRN TOMBSTONE CARVER [address] [place] [address] Assigned Behavioral Health Provider 09/22/22 documented as of this encounter
--- OUTSIDE RECORDS SUMMARY | 2024-04-14 14:40 | XMS_ITS | Encounter Summary ---
Author Organization [facility] Address [address] [place] [address] Care Team Providers Care Kaiawhina Kura [place] Maori Name Role Phone Shannan Malcolm CNP Unavailable [phone] Shannan Malcolm CNP Primary Care Provider [phone] Mattie Tellez APRN LINK WIRE FABRIC MACHINE OPERATOR Unavailable [phone] Reason for Visit * Reason Onset Date Comments Medication Request 10/26/2023 an afternoon ADHD medication Encounter Details Date Type Department Care Team (Late st Contact Info) Description 10/26/2023 [facility] Medical Advice [facility] Health & [facility] [address] [address] [place] [address] Mattie Tellez APRN LINK WIRE FABRIC MACHINE OPERATOR [address] [place] [address] Medication Request (an afternoon ADHD [...] on file Legal Sex Female 3:13 AM ORACLE REPORTS DEVELOPER Gender Identity Female 02/08/2022 7:17 AM [...] PMHNP- [facility] ([facility]) [facility] RN reviewed order history - [...] Class: E-Prescribe Earliest Fill Date: 10/28/2023 Order: [id number] E-Prescribing Status: Receipt confirmed by pharmacy (10/28/2023 10:32 AM CDT) Medication Administration Instructions as needed in the afternoon for ADHD. Pharmacy [facility] [address] HERI MONTGOMERY RN sent a MyC message [...] documented as of this encounter Care Teams Kaiawhina Kura [place] Maori Relationship Specialty Start Date End Date Shannan Malcolm CNP [address] [place] [address] PCP - General Nurse Practitioner - Family 1/30/23 Shannan Malcolm CNP [address] [place], [place] 739202 Assigned PCP 04/07/22 Mattie Tellez APRN CNP [address] [place], [place] 869505 Assigned Behavioral Health Provider 09/22/22 documented as of this encounter
--- OUTSIDE RECORDS SUMMARY | 2024-04-14 14:40 | XMS_ITS | Encounter Summary ---
Author Organization [place] Address [facility] [place] [address] Care Team Providers Care Tie Tape Machine Operator Name Role Phone Shannan Malcolm TELEGRAPH OFFICE TELEPHONE CLERK Unavailable [phone] Shannan Malcolm CNP Primary Care Provider + [phone] Mattie Tellez APRN TELEGRAPH OFFICE TELEPHONE CLERK Unavailable [phone] Encounter Details Date Type Department Care Team (Late st Contact Info) Description 02/26/2024 [facility] [place] [facility] [place] [id number] [address] Angie Hernández Social History Tobacco [...] on file Legal Sex Female 3:13 AM BONE PULLER Gender Identity Female 02/08/2022 7:17 AM CDT [...] as of this encounter Care Teams Tie Tape Machine Operator Relationship Specialty Start Date End Date Shannan Malcolm CNP [facility] [place] [address] PCP - General Nurse Practitioner - Family 07/09/22 Shannan Malcolm CNP [address] [place] [address] Assigned PCP 04/07/22 Mattie Tellez APRN CNP [address] [place] [address]16 Assigned Behavioral Health Provider 09/22/22 documented as of this encounter
--- OUTSIDE RECORDS SUMMARY | 2024-04-14 14:40 | XMS_ITS | Encounter Summary ---
Author Organization [place] Address [address] [place] [address] Care Team Providers Care Pipe Or Steam Fitter Furnace Installer Name Role Phone Shannan Malcolm CNP Unavailable [phone] Shannan Malcolm CNP Primary Care Provider + [phone] Mattie Tellez APRN LOG PREPARER Unavailable [phone] Reason for Visit * Reason Onset Date Comments Refill Request 03/29/2024 Encounter Details Date Type Department Care Team (Late st Contact Info) Description 03/29/2024 MyC Refill [facility] [address] [place] [address] Mattie Tellez, ROSEMARIE LOG PREPARER [address] [place] [address] Refill Request Social History Tobacco [...] on file Legal Sex Female 3:13 AM TILER Gender Identity Female 02/08/2022 7:17 AM CDT [...] No [x]Medication refilled per ???Medication Refill in Bus Monitor?? policy. []Medication unable to be refilled by [...] primary care provider. Referral placed for DBT. [facility] will call you to coordinate your care as prescribed by your provider. If you don't hear from a dental detail representative within 2 business days, please call [phone]. Safety plan reviewed. To the Emergency Department as needed or call after hours crisis line at [phone] or [phone]. [place] Crisis Text Line. Text [place] to 190610 or Suicide LifeLine Chat: suicidepreventionAnalyte Healthline.org/chat Schedule an appointment with me and Behavioral Health Pitting Machine Operator in 4 weeks Any medication(s) require lab monitoring? No documented in this encounter Plan of Treatment Not on file documented as of this encounter Visit Diagnoses Diagnosis Generalized anxiety disorder with panic attacks documented in this encounter Additional Health Concerns Assessment Noted Time PHQ-9 Depression Total Score: 9 03/02/20 24 8:53 AM CDT documented as of this encounter Care Teams Pipe Or Steam Fitter Furnace Installer Relationship Specialty Start Date End Date Shannan Malcolm CNP [address] [place] [address] 471192 PCP - General Nurse Practitioner - Family 07/09/22 Shannan Malcolm CNP [address] [place] [address] [id number] Assigned PCP 04/07/22 Mattie Tellez APRN LOG PREPARER [address] [place] [address] Assigned Behavioral Health Provider 09/22/22 documented as of this encounter
--- OUTSIDE RECORDS SUMMARY | 2024-04-14 14:40 | XMS_ITS | Encounter Summary ---
Author Organization [place] Address [address] [place] [address] Care Team Providers Care Sorter/Assay Tech Name Role Phone Shannan Malcolm CNP Unavailable [phone] Shannan Malcolm CNP Primary Care Provider + [phone] Mattie Tellez APRN POWDERER Unavailable [phone] Reason for Visit * Reason Onset Date Comments Refill Request 02/17/2024 dexmethylphenida te (FOCALIN XR) 10 MG 24 hr capsule Encounter Details Date Type Department Care Team (Late st Contact Info) Description 02/17/2024 MyC Refill [facility] Mental Health & [facility] [address] [place] [address] Mattie Tellez APRN POWDERER [address] [place] [address] Refill Request (dexmethylphenidate (FOCALI... 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 RETAIL AND PROMOTIONS COORDINATOR Gender Identity Female 02/08/2022 7:17 AM [...] No []Medication refilled per ???Medication Refill in Travel Registered Nurse Oncology?? policy. [x]Medication unable to be refilled by [...] []Scope of Practice: refill request processed by ETCHER ENAMELING/MA []Other: Medication(s) requested: - dexmethylphenidate (FOCALIN XR) 10 MG 24 hr capsule Date last ordered: 01/19/2024 Qty: 30 Refills:0 Take 1 capsule (10 mg) by mouth every morning With Focalin XR 5 mg for total dose of 15 mg. - Appropriate for refill? Provider to review. Controlled Substance Any Controlled Substance(s)? Yes [place] PIECE DYEING MACHINE TENDER checked? Yes Dexmethylphenidate ER 10 mg cp was last sold on for quantity of 30. Other controlled substance on [place] PIECE DYEING MACHINE TENDER?: Yes Requested medication(s) verified as identical to [...] or call after hours crisis line at [phone] or [phone]. [place] Crisis Text Line. Text [place] to 121757 or Suicide LifeLine Chat: suicidepreventionlifeline.org/chat Schedule an appointment with me in 4 weeks or sooner as needed. Call [facility] [phone] to schedule. Follow up with primary care provider as planned or for acute medical concerns. Call the psychiatric nurse line with medication questions or concerns at [phone]. MyChart may be used to communicate with [...] documented as of this encounter Care Teams Sorter/Assay Tech Relationship Specialty Start Date End Date Shannan Malcolm CNP [address] [place] [address] PCP - General Nurse Practitioner - Family 07/09/22 Shannan Malcolm CNP [address] [place] [address] Assigned PCP 04/07/22 Mattie Tellez APRN POWDERER [address] [place] [address] Assigned Behavioral Health Provider 09/22/22 documented as of this encounter
--- OUTSIDE RECORDS SUMMARY | 2024-04-14 14:40 | XMS_ITS | Encounter Summary ---
Author Organization [place] Address [facility] [place] [address] Care Team Providers Care Director Of Business Operations Name Role Phone Shannan Malcolm CNP Unavailable [phone] Shannan Malcolm CNP Primary Care Provider + [phone] Mattie Tellez APRN HANDLE BENDER Unavailable [phone] Encounter Details Date Type Department Care Team (Late st Contact Info) Description 03/17/2024 Orders Only [facility] Mental Health & [facility] [address] [place] [address] Mattie Tellez APRN HANDLE BENDER [address] [facility] [place], [place] [phone] Generalized anxiety disorder with panic attacks (Primary [...] on file Legal Sex Female 3:13 AM CLOTH WORKER Gender Identity Female 02/08/2022 7:17 AM [...] as of this encounter Care Teams Director Of Business Operations Relationship Specialty Start Date End Date Shannan Malcolm CNP [address] [place] [address] [id number] PCP - General Nurse Practitioner - Family 07/09/22 Shannan Malcolm CNP [address] [place] [address] [id number] Assigned PCP 04/07/22 Mattie Tellez APRN HANDLE BENDER [address] [place] [address] Assigned Behavioral Health Provider 09/22/22 documented as of this encounter
--- OUTSIDE RECORDS SUMMARY | 2024-04-14 14:40 | XMS_ITS | Encounter Summary ---
Author Organization [place] Address [facility] [place] [address] Care Team Providers Care Chemistry Quality Control Technician Name Role Phone Shannan Malcolm CNP Unavailable [phone] Shannan Malcolm CNP Primary Care Provider + [phone] Mattie Tellez APRN IT BUSINESS SYSTEMS ANALYST Unavailable [phone] Reason for Visit * Reason Comments RECHECK Encounter Details Date Type Department Care Team (Latest Contact Info) Description 01/27/2024 8:00 AM CDT Virtual Visit [facility] Health & [facility] [address] [place] [address] [address] [place] [address] Mattie Tellez, ROSEMARIE IT BUSINESS SYSTEMS ANALYST [address] [place], [place] [address] Generalized anxiety disorder with panic attacks (Primary [...] file Legal Sex Female 3:13 AM ROLL SLICING MACHINE TENDER Gender Identity Female 02/08/2022 7:17 [...] Instructions * Patient Instructions* Mattie Tellez APRN IT BUSINESS SYSTEMS ANALYST - 01/27/2024 8:00 AM CDT For crisis resources, please see the information at the end of this document Thank you for coming to the [facility] M[facility] HE[facility]. TREATMENT PLAN: Medications: DISCONTINUE mirtazapine. START [...] 4 weeks or sooner as needed. Call [facility] [phone] to schedule. Follow up with primary care provider as planned or for acute medical concerns. Call the psychiatric nurse line with medication questions or concerns at [phone]. MyChart may be used to communicate with [...] patientis advised that I will not prescribe truck terminal manager/high dose benzodiazepine due to risk in addition [...] cardiovascular risks, increased blood pressure. Financial Assistance [phone] [email or web address] Billing [phone] Central Billing Office, ealth: [phone] [facility] [phone] Medical Records [phone] [facility] Patient Bill of Rights [email or web address] MENTAL HEALTH CRISIS RESOURCES: For a emergency help, please call 911 or go to the nearest Emergency Department. Emergency Walk-In Options: Oz Unit @ [facility] ([place]): [phone] - Specialized mental health emergency area designed to be [facility] ([place]): [phone] [facility] Acute Psychiatry Services ([place]): [phone] [facility]): [phone] [facility] Crisis Information: Karen: [phone] Endy: [phone] Richy HEAD) - Adult: [phone] Child: [phone] Jeff - Adult: [phone] Child: [phone] Miller: [phone] List of all [facility] resources: https://de.[facility]/dhs/acwnzb-sf-ccpcy/adults/health-care/mental-health/resources/cr therese-contacts.jsp National Crisis Information: National Suicide & Crisis Lifeline: Call 588 For online chat options, visit https://suicidepreventionSoPostline.org/chat/ Poison Control Center: Poison Control Center: Trans Lifeline: - Hotline for transgender people of all ages The Juan Project: - Hotline for LGBT youth For Non-Emergency Support: Fast Tracker: Mental Health & Substance Use Disorder Resources - https://www.fasttrackermn.org/ Again thank you for choosing [facility] and please let us know how [...] call your pharmacy. You can also call [facility]'s Behavioral Access at , Saturday to [...] your health care provider. Copyright ?? 2021 [facility] [place] [employer] [facility]. All rights reserved. Match [id number] - 05/31. documented in this encounter Progress [...] Malcolm CNP Therapist: none currently The [facility] psychiatry providers act as a specialty service for Primary Care Providers in the [facility] who seek to optimize medications for unstable patients. Once medications have been optimized, [facility] providers discharge the patient back to the referring Primary Care Provider for ongoing medication management. This type of system allows [facility] to serve a high volume of patients. Patient Identification: Patient is a 38 year old, in a relationship or White or female who presents for return visit with ok. Patient prefers to be called: Melisa. 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 RECORDS AVAILABLE FOR REVIEW: EHR records through Gl[employer] . Interim History: I last saw Skylar [...] appetite and weight gain from clonidine The [place] Prescription Monitoring Program has been [...] Patient is followed by Azra Shine NP, SHOOTING GALLERY OPERATOR for ongoing prescription of a controlled [...] or call after hours crisis line at [phone] or [phone]. [place] Crisis Text Line. Text [place] to 405469 or Suicide LifeLine Chat: suicidepreventionSoPostline.org/chat Schedule an appointment with me in 4 weeks or sooner as needed. Call [facility] [phone] to schedule. Follow up with primary care provider as planned or for acute medical concerns. Call the psychiatric nurse line with medication questions or concerns at [phone]. Materials and Systems Researchhart may be used to communicate with your provider, but this is not intended to be used for emergencies. Patient Education: Medication side effects and alternatives reviewed. Health promotion activities recommended and reviewed today. All questions addressed. Education and counseling completed regarding risks and benefitsof medications and psychotherapy options. Consent provided by patient/guardian Call the psychiatric nurse line with medication questions or concerns at [phone]. MyChart may be used to communicate with your provider, but this is not intended to be used for emergencies. SEROTONIN SYNDROME: Discussed risks of Serotonin syndrome (ie, serotonin toxicity) which is a potentially life-threatening condition associated with increased serotonergic activity in the central nervous system (RIM ROLLER SETTER). It is seen with therapeutic medication use, [...] keep place and cannot replace lost scripts. CORD:USE Cord Blood Bank.gov is information for patients. It is run [...] is advised that I will not prescribe group home/high dose benzodiazepine due to risk in addition [...] pressure. Community Resources: National Suicide Prevention Lifeline: 132.633.6704 (TTY: 684.452.2907). Call anytime for help. (www.suicidepreventionlifeline.org) National [place] on Mental Illness (www.jason.org): 966.508.1459 or 076-347-4605. Mental Health Association (www.mentalhealth.org): 706.381.5415 or 602-439-5894. [place] Crisis Text Line: Text [place] to 923891 Suicide LifeLine Chat: suicideprePakSenseline.org/chat Administrative Billing: Level of Medical Decision Making: - At least 1 chronic problem that is not stable - Engaged in prescription drug management during visit (discussed any medication benefits, side effects, alternatives, etc.) Patient Status: CCPS MD/DO/SHOOTING GALLERY OPERATOR/PA providers offer care a specialty service for Primary Care Providers in the [facility] that seek to optimize psychotropic medications for unstable patients. Once medications havebeen optimized, our providers discharge the patient back to the referring Primary Care Provider forongoing medication management. This type of system allows our providers to serve a high volume of patients. Patient will continue to be seen for ongoing consultation and stabilization. Signed: Mattie Tellez, MSN, CUSTOMER COMPLAINT SERVICE SUPERVISOR, PMHNP- Collaborative Care Psychiatry Service ([facility]) [facility] Chart documentation done in part with [employer] Voice Recognition software. Although reviewed after completion, [...] 01/27/2024 8:00 AM CDT Current patient location: [address] [place] [address] Is the patient currently in the state of [place]? YES Visit mode:VIDEO If the visit is dropped, the patient can be reconnected by: VIDEO VISIT: Text to cell phone: Telephone Information: Will anyone else be joining the visit? NO (If patient encounters technical issues they should call [phone] :[phone]) How would you like to obtain your [...] documented as of this encounter Care Teams Chemistry Quality Control Technician Relationship Specialty Start Date End Date Shannan Malcolm CNP [address] [place] [address] [phone] PCP - General Nurse Practitioner - Family 07/09/22 Shannan Malcolm CNP [address] [place] [address] 359002 Assigned PCP 04/07/22 Mattie Tellez APRN CNP [address] [place] [address] [phone] Assigned Behavioral Health Provider 09/22/22 documented as of this encounter
--- OUTSIDE RECORDS SUMMARY | 2024-04-14 14:40 | XMS_ITS | Encounter Summary ---
Author Organization [place] Address [address] [facility] [place] [address] Care Team Providers Care Hat Copyist Name Role Phone Shannan Malcolm CNP Unavailable [phone] Shannan Malcolm CNP Primary Care Provider [phone] Mattie Tellez APRN DIRECTIONAL SURVEY DRAFTER Unavailable [phone] Reason for Visit * Reason Comments RECHECK Encounter Details Date Type Department Care Team (Latest Contact Info) Description 04/06/2024 7:30 AM CDT Virtual Visit [facility] [address] [place] [address] Lexi Farnsworth, [facility] [address] [place], [place] [phone] Generalized anxiety disorder with panic attacks (Primary [...] on file Legal Sex Female 3:13 AM PACKAGE PICK UP Gender Identity Female 02/08/2022 7:17 AM CDT Sexual Orientation Choose not to disclose 2021 7:17 AM CDT documented as of this encounter Progress Notes * Lexi Farnsworth, MASH FILTER PRESS OPERATOR - 04/06/2024 7:30 AM CDT Images from the original note were not included. [facility] [place] PATIENT'S NAME: Skylar Santillan PREFERRED NAME: Melisa PRONOUNS: : 1985 AD[address]ESS: [address] [place] [address]. NUMBER: [id number] DATE OF SERVICE: 04/06/24 START TIME: 7:37 am END TIME: 8:00 am PREFERRED PHONE: [phone] May we leave a program related message: [...] Location): Patient's home Distant Site (Provider Location): [facility] M[facility] Consent: The patient/guardian has verbally consented to: the potential risks and benefits of telemedicine (video visit) versus in person care; bill my insurance or make self-payment for services provided; and responsibility for payment of non-covered services. Patient would like the video invitation sent by: My Chart Mode of Communication: Video Conference via [facility] Distant Location (Provider): On-site As the [...] they grew up in (Patient-Rptd) other (Patient-Rptd) [facility]. They were raised by (Patient-Rptd) biological [...] identified their preferred language to be (Patient-Rptd) [place]. Patient reported they does not need the assistance of an shipper or other support involved in therapy. Patient [...] to Review Flowsheets to unlock data. Patient-reported [place] Suicide Severity Rating Scale (Lifetime/Recent) 04/06/2024 7:55 AM [place] Suicide Severity Rating (Lifetime/Recent) Q1 Wish to [...] day treatment; psychiatry . Psychiatric Hospitalizations: (Patient-Rptd) [facility]; [facility] when (Patient-Rptd) many times over the years, [...] with PCP. . The patient has a [facility] Primary Care Provider, who is named Shannan [...] of meaning; positive social skills; access to [facility] of clinical interventions and pets Review of [...] is not confined to features of an [place] I disorder. E. The anxiety, worry, or [...] - see above . 4. Resources/Service Plan: Integrated Circuit Fabricator services are not indicated. Modifications to assist [...] Safety Plan: Provider Name/ Credentials: Lexi Farnsworth [facility] April 06, 2024 Answers submitted by [...] documented as of this encounter Care Teams Hat Copyist Relationship Specialty Start Date End Date Shannan Malcolm CNP [address] [place] [address] 085112 PCP - General Nurse Practitioner - Family 07/09/22 Shannan Malcolm CNP [address] [place] [address] 524182 Assigned PCP 04/07/22 Mattie Tellez APRN DIRECTIONAL SURVEY DRAFTER [address] [place] [address] 06678 Assigned Behavioral Health Provider 09/22/22 documented as of this encounter
--- OUTSIDE RECORDS SUMMARY | 2024-04-14 14:40 | XMS_ITS | Encounter Summary ---
Author Organization [place] Address [facility] [place] [address] Care Team Providers Care Machine Repairman Name Role Phone Shannan Malcolm CNP Unavailable [phone] Shannan Malcolm CNP Primary Care Provider [phone] Mattie Tellez APRN, CNP Unavailable [phone] Reason for Referral * Mental Health Outpatient (Routine: Next available opening) - Pending Review Specialty Diagnoses / Procedures Referred By Contac t Referred To Contact Diagnoses Generalized anxiety disorder with panic attacks PTSD (post-traumatic stress disorder) MDD (major depressive disorder), recurrent episode, moderate (H) Attention deficit hyperactivity disorder (ADHD), predominantly inattentive type Alcohol use disorder in remission Mattie Tellez, ROSEMARIE SOLUTIONS DEVELOPMENT ANALYST [address] [place] [address] Phone: tel: fax: Referral ID Status Reason Start Date Expiration Date V isits Requested Visits Authorized [id number] Pending Review 02/24/2024 02/23/2025 1 1 Question Answer Services: Intensive Programmatic Care Program: DBT Scheduling Instructions: [facility] will call you to coordinate your care as prescribed by your provider. If you don't hear from a community relations representative within 2 business days, please call [phone]. Only select yes if the patient has [...] plan with any benefit or coverage questions. [facility] will call you to coordinate your care as prescribed by your provider. If you don't hear from a community relations representative within 2 business days, please call [phone]. Reason for Visit * Reason Comments RECHECK Encounter Details Date Type Department Care Team (Latest Contact Info) Description 02/24/2024 10:30 AM CDT Virtual Visit [facility] & [facility] [address] [place] [address] [address] [place] [address] Mattie Tellez APRN SOLUTIONS DEVELOPMENT ANALYST [address] [place] [address] Generalized anxiety disorder with [...] on file Legal Sex Female 3:13 AM FIELD REVIEWER Gender Identity Female 02/08/2022 7:17 AM CDT [...] * Patient Instructions* Uday Tellezire Matthew, ROSEMARIE SOLUTIONS DEVELOPMENT ANALYST - 02/24/2024 10:30 AM CDT For crisis resources, please see the information at the end of this document Thank you for coming to the [facility] [place] [...] Consults / Referrals: Referral placed for DBT. [facility] will call you to coordinate your care as prescribed by your provider. If you don't hear from a community relations representative within 2 business days, please call [phone]. Follow-up: Schedule an appointment with me and Behavioral Health Torch Straightener in 4 weeks or sooner as needed. Call [facility] at [phone] to schedule. Follow up with primary care provider as planned or for acute medical concerns. Call the psychiatric nurse line with medication questions or concerns at [phone]. Senath Pty Ltdhart may be used to communicate with your [...] cardiovascular risks, increased blood pressure. Financial Assistance [phone] [facility] [phone] Central Billing Office, [facility]: [phone] [facility] [phone] Medical Records [phone] [facility] Patient Bill of Rights [email or web address] MENTAL HEALTH CRISIS RESOURCES: For a emergency help, please call 911 or go to the nearest Emergency Department. Emergency Walk-In Options: EmPATH Unit @ [facility] ([place]): [phone] - Specialized mental health emergency area designed to be calming [facility] ([place]): [phone] [facility] ([place]): [phone] [facility]): [phone] County Crisis Information: [place]: [phone] [place]: [phone] Richy ([place]) - Adult: [phone] Child: [phone] Jeff - Adult: [phone] Child: [phone] [place]: [phone] List of all [facility] resources: https://ne.gov/dhs/fycggi-ro-qfqxm/adults/health-care/mental-health/resources/cr therese-contacts.jsp National Crisis Information: National Suicide & Crisis Lifeline: Call 988 For online chat options, visit https://suicidepreventionlifeline.org/chat/ Poison Control Center: Poison Control Center: Trans Lifeline: - Hotline for transgender people of all ages The Juan Project: - Hotline for LGBT youth For Non-Emergency Support: Fast Tracker: Mental Health & Substance Use Disorder Resources - https://www.MTM TechnologiesckChorusn.org/ Again thank you for choosing [facility] and please let us know how [...] someone else's life is in danger. Call 418 anytime to reach the national Suicide and Crisis hotline. Medicine refills To refill your medicine, call your pharmacy. You can also call [facility]'s Behavioral Access at , Saturday to [...] your health care provider. Copyright ?? 2021 [employer]. All rights reserved. Text A Cab [id number] - 05/31. documented in this encounter Progress [...] Shannan Malcolm CNP Therapist: none currently The [facility] psychiatry providers act as a specialty service for Primary Care Providers in the [facility] who seek to optimize medications for unstable patients. Once medications have been optimized, [facility] providers discharge the patient back to the referring Primary Care Provider for ongoing medication management. This type of system allows [facility] to serve a high volume of patients. Patient Identification: Patient is a 38 year old, in a relationship or White or female who presents for return visit with me. Patient prefers to be called: Melisa. Patient is currently employed part time Patient attended the session alone. RECORDS AVAILABLE FOR REVIEW: EHR records through [employer] . Interim History: I last saw Skylar [...] clonidine: drowsiness, slowed, monitoring for dizziness The [place] Prescription Monitoring Program has been reviewed and there are no concerns about diversionary activity for controlled substances at this time. 02/17/2024 02/17/2024 3 Dexmethylphenidate Er 10 Mg Cp 30.00 30 Cl Hil [id number] [place] ([id number]) 0/0 Medicaid [place] 02/07/2024 01/27/2024 3 Dexmethylphenidate 5 Mg Tab 30.00 30 Cl Hil [id number] [place] ([id number]) [place] 01/27/2024 01/27/2024 3 Lorazepam 0.5 Mg Tablet 60.00 30 Cl Hil [id number] [place] ([id number]) 0/0 1.00 LME Medicaid [place] Psychiatric ROS: [...] Patient is followed by Azra Shine NP, TREAD CUTTER for ongoing prescription of a controlled medicine. [...] Follow-up with this provider + Behavioral Health Torch Straightener in 1 month. Additionally sending referral for [...] primary care provider. Referral placed for DBT. [facility] will call you to coordinate your care as prescribed by your provider. If you don't hear from a community relations representative within 2 business days, please call [phone]. Safety plan reviewed. To the Emergency Department as needed or call after hours crisis line at [phone] or [phone]. [place] Crisis Text Line. Text [place] to 152981 or Suicide LifeLine Chat: suicidepreventionReach Prosline.org/chat Schedule an appointment with nc and Behavioral Health Torch Straightener in 4 weeks or sooner as needed. Call [facility] at [phone] to schedule. Follow up with primary care provider as planned or for acute medical concerns. Call the psychiatric nurse line with medication questions or concerns at [phone]. [employer] may be used to communicate with your provider, but this is not intended to be used for emergencies. Patient Education: Medication side effects and alternatives reviewed. Health promotion activities recommended and reviewed today. All questions addressed. Education and counseling completed regarding risks and benefitsof medications and psychotherapy options. Consent provided by patient/guardian Call the psychiatric nurse line with medication questions or concerns at [phone]. [employer] may be used to communicate with your [...] keep place and cannot replace lost scripts. MedlineBandwidth.gov is information for patients. It is run [...] pressure. Community Resources: National Suicide Prevention Lifeline: 877.210.9800 (TTY: 420.763.3786). Call anytime for help. (www.suicidepreventionlifeline.org) National [place] on Mental Illness (www.jason.org): 611.581.1636 or 122-486-1734. Mental Health Association (www.mentalhealth.org): 293.505.7170 or 330-287-8421. [place] Crisis Text Line: Text [place] to 621821 Suicide LifeLine Chat: suicidepreDigicompanionline.org/chat Administrative Billing: Level of Medical Decision Making: - At least 1 chronic problem that is not stable - Engaged in prescription drug management during visit (discussed any medication benefits, side effects, alternatives, etc.) Patient Status: CCPS MD/DO/TREAD CUTTER/PA providers offer care a specialty service for Primary Care Providers in the [facility] that seek to optimize psychotropic medications for unstable patients. Once medications havebeen optimized, our providers discharge the patient back to the referring Primary Care Provider forongoing medication management. This type of system allows our providers to serve a high volume of patients. Patient will continue to be seen for ongoing consultation and stabilization. Signed: Mattie Tellez, MSN, DIRECTOR OF MUSIC THERAPY, PMHNP- Collaborative Care Psychiatry Service (CCPS) [facility] Chart documentation done in part with Tomveyi Bidamon Voice Recognition software. Although reviewed after completion, some word and grammatical errors may remain. documented in this encounter Nursing Notes * GLORIA STEIN - 02/24/2024 10:30 AM CDT Is the patient currently in the state of [place]? YES Current patient location: [address] [place] [address] Visit mode:VIDEO If the visit is dropped, the patient can be reconnected by: VIDEO VISIT: Text to cell phone: Telephone Information: Will anyone else be joining the visit? No (If patient encounters technical issues they should call [phone]) How would you like to obtain your AVS? MyChart Are changes needed to the allergy or medication list? No Are refills needed on medications prescribed by this physician? YES Rooming Documentation: Questionnaire(s) completed. Reason for visit: RECHECK JARROD Steward documented in this encounter Plan of Treatment Scheduled Referrals Name Type Priority Associated Diagnoses Orde r Schedule Adult Mental Health [facility] Referral Referral Routine: Next available opening [...] documented as of this encounter Care Teams Machine Repairman Relationship Specialty Start Date End Date Shannan Malcolm CNP [address] [place] [address] PCP - General Nurse Practitioner - Family 07/09/22 Shannan Malcolm CNP [address] [place] [address] [id number] Assigned PCP 04/07/22 Mattie Tellez APRN SOLUTIONS DEVELOPMENT ANALYST [address] [place] [address] Assigned Behavioral Health Provider 09/22/22 documented as of this encounter
--- OUTSIDE RECORDS SUMMARY | 2024-04-14 14:40 | XMS_ITS | Encounter Summary ---
Author Organization [facility] Address [address] [place] [address] Care Team Providers Care Activity Leader Name Role Phone Shannan Malcolm WIND FARM ENGINEER Unavailable [phone] Shannan Malcolm CNP Primary Care Provider Mattie Tellez APRN WIND FARM ENGINEER Unavailable [phone] Reason for Visit * Reason Comments Covid Concern Encounter Details Date Type Department Care Team (Late st Contact Info) Description 03/02/2024 1:00 PM CDT Virtual Visit [address] [address] Shannan Malcolm, WIND FARM ENGINEER [address] [place] [address] [phone] Infection due to 2019 novel coronavirus (Primary [...] on file Legal Sex Female 3:13 AM GROUP LEADER SEMICONDUCTOR TESTING Gender Identity Female 02/08/2022 7:17 AM CDT Sexual Orientation Choose not to disclose 2021 7:17 AM CDT documented as of this encounter Progress Notes * Shannan Malcolm, WIND FARM ENGINEER - 03/02/2024 1:00 PM CDT Melisa is a 38 year old who is being evaluated via a billable video visit. How would you like to obtain your AVS? MyChart If the video visit is dropped, the invitation should be resent by: Text to cell phone: [phone] Will anyone else be joining your video [...] by a primary care provider at an [facility] or [facility] Primary Care Clinic within the past [...] documented as of this encounter Care Teams Activity Leader Relationship Specialty Start Date End Date Shannan Malcolm CNP [address] [place], [place] 151092 PCP - General Nurse Practitioner - Family 07/09/22 Shannan Malcolm CNP [address] [place] [address] [id number] Assigned PCP 04/07/22 Mattie Tellez APRN CNP [address] [place] [address] [id number] Assigned Behavioral Health Provider 09/22/22 documented as of this encounter
--- OUTSIDE RECORDS SUMMARY | 2024-04-14 14:40 | XMS_ITS | Encounter Summary ---
Author Organization [facility] Address [address] [place] [address] Care Team Providers Care Sports Lawyer Name Role Phone Shannan Malcolm CNP Unavailable [phone] Shannan Malcolm CNP Primary Care Provider [phone] Mattie Tellez APRN HYDROELECTRIC MACHINERY MECHANIC Unavailable [phone] Reason for Visit * Reason Onset Date Comments Refill Request 03/09/2024 Focalin 5 mg Encounter Details Date Type Department Care Team (Late st Contact Info) Description 03/09/2024 MyC Refill [facility] Mental Health & [facility] [address] [place] [address] [address] [place] [address] Mattie Tellez APRN HYDROELECTRIC MACHINERY MECHANIC [address] [place] [address] Refill Request (Focalin 5 mg) [...] file Legal Sex Female 3:13 AM DIRECTOR CAREER SERVICES Gender Identity Female 02/08/2022 7:17 AM [...] No []Medication refilled per ???Medication Refill in Rhic Systems Safety Engineer?? policy. [x]Medication unable to be refilled by [...] refill? Yes Any Controlled Substance(s)? Yes [place] GRINDER SET UP OPERATOR INTERNAL checked? Yes was last sold on 02/07/24 for quantity of 30. Other controlled substance on [place] GRINDER SET UP OPERATOR INTERNAL?: Yes If yes, are any new medications? [...] Follow-up with this provider + Behavioral Health Credit Relationship Manager in 1 month. Additionally sending referral for [...] documented as of this encounter Care Teams Sports Lawyer Relationship Specialty Start Date End Date Shannan Malcolm CNP [address] [place] [address] PCP - General Nurse Practitioner - Family 07/09/22 Shannan Malcolm CNP [address] [place] [address] Assigned PCP 04/07/22 Mattie Tellez APRN HYDROELECTRIC MACHINERY MECHANIC [address] [place] [address] Assigned Behavioral Health Provider 09/22/22 documented as of this encounter
--- OUTSIDE RECORDS SUMMARY | 2024-04-14 14:40 | XMS_ITS | Encounter Summary ---
Author Organization [facility] Address [address] [place] [address] Care Team Providers Care Veterinary Attendant Name Role Phone Shannan Malcolm CNP Unavailable [phone] Shannan Malcolm CNP Primary Care Provider [phone] Mattie Tellez APRN AUTOMOTIVE TECHNOLOGY INSTRUCTOR Unavailable [phone] Reason for Visit * Reason Onset Date Comments Refill Request 03/16/2024 Encounter Details Date Type Department Care Team (Late st Contact Info) Description 03/16/2024 MyC Refill [facility] [address] [place] [address] Mattie Tellez, ROSEMARIE AUTOMOTIVE TECHNOLOGY INSTRUCTOR [address] [place] [address] Refill Request Social History Tobacco [...] on file Legal Sex Female 3:13 AM AUTO TUNE UP MECHANIC Gender Identity Female 02/08/2022 7:17 AM [...] No []Medication refilled per ???Medication Refill in Family Law Legal Assistant?? policy. [x]Medication unable to be refilled by [...] primary care provider. Referral placed for DBT. [facility] will call you to coordinate your care as prescribed by your provider. If you don't hear from a petroleum products sales representative within 2 business days, please call [phone]. Safety plan reviewed. To the Emergency Department as needed or call after hours crisis line at [phone] or [phone]. [place] Crisis Text Line. Text [place] to 411714 or Suicide LifeLine Chat: suicidepreventionlifeline.org/chat Schedule an appointment with ok and Behavioral Health Dry Charge Process Attendant in 4 weeks or sooner as needed. Call [facility] at [phone] to schedule. Follow up with primary care provider as planned or for acute medical concerns. Call the psychiatric nurse line with medication questions or concerns at [phone]. MyChart may be used to communicate with [...] documented as of this encounter Care Teams Veterinary Attendant Relationship Specialty Start Date End Date Shannan Malcolm CNP [facility] [place] [address] PCP - General Nurse Practitioner - Family 07/09/22 Shannan Malcolm CNP [address] [place], [place] 721742 Assigned PCP 04/07/22 Mattie Tellez APRN CNP [address] [place] [address] Assigned Behavioral Health Provider 09/22/22 documented as of this encounter
--- OUTSIDE RECORDS SUMMARY | 2024-04-14 14:40 | XMS_ITS | Encounter Summary ---
Author Organization [place] Address [address] [place] [address] Care Team Providers Care Fleece Tier Name Role Phone Shannan Malcolm CNP Unavailable [phone] Shannan Malcolm CNP Primary Care Provider [phone] Mattie Tellez APRN CLINICAL DATA PROGRAMMER Unavailable [phone] Reason for Visit * Reason Onset Date Comments Refill Request 01/23/2024 lorazepam (ATIVA N) 0.5 MG tablet Encounter Details Date Type Department Care Team (Late st Contact Info) Description 01/23/2024 MyC Refill [facility] [address] [address] [place] [address] Mattie Tellez, ROSEMARIE CLINICAL DATA PROGRAMMER [address] [place] [address] Refill Request (lorazepam (ATIVAN) 0.5 [...] on file Legal Sex Female 3:13 AM TARIFF COUNSEL Gender Identity Female 02/08/2022 7:17 AM CDT Sexual Orientation Choose not to disclose 2021 7:17 AM CDT documented as of this encounter Miscellaneous Notes * Telephone Encounter - Carlene Zavaleta RN - 01/24/2024 12:59 PM CDT RN called [facility] [id number] [address] at [phone] regarding when the patient picked up the [...] fill them tomorrow Saturday the Preferred pharmacy: [facility] - [id number] [address] -RN called the patient and she said she only has 3 tablets left of her lorazepam. She said she picked it up on 01/10/2024, but the KAPOK AND COTTON MACHINE OPERATOR says sold on 01/13/2024. The [...] No []Medication refilled per ???Medication Refill in Furnishings Conservator?? policy. [x]Medication unable to be refilled by [...] to review. Any Controlled Substance(s)? Yes [place] KAPOK AND COTTON MACHINE OPERATOR checked? Yes Lorazepam 0.5 mg tablet was last sold on 01/13/2024 for quantity of 30. Other controlled substance on [place] KAPOK AND COTTON MACHINE OPERATOR?: Yes If yes, are any [...] for #28. Contact provider via phone or [employer] in 2 weeks for diazepam refill (or [...] or call after hours crisis line at [phone] or [phone]. [place] Crisis Text Line. Text [place] to 236503 or Suicide LifeLine Chat: suicidepreventionlifeline.org/chat Schedule an appointment with me in 4 weeks or sooner as needed. Call [facility] [phone] to schedule. Follow up with primary care provider as planned or for acute medical concerns. Call the psychiatric nurse line with medication questions or concerns at [phone]. Klip may be used to communicate with your [...] documented as of this encounter Care Teams Fleece Tier Relationship Specialty Start Date End Date Shannan Malcolm CNP [address] [place] [address] [phone] PCP - General Nurse Practitioner - Family 07/09/22 Shannan Malcolm CNP [address] [place] [address] Assigned PCP 04/07/22 Mattie Tellez APRN CLINICAL DATA PROGRAMMER [address] [place], [place] 214905 Assigned Behavioral Health Provider 09/22/22 documented as of this encounter
--- OUTSIDE RECORDS SUMMARY | 2024-04-14 14:40 | XMS_ITS | Encounter Summary ---
Author Organization [place] Address [facility] [place] [address] Care Team Providers Care Alarm Investigator Name Role Phone Shannan Malcolm CNP Unavailable [phone] Shannan Malcolm CNP Primary Care Provider [phone] Mattie Tellez APRN FAST FOOD SUPERVISOR Unavailable [phone] Encounter Details Date Type Department Care Team (Late st Contact Info) Description 01/10/2024 Orders Only [facility] Mental Health & [facility] [address] [place] [address] Mattie Tellez APRN FAST FOOD SUPERVISOR [address] [facility] [address] [place], [place] [phone] CATHY (generalized anxiety disorder) Social History Tobacco [...] on file Legal Sex Female 3:13 AM BARREL PAINTER Gender Identity Female 02/08/2022 7:17 AM [...] documented as of this encounter Care Teams Alarm Investigator Relationship Specialty Start Date End Date Shannan Malcolm CNP [address] [place] [address] 434112 PCP - General Nurse Practitioner - Family 07/09/22 Shannan Malcolm CNP [address] [place] [address] [id number] Assigned PCP 04/07/22 Mattie Tellez APRN CNP [address] [place] [address] [id number] Assigned Behavioral Health Provider 09/22/22 documented as of this encounter
--- OUTSIDE RECORDS SUMMARY | 2024-04-14 14:40 | XMS_ITS | Encounter Summary ---
Author Organization [place] Address [address] [place] [address] Care Team Providers Care Relay Motorman Name Role Phone Shannan Malcolm CNP Unavailable [phone] Shannan Malcolm CNP Primary Care Provider + [phone] Mattie Tellez APRN CRITICAL POWER TECHNICIAN Unavailable [phone] Reason for Visit * Reason Onset Date Comments Refill Request 02/17/2024 dexmethylphenida te (FOCALIN XR) 5 MG 24 hr capsule Encounter Details Date Type Department Care Team (Late st Contact Info) Description 02/17/2024 MyC Refill [facility] [address] [place] [address] Mattie Tellez APRN CRITICAL POWER TECHNICIAN [address] [place] [address] Refill Request (dexmethylphenidate (FOCALI... 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 SHIP'S CAPTAIN Gender Identity Female 02/08/2022 7:17 AM CDT [...] No []Medication refilled per ???Medication Refill in [facility] Eng[facility]ver?? policy. [x]Medication unable to be refilled by [...] []Scope of Practice: refill request processed by SUGAR CONTROLLER/MA []Other: Medication(s) requested: - dexmethylphenidate (FOCALIN XR) 5 MG 24 hr capsule Date last ordered: 01/19/2024 Qty: 30 Refills: 0 Take 1 capsule (5 mg) by mouth every morning With Focalin XR 10 mg for total dose of 15 mg. - Appropriate for refill? Provider to review. Controlled Substance Any Controlled Substance(s)? Yes [place] OPENER TENDER checked? Yes Dexmethylphenidate ER 5 mg cap was last sold on 01/23/2024 for quantity of 30. Other controlled substance on [place] OPENER TENDER?: Yes Requested medication(s) verified as identical [...] or call after hours crisis line at [phone] or [phone]. [place] Crisis Text Line. Text [place] to 058062 or Suicide LifeLine Chat: suicidepreventionlifeline.org/chat Schedule an appointment with me in 4 weeks or sooner as needed. Call [facility] [phone] to schedule. Follow up with primary care provider as planned or for acute medical concerns. Call the psychiatric nurse line with medication questions or concerns at [phone]. MyChart may be used to communicate with [...] documented as of this encounter Care Teams Relay Motorman Relationship Specialty Start Date End Date Shannan Malcolm CNP [address] [place] [address]017 PCP - General Nurse Practitioner - Family 07/09/22 Shannan Malcolm CNP [address] [place] [address] 485[address] Assigned PCP 04/07/22 Mattie Tellez APRN CRITICAL POWER TECHNICIAN [address] [place] [address] Assigned Behavioral Health Provider 09/22/22 documented as of this encounter
--- OUTSIDE RECORDS SUMMARY | 2024-04-14 14:40 | XMS_ITS | Encounter Summary ---
Author Organization [place] Address [address] [place] [address] Care Team Providers Care Supervisor Intelligence Analyst Name Role Phone Shannan Malcolm CNP Unavailable [phone] Shannan Malcolm CNP Primary Care Provider + [phone] Mattie Tellez APRN RUBBER GOODS TESTER Unavailable [phone] Reason for Visit * Reason Onset Date Comments Medication not working 01/10/2024 Diazepam Encounter Details Date Type Department Care Team (Late st Contact Info) Description 01/10/2024 [facility] Medical Advice [facility] [address] [place] [address] Mattie Tellez APRN RUBBER GOODS TESTER [address] [place] [address] Medication not working (Diazepam ) [...] file Legal Sex Female 3:13 AM ASSISTANT CURATOR Gender Identity Female 02/08/2022 7:17 AM CDT Sexual Orientation Choose not to disclose 2021 7:17 AM CDT documented as of this encounter Miscellaneous Notes * Telephone Encounter - Josafat Rose - 01/10/2024 2:33 PM CDT Reason for Call: Medication refill: Do you use a [facility]? Yes Name of the pharmacy and phone number for the current request: N/A Name of the medication requested: Ativan Other request: Pt is requesting to be switch back to previous medication Can we leave a detailed message on this number? YES Phone number patient can be reached at: Home number on file [phone] (home) Best Time: Anytime Call taken on 01/10/2024 at 2:34 PM by Josafat Rose * Telephone Encounter - Nadira Ramos RN - 01/10/2024 2:33 PM CDT 1) Reviewed patient's [place] [employer] message. She reports that diazepam is not [...] as of this encounter Care Teams Supervisor Intelligence Analyst Relationship Specialty Start Date End Date Shannan Malcolm CNP [address] [place] [address] 554582 PCP - General Nurse Practitioner - Family 07/09/22 Shannan Malcolm CNP [address] [place] [address] Assigned PCP 04/07/22 Mattie Tellez APRN RUBBER GOODS TESTER [address] [place] [address] Assigned Behavioral Health Provider 09/22/22 documented as of this encounter
--- OUTSIDE RECORDS SUMMARY | 2024-04-14 14:40 | XMS_ITS | Encounter Summary ---
Author Organization [place] Address [facility] [place] [address] Care Team Providers Care Dermatology Physician Assistant Name Role Phone Shannan Malcolm CNP Unavailable [phone] Shannan Malcolm CNP Primary Care Provider + [phone] Mattie Tellez APRN AUTOMOBILE BODY REPAIRER HELPER Unavailable [phone] Encounter Details Date Type Department Care Team (Late st Contact Info) Description 11/13/2023 [facility] Medical Advice 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
--- OUTSIDE RECORDS SUMMARY | 2024-04-14 14:40 | XMS_ITS | Encounter Summary ---
Author Organization [place] Address [address] [place] [address] Care Team Providers Care Jewelry Mold Maker Name Role Phone Shannan Malcolm CNP Unavailable [phone] Shannan Malcolm CNP Primary Care Provider [phone] Mattie Tellez APRN PENAL OFFICER Unavailable [phone] Reason for Visit * Reason Onset Date Comments Refill Request 02/24/2024 Prozac 40 Encounter Details Date Type Department Care Team (Late st Contact Info) Description 02/24/[address] [address] Shannan Malcolm, PENAL OFFICER [address] [place] [address] Refill Request (Prozac 40) Social [...] file Legal Sex Female 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 [place], [place] [address] PCP - General Nurse Practitioner - Family 07/09/22 Shannan Malcolm CNP [address] [place] [address] 617582 Assigned PCP 04/07/22 Mattie Tellez APRN PENAL OFFICER [address] [place] [address] 91116 Assigned Behavioral Health Provider 09/22/22 documented as of this encounter
--- OUTSIDE RECORDS SUMMARY | 2024-04-14 14:40 | XMS_ITS | Encounter Summary ---
Author Organization [place] Address [address] [place] [address] Care Team Providers Care System Designer Name Role Phone Shannan Malcolm CNP Unavailable [phone] Shannan Malcolm CNP Primary Care Provider [phone] Mattie Tellez APRN WEAVING INSPECTOR Unavailable [phone] Reason for Visit * Reason Onset Date Comments Refill Request 03/29/2024 Encounter Details Date Type Department Care Team (Late st Contact Info) Description 03/29/2024 MyC Refill [address] [address] Shannan Malcolm, WEAVING INSPECTOR [address] [place], [place] [id number] Refill Request Social History Tobacco Use Types [...] on file Legal Sex Female 3:13 AM COLLEGE OR UNIVERSITY BUSINESS 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
--- OUTSIDE RECORDS SUMMARY | 2024-04-14 14:40 | XMS_ITS | Encounter Summary ---
Author Organization [place] Address [facility] [place] [address] Care Team Providers Care Artist Relationship Manager Name Role Phone Shannan Malcolm CNP Unavailable [phone] Shannan Malcolm CNP Primary Care Provider [phone] Mattie Tellez APRN LAP MACHINE OPERATOR Unavailable [phone] Reason for Visit * Reason Comments RECHECK Encounter Details Date Type Department Care Team (Latest Contact Info) Description 04/06/2024 8:00 AM CDT Virtual Visit [facility] [address] [place] [address] [address] [place] [address] Mattie Tellez, ROSEMARIE LAP MACHINE OPERATOR [address] [place], [place] [address] Generalized anxiety disorder with panic attacks (Primary [...] on file Legal Sex Female 3:13 AM LARD TUB WASHER Gender Identity Female 02/08/2022 7:17 AM CDT Sexual Orientation Choose not to disclose 2021 7:17 AM CDT documented as of this encounter Patient Instructions * Patient Instructions* Mattie Tellez, ROSEMARIE LAP MACHINE OPERATOR - 04/06/2024 8:00 AM CDT For crisis resources, please see the information at the end of this document Thank you for coming to the [facility]. TREATMENT PLAN: Medications: STOP clonidine 0.1 [...] Referrals: Referral placed for DBT. Viviane call [phone] to schedule. Follow-up: Schedule an appointment with ak and Behavioral Health Tow Car Driver in 4 weeks or sooner as needed. Call [facility] at [phone] to schedule. Follow up with primary care provider as planned or for acute medical concerns. Call the psychiatric nurse line with medication questions or concerns at [phone]. MyChart may be used to communicate with [...] patientis advised that I will not prescribe remote computer terminal operator/high dose benzodiazepine due to risk in addition [...] cardiovascular risks, increased blood pressure. Financial Assistance [phone] [facility] Billing [phone] Central Billing Office, [facility]: [phone] [facility]illing [phone] Medical Records [phone] [facility] Patient Bill of Rights [email or web address] MENTAL HEALTH CRISIS RESOURCES: For a emergency help, please call 911 or go to the nearest Emergency Department. Emergency Walk-In Options: EmPATH Unit @ [facility] ([place]): [phone] - Specialized mental health emergency area designed to be calming [facility] ([place]): [phone] [facility] ([place]): [phone] [facility]): [phone] [facility] Crisis Information: [place]: [phone] [place]: [phone] [place] ([place]) - Adult: [phone] Child: [phone] [place] - Adult: [phone] Child: [phone] [place]: [phone] List of all [facility] resources: https://ky.gov/dhs/oqhced-rp-rkvkb/adults/health-care/mental-health/resources/cr therese-contacts.jsp National Crisis Information: National Suicide & Crisis Lifeline: Call 988 For online chat options, visit https://suicidepreventionlifeline.org/chat/ Poison Control Center: Poison Control Center: Trans Lifeline: - Hotline for transgender people of all ages The Juan Project: - Hotline for LGBT youth For Non-Emergency Support: Fast Tracker: Mental Health & Substance Use Disorder Resources - https://www.Get Me ListedckAutoReflex.comn.org/ Again thank you for choosing [facility] and please let us know how [...] show if: Your appointment starts with a [facility], and you're more than 15 minutes late [...] call your pharmacy. You can also call [facility] at , Saturday to Saturday, [...] your health care provider. Copyright ?? 2021 [facility]. All rights reserved. [employer] [id number] - 05/31. documented in this encounter Progress Notes * Mattie Tellez APRN CNP - 04/06/2024 8:00 AM CDT Images from the original note were not included. Virtual Visit Details Type of service: Video Visit Video Start Time: 8:07 AM Video End Time: 8:35 AM Originating Location (pt. Location): Home Distant Location (provider location): On-site Platform used for Video Visit: [email or web address] PSYCHIATRIC MEDICATION FOLLOW UP APPT Name: Skylar [...] Shannan Malcolm CNP Therapist: none currently The [facility] psychiatry providers act as a specialty service for Primary Care Providers in the [facility] who seek to optimize medications for unstable patients. Once medications have been optimized, [facility] providers discharge the patient back to the referring Primary Care Provider for ongoing medication management. This type of system allows [facility] to serve a high volume of patients. Patient Identification: Patient is a 38 year old, in a relationship or White or female who presents for return visit with ak. Patient prefers to be called: Melisa. 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 RECORDS AVAILABLE FOR REVIEW: EHR records through [employer] and I have reviewed the assessment completedby ANDREI Leal, dated today . Interim History: Per [facility], ANDREI Leal, during today's team-based visit: MH [...] Pt will do butterfly tapping and mantras. 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 Additionally sending referral for [...] clonidine: drowsiness, slowed, monitoring for dizziness The [place] Prescription Monitoring Program has been reviewed and there are no concerns about diversionary activity for controlled substances at this time. 04/05/2024 04/05/2024 3 Hydrocodone-Acetamin 5-325 Mg 20.00 5 Ka Sofia [id number] Nor ([id number]) 0/0 20.00 MME Medicaid [place] 03/25/2024 03/17/2024 3 Clonazepam 0.5 Mg Tablet 15.00 30 Cl Hil [id number] [place] ([id number]) 0/0 0.50 LME [place] 03/24/2024 03/17/2024 3 Dexmethylphenidate Er 5 Mg Cap 30.00 30 Cl Hil [place] ([id number]) 0/0 [place] 03/18/2024 03/17/2024 3 Dexmethylphenidate Er 10 Mg Cp 30.00 30 Cl Hil [id number] [place] ([id number]) 0/0 [place] 03/09/2024 03/09/2024 3 Dexmethylphenidate 5 Mg Tab 30.00 30 [facility] [id number] [place] ([id number]) 0/0 [place] Psychiatric ROS: Skylar Santillan reports [...] Patient is followed by Azra Shine NP, AUTOMOTIVE ELECTRICIAN HELPER for ongoing prescription of a controlled medicine. [...] Follow-up with this provider and Behavioral Health Tow Car Driver in 1 month. Patient agreeableto plan. Medication [...] provider. Referral placed for DBT. Viviane call [phone] to schedule. Safety plan reviewed. To the Emergency Department as needed or call after hours crisis line at [phone] or [phone]. [place] Crisis Text Line. Text [place] to 827333 or Suicide LifeLine Chat: suicidepreventionlifeline.org/chat Schedule an appointment with ak and Behavioral Health Tow Car Driver in 4 weeks or sooner as needed. Call [facility] at [phone] to schedule. Follow up with primary care provider as planned or for acute medical concerns. Call the psychiatric nurse line with medication questions or concerns at [phone]. Stat Doctorshart may be used to communicate with your provider, but this is not intended to be used for emergencies. Patient Education: Medication side effects and alternatives reviewed. Health promotion activities recommended and reviewed today. All questions addressed. Education and counseling completed regarding risks and benefitsof medications and psychotherapy options. Consent provided by patient/guardian Call the psychiatric nurse line with medication questions or concerns at [phone]. MyChart may be used to communicate with your provider, but this is not intended to be used for emergencies. SEROTONIN SYNDROME: Discussed risks of Serotonin syndrome (ie, serotonin toxicity) which is a potentially life-threatening condition associated with increased serotonergic activity in the central nervous system (WELFARE ADMINISTRATOR). It is seen with therapeutic medication use, [...] keep place and cannot replace lost scripts. MedlineSensopia.gov is information for patients. It is run by the [place] [employer] and it contains information about all disorders, diseases and all medications. Patient to monitor for signs and symptoms of serotonin syndrome/serotonin toxicity (eg, hyperreflexia, clonus, hyperthermia, diaphoresis, tremor, autonomic instability, mental status changes) when these drugs are combined. Community Resources: National Suicide Prevention Lifeline: 510.543.1621 (TTY: 617.839.9881). Call anytime for help. (www.suicidepreventionlifeline.org) National [place] on Mental Illness (www.jason.org): 823.171.7243 or 865-240-8832. Mental Health Association (www.mentalhealth.org): 153.516.2209 or 359-932-9341. [place] Crisis Text Line: Text [place] to 87[address]35 Suicide LifeLine Chat: suicidepreAquirisline.org/chat Administrative Billing: Level of Medical Decision Making: - At least 1 chronic problem that is not stable - Engaged in prescription drug management during visit (discussed any medication benefits, side effects, alternatives, etc.) Patient Status: CCPS MD/DO/AUTOMOTIVE ELECTRICIAN HELPER/PA providers offer care a specialty service for Primary Care Providers in the [facility] that seek to optimize psychotropic medications for unstable patients. Once medications havebeen optimized, our providers discharge the patient back to the referring Primary Care Provider forongoing medication management. This type of system allows our providers to serve a high volume of patients. Patient will continue to be seen for ongoing consultation and stabilization. Signed: Mattie Tellez, MSN, MOISTURE METER OPERATOR, PMHNP- Collaborative Care Psychiatry Service ([facility]PS) [facility] Chart documentation done in part with [employer] Voice Recognition software. Although reviewed after completion, some word and grammatical errors may remain. documented in this encounter Nursing Notes * Nelda Montez - 04/06/2024 8:00 AM CDT Current patient location: [address] [place] [address] Is the patient currently in the state of [place]? YES Visit mode:VIDEO If the visit is dropped, the patient can be reconnected by: VIDEO VISIT: Text to cell phone: Telephone Information: Will anyone else be joining the visit? NO (If patient encounters technical issues they should call [phone]) Are changes needed to the allergy [...] documented as of this encounter Care Teams Artist Relationship Manager Relationship Specialty Start Date End Date Shannan Malcolm CNP [address] [place] [address] PCP - General Nurse Practitioner - Family 07/09/22 Shannan Malcolm CNP [address] [place] [address] Assigned PCP 04/07/22 Mattie Tellez APRN LAP MACHINE OPERATOR [address] [place] [address] Assigned Behavioral Health Provider 09/22/22 documented as of this encounter
--- OUTSIDE RECORDS SUMMARY | 2024-04-14 14:40 | XMS_ITS | Encounter Summary ---
Author Organization [place] Address [facility] [place] [address] Care Team Providers Care Lpn Rn Name Role Phone Shannan Malcolm CNP Unavailable [phone] Shannan Malcolm CNP Primary Care Provider + [phone] Mattie Tellez APRN COUNTY SURVEYOR Unavailable [phone] Encounter Details Date Type Department Care Team (Late st Contact Info) Description 04/14/2024 [facility] [address] [address] [place] [address] Mattie Tellez APRN COUNTY SURVEYOR [address] [facility] [address] [place], [place] [address] Social History Tobacco Use Types Packs/Day Years [...] on file Legal Sex Female 3:13 AM TOW MATE Gender Identity Female 02/08/2022 7:17 AM CDT Sexual Orientation Choose not to disclose 2021 7:17 AM CDT documented as of this encounter Plan of Treatment Not on file documented as of this encounter Visit Diagnoses Not on filedocumented in this encounter Additional Health Concerns Assessment Noted Time PHQ-9 Depression Total Score: 14 024 5:12 PM CDT documented as of this encounter Care Teams Lpn Rn Relationship Specialty Start Date End Date Shannan Malcolm CNP [address] [place] [address] 728362 PCP - General Nurse Practitioner - Family 07/09/22 Shannan Malcolm CNP [address] [place] [address] [id number] Assigned PCP 04/07/22 Mattie Tellez APRN CNP [address] [place] [address]907 Assigned Behavioral Health Provider 09/22/22 documented as of this encounter
--- OUTSIDE RECORDS SUMMARY | 2024-04-14 14:40 | XMS_ITS | Encounter Summary ---
Author Organization [place] Address [facility] [place] [address] Care Team Providers Care Correspondence Specialist Name Role Phone Shannan Malcolm CNP Unavailable [phone] Shannan Malcolm CNP Primary Care Provider + [phone] Mattie Tellez APRN PAYMENT ANALYST Unavailable [phone] Encounter Details Date Type Department Care Team (Late st Contact Info) Description 03/25/2024 [facility] Advice [facility] [address] [address] [place] [address] Mattie Tellez APRN PAYMENT ANALYST [address] [facility] [place], [place] [address] Social History Tobacco Use Types Packs/Day Years [...] on file Legal Sex Female 3:13 AM BOTTOM PRESSER Gender Identity Female 02/08/2022 7:17 AM CDT [...] documented as of this encounter Care Teams Correspondence Specialist Relationship Specialty Start Date End Date Shannan Malcolm CNP [address] [place] [address] PCP - General Nurse Practitioner - Family 07/09/22 Shannan Malcolm CNP [address] [place] [address]151 Assigned PCP 04/07/22 Mattie Tellez APRN PAYMENT ANALYST [address] [place] [address] 22683 Assigned Behavioral Health Provider 09/22/22 documented as of this encounter
--- OUTSIDE RECORDS SUMMARY | 2024-04-14 14:40 | XMS_ITS | Encounter Summary ---
Author Organization [place] Address [address] [place] [address] Care Team Providers Care Windows Mobile Developer Name Role Phone Shannan Malcolm CNP Unavailable [phone] Shannan Malcolm CNP Primary Care Provider + [phone] Mattie Tellez APRN HAM DOCTOR Unavailable [phone] Reason for Visit * Reason Onset Date Comments Medication Question 12/26/2023 Encounter Details Date Type Department Care Team (Late st Contact Info) Description 12/26/2023 MyC Medical Advice [facility] [address] [place] [address] Mattie Tellez APRN HAM DOCTOR [address] [place] [address] Medication Question Social History Tobacco [...] on file Legal Sex Female 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
--- OUTSIDE RECORDS SUMMARY | 2024-04-14 14:40 | XMS_ITS | Encounter Summary ---
Author Organization [place] Address [address] [place] [address] Care Team Providers Care Braille Transcriber Name Role Phone Shannan Malcolm CNP Unavailable [phone] Shannan Malcolm CNP Primary Care Provider + [phone] Mattie Tellez APRN CABLE LAYER Unavailable [phone] Reason for Visit * Reason Onset Date Comments Medication Request 12/01/2023 Increase dexm ethylphenidate (FOCALIN XR) Encounter Details Date Type Department Care Team (Late st Contact Info) Description 12/01/2023 MyC Medical Advice [facility] [address] [place] [address] [address] [place] [address] Mattie Tellez APRN CABLE LAYER 500 [place] [address] Medication Request (Increase dexmethylphen... 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 MRI SPECIAL PROCEDURES TECHNOLOGIST Gender Identity Female 02/08/2022 7:17 AM CDT [...] documented as of this encounter Care Teams Braille Transcriber Relationship Specialty Start Date End Date Shannan Malcolm CNP [address] [place] [address] 940142 PCP - General Nurse Practitioner - Family 07/09/22 Shannan Malcolm CNP [address] [place] [address] 01806 Assigned PCP 04/07/22 Mattie Tellez APRN CABLE LAYER [address] [place] [address] 84137 Assigned Behavioral Health Provider 09/22/22 documented as of this encounter
--- OUTSIDE RECORDS SUMMARY | 2024-04-14 14:40 | XMS_ITS | Encounter Summary ---
Author Organization [place] Address [address] [place] [address] 85898 Care Team Providers Care Fur Machine Operator Name Role Phone Shannan Malcolm CNP Unavailable [phone] Shannan Malcolm CNP Primary Care Provider + [phone] Mattie Tellez APRN CARE MANAGEMENT SPECIALIST Unavailable [phone] Reason for Visit * Reason Onset Date Comments Medication Request 03/14/2024 Change anti-a nxiety medication Encounter Details Date Type Department Care Team (Late st Contact Info) Description 03/14/2024 [facility] Medical Advice [facility] Mental Health & [facility] [address] [place] [address] [address] [place] [address] Mattie Tellez APRN CARE MANAGEMENT SPECIALIST 500 [place] [address] Medication Request (Change anti-anxiety me... [...] on file Legal Sex Female 3:13 AM ADJUNCT FACULTY Gender Identity Female 02/08/2022 7:17 AM CDT Sexual Orientation Choose not to disclose 2021 7:17 AM CDT documented as of this encounter Miscellaneous Notes * Telephone Encounter - Lauren Esparza, RN - 03/16/2024 12:08 PM CDT Images from the original note were not included. Per [place] INDUSTRIAL ELECTRICAL TECHNICIAN, LORazepam (ATIVAN) 0.5 MG tablet was last purchased on 02/25/24. Lauren Esparza RN on 03/16/2024 at 12:11 PM documented in this encounter Plan of Treatment Not on file documented as of this encounter Visit Diagnoses Not on filedocumented in this encounter Additional Health Concerns Assessment Noted Time PHQ-9 Depression Total Score: 9 03/02/20 8:53 AM CDT documented as of this encounter Care Teams Fur Machine Operator Relationship Specialty Start Date End Date Shannan Malcolm CNP [address] [place] [address] 43651 PCP - General Nurse Practitioner - Family 07/09/22 Shannan Malcolm CNP [address] [place] [address] 60169 Assigned PCP 04/07/22 Mattie Tellez APRN CARE MANAGEMENT SPECIALIST [address] [place] [address] 43090 Assigned Behavioral Health Provider 09/22/22 documented as of this encounter
--- OUTSIDE RECORDS SUMMARY | 2024-04-14 14:40 | XMS_ITS | Encounter Summary ---
Author Organization [place] Address [facility] [place] [address] Care Team Providers Care District Manager Primary Care Sales Name Role Phone Shannan Malcolm CNP Unavailable [phone] Shannan Malcolm CNP Primary Care Provider + [phone] Mattie Tellez APRN POWER REACTOR SUPERVISOR Unavailable [phone] Encounter Details Date Type Department Care Team (Late st Contact Info) Description 01/17/2024 [facility] Medical Advice [facility] Mental Health & [facility] [address] [facility] [address] [place] [address] Mattie Tellez APRN POWER REACTOR SUPERVISOR 500 [facility] [place], [place] 6439[address] Social History Tobacco Use Types Packs/Day Years [...] on file Legal Sex Female 3:13 AM POLICY ADVISOR Gender Identity Female 02/08/2022 7:17 AM CDT Sexual Orientation Choose not to disclose 2021 7:17 AM CDT documented as of this encounter Miscellaneous Notes * Telephone Encounter - Yolanda Ahn RN - 01/17/2024 11:33 AM CDT Patient's pharmacy is closed on Saturday. She would like to pepper picker her Focalin XR 5 mg and 10 mg today. It is dated on 01/19/24 so pharmacy won't dispense it. She only has 2 days left. [place] TOOL TENDER last sold 12/20/23 for both. She would like it dated for today if possible. Yolanda Ahn RN on 01/17/2024 at 11:35 AM * Telephone Encounter - Chantel Kilpatrick - 01/17/2024 11:07 AM CDTSummary: rx request needs earlier date for pepper picker Reason for call: Medication If this is a refill request, has the caller requested the refill from the pharmacy already? Yes Will the patient be using a [facility]? Yes Name of the pharmacy and phone number for the current request: [facility] [phone] Name of the medication requested: focalin xr 5 and focalyn xr 10 Other request: has two left, today is day 28. Rx refill is dated for the when they are not open. Pt would like to pepper picker today. Phone number to reach patient: [...] as of this encounter Care Teams District Manager Primary Care Sales Relationship Specialty Start Date End Date Shannan Malcolm CNP [address] [place] [address] 01885 PCP - General Nurse Practitioner - Family 07/09/22 Shannan Malcolm CNP [address] [place] [address] 442252 Assigned PCP 04/07/22 Mattie Tellez APRN POWER REACTOR SUPERVISOR [address] [place] [address] 773605 Assigned Behavioral Health Provider 09/22/22 documented as of this encounter
--- OUTSIDE RECORDS SUMMARY | 2024-04-14 14:40 | XMS_ITS | Encounter Summary ---
Author Organization [place] Address [address] [place] [address] Care Team Providers Care Ota Name Role Phone Shannan Malcolm CNP Unavailable [phone] Shannan Malcolm CNP Primary Care Provider + [phone] Mattie Tellez APRN HANDICRAFTS TEACHER Unavailable [phone] Reason for Visit * Reason Onset Date Comments Refill Request 02/24/2024 Encounter Details Date Type Department Care Team (Late st Contact Info) Description 02/24/2024 MyC Refill [facility] Mental Health [facility] [address] [place] [address] Mattie Tellez, ROSEMARIE HANDICRAFTS TEACHER [address] [place] [address] Refill Request Social History Tobacco [...] on file Legal Sex Female 3:13 AM BIG DATA SOLUTIONS ARCHITECT Gender Identity Female 02/08/2022 7:17 AM CDT [...] documented as of this encounter Care Teams Ota Relationship Specialty Start Date End Date Shannan Malcolm CNP [address] [place] [address] 335172 PCP - General Nurse Practitioner - Family 07/09/22 Shannan Malcolm CNP [address] [place] [address] 12674 Assigned PCP 04/07/22 Mattie Tellez APRN HANDICRAFTS TEACHER [address] [place] [address] 45904 Assigned Behavioral Health Provider 09/22/22 documented as of this encounter
--- OUTSIDE RECORDS SUMMARY | 2024-04-14 14:41 | XMS_ITS | Encounter Summary ---
Author Organization [place] Address [address] [place] [address] Care Team Providers Care Photographic Enlarger Operator Name Role Phone Shannan Malcolm CNP Unavailable [phone] Nabeel Nolan MD Unavailable [phone] Shannan Malcolm PROGRAM DEVELOPMENT MANAGER Primary Care Provider [phone] Mattie Tellez APRN PROGRAM DEVELOPMENT MANAGER Unavailable [phone] Reason for Visit * Reason Comments Medication Refill Encounter Details Date Type Department Care Team (Late st Contact Info) Description 09/15/[address] [phone] Shannan Malcolm, PROGRAM DEVELOPMENT MANAGER [address] [place] [address] [id number] Medication Refill Social History Tobacco Use Types [...] on file Legal Sex Female 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 Gender Identity Female 02/08/2022 7:17 AM [...] documented as of this encounter Care Teams Photographic Enlarger Operator Relationship Specialty Start Date End Date Shannan Malcolm CNP [address] [place] [address] 05731 PCP - General Nurse Practitioner - Family 07/09/22 Shannan Malcolm CNP [address] [place] [address] 65024 Assigned PCP 04/07/22 Nabeel Nolan MD [address] [place] [address] 46604 Assigned Behavioral Health Provider 06/02/22 09/21/22 Mattie Tellez APRN PROGRAM DEVELOPMENT MANAGER [address] [place] [address] 82301 Assigned Behavioral Health Provider 09/22/22 documented as of this encounter
--- OUTSIDE RECORDS SUMMARY | 2024-04-14 14:41 | XMS_ITS | Encounter Summary ---
Author Organization [place] Address [facility] [place] [address] Care Team Providers Care Labeling Strategist Name Role Phone Shannan Malcolm WOVEN WOOD SHADE ASSEMBLER Unavailable [phone] Shannan Malcolm CNP Primary Care Provider + [phone] Mattie Tellez APRN WOVEN WOOD SHADE ASSEMBLER Unavailable [phone] Encounter Details Date Type Department Care Team ([facility] Contact Info) Description 04/11/2023 Telephone [facility] Behavioral Health Intake [address] [place] [phone] Generic, Behavioral Intake, Social History Tobacco Use [...] on file Legal Sex Female 3:13 AM SUPPORT ASSOCIATE Gender Identity Female 02/08/2022 7:17 AM CDT Sexual Orientation Choose not to disclose 2021 7:17 AM CDT documented as of this encounter Miscellaneous Notes * Telephone Encounter - Nadira Ramos RN - 04/12/2023 8:42 AM CDT Images from the original note were not included. Reviewed documentation from [facility] coordinator. Pharmacy won't cover 2, 10mg capsules [...] or call after hours crisis line at [phone] or [phone]. [place] Crisis Text Line. Text [place] to 472851 or Suicide LifeLine Chat: suicidepreventionlifeline.org/chat Schedule an appointment with me in 3 weeks or sooner as needed. Call [facility] [phone] to schedule. Follow up with primary care provider as planned or for acute medical concerns. Call the psychiatric nurse line with medication questions or concerns at [phone]. Hydrocapsulehart may be used to communicate with your [...] number to reach pharmacy: Other phone number: [phone] Best Time: MARIO Can we leave a detailed message on this number? Not Applicable Travel screening: Not Applicable documented in this encounter Plan of Treatment Not on file documented as of this encounter Visit Diagnoses Not on filedocumented in this encounter Additional Health Concerns Assessment Noted Time PHQ-9 Depression Total Score: 4 12/11/19 7:53 AM CDT documented as of this encounter Care Teams Labeling Strategist Relationship Specialty Start Date End Date Shannan Malcolm CNP [address] [place] [address] [id number] PCP - General Nurse Practitioner - Family 07/09/22 Shannan Malcolm CNP [address] [place] [address] 425862 Assigned PCP 04/07/22 Mattie Tellez APRN CNP [address] [place] [address] [phone] Assigned Behavioral Health Provider 09/22/22 documented as of this encounter
--- OUTSIDE RECORDS SUMMARY | 2024-04-14 14:41 | XMS_ITS | Encounter Summary ---
Author Organization [place] Address [facility] [place] [address] Care Team Providers Care Manager Reimbursement Name Role Phone Shannan Malcolm CNP Unavailable [phone] Shannan Malcolm CNP Primary Care Provider [phone] Mattie Tellez APRN BRIAR WOOD SORTER Unavailable [phone] Encounter Details Date Type Department Care Team (Late st Contact Info) Description 02/23/2023 [facility] Medical Advice [facility] [address] [address] [place] [address] Mattie Tellez APRN BRIAR WOOD SORTER 500 [facility] [place], [place] 907[address] Social History Tobacco Use Types Packs/Day Years [...] on file Legal Sex Female 3:13 AM BROTH MIXER Gender Identity Female 02/08/2022 7:17 AM CDT [...] as of this encounter Care Teams Manager Reimbursement Relationship Specialty Start Date End Date Shannan Malcolm CNP [address] [place] [address] 935372 PCP - General Nurse Practitioner - Family 07/09/22 Shannan Malcolm CNP [address] [place] [address] 998142 Assigned PCP 04/07/22 Mattie Tellez APRN CNP [address] [place] [address] 66839 Assigned Behavioral Health Provider 09/22/22 documented as of this encounter
--- OUTSIDE RECORDS SUMMARY | 2024-04-14 14:41 | XMS_ITS | Encounter Summary ---
Author Organization [place] Address [address] [place] [address] Care Team Providers Care Therapist Rrt Name Role Phone Shannan Malcolm VACUUM PAN TENDER Unavailable [phone] Nabeel Nolan MD Unavailable [phone] Sahnnan Malcolm VACUUM PAN TENDER Primary Care Provider Mattie Tellez APRN VACUUM PAN TENDER Unavailable [phone] Reason for Visit * Reason Onset Date Comments Refill Request 09/15/2022 Encounter Details Date Type Department Care Team (Late st Contact Info) Description 09/15/2022 MyC Refill [address] [phone] Shannan Malcolm, VACUUM PAN TENDER [address] [place] [address] [phone] Refill Request Social History Tobacco Use Types [...] file Legal Sex Female 3:13 AM CHEMICAL LABORATORY CHIEF Gender Identity Female 02/08/2022 7:17 AM [...] protocol Maria Antonia Vázquez RN, BSN [facility] Triage documented in this encounter Plan of Treatment Not on file documented as of this encounter Visit Diagnoses Diagnosis Anxiety Anxiety state, unspecified Panic attack Panic disorder without agoraphobia documented in this encounter Additional Health Concerns Assessment Noted Time PHQ-9 Depression Total Score: 25 023 7:10 AM CDT documented as of this encounter Care Teams Therapist Rrt Relationship Specialty Start Date End Date Shannan Malcolm CNP [address] [place] [address] 343302 PCP - General Nurse Practitioner - Family 07/09/22 Shannan Malcolm CNP [address] [place] [address] 57361 Assigned PCP 04/07/22 Nabeel Nolan MD [address] [place] [address] 33938 Assigned Behavioral Health Provider 06/02/22 09/21/22 Mattie Tellez APRN [facility] 500 [place] [address] Assigned Behavioral Health Provider 09/22/22 documented as of this encounter
--- OUTSIDE RECORDS SUMMARY | 2024-04-14 14:41 | XMS_ITS | Encounter Summary ---
Author Organization [place] Address [address] [place] [address] Care Team Providers Care Residential Gas Heat Technician Name Role Phone Shannan Malcolm CNP Unavailable [phone] Shannan Malcolm CNP Primary Care Provider + [phone] Mattie Tellez APRN MANAGER FREELANCE Unavailable [phone] Encounter Details Date Type Department Care Team (Late st Contact Info) Description 12/31/2022 MyC Medical Advice [facility] Mental Health & Addiction [facility] [address] [address] [place] [address] Mattie Tellez APRN MANAGER FREELANCE 500 [facility] [address] [place], [place] [address] Social History Tobacco Use Types Packs/Day Years [...] file Legal Sex Female 3:13 AM CLOTH TESTER Gender Identity Female 02/08/2022 7:17 AM [...] APRN, PMHNP- [facility] Yolanda Ahn RN on 12/31/2022 at 2:55 PM documented in this encounter Plan of Treatment Not on file documented as of this encounter Visit Diagnoses Not on filedocumented in this encounter Additional Health Concerns Assessment Noted Time PHQ-9 Depression Total Score: 4 12/11/19 7:53 AM CDT documented as of this encounter Care Teams Residential Gas Heat Technician Relationship Specialty Start Date End Date Shannan Malcolm CNP [address] [place] [address] [phone] PCP - General Nurse Practitioner - Family 07/09/22 Shannan Malcolm CNP [address] [place] [address] 08128 Assigned PCP 04/07/22 Mattie Tellez APRN MANAGER FREELANCE [address] [place] [address] 89907 Assigned Behavioral Health Provider 09/22/22 documented as of this encounter
--- OUTSIDE RECORDS SUMMARY | 2024-04-14 14:41 | XMS_ITS | Encounter Summary ---
Author Organization [place] Address [address] [place] [address] Care Team Providers Care Weatherization Specialist Name Role Phone Shannan Malcolm CNP Unavailable [phone] Shannan Malcolm CNP Primary Care Provider [phone] Mattie Tellez APRN SOFTWARE DEVELOPER CONSULTANT Unavailable [phone] Reason for Visit * Reason Onset Date Comments Prior Auth - Medication 02/07/2023 methylph enidate HCL ER, [facility], (CONCERTA) 27 MG CR tablet- [place] APPROVED Encounter Details Date Type Department Care Team (Late st Contact Info) Description 02/07/2023 Telephone [facility] Mental Health & [facility] [address] [place] [address] Mattie Tellez APRN SOFTWARE DEVELOPER CONSULTANT 500 [place] [address] Prior Auth - Medication (methylphenidate [...] on file Legal Sex Female 3:13 AM PE MANAGER Gender Identity Female 02/08/2022 7:17 AM [...] Approved Dose/Quantity: 30 Reference #: Insurance Company: [employer] Non-Specialty PA's - Expected CoPay: CoPay Card Available: Financial Assistance Needed: Which Pharmacy is filling the prescription: [facility] #[facility] [place] - [address] Pharmacy Notified: Yes Patient Notified: Yes pharmacy will notify when ready * Telephone Encounter - Latesha Lopez - 02/12/2023 2:58 PM CDT Images from the original note were not included. Central Prior Authorization Team - [place] Initiation Medication: METHYLPHENIDATE HCL ER 27 MG PO TB24 Insurance Company: [employer] Non-Specialty PA's - Pharmacy Filling the Rx: [id number] [place] - [address] Filling Pharmacy Filling Pharmacy Fax: Start Date: 02/12/2023 * Telephone Encounter - Mariann Maloney RN - 02/12/2023 12:31 PM CDT RN checked with pharmacy and the patient used [facility] to apple picking supervisor a 30-day supply for $36.09. Will continue [...] documented as of this encounter Care Teams Weatherization Specialist Relationship Specialty Start Date End Date Shannan Malcolm CNP [address] [place] [address] 708[address] PCP - General Nurse Practitioner - Family 07/09/22 Shannan Malcolm CNP [address] [place] [address] 696962 Assigned PCP 04/07/22 Mattie Tellez APRN SOFTWARE DEVELOPER CONSULTANT 500 [place] [address] Assigned Behavioral Health Provider 09/22/22 documented as of this encounter
--- OUTSIDE RECORDS SUMMARY | 2024-04-14 14:41 | XMS_ITS | Encounter Summary ---
Author Organization [place] Address [address] [place] [address] Care Team Providers Care Photocopying Equipment Mechanic Name Role Phone Shannan Malcolm CNP Unavailable [phone] Shannan Malcolm CNP Primary Care Provider + [phone] Mattie Tellez APRN MAINTENANCE PERSON Unavailable [phone] Reason for Visit * Reason Onset Date Comments Refill Request 10/07/2022 Encounter Details Date Type Department Care Team (Late st Contact Info) Description 10/07/2022 MyC Refill [facility] Mental Health & [facility] [address] [address] [place] [address] Mattie Tellez, ROSEMARIE MAINTENANCE PERSON 500 [place] [address] Refill Request Social History Tobacco [...] on file Legal Sex Female 3:13 AM AIRPORT MAINTENANCE LABORER Gender Identity Female 02/08/2022 7:17 AM CDT [...] documented as of this encounter Care Teams Photocopying Equipment Mechanic Relationship Specialty Start Date End Date Shannan Malcolm CNP [address] [place] [address] [phone] PCP - General Nurse Practitioner - Family 07/09/22 Shannan Malcolm CNP [address] [place] [address] 69066 Assigned PCP 04/07/22 Mattie Tellez APRN MAINTENANCE PERSON [address] [place] [address] 35004 Assigned Behavioral Health Provider 09/22/22 documented as of this encounter
--- OUTSIDE RECORDS SUMMARY | 2024-04-14 14:41 | XMS_ITS | Encounter Summary ---
Author Organization [place] Address [facility] [address] Care Team Providers Care African History Professor Name Role Phone Shannan Malcolm CNP Unavailable [phone] Shannan Malcolm CNP Primary Care Provider + [phone] Mattie Tellez APRN ITALIAN LECTURER Unavailable [phone] Encounter Details Date Type Department Care Team (Late st Contact Info) Description 09/27/2023 [facility] Mental Health [facility] [address] [address] [place] [address] Mattie Tellez APRN ITALIAN LECTURER 500 [facility] [place], [place] [phone] Social History Tobacco Use Types Packs/Day Years [...] on file Legal Sex Female 3:13 AM NEPHROLOGY NURSE Gender Identity Female 02/08/2022 7:17 AM CDT [...] documented as of this encounter Care Teams African History Professor Relationship Specialty Start Date End Date Shannan Malcolm CNP [address] [place] [address] [phone] PCP - General Nurse Practitioner - Family 07/09/22 Shannan Malcolm CNP [address] [place] [address] 46164 Assigned PCP 04/07/22 Mattie Tellez APRN ITALIAN LECTURER [address] [place] [address] 25886 Assigned Behavioral Health Provider 09/22/22 documented as of this encounter
--- OUTSIDE RECORDS SUMMARY | 2024-04-14 14:41 | XMS_ITS | Encounter Summary ---
Author Organization [facility] Address [address] [place] [address] Care Team Providers Care Layout Designer Name Role Phone Shannan Malcolm CNP Unavailable [phone] Shannan Malcolm CNP Primary Care Provider + [phone] Mattie Tellez APRN RANGE SCIENTIST Unavailable [phone] Reason for Visit * Reason Onset Date Comments Forms 12/21/2022 Encounter Details Date Type Department Care Team (Late st Contact Info) Description 12/21/2022 Telephone [facility] [address] [place] [address] Mattie Tellez, ROSEMARIE RANGE SCIENTIST [address] [place], [place] [id number] Forms Social History Tobacco Use Types Packs/Day [...] on file Legal Sex Female 3:13 AM STORE COORDINATOR Gender Identity Female 02/08/2022 7:17 AM CDT Sexual Orientation Choose not to disclose 2021 7:17 AM CDT documented as of this encounter Miscellaneous Notes * Telephone Encounter - Keily Yeboah Armando - 12/21/2022 2:08 PM CDT Reason for call: Other Patient called regarding (reason for call): call back and Form Additional comments: [employer] calling to request changes to a form for patient: Question 12: first day of certification needs to be changed to 11/30/2022 from 12/19/2022. Please intial and date next to that question and fax back. Fax is listed at the top of the form. Phone number to reach patient: Other phone number: [employer]#: [phone]* Best Time: andrew Can we leave a detailed message on this number? YES Travel screening: Not Applicable documented in this encounter Plan of Treatment Not on file documented as of this encounter Visit Diagnoses Not on filedocumented in this encounter Additional Health Concerns Assessment Noted Time PHQ-9 Depression Total Score: 4 12/11/19 7:53 AM CDT documented as of this encounter Care Teams Layout Designer Relationship Specialty Start Date End Date Shannan Malcolm CNP [address] [place] [address] PCP - General Nurse Practitioner - Family 07/09/22 Shannan Malcolm CNP [address] [place] [address] 93252 Assigned PCP 04/07/22 Mattie Tellez APRN RANGE SCIENTIST [address] [place] [address] 60999 Assigned Behavioral Health Provider 09/22/22 documented as of this encounter
--- OUTSIDE RECORDS SUMMARY | 2024-04-14 14:41 | XMS_ITS | Encounter Summary ---
Author Organization [facility] Address [address] [place] [address] 1930[address] Care Team Providers Care Pantomimist Name Role Phone Shannan Malcolm CNP Unavailable [phone] Shannan Malcolm CNP Primary Care Provider + [phone] Mattie Tellez APRN CHAMBER WALKER Unavailable Reason for Visit * Reason Onset Date Comments Refill Request 04/10/2023 Encounter Details Date Type Department Care Team (Late st Contact Info) Description 04/10/2023 MyC Refill [facility] Mental [facility] [address] [place] [address] Mattie Tellez, ROSEMARIE CHAMBER WALKER [address] [place] [address] Refill Request Social History Tobacco [...] on file Legal Sex Female 3:13 AM PROOF CARRIER Gender Identity Female 02/08/2022 7:17 AM CDT Sexual Orientation Choose not to disclose 2021 7:17 AM CDT documented as of this encounter Miscellaneous Notes * Telephone Encounter - Shannon Boyer RN - 04/11/2023 12:18 PM CDT Dane Vincent, As requested, a prescription for lorazepam was sent to [facility] pharmacy in [place] this morning. Have a great day! Shannon Aggarwal RN. documented in this encounter Plan of Treatment Not on file documented as of this encounter Visit Diagnoses Diagnosis CATHY (generalized anxiety disorder) Generalized anxiety disorder documented in this encounter Additional Health Concerns Assessment Noted Time PHQ-9 Depression Total Score: 4 12/11/19 7:53 AM CDT documented as of this encounter Care Teams Pantomimist Relationship Specialty Start Date End Date Shannan Malcolm CNP [address] [place] [address] [phone] PCP - General Nurse Practitioner - Family 07/09/22 Shannan Malcolm CNP [address] [place] [address] 327062 Assigned PCP 04/07/22 Mattie Tellez APRN CHAMBER WALKER [address] [place] [address] Assigned Behavioral Health Provider 09/22/22 documented as of this encounter
--- OUTSIDE RECORDS SUMMARY | 2024-04-14 14:41 | XMS_ITS | Encounter Summary ---
Author Organization [facility] Address [address] [place] [address]. [place] [address] Care Team Providers Care Automotive Software Engineer Name Role Phone Shannan Malcolm CNP Unavailable [phone] Shannan Malcolm CNP Primary Care Provider [phone] Mattie Tellez APRN CASE MANAGERS Unavailable [phone] Reason for Visit * Reason Onset Date Comments See 05/17/23 MyChart Med Advice encounter 023 Encounter Details Date Type Department Care Team (Late st Contact Info) Description 05/22/2023 [facility] Health & [facility] [address] [place] [address] Mattie Tellez APRN CASE MANAGERS [address] [place] [address] See 05/17/23 MyChart Med Advice [...] on file Legal Sex Female 3:13 AM CANDY WRAPPING MACHINE OPERATOR Gender Identity Female 02/08/2022 7:17 AM CDT Sexual Orientation Choose not to disclose 2021 7:17 AM CDT documented as of this encounter Miscellaneous Notes * Telephone Encounter - Edilia Costello RN - 05/22/2023 1:41 PM CST This being addressed in 05/17/23/ [facility] Med Advice encounter Y WRAPPING MACHINE OPERATOR documented in this encounter Plan of Treatment Not on file documented as of this encounter Visit Diagnoses Diagnosis Attention deficit hyperactivity disorder (ADHD), predominantly inattentive type documented in this encounter Additional Health Concerns Assessment Noted Time PHQ-9 Depression Total Score: 4 12/11/19 7:53 AM CDT documented as of this encounter Care Teams Automotive Software Engineer Relationship Specialty Start Date End Date Shannan Malcolm CNP [address] [place] [address] PCP - General Nurse Practitioner - Family 07/09/22 Shannan Malcolm CNP [address] [place] [address] 540[address] Assigned PCP 04/07/22 Mattie Tellez APRN CASE MANAGERS [address] [place] [address] Assigned Behavioral Health Provider 09/22/22 documented as of this encounter
--- OUTSIDE RECORDS SUMMARY | 2024-04-14 14:41 | XMS_ITS | Encounter Summary ---
Author Organization [facility] Address [address] [place] [address] Care Team Providers Care Quality Internship Name Role Phone Shannan Malcolm CNP Unavailable [phone] Shannan Malcolm CNP Primary Care Provider + [phone] Mattie Tellez APRN CALL CENTER ASSISTANT Unavailable [phone] Reason for Visit * Reason Onset Date Comments Refill Request 03/13/2023 Encounter Details Date Type Department Care Team (Late st Contact Info) Description 03/13/2023 MyC Refill [facility] Mental Health & [facility] [address] [place] [address] Mattie Tellez, ROSEMARIE CALL CENTER ASSISTANT [address] [place] [address] Refill Request Social History Tobacco [...] on file Legal Sex Female 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 [place] Crisis Text Line. Text [place] to 833721 or Suicide LifeLine Chat: suicidepreventionlifeline.org/chat Schedule an appointment with me in 5 weeks or sooner as needed. Call [facility] [phone] to schedule. Follow up with primary care provider as planned or for acute medical concerns. Call the psychiatric nurse line with medication questions or concerns at [phone]. MyChart may be used to communicate with your provider, but this is not intended to be used for emergencies. []Medication refilled per ???Medication Refill in Copy Coordinator?? policy. [x]Medication unable to be refilled by [...] documented as of this encounter Care Teams Quality Internship Relationship Specialty Start Date End Date Shannan Malcolm CNP [address] [place] [address] 184032 PCP - General Nurse Practitioner - Family 07/09/22 Shannan Malcolm CNP [address] [place] [address] 140372 Assigned PCP 04/07/22 Mattie Tellez APRN CNP [address] [place] [address] 47[address] Assigned Behavioral Health Provider 09/22/22 documented as of this encounter
--- OUTSIDE RECORDS SUMMARY | 2024-04-14 14:41 | XMS_ITS | Encounter Summary ---
Author Organization [facility] Address [address] [place] [address] Care Team Providers Care Ob Gyn Physician Assistant Name Role Phone Shannan Malcolm CNP Unavailable [phone] Shannan Malcolm CNP Primary Care Provider + [phone] Mattie Tellez APRN SERIALS LIBRARIAN Unavailable [phone] Reason for Visit * Reason Onset Date Comments SIDE EFFECTS 01/21/2023 Grinding and isaiah nching jaw Encounter Details Date Type Department Care Team (Late st Contact Info) Description 01/21/2023 [facility] [place] [facility] [address] [address] [place] [address] Mattie Tellez APRN SERIALS LIBRARIAN [address] [place] [address] SIDE EFFECTS (Grinding and clenching [...] on file Legal Sex Female 3: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
--- OUTSIDE RECORDS SUMMARY | 2024-04-14 14:41 | XMS_ITS | Encounter Summary ---
Author Organization [facility] Address [address] [place] [address] Care Team Providers Care Library Customer Service Clerk Name Role Phone Shannan Malcolm CNP Unavailable [phone] Nabeel Nolan MD Unavailable [phone] Shannan Malcolm LINE ERECTOR APPRENTICE Primary Care Provider [phone] Mattie Tellez APRN LINE ERECTOR APPRENTICE Unavailable [phone] Reason for Visit * Reason Onset Date Comments MyChart Communication 09/19/2022 Encounter Details Date Type Department Care Team (Late st Contact Info) Description 09/19/2022 MyC Medical Advice [address] [address] Shannan Malcolm, LINE ERECTOR APPRENTICE [address] [place] [address] MyChart Communication Social History Tobacco Use [...] on file Legal Sex Female 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 AM BELT SPLICER Gender Identity Female 02/08/2022 7:17 AM CDT [...] Thank you Maria Antonia Vázquez RN, BSN [place] Triage documented in this encounter Plan of Treatment Not on file documented as of this encounter Visit Diagnoses Not on filedocumented in this encounter Additional Health Concerns Assessment Noted Time PHQ-9 Depression Total Score: 25 023 7:10 AM CDT documented as of this encounter Care Teams Library Customer Service Clerk Relationship Specialty Start Date End Date Shannan Malcolm CNP [address] [place] [address] 138802 PCP - General Nurse Practitioner - Family 07/09/22 Shannan Malcolm CNP [address] [place] [address] 63183 Assigned PCP 04/07/22 Nabeel Nolan MD [address] [place] [address] 71383 Assigned Behavioral Health Provider 06/02/22 09/21/22 Mattie Tellez APRN LINE ERECTOR APPRENTICE [address] [place] [address] 10794 Assigned Behavioral Health Provider 09/22/22 documented as of this encounter
--- OUTSIDE RECORDS SUMMARY | 2024-04-14 14:41 | XMS_ITS | Encounter Summary ---
Author Organization [facility] Address [address] [place] [address] Care Team Providers Care Electrical Lineworker Name Role Phone Shannan Malcolm CNP Unavailable [phone] Shannan Malcolm CNP Primary Care Provider + [phone] Mattie Tellez APRN NECK BAND MAKER Unavailable [phone] Encounter Details Date Type Department Care Team ([facility] st Contact Info) Description 05/27/2023 Telephone [facility] Mental Health & [facility] [address] [place] [address] Mattie Tellez APRN NECK BAND MAKER [address] [place], [place] 5[address] Social History Tobacco Use Types Packs/Day Years [...] on file Legal Sex Female 3:13 AM MARKETING SALES REPRESENTATIVE Gender Identity Female 02/08/2022 7:17 AM CDT Sexual Orientation Choose not to disclose 2021 7:17 AM CDT documented as of this encounter Miscellaneous Notes * Telephone Encounter - Yolanda Ahn RN - 05/27/2023 2:14 PM MARKETING SALES REPRESENTATIVE Called and explained to the patient that [...] Ahn RN on 05/27/2023 at 2:15 PM ETING SALES REPRESENTATIVE * Telephone Encounter - Jane Jordan DO - 05/27/2023 1:01 PM CST Could RN please inform pt that there is a shortage of all stimulant medication used to treat ADHD. I am not comfortable switching her to something different but I am happy to send the Rx to a different pharmacy if pt would like. ETING SALES REPRESENTATIVE * Telephone Encounter - Yolanda Ahn RN - 05/27/2023 12:30 PM MARKETING SALES REPRESENTATIVE Patient has been out of Concerta 36 [...] Ahn RN on 05/27/2023 at 12:32 PM ETING SALES REPRESENTATIVE * Telephone Encounter - Chantel Kilpatrick - 05/27/2023 11:46 AM CST Reason for call: Medication If this is a refill request, has the caller requested the refill from the pharmacy already? Yes Will the patient be using a [facility]? [place] of the pharmacy and phone number for the current request: [facility] [phone] Name of the medication requested: Concerta Other request: Concerta will not be manufactured until June and wants to see about switching to something similar so it can be filled. Patient has been out for 2.5 weeks. Wants to machine operator hop picker in [place] is possible. Patient has requested a refill from their pharmacies listed and the pharmacies have nothing in their supply to refill it with. Pt understanded there is a national shortage Phone number to reach patient: Home number on file [phone] (home) Best Time: Any Can we leave a detailed message on this number? YES Travel screening: Not Applicable ETING SALES REPRESENTATIVE documented in this encounter Plan of Treatment Not on file documented as of this encounter Visit Diagnoses Not on filedocumented in this encounter Additional Health Concerns Assessment Noted Time PHQ-9 Depression Total Score: 4 12/11/19 23 7:53 AM CDT documented as of this encounter Care Teams Electrical Lineworker Relationship Specialty Start Date End Date Shannan Malcolm CNP [address] [place] [address] 995102 PCP - General Nurse Practitioner - Family 07/09/22 Shannan Malcolm CNP [address] [place] [address] 13613 Assigned PCP 04/07/22 Mattie Tellez APRN CNP [address] [place] [address] 85573 Assigned Behavioral Health Provider 09/22/22 documented as of this encounter
--- OUTSIDE RECORDS SUMMARY | 2024-04-14 14:41 | XMS_ITS | Encounter Summary ---
Author Organization [facility] Address [address] [place] [address]. [place] [address] Care Team Providers Care Office Support Clerk Name Role Phone Shannan Malcolm CNP Unavailable [phone] Shannan Malcolm CNP Primary Care Provider [phone] Mattie Tellez APRN SIEVE GRADER TENDER Unavailable [phone] Reason for Visit * Reason Onset Date Comments Early refill request 10/10/2023 clonazePAM (KLONOPIN) 0.5 MG tablet Encounter Details Date Type Department Care Team (Late st Contact Info) Description 10/10/2023 [facility] Medical Advice [facility] Mental Health & [facility] [address] [place] [address] [address] [place] [address] Mattie Tellez, ROSEMARIE SIEVE GRADER TENDER [address] [place] [address] Early refill request (clonazePAM (KLONOPIN... [...] on file Legal Sex Female 3:13 AM CAREER PROFESSIONAL Gender Identity Female 02/08/2022 7:17 AM CDT Sexual Orientation Choose not to disclose 2021 7:17 AM CDT documented as of this encounter Miscellaneous Notes * Telephone Encounter - Ed Castro RN - 10/10/2023 11:08 AM CDT 1) Per Mattie Tellez CNP: I will send short prescription with ok for early fill if approved by pharmacy/insurance. Will message patient. 2) Phoned [facility] in [place]. Gave verbal order Ok for early fill per Mattie Tellez CNPPharmacy civil technician verbalized understanding and stated that the [...] original note were not included. Reviewed patient's [employer] message. She is requesting an early refill of Clonazepam. ED CASTRO RN on 10/10/2023 at 9:28 AM documented in this encounter Plan of Treatment Not on file documented as of this encounter Visit Diagnoses Not on filedocumented in this encounter Additional Health Concerns Assessment Noted Time PHQ-9 Depression Total Score: 4 12/11/19 23 7:53 AM CDT documented as of this encounter Care Teams Office Support Clerk Relationship Specialty Start Date End Date Shannan Malcolm CNP [address] [place] [address] [phone] PCP - General Nurse Practitioner - Family 07/09/22 Shannan Malcolm CNP [address] [place] [address] 364612 Assigned PCP 04/07/22 Mattie Tellez APRN CNP [address] [place] [address] [id number] Assigned Behavioral Health Provider 09/22/22 documented as of this encounter
--- OUTSIDE RECORDS SUMMARY | 2024-04-14 14:41 | XMS_ITS | Encounter Summary ---
Author Organization [facility] Address [address] [place] [address] Care Team Providers Care Housing Development Specialist Name Role Phone Shannan Malcolm SHELL FREEZING MACHINE OPERATOR Unavailable [phone] Nabeel Nolan MD Unavailable [phone] Shannan Malcolm SHELL FREEZING MACHINE OPERATOR Primary Care Provider Mattie Tellez APRN SHELL FREEZING MACHINE OPERATOR Unavailable [phone] Reason for Visit * Reason Onset Date Comments Refill Request 09/15/2022 Encounter Details Date Type Department Care Team (Late st Contact Info) Description 09/15/2022 MyC Medical Advice [address] [place] [phone] Shannan Malcolm, SHELL FREEZING MACHINE OPERATOR [address] [place] [address] Refill Request Social History Tobacco Use [...] on file Legal Sex Female 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 Gender Identity Female 02/08/2022 7:17 AM CDT [...] documented as of this encounter Care Teams Housing Development Specialist Relationship Specialty Start Date End Date Shannan Malcolm CNP [address] [place] [address] [phone] PCP - General Nurse Practitioner - Family 07/09/22 Shannan Malcolm CNP [address] [place] [address] 82257 Assigned PCP 04/07/22 Nabeel Nolan MD [address] [place] [address] [id number] Assigned Behavioral Health Provider 06/02/22 09/21/22 Mattie Tellez APRN SHELL FREEZING MACHINE OPERATOR [address] [place] [address] 75398 Assigned Behavioral Health Provider 09/22/22 documented as of this encounter
--- OUTSIDE RECORDS SUMMARY | 2024-04-14 14:41 | XMS_ITS | Encounter Summary ---
Author Organization [facility] Address [address] [place] [address] Care Team Providers Care Hvac Sales Engineer Name Role Phone Shannan Malcolm CNP Unavailable [phone] Shannan Malcolm CNP Primary Care Provider [phone] Mattie Tellez APRN DENTAL INSURANCE BILLER Unavailable [phone] Encounter Details Date Type Department Care Team (Latest Contact Info) Description 03/14/2023 [facility] [place] Medical Advice [facility] Health & [facility] [address] [place] [address] Mattie Tellez APRN DENTAL INSURANCE BILLER [address] [place], [place] [phone] Attention deficit hyperactivity disorder (ADHD), predominantly inattentive [...] on file Legal Sex Female 3:13 AM INTEGRITY CONSULTANT Gender Identity Female 02/08/2022 7:17 AM CDT Sexual Orientation Choose not to disclose 2021 7:17 AM CDT documented as of this encounter Miscellaneous Notes * Telephone Encounter - Yolanda Ahn RN - 03/14/2023 11:00 AM CDT Patient's pharmacy is out of stock on her Concerta 36 mg. She would like it sent to the [facility] in [place]. [place] INSURANCE FOLLOW UP REP sold date was 02/12/23. methylphenidate HCL ER, [...] Yes Will the patient be using a [facility]? [place] of the pharmacy and phone number for the current request: [facility] [facility]. [phone]. Name of the medication requested: ADHD medication [...] documented as of this encounter Care Teams Hvac Sales Engineer Relationship Specialty Start Date End Date Shannan Malcolm CNP [address] [place] [address]250 PCP - General Nurse Practitioner - Family 07/09/22 Shannan Malcolm CNP [address] [place] [address] 148562 Assigned PCP 04/07/22 Mattie Tellez APRN DENTAL INSURANCE BILLER [address] [place] [address] 45206 Assigned Behavioral Health Provider 09/22/22 documented as of this encounter
--- OUTSIDE RECORDS SUMMARY | 2024-04-14 14:41 | XMS_ITS | Encounter Summary ---
Author Organization [facility] Address [facility] [place] [address] Care Team Providers Care Ramp Supervisor Name Role Phone Shannan Malcolm CNP Unavailable [phone] Shannan Malcolm CNP Primary Care Provider + [phone] Mattie Tellez APRN VP GENETIC Unavailable [phone] Encounter Details Date Type Department Care Team (Late st Contact Info) Description 10/10/2023 [facility] Health & [facility] [address] [address] [place] [address] Mattie Tellez APRN VP GENETIC [address] [facility] [place], [place] 2[address] Social History Tobacco Use Types Packs/Day Years [...] on file Legal Sex Female 3:13 AM EXTRACTIONS TECHNICIAN Gender Identity Female 02/08/2022 7:17 AM [...] documented as of this encounter Care Teams Ramp Supervisor Relationship Specialty Start Date End Date Shannan Malcolm CNP [address] [place], [place] 426212 PCP - General Nurse Practitioner - Family 07/09/22 Shannan Malcolm CNP [address] [place] [address] 694222 Assigned PCP 04/07/22 Mattie Tellez APRN CNP [address] [place] [address] 02149 Assigned Behavioral Health Provider 09/22/22 documented as of this encounter
--- OUTSIDE RECORDS SUMMARY | 2024-04-14 14:41 | XMS_ITS | Encounter Summary ---
Author Organization [facility] Address [address] [place] [address] Care Team Providers Care Carbide Grinder Name Role Phone Shannan Malcolm CNP Unavailable [phone] Nabeel Nolan MD Unavailable [phone] Shannan Malcolm MACHINE STITCHER Primary Care Provider [phone] Mattie Tellez APRN MACHINE STITCHER Unavailable [phone] Reason for Visit * Reason Onset Date Comments Prior Auth - Medication 09/21/2022 Methylph enidate HCI ER (OSM) 18MG ER Tablets Encounter Details Date Type Department Care Team (Late st Contact Info) Description 09/21/[address] [address] Shannan Malcolm, MACHINE STITCHER [address] [place] [address] Prior Auth - Medication (Methylphenidate HCI [...] on file Legal Sex Female 3:13 AM BORING MACHINE OPERATOR HELPER Gender Identity Female 02/08/2022 7:17 AM [...] she will stick with the Methylphenidate instead. Heart Coordinator advised good RX, patient said she will [...] ER (OSM) 18MG ER Tablets Insurance Company: [employer] - Pharmacy Filling the Rx: [facility] [place], [place] - [address] Filling Pharmacy Filling Pharmacy Fax: Start Date: 09/26/2022 * Telephone Encounter - Eldon Frost - 09/24/2022 2:41 PM CDT Prior Authorization Retail Medication Request Medication/Dose: [facility] for Methylphenidate HCI ER (OSM) 18MG ER Tablets ICD code (if different than what is on RX): Previously Tried and Failed: Rationale: Insurance Name: Insurance ID: Pharmacy Information (if different than what is on RX) Name: [facility] Phone: [phone] [id number] * Telephone Encounter - Abrahan Velez - 09/21/2022 2:22 PM CDT Forms/Letter Request Type of form/letter: [facility] for Methylphenidate HCI ER (OSM) 18MG ER Tablets Have you been seen for this request: N/A Do we have the form/letter: Yes: Placed in TC bin (yellow folder) Who is the form from? [facility] for Methylphenidate HCI ER (OSM) [...] documented as of this encounter Care Teams Carbide Grinder Relationship Specialty Start Date End Date Shannan Malcolm CNP [address] [place] [address] PCP - General Nurse Practitioner - Family 07/09/22 Shannan Malcolm CNP [address] [place] [address] Assigned PCP 04/07/22 Nabeel Nolan MD [address] [place] [address] Assigned Behavioral Health Provider 06/02/22 09/21/22 Mattie Tellez APRN MACHINE STITCHER [address] [place] [address] Assigned Behavioral Health Provider 09/22/22 documented as of this encounter
--- OUTSIDE RECORDS SUMMARY | 2024-04-14 14:41 | XMS_ITS | Encounter Summary ---
Author Organization [facility] Address [address] [place] [address] Care Team Providers Care Commercial Journeyman Electrician Name Role Phone Shannan Malcolm CNP Unavailable [phone] Shannan Malcolm CNP Primary Care Provider + [phone] Mattie Tellez APRN ASSEMBLER SEAT Unavailable [phone] Reason for Visit * Reason Onset Date Comments Refill Request 12/31/2022 Encounter Details Date Type Department Care Team (Late st Contact Info) Description 12/31/2022 MyC Refill [facility] [address] [place] [address] Mattie Tellez, ROSEMARIE ASSEMBLER SEAT [address] [place] [address] Refill Request Social History Tobacco [...] on file Legal Sex Female 3:13 AM BREW HOUSE SUPERVISOR Gender Identity Female 02/08/2022 7:17 AM [...] documented as of this encounter Care Teams Commercial Journeyman Electrician Relationship Specialty Start Date End Date Shannan Malcolm CNP [address] [place] [address] PCP - General Nurse Practitioner - Family 07/09/22 Shannan Malcolm CNP [address] [place] [address] Assigned PCP 04/07/22 Mattie Tellez APRN ASSEMBLER SEAT [address] [place] [address] Assigned Behavioral Health Provider 09/22/22 documented as of this encounter
--- OUTSIDE RECORDS SUMMARY | 2024-04-14 14:41 | XMS_ITS | Encounter Summary ---
Author Organization [facility] Address [address] [place] [address] Care Team Providers Care Retail Representative Name Role Phone Shannan Malcolm DIRECTOR SMB SALES Unavailable [phone] Nabeel Nolan MD Unavailable [phone] Shannan Malcolm DIRECTOR SMB SALES Primary Care Provider Mattie Tellez APRN DIRECTOR SMB SALES Unavailable [phone] Reason for Visit * Reason Onset Date Comments Refill Request 09/20/2022 Encounter Details Date Type Department Care Team (Late st Contact Info) Description 09/20/2022 MyC Refill [address] [phone] Shannan Malcolm, DIRECTOR SMB SALES [address] [place] [address] [phone] Refill Request Social History Tobacco Use Types [...] on file Legal Sex Female 3:13 AM ACTOR UNDERSTUDY Gender Identity Female 02/08/2022 7:17 AM CDT [...] documented as of this encounter Care Teams Retail Representative Relationship Specialty Start Date End Date Shannan Malcolm CNP [address] [place] [address] PCP - General Nurse Practitioner - Family 07/09/22 Shannan Malcolm CNP [address] [place] [address] Assigned PCP 04/07/22 Nabeel Nolan MD [address] [place] [address] Assigned Behavioral Health Provider 06/02/22 09/21/22 Mattie Tellez APRN DIRECTOR SMB SALES [address] [place] [address] Assigned Behavioral Health Provider 09/22/22 documented as of this encounter
--- OUTSIDE RECORDS SUMMARY | 2024-04-14 14:41 | XMS_ITS | Encounter Summary ---
Author Organization [facility] Address [address] [place] [address] Care Team Providers Care Pure Pak Machine Operator Name Role Phone Shannan Malcolm CNP Unavailable [phone] Shannan Malcolm CNP Primary Care Provider + [phone] Mattie Tellez APRN TOUR ACTOR Unavailable [phone] Reason for Visit * Reason Onset Date Comments Telephone 03/08/2023 Jason Rosales Encounter Details Date Type Department Care Team (Late st Contact Info) Description 03/08/2023 [facility] [address] [place] [address] [address] [place] [address] Mattie Tellez APRN TOUR ACTOR [address] [place] [address] Telephone (Jason Rosales) Social History [...] file Legal Sex Female 3:13 AM DRY CHAIN OPERATOR Gender Identity Female 02/08/2022 7:17 AM CDT Sexual Orientation Choose not to disclose 2021 7:17 AM CDT documented as of this encounter Miscellaneous Notes * Telephone Encounter - Mariann Maloney RN - 03/11/2023 12:41 PM CDT RN reviewed that there are incomplete forms located in [employer] from [place] with a date of 02/23/23. One has [...] documented as of this encounter Care Teams Pure Pak Machine Operator Relationship Specialty Start Date End Date Shannan Malcolm CNP [address] [place] [address] [phone] PCP - General Nurse Practitioner - Family 07/09/22 Shannan Malcolm CNP [address] [place] [address] Assigned PCP 04/07/22 Mattie Tellez APRN TOUR ACTOR [address] [place] [address] Assigned Behavioral Health Provider 09/22/22 documented as of this encounter
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
--- OUTSIDE RECORDS SUMMARY | 2024-04-14 14:42 | XMS_ITS | Encounter Summary ---
Author Organization [facility] Address [address] [place] [address] Care Team Providers Care Bankruptcy Legal Assistant Name Role Phone Anni Nair PA-C Primary Care Provider + [phone] Shannan Malcolm FUND ACCOUNTANT Unavailable [phone] Shannan Malcolm CNP Unavailable [phone] Nabeel Nolan MD Unavailable [phone] Shannan Malcolm CNP Primary Care Provider [phone] Mattie Tellez APRN FUND ACCOUNTANT Unavailable [phone] Reason for Visit * Reason Onset Date Comments MyChart Communication 03/05/2022 Encounter Details Date Type Department Care Team (Late st Contact Info) Description 03/05/2022 MyC Medical Advice [address] [address] Shannan Malcolm, FUND ACCOUNTANT [address] [place] [address] MyChart Communication Social History Tobacco Use [...] on file Legal Sex Female 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 Gender Identity Female 02/08/2022 7:17 AM [...] Thank you Maria Antonia Vázquez RN, BSN [place] Triage documented in this encounter Plan of Treatment Not on file documented as of this encounter Visit Diagnoses Not on filedocumented in this encounter Additional Health Concerns Infection Onset Date Last Indicated Resolved Time Rule Out COVID-19 03/09/2022 03/09/2022 03/30/2022 11:39 PM CDT Assessment Noted Time PHQ-9 Depression Total Score: 15 022 8:50 AM CDT documented as of this encounter Care Teams Bankruptcy Legal Assistant Relationship Specialty Start Date End Date Anni Nair PA-C PCP - General Physician Videographer 10/01/17 07/08/22 Shannan Malcolm CNP [address] [place] [address] PCP - General Nurse Practitioner - Family 07/09/22 Shannan Malcolm CNP [address] [place] [address] 275192 Assigned PCP 02/24/22 03/16/22 Shannan Malcolm CNP [address] [place] [address] 685672 Assigned PCP 04/07/22 Nabeel Nolan MD [address] [place] [address] [phone] Assigned Behavioral Health Provider 06/02/22 09/21/22 Mattie Tellez APRN FUND ACCOUNTANT [address] [place] [address] 859005 Assigned Behavioral Health Provider 09/22/22 documented as of this encounter
--- OUTSIDE RECORDS SUMMARY | 2024-04-14 14:42 | XMS_ITS | Encounter Summary ---
Author Organization [facility] Address [address] [place] [address] Care Team Providers Care Sample Prep Technician Name Role Phone Anni Nair PA-C Primary Care Provider [phone] Shannan Malcolm BAR HOSTESS Unavailable [phone] Nabeel Nolan MD Unavailable [phone] Shannan Malcolm BAR HOSTESS Primary Care Provider [phone] Mattie Tellez APRN BAR HOSTESS Unavailable [phone] Encounter Details Date Type Department Care Team (Late st Contact Info) Description 03/29/2022 MyC Medical Advice [address] [place] [address] Zeynep Del Castillo RN 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 Gender Identity Female 02/08/2022 7:17 AM [...] Thank you Maria Antonia Vázquez RN, BSN [facility] Triage documented in this encounter Plan of Treatment Not on file documented as of this encounter Visit Diagnoses Not on filedocumented in this encounter Additional Health Concerns Infection Onset Date Last Indicated Resolved Time Rule Out COVID-19 03/09/2022 03/09/2022 03/30/2022 11:39 PM CDT Assessment Noted Time PHQ-9 Depression Total Score: 15 022 8:50 AM CDT documented as of this encounter Care Teams Sample Prep Technician Relationship Specialty Start Date End Date Anni Nair PA-C PCP - General Physician Before And After School Daycare Worker 10/01/17 07/08/22 Shannan Malcolm CNP [address] [place] [address] PCP - General Nurse Practitioner - Family 07/09/22 Shannan Malcolm CNP [address] [place] [address] Assigned PCP 04/07/22 Nabeel Nolan MD [address] [place] [address] Assigned Behavioral Health Provider 06/02/22 09/21/22 Mattie Tellez APRN BAR HOSTESS [address] [place], [place] [phone] Assigned Behavioral Health Provider 09/22/22 documented as of this encounter
--- OUTSIDE RECORDS SUMMARY | 2024-04-14 14:42 | XMS_ITS | Encounter Summary ---
Author Organization [facility] Address [address] [place] [address] Care Team Providers Care Removable Prosthodontist Name Role Phone Nabeel Maki MD Primary Care Provider [phone] Noemi Vidal MD Primary Care Provider [phone] Azra Samano APRN ELECTRONIC PAGINATION SYSTEM OPERATOR Primary Care Provider Unavailable [facility] Primary Care Provider Anni Nair-C Primary Care Provider [phone] Anni Nair-C Unavailable [phone] Anni Nair-C Unavailable +[phone] Lesli Ham PA-C Unavailable [phone] Arellano DO Unavailable [phone] Anni Nair-C Unavailable [phone] Shannan Malcolm CNP Unavailable [phone] Shannan Malcolm CNP Unavailable [phone] Nabeel Nolan MD Unavailable [phone] Shannan Malcolm CNP Primary Care Provider [phone] Mattie Tellez APRN ELECTRONIC PAGINATION SYSTEM OPERATOR Unavailable [phone] Encounter Details Date Type Department Care Team (Late st Contact Info) Description 10/23/[address] 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 Gender Identity Female 02/08/2022 7:17 AM [...] documented as of this encounter Care Teams Removable Prosthodontist Relationship Specialty Start Date End Date Nabeel Maki MD [address] [place] [address] PCP - General 07/25/01 10/25/09 Noemi Vidal MD [address] [place] [address] PCP - General Family Practice 10/26/09 01/19/14 Azra Samano APRN ELECTRONIC PAGINATION SYSTEM OPERATOR [address] [place] [address] PCP - General Nurse Practitioner 01/20/14 11/08/[address] [address] PCP - General 11/09/15 09/30/17 Anni Nair PA-C [address] [place] [address] PCP - General Physician Wallpaper Hanger 10/01/17 07/08/22 Anni Nair PA-C [address] [place] [address] PCP - Assigned PCP 12/09/16 08/12/18 Shannan Malcolm, GROVER [address] [place] [address]21 PCP - General Nurse Practitioner - Family 07/09/22 Anni Nair PA-C [address] [place] [address] Assigned PCP 12/09/16 11/29/18 Lesli Ham PA-C [address] [place] [address] Assigned PCP 11/30/18 12/06/18 Rd Arellano DO [address] [place] [address] Assigned PCP 12/07/18 04/23/20 Anni Nair PA-C [address] [place] [address] Assigned PCP 04/24/20 10/15/20 Shannan Malcolm CNP [address] [place] [address] Assigned PCP 02/24/22 03/16/22 Shannan Malcolm CNP [address] [place] [address] Assigned PCP 04/07/22 Nabeel Nolan MD [address] [place] [address] Assigned Behavioral Health Provider 06/02/22 09/21/22 Mattie Tellez APRN ELECTRONIC PAGINATION SYSTEM OPERATOR [address] [place] [address] Assigned Behavioral Health Provider 09/22/22 documented as of this encounter
--- OUTSIDE RECORDS SUMMARY | 2024-04-14 14:42 | XMS_ITS | Encounter Summary ---
Author Organization [facility] Address [address] [place] [address] Care Team Providers Care Solid Tire Finisher Name Role Phone Anni Nair PA-C Primary Care Provider [phone] Shannan Malcolm GED PREPARATION TEACHER Unavailable [phone] Nabeel Nolan MD Unavailable [phone] Shannan Malcolm CNP Primary Care Provider [phone] Mattie Tellez APRN GED PREPARATION TEACHER Unavailable [phone] Encounter Details Date Type Department Care Team (Late st Contact Info) Description 07/05/2022 MyC Medical Advice [facility] [address] [place] [address] Anni Nair PA-C [address] [facility] [place] [address] Social History Tobacco Use Types Packs/Day [...] on file 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 Gender Identity Female 02/08/2022 7:17 AM CDT Sexual Orientation Choose not to disclose 2021 7:17 AM CDT documented as of this encounter Plan of Treatment Not on file documented as of this encounter Visit Diagnoses Not on filedocumented in this encounter Additional Health Concerns Assessment Noted Time PHQ-9 Depression Total Score: 16 022 9:07 AM NATIONAL DEDICATED TRUCK DRIVER documented as of this encounter Care Teams Solid Tire Finisher Relationship Specialty Start Date End Date Anni Nair PA-C PCP - General Physician Pressroom Supervisor 10/01/17 07/08/22 Shannan Malcolm CNP [address] [place] [address] 109882 PCP - General Nurse Practitioner - Family 07/09/22 Shannan Malcolm CNP [address] [place] [address] 965792 Assigned PCP 04/07/22 Nabeel Nolan MD [address] [place] [address] [id number] Assigned Behavioral Health Provider 06/02/22 09/21/22 Mattie Tellez APRN GED PREPARATION TEACHER [address] [place] [address] Assigned Behavioral Health Provider 09/22/22 documented as of this encounter
--- OUTSIDE RECORDS SUMMARY | 2024-04-14 14:42 | XMS_ITS | Encounter Summary ---
Author Organization [facility] Address [address] [place] [address] Care Team Providers Care Graduate Engineer Name Role Phone Anni Nair PA-C Primary Care Provider [phone] Shannan Malcolm VP OF PRODUCT Unavailable [phone] Nabeel Nolan MD Unavailable [phone] Shannan Malcolm CNP Primary Care Provider [phone] Mattie Tellez APRN VP OF PRODUCT Unavailable [phone] Encounter Details Date Type Department Care Team (Late st Contact Info) Description 03/19/2022 MyC Medical Advice [address] [place] [address] Shannan Malcolm, VP OF PRODUCT [address] [place] [address] Social History Tobacco Use Types Packs/Day [...] on file Legal 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 Female 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 Gender Identity Female 02/08/2022 7:17 AM CDT [...] documented as of this encounter Care Teams Graduate Engineer Relationship Specialty Start Date End Date Anni Nair PA-C PCP - General Physician Model Maker Plastic 10/01/17 07/08/22 Shannan Malcolm CNP [address] [place] [address] 695682 PCP - General Nurse Practitioner - Family 07/09/22 Shannan Malcolm CNP [address] [place] [address] 081732 Assigned PCP 04/07/22 Nabeel Nolan MD [address] [place] [address] Assigned Behavioral Health Provider 06/02/22 09/21/22 Mattie Tellez APRN VP OF PRODUCT [address] [place] [address] Assigned Behavioral Health Provider 09/22/22 documented as of this encounter
--- OUTSIDE RECORDS SUMMARY | 2024-04-14 14:42 | XMS_ITS | Encounter Summary ---
Author Organization [facility] Address [address] [place] [address] Care Team Providers Care Certified Ophthalmic Medical Technician Name Role Phone Nabeel Maki MD Primary Care Provider [phone] Noemi Vidal MD Primary Care Provider [phone] Azra Samano APRN REFRIGERATING ENGINEER Primary Care Provider Unavailable [facility] Primary Care Provider Anni Nair-C Primary Care Provider [phone] Anni Nair-C Unavailable +[phone] Anni Nair-C Unavailable +1-4 [phone] Lesli Ham PA-C Unavailable [phone] Arellano DO Unavailable [phone] Anni Nair-C Unavailable +[phone] Shannan Malcolm CNP Unavailable +2-2 [phone] Shannan Malcolm CNP Unavailable +[phone] Nabeel Nolan MD Unavailable [phone] Shannan Malcolm CNP Primary Care Provider [phone] Mattie Tellez APRN REFRIGERATING ENGINEER Unavailable [phone] Encounter Details Date Type Department Care Team (Late st Contact Info) Description 10/25/[address] 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 Gender Identity Female 02/08/2022 7:17 AM [...] as of this encounter Care Teams Certified Ophthalmic Medical Technician Relationship Specialty Start Date End Date Nabeel Maki MD [address] [place] [address] PCP - General 07/25/01 10/25/09 Noemi Vidal MD [address] [place] [address] 76[address] PCP - General Family Practice 10/26/09 01/19/14 Azra Samano APRN CNP [address] [place] [address]1 PCP - General Nurse Practitioner 01/20/14 11/08/[address] [address] PCP - General 11/09/15 09/30/17 Anni Nair PA-C [address] [place] [address] 469[address] PCP - General Physician Chief Operator Synthesis 10/01/17 07/08/22 Anni Nair PA-C [address] [place] [address]10 PCP - Assigned PCP 12/09/16 08/12/18 Shannan Malcolm, GROVER [address] [place] [address] PCP - General Nurse Practitioner - Family 07/09/22 Anni Nair PA-C [address] [place] [address] Assigned PCP 12/09/16 11/29/18 Lesli Ham PA-C [address] [place] [address] 20628 Assigned PCP 11/30/18 12/06/18 Rd Arellano DO [address] [place] [address] 10[address] Assigned PCP 12/07/18 04/23/20 Anni Nair PA-C [address] [place] [address] Assigned PCP 04/24/20 10/15/20 Shannan Malcolm CNP [address] [place] [address] Assigned PCP 02/24/22 03/16/22 Shannan Malcolm CNP [address] [place] [address] Assigned PCP 04/07/22 Nabeel Nolan MD [address] [place] [address] Assigned Behavioral Health Provider 06/02/22 09/21/22 Mattie Tellez APRN REFRIGERATING ENGINEER [address] [place] [address] 32722 Assigned Behavioral Health Provider 09/22/22 documented as of this encounter
--- OUTSIDE RECORDS SUMMARY | 2024-04-14 14:42 | XMS_ITS | Encounter Summary ---
Author Organization [facility] Address [address] [place] [address] Care Team Providers Care Professor Of Theatre Name Role Phone Anni Nair PA-C Primary Care Provider [phone] Shannan Malcolm WEED INSPECTOR Unavailable +[phone] Nabeel Nolan MD Unavailable [phone] Shannan Malcolm CNP Primary Care Provider Mattie Tellez APRN WEED INSPECTOR Unavailable +[phone] Encounter Details Date Type Department Care Team (Late st Contact Info) Description 06/14/2022 MyC Medical Advice [address] [place] [address] Shannan Malcolm, WEED INSPECTOR [address] [place] [address] Social History Tobacco Use Types Packs/Day [...] on file Legal Sex Female 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 Gender Identity Female 02/08/2022 7:17 AM CDT Sexual Orientation Choose not to disclose 2021 7:17 AM CDT documented as of this encounter Plan of Treatment Not on file documented as of this encounter Visit Diagnoses Not on filedocumented in this encounter Additional Health Concerns Assessment Noted Time PHQ-9 Depression Total Score: 16 022 9:07 AM QUALITATIVE RESEARCHER documented as of this encounter Care Teams Professor Of Theatre Relationship Specialty Start Date End Date Anni Nair PA-C PCP - General Physician Irrigator Valve Pipe 10/01/17 07/08/22 Shannan Malcolm CNP [address] [place] [address] 147712 PCP - General Nurse Practitioner - Family 07/09/22 Shannan Malcolm CNP [address] [place] [address] 060222 Assigned PCP 04/07/22 Nabeel Nolan MD [address] [place] [address] [phone] Assigned Behavioral Health Provider 06/02/22 09/21/22 Mattie Tellez APRN WEED INSPECTOR [address] [place] [address] Assigned Behavioral Health Provider 09/22/22 documented as of this encounter
--- OUTSIDE RECORDS SUMMARY | 2024-04-14 14:42 | XMS_ITS | Encounter Summary ---
Author Organization [facility] Address [address] [place] [address] Care Team Providers Care Director Of Strategic Alliances Name Role Phone Anni Nair PA-C Primary Care Provider [phone] Shannan Malcolm DERMATOLOGY SPECIALIST Unavailable [phone] Nabeel Nolan MD Unavailable [phone] Shannan Malcolm CNP Primary Care Provider Mattie Tellez APRN DERMATOLOGY SPECIALIST Unavailable [phone] Encounter Details Date Type Department Care Team (Late st Contact Info) Description 06/12/2022 MyC Medical Advice [address] [place] [address] Shannan Malcolm, DERMATOLOGY SPECIALIST [address] [place] [address] Social History Tobacco Use Types Packs/Day [...] file Legal Sex Female 3:13 AM MEDICAL CASE MANAGER Gender Identity Female 02/08/2022 7:17 AM CDT Sexual Orientation Choose not to disclose 2021 7:17 AM CDT documented as of this encounter Miscellaneous Notes * Telephone Encounter - Xiomara Jones RN - 06/13/2022 12:44 PM CST FYI to provider. Pt did have a follow up visit Xiomara iSddiqi RN, BSN CAL CASE MANAGER documented in this encounter Plan of Treatment Not on file documented as of this encounter Visit Diagnoses Not on filedocumented in this encounter Additional Health Concerns Assessment Noted Time PHQ-9 Depression Total Score: 16 022 9:07 AM MEDICAL CASE MANAGER documented as of this encounter Care Teams Director Of Strategic Alliances Relationship Specialty Start Date End Date Anni Nair PA-C PCP - General Physician Slip Injector And Applicator 10/01/17 07/08/22 Shannan Malcolm CNP [address] [place] [address] PCP - General Nurse Practitioner - Family 07/09/22 Shannan Malcolm CNP [address] [place] [address] Assigned PCP 04/07/22 Nabeel Nolan MD [address] [place] [address] 40098 Assigned Behavioral Health Provider 06/02/22 09/21/22 Mattie Tellez APRN DERMATOLOGY SPECIALIST [address] [place] [address] 10466 Assigned Behavioral Health Provider 09/22/22 documented as of this encounter
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
--- OUTSIDE RECORDS SUMMARY | 2024-04-14 14:42 | XMS_ITS | Encounter Summary ---
Author Organization [facility] Address [address] [place] [address] Care Team Providers Care Child Life Assistant Name Role Phone Shannan Malcolm CNP Unavailable [phone] Nabeel Nolan MD Unavailable [phone] Shannan Malcolm CNP Primary Care Provider [phone] Mattie Tellez APRN HOG OPERATOR Unavailable [phone] Encounter Details Date Type Department Care Team (Late st Contact Info) Description 08/06/2022 MyC Medical Advice [address] [place] [address] Shannan Malcolm, HOG OPERATOR [address] [place] [address] Social History Tobacco Use Types Packs/Day [...] on file Legal Sex Female 3:[address] SECURITY OFFICER Gender Identity Female 02/08/2022 7:17 AM CDT Sexual Orientation Choose not to disclose 2021 7:17 AM CDT COVID-19 Exposure Response Date Recorded In the last 10 days, have yo u been in contact with someone who was confirmed or suspected to have Coronavirus/COVID-19? Yes 07/16/2022 4:[address] SECURITY OFFICER documented as of this encounter Plan of Treatment Not on file documented as of this encounter Visit Diagnoses Not on filedocumented in this encounter Additional Health Concerns Assessment Noted Time PHQ-9 Depression Total Score: 16 023 7:10 AM CDT documented as of this encounter Care Teams Child Life Assistant Relationship Specialty Start Date End Date Shannan Malcolm CNP [address] [place], [place] 142912 PCP - General Nurse Practitioner - Family 07/09/22 Shannan Malcolm CNP [address] [place] [address] 22431 Assigned PCP 04/07/22 Nabeel Nolan MD [address] [place] [address] 70084 Assigned Behavioral Health Provider 06/02/22 09/21/22 Mattie Tellez APRN HOG OPERATOR [address] [place] [address] 19069 Assigned Behavioral Health Provider 09/22/22 documented as of this encounter
--- OUTSIDE RECORDS SUMMARY | 2024-04-14 14:42 | XMS_ITS | Clinical Summary ---
Author Organization [facility] Address [place], [place] [address] Care Team Providers Care Continuous Improvement Coach Name Role Phone Brionna Giang MD Primary [...] Patient is followed by Azra Shine NP, DRILL PRESS SET UP OPERATOR RADIAL for ongoing prescription of a controlled medicine. [...] Department Care Team Description 04/06/2024 Lab Requisition [facility] [phone] Jb Vila MD from Last 3 Months [...] N Livin g 8 16 November Delivery Location:[facility] Last Filed Vital Signs Vital Sign [...] ANTI HIV 1/2 Routine 07/22/2023 11:43 AM [facility] Screen for STD (sexually transmitted disease) ANTI HCV Routine 07/22/2023 11:43 AM [facility] Screen for STD (sexually transmitted disease) HPV HIGH RISK Routine 07/22/2023 11:15 AM [facility] Pap smear for cervical cancer screening from Last 3 Months or Most Recently Relevant to Health Maintenance Results * LAB TRACKING EVENT (04/05/2024 9:07 AM CDT) Other (Other) Client Collect / Unknown 04/05/2024 9:07 AM CDT 04/06/2024 1:52 PM CDT Jb Vila MD LAB BILL ONLY [facility] [address] [place] [id number], * PATH TISSUE EXAM (04/05/2024 8:44 AM CDT) Case Report Pathology Report ?Case: [id number] ? Authorizing Provider: ??Jb Vila MD ?Collected: ? 04/05/2024 0844 ? Ordering Location: ? [facility] ?Received: ?04/06/2024 1417 ? Pathologist: ? Erasto Ferrell ? MD YUDY ? Specimen: ?Gallbladder ? 04/07/2024 3:02 PM CDT [facility] Final Diagnosis A) GALLBLADDER, CHOLECYSTECTOMY: 1. Chronic cholecystitis 2. Negative for cholelithiasis 3. Negative for dysplasia and malignancy 04/07/2024 3:02 PM CDT [facility] Clinical Information Ms. Santillan is a 38 y.o. who undergoes cholecystectomy. 04/07/2024 3:02 PM CDT [facility] Gross Description A) Received in formalin, labeled with the patient's name and gallbladder, is a 7.0 x 3.4 x 3.0 cm intact gallbladder. ??No discrete gallstones are identified. There are no mucosal lesions identified. The average wall thickness is 0.2 cm. There is no abnormal wall thickening identified. No cystic duct lymph node is identified. [place] Nurse sections are submitted in one cassette. EVM 04/06/2024 04/07/2024 3:02 PM CDT [facility] Microscopic Description The final diagnosis is based on microscopic examination of appropriate sections of all specimens. 04/07/2024 3:02 PM CDT [facility] Additional Information Interpreted at [facility] Central Laboratory - [address] [address] 04/07/2024 3:02 PM CDT [facility] Other SPECIMEN FROM GALLBLADDER / Unknown 04/05/2024 8:44 AM CDT 04/06/2024 2:17 PM CDT Jb Vila MD PATHOLOGY/CYTOLOGY Performing Organization Address City/[facility]/ZIP Co de Phone Number [facility] [address] [place] [address], * ANTI HCV (07/22/2023 11:43 AM [facility]) Pathologist [facility] HEPATITIS C ANTIBODY Non-Reacti ve Non-React ira 07/22/2023 4:39 PM [facility] Comment:Please note, per www .CDC.gov: If a patient is known to be at high risk of HCV infection, or is symptomatic, and the physician's suspicion of HCV infection is high, HCV RNA testing is often employed and is of diagnostic value, even after an initial negative anti-HCV test result. Blood BLOOD SPECIMEN / Unknown Venipuncture / Unknown 07/22/2023 11:43 AM [facility] 07/22/2023 11:43 AM [facility] Brionna Giang MD SEND OUTS Performing Organization Address [facility] Co de Phone Number [facility] [address] [place] [address], [place] * ANTI HIV 1/2 (07/22/2023 11:43 AM [facility]) Pathologist [facility] HIV-1/HIV-2 SCREEN Non-Reacti ve Non-Reacti ve 07/22/2023 4:48 PM [facility] Comment:HIV-1 p24 and HIV-1/ HIV-2 Ab Not Detected. Blood BLOOD SPECIMEN / Unknown Venipuncture / Unknown 07/22/2023 11:43 AM [facility] 07/22/2023 11:43 AM [facility] Brionna Giang MD SEND OUTS Performing Organization Address City/[facility] Co de Phone Number [facility] [address] [place] [address], * HPV HIGH RISK (07/22/2023 11:15 AM [facility]) Pathologist [facility] TYPE 16 Negative Negative 07/24/2023 5:14 PM [facility] TYPE 18 Negative Negative 07/24/2023 5:14 PM [facility] OTHER HIGH RISK TYPES Negative Negative 07/24/2023 5:14 PM [facility] Other (Cervical) Non-Blood / Unknown 07/22/2023 11:15 AM [facility] 07/23/2023 9:42 AM [facility] Narrative [facility] - 07/24/2023 5:14 PM [facility] HPV types 16, 18, 31, 33, 35, 39, 45, 51, 52, 56, 58, 59, 66 and 68 DNA were undetectable or below the pre-set threshold. Methodology: Gregory Dudley 4800 HPV Test Brionna Giang MD MICROBIOLOGY [facility] [address] [place] [address], from Last 3 Months or Most Recently [...] 10:08 PM 08/22/2010 1:01 AM Care Teams Continuous Improvement Coach Relationship Specialty [place] [address] [place] [address] PCP - General Family Practice 07/22/23
--- OUTSIDE RECORDS SUMMARY | 2024-04-14 14:42 | XMS_ITS | Encounter Summary ---
Author Organization [facility] Address [address] [place] [address] Care Team Providers Care Underbaster Name Role Phone Shannan Malcolm CNP Unavailable [phone] Nabeel Nolan MD Unavailable [phone] Shannan Malcolm CNP Primary Care Provider + [phone] Mattie Tellez APRN [facility] A [facility]AL [facility]ERS Unavailable [phone] Encounter Details Date Type Department Care Team (Late st Contact Info) Description 08/11/2022 Telephone M [facility] Epilepsy Care [address], [address] [place] [address] Fadumo Doe Social History Tobacco [...] on file Legal Sex Female 3:13 AM INSTITUTIONAL RESEARCH DIRECTOR Gender Identity Female 02/08/2022 7:17 AM CDT Sexual Orientation Choose not to disclose 2021 7:17 AM CDT COVID-19 Exposure Response Date Recorded In the last 10 days, have yo u been in contact with someone who was confirmed or suspected to have Coronavirus/COVID-19? Yes 07/16/2022 4:46 PM INSTITUTIONAL RESEARCH DIRECTOR documented as of this encounter Miscellaneous Notes * Telephone Encounter - Franco Bailey - 08/11/2022 12:34 PM CST Reached out to patient to schedule New Seizure, phone number in chart no longer valid. Unable to leave message. ITUTIONAL RESEARCH DIRECTOR documented in this encounter Plan of Treatment Not on file documented as of this encounter Visit Diagnoses Not on filedocumented in this encounter Additional Health Concerns Assessment Noted Time PHQ-9 Depression Total Score: 16 023 7:10 AM CDT documented as of this encounter Care Teams Underbaster Relationship Specialty Start Date End Date Shannan Malcolm CNP [address] [place] [address] PCP - General Nurse Practitioner - Family 07/09/22 Shannan Malcolm CNP [address] [place] [address] 99906 Assigned PCP 04/07/22 Nabeel Nolan MD [address] [place] [address] 70893 Assigned Behavioral Health Provider 06/02/22 09/21/22 Mattie Tellez APRN [facility] [address] [place] [address] Assigned Behavioral Health Provider 09/22/22 documented as of this encounter
--- OUTSIDE RECORDS SUMMARY | 2024-04-14 14:42 | XMS_ITS | Encounter Summary ---
Author Organization [facility] Address [address] [place] [address] Care Team Providers Care Java Web Application Developer Name Role Phone Azra Samano APRN, CNP Primary Care Provider Unavailable [facility] Primary Care Provider Anni Nair-C Primary Care Provider Anni Nair-C Unavailable [phone] Anni Nair-C Unavailable [phone] Lesli Ham-C Unavailable Rd Arellano DO Unavailable Anni Nair-C Unavailable [phone] Shannan Malcolm CNP Unavailable [phone] Shannan Malcolm CNP Unavailable [phone] Nabeel Nolan MD Unavailable [phone] Shannan Malcolm CNP Primary Care Provider Mattie Tellez APRN MARKET MASTER Unavailable [phone] Reason for Visit * Reason Onset Date Comments Outreach 07/27/2015 [facility] att 1 Encounter Details Date Type Department Care Team (Late st Contact Info) Description 07/27/[address] [address] Azra Samano APRN CNP NO [...] on file Legal Sex Female 3:13 AM CUSTOMER RELATIONS ADVISOR Gender Identity Female 02/08/2022 7:17 AM CDT Sexual Orientation Choose not to disclose 2021 7:17 AM CDT documented as of this encounter Miscellaneous Notes * Telephone Encounter - Michael Benoit - 07/27/2015 5:54 PM CST 07/27/15 Call Regarding Preventive Health Screening Cervical/PAP Attempt 1 Message on male Comments: Outreach Axle Turner cnt OMER RELATIONS ADVISOR documented in this encounter Plan of Treatment Not on file documented as of this encounter Visit Diagnoses Not on filedocumented in this encounter Additional Health Concerns Infection Onset Date Last Indicated Resolved Time Rule Out COVID-19 03/09/2022 03/09/2022 03/30/2022 11:39 PM CDT Assessment Noted Time PHQ-9 Depression Total Score: 14 016 8:04 AM CUSTOMER RELATIONS ADVISOR documented as of this encounter Care Teams Java Web Application Developer Relationship Specialty Start Date End Date Azra Samano APRN MARKET MASTER PCP - General Nurse Practitioner 01/20/14 11/08/15 [facility] - [address] [address] PCP - General 11/09/15 09/30/17 Anni Nair PA-C [address] [place] [address] PCP - General Physician New Accounts Clerk 10/01/17 07/08/22 Anni Nair PA-C [address] [facility] [place] [address] PCP - Assigned PCP 12/09/16 08/12/18 Shannan Malcolm, GROVER [address] [place] [address], [place] [address] PCP - General Nurse Practitioner - Family 07/09/22 Anni Nair PA-C [address] [place] [address] [place] [address] Assigned PCP 12/09/16 11/29/18 Lesli Ham PA-C [address] [place] [address], [place] [address] Assigned PCP 11/30/18 12/06/18 Rd Arellano DO [address] [place] [address], [place] [address] Assigned PCP 12/07/18 04/23/20 Anni Nair PA-C [address] [place] [address] [place] [address] Assigned PCP 04/24/20 10/15/20 Shannan Malcolm, GROVER [address] [place] [address], [place] [address] Assigned PCP 02/24/22 03/16/22 Shannan Malcolm, GROVER [address] [place] [address], [place] [address] Assigned PCP 04/07/22 Nabeel Nolan MD [address] [place] [address] Assigned Behavioral Health Provider 06/02/22 09/21/22 Mattie Tellez APRN [facility] [address] [place] [address] Assigned Behavioral Health Provider 09/22/22 documented as of this encounter
--- OUTSIDE RECORDS SUMMARY | 2024-04-14 14:42 | XMS_ITS | Encounter Summary ---
Author Organization [facility] Address [address] [place] [address] Care Team Providers Care Insurance Sales Supervisor Name Role Phone Anni Nair PA-C Primary Care Provider [phone] Shannan Malcolm AUTOMATION TEST DEVELOPER Unavailable [phone] Nabeel Nolan MD Unavailable [phone] Shannan Malcolm CNP Primary Care Provider Mattie Tellez APRN AUTOMATION TEST DEVELOPER Unavailable [phone] Encounter Details Date Type Department Care Team (Late st Contact Info) Description 03/30/2022 MyC Medical Advice [address] [place] [address] Shannan Malcolm, AUTOMATION TEST DEVELOPER [address] [place] [address] Social History Tobacco Use Types Packs/Day [...] on file Legal Sex Female 3:13 AM CHANGE MANAGEMENT ADMINISTRATOR Gender Identity Female 02/08/2022 7:17 AM CDT [...] documented as of this encounter Care Teams Insurance Sales Supervisor Relationship Specialty Start Date End Date Anni Nair PA-C PCP - General Physician Airplane Cabin Attendant 10/01/17 07/08/22 Shannan Malcolm CNP [address] [place] [address] [id number] PCP - General Nurse Practitioner - Family 07/09/22 Shannan Malcolm CNP [address] [place] [address] Assigned PCP 04/07/22 Nabeel Nolan MD [address] [place] [address] Assigned Behavioral Health Provider 06/02/22 09/21/22 Mattie Tellez APRN AUTOMATION TEST DEVELOPER [address] [place] [address] Assigned Behavioral Health Provider 09/22/22 documented as of this encounter
--- OUTSIDE RECORDS SUMMARY | 2024-04-14 14:42 | XMS_ITS | Encounter Summary ---
Author Organization [facility] Address [address] [place] [address] Care Team Providers Care Offset Platemaker Name Role Phone Anni Nair PA-C Primary Care Provider [phone] Shannan Malcolm EDUCATION OFFICER Unavailable [phone] Nabeel Nolan MD Unavailable [phone] Shannan Malcolm CNP Primary Care Provider + [phone] Mattie Tellez APRN EDUCATION OFFICER Unavailable [phone] Encounter Details Date Type Department Care Team (Late st Contact Info) Description 07/08/2022 MyC Medical Advice [facility] [address] [place] [phone] [place] [address] [place], [place] [id number] Social History Tobacco Use Types Packs/Day Years [...] on file Legal Sex Female 3:13 AM MECHANICAL AND AUTO BODY CAR CHECKER Gender Identity Female 02/08/2022 7:17 AM CDT Sexual Orientation Choose not to disclose 2021 7:17 AM CDT documented as of this encounter Plan of Treatment Not on file documented as of this encounter Visit Diagnoses Not on filedocumented in this encounter Additional Health Concerns Assessment Noted Time PHQ-9 Depression Total Score: 16 022 9:07 AM MECHANICAL AND AUTO BODY CAR CHECKER documented as of this encounter Care Teams Offset Platemaker Relationship Specialty Start Date End Date Anni Nair PA-C PCP - General Physician Business Risk Consultant 10/01/17 07/08/22 Shannan Malcolm CNP [address] [place] [address] [phone] PCP - General Nurse Practitioner - Family 07/09/22 Shannan Malcolm CNP [address] [place] [address] [phone] Assigned PCP 04/07/22 Nabeel Nolan MD [address] [place] [address] [phone] Assigned Behavioral Health Provider 06/02/22 09/21/22 Mattie Tellez APRN EDUCATION OFFICER [address] [place] [address] Assigned Behavioral Health Provider 09/22/22 documented as of this encounter
--- NOTE | 2024-04-14 15:00 | CRLHL7_ITS ---
For Patients: As a result of the Century Cures Act, medical imaging exams and procedure reports are released immediately into your electronic medical record. You may view this report before your referring provider. If you have questions, please contact your health care provider. INDICATION: ACUTE POST-PROCEDURAL PAIN FROM [facility], KIDNEY AND BLADDER PAIN, CONSTANT NAUSEA, HURTS TO EAT TECHNIQUE: CT abdomen and pelvis acquired with 81 mL Isovue 370 IV contrast. COMPARISON: 04/04/2024 abdomen ultrasound FINDINGS: Lower chest: Unremarkable. Liver: Unremarkable. Normal in size and attenuation. No masses. Gallbladder and bile ducts: Interval cholecystectomy with expected postop changes in the gallbladder fossa. No biliary dilation. Pancreas: Unremarkable. No mass or inflammation. Spleen: Unremarkable. Normal in size. No masses. Adrenal glands: Unremarkable. No nodules. Kidneys: Unremarkable. No masses, stones, or hydronephrosis. GI tract: Unremarkable. Normal in caliber. No sign of mass or inflammation. Vasculature: Unremarkable. Mesenteric arteries are patent. Lymph nodes: No lymphadenopathy. Omentum/Peritoneum/Abdominal Wall: Several port sites in the anterior abdominal wall. Pelvis: IUD in the uterus. Bones: Unremarkable for age. IMPRESSION: Interval cholecystectomy. No complications identified. No acute findings. Please note that all CT scans at this facility use dose modulation, iterative reconstruction, and/or weight-based dosing when appropriate to reduce radiation dose to as low as reasonably achievable. Dictated by Rashard Abarca MD @ 04/15/2024 11:51:43 AM (Electronically Signed)
== END 2024-04-14 14:34 | disposition home or self-care (01) ==
PROVIDERS: Visit Provider Surgery
DX: G89.18 Other acute postprocedural pain (principal); R11.0 Nausea; Z90.49 Acquired absence of other specified parts of digestive tract
CPT/HCPCS: 74177; Q9967

== ENCOUNTER 2025-04-28 18:33 | Emergency (ER) | payer MEDICAID, SELFPAY ==
[2025-04-28 18:37] VITALS: BP 136/82; PULSE 120; RESP 20; TEMP 36.5; O2SAT 99; BMI 30.2
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
--- NOTE | 2025-04-28 19:07 | CRLHL7_ITS ---
For Patients: As a result of the Cures Act, medical imaging exams and procedure reports are released immediately into your electronic medical record. You may view this report before your referring provider. If you have questions, please contact your health care provider. INDICATION: Pain. TECHNIQUE: CT cervical spine without contrast. COMPARISON: None. FINDINGS: Vertebrae: Alignment is normal. There are no displaced fractures or suspicious bony lesions. Discs and facet joints: There are minimal diffuse degenerative changes in the disc spaces and facet joints. Extraspinal findings: Paraspinous soft tissues are unremarkable. IMPRESSION: 1. No sign of acute injury. 2. Minimal multilevel degenerative spondylosis. Please note that all CT scans at this facility use dose modulation, iterative reconstruction, and/or weight-based dosing when appropriate to reduce radiation dose to as low as reasonably achievable. Dictated by Fausto Mims MD @ 04/28/2025 7:28:50 PM (Electronically Signed)
[2025-04-28] MEDS: LIDOCAINE 5% PATCH 1 PATCH TRANSDERMA (19:30)
== END 2025-04-28 20:08 | disposition home or self-care (01) ==
PROVIDERS: Emergency Provider Student in an Organized Health Care Education/Training Program
DX: M47.812 Spondylosis without myelopathy or radiculopathy, cervical region (principal)
CPT/HCPCS: 72125; 96372; 99284; A9270; J1885